=== PATIENT | female | born 1950 | race Hispanic/Latino ===

== ENCOUNTER 2016-08-09 10:10 | Inpatient (IN) | payer MEDICARE, BC ==
[2016-08-09 10:11] VITALS: PULSE 103
[2016-08-09] MEDS ORDERED: Albuterol-Ipratrop 3 mg / 0.5 (3 ml) UD IH STA ×2 (10:22→10:35)
--- NOTE | 2016-08-09 10:44 | ED PDOC ---
HPI: SOB/CHF/COPD Time Seen by Provider: 08/09/16 10:14 Chief Complaint (Nursing): Shortness Of Breath Chief Complaint (Provider): Shortness Of Breath History Per: Patient History/Exam Limitations: no limitations Onset/Duration Of Symptoms: Days Current Symptoms Are (Timing): Still Present Quality: Tightness Exacerbating Factor(s): Coughing Current Respiratory Medications: See Home Med List Severity: Moderate Additional Complaint(s): Patient is a 66 year old female with a history of COPD and AFib, presents to ED for SOB and chest tightness upon waking this morning. Patient notes history of intubation, no relief using nebulizer at home. Denies cough or fever. Past Medical History Reviewed: Historical Data, Nursing Documentation, Vital Signs Vital Signs: Last Vital Signs Temp 97 F L 08/09/16 10:13 Pulse 53 L 08/09/16 10:13 Resp BP 142/68 08/09/16 10:13 Pulse Ox 96 08/09/16 11:06 - Medical History PMH: Arthritis, Cardia Arrhythmia (MAT), CHF, COPD, HTN, Hypercholesterolemia, Peripheral Edema, Rheumatoid Arthritis Denies: Asthma, HIV, Pneumonia, Chronic Kidney Disease - Surgical History Surgical History: Cholecystectomy - Family History Family History: States: Unknown Family Hx - Living Arrangements Living Arrangements: With Family - Home Medications Home Medications: Ambulatory Orders Medication Instructions Recorded Aspirin [Aspirin Chewable] 81 mg PO DAILY #0 chew 07/15/15 Atorvastatin [Lipitor] 10 mg PO HS #0 tab 07/15/15 Gabapentin [Neurontin] 100 mg PO DAILY #0 cap 07/15/15 Gabapentin [Neurontin] 300 mg PO HS #0 cap 07/15/15 Methotrexate 15 mg PO SAT #0 tab 07/15/15 Metoprolol Succinate [Toprol XL] 50 mg PO DAILY #0 tab 07/15/15 Cholecalciferol (Vitamin D3) 2,000 unit PO DAILY 04/23/16 [Vitamin D3] Folic Acid 2 mg PO BID 04/23/16 Hydroxychloroquine Sulfate 400 mg PO DAILY 04/23/16 [Plaquenil] Fluticasone Propionate [Flonase] 2 spr KEVIN DAILY #1 bottle 05/06/16 Tiotropium [Spiriva] 18 mcg INH DAILY #30 cap 05/06/16 acetaZOLAMIDE [Diamox Sequels 500 500 mg PO DAILY #30 cap 05/06/16 mg SR Cap] Albuterol Sulfate [Proair Hfa] 2 puff IH Q4H PRN 08/09/16 Furosemide [Lasix] 40 mg PO BID 08/09/16 Levalbuterol [Xopenex] 1.25 mg PO Q8H 08/09/16 Levocetirizine Dihydrochloride 5 mg PO DAILY 08/09/16 [Xyzal] Mometasone [Asmanex Twisthaler 220 1 puff IH DAILY 08/09/16 MCG] Multivit/Folic Acid/Vit K1 1 tab PO DAILY 08/09/16 [One-A-Day Women's 50 Plus Tab] Omeprazole [Omeprazole] 20 mg PO DAILY 08/09/16 methylPREDNISolone [Medrol] 8 mg PO Q48H 08/09/16 - Allergies Allergies/Adverse Reactions: Allergies Allergy/AdvReac Type Severity Reaction Status Date / Time iodine Allergy RASH Verified 08/09/16 10:16 shellfish derived Allergy RASH Verified 08/09/16 10:16 strawberry Allergy RASH Verified 08/09/16 10:16 Review of Systems ROS Statement: Except As Marked, All Systems Reviewed And Found Negative Constitutional: Negative for: Fever, Chills Cardiovascular: Negative for: Chest Pain, Palpitations Respiratory: Positive for: Shortness of Breath. Negative for: Cough, Sputum Gastrointestinal: Negative for: Nausea, Vomiting Physical Exam - Reviewed Nursing Documentation Reviewed: Yes Vital Signs Reviewed: Yes - Physical Exam Appears: Positive for: Uncomfortable (mild respiratory distress) Skin: Positive for: Normal Color, Warm Eye Exam: Positive for: Normal appearance Neck: Positive for: Normal, Painless ROM Cardiovascular/Chest: Positive for: Chest Non Tender, Tachycardia, Irregularly Irregular. Negative for: Murmur Respiratory: Positive for: Decreased Breath Sounds (bilaterally ), Respiratory Distress (mild). Negative for: Wheezing Gastrointestinal/Abdominal: Positive for: Normal Exam. Negative for: Tenderness , Distended Back: Positive for: Normal Inspection Extremity: Positive for: Normal ROM. Negative for: Pedal Edema, Calf Tenderness Neurologic/Psych: Positive for: Alert, Oriented. Negative for: Motor/Sensory Deficits - ECG O2 Sat by Pulse Oximetry: 96 (RA) Pulse Ox Interpretation: Normal - Critical Care Total Time (In Min): 35 Medical Decision Making Medical Decision Making: Time: 1020 Initial impression: COPD exacerbation Initial plan: -- ABG -- EKG -- CMP -- CBC -- Duoneb x2 and Solumedrol IV -- Vapotherm Scribe Attestation: Documented by Chio Mayer acting as a scribe for Ken Roa MD. MD Willsonibsandor Attestation: All medical record entries made by the Scribe were at my direction and personally dictated by me. I have reviewed the chart and agree that the record accurately reflects my personal performance of the history, physical exam, medical decision making, and the department course for this patient. I have also personally directed, reviewed, and agree with the discharge instructions and disposition. Disposition - Clinical Impression Clinical Impression: COPD (chronic obstructive pulmonary disease), Hypercarbia - Patient ED Disposition Is Patient to be Admitted: Yes - Disposition Disposition Time: 11:02 Condition: FAIR - Pt Status Changed To: Hospital Disposition Of: Inpatient - Admit Certification Admit to Inpatient:: After my assessment, the patient will require hospitalization for at least two midnights. This is because of the severity of symptoms shown, intensity of services needed, and/or the medical risk in this patient being treated as an outpatient. - POA Present On Arrival: None
[2016-08-09] MEDS ORDERED: Albuterol-Ipratrop 3 mg / 0.5 (3 ml) UD ONE (10:56)
[2016-08-09 11:03] LABS: ABG ALLEN TEST YES; ARTERIAL BLOOD GAS HCO3 34.6 mmol/L (21-28); ARTERIAL BLOOD GAS PH 7.37 (7.35-7.45); ARTERIAL BLOOD GAS PO2 19 mm/Hg (80-100)
[2016-08-09] MEDS ORDERED: Azithromycin 500 MG in Sodium Chloride 0.9% 250 ML IVPB STA (11:06)
[2016-08-09] MEDS ORDERED: cefTRIAXone (Rocephin) 1 gm Inj ONE (11:07)
[2016-08-09 11:11] LABS: BASO % 0.5 % (0.0-2.0); EOS # 0.1 K/uL (0.0-0.7); EOS % 0.7 % (0.0-4.0); HEMATOCRIT 39.7 % (34.0-47.0); LYMPH # 0.5 K/uL (1.0-4.3); MEAN CELL VOLUME 102.8 fl (81.0-99.0); MEAN CORPUSCULAR HEMOGLOBIN 33.5 pg (27.0-31.0); MEAN CORPUSCULAR HGB CONC 32.6 g/dL (33.0-37.0); MEAN PLATELET VOLUME 8.8 fl (7.2-11.7); MONO # 0.6 K/uL (0.0-0.8); MONO % 6.5 % (0.0-10.0); NEUT # 8.1 K/uL (1.8-7.0); NEUT % 87.3 % (50.0-75.0); NRBC % 0.2 % (0.0-0.0); PLATELET COUNT 207 K/uL (130-400); RED CELL DISTRIBUTION WIDTH 16.3 % (11.5-14.5); WHITE BLOOD COUNT 9.2 K/uL (4.8-10.8)
[2016-08-09 11:20] LABS: ALB/GLOB RATIO 1.1 (1.0-2.1); ALKALINE PHOSPHATASE 102 U/L (38-126); ALT/SGPT 29 U/L (9-52); AST/SGOT 34 U/L (14-36); BILIRUBIN,TOTAL 0.7 mg/dl (0.2-1.3); BLOOD UREA NITROGEN 14 mg/dl (7-17); CALCIUM 9.8 mg/dL (8.4-10.2); CHLORIDE 90 mmol/L (98-107); GFR AFRICAN-AMERICAN > 60; GLUCOSE,RANDOM 125 mg/dL (65-105); POTASSIUM 3.8 MMOL/L (3.6-5.0); SODIUM 137 mmol/l (132-148); TOTAL PROTEIN 7.8 G/DL (6.3-8.2)
[2016-08-09 11:31] LABS: CARBON DIOXIDE 40 mmol/L (22-30)
[2016-08-09 12:00] LABS: BASOPHIL 1 % (0-2); EOSINOPHIL 2 % (0-7); NEUTROPHIL 87 % (42-75); TOTAL CELLS COUNTED 100
[2016-08-09] MEDS ORDERED: Levalbuterol 1.25 MG/3 ML Inhal Soln UD INH SCH (12:30)
[2016-08-09] MEDS ORDERED: Sodium Chloride 3% for Inhalation 4 ML VIAL.NEB IH PRN (12:35)
--- NOTE | 2016-08-09 13:07 | RAD ---
HISTORY: Cough. COMPARISON: 06/16/2015 and 04/25/2016. FINDINGS: LUNGS: New right lower lobe infiltrate. New left upper lobe infiltrate. PLEURA: No significant pleural effusion identified, no pneumothorax apparent. CARDIOVASCULAR: Normal. OSSEOUS STRUCTURES: No significant abnormalities. VISUALIZED UPPER ABDOMEN: Normal. OTHER FINDINGS: None. IMPRESSION: Bilateral infiltrates, these represent new findings compared to prior studies. Follow-up to resolution advised.
--- NOTE | 2016-08-09 13:18 | CP.PCM.HP ---
History of Present Illness - History of Present Illness History of Present Illness: Hospitalist Admission H&P (Patient was seen and examined at 11:45 AM 08/09/16 ER BED #10 PMD: Dr. Yusuf CODES STATUS: FULL CODE. Has a Living Will at home and was instructed to bring this in on 08/10/16. Designates Macario [phone] as Health Care Proxy CHIEF COMPLAINT: Increasing SOB 66 year old female (PMHx: COPD, CHF, HTN, HLD, RA, Chornic LE Edema, Transient Atrial Fibrillation) who presents to the ER via EMS with her with a chief complaint of SOB. Patient states that for the past few days now she has been having worsening episodes of SOB. As mentioned she has a long history of COPD and is on home O2 at 2L via [place]. She uses a walker and a wheelchair to get around at home. Initially these episodes of SOB were responding to her nebulizer treatments but this morning, the nebulizer was not providing any relief. Because of this her called EMS and she was brought to [facility] ER. Please note that the patient was admitted to ICU on 04/23/16 for treatment of Acute Hypercapnic Respiratory Failure secondary to COPD Exacerbation and CHF Exacerbation. She was then transferred to [facility] TCU on 04/28/16 to continue treatment and for PT/OT. She was treated during this admission also for UTI (+) Enterococcus with Microbid and repeat Urine Culture 05/04/16 was Negative. 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 She was then discharged home on 05/06/16. Currently upon FULL ROS there is NO chest pain, NO palpitations, NO fever (but states that she is always cold), NO increase in the amount of coughing (she states that she has a chronic cough that is nonproductive, she had one episode of coughing while being treated in the ER that produced light green material), SOB although present has improved slightly with nebulizer and steroid treatment in the ER, NO dysphagia/odynophagia, NO abdominal pain, NO n/v/d/c, No black or blood stools, NO burning/pain with urination, NO headache, (+) Blurriness of vision with the SOB but is currently not experiecing this, NO eye pain, NO loss of vision, NO ear pain/loss of hearing/tinnitus, NO new changes in hearing/ear pain, NO lightheadedness/dizziness, NO paresthesias, (+) Edema: chronic lower extremity edema that has remained stable and improved with the wrapping of the bilateral lower legs with vikas bandages, (+) Insomnia: has no trouble falling asleep but will wake up after 3 to 4 hours and then have difficulty falling back to sleep. 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, (+) Tobacco 2 packs a day for 50 years having quit many years ago, NO alcohol, NO illicit drugs Family HX: Mom ( Colon CA ), Dad ( HTN, DM 1 ), Brother ( HTN ) Present on Admission - Present on Admission Any Indicators Present on Admission: Yes History of DVT/PE: No History of Uncontrolled Diabetes: No Urinary Catheter: No Decubitus Ulcer Present: No Review of Systems - Review of Systems Review of Systems: Please see HPI Past Patient History - Infectious Disease Hx of Infectious Diseases: None - Past Medical History & Family History Past Medical History?: Yes Pertinent Family History: Please see HPI - Past Social History Smoking Status: Never Smoked - CARDIAC Hx Cardia Arrhythmia: Yes (MAT) Hx Congestive Heart Failure: Yes Hx Hypercholesterolemia: Yes Hx Hypertension: Yes Hx Peripheral Edema: Yes - PULMONARY Hx Asthma: No Hx Chronic Obstructive Pulmonary Disease (COPD): Yes Hx Pneumonia: No - NEUROLOGICAL Hx Neurological Disorder: No - HEENT Hx HEENT Problems: No - RENAL Hx Chronic Kidney Disease: No - ENDOCRINE/METABOLIC Hx Endocrine Disorders: No - HEMATOLOGICAL/ONCOLOGICAL Hx Human Immunodeficiency Virus (HIV): No - INTEGUMENTARY Other/Comment: 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 - MUSCULOSKELETAL/RHEUMATOLOGICAL Hx Arthritis: Yes Hx Rheumatoid Arthritis: Yes - GASTROINTESTINAL Hx Gastrointestinal Disorders: No - GENITOURINARY/GYNECOLOGICAL Hx Genitourinary Disorders: No - PSYCHIATRIC Hx Psychophysiologic Disorder: No Hx Substance Use: No - SURGICAL HISTORY Hx Cholecystectomy: Yes - ANESTHESIA Hx Anesthesia: Yes Hx Anesthesia Reactions: No Hx Malignant Hyperthermia: No Meds Allergies/Adverse Reactions: Allergies Allergy/AdvReac Type Severity Reaction Status Date / Time iodine Allergy RASH Verified 08/09/16 10:16 shellfish derived Allergy RASH Verified 08/09/16 10:16 strawberry Allergy RASH Verified 08/09/16 10:16 Physical Exam - Constitutional Appears: No Acute Distress Additional comments: Patient receiving nebulizer treatment at the time of my exam Will have to stop and take in a deep breath after every 5 to 6 words NO accessory muscles of respiration being used and no nasal flaring - Head Exam Additional comments: 1 x .5 cm pink papule in the junction of the occipital and bilateral parietal scalps - Eye Exam Eye Exam: EOMI, Normal appearance, PERRL Pupil Exam: NORMAL ACCOMODATION, PERRL - ENT Exam Additional comments: Ruptured Central Nasal Septum (she states that she has a history of this) Tongue with light yellow/white exudate that is easily scrapable Mucous membranes are dry NO pharyngeal erythema/exudate NO thyromegaly NO cervical/supraclavicular/submandibular lymphadenopathy - Neck Exam Additional comments: Please see ENT Exam - Respiratory Exam Additional comments: Bilateral mid to lower lung field inspiratory crackles Scattered expiratory wheezes bilaterally - Cardiovascular Exam Cardiovascular Exam: Irregular Rhythm Additional comments: Irregularly irregular NO M/R/G - GI/Abdominal Exam Additional comments: BSx4, Soft, NT, Central Obesity therefore Liver and Spleen could not be palpated , NO guarding/rebound tenderness - Extremities Exam Additional comments: BILATERAL PULSES ARE STRONG AND EQUAL CAPILLARY REFILL IS 2 SECONDS BILATERAL LOWER LEGS SHOW 1+ EDEMA UPTO THE BILATERAL TIBIAL TUBEROSITIES. BILATERAL LOWER LEGS ANTERIOR SURFACE HAS HYPERKERATOSIS AND AREAS OF PEELING OF THE SKIN WITHOUT EVIDENCE OF CELLULITIS BILATERAL FEET TOES SHOW CYANOSIS AND ARE SLIGHTLY COOL TO THE TOUCH - Neurological Exam Neurological exam: Alert, CN II-XII Intact, Oriented x3 - Psychiatric Exam Psychiatric exam: Normal Affect, Normal Mood Results - Vital Signs Recent Vital Signs: Last Vital Signs Temp 97 F L 08/09/16 10:13 Pulse 53 L 08/09/16 10:13 Resp 20 08/09/16 11:44 BP 142/68 08/09/16 10:13 Pulse Ox 96 08/09/16 11:13 - Labs Result Diagrams: 08/09/16 11:02 08/09/16 11:02 Assessment & Plan (1) COPD exacerbation Assessment and Plan: Admit to the Telemetry Unit Consult Pulmonology Dr. Kozel Solumedrol 60 mg IV Q6H Xopenex 1.25 mg nebulizer Q8H Hi Flow Oxygen 20 LPM 30% FiO2 Asmanex 220 mcg puff INH 1x/day Spiriva 18 mcg 2 PO INH of 1 capsule via Handihaler Device 1x/dayy Status: Acute (2) Bilateral pneumonia Assessment and Plan: Chest X Ray 08/09/16 shows new RLL and STEPHEN infiltrates Ceftriaxone 1 gm IV Q24H Azithromycin 500 mg IV Q24H F/U Rapid Influenza F/U Throat Culture F/U Urine Legionella F/U Urine S. pneumniae F/U Mycoplasma IgM and IgG F/U Blood Culture F/U further antibiotic recommendations from ID Dr. Armani Cantor Status: Acute (3) Transient atrial fibrillation Assessment and Plan: Patient has a history of this as documented on 06/29/15 admission Upon last admission in April 2016 patient was not in Atrial Fibrillation She states that she is being followed as an outpatient by [employer] Dr. Cole who has been consulted. ASA 81 mg PO 1x/day Metoprolol XL 50 mg PO 1x/day F/U TSH, T4 Status: Chronic (4) History of CHF (congestive heart failure) Assessment and Plan: Please see last Echocardiogram report 04/24/16 Lasix 40 mg PO 2x/day Metoprolol XL 50 mg PO 1x/day Acetazolamide 500 mg PO 1x/day Patient is being followed by Dr. Cole as outpatient Likely not on an VIKAS I/ARB because of the Chronic Cough Secondary to COPD Status: Chronic (5) HTN (hypertension) Assessment and Plan: Metoprolol XL 50 mg PO 1x/day Status: Chronic (6) Hyperlipidemia Assessment and Plan: Atorvastatin 10 mg PO QHS F/U Lipid Panel Status: Chronic (7) GERD (gastroesophageal reflux disease) Assessment and Plan: Omeprazole 20 mg PO 1x/day Status: Chronic (8) Rheumatoid arthritis Assessment and Plan: Methotrexate 15 mg PO 1x/day on Saturday Folic Acid 2 mg PO 2x/day Plaquenil 400 mg PO 1x/day Gabapentin 300 mg PO QHS Gabapentin 100 mg PO 1x/day Status: Chronic Priority: High (9) Leg edema Assessment and Plan: This is a chronic issue Please see description of findings in Extremities Exam Lac-hydrin 12 % Lotion Topical 2x/day to Bilateral Lower Legs and then Wrap with Vikas Bandages Status: Chronic Priority: Medium (10) Prophylactic measure Assessment and Plan: Lovenox 40 mg SC 1x/day for DVT Prophylaxis Omeprazole 20 mg PO 1x/day for GI Prophylaxis Florastor 250 mg PO 2x/day as patient has been placed on antibiotics for the Bilateral Lung Infiltrates MVI PO 1x/day Cholecalciferal 2,000 Units PO 1x/day Status: Acute
--- NOTE | 2016-08-09 14:43 | CP.PCM.CON ---
History of Present Illness - History of Present Illness History of Present Illness: This 66-year-old female who is a former cigarette smoker presented to the hospital after she began to have increased somnolence and dropping items suggesting exacerbation of her hypercapnic respiratory failure. She has long- standing history of chronic obstructive pulmonary disease with prior episodes of acute on chronic respiratory failure with hypercapnia and hypoxemia. She suffers from pulmonary hypertension as well as rheumatoid arthritis, spinal stenosis, hypertension, hyperlipidemia, atrial fibrillation/MAT, chronic and venous insufficiency stasis dermatitis of both lower extremities. She had been in her usual state of health at home and taking all her medications as prescribed when her family members noted the above symptoms began suddenly the day of admission. She denied chest pain. There has been no hemoptysis. No fever or chills. Small quantity of sputum is being expectorated with a pale yellow color. Chest x-ray in emergency department showed questionable pulmonary infiltrates bilaterally. Review of Systems - Constitutional Constitutional: Daytime Sleepiness, Fatigue - Cardiovascular Cardiovascular: Irregular Heart Rhythm, Leg Edema - Respiratory Respiratory: Cough, Dyspnea, Change in Mucous Color - Musculoskeletal Musculoskeletal: Back Pain - Integumentary Integumentary: Erythema, Swelling - Neurological Neurological: Confusion Past Patient History - Infectious Disease Hx of Infectious Diseases: None - Past Medical History & Family History Past Medical History?: Yes Pertinent Family History: Colon cancer, coronary artery disease, hyperlipidemia, diabetes mellitus, hypertension. - Past Social History Smoking Status: Former Smoker Chewing Tobacco Use: No Cigar Use: No Alcohol: Social Drugs: Denies Home Situation {Lives}: With Family - CARDIAC Hx Atrial Fibrillation: Yes Hx Cardia Arrhythmia: Yes (MAT) Hx Congestive Heart Failure: Yes Hx Hypercholesterolemia: Yes Hx Hypertension: Yes Hx Peripheral Edema: Yes - PULMONARY Hx Asthma: No Hx Bronchitis: Yes Hx Chronic Obstructive Pulmonary Disease (COPD): Yes Hx Pneumonia: No Other/Comment: pulmonary hypertension - NEUROLOGICAL Hx Neurological Disorder: No - HEENT Hx HEENT Problems: No - RENAL Hx Chronic Kidney Disease: No - ENDOCRINE/METABOLIC Hx Endocrine Disorders: No - HEMATOLOGICAL/ONCOLOGICAL Hx Anemia: Yes Hx Human Immunodeficiency Virus (HIV): No - INTEGUMENTARY Hx Dermatological Problems: Yes Other/Comment: 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 - MUSCULOSKELETAL/RHEUMATOLOGICAL Hx Rheumatoid Arthritis: Yes Hx Spinal Stenosis: Yes - GASTROINTESTINAL Hx Gastrointestinal Disorders: No - GENITOURINARY/GYNECOLOGICAL Hx Genitourinary Disorders: No - PSYCHIATRIC Hx Psychophysiologic Disorder: No Hx Substance Use: No - SURGICAL HISTORY Hx Cholecystectomy: Yes Hx Joint Replacement: Yes (total right hip) - ANESTHESIA Hx Anesthesia: Yes Hx Anesthesia Reactions: No Hx Malignant Hyperthermia: No Meds Allergies/Adverse Reactions: Allergies Allergy/AdvReac Type Severity Reaction Status Date / Time iodine Allergy RASH Verified 08/09/16 10:16 shellfish derived Allergy RASH Verified 08/09/16 10:16 strawberry Allergy RASH Verified 08/09/16 10:16 - Medications Medications: Current Medications Acetazolamide (Diamox Sequels 500 Mg Sr Cap) 500 mg PO DAILY [facility] Aspirin (Aspirin Chewable) 81 mg PO DAILY [facility] Atorvastatin Calcium (Lipitor) 10 mg PO HS [facility] Cholecalciferol (Vitamin D) 2,000 iu PO DAILY [facility] Enoxaparin Sodium (Lovenox) 40 mg SC DAILY [facility] PRN Reason: Protocol Fluticasone Propionate (Flonase) 2 spr KEVIN DAILY [facility] Folic Acid (Folic Acid) 2 mg PO BID [facility] Furosemide (Lasix) 40 mg PO BID [facility] Gabapentin (Neurontin) 100 mg PO DAILY [facility] Gabapentin (Neurontin) 300 mg PO HS [facility] Hydroxychloroquine Sulfate (Plaquenil) 400 mg PO DAILY [facility] Azithromycin 500 mg/ Sodium (Chloride) 250 mls @ 250 mls/hr IVPB DAILY [facility] Ceftriaxone Sodium 1 gm/ (Sodium Chloride) 100 mls @ 100 mls/hr IVPB Q24H [facility] Levalbuterol HCl (Xopenex) 1.25 mg INH Q8H [facility] Loratadine (Claritin) 10 mg PO DAILY [facility] Methotrexate (Methotrexate) 15 mg PO SAT [facility] PRN Reason: Protocol Methylprednisolone (Solu-Medrol) 60 mg IVP Q6H [facility] Metoprolol Succinate (Toprol Xl) 50 mg PO DAILY [facility] Mometasone Furoate (Asmanex Twisthaler 220 Mcg) 1 puff IH DAILY [facility] Multivitamins/Minerals (Therapeutic-M Tab) 1 tab PO DAILY [facility] Pantoprazole Sodium (Protonix Ec Tab) 40 mg PO DAILY [facility] Saccharomyces Boulardii (Florastor) 250 mg PO BID [facility] Tiotropium [place] (Spiriva) 18 mcg INH DAILY [facility] Physical Exam - Additional Findings Additional findings: Overweight female who is awake and oriented and alert at this time. Peripheral cyanosis cool extremities is noted in both feet. Dorsalis pedis pulse is decreased but present bilaterally. Contact dermatitis changes secondary to long-standing dependent edema is noted in both lower extremities. No calf tenderness or Homans sign. No palpable lymphadenopathy. Pharynx is pink and mucous membranes are moist. No exudate. Conjunctivae are pink and there is no scleral icterus. Pupils are equal and reactive. Neck supple and trachea is midline. No neck vein distention or carotid bruit. No palpable thyromegaly. Increased AP diameter of the thorax is noted mild cervical kyphosis. No dullness to percussion. Breath sounds are markedly diminished bilaterally. Dry rales are heard in the lower lung andrade posteriorly. Occasional scattered expiratory wheezes are heard bilaterally. No bronchial breathing or egophony. Heart sounds are distant. Rhythm is irregularly irregular. Abdomen is fleshy, obese and nontender. Bowel sounds are normal. Results - Vital Signs Recent Vital Signs: Last Vital Signs Temp 97 F L 08/09/16 10:13 Pulse 77 08/09/16 12:38 Resp 16 08/09/16 12:38 BP 128/75 08/09/16 12:38 Pulse Ox 96 08/09/16 12:38 - Labs Result Diagrams: 08/09/16 11:02 08/09/16 11:02 Assessment & Plan (1) Acute on chronic respiratory failure with hypoxia and hypercapnia Status: Acute Priority: High (2) COPD (chronic obstructive pulmonary disease) Status: Chronic Priority: High (3) Atrial fibrillation Status: Acute Priority: High Comment: controlled ventricular rate (4) Leg edema Status: Chronic Priority: Medium (5) Rheumatoid arthritis Status: Chronic Priority: High (6) Pulmonary hypertension Status: Chronic Priority: High - Assessment and Plan (Free Text) Plan: Treatment of underlying chronic obstructive pulmonary disease and hypercarbic respiratory failure and hypoxemia with the use of high flow nasal oxygen. Aerosol therapy and parenteral corticosteroids will also be employed. Empiric antibiotic therapy for possible pneumonia. Maintenance medications will be continued. Breast surgery consult regarding chronic dependent edema of the lower extremities with cyanosis. Prophylactic anticoagulant as per protocol. - Date & Time Date: 08/09/16 Time: 14:43
[2016-08-09] MEDS: Mometasone 220 mcg/puff-14 puff Inh IH SCH (15:07)
[2016-08-09] MEDS: Enoxaparin 40 mg Syringe SC SCH (15:08)
[2016-08-09] MEDS: Tiotropium 18 mcg Cap For Inhalation INH SCH (15:09)
[2016-08-09] MEDS: Multivitamin With Minerals Tab PO SCH (15:09)
[2016-08-09] MEDS: Pantoprazole 40 mg EC Tab PO SCH (15:14)
--- NOTE | 2016-08-09 16:20 | CP.PCM.CON ---
<Margarita Vega - Last Filed: 08/09/16 16:15> History of Present Illness - History of Present Illness History of Present Illness: Vascular surgery consult - Dr. Valdez Consult Re: Venous Insufficiency 66 yo F w/ hx of COPD, CHF, HTN, HL, RA, Chronic LE edema, Parox. Afib, who presented to ED w/ worsening SOB and COPD exacerbation. Vascular surgery is consulted for Venous insufficiency. Pt is S&E at bedside. At time of exam pt is SOB and history is obtained mostly from . Per pt. has chronic swelling of the legs B/L. This is currently no better or worse than usual. She does not experience leg discomfort while walking, however is unable to walk a block without becoming SOB. She has never experienced any ulcers in the extremities. Pt states that in the past she has used evans wraps at home and lasix to manage the swelling. Review of Systems - Review of Systems All systems: reviewed and no additional remarkable complaints except (as per HPI ) Past Patient History - Infectious Disease Hx of Infectious Diseases: None - Past Medical History & Family History Past Medical History?: Yes - CARDIAC Hx Cardia Arrhythmia: Yes (MAT) Hx Congestive Heart Failure: Yes Hx Hypercholesterolemia: Yes Hx Hypertension: Yes Hx Peripheral Edema: Yes - PULMONARY Hx Asthma: No Hx Chronic Obstructive Pulmonary Disease (COPD): Yes Hx Pneumonia: No - NEUROLOGICAL Hx Neurological Disorder: No - HEENT Hx HEENT Problems: No - RENAL Hx Chronic Kidney Disease: No - ENDOCRINE/METABOLIC Hx Endocrine Disorders: No - HEMATOLOGICAL/ONCOLOGICAL Hx Human Immunodeficiency Virus (HIV): No - INTEGUMENTARY Other/Comment: 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 - MUSCULOSKELETAL/RHEUMATOLOGICAL Hx Arthritis: Yes Hx Rheumatoid Arthritis: Yes - GASTROINTESTINAL Hx Gastrointestinal Disorders: No - GENITOURINARY/GYNECOLOGICAL Hx Genitourinary Disorders: No - PSYCHIATRIC Hx Psychophysiologic Disorder: No Hx Substance Use: No - SURGICAL HISTORY Hx Cholecystectomy: Yes - ANESTHESIA Hx Anesthesia: Yes Hx Anesthesia Reactions: No Hx Malignant Hyperthermia: No Meds Allergies/Adverse Reactions: Allergies Allergy/AdvReac Type Severity Reaction Status Date / Time iodine Allergy RASH Verified 08/09/16 10:16 shellfish derived Allergy RASH Verified 08/09/16 10:16 strawberry Allergy RASH Verified 08/09/16 10:16 - Medications Medications: Current Medications Acetazolamide (Diamox Sequels 500 Mg Sr Cap) 500 mg PO DAILY [facility] Aspirin (Aspirin Chewable) 81 mg PO DAILY [facility] Last Admin: 08/09/16 15:14 Dose: 81 mg Atorvastatin Calcium (Lipitor) 10 mg PO HS [facility] Cholecalciferol (Vitamin D) 2,000 iu PO DAILY [facility] Enoxaparin Sodium (Lovenox) 40 mg SC DAILY [facility] PRN Reason: Protocol Last Admin: 08/09/16 15:08 Dose: 40 mg Fluticasone Propionate (Flonase) 2 spr KEVIN DAILY [facility] Folic Acid (Folic Acid) 2 mg PO BID [facility] Furosemide (Lasix) 40 mg PO BID [facility] Gabapentin (Neurontin) 100 mg PO DAILY [facility] Gabapentin (Neurontin) 300 mg PO HS [facility] Hydroxychloroquine Sulfate (Plaquenil) 400 mg PO DAILY [facility] Azithromycin 500 mg/ Sodium (Chloride) 250 mls @ 250 mls/hr IVPB DAILY [facility] Ceftriaxone Sodium 1 gm/ (Sodium Chloride) 100 mls @ 100 mls/hr IVPB Q24H [facility] Levalbuterol HCl (Xopenex) 1.25 mg INH Q8H [facility] Loratadine (Claritin) 10 mg PO DAILY [facility] Methotrexate (Methotrexate) 15 mg PO SAT [facility] PRN Reason: Protocol Methylprednisolone (Solu-Medrol) 60 mg IVP Q6H [facility] Metoprolol Succinate (Toprol Xl) 50 mg PO DAILY [facility] Mometasone Furoate (Asmanex Twisthaler 220 Mcg) 1 puff IH DAILY [facility] Last Admin: 08/09/16 15:07 Dose: 1 puff Multivitamins/Minerals (Therapeutic-M Tab) 1 tab PO DAILY [facility] Last Admin: 08/09/16 15:09 Dose: 1 tab Pantoprazole Sodium (Protonix Ec Tab) 40 mg PO DAILY [facility] Last Admin: 08/09/16 15:14 Dose: 40 mg Saccharomyces Boulardii (Florastor) 250 mg PO BID [facility] Tiotropium [place] (Spiriva) 18 mcg INH DAILY [facility] Last Admin: 08/09/16 15:09 Dose: 18 mcg Physical Exam - Constitutional Appears: In Acute Distress (SOB, Tachypneic) - Head Exam Head Exam: ATRAUMATIC, NORMAL INSPECTION, NORMOCEPHALIC - Eye Exam Eye Exam: Normal appearance - Respiratory Exam Respiratory Exam: Prolonged Expiratory Phase, Respiratory Distress Additional comments: on high flow O2 - Cardiovascular Exam Cardiovascular Exam: Tachycardia - Extremities Exam Extremities exam: Positive for: pedal edema, pedal pulses present (faint pedal and femoral pulses). Negative for: tenderness Additional comments: blue skin coloration to the toes pitting edema mild venous stasis changes - Neurological Exam Neurological exam: Alert, Oriented x3 - Psychiatric Exam Psychiatric exam: Anxious, Normal Affect - Skin Skin Exam: Cyanosis, Dry, Intact Results - Vital Signs Recent Vital Signs: Last Vital Signs Temp 97.6 F 08/09/16 15:54 Pulse 66 08/09/16 15:54 Resp 22 08/09/16 15:54 BP 164/70 H 08/09/16 15:54 Pulse Ox 89 L 08/09/16 15:54 - Labs Result Diagrams: 08/09/16 11:02 08/09/16 11:02 Assessment & Plan - Assessment and Plan (Free Text) Assessment: 66 yo F admitted w/ COPD exacerbation, vascular surgery consulted for venous insufficiency -Primary concern at this time is her oxygenation -ICU evaluation and breathing tx as per Pulmonology -Peripheral pulses poor -Will order for Arterial and Venous Duplex LE to be done when pt. more stable Dw Dr Courtney Vega PGY2 <Brayan Valdez - Last Filed: 08/09/16 17:00> Meds - Medications Medications: Current Medications Acetazolamide (Diamox Sequels 500 Mg Sr Cap) 500 mg PO DAILY [facility] Aspirin (Aspirin Chewable) 81 mg PO DAILY [facility] Last Admin: 08/09/16 15:14 Dose: 81 mg Atorvastatin Calcium (Lipitor) 10 mg PO HS [facility] Cholecalciferol (Vitamin D) 2,000 iu PO DAILY [facility] Enoxaparin Sodium (Lovenox) 40 mg SC DAILY [facility] PRN Reason: Protocol Last Admin: 08/09/16 15:08 Dose: 40 mg Fluticasone Propionate (Flonase) 2 spr KEVIN DAILY [facility] Folic Acid (Folic Acid) 2 mg PO BID [facility] Furosemide (Lasix) 40 mg PO BID [facility] Gabapentin (Neurontin) 100 mg PO DAILY [facility] Gabapentin (Neurontin) 300 mg PO HS [facility] Hydroxychloroquine Sulfate (Plaquenil) 400 mg PO DAILY [facility] Azithromycin 500 mg/ Sodium (Chloride) 250 mls @ 250 mls/hr IVPB DAILY [facility] Ceftriaxone Sodium 1 gm/ (Sodium Chloride) 100 mls @ 100 mls/hr IVPB Q24H [facility] Last Admin: 08/09/16 16:22 Dose: Not Given Methylprednisolone 60 mg/ (Sodium Chloride) 50 mls @ 100 mls/hr IVPB Q6 [facility] Levalbuterol HCl (Xopenex) 1.25 mg INH Q8H [facility] Last Admin: 08/09/16 16:21 Dose: 1.25 mg Loratadine (Claritin) 10 mg PO DAILY [facility] Methotrexate (Methotrexate) 15 mg PO SAT [facility] PRN Reason: Protocol Metoprolol Succinate (Toprol Xl) 50 mg PO DAILY [facility] Mometasone Furoate (Asmanex Twisthaler 220 Mcg) 1 puff IH DAILY [facility] Last Admin: 08/09/16 15:07 Dose: 1 puff Multivitamins/Minerals (Therapeutic-M Tab) 1 tab PO DAILY [facility] Last Admin: 08/09/16 15:09 Dose: 1 tab Pantoprazole Sodium (Protonix Ec Tab) 40 mg PO DAILY [facility] Last Admin: 08/09/16 15:14 Dose: 40 mg Saccharomyces Boulardii (Florastor) 250 mg PO BID [facility] Tiotropium [place] (Spiriva) 18 mcg INH DAILY [facility] Last Admin: 08/09/16 15:09 Dose: 18 mcg Results - Vital Signs Recent Vital Signs: Last Vital Signs Temp 98.0 F 08/09/16 16:40 Pulse 72 08/09/16 16:40 Resp 20 08/09/16 16:40 BP 145/33 L 08/09/16 16:40 Pulse Ox 99 08/09/16 16:40 - Labs Result Diagrams: 08/09/16 11:02 08/09/16 11:02 Labs: Laboratory Results - last 24 hr 08/09/16 16:25 pCO2 111 H* pO2 30 L* HCO3 29.5 H ABG pH 7.17 L* ABG Total CO2 43.9 H ABG O2 Saturation 52.2 L ABG O2 Content 9.8 L ABG Base Excess 7.5 H ABG Hemoglobin 13.9 ABG Carboxyhemoglobin 2.3 H POC ABG HHb (Measured) 45.9 H ABG Methemoglobin 1.7 ABG O2 Capacity 18.8 Jorge Luis Test Yes A-a O2 Difference 45.0 Hgb O2 Saturation 50.1 L Liter Flow 35 Vent Mode Hfnc FiO2 30.0 Crit Value Called To Dr jimbo awan Crit Value Called By Rt Crit Value Read Back Y Blood Gas Notified Time 1631 Assessment & Plan - Assessment and Plan (Free Text) Plan: Patient seen and examined. 66 year-old female with significant risk factors for PAD including history of tobacco smoking presents with severe COPD exacerbation. Patient was noted to have bluish discoloration to her toes bilaterally which precipitated Vascular Surgery consult to assess for venous insufficiency. Patient is tachypneic with apparent difficulty breathing. Her recent arterial blood gas was significant for pronounced acidosis with severe hypercapnia and hypoxemia. Lower extremities are motor-sensory and neurologically intact with no signs of carrillo ischemia. There is bluish discoloration to the toes bilaterally which likely reflects poor respiratory status and possibly underlying venous insufficiency. From vascular standpoint I don't appreciate the need of surgical intervention. Supportive treatment is recommended at this point including lower extremities elevation, close monitoring and improvement of respiratory status.
[2016-08-09 16:31] LABS: ABG ALLEN TEST YES; ARTERIAL BLOOD FLOW 35; ARTERIAL BLOOD GAS HCO3 29.5 mmol/L (21-28); ARTERIAL BLOOD GAS MODE HFNC; ARTERIAL BLOOD GAS O2 CAPACITY 18.8 mL/dL (16-24); ARTERIAL BLOOD GAS O2 CONTENT 9.8 ML/dL (15-23); ARTERIAL BLOOD GAS PH 7.17 (7.35-7.45); ARTERIAL BLOOD GAS PO2 30 mm/Hg (80-100); ARTERIAL BLOOD HGB O2 SAT 50.1 % (95.0-98.0); CARBOXYHEMOGLOBIN 2.3 % (0.5-1.5); HHB 45.9 % (0.0-5.0); METHEMOGLOBIN 1.7 % (0.0-3.0)
--- NOTE | 2016-08-09 16:58 | CP.PCM.CON ---
History of Present Illness - History of Present Illness History of Present Illness: Infectious Disease Consultation Note- asked to see this patient at the request of the hospitalist for antibiotic management for COPD exacerbation . HPI- Pt. with multiple previous admissions for COPd exacerbation last admission was . last time I had seen patient for consultation was 06/2015 for copd exacerbation and she did well on empiric zithromax and ceftriaxone and pulmonary regimen as per pulm. Pt. is a 66 year old female with PMH of COPD, RA on immunosuppresive meds including methotrexate, prednisone and plaquenil, vascular insufficiency who was admitted today with progressive sob and worsening cough with yellow phlegm as per pt's who is providing most of the history since pt. is currently on BIPAP. pt. denies any fever or chills, denies any sick contacts and denies any recent travel. Also pt's LE have been getting more edematous and darker in color as per pt's who states he applies lac-hydrin to patient's legs daily. Pt. was found to be in hypercapneic resp distress today and hence was transferred to ICU for closer monitoring and is currently on BIPAP and her CXR shows b/l infiltrates and hence I'm asked to help with antibiotic management . Review of Systems - Review of Systems Review of Systems: ROS- denies any fever or chills, denies any VENEGAS, + cough with yellow phlegm past few days along with increase in her sob past few days, denies any chestpain, denies any abd. pain,denies any dysurea, denies any diarrhea worsening edema in B/L LE. denies any recent travel denies any sick contacts Past Patient History - Infectious Disease Hx of Infectious Diseases: None - Past Medical History & Family History Past Medical History?: Yes - Past Social History Smoking Status: Never Smoked Alcohol: None Drugs: Denies Home Situation {Lives}: With Family - CARDIAC Hx Cardia Arrhythmia: Yes (MAT) Hx Congestive Heart Failure: Yes Hx Hypercholesterolemia: Yes Hx Hypertension: Yes Hx Peripheral Edema: Yes - PULMONARY Hx Asthma: No Hx Chronic Obstructive Pulmonary Disease (COPD): Yes Hx Pneumonia: No - NEUROLOGICAL Hx Neurological Disorder: No - HEENT Hx HEENT Problems: No - RENAL Hx Chronic Kidney Disease: No - ENDOCRINE/METABOLIC Hx Endocrine Disorders: No - INTEGUMENTARY Other/Comment: 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 - MUSCULOSKELETAL/RHEUMATOLOGICAL Hx Arthritis: Yes Hx Rheumatoid Arthritis: Yes - GASTROINTESTINAL Hx Gastrointestinal Disorders: No - GENITOURINARY/GYNECOLOGICAL Hx Genitourinary Disorders: No - PSYCHIATRIC Hx Psychophysiologic Disorder: No Hx Substance Use: No - SURGICAL HISTORY Hx Cholecystectomy: Yes - ANESTHESIA Hx Anesthesia: Yes Hx Anesthesia Reactions: No Hx Malignant Hyperthermia: No Meds Allergies/Adverse Reactions: Allergies Allergy/AdvReac Type Severity Reaction Status Date / Time iodine Allergy RASH Verified 08/09/16 10:16 shellfish derived Allergy RASH Verified 08/09/16 10:16 strawberry Allergy RASH Verified 08/09/16 10:16 - Medications Medications: Current Medications Acetazolamide (Diamox Sequels 500 Mg Sr Cap) 500 mg PO DAILY [facility] Aspirin (Aspirin Chewable) 81 mg PO DAILY [facility] Last Admin: 08/09/16 15:14 Dose: 81 mg Atorvastatin Calcium (Lipitor) 10 mg PO HS [facility] Cholecalciferol (Vitamin D) 2,000 iu PO DAILY [facility] Enoxaparin Sodium (Lovenox) 40 mg SC DAILY [facility] PRN Reason: Protocol Last Admin: 08/09/16 15:08 Dose: 40 mg Fluticasone Propionate (Flonase) 2 spr KEVIN DAILY [facility] Folic Acid (Folic Acid) 2 mg PO BID [facility] Furosemide (Lasix) 40 mg PO BID [facility] Gabapentin (Neurontin) 100 mg PO DAILY [facility] Gabapentin (Neurontin) 300 mg PO HS [facility] Hydroxychloroquine Sulfate (Plaquenil) 400 mg PO DAILY [facility] Azithromycin 500 mg/ Sodium (Chloride) 250 mls @ 250 mls/hr IVPB DAILY [facility] Ceftriaxone Sodium 1 gm/ (Sodium Chloride) 100 mls @ 100 mls/hr IVPB Q24H [facility] Last Admin: 08/09/16 16:22 Dose: Not Given Methylprednisolone 60 mg/ (Sodium Chloride) 50 mls @ 100 mls/hr IVPB Q6 [facility] Levalbuterol HCl (Xopenex) 1.25 mg INH Q8H [facility] Last Admin: 08/09/16 16:21 Dose: 1.25 mg Loratadine (Claritin) 10 mg PO DAILY [facility] Methotrexate (Methotrexate) 15 mg PO SAT [facility] PRN Reason: Protocol Metoprolol Succinate (Toprol Xl) 50 mg PO DAILY [facility] Mometasone Furoate (Asmanex Twisthaler 220 Mcg) 1 puff IH DAILY [facility] Last Admin: 08/09/16 15:07 Dose: 1 puff Multivitamins/Minerals (Therapeutic-M Tab) 1 tab PO DAILY [facility] Last Admin: 08/09/16 15:09 Dose: 1 tab Pantoprazole Sodium (Protonix Ec Tab) 40 mg PO DAILY [facility] Last Admin: 08/09/16 15:14 Dose: 40 mg Saccharomyces Boulardii (Florastor) 250 mg PO BID [facility] Tiotropium [place] (Spiriva) 18 mcg INH DAILY [facility] Last Admin: 08/09/16 15:09 Dose: 18 mcg Physical Exam - Constitutional Appears: Chronically Ill - Head Exam Head Exam: ATRAUMATIC - Eye Exam Eye Exam: EOMI, PERRL - ENT Exam Additional comments: BIPAP in place - Neck Exam Neck exam: Positive for: Full Rom - Respiratory Exam Additional comments: tachypneic decreased air entry b/l no wheezing - Cardiovascular Exam Cardiovascular Exam: RRR, +S1, +S2 - GI/Abdominal Exam GI & Abdominal Exam: Normal Bowel Sounds, Soft Additional comments: NT, ND - Extremities Exam Additional comments: 2= pitting edema b/l LE along with venous stais dermatitis changes and discoloration and cold toes b/l - Neurological Exam Neurological exam: Alert, Oriented x3 Results - Vital Signs Recent Vital Signs: Last Vital Signs Temp 98.0 F 08/09/16 16:40 Pulse 72 08/09/16 16:40 Resp 20 08/09/16 16:40 BP 145/33 L 08/09/16 16:40 Pulse Ox 99 08/09/16 16:40 - Labs Result Diagrams: 08/09/16 11:02 08/09/16 11:02 Labs: Laboratory Results - last 24 hr 08/09/16 16:25 pCO2 111 H* pO2 30 L* HCO3 29.5 H ABG pH 7.17 L* ABG Total CO2 43.9 H ABG O2 Saturation 52.2 L ABG O2 Content 9.8 L ABG Base Excess 7.5 H ABG Hemoglobin 13.9 ABG Carboxyhemoglobin 2.3 H POC ABG HHb (Measured) 45.9 H ABG Methemoglobin 1.7 ABG O2 Capacity 18.8 Jorge Luis Test Yes A-a O2 Difference 45.0 Hgb O2 Saturation 50.1 L Liter Flow 35 Vent Mode Hfnc FiO2 30.0 Crit Value Called To Dr jimbo awan Crit Value Called By Rt Crit Value Read Back Y Blood Gas Notified Time 1631 Laboratory Results - last 72 hr 08/09/16 08/09/16 08/09/16 10:57 11:02 11:02 WBC 9.2 RBC 3.86 Hgb 13.0 Hct 39.7 MCV 102.8 H D MCH 33.5 H MCHC 32.6 L RDW 16.3 H Plt Count 207 MPV 8.8 Neut % (Auto) 87.3 H Lymph % (Auto) 5.0 L [place] % (Auto) 6.5 Eos % (Auto) 0.7 Baso % (Auto) 0.5 Neut # 8.1 H Lymph # 0.5 L [place] # 0.6 Eos # 0.1 Baso # 0.0 Neutrophils % (Manual) 87 H Lymphocytes % (Manual) 5 L Monocytes % (Manual) 5 Eosinophils % (Manual) 2 Basophils % (Manual) 1 Platelet Estimate Normal Anisocytosis (manual) Slight Macrocytosis (manual) Slight pCO2 76 H* pO2 19 L* HCO3 34.6 H ABG pH 7.37 ABG Total CO2 46.2 H ABG O2 Saturation 51.1 L ABG O2 Content ABG Base Excess 14.8 H ABG Hemoglobin ABG Carboxyhemoglobin POC ABG HHb (Measured) ABG Methemoglobin ABG O2 Capacity Jorge Luis Test Yes ABG Potassium 3.4 L A-a O2 Difference Hgb O2 Saturation Sodium 134.0 137 Chloride 93.0 L 90 L Glucose 126 H Lactate 0.8 Liter Flow Vent Mode FiO2 28.0 Crit Value Called To Crit Value Called By Crit Value Read Back Blood Gas Notified Time Potassium 3.8 Carbon Dioxide 40 H* Anion Gap 11 BUN 14 Creatinine 0.7 Est GFR ( Amer) > 60 Est GFR (Non-Af Amer) > 60 Random Glucose 125 H Calcium 9.8 Total Bilirubin 0.7 AST 34 ALT 29 Alkaline Phosphatase 102 Total Protein 7.8 Albumin 4.1 Globulin 3.7 Albumin/Globulin Ratio 1.1 Arterial Blood Potassium 3.4 L 08/09/16 16:25 WBC RBC Hgb Hct MCV MCH MCHC RDW Plt Count MPV Neut % (Auto) Lymph % (Auto) [place] % (Auto) Eos % (Auto) Baso % (Auto) Neut # Lymph # [place] # Eos # Baso # Neutrophils % (Manual) Lymphocytes % (Manual) Monocytes % (Manual) Eosinophils % (Manual) Basophils % (Manual) Platelet Estimate Anisocytosis (manual) Macrocytosis (manual) pCO2 111 H* pO2 30 L* HCO3 29.5 H ABG pH 7.17 L* ABG Total CO2 43.9 H ABG O2 Saturation 52.2 L ABG O2 Content 9.8 L ABG Base Excess 7.5 H ABG Hemoglobin 13.9 ABG Carboxyhemoglobin 2.3 H POC ABG HHb (Measured) 45.9 H ABG Methemoglobin 1.7 ABG O2 Capacity 18.8 Jorge Luis Test Yes ABG Potassium A-a O2 Difference 45.0 Hgb O2 Saturation 50.1 L Sodium Chloride Glucose Lactate Liter Flow 35 Vent Mode Hfnc FiO2 30.0 Crit Value Called To Dr jimbo awan Crit Value Called By Rt Crit Value Read Back Y Blood Gas Notified Time 1631 Potassium Carbon Dioxide Anion Gap BUN Creatinine Est GFR ( Amer) Est GFR (Non-Af Amer) Random Glucose Calcium Total Bilirubin AST ALT Alkaline Phosphatase Total Protein Albumin Globulin Albumin/Globulin Ratio Arterial Blood Potassium Accession No. : [id number] Patient Name / ID : SAROJ PRAKASH / [id number] Exam Date : 08/09/2016 10:25:25 ( Approved ) Study Comment : Sex / Age : F / [id number] Creator : Je Vicente MD Dictator : Je Vicente MD Extension Course Counselor : Wax Machine Operator : Je Vicente MD Approver2 : Report Date : 08/09/2016 13:05:23 My Comment : HISTORY: Cough. COMPARISON: 06/16/2015 and 04/25/2016. FINDINGS: LUNGS: New right lower lobe infiltrate. New left upper lobe infiltrate. PLEURA: No significant pleural effusion identified, no pneumothorax apparent. CARDIOVASCULAR: Normal. OSSEOUS STRUCTURES: No significant abnormalities. VISUALIZED UPPER ABDOMEN: Normal. OTHER FINDINGS: None. IMPRESSION: Bilateral infiltrates, these represent new findings compared to prior studies. Follow-up to resolution advised. Assessment & Plan (1) Acute on chronic respiratory failure with hypoxia and hypercapnia Status: Acute Priority: High (2) Bilateral pneumonia Status: Acute (3) History of CHF (congestive heart failure) Status: Chronic (4) Rheumatoid arthritis Status: Chronic Priority: High (5) Leg edema Status: Chronic Priority: Medium - Assessment and Plan (Free Text) Assessment: A/P- 66 year old female with RA on immunosuppressive meds, COPD, CHF, A.fib , venous stais presents with acute on chronic copd exacerbation with hypercapnea and b/l pneumonia. currently pt. is afebrile and has normal wbc count. b/l infiltrates on cxr. on BIPAP and tachypneic with poor resp sounds. venous staisis with dark cold toes b/l. 1. COPD exacerbation with hypercapnea 2.CHF 3.b/l LE venous stasis 4.RA plan- advise to place empirically on broad spectrum antibiotics for copd exacerbation and b/l pneumonia specially since pt. is also on immuno suppressive meds for her RA. check sputum cx. check blood cx x 2. advise to start pt. on IV zosyn for broad spectrum gram neg coverage. advise to also place pt. on Iv zithromax to cover for atypicals. check for mycoplasma serology and r/o legionella with urine legionella AG as well. respiratory close monitoring by ICU and pulmonary . All above d/w patient and her who is at bedside. Thank you for allowing me to take part in the care of this patient. All above also d/w Skills Auditor . ICU time 60 minutes.
[2016-08-09] MEDS: Saccharomyces Boulardi 250 mg Cap PO SCH (17:59)
[2016-08-09] MEDS: methylPREDNISolone 60 MG in Sodium Chloride 0.9% 50 ML IVPB SCH ×2 (17:59→22:27)
--- NOTE | 2016-08-09 18:16 | CP.CCUPN ---
CCU Subjective - Physician Review Subjective (Free Text): SYSTEMS ENGINEERING MANAGER PROGRESS NOTE Patient examined, interim events reviewed, discussed with PMD and Pulm: 66F, PMH COPD, RA, PVD, morbid obesity; admitted today with COPD exacerbation, cough with productive yellow sputum, admitted to telemetry unit, found to remain severely dyspneic despite multiple Duoneb treatments and IV steroids; at times unable to converse at all, appears cyanotic with SPO2 84-86% on nasal cannula oxygen. She has been in ICU previously on MV support for hypercapneic resp failure. ABG revealed severe hypercarbia, now transferred to ICU for BiPAP sup[port and close observation for need of MV support if she fails BiPAP. states she has had a productive cough in which phlegm converted to yellow today, no fevers, chills, diaphoresis, hemoptysis, chest discomfort reported. Afebrile, BP 150/70. 92 A Fib, 28, SPo2 (4% on 60% via BiPAP. ROS: as above, no other pertinent s/sx on 10+ system review. Allergies: Iodine, Shellfish, strawberry Home Meds: Diamox, ProAir, ASA, Vit D3, Flonase, Folic acid, Lasix, Neurontin , Plaquenil, MTX, Zyrtec, Medrol, Toprol XL, Omeprzaole, Spiriva. Other PSFMH: as above, HTN, CHF, Hyperlipidemia, arrhythmias with MAT and PSVT with paroxysmal A Fib: all nursing and historical notes reviewed, no new pertinent data relevant to current problems. No other distress noted: EXAM- HEENT: no icterus, Pupils equal and reactive. NECK: no visible JVD, supple, carotids equal upstroke bilat/no bruits CHEST: decreased BS at the bases, no wheezes, otherwise clear bilat HEART: regular, distant, S1S2, no murmur audible, no rubs. ABD: soft, no increased distention, no focal tenderness, no HSM. BS hypoactive , EXT: bilat L worse than R leg edema, chronic leg edematous and erythematous skin changes, all toes cool and cyanotic distally, distal pulses not palpable ( PT, DP). NEURO: no gross focal motor deficits SKIN: no rashes LABS: WBC= 9.2 HGB= 13.0 PLTs= 207K 7.17/111/30 50% Satn Na= 137 K= 3.8 HCO3= 40 BUN/Cr= 14/0.7 BS= 125 CXR: ( my interp) Bilateral hilar Left worse than R interstitial changes, basilar haziness. EKG: A Fib 82/min, non-specific ST -T changes. MAJOR PROBLEMS NOW: 1. Acute Hypercapneic and Hypoxemic resp failure 2 COPD exacerbation and Pneumonia 2. CHF with diastolic dysfx. 3. Peripheral arterial disease 4. Paroxysmal Atrial Fib with controlled VR 5. r/o LE DVT PLAN: 1. BiPAP support, follow serial ABGS (or SPo2 and ETCO2). 2. Empiric Abx coverage as Per ID. 3. Continued steroids, duonebs, Diamox. 4. Arterial and venous Doppler studies of the legs. 5. [place] MV support if BiPAP fails ( increasing hypercarbia / hypoxemia or lethargy). Clarify any Advance Directives.
[2016-08-09 19:20] LABS: ABG ALLEN TEST YES; ARTERIAL BLOOD GAS HCO3 31.3 mmol/L (21-28); ARTERIAL BLOOD GAS MODE BiPAP; ARTERIAL BLOOD GAS O2 CAPACITY 17.4 mL/dL (16-24); ARTERIAL BLOOD GAS O2 CONTENT 17.1 ML/dL (15-23); ARTERIAL BLOOD GAS PH 7.15 (7.35-7.45); ARTERIAL BLOOD GAS PO2 96 mm/Hg (80-100); ARTERIAL BLOOD HGB O2 SAT 93.9 % (95.0-98.0); CARBOXYHEMOGLOBIN 2.9 % (0.5-1.5); HHB 1.6 % (0.0-5.0); METHEMOGLOBIN 1.6 % (0.0-3.0)
[2016-08-09] MEDS: Piperacillin/Tazobact 3.375 GM in Sodium Chloride 0.9% 100 ML IVPB SCH (20:00)
[2016-08-09 20:18] LABS: ABG ALLEN TEST YES; ARTERIAL BLOOD GAS HCO3 32.3 mmol/L (21-28); ARTERIAL BLOOD GAS MODE BiPAP; ARTERIAL BLOOD GAS O2 CAPACITY 17.4 mL/dL (16-24); ARTERIAL BLOOD GAS O2 CONTENT 16.8 ML/dL (15-23); ARTERIAL BLOOD GAS PH 7.22 (7.35-7.45); ARTERIAL BLOOD GAS PO2 75 mm/Hg (80-100); ARTERIAL BLOOD HGB O2 SAT 91.9 % (95.0-98.0); CARBOXYHEMOGLOBIN 3.1 % (0.5-1.5); HHB 3.2 % (0.0-5.0); METHEMOGLOBIN 1.8 % (0.0-3.0)
[2016-08-10] MEDS: Levalbuterol 1.25 MG/3 ML Inhal Soln UD INH SCH ×4 (00:47→19:29)
[2016-08-10 05:04] LABS: ABG ALLEN TEST YES; ABG MECHANICAL RATE 16; ARTERIAL BLOOD GAS HCO3 34.9 mmol/L (21-28); ARTERIAL BLOOD GAS MODE BiPAP; ARTERIAL BLOOD GAS O2 CAPACITY 17.7 mL/dL (16-24); ARTERIAL BLOOD GAS O2 CONTENT 17.3 ML/dL (15-23); ARTERIAL BLOOD GAS PO2 78 mm/Hg (80-100); ARTERIAL BLOOD HGB O2 SAT 92.9 % (95.0-98.0); HHB 2.2 % (0.0-5.0); METHEMOGLOBIN 1.8 % (0.0-3.0)
[2016-08-10 05:31] LABS: BLOOD UREA NITROGEN 15 mg/dl (7-17); CALCIUM 9.2 mg/dL (8.4-10.2); CHLORIDE 90 mmol/L (98-107); CHOLESTEROL 159 mg/dL (0-199); GFR AFRICAN-AMERICAN > 60; GLUCOSE,RANDOM 133 mg/dL (65-105); PHOSPHOROUS 4.6 mg/dl (2.5-4.5); POTASSIUM 4.5 MMOL/L (3.6-5.0); SODIUM 140 mmol/l (132-148)
[2016-08-10 05:47] LABS: CARBON DIOXIDE 41 mmol/L (22-30)
[2016-08-10 05:50] LABS: T4 6.34 ug/dl (5.5-11.0)
[2016-08-10 06:03] LABS: THYROID STIMULATING HORMONE 0.63 mIU/ML (0.46-4.68)
[2016-08-10 06:12] LABS: BASO % 0.2 % (0.0-2.0); EOS % 0.4 % (0.0-4.0); HEMATOCRIT 39.7 % (34.0-47.0); LYMPH # 0.2 K/uL (1.0-4.3); LYMPH % 2.9 % (20.0-40.0); MEAN CELL VOLUME 103.4 fl (81.0-99.0); MEAN CORPUSCULAR HEMOGLOBIN 33.6 pg (27.0-31.0); MEAN CORPUSCULAR HGB CONC 32.5 g/dL (33.0-37.0); MEAN PLATELET VOLUME 9.1 fl (7.2-11.7); MONO # 0.1 K/uL (0.0-0.8); MONO % 1.9 % (0.0-10.0); NEUT # 7.1 K/uL (1.8-7.0); NEUT % 94.6 % (50.0-75.0); NRBC % 0.1 % (0.0-0.0); PLATELET COUNT 197 K/uL (130-400); RED CELL DISTRIBUTION WIDTH 16.9 % (11.5-14.5); WHITE BLOOD COUNT 7.5 K/uL (4.8-10.8)
[2016-08-10] MEDS: Piperacillin/Tazobact 3.375 GM in Sodium Chloride 0.9% 100 ML IVPB SCH ×3 (06:15→16:00)
[2016-08-10] MEDS: methylPREDNISolone 60 MG in Sodium Chloride 0.9% 50 ML IVPB SCH ×2 (06:18→09:53)
--- NOTE | 2016-08-10 08:16 | PQF CHF ---
This form is a permanent part of the medical record 08/09/16 Dr. White, Would you please further clarify the TYPE of CHF. I am unable to code the type of CHF off the Echo report. Documentation that the patient has a history of CHF ( Please see last echo report of 04/24/16) Medications include: Lasix, metoprolol XL, acetazolamide . Clarification of your documentation is requested to better reflect the severity of illness and intensity of treatment of your patient. Indicators present [x] Diagnosis of CHF and/or history of CHF [] BNP > 200 [] Imaging Finding of Pulmonary Edema /Pleural Effusions [] Fluid/Volume Overload [] Pitting edema [] Ejection Fraction < 40% (Indicative of Systolic Heart Failure) [] Ejection Fraction > 40% (Indicative of Diastolic Heart Failure) [] Dyspnea / Orthopenea / Paroxysmal Nocturnal Dyspnea [] Other: Location in the medical record that reflects the above clinical findings: [] Treatment Provided: [] PHYSICIAN'S RESPONSE Based on your medical judgment of the clinical indicators outlined above, are you treating this patient for a known or suspected: [] Acute CHF [] Systolic [] Diastolic [] Combined [] Chronic CHF [] Systolic [] Diastolic [] Combined [] Acute on Chronic CHF []Systolic [] Diastolic [] Combined [] CHF due hypertension [] Acute systolic []Chronic systolic [] Acute/ chronic systolic [] Other, please indicate: [] [] If Unable to Determine, please check the box, sign and date. Present On Admission (POA) Indicator: [] Present at the time of admission [] Not present at the time of admission [] Clinically Undetermined In responding to this query, please exercise your independent professional judgment. The fact that a question is asked does not imply that any particular answer is desired or expected. Thank you for your clarification on this documentation. If you have any questions please call:[phone] Medical Records Dept. * Thank you, Erin Álvarez RN [facility]
--- NOTE | 2016-08-10 08:31 | CP.PCM.PN ---
Subjective - Date & Time of Evaluation Date of Evaluation: 08/10/16 Time of Evaluation: 08:26 - Subjective Subjective: Vascular surgery - Dr Valdez Pt S&E in ICU. Pt has been on Bipap overnight. This morning she is feeling much better from a respiratory standpoint. She denies any pain in the legs. R foot is warm and pink much improved from yesterday, Left toes still with some bluish discoloration. Objective - Vital Signs/Intake and Output Vital Signs (last 24 hours): Temp Pulse Resp BP Pulse Ox 98.6 F 77 15 139/105 H 95 08/10/16 04:00 08/10/16 06:00 08/10/16 06:00 08/10/16 06:00 08/10/16 06:00 Intake and Output: 08/10/16 08/10/16 06:59 18:59 Intake Total 150 150 Balance 150 150 - Medications Medications: Current Medications Acetazolamide (Diamox Sequels 500 Mg Sr Cap) 500 mg PO DAILY [facility] Aspirin (Aspirin Chewable) 81 mg PO DAILY [facility] Last Admin: 08/09/16 15:14 Dose: 81 mg Atorvastatin Calcium (Lipitor) 10 mg PO HS [facility] Last Admin: 08/09/16 22:25 Dose: Not Given Cholecalciferol (Vitamin D) 2,000 iu PO DAILY [facility] Enoxaparin Sodium (Lovenox) 40 mg SC DAILY [facility] PRN Reason: Protocol Last Admin: 08/09/16 15:08 Dose: 40 mg Fluticasone Propionate (Flonase) 2 spr KEVIN DAILY [facility] Folic Acid (Folic Acid) 2 mg PO BID [facility] Last Admin: 08/09/16 17:59 Dose: 2 mg Furosemide (Lasix) 40 mg PO BID [facility] Last Admin: 08/09/16 17:57 Dose: 40 mg Gabapentin (Neurontin) 100 mg PO DAILY [facility] Gabapentin (Neurontin) 300 mg PO HS [facility] Last Admin: 08/09/16 22:25 Dose: Not Given Hydroxychloroquine Sulfate (Plaquenil) 400 mg PO DAILY [facility] Azithromycin 500 mg/ Sodium (Chloride) 250 mls @ 250 mls/hr IVPB DAILY [facility] Ceftriaxone Sodium 1 gm/ (Sodium Chloride) 100 mls @ 100 mls/hr IVPB Q24H [facility] Last Admin: 08/09/16 16:22 Dose: Not Given Methylprednisolone 60 mg/ (Sodium Chloride) 50 mls @ 100 mls/hr IVPB Q6 [facility] Last Admin: 08/10/16 06:18 Dose: 100 mls/hr Piperacillin Sod/Tazobactam (Sod 3.375 gm/ Sodium Chloride) 100 mls @ 100 mls/ hr IVPB Q8 [facility] Last Admin: 08/10/16 06:15 Dose: 100 mls/hr Levalbuterol HCl (Xopenex) 1.25 mg INH RQ8 [facility] Last Admin: 08/10/16 07:24 Dose: 1.25 mg Loratadine (Claritin) 10 mg PO DAILY [facility] Methotrexate (Methotrexate) 15 mg PO SAT [facility] PRN Reason: Protocol Metoprolol Succinate (Toprol Xl) 50 mg PO DAILY [facility] Mometasone Furoate (Asmanex Twisthaler 220 Mcg) 1 puff IH DAILY [facility] Last Admin: 08/09/16 15:07 Dose: 1 puff Multivitamins/Minerals (Therapeutic-M Tab) 1 tab PO DAILY [facility] Last Admin: 08/09/16 15:09 Dose: 1 tab Pantoprazole Sodium (Protonix Ec Tab) 40 mg PO DAILY [facility] Last Admin: 08/09/16 15:14 Dose: 40 mg Saccharomyces Boulardii (Florastor) 250 mg PO BID [facility] Last Admin: 08/09/16 17:59 Dose: 250 mg Tiotropium [place] (Spiriva) 18 mcg INH DAILY [facility] Last Admin: 08/09/16 15:09 Dose: 18 mcg - Labs Labs: 08/10/16 05:00 08/10/16 05:00 - Constitutional Appears: No Acute Distress - Head Exam Head Exam: ATRAUMATIC, NORMAL INSPECTION, NORMOCEPHALIC - Eye Exam Eye Exam: Normal appearance - Respiratory Exam Respiratory Exam: absent: Respiratory Distress Additional comments: on bipap, o2 sat >95 - Cardiovascular Exam Cardiovascular Exam: REGULAR RHYTHM - Extremities Exam Extremities Exam: Pedal Edema (b/l). absent: Tenderness Additional comments: R foot pink and warm w/ faint pulses L foot still with slight bluish discoloratoin peripherally, faint pulses - Neurological Exam Neurological Exam: Alert, Oriented x3 - Psychiatric Exam Psychiatric exam: Normal Affect, Normal Mood - Skin Skin Exam: Dry, Intact Assessment and Plan - Assessment and Plan (Free Text) Assessment: 66 yo F admitted w/ COPD exacerbation, vascular surgery consulted for venous insufficiency -Continue resp. care as per Pulm/ICU team -F/u arterial and venous duplex le -Leg elevation -No surgical intervention planned Dw Dr Courtney Vega PGY2
[2016-08-10 08:52] LABS: EOSINOPHIL 2 % (0-7); NEUTROPHIL 90 % (42-75); TOTAL CELLS COUNTED 100
[2016-08-10] MEDS: Pantoprazole 40 mg EC Tab PO SCH (08:57)
[2016-08-10] MEDS: Mometasone 220 mcg/puff-14 puff Inh IH SCH (08:57)
[2016-08-10] MEDS: Enoxaparin 40 mg Syringe SC SCH (08:58)
[2016-08-10] MEDS: Multivitamin With Minerals Tab PO SCH (08:58)
[2016-08-10] MEDS: Saccharomyces Boulardi 250 mg Cap PO SCH ×2 (08:58→16:59)
[2016-08-10] MEDS: acetaZOLAMIDE 500 mg SR Cap PO SCH (09:00)
[2016-08-10] MEDS: Tiotropium 18 mcg Cap For Inhalation INH SCH (09:02)
--- NOTE | 2016-08-10 09:22 | CP.PCM.PN ---
Subjective - Date & Time of Evaluation Date of Evaluation: 08/10/16 Time of Evaluation: 09:20 - Subjective Subjective: Overnight events reviewed. EMR entries reviewed as well. Has been on BiPAP mask NIPPV with rate 16, iPAP 16, ePAP 6, O2 reduced to 40%. Last ABG around 4AM showed pH 7.30, pCO2 88, pO2 78, HCO3 34.9 and tCO2 46. AM CXR still shows patchy infiltrates in RLL and STEPHEN. Heart rate in 60's appears to be in NSR with episodes of a fib. She is still very somnolent, awakens to verbal or tactile stimuli, but falls back asleep quickly. Able to follow simple commands, appears to have asterixis. LE edema still present with less cyanotic toes. No dullness on percussion of the anterior chest, no subcut emphysema. Breath sounds are present bilaterally, very diminished w/o audible wheezing. Medium rales with rhonchi present in both lower lobes posteriorly. Will need followup ABG this AM. Solumedrol decreased to 40MG Q6H. Aerosol therapy changed to Levalbuterol 1.25 with ipratropium 2.5 via neb q6h. Continue present setting on BiPAP for the present time. If stable may trial periods on High Flow nasal O2. Needs CT chest when stable. Objective - Vital Signs/Intake and Output Vital Signs (last 24 hours): Temp Pulse Resp BP Pulse Ox 98.6 F 75 15 101/75 95 08/10/16 04:00 08/10/16 07:24 08/10/16 06:00 08/10/16 08:59 08/10/16 06:00 Intake and Output: 08/09/16 08/10/16 23:59 11:59 Intake Total 50 300 Balance 50 300 - Medications Medications: Current Medications Acetazolamide (Diamox Sequels 500 Mg Sr Cap) 500 mg PO DAILY [facility] Last Admin: 08/10/16 09:00 Dose: 500 mg Aspirin (Aspirin Chewable) 81 mg PO DAILY [facility] Last Admin: 08/10/16 08:58 Dose: 81 mg Atorvastatin Calcium (Lipitor) 10 mg PO HS [facility] Last Admin: 08/09/16 22:25 Dose: Not Given Cholecalciferol (Vitamin D) 2,000 iu PO DAILY [facility] Last Admin: 08/10/16 09:10 Dose: 2,000 iu Enoxaparin Sodium (Lovenox) 40 mg SC DAILY [facility] PRN Reason: Protocol Last Admin: 08/10/16 08:58 Dose: 40 mg Fluticasone Propionate (Flonase) 2 spr KEVIN DAILY [facility] Last Admin: 08/10/16 09:00 Dose: 2 spr Folic Acid (Folic Acid) 2 mg PO BID [facility] Last Admin: 08/10/16 08:57 Dose: 2 mg Furosemide (Lasix) 40 mg PO BID [facility] Last Admin: 08/10/16 08:59 Dose: 40 mg Gabapentin (Neurontin) 100 mg PO DAILY [facility] Last Admin: 08/10/16 09:01 Dose: 100 mg Gabapentin (Neurontin) 300 mg PO HS [facility] Last Admin: 08/09/16 22:25 Dose: Not Given Hydroxychloroquine Sulfate (Plaquenil) 400 mg PO DAILY [facility] Last Admin: 08/10/16 09:01 Dose: 400 mg Azithromycin 500 mg/ Sodium (Chloride) 250 mls @ 250 mls/hr IVPB DAILY [facility] Ceftriaxone Sodium 1 gm/ (Sodium Chloride) 100 mls @ 100 mls/hr IVPB Q24H [facility] Last Admin: 08/09/16 16:22 Dose: Not Given Methylprednisolone 60 mg/ (Sodium Chloride) 50 mls @ 100 mls/hr IVPB Q6 [facility] Stop: 08/10/16 11:00 Last Admin: 08/10/16 06:18 Dose: 100 mls/hr Piperacillin Sod/Tazobactam (Sod 3.375 gm/ Sodium Chloride) 100 mls @ 100 mls/ hr IVPB Q8 [facility] Last Admin: 08/10/16 06:15 Dose: 100 mls/hr Methylprednisolone 40 mg/ (Sodium Chloride) 50.64 mls @ 100 mls/hr IVPB Q6 [facility] Ipratropium [place] (Atrovent) 0.5 mg IH RQ8 [facility] Levalbuterol HCl (Xopenex) 1.25 mg INH RQ8 [facility] Last Admin: 08/10/16 07:24 Dose: 1.25 mg Methotrexate (Methotrexate) 15 mg PO SAT [facility] PRN Reason: Protocol Metoprolol Succinate (Toprol Xl) 50 mg PO DAILY [facility] Mometasone Furoate (Asmanex Twisthaler 220 Mcg) 1 puff IH DAILY [facility] Last Admin: 08/10/16 08:57 Dose: 1 puff Multivitamins/Minerals (Therapeutic-M Tab) 1 tab PO DAILY [facility] Last Admin: 08/10/16 08:58 Dose: 1 tab Pantoprazole Sodium (Protonix Ec Tab) 40 mg PO DAILY [facility] Last Admin: 08/10/16 08:57 Dose: 40 mg Saccharomyces Boulardii (Florastor) 250 mg PO BID [facility] Last Admin: 08/10/16 08:58 Dose: 250 mg - Labs Labs: 08/10/16 05:00 08/10/16 05:00 Assessment and Plan (1) Acute on chronic respiratory failure with hypoxia and hypercapnia Status: Acute (2) COPD (chronic obstructive pulmonary disease) Status: Chronic (3) Atrial fibrillation Status: Acute (4) Leg edema Status: Chronic (5) Rheumatoid arthritis Status: Chronic (6) Pulmonary hypertension Status: Chronic
--- NOTE | 2016-08-10 09:36 | CP.PCM.PN ---
Subjective - Date & Time of Evaluation Date of Evaluation: 08/10/16 Time of Evaluation: 09:30 - Subjective Subjective: Pt remains on Bipap Somnolent but is arousable No fever denies CP Short of breath but states she feels better than yesterday denies abd pain Discussed with pt test results and tx plan and poss of Intubation is her condition worsens Full Code Surrogate Decision maker - spouse Macario Objective - Vital Signs/Intake and Output Vital Signs (last 24 hours): Temp Pulse Resp BP Pulse Ox 98.6 F 75 15 101/75 95 08/10/16 04:00 08/10/16 07:24 08/10/16 06:00 08/10/16 08:59 08/10/16 06:00 Intake and Output: 08/10/16 08/10/16 06:59 18:59 Intake Total 150 150 Balance 150 150 - Medications Medications: Current Medications Acetazolamide (Diamox Sequels 500 Mg Sr Cap) 500 mg PO DAILY [facility] Last Admin: 08/10/16 09:00 Dose: 500 mg Aspirin (Aspirin Chewable) 81 mg PO DAILY [facility] Last Admin: 08/10/16 08:58 Dose: 81 mg Atorvastatin Calcium (Lipitor) 10 mg PO HS [facility] Last Admin: 08/09/16 22:25 Dose: Not Given Cholecalciferol (Vitamin D) 2,000 iu PO DAILY [facility] Last Admin: 08/10/16 09:10 Dose: 2,000 iu Enoxaparin Sodium (Lovenox) 40 mg SC DAILY [facility] PRN Reason: Protocol Last Admin: 08/10/16 08:58 Dose: 40 mg Fluticasone Propionate (Flonase) 2 spr KEVIN DAILY [facility] Last Admin: 08/10/16 09:00 Dose: 2 spr Folic Acid (Folic Acid) 2 mg PO BID [facility] Last Admin: 08/10/16 08:57 Dose: 2 mg Furosemide (Lasix) 40 mg PO BID [facility] Last Admin: 08/10/16 08:59 Dose: 40 mg Gabapentin (Neurontin) 100 mg PO DAILY [facility] Last Admin: 08/10/16 09:01 Dose: 100 mg Gabapentin (Neurontin) 300 mg PO HS [facility] Last Admin: 08/09/16 22:25 Dose: Not Given Hydroxychloroquine Sulfate (Plaquenil) 400 mg PO DAILY [facility] Last Admin: 06/09/17 09:01 Dose: 400 mg Azithromycin 500 mg/ Sodium (Chloride) 250 mls @ 250 mls/hr IVPB DAILY [facility] Ceftriaxone Sodium 1 gm/ (Sodium Chloride) 100 mls @ 100 mls/hr IVPB Q24H [facility] Last Admin: 08/09/16 16:22 Dose: Not Given Methylprednisolone 60 mg/ (Sodium Chloride) 50 mls @ 100 mls/hr IVPB Q6 [facility] Stop: 08/10/16 11:00 Last Admin: 08/10/16 06:18 Dose: 100 mls/hr Piperacillin Sod/Tazobactam (Sod 3.375 gm/ Sodium Chloride) 100 mls @ 100 mls/ hr IVPB Q8 [facility] Last Admin: 08/10/16 06:15 Dose: 100 mls/hr Methylprednisolone 40 mg/ (Sodium Chloride) 50.64 mls @ 100 mls/hr IVPB Q6 [facility] Ipratropium [place] (Atrovent) 0.5 mg IH RQ6 [facility] Levalbuterol HCl (Xopenex) 1.25 mg INH RQ8 [facility] Last Admin: 08/10/16 07:24 Dose: 1.25 mg Methotrexate (Methotrexate) 15 mg PO SAT [facility] PRN Reason: Protocol Metoprolol Succinate (Toprol Xl) 50 mg PO DAILY [facility] Mometasone Furoate (Asmanex Twisthaler 220 Mcg) 1 puff IH DAILY [facility] Last Admin: 08/10/16 08:57 Dose: 1 puff Multivitamins/Minerals (Therapeutic-M Tab) 1 tab PO DAILY [facility] Last Admin: 08/10/16 08:58 Dose: 1 tab Pantoprazole Sodium (Protonix Ec Tab) 40 mg PO DAILY [facility] Last Admin: 08/10/16 08:57 Dose: 40 mg Saccharomyces Boulardii (Florastor) 250 mg PO BID [facility] Last Admin: 08/10/16 08:58 Dose: 250 mg - Labs Labs: 08/10/16 05:00 08/10/16 05:00 - Constitutional Appears: In Acute Distress, Chronically Ill - Head Exam Head Exam: NORMAL INSPECTION, NORMOCEPHALIC - Eye Exam Eye Exam: EOMI, Normal appearance Pupil Exam: NORMAL ACCOMODATION - ENT Exam ENT Exam: Mucous Membranes Dry, Normal External Ear Exam - Neck Exam Neck Exam: Full ROM. absent: Meningismus - Respiratory Exam Respiratory Exam: Rales, Rhonchi, Respiratory Distress Additional comments: + Bipap - Cardiovascular Exam Cardiovascular Exam: REGULAR RHYTHM, +S1, +S2 - GI/Abdominal Exam GI & Abdominal Exam: Soft, Normal Bowel Sounds. absent: Tenderness - Extremities Exam Extremities Exam: Pedal Edema. absent: Calf Tenderness Additional comments: decrease peripheral pulses dusky toes - Back Exam Back Exam: Full ROM. absent: CVA tenderness (L), CVA tenderness (R) - Neurological Exam Neurological Exam: CN II-XII Intact, Oriented x3 Neuro motor strength exam: Left Upper Extremity: 5, Right Upper Extremity: 5, Left Lower Extremity: 5, Right Lower Extremity: 5 Additional comments: pt is somnolent however arousable with verbal stimuli - Psychiatric Exam Psychiatric exam: Flat Affect - Skin Skin Exam: Dry, Pallor Assessment and Plan - Assessment and Plan (Free Text) Assessment: 66 year old female (PMHx: COPD, CHF, HTN, HLD, RA, Chornic LE Edema, Atrial Fibrillation) presented to the ER via EMS with her with a chief complaint of SOB. Found to be in respiratory failure. Current;y in ICU on Bipap //40%. 1. Acute on Chronic Respiratory Failure with Hypoxia and Hypercapnea likely sec to COPD and PNA Pt is in the ICU - on NIPPV - Bipap remains somnolent but arousable ABG shows improvement in acidosis and hypercapnea however still with very high CO3 levels Pulm on consult - Dr Yusuf cont IV Solumedrol cont Xopenex neb tx cont IV abx (2) COPD exacerbation Consult Pulmonology Dr. Yusuf Solumedrol decreased to 40 mg IV Q6H Xopenex 1.25 mg nebulizer Q8H Asmanex 220 mcg puff INH 1x/day Spiriva 18 mcg 2 PO INH of 1 capsule via Handihaler Device 1x/day (3) Bilateral pneumonia Chest X Ray 08/09/16 shows new RLL and STEPHEN infiltrates Ceftriaxone 1 gm IV Q24H Azithromycin 500 mg IV Q24H ID consulted- Dr Cantor added IV Zosyn Rapid Influenza: neg Sputum c/s, Legionella Mycoplasm IgM : neg (4)Hx of Multifocal Atrial Tachycardia and episode of A Fib She states that she is being followed as an outpatient by Moisture Conditioner Operator Dr. Cole who has been consulted. ASA 81 mg PO 1x/day Metoprolol XL 50 mg PO 1x/day (4) Chronic CHF (congestive heart failure), Diastolic dysfunction/Pulm HTN Assessment and Plan: ECHO 04/20 : normal EF Metoprolol XL 50 mg PO 1x/day Patient is being followed by Dr. Cole as outpatient (5) HTN (hypertension) Metoprolol XL 50 mg PO 1x/day (6) Hyperlipidemia Atorvastatin 10 mg PO QHS (7) GERD (gastroesophageal reflux disease) Omeprazole 20 mg PO 1x/day (8) Rheumatoid arthritis with poss Interstitial Lung Disease Methotrexate 15 mg PO 1x/day on Saturday Folic Acid 2 mg PO 2x/day Plaquenil 400 mg PO 1x/day CT of chest once pt is more stable (9) Peripheral Vascular Dis/Venous Insufficiency Vascular Sx on consult Doppler studies LE (10) Prophylactic measure Lovenox 40 mg SC 1x/day for DVT Prophylaxis Omeprazole 20 mg PO 1x/day for GI Prophylaxis Florastor 250 mg PO 2x/day as patient has been placed on antibiotics for the Bilateral Lung Infiltrates MVI PO 1x/day Cholecalciferal 2,000 Units PO 1x/day
[2016-08-10] MEDS ORDERED: Ipratropium 0.02% Inhal Soln (0.5 mg/2.5 ml) UD IH STA (09:38)
[2016-08-10] MEDS: Metoprolol Succinate 50 mg XL Tab PO SCH (09:51)
--- NOTE | 2016-08-10 09:53 | CP.PCM.PN ---
Subjective - Date & Time of Evaluation Date of Evaluation: 08/10/16 Time of Evaluation: 11:30 - Subjective Subjective: ID Note- pt. seen and examined this am in ICU. pt. is still on BIPAP but is sitting up in bed and much more awake and alert and smiling and states she feels better and less sob. still has cough. Objective - Vital Signs/Intake and Output Vital Signs (last 24 hours): Temp Pulse Resp BP Pulse Ox 98.6 F 70 15 138/94 H 95 08/10/16 04:00 08/10/16 09:51 08/10/16 06:00 08/10/16 09:51 08/10/16 06:00 Intake and Output: 08/10/16 08/10/16 06:59 18:59 Intake Total 150 150 Balance 150 150 - Medications Medications: Current Medications Acetazolamide (Diamox Sequels 500 Mg Sr Cap) 500 mg PO DAILY [facility] Last Admin: 08/10/16 09:00 Dose: 500 mg Aspirin (Aspirin Chewable) 81 mg PO DAILY [facility] Last Admin: 08/10/16 08:58 Dose: 81 mg Atorvastatin Calcium (Lipitor) 10 mg PO [facility] Last Admin: 08/09/16 22:25 Dose: Not Given Cholecalciferol (Vitamin D) 2,000 iu PO DAILY [facility] Last Admin: 08/10/16 09:10 Dose: 2,000 iu Enoxaparin Sodium (Lovenox) 40 mg SC DAILY [facility] PRN Reason: Protocol Last Admin: 08/10/16 08:58 Dose: 40 mg Fluticasone Propionate (Flonase) 2 spr KEVIN DAILY [facility] Last Admin: 08/10/16 09:00 Dose: 2 spr Folic Acid (Folic Acid) 2 mg PO BID [facility] Last Admin: 08/10/16 08:57 Dose: 2 mg Furosemide (Lasix) 40 mg PO BID [facility] Last Admin: 08/10/16 08:59 Dose: 40 mg Gabapentin (Neurontin) 100 mg PO DAILY [facility] Last Admin: 08/10/16 09:01 Dose: 100 mg Gabapentin (Neurontin) 300 mg PO HS [facility] Last Admin: 08/09/16 22:25 Dose: Not Given Hydroxychloroquine Sulfate (Plaquenil) 400 mg PO DAILY [facility] Last Admin: 08/10/16 09:01 Dose: 400 mg Azithromycin 500 mg/ Sodium (Chloride) 250 mls @ 250 mls/hr IVPB DAILY [facility] Ceftriaxone Sodium 1 gm/ (Sodium Chloride) 100 mls @ 100 mls/hr IVPB Q24H [facility] Last Admin: 08/09/16 16:22 Dose: Not Given Methylprednisolone 60 mg/ (Sodium Chloride) 50 mls @ 100 mls/hr IVPB Q6 [facility] Stop: 08/10/16 11:00 Last Admin: 08/10/16 06:18 Dose: 100 mls/hr Piperacillin Sod/Tazobactam (Sod 3.375 gm/ Sodium Chloride) 100 mls @ 100 mls/ hr IVPB Q8 [facility] Last Admin: 08/10/16 06:15 Dose: 100 mls/hr Methylprednisolone 40 mg/ (Sodium Chloride) 50.64 mls @ 100 mls/hr IVPB Q6 [facility] Ipratropium [place] (Atrovent) 0.5 mg IH RQ6 [facility] Levalbuterol HCl (Xopenex) 1.25 mg INH RQ6 [facility] Methotrexate (Methotrexate) 15 mg PO [facility] PRN Reason: Protocol Metoprolol Succinate (Toprol Xl) 50 mg PO DAILY [facility] Last Admin: 08/10/16 09:51 Dose: 50 mg Mometasone Furoate (Asmanex Twisthaler 220 Mcg) 1 puff IH DAILY [facility] Last Admin: 08/10/16 08:57 Dose: 1 puff Multivitamins/Minerals (Therapeutic-M Tab) 1 tab PO DAILY [facility] Last Admin: 08/10/16 08:58 Dose: 1 tab Pantoprazole Sodium (Protonix Ec Tab) 40 mg PO DAILY [facility] Last Admin: 08/10/16 08:57 Dose: 40 mg Saccharomyces Boulardii (Florastor) 250 mg PO BID [facility] Last Admin: 08/10/16 08:58 Dose: 250 mg - Labs Labs: - Additional Findings Additional findings: - Constitutional Appears: Chronically Ill - Head Exam Head Exam: ATRAUMATIC - Eye Exam Eye Exam: EOMI, PERRL - ENT Exam Additional comments: BIPAP in place - Neck Exam Neck exam: Positive for: Full Rom - Respiratory Exam Additional comments: less tachypneic decreased air entry b/l no wheezing - Cardiovascular Exam Cardiovascular Exam: RRR, +S1, +S2 - GI/Abdominal Exam GI & Abdominal Exam: Normal Bowel Sounds, Soft Additional comments: NT, ND - Extremities Exam Additional comments: 2+pitting edema b/l LE along with venous stasis dermatitis changes and discoloration and cold toes b/l - Neurological Exam Neurological exam: more Alert, Oriented x 3 Laboratory Results - last 72 hr 08/09/16 08/09/16 08/09/16 10:57 11:02 11:02 WBC 9.2 RBC 3.86 Hgb 13.0 Hct 39.7 MCV 102.8 H D MCH 33.5 H MCHC 32.6 L RDW 16.3 H Plt Count 207 MPV 8.8 Neut % (Auto) 87.3 H Lymph % (Auto) 5.0 L Hubbard % (Auto) 6.5 Eos % (Auto) 0.7 Baso % (Auto) 0.5 Neut # 8.1 H Lymph # 0.5 L Hubbard # 0.6 Eos # 0.1 Baso # 0.0 Neutrophils % (Manual) 87 H Lymphocytes % (Manual) 5 L Monocytes % (Manual) 5 Eosinophils % (Manual) 2 Basophils % (Manual) 1 Platelet Estimate Normal Anisocytosis (manual) Slight Macrocytosis (manual) Slight pCO2 76 H* pO2 19 L* HCO3 34.6 H ABG pH 7.37 ABG Total CO2 46.2 H ABG O2 Saturation 51.1 L ABG O2 Content ABG Base Excess 14.8 H ABG Hemoglobin ABG Carboxyhemoglobin POC ABG HHb (Measured) ABG Methemoglobin ABG O2 Capacity Jorge Luis Test Yes ABG Potassium 3.4 L A-a O2 Difference Hgb O2 Saturation Sodium 134.0 137 Chloride 93.0 L 90 L Glucose 126 H Lactate 0.8 Liter Flow Vent Mode Mechanical Rate FiO2 28.0 Inspiratory BiPAP Expiratory BiPAP Crit Value Called To Crit Value Called By Crit Value Read Back Blood Gas Notified Time Potassium 3.8 Carbon Dioxide 40 H* Anion Gap 11 BUN 14 Creatinine 0.7 Est GFR ( Amer) > 60 Est GFR (Non-Af Amer) > 60 Random Glucose 125 H Calcium 9.8 Phosphorus Magnesium Total Bilirubin 0.7 AST 34 ALT 29 Alkaline Phosphatase 102 Total Protein 7.8 Albumin 4.1 Globulin 3.7 Albumin/Globulin Ratio 1.1 Triglycerides Cholesterol LDL Cholesterol Direct HDL Cholesterol Thyroxine (T4) TSH 3rd Generation Arterial Blood Potassium 3.4 L Influenza Typ A,B (EIA) 0608/09/16 08/09/16 16:25 19:12 20:12 WBC RBC Hgb Hct MCV MCH MCHC RDW Plt Count MPV Neut % (Auto) Lymph % (Auto) Hubbard % (Auto) Eos % (Auto) Baso % (Auto) Neut # Lymph # Hubbard # Eos # Baso # Neutrophils % (Manual) Lymphocytes % (Manual) Monocytes % (Manual) Eosinophils % (Manual) Basophils % (Manual) Platelet Estimate Anisocytosis (manual) Macrocytosis (manual) pCO2 111 H* 119 H* 101 H* pO2 30 L* 96 75 L HCO3 29.5 H 31.3 H 32.3 H ABG pH 7.17 L* 7.15 L* 7.22 L ABG Total CO2 43.9 H 45.2 H 44.4 H ABG O2 Saturation 52.2 L 98.3 H 96.6 ABG O2 Content 9.8 L 17.1 16.8 ABG Base Excess 7.5 H 8.3 H 9.6 H ABG Hemoglobin 13.9 12.9 13.0 ABG Carboxyhemoglobin 2.3 H 2.9 H 3.1 H POC ABG HHb (Measured) 45.9 H 1.6 3.2 ABG Methemoglobin 1.7 1.6 1.8 ABG O2 Capacity 18.8 17.4 17.4 Jorge Luis Test Yes Yes Yes ABG Potassium A-a O2 Difference 45.0 183.0 155.0 Hgb O2 Saturation 50.1 L 93.9 L 91.9 L Sodium Chloride Glucose Lactate Liter Flow 35 Vent Mode Hfnc Bipap Bipap Mechanical Rate FiO2 30.0 60.0 50.0 Inspiratory BiPAP 12 14 Expiratory BiPAP 4 6 Crit Value Called To Dr jimbo plaza Crit Value Called By Rt Rt Rt Crit Value Read Back Y Y Y Blood Gas Notified Time [id number] Potassium Carbon Dioxide Anion Gap BUN Creatinine Est GFR ( Amer) Est GFR (Non-Af Amer) Random Glucose Calcium Phosphorus Magnesium Total Bilirubin AST ALT Alkaline Phosphatase Total Protein Albumin Globulin Albumin/Globulin Ratio Triglycerides Cholesterol LDL Cholesterol Direct HDL Cholesterol Thyroxine (T4) TSH 3rd Generation Arterial Blood Potassium Influenza Typ A,B (EIA) 08/09/16 08/10/16 08/10/16 23:48 04:45 05:00 WBC 7.5 RBC 3.84 Hgb 12.9 Hct 39.7 MCV 103.4 H MCH 33.6 H MCHC 32.5 L RDW 16.9 H Plt Count 197 MPV 9.1 Neut % (Auto) 94.6 H Lymph % (Auto) 2.9 L Hubbard % (Auto) 1.9 Eos % (Auto) 0.4 Baso % (Auto) 0.2 Neut # 7.1 H Lymph # 0.2 L Hubbard # 0.1 Eos # 0.0 Baso # 0.0 Neutrophils % (Manual) 90 H Lymphocytes % (Manual) 7 L Monocytes % (Manual) 1 Eosinophils % (Manual) 2 Basophils % (Manual) Platelet Estimate Normal Anisocytosis (manual) Slight Macrocytosis (manual) Slight pCO2 88 H* pO2 78 L HCO3 34.9 H ABG pH 7.30 L ABG Total CO2 46.0 H ABG O2 Saturation 97.7 ABG O2 Content 17.3 ABG Base Excess 12.9 H ABG Hemoglobin 13.2 ABG Carboxyhemoglobin 3.0 H POC ABG HHb (Measured) 2.2 ABG Methemoglobin 1.8 ABG O2 Capacity 17.7 Jorge Luis Test Yes ABG Potassium A-a O2 Difference 97.0 Hgb O2 Saturation 92.9 L Sodium Chloride Glucose Lactate Liter Flow Vent Mode Bipap Mechanical Rate 16 FiO2 40.0 Inspiratory BiPAP 16 Expiratory BiPAP 6 Crit Value Called To Juan Ramon barba Crit Value Called By Sb Crit Value Read Back Y Blood Gas Notified Time 503 Potassium Carbon Dioxide Anion Gap BUN Creatinine Est GFR ( Amer) Est GFR (Non-Af Amer) Random Glucose Calcium Phosphorus Magnesium Total Bilirubin AST ALT Alkaline Phosphatase Total Protein Albumin Globulin Albumin/Globulin Ratio Triglycerides Cholesterol LDL Cholesterol Direct HDL Cholesterol Thyroxine (T4) TSH 3rd Generation Arterial Blood Potassium Influenza Typ A,B (EIA) Negative for flu a/b 08/10/16 08/10/16 05:00 09:17 WBC RBC Hgb Hct MCV MCH MCHC RDW Plt Count MPV Neut % (Auto) Lymph % (Auto) Hubbard % (Auto) Eos % (Auto) Baso % (Auto) Neut # Lymph # Hubbard # Eos # Baso # Neutrophils % (Manual) Lymphocytes % (Manual) Monocytes % (Manual) Eosinophils % (Manual) Basophils % (Manual) Platelet Estimate Anisocytosis (manual) Macrocytosis (manual) pCO2 67 H pO2 77 L HCO3 37.3 H ABG pH 7.42 ABG Total CO2 45.6 H ABG O2 Saturation 98.2 H ABG O2 Content 16.1 ABG Base Excess 15.9 H ABG Hemoglobin 12.1 ABG Carboxyhemoglobin 2.6 H POC ABG HHb (Measured) 1.7 ABG Methemoglobin 1.8 ABG O2 Capacity 16.4 Jorge Luis Test Yes ABG Potassium A-a O2 Difference 124.0 Hgb O2 Saturation 94.0 L Sodium 140 Chloride 90 L Glucose Lactate Liter Flow Vent Mode Mechanical Rate 16 FiO2 40.0 Inspiratory BiPAP 16 Expiratory BiPAP 6 Crit Value Called To Crit Value Called By Crit Value Read Back Blood Gas Notified Time Potassium 4.5 Carbon Dioxide 41 H* Anion Gap 14 BUN 15 Creatinine 0.7 Est GFR ( Amer) > 60 Est GFR (Non-Af Amer) > 60 Random Glucose 133 H Calcium 9.2 Phosphorus 4.6 H Magnesium 2.0 Total Bilirubin AST ALT Alkaline Phosphatase Total Protein Albumin Globulin Albumin/Globulin Ratio Triglycerides 77 Cholesterol 159 LDL Cholesterol Direct 77 HDL Cholesterol 55 Thyroxine (T4) 6.34 TSH 3rd Generation 0.63 Arterial Blood Potassium Influenza Typ A,B (EIA) Microbiology 08/09/16 10:00 Blood-Venous Blood Culture - Preliminary NO GROWTH AFTER 24 HOURS Accession No. : [id number] Patient Name / ID : SAROJ PRAKASH / [id number] Exam Date : 08/10/2016 04:05:37 ( Approved ) Study Comment : Sex / Age : F / [id number] Creator : Eryn Nolan MD Dictator : Eryn Nolan MD Sales Service Executive : [employer] : Eryn Nolan MD Approver2 : Report Date : 08/10/2016 11:57:48 My Comment : HISTORY: f/u Pneumonitis,COPD COMPARISON: Chest x-ray performed 08/09/16 TECHNIQUE: Chest, one view. FINDINGS: Examination limited by habitus, patient motion, and obliquity. LUNGS: Bilateral lower lobe and left upper lobe infiltrates. Please note that chest x-ray has limited sensitivity for the detection of pulmonary masses. PLEURA: Probable small bilateral pleural effusions. No definite pneumothorax . CARDIOVASCULAR: Heart size appears top normal. Atherosclerotic calcifications of the aorta OSSEOUS STRUCTURES: Degenerative changes of the spine and shoulders. Acromioclavicular arthropathy. Chronic appearing right rib fractures. VISUALIZED UPPER ABDOMEN: Unremarkable. OTHER FINDINGS: None. IMPRESSION: Persistent bilateral lower and left upper lobe infiltrates. Probable small bilateral pleural effusions. Assessment and Plan (1) Acute on chronic respiratory failure with hypoxia and hypercapnia Status: Acute (2) Bilateral pneumonia Status: Acute (3) History of CHF (congestive heart failure) Status: Chronic (4) Rheumatoid arthritis Status: Chronic (5) Leg edema Status: Chronic - Assessment and Plan (Free Text) Assessment: A/P- 66 year old female with RA on immunosuppressive meds, COPD, CHF, A.fib , venous stais presents with acute on chronic copd exacerbation with hypercapnea and b/l pneumonia. currently pt. is afebrile and has normal wbc count. b/l infiltrates on cxr. on BIPAP but clinically better. venous staisis . blood cx- negative 1. COPD exacerbation with hypercapnea 2.CHF 3.b/l LE venous stasis 4.RA plan- advise to continue on IV zosyn for broad spectrum gram neg coverage. day #2. advise to also continue pt. on Iv zithromax to cover for atypicals. d/c ceftriaxone. check for mycoplasma serology and r/o legionella with urine legionella AG as well. await sputum cx. respiratory close monitoring by ICU and pulmonary . all above d/w patient and her at length. ICU time 45 min.
--- NOTE | 2016-08-10 12:03 | RAD ---
HISTORY: f/u Pneumonitis,COPD COMPARISON: Chest x-ray performed 08/09/16 TECHNIQUE: Chest, one view. FINDINGS: Examination limited by habitus, patient motion, and obliquity. LUNGS: Bilateral lower lobe and left upper lobe infiltrates. Please note that chest x-ray has limited sensitivity for the detection of pulmonary masses. PLEURA: Probable small bilateral pleural effusions. No definite pneumothorax . CARDIOVASCULAR: Heart size appears top normal. Atherosclerotic calcifications of the aorta OSSEOUS STRUCTURES: Degenerative changes of the spine and shoulders. Acromioclavicular arthropathy. Chronic appearing right rib fractures. VISUALIZED UPPER ABDOMEN: Unremarkable. OTHER FINDINGS: None. IMPRESSION: Persistent bilateral lower and left upper lobe infiltrates. Probable small bilateral pleural effusions.
[2016-08-10 12:06] VITALS: BMI 35.0
[2016-08-10] MEDS: Ipratropium 0.02% Inhal Soln (0.5 mg/2.5 ml) UD IH SCH ×2 (13:02→19:29)
[2016-08-10] MEDS: Azithromycin 500 MG in Sodium Chloride 0.9% 250 ML IVPB SCH (13:03)
[2016-08-10 13:41] LABS: ABG ALLEN TEST YES; ABG MECHANICAL RATE 16; ARTERIAL BLOOD GAS HCO3 37.3 mmol/L (21-28); ARTERIAL BLOOD GAS O2 CAPACITY 16.4 mL/dL (16-24); ARTERIAL BLOOD GAS O2 CONTENT 16.1 ML/dL (15-23); ARTERIAL BLOOD GAS PH 7.42 (7.35-7.45); ARTERIAL BLOOD GAS PO2 77 mm/Hg (80-100); CARBOXYHEMOGLOBIN 2.6 % (0.5-1.5); HHB 1.7 % (0.0-5.0); METHEMOGLOBIN 1.8 % (0.0-3.0)
--- NOTE | 2016-08-10 14:30 | CARD ---
APPROVED REPORT EKG Measurement Heart [id number] <Conclusion> Atrial fibrillation Nonspecific ST and T wave abnormality Abnormal ECG
--- NOTE | 2016-08-10 14:44 | PN ---
DATE: 08/10/2016 LOCATION: The patient in ICU, bed 433. TIME SPENT: 35 minutes. The patient is seen and examined at the bedside. Events since admission reviewed. Past medical, surgical, social history reviewed and unchanged. A 66-year-old female with a history of rheumatoid arthritis, chronic obstructive pulmonary disease, interstitial lung disease, morbid obesity, admitted with cough with productive yellow sputum secondary to exacerbation of chronic obstructive pulmonary disease, overnight on BiPAP 16/6 with FIO2 60%, remained somnolent, normotensive, afebrile. Telemetry, sinus rhythm. This morning, alert, awake, eyes open, able to follow commands appropriate, tried for a brief period on 2 L of nasal cannula, saturating at 98%. Denies fever, chills, cough. No headache, shortness of breath. Occasional dry cough. No abdominal discomfort, diarrhea or dysuria. Swelling of the lower extremities. PHYSICAL EXAMINATION: VITAL SIGNS: Temperature 99.3, heart rate 72, respiratory rate 18, blood pressure 109/56, oxygen saturation 96% on FiO2 of 40%. Intake 200, output 0. Weight 198 pounds. Intake and output not documented accurately. HEAD, EYES, EARS, NOSE AND THROAT: No icterus. Pupils are reactive. Conjunctivae are pink. NECK: Supple. No jugular venous distention or carotid bruit. CHEST: Bilateral breath sounds diminished in intensity. No audible wheeze. HEART: Rhythm regular, S1, S2 are distant, no audible murmur. ABDOMEN: Soft, bowel sounds present. Liver and spleen not palpable. Bladder not distended. EXTREMITIES: Bilateral left worse than right pedal edema. Chronic venous stasis changes. DP palpable, but reduced in intensity. NEUROLOGIC: Nonfocal. SKIN: Without rash. CURRENT MEDICATIONS: Include acetazolamide 500 mg p.o. daily, aspirin 81 mg p.o. daily, Lipitor 10 mg p.o. daily, ceftriaxone 1 gram IV daily, Zithromax 500 mg IV daily, vitamin D 2000 international units p.o. daily, Lovenox 40 subQ daily, fluticasone nasal spray 2 sprays daily, folic acid 2 mg p.o. twice daily , Lasix 40 mg p.o. b.i.d., Zosyn 3.375 grams b.i.d., Protonix 40 p.o. daily, multivitamin/mineral therapeutic 1 tablet daily, mometasone fumarate Asmanex 220 mcg 1 puff daily, metoprolol 50 mg p.o. daily, Solu-Medrol 40 mg IV q. 6, methotrexate 50 mg p.o. once a week, Xopenex 1.25 mg q. 6, Atrovent 0.5 mg inhalation q. 6, Plaquenil 400 mg p.o. daily, Neurontin 100 mg p.o. daily, Neurontin 300 mg p.o. at night, Lasix 40 p.o. b.i.d. IMPRESSION: 1. Hypercapnic hypoxic respiratory failure. 2. Chronic obstructive pulmonary disease exacerbation. 3. Interstitial lung disease. Repeat CT chest to assess the progression of the disease when the patient becomes more stable. 4. History of rheumatoid arthritis, on methotrexate 5. Peripheral vascular disease, paroxysmal atrial fibrillation with controlled rate, bilateral pneumonia, history of congestive heart failure., empirically on broad-spectrum antibiotics as per infectious disease consult. will continue Lovenox for deep venous thrombosis prophylaxis, Flonase, folic acid, Lasix, Neurontin, hydroxychloroquine and methotrexate. For interstitial lung disease, followup CT chest when stable. The patient is tolerating BiPAP currently, will closely monitor. Follow ABG. If fails, may need mechanical ventilation. Pedro Cifuentes MD cc: [id number] TT: 08/10/2016 14:43:48 Confirmation # [id number] Dictation # [id number]
[2016-08-10] MEDS: methylPREDNISolone 40 MG in Sodium Chloride 0.9% 50 ML IVPB SCH ×2 (15:59→21:06)
[2016-08-10] MEDS ORDERED: Ipratropium 0.02% Inhal Soln (0.5 mg/2.5 ml) UD IH SCH (16:00)
[2016-08-11] MEDS: Piperacillin/Tazobact 3.375 GM in Sodium Chloride 0.9% 100 ML IVPB SCH ×3 (00:15→16:30)
[2016-08-11] MEDS: Levalbuterol 1.25 MG/3 ML Inhal Soln UD INH SCH ×4 (01:08→19:13)
[2016-08-11] MEDS: Ipratropium 0.02% Inhal Soln (0.5 mg/2.5 ml) UD IH SCH ×4 (01:08→19:13)
[2016-08-11] MEDS: methylPREDNISolone 40 MG in Sodium Chloride 0.9% 50 ML IVPB SCH (03:25)
[2016-08-11 07:16] LABS: HEMATOCRIT 35.6 % (34.0-47.0); MEAN CELL VOLUME 103.4 fl (81.0-99.0); MEAN CORPUSCULAR HEMOGLOBIN 32.8 pg (27.0-31.0); MEAN CORPUSCULAR HGB CONC 31.8 g/dL (33.0-37.0); WHITE BLOOD COUNT 9.1 K/uL (4.8-10.8)
[2016-08-11 07:38] LABS: BLOOD UREA NITROGEN 19 mg/dl (7-17); CHLORIDE 92 mmol/L (98-107); GFR AFRICAN-AMERICAN > 60; GLUCOSE,RANDOM 124 mg/dL (65-105); POTASSIUM 3.7 MMOL/L (3.6-5.0); SODIUM 142 mmol/l (132-148)
[2016-08-11 07:55] LABS: CARBON DIOXIDE 44 mmol/L (22-30)
--- NOTE | 2016-08-11 08:09 | CP.CCUPN ---
CCU Subjective - Physician Review Events Since Last Encounter (Free Text): 08/11/16 08:02 Patient awake, on BIPAP 16/6 with O2 supplement 40%, no fever, no chest pain, follow commands, events reviewed CCU Objective - Vital Signs / Intake & Output Vital Signs (Last 4 hours): Vital Signs Temp Pulse Resp BP Pulse Ox 08/11/16 07:29 97.7 F 71 20 107/62 97 08/11/16 06:57 60 20 108/76 95 08/11/16 06:07 70 08/11/16 05:52 59 L 16 119/62 98 08/11/16 05:00 64 16 119/62 96 Intake and Output (Last 8hrs): Intake & Output 08/10/16 08/11/16 08/11/16 22:59 06:59 14:59 Intake Total 0 200 Output Total 700 Balance 0 -500 Intake: IV 0 Intake, Piggyback 200 Oral 0 0 Output: Urine 700 Urine, Voided 700 Other: # Voids Urine, Voided 2 - Physical Exam Head: Positive for: Atraumatic, Normocephalic Pupils: Positive for: PERRL Conjunctiva: Positive for: Normal Mouth: Positive for: Moist Mucous Membranes Nose (External): Positive for: Atraumatic Neck: Positive for: Normal Range of Motion Respiratory/Chest: Positive for: Rhonchi Cardiovascular: Positive for: Irregular Rhythm Abdomen: Positive for: Normal Bowel Sounds Upper Extremity: Positive for: Normal Inspection Lower Extremity: Positive for: Edema Skin: Positive for: Warm, Dry Psychiatric: Positive for: Alert - Medications Active Medications: Active Medications Generic Name Dose Route Start Last Admin Trade Name Jarochoq PRN Reason Stop Dose Admin Acetazolamide 500 mg 08/10/16 09:00 08/10/16 09:00 Diamox Sequels 500 Mg Sr Cap PO 500 mg DAILY [facility] Administration Aspirin 81 mg 08/09/16 12:30 08/10/16 08:58 Aspirin Chewable PO 81 mg DAILY [facility] Administration Atorvastatin Calcium 10 mg 08/09/16 22:00 08/10/16 21:08 Lipitor PO 10 mg HS [facility] Administration Cholecalciferol 2,000 iu 08/10/16 09:00 08/10/16 09:10 Vitamin D PO 2,000 iu DAILY [facility] Administration Enoxaparin Sodium 40 mg 08/09/16 12:45 08/10/16 08:58 Lovenox SC 40 mg DAILY [facility] Administration Protocol Fluticasone Propionate 2 spr 08/10/16 09:00 08/10/16 09:00 Flonase KEVIN 2 spr DAILY [facility] Administration Folic Acid 2 mg 08/09/16 17:00 08/10/16 17:00 Folic Acid PO 2 mg BID [facility] Administration Furosemide 40 mg 08/09/16 17:00 08/10/16 17:01 Lasix PO 40 mg BID [facility] Administration Gabapentin 100 mg 08/10/16 09:00 08/10/16 09:01 Neurontin PO 100 mg DAILY [facility] Administration Gabapentin 300 mg 08/09/16 22:00 08/10/16 21:08 Neurontin PO 300 mg HS [facility] Administration Hydroxychloroquine Sulfate 400 mg 08/10/16 09:00 08/10/16 09:01 Plaquenil PO 400 mg DAILY [facility] Administration Azithromycin 500 mg/ Sodium 250 mls @ 250 mls/hr 08/10/16 09:00 08/10/16 13: 03 Chloride IVPB 250 mls/hr DAILY [facility] Administration Piperacillin Sod/Tazobactam 100 mls @ 100 mls/hr 08/09/16 19:00 08/11/16 00: 15 Sod 3.375 gm/ Sodium Chloride IVPB 100 mls/hr Q8 [facility] Administration Methylprednisolone 40 mg/ 50.64 mls @ 100 mls/hr 08/10/16 16:00 08/11/16 03: 25 Sodium Chloride IVPB 100 mls/hr Q6 [facility] Administration Ipratropium [place] 0.5 mg 08/10/16 14:00 08/11/16 07:32 Atrovent IH 0.5 mg RQ6 [facility] Administration Levalbuterol HCl 1.25 mg 08/10/16 14:00 08/11/16 07:32 Xopenex INH 1.25 mg RQ6 [facility] Administration Methotrexate 15 mg 08/11/16 09:00 Methotrexate PO SAT [facility] Protocol Metoprolol Succinate 50 mg 08/10/16 09:00 08/10/16 09:51 Toprol Xl PO 50 mg DAILY [facility] Administration Mometasone Furoate 1 puff 08/09/16 12:30 08/10/16 08:57 Asmanex Twisthaler 220 Mcg IH 1 puff DAILY [facility] Administration Multivitamins/Minerals 1 tab 08/09/16 12:30 06/09/17 08:58 Therapeutic-M Tab PO 1 tab DAILY [facility] Administration Pantoprazole Sodium 40 mg 08/09/16 12:30 08/10/16 08:57 Protonix Ec Tab PO 40 mg DAILY [facility] Administration Saccharomyces Boulardii 250 mg 08/09/16 17:00 08/10/16 16:59 Florastor PO 250 mg BID [facility] Administration - Patient Studies Lab Studies: Lab Studies 08/11/16 08/11/16 08/10/16 Range/Units 06:30 06:30 09:17 WBC 9.1 (4.8-10.8) K/uL RBC 3.44 L (3.80-5.20) Mil/uL Hgb 11.3 L (12.0-16.0) g/dL Hct 35.6 (34.0-47.0) % MCV 103.4 H (81.0-99.0) fl MCH 32.8 H (27.0-31.0) pg MCHC 31.8 L (33.0-37.0) g/dL RDW 17.0 H (11.5-14.5) % Plt Count 169 (130-400) K/uL Neutrophils % (Manual) (42-75) % Lymphocytes % (Manual) (20-50) % Monocytes % (Manual) (0-10) % Eosinophils % (Manual) (0-7) % Platelet Estimate (NORMAL) Anisocytosis (manual) Macrocytosis (manual) pCO2 67 H (35-45) mm/Hg pO2 77 L (80-100) mm/Hg HCO3 37.3 H (21-28) mmol/L ABG pH 7.42 (7.35-7.45) ABG Total CO2 45.6 H (22-28) mmol/L ABG O2 Saturation 98.2 H (95-98) % ABG O2 Content 16.1 (15-23) ML/dL ABG Base Excess 15.9 H (-2.0-3.0) mmol/L ABG Hemoglobin 12.1 (11.7-17.4) g/dL ABG Carboxyhemoglobin 2.6 H (0.5-1.5) % POC ABG HHb (Measured) 1.7 (0.0-5.0) % ABG Methemoglobin 1.8 (0.0-3.0) % ABG O2 Capacity 16.4 (16-24) mL/dL Jorge Luis Test Yes A-a O2 Difference 124.0 mm/Hg Hgb O2 Saturation 94.0 L (95.0-98.0) % Mechanical Rate 16 FiO2 40.0 % Inspiratory BiPAP 16 Expiratory BiPAP 6 Sodium 142 (132-148) mmol/l Potassium 3.7 (3.6-5.0) MMOL/L Chloride 92 L (98-107) mmol/L Carbon Dioxide 44 H* (22-30) mmol/L Anion Gap 14 (10-20) BUN 19 H (7-17) mg/dl Creatinine 0.9 (0.7-1.2) mg/dL Est GFR ( Amer) > 60 Est GFR (Non-Af Amer) > 60 Random Glucose 124 H (65-105) mg/dL Calcium 9.0 (8.4-10.2) mg/dL Influenza Typ A,B (EIA) (NEGATIVE) 08/10/16 08/09/16 Range/Units 05:00 23:48 WBC (4.8-10.8) K/uL RBC (3.80-5.20) Mil/uL Hgb (12.0-16.0) g/dL Hct (34.0-47.0) % MCV (81.0-99.0) fl MCH (27.0-31.0) pg MCHC (33.0-37.0) g/dL RDW (11.5-14.5) % Plt Count (130-400) K/uL Neutrophils % (Manual) 90 H (42-75) % Lymphocytes % (Manual) 7 L (20-50) % Monocytes % (Manual) 1 (0-10) % Eosinophils % (Manual) 2 (0-7) % Platelet Estimate Normal (NORMAL) Anisocytosis (manual) Slight Macrocytosis (manual) Slight pCO2 (35-45) mm/Hg pO2 (80-100) mm/Hg HCO3 (21-28) mmol/L ABG pH (7.35-7.45) ABG Total CO2 (22-28) mmol/L ABG O2 Saturation (95-98) % ABG O2 Content (15-23) ML/dL ABG Base Excess (-2.0-3.0) mmol/L ABG Hemoglobin (11.7-17.4) g/dL ABG Carboxyhemoglobin (0.5-1.5) % POC ABG HHb (Measured) (0.0-5.0) % ABG Methemoglobin (0.0-3.0) % ABG O2 Capacity (16-24) mL/dL Jorge Luis Test A-a O2 Difference mm/Hg Hgb O2 Saturation (95.0-98.0) % Mechanical Rate FiO2 % Inspiratory BiPAP Expiratory BiPAP Sodium (132-148) mmol/l Potassium (3.6-5.0) MMOL/L Chloride (98-107) mmol/L Carbon Dioxide (22-30) mmol/L Anion Gap (10-20) BUN (7-17) mg/dl Creatinine (0.7-1.2) mg/dL Est GFR ( Amer) Est GFR (Non-Af Amer) Random Glucose (65-105) mg/dL Calcium (8.4-10.2) mg/dL Influenza Typ A,B (EIA) Negative for flu a/b (NEGATIVE) Laboratory Results - last 24 hr 08/09/16 08/10/16 08/10/16 23:48 05:00 09:17 WBC RBC Hgb Hct MCV MCH MCHC RDW Plt Count Neutrophils % (Manual) 90 H Lymphocytes % (Manual) 7 L Monocytes % (Manual) 1 Eosinophils % (Manual) 2 Platelet Estimate Normal Anisocytosis (manual) Slight Macrocytosis (manual) Slight pCO2 67 H pO2 77 L HCO3 37.3 H ABG pH 7.42 ABG Total CO2 45.6 H ABG O2 Saturation 98.2 H ABG O2 Content 16.1 ABG Base Excess 15.9 H ABG Hemoglobin 12.1 ABG Carboxyhemoglobin 2.6 H POC ABG HHb (Measured) 1.7 ABG Methemoglobin 1.8 ABG O2 Capacity 16.4 Jorge Luis Test Yes A-a O2 Difference 124.0 Hgb O2 Saturation 94.0 L Mechanical Rate 16 FiO2 40.0 Inspiratory BiPAP 16 Expiratory BiPAP 6 Sodium Potassium Chloride Carbon Dioxide Anion Gap BUN Creatinine Est GFR ( Amer) Est GFR (Non-Af Amer) Random Glucose Calcium Influenza Typ A,B (EIA) Negative for flu a/b 08/11/16 08/11/16 06:30 06:30 WBC 9.1 RBC 3.44 L Hgb 11.3 L Hct 35.6 MCV 103.4 H MCH 32.8 H MCHC 31.8 L RDW 17.0 H Plt Count 169 Neutrophils % (Manual) Lymphocytes % (Manual) Monocytes % (Manual) Eosinophils % (Manual) Platelet Estimate Anisocytosis (manual) Macrocytosis (manual) pCO2 pO2 HCO3 ABG pH ABG Total CO2 ABG O2 Saturation ABG O2 Content ABG Base Excess ABG Hemoglobin ABG Carboxyhemoglobin POC ABG HHb (Measured) ABG Methemoglobin ABG O2 Capacity Jorge Luis Test A-a O2 Difference Hgb O2 Saturation Mechanical Rate FiO2 Inspiratory BiPAP Expiratory BiPAP Sodium 142 Potassium 3.7 Chloride 92 L Carbon Dioxide 44 H* Anion Gap 14 BUN 19 H Creatinine 0.9 Est GFR ( Amer) > 60 Est GFR (Non-Af Amer) > 60 Random Glucose 124 H Calcium 9.0 Influenza Typ A,B (EIA) Critical Care Progress Note - Nutrition Nutrition: Nutrition Category Date Time Status Heart Healthy Diet [DIET] Diets 08/09/16 Dinner Active Assessment/Plan - Assessment and Plan (Free Text) Assessment: A/P Respiratory failure, COPD, pneumonia, CHF, A Fib, PVD, RA, pulmonary hypertension - BIPAP as needed - Pulmonary toilets - Weaning as tolerated - Continue meds - Follow up labs Critical care 35 min
--- NOTE | 2016-08-11 08:10 | CP.PCM.PN ---
<Yeyo Shepard D - Last Filed: 08/11/16 12:03> Subjective - Date & Time of Evaluation Date of Evaluation: 08/11/16 Time of Evaluation: 07:12 - Subjective Subjective: SURGERY CONSULT NOTE FOR DR. VALDEZ 66F seen and examined at bedside. Currently on biPaP. stable. Objective - Vital Signs/Intake and Output Vital Signs (last 24 hours): Temp Pulse Resp BP Pulse Ox 97.7 F 71 20 107/62 97 08/11/16 07:29 08/11/16 07:29 08/11/16 07:29 08/11/16 07:29 08/11/16 07:29 Intake and Output: 08/11/16 08/11/16 06:59 18:59 Intake Total 200 Output Total 700 Balance -500 - Medications Medications: Current Medications Acetazolamide (Diamox Sequels 500 Mg Sr Cap) 500 mg PO DAILY [facility] Last Admin: 08/10/16 09:00 Dose: 500 mg Aspirin (Aspirin Chewable) 81 mg PO DAILY [facility] Last Admin: 08/10/16 08:58 Dose: 81 mg Atorvastatin Calcium (Lipitor) 10 mg PO HS [facility] Last Admin: 08/10/16 21:08 Dose: 10 mg Cholecalciferol (Vitamin D) 2,000 iu PO DAILY [facility] Last Admin: 08/10/16 09:10 Dose: 2,000 iu Enoxaparin Sodium (Lovenox) 40 mg SC DAILY [facility] PRN Reason: Protocol Last Admin: 08/10/16 08:58 Dose: 40 mg Fluticasone Propionate (Flonase) 2 spr KEVIN DAILY [facility] Last Admin: 08/10/16 09:00 Dose: 2 spr Folic Acid (Folic Acid) 2 mg PO BID [facility] Last Admin: 08/10/16 17:00 Dose: 2 mg Furosemide (Lasix) 40 mg PO BID [facility] Last Admin: 08/10/16 17:01 Dose: 40 mg Gabapentin (Neurontin) 100 mg PO DAILY [facility] Last Admin: 08/10/16 09:01 Dose: 100 mg Gabapentin (Neurontin) 300 mg PO HS [facility] Last Admin: 08/10/16 21:08 Dose: 300 mg Hydroxychloroquine Sulfate (Plaquenil) 400 mg PO DAILY [facility] Last Admin: 08/10/16 09:01 Dose: 400 mg Azithromycin 500 mg/ Sodium (Chloride) 250 mls @ 250 mls/hr IVPB DAILY [facility] Last Admin: 08/10/16 13:03 Dose: 250 mls/hr Piperacillin Sod/Tazobactam (Sod 3.375 gm/ Sodium Chloride) 100 mls @ 100 mls/ hr IVPB Q8 [facility] Last Admin: 08/11/16 00:15 Dose: 100 mls/hr Methylprednisolone 40 mg/ (Sodium Chloride) 50.64 mls @ 100 mls/hr IVPB Q6 [facility] Last Admin: 08/11/16 03:25 Dose: 100 mls/hr Ipratropium [place] (Atrovent) 0.5 mg IH RQ6 [facility] Last Admin: 08/11/16 07:32 Dose: 0.5 mg Levalbuterol HCl (Xopenex) 1.25 mg INH RQ6 [facility] Last Admin: 08/11/16 07:32 Dose: 1.25 mg Methotrexate (Methotrexate) 15 mg PO SAT [facility] PRN Reason: Protocol Metoprolol Succinate (Toprol Xl) 50 mg PO DAILY [facility] Last Admin: 08/10/16 09:51 Dose: 50 mg Mometasone Furoate (Asmanex Twisthaler 220 Mcg) 1 puff IH DAILY [facility] Last Admin: 08/10/16 08:57 Dose: 1 puff Multivitamins/Minerals (Therapeutic-M Tab) 1 tab PO DAILY [facility] Last Admin: 08/10/16 08:58 Dose: 1 tab Pantoprazole Sodium (Protonix Ec Tab) 40 mg PO DAILY [facility] Last Admin: 08/10/16 08:57 Dose: 40 mg Saccharomyces Boulardii (Florastor) 250 mg PO BID [facility] Last Admin: 08/10/16 16:59 Dose: 250 mg - Labs Labs: 08/11/16 06:30 08/11/16 06:30 - Constitutional Appears: No Acute Distress - Respiratory Exam Respiratory Exam: Clear to Ausculation Bilateral, NORMAL BREATHING PATTERN - Cardiovascular Exam Cardiovascular Exam: REGULAR RHYTHM, +S1, +S2 - Extremities Exam Extremities Exam: Pedal Edema, Tenderness Additional comments: R foot pink and warm L foot still with slight bluish discoloration peripherally - Neurological Exam Neurological Exam: Alert, Awake Assessment and Plan - Assessment and Plan (Free Text) Assessment: 66 yo F admitted w/ COPD exacerbation, vascular surgery consulted for venous insufficiency -F/u arterial and venous duplex LE official results -Leg elevation, LE compression device Further recs discuss with Dr. Courtney Shepard, PGY1 <Brayan Valdez - Last Filed: 08/11/16 12:33> Objective - Vital Signs/Intake and Output Vital Signs (last 24 hours): Temp Pulse Resp BP Pulse Ox 97.7 F 75 22 127/61 97 08/11/16 07:29 08/11/16 10:45 08/11/16 10:45 08/11/16 10:30 08/11/16 07:29 Intake and Output: 08/11/16 08/11/16 06:59 18:59 Intake Total 200 Output Total 700 Balance -500 - Medications Medications: Current Medications Acetazolamide (Diamox Sequels 500 Mg Sr Cap) 500 mg PO DAILY [facility] Last Admin: 08/11/16 10:29 Dose: 500 mg Aspirin (Aspirin Chewable) 81 mg PO DAILY [facility] Last Admin: 08/11/16 10:28 Dose: 81 mg Atorvastatin Calcium (Lipitor) 10 mg PO HS [facility] Last Admin: 08/10/16 21:08 Dose: 10 mg Cholecalciferol (Vitamin D) 2,000 iu PO DAILY [facility] Last Admin: 08/11/16 10:28 Dose: 2,000 iu Enoxaparin Sodium (Lovenox) 40 mg SC DAILY [facility] PRN Reason: Protocol Last Admin: 08/11/16 10:30 Dose: 40 mg Fluticasone Propionate (Flonase) 2 spr KEVIN DAILY [facility] Last Admin: 08/11/16 10:29 Dose: 2 spr Folic Acid (Folic Acid) 2 mg PO BID [facility] Last Admin: 08/11/16 10:35 Dose: Not Given Furosemide (Lasix) 40 mg PO BID [facility] Last Admin: 08/11/16 10:30 Dose: 40 mg Gabapentin (Neurontin) 100 mg PO DAILY [facility] Last Admin: 08/11/16 10:27 Dose: 100 mg Gabapentin (Neurontin) 300 mg PO HS [facility] Last Admin: 08/10/16 21:08 Dose: 300 mg Hydroxychloroquine Sulfate (Plaquenil) 400 mg PO DAILY [facility] Last Admin: 08/11/16 10:27 Dose: 400 mg Azithromycin 500 mg/ Sodium (Chloride) 250 mls @ 250 mls/hr IVPB DAILY [facility] Last Admin: 08/11/16 10:34 Dose: 250 mls/hr Piperacillin Sod/Tazobactam (Sod 3.375 gm/ Sodium Chloride) 100 mls @ 100 mls/ hr IVPB Q8 [facility] Last Admin: 08/11/16 10:34 Dose: 100 mls/hr Methylprednisolone 30 mg/ (Sodium Chloride) 50.48 mls @ 100 mls/hr IVPB Q6 [facility] Last Admin: 08/11/16 10:33 Dose: 100 mls/hr Ipratropium [place] (Atrovent) 0.5 mg IH RQ6 [facility] Last Admin: 08/11/16 07:32 Dose: 0.5 mg Levalbuterol HCl (Xopenex) 1.25 mg INH RQ6 [facility] Last Admin: 08/11/16 07:32 Dose: 1.25 mg Methotrexate (Methotrexate) 15 mg PO SAT [facility] PRN Reason: Protocol Last Admin: 08/11/16 10:31 Dose: 15 mg Metoprolol Succinate (Toprol Xl) 50 mg PO DAILY [facility] Last Admin: 08/11/16 10:28 Dose: 50 mg Mometasone Furoate (Asmanex Twisthaler 220 Mcg) 1 puff IH DAILY [facility] Last Admin: 08/11/16 10:38 Dose: Not Given Multivitamins/Minerals (Therapeutic-M Tab) 1 tab PO DAILY [facility] Last Admin: 08/11/16 10:29 Dose: 1 tab Pantoprazole Sodium (Protonix Ec Tab) 40 mg PO DAILY [facility] Last Admin: 08/11/16 10:28 Dose: 40 mg Saccharomyces Boulardii (Florastor) 250 mg PO BID [facility] Last Admin: 08/11/16 10:30 Dose: 250 mg - Labs Labs: 08/11/16 06:30 08/11/16 06:30 Attending/Attestation - Attestation I have personally seen and examined this patient.: Yes I have fully participated in the care of the patient.: Yes I have reviewed all pertinent clinical information, including history, physical exam and plan: Yes Notes (Text): 08/11/16 12:16 Patient seen and examined. Pulmonary status is still tenuous, but improved. Patient is short of breath with no acute complaints otherwise. She relates that she has had episodic toes discoloration for a while and was worked up for Raynaud's disease in the past. Otherwise, she denies diminished motor function or sensation in her toes bilaterally. Both feet are not frankly ischemic although there is bluish discoloration to the left toes which are cool but not cold which likely is multifactorial. Venous ultrasound of the lower extremities shows no evidence of DVT. 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 From vascular standpoint we'll continue supportive care and observation, leg elevation and improvement of respiratory status.
--- NOTE | 2016-08-11 08:24 | CP.PCM.PN ---
Subjective - Date & Time of Evaluation Date of Evaluation: 08/11/16 Time of Evaluation: 08:16 - Subjective Subjective: Seen on morning rounds; EMR entries reviewed. Has been on BiPAP NIPPV with short periods of regular nasal canula for eating. Much more awake and interactive this morning. AM labs reviewed. Lower extremities US testing done yesterday. LE's are much less edematous, both feet are warm and pink. Neck is supple and trachea midline. No palpable lymphadenopathy. Breath sounds are markedly diminished bilaterally. Rare dry rales in posterior lung bases. No audible wheezes although E phase still slightly prolonged. Heart rate is in the 60's, looks like a fib. Abdomen is obese, non-tender with normal BS. Will continue to reduce solumedrol dose. ABG is pending presently. Switch to High-Flow?- pending above. Would probably still require overnight BiPAP even if switched. OOB to chair and bedside camode if able. Although I would prefer to stop her beta tacos, it appears this has been a necessity for rate control. Continue present empiric antibiotic therapy. Case discussed with the roller maker. Objective - Vital Signs/Intake and Output Vital Signs (last 24 hours): Temp Pulse Resp BP Pulse Ox 97.7 F 71 20 107/62 97 08/11/16 07:29 08/11/16 07:29 08/11/16 07:29 08/11/16 07:29 08/11/16 07:29 Intake and Output: 08/10/16 08/11/16 23:59 11:59 Intake Total 0 200 Output Total 700 Balance 0 -500 - Medications Medications: Current Medications Acetazolamide (Diamox Sequels 500 Mg Sr Cap) 500 mg PO DAILY [facility] Last Admin: 08/10/16 09:00 Dose: 500 mg Aspirin (Aspirin Chewable) 81 mg PO DAILY [facility] Last Admin: 08/10/16 08:58 Dose: 81 mg Atorvastatin Calcium (Lipitor) 10 mg PO HS [facility] Last Admin: 08/10/16 21:08 Dose: 10 mg Cholecalciferol (Vitamin D) 2,000 iu PO DAILY [facility] Last Admin: 08/10/16 09:10 Dose: 2,000 iu Enoxaparin Sodium (Lovenox) 40 mg SC DAILY [facility] PRN Reason: Protocol Last Admin: 08/10/16 08:58 Dose: 40 mg Fluticasone Propionate (Flonase) 2 spr KEVIN DAILY [facility] Last Admin: 08/10/16 09:00 Dose: 2 spr Folic Acid (Folic Acid) 2 mg PO BID [facility] Last Admin: 08/10/16 17:00 Dose: 2 mg Furosemide (Lasix) 40 mg PO BID [facility] Last Admin: 08/10/16 17:01 Dose: 40 mg Gabapentin (Neurontin) 100 mg PO DAILY [facility] Last Admin: 08/10/16 09:01 Dose: 100 mg Gabapentin (Neurontin) 300 mg PO HS [facility] Last Admin: 08/10/16 21:08 Dose: 300 mg Hydroxychloroquine Sulfate (Plaquenil) 400 mg PO DAILY [facility] Last Admin: 08/10/16 09:01 Dose: 400 mg Azithromycin 500 mg/ Sodium (Chloride) 250 mls @ 250 mls/hr IVPB DAILY [facility] Last Admin: 08/10/16 13:03 Dose: 250 mls/hr Piperacillin Sod/Tazobactam (Sod 3.375 gm/ Sodium Chloride) 100 mls @ 100 mls/ hr IVPB Q8 [facility] Last Admin: 08/11/16 00:15 Dose: 100 mls/hr Methylprednisolone 30 mg/ (Sodium Chloride) 50.48 mls @ 100 mls/hr IVPB Q6 [facility] Ipratropium [place] (Atrovent) 0.5 mg IH RQ6 [facility] Last Admin: 08/11/16 07:32 Dose: 0.5 mg Levalbuterol HCl (Xopenex) 1.25 mg INH RQ6 [facility] Last Admin: 08/11/16 07:32 Dose: 1.25 mg Methotrexate (Methotrexate) 15 mg PO [facility] PRN Reason: Protocol Metoprolol Succinate (Toprol Xl) 50 mg PO DAILY [facility] Last Admin: 08/10/16 09:51 Dose: 50 mg Mometasone Furoate (Asmanex Twisthaler 220 Mcg) 1 puff IH DAILY [facility] Last Admin: 08/10/16 08:57 Dose: 1 puff Multivitamins/Minerals (Therapeutic-M Tab) 1 tab PO DAILY [facility] Last Admin: 08/10/16 08:58 Dose: 1 tab Pantoprazole Sodium (Protonix Ec Tab) 40 mg PO DAILY [facility] Last Admin: 08/10/16 08:57 Dose: 40 mg Saccharomyces Boulardii (Florastor) 250 mg PO BID [facility] Last Admin: 08/10/16 16:59 Dose: 250 mg - Labs Labs: 08/11/16 06:30 08/11/16 06:30 Assessment and Plan (1) Acute on chronic respiratory failure with hypoxia and hypercapnia Status: Acute (2) COPD (chronic obstructive pulmonary disease) Status: Chronic (3) Atrial fibrillation Status: Acute (4) Leg edema Status: Chronic (5) Rheumatoid arthritis Status: Chronic (6) Pulmonary hypertension Status: Chronic
[2016-08-11 08:33] LABS: ABG ALLEN TEST YES; ARTERIAL BLOOD GAS HCO3 39.5 mmol/L (21-28); ARTERIAL BLOOD GAS MODE BiPAP; ARTERIAL BLOOD GAS O2 CAPACITY 15.8 mL/dL (16-24); ARTERIAL BLOOD GAS O2 CONTENT 15.5 ML/dL (15-23); ARTERIAL BLOOD GAS PH 7.42 (7.35-7.45); ARTERIAL BLOOD GAS PO2 84 mm/Hg (80-100); ARTERIAL BLOOD HGB O2 SAT 94.7 % (95.0-98.0); CARBOXYHEMOGLOBIN 1.9 % (0.5-1.5); HHB 1.7 % (0.0-5.0); METHEMOGLOBIN 1.7 % (0.0-3.0)
--- NOTE | 2016-08-11 10:04 | CP.PCM.PN ---
Subjective - Date & Time of Evaluation Date of Evaluation: 08/11/16 Time of Evaluation: 09:30 - Subjective Subjective: Pt off Bipap at present - intermittently on oxygen per NC No fever still with SOB but better + sl cough denies CP No abd pain Objective - Vital Signs/Intake and Output Vital Signs (last 24 hours): Temp Pulse Resp BP Pulse Ox 97.7 F 71 20 107/62 97 08/11/16 07:29 08/11/16 07:29 08/11/16 07:29 08/11/16 07:29 08/11/16 07:29 Intake and Output: 08/11/16 08/11/16 06:59 18:59 Intake Total 200 Output Total 700 Balance -500 - Medications Medications: Current Medications Acetazolamide (Diamox Sequels 500 Mg Sr Cap) 500 mg PO DAILY [facility] Last Admin: 08/10/16 09:00 Dose: 500 mg Aspirin (Aspirin Chewable) 81 mg PO DAILY [facility] Last Admin: 08/10/16 08:58 Dose: 81 mg Atorvastatin Calcium (Lipitor) 10 mg PO HS [facility] Last Admin: 08/10/16 21:08 Dose: 10 mg Cholecalciferol (Vitamin D) 2,000 iu PO DAILY [facility] Last Admin: 08/10/16 09:10 Dose: 2,000 iu Enoxaparin Sodium (Lovenox) 40 mg SC DAILY [facility] PRN Reason: Protocol Last Admin: 08/10/16 08:58 Dose: 40 mg Fluticasone Propionate (Flonase) 2 spr KEVIN DAILY [facility] Last Admin: 08/10/16 09:00 Dose: 2 spr Folic Acid (Folic Acid) 2 mg PO BID [facility] Last Admin: 08/10/16 17:00 Dose: 2 mg Furosemide (Lasix) 40 mg PO BID [facility] Last Admin: 08/10/16 17:01 Dose: 40 mg Gabapentin (Neurontin) 100 mg PO DAILY [facility] Last Admin: 08/10/16 09:01 Dose: 100 mg Gabapentin (Neurontin) 300 mg PO HS [facility] Last Admin: 08/10/16 21:08 Dose: 300 mg Hydroxychloroquine Sulfate (Plaquenil) 400 mg PO DAILY [facility] Last Admin: 08/10/16 09:01 Dose: 400 mg Azithromycin 500 mg/ Sodium (Chloride) 250 mls @ 250 mls/hr IVPB DAILY [facility] Last Admin: 08/10/16 13:03 Dose: 250 mls/hr Piperacillin Sod/Tazobactam (Sod 3.375 gm/ Sodium Chloride) 100 mls @ 100 mls/ hr IVPB Q8 [facility] Last Admin: 08/11/16 00:15 Dose: 100 mls/hr Methylprednisolone 30 mg/ (Sodium Chloride) 50.48 mls @ 100 mls/hr IVPB Q6 [facility] Ipratropium Wilson (Atrovent) 0.5 mg IH RQ6 [facility] Last Admin: 08/11/16 07:32 Dose: 0.5 mg Levalbuterol HCl (Xopenex) 1.25 mg INH RQ6 [facility] Last Admin: 08/11/16 07:32 Dose: 1.25 mg Methotrexate (Methotrexate) 15 mg PO SAT [facility] PRN Reason: Protocol Metoprolol Succinate (Toprol Xl) 50 mg PO DAILY [facility] Last Admin: 08/10/16 09:51 Dose: 50 mg Mometasone Furoate (Asmanex Twisthaler 220 Mcg) 1 puff IH DAILY [facility] Last Admin: 08/10/16 08:57 Dose: 1 puff Multivitamins/Minerals (Therapeutic-M Tab) 1 tab PO DAILY [facility] Last Admin: 08/10/16 08:58 Dose: 1 tab Pantoprazole Sodium (Protonix Ec Tab) 40 mg PO DAILY [facility] Last Admin: 08/10/16 08:57 Dose: 40 mg Saccharomyces Boulardii (Florastor) 250 mg PO BID [facility] Last Admin: 08/10/16 16:59 Dose: 250 mg - Labs Labs: 08/11/16 06:30 08/11/16 06:30 - Constitutional Appears: In Acute Distress, Chronically Ill - Head Exam Head Exam: NORMAL INSPECTION, NORMOCEPHALIC - Eye Exam Eye Exam: EOMI, Normal appearance Pupil Exam: NORMAL ACCOMODATION - ENT Exam ENT Exam: Mucous Membranes Dry, Normal External Ear Exam - Neck Exam Neck Exam: Full ROM. absent: Meningismus - Respiratory Exam Respiratory Exam: Rales, Rhonchi, Respiratory Distress, decrease BS, no wheezing Additional comments: on NC at present - Cardiovascular Exam Cardiovascular Exam: REGULAR RHYTHM, +S1, +S2 - GI/Abdominal Exam GI & Abdominal Exam: Soft, Normal Bowel Sounds. absent: Tenderness - Extremities Exam Extremities Exam: Pedal Edema. absent: Calf Tenderness Additional comments: decrease peripheral pulses , bilat dusky toes - Back Exam Back Exam: Full ROM. absent: CVA tenderness (L), CVA tenderness (R) - Neurological Exam Neurological Exam: CN II-XII Intact, Oriented x3 Neuro motor strength exam: Left Upper Extremity: 5, Right Upper Extremity: 5, Left Lower Extremity: 5, Right Lower Extremity: 5 Additional comments: pt more alert today , oooriented x 3 - Psychiatric Exam Psychiatric exam: Flat Affect - Skin Skin Exam: Dry, Pallor Assessment and Plan - Assessment and Plan (Free Text) Assessment: 66 year old female (PMHx: COPD, CHF, HTN, HLD, RA, Chornic LE Edema, Atrial Fibrillation) presented to the ER via EMS with her with a chief complaint of SOB. Found to be in respiratory failure. Currently in ICU on Bipap and intermittently on NC wheneating 1. Acute on Chronic Respiratory Failure with Hypoxia and Hypercapnea likely sec to COPD and PNA on NIPPV - Bipap but intermittently on NC more alert today ABG shows improvement in acidosis and hypercapnea however still with high CO2 level Pulm on consult - Dr Yusuf cont IV Solumedrol cont Xopenex neb tx cont IV abx (2) COPD exacerbation Consult Pulmonology Dr. Yusuf Solumedrol decreased to 40 mg IV Q6H Xopenex 1.25 mg nebulizer Q8H Asmanex 220 mcg puff INH 1x/day Spiriva 18 mcg 2 PO INH of 1 capsule via Handihaler Device 1x/day (3) Bilateral pneumonia Chest X Ray 08/09/16 shows new RLL and STEPHEN infiltrates Azithromycin 500 mg IV Q24H ID consulted- Dr Cantor added IV Zosyn and d/c IV ceftriaxone Rapid Influenza: neg Sputum c/s, Legionella Mycoplasm IgM : neg (4)Hx of Multifocal Atrial Tachycardia and episode of A Fib She states that she is being followed as an outpatient by [employer] [facility] Dr. Cole ASA 81 mg PO 1x/day Metoprolol XL 50 mg PO 1x/day (4) Chronic CHF (congestive heart failure), Diastolic dysfunction/Pulm HTN Assessment and Plan: ECHO 04/20 : normal EF Metoprolol XL 50 mg PO 1x/day Patient is being followed by Dr. Cole as outpatient (5) HTN (hypertension) Metoprolol XL 50 mg PO 1x/day (6) Hyperlipidemia Atorvastatin 10 mg PO QHS (7) GERD (gastroesophageal reflux disease) Omeprazole 20 mg PO 1x/day (8) Rheumatoid arthritis with poss Interstitial Lung Disease Methotrexate 15 mg PO 1x/day on Saturday Folic Acid 2 mg PO 2x/day Plaquenil 400 mg PO 1x/day CT of chest once pt is more stable (9) Peripheral Vascular Dis/Venous Insufficiency Vascular Sx on consult Art Doppler studies LE: decrease flow right more than left Neg DVT on LE Venous US (10) Prophylactic measure Lovenox 40 mg SC 1x/day for DVT Prophylaxis Omeprazole 20 mg PO 1x/day for GI Prophylaxis Florastor 250 mg PO 2x/day as patient has been placed on antibiotics for the Bilateral Lung Infiltrates MVI PO 1x/day Cholecalciferal 2,000 Units PO 1x/day
[2016-08-11] MEDS: Mometasone 220 mcg/puff-14 puff Inh IH SCH ×2 (10:26→10:38)
[2016-08-11] MEDS: Metoprolol Succinate 50 mg XL Tab PO SCH (10:28)
[2016-08-11] MEDS: Pantoprazole 40 mg EC Tab PO SCH (10:28)
[2016-08-11] MEDS: Multivitamin With Minerals Tab PO SCH (10:29)
[2016-08-11] MEDS: acetaZOLAMIDE 500 mg SR Cap PO SCH (10:29)
[2016-08-11] MEDS: Saccharomyces Boulardi 250 mg Cap PO SCH ×2 (10:30→16:29)
[2016-08-11] MEDS: Enoxaparin 40 mg Syringe SC SCH (10:30)
[2016-08-11] MEDS: methylPREDNISolone 30 MG in Sodium Chloride 0.9% 50 ML IVPB SCH ×3 (10:33→21:10)
[2016-08-11] MEDS: Azithromycin 500 MG in Sodium Chloride 0.9% 250 ML IVPB SCH (10:34)
--- NOTE | 2016-08-11 10:48 | US ---
PROCEDURE: Bilateral lower extremity venous duplex Doppler. HISTORY: Eval for venous insuffic. COMPARISON: None available. TECHNIQUE: Bilateral common femoral, superficial femoral, popliteal and posterior tibial veins were evaluated. Flow was assessed with color Doppler, compressibility, assessment of phasic flow and augmentation response. FINDINGS: COMMON FEMORAL VEIN: Right CFV: Unremarkable. Left CFV: Unremarkable. SUPERFICIAL FEMORAL VEIN: Right SFV: Unremarkable. Left SFV: Unremarkable. POPLITEAL VEIN: Right Popliteal: Unremarkable. Left Popliteal: Unremarkable. POSTERIOR TIBIAL VEIN: Right PTV: Unremarkable. Left PTV: Unremarkable. OTHER FINDINGS: None. IMPRESSION: No evidence of deep venous thrombosis.
--- NOTE | 2016-08-11 10:51 | US ---
PROCEDURE: Duplex ultrasound of the bilateral lower extremity arteries. HISTORY: Eval for PAD COMPARISON: None available. TECHNIQUE: Grayscale and duplex Doppler evaluation of the bilateral common femoral, superficial femoral, popliteal, posterior tibial and dorsalis pedis arteries was performed.. FINDINGS: RIGHT LOWER EXTREMITY: RIGHT COMMON FEMORAL ARTERY: Atherosclerotic disease is diffuse. Maximal flow velocity of two hundred seven cm/s. RIGHT SUPERFICIAL FEMORAL ARTERY: Diffuse atherosclerotic disease Maximal flow velocity of 142 cm/s. RIGHT POPLITEAL ARTERY:Widely patent. Maximal flow velocity of 88 cm/s. RIGHT POSTERIOR TIBIAL ARTERY: Widely patent. Maximal flow velocity of 44 cm/s. RIGHT DORSALIS PEDIS ARTERY: Atherosclerotic disease, monophasic waveform with spectral broadening. Maximal flow velocity of 22.0 cm/s. LEFT LOWER EXTREMITY: LEFT COMMON FEMORAL ARTERY: Atherosclerotic disease less severe compared to the contralateral side. Maximal flow velocity of 164.5 cm/s. LEFT SUPERFICIAL FEMORAL ARTERY: Proximal atherosclerotic disease Maximal flow velocity of 146.5 cm/s. LEFT POPLITEAL ARTERY:Widely patent. Maximal flow velocity of 49.5 cm/s. LEFT POSTERIOR TIBIAL ARTERY: Widely patent. Maximal flow velocity of 76.5 cm/s. LEFT DORSALIS PEDIS ARTERY: Widely patent. Maximal flow velocity of 72.4 cm/s. OTHER FINDINGS: Calf edema bilaterally right greater than left IMPRESSION: Right lower extremity: Inflow disease primarily affecting the right common femoral and superficial femoral arteries. Left lower extremity: Atherosclerotic disease less severe compared to the contralateral side.
[2016-08-11 19:03] LABS: FOLATE > 20.0 ng/mL
[2016-08-12] MEDS: Piperacillin/Tazobact 3.375 GM in Sodium Chloride 0.9% 100 ML IVPB SCH ×3 (00:09→16:38)
[2016-08-12] MEDS: Ipratropium 0.02% Inhal Soln (0.5 mg/2.5 ml) UD IH SCH ×4 (01:03→19:45)
[2016-08-12] MEDS: Levalbuterol 1.25 MG/3 ML Inhal Soln UD INH SCH ×4 (01:03→19:45)
[2016-08-12] MEDS: methylPREDNISolone 30 MG in Sodium Chloride 0.9% 50 ML IVPB SCH ×3 (04:40→16:40)
[2016-08-12 07:15] LABS: HEMATOCRIT 37.4 % (34.0-47.0); MEAN CELL VOLUME 105.5 fl (81.0-99.0); MEAN CORPUSCULAR HEMOGLOBIN 32.7 pg (27.0-31.0); RED CELL DISTRIBUTION WIDTH 16.9 % (11.5-14.5); WHITE BLOOD COUNT 7.8 K/uL (4.8-10.8)
--- NOTE | 2016-08-12 07:21 | CP.CCUPN ---
CCU Subjective - Physician Review Events Since Last Encounter (Free Text): 08/12/16 07:21 Patient awake, on BIPAP 16/6 with O2 supplement 40%, no fever, no chest pain, follow commands, events reviewed CCU Objective - Vital Signs / Intake & Output Vital Signs (Last 4 hours): Vital Signs Temp Pulse Resp BP Pulse Ox 08/12/16 06:00 56 L 17 117/56 L 100 08/12/16 04:00 98.8 F 58 L 22 88/50 L 99 08/12/16 03:35 56 L Intake and Output (Last 8hrs): Intake & Output 08/11/16 08/12/16 08/12/16 22:59 06:59 14:59 Intake Total 150 100 Output Total 500 Balance 150 -400 Intake: Intake, Piggyback 50 100 Oral 100 Output: Urine 500 Urine, Voided 500 Other: # Voids Urine, Voided 2 - Physical Exam Head: Positive for: Atraumatic, Normocephalic Pupils: Positive for: PERRL Conjunctiva: Positive for: Normal Mouth: Positive for: Moist Mucous Membranes Nose (External): Positive for: Atraumatic Neck: Positive for: Normal Range of Motion Respiratory/Chest: Positive for: Rhonchi Cardiovascular: Positive for: Irregular Rhythm Abdomen: Positive for: Normal Bowel Sounds Upper Extremity: Positive for: Normal Inspection Lower Extremity: Positive for: Edema Skin: Positive for: Warm, Dry Psychiatric: Positive for: Alert - Medications Active Medications: Active Medications Generic Name Dose Route Start Last Admin Trade Name Freq PRN Reason Stop Dose Admin Acetazolamide 500 mg 08/10/16 09:00 08/11/16 10:29 Diamox Sequels 500 Mg Sr Cap PO 500 mg DAILY [facility] Administration Aspirin 81 mg 08/09/16 12:30 08/11/16 10:28 Aspirin Chewable PO 81 mg DAILY [facility] Administration Atorvastatin Calcium 10 mg 08/09/16 22:00 08/11/16 21:09 Lipitor PO 10 mg HS [facility] Administration Cholecalciferol 2,000 iu 08/10/16 09:00 08/11/16 10:28 Vitamin D PO 2,000 iu DAILY [facility] Administration Enoxaparin Sodium 40 mg 08/09/16 12:45 08/11/16 10:30 Lovenox SC 40 mg DAILY [facility] Administration Protocol Fluticasone Propionate 2 spr 08/10/16 09:00 08/11/16 10:29 Flonase KEVIN 2 spr DAILY [facility] Administration Folic Acid 2 mg 08/09/16 17:00 08/11/16 16:29 Folic Acid PO Not Given BID [facility] Furosemide 40 mg 08/09/16 17:00 08/11/16 16:29 Lasix PO 40 mg BID [facility] Administration Gabapentin 100 mg 08/10/16 09:00 08/11/16 10:27 Neurontin PO 100 mg DAILY [facility] Administration Gabapentin 300 mg 08/09/16 22:00 08/11/16 21:09 Neurontin PO 300 mg HS [facility] Administration Hydroxychloroquine Sulfate 400 mg 08/10/16 09:00 08/11/16 10:27 Plaquenil PO 400 mg DAILY [facility] Administration Azithromycin 500 mg/ Sodium 250 mls @ 250 mls/hr 08/10/16 09:00 08/11/16 10: 34 Chloride IVPB 250 mls/hr DAILY [facility] Administration Piperacillin Sod/Tazobactam 100 mls @ 100 mls/hr 08/09/16 19:00 08/12/16 00: 09 Sod 3.375 gm/ Sodium Chloride IVPB 100 mls/hr Q8 [facility] Administration Methylprednisolone 30 mg/ 50.48 mls @ 100 mls/hr 08/11/16 10:00 08/12/16 04: 40 Sodium Chloride IVPB 100 mls/hr Q6 [facility] Administration Ipratropium [place] 0.5 mg 08/10/16 14:00 08/12/16 01:03 Atrovent IH 0.5 mg RQ6 [facility] Administration Levalbuterol HCl 1.25 mg 08/10/16 14:00 08/12/16 01:03 Xopenex INH 1.25 mg RQ6 [facility] Administration Methotrexate 15 mg 08/11/16 09:00 08/11/16 10:31 Methotrexate PO 15 mg SAT [facility] Administration Protocol Metoprolol Succinate 50 mg 08/10/16 09:00 08/11/16 10:28 Toprol Xl PO 50 mg DAILY [facility] Administration Mometasone Furoate 1 puff 08/09/16 12:30 08/11/16 10:38 Asmanex Twisthaler 220 Mcg IH Not Given DAILY [facility] Multivitamins/Minerals 1 tab 08/09/16 12:30 08/11/16 10:29 Therapeutic-M Tab PO 1 tab DAILY [facility] Administration Pantoprazole Sodium 40 mg 08/09/16 12:30 08/11/16 10:28 Protonix Ec Tab PO 40 mg DAILY [facility] Administration Saccharomyces Boulardii 250 mg 08/09/16 17:00 08/11/16 16:29 Florastor PO 250 mg BID [facility] Administration - Patient Studies Lab Studies: Microbiology Studies 08/09/16 Unknown MRSA Culture (Admit) - Final Naris MRSA NOT DETECTED 08/09/16 18:30 Gram Stain - Final Sputum Lab Studies 08/12/16 08/11/16 08/11/16 Range/Units 05:30 08:25 06:30 WBC 7.8 (4.8-10.8) K/uL RBC 3.54 L (3.80-5.20) Mil/uL Hgb 11.6 L (12.0-16.0) g/dL Hct 37.4 (34.0-47.0) % MCV 105.5 H D (81.0-99.0) fl MCH 32.7 H (27.0-31.0) pg MCHC 31.0 L (33.0-37.0) g/dL RDW 16.9 H (11.5-14.5) % Plt Count 153 (130-400) K/uL pCO2 72 H* (35-45) mm/Hg pO2 84 (80-100) mm/Hg HCO3 39.5 H (21-28) mmol/L ABG pH 7.42 (7.35-7.45) ABG Total CO2 48.9 H (22-28) mmol/L ABG O2 Saturation 98.2 H (95-98) % ABG O2 Content 15.5 (15-23) ML/dL ABG Base Excess 18.8 H (-2.0-3.0) mmol/L ABG Hemoglobin 11.6 L (11.7-17.4) g/dL ABG Carboxyhemoglobin 1.9 H (0.5-1.5) % POC ABG HHb (Measured) 1.7 (0.0-5.0) % ABG Methemoglobin 1.7 (0.0-3.0) % ABG O2 Capacity 15.8 L (16-24) mL/dL Jorge Luis Test Yes A-a O2 Difference 111.0 mm/Hg Hgb O2 Saturation 94.7 L (95.0-98.0) % Vent Mode Bipap FiO2 40.0 % Inspiratory BiPAP 16 Expiratory BiPAP 6 Crit Value Called To Dr oni bull Crit Value Called By Rt Crit Value Read Back Y Blood Gas Notified Time 832 Sodium 142 (132-148) mmol/l Potassium 3.7 (3.6-5.0) MMOL/L Chloride 92 L (98-107) mmol/L Carbon Dioxide 44 H* (22-30) mmol/L Anion Gap 14 (10-20) BUN 19 H (7-17) mg/dl Creatinine 0.9 (0.7-1.2) mg/dL Est GFR ( Amer) > 60 Est GFR (Non-Af Amer) > 60 Random Glucose 124 H (65-105) mg/dL Calcium 9.0 (8.4-10.2) mg/dL Vitamin B12 776 (239-931) pg/mL Folate > 20.0 ng/mL Mycoplasma pneumon IgG (<=0.90) Mycoplasma pneumon IgM (<770) U/mL 08/09/16 Range/Units 14:45 WBC (4.8-10.8) K/uL RBC (3.80-5.20) Mil/uL Hgb (12.0-16.0) g/dL Hct (34.0-47.0) % MCV (81.0-99.0) fl MCH (27.0-31.0) pg MCHC (33.0-37.0) g/dL RDW (11.5-14.5) % Plt Count (130-400) K/uL pCO2 (35-45) mm/Hg pO2 (80-100) mm/Hg HCO3 (21-28) mmol/L ABG pH (7.35-7.45) ABG Total CO2 (22-28) mmol/L ABG O2 Saturation (95-98) % ABG O2 Content (15-23) ML/dL ABG Base Excess (-2.0-3.0) mmol/L ABG Hemoglobin (11.7-17.4) g/dL ABG Carboxyhemoglobin (0.5-1.5) % POC ABG HHb (Measured) (0.0-5.0) % ABG Methemoglobin (0.0-3.0) % ABG O2 Capacity (16-24) mL/dL Jorge Luis Test A-a O2 Difference mm/Hg Hgb O2 Saturation (95.0-98.0) % Vent Mode FiO2 % Inspiratory BiPAP Expiratory BiPAP Crit Value Called To Crit Value Called By Crit Value Read Back Blood Gas Notified Time Sodium (132-148) mmol/l Potassium (3.6-5.0) MMOL/L Chloride (98-107) mmol/L Carbon Dioxide (22-30) mmol/L Anion Gap (10-20) BUN (7-17) mg/dl Creatinine (0.7-1.2) mg/dL Est GFR ( Amer) Est GFR (Non-Af Amer) Random Glucose (65-105) mg/dL Calcium (8.4-10.2) mg/dL Vitamin B12 (239-931) pg/mL Folate ng/mL Mycoplasma pneumon IgG 3.32 H (<=0.90) Mycoplasma pneumon IgM 58 (<770) U/mL Laboratory Results - last 24 hr 08/09/16 08/11/16 08/11/16 14:45 06:30 08:25 WBC RBC Hgb Hct MCV MCH MCHC RDW Plt Count pCO2 72 H* pO2 84 HCO3 39.5 H ABG pH 7.42 ABG Total CO2 48.9 H ABG O2 Saturation 98.2 H ABG O2 Content 15.5 ABG Base Excess 18.8 H ABG Hemoglobin 11.6 L ABG Carboxyhemoglobin 1.9 H POC ABG HHb (Measured) 1.7 ABG Methemoglobin 1.7 ABG O2 Capacity 15.8 L Jorge Luis Test Yes A-a O2 Difference 111.0 Hgb O2 Saturation 94.7 L Vent Mode Bipap FiO2 40.0 Inspiratory BiPAP 16 Expiratory BiPAP 6 Crit Value Called To Dr oni bull Crit Value Called By Rt Crit Value Read Back Y Blood Gas Notified Time 832 Sodium 142 Potassium 3.7 Chloride 92 L Carbon Dioxide 44 H* Anion Gap 14 BUN 19 H Creatinine 0.9 Est GFR ( Amer) > 60 Est GFR (Non-Af Amer) > 60 Random Glucose 124 H Calcium 9.0 Vitamin B12 776 Folate > 20.0 Mycoplasma pneumon IgG 3.32 H Mycoplasma pneumon IgM 58 08/12/16 05:30 WBC 7.8 RBC 3.54 L Hgb 11.6 L Hct 37.4 MCV 105.5 H D MCH 32.7 H MCHC 31.0 L RDW 16.9 H Plt Count 153 pCO2 pO2 HCO3 ABG pH ABG Total CO2 ABG O2 Saturation ABG O2 Content ABG Base Excess ABG Hemoglobin ABG Carboxyhemoglobin POC ABG HHb (Measured) ABG Methemoglobin ABG O2 Capacity Jorge Luis Test A-a O2 Difference Hgb O2 Saturation Vent Mode FiO2 Inspiratory BiPAP Expiratory BiPAP Crit Value Called To Crit Value Called By Crit Value Read Back Blood Gas Notified Time Sodium Potassium Chloride Carbon Dioxide Anion Gap BUN Creatinine Est GFR ( Amer) Est GFR (Non-Af Amer) Random Glucose Calcium Vitamin B12 Folate Mycoplasma pneumon IgG Mycoplasma pneumon IgM Critical Care Progress Note - Nutrition Nutrition: Nutrition Category Date Time Status Heart Healthy Diet [DIET] Diets 08/09/16 Dinner Active Assessment/Plan - Assessment and Plan (Free Text) Assessment: A/P Respiratory failure, COPD, pneumonia, CHF, A Fib, PVD, RA, pulmonary hypertension - BIPAP as needed - Pulmonary toilets - Weaning as tolerated - Continue meds - Follow up labs Critical care 35 min
[2016-08-12 07:33] LABS: BLOOD UREA NITROGEN 21 mg/dl (7-17); CALCIUM 9.1 mg/dL (8.4-10.2); CHLORIDE 92 mmol/L (98-107); GFR AFRICAN-AMERICAN > 60; GLUCOSE,RANDOM 115 mg/dL (65-105); POTASSIUM 3.7 MMOL/L (3.6-5.0); SODIUM 143 mmol/l (132-148)
[2016-08-12 08:22] LABS: CARBON DIOXIDE > 40 mmol/L (22-30)
[2016-08-12] MEDS: Mometasone 220 mcg/puff-14 puff Inh IH SCH (08:55)
[2016-08-12] MEDS: Saccharomyces Boulardi 250 mg Cap PO SCH ×2 (08:56→16:37)
[2016-08-12] MEDS: Multivitamin With Minerals Tab PO SCH (08:56)
[2016-08-12] MEDS: Enoxaparin 40 mg Syringe SC SCH (08:58)
[2016-08-12] MEDS: Pantoprazole 40 mg EC Tab PO SCH (08:58)
[2016-08-12] MEDS: acetaZOLAMIDE 500 mg SR Cap PO SCH (08:59)
[2016-08-12] MEDS: Azithromycin 500 MG in Sodium Chloride 0.9% 250 ML IVPB SCH (09:01)
[2016-08-12] MEDS: Metoprolol Succinate 50 mg XL Tab PO SCH (09:02)
--- NOTE | 2016-08-12 10:48 | CP.PCM.PN ---
Subjective - Date & Time of Evaluation Date of Evaluation: 08/12/16 Time of Evaluation: 09:30 - Subjective Subjective: No fever Pt feels better sitted on chair comfortable on High Flow Oxygen 35l/40% no CP no abd pain bilat leg edema Objective - Vital Signs/Intake and Output Vital Signs (last 24 hours): Temp Pulse Resp BP Pulse Ox 98.7 F 62 25 H 116/69 35 L 08/12/16 08:00 08/12/16 09:02 08/12/16 10:00 08/12/16 10:00 08/12/16 10:00 Intake and Output: 08/12/16 08/12/16 06:59 18:59 Intake Total 250 Output Total 500 Balance -250 - Medications Medications: Current Medications Acetazolamide (Diamox Sequels 500 Mg Sr Cap) 500 mg PO DAILY [facility] Last Admin: 08/12/16 08:59 Dose: 500 mg Aspirin (Aspirin Chewable) 81 mg PO DAILY [facility] Last Admin: 08/12/16 08:55 Dose: 81 mg Atorvastatin Calcium (Lipitor) 10 mg PO HS [facility] Last Admin: 08/11/16 21:09 Dose: 10 mg Cholecalciferol (Vitamin D) 2,000 iu PO DAILY [facility] Last Admin: 08/12/16 08:58 Dose: 2,000 iu Enoxaparin Sodium (Lovenox) 40 mg SC DAILY [facility] PRN Reason: Protocol Last Admin: 08/12/16 08:58 Dose: 40 mg Fluticasone Propionate (Flonase) 2 spr KEVIN DAILY [facility] Last Admin: 08/12/16 08:59 Dose: 2 spr Folic Acid (Folic Acid) 2 mg PO BID [facility] Last Admin: 08/12/16 08:56 Dose: 2 mg Furosemide (Lasix) 40 mg PO BID [facility] Last Admin: 08/12/16 08:57 Dose: 40 mg Gabapentin (Neurontin) 100 mg PO DAILY [facility] Last Admin: 08/12/16 08:58 Dose: 100 mg Gabapentin (Neurontin) 300 mg PO HS [facility] Last Admin: 08/11/16 21:09 Dose: 300 mg Hydroxychloroquine Sulfate (Plaquenil) 400 mg PO DAILY [facility] Last Admin: 08/12/16 09:00 Dose: 400 mg Azithromycin 500 mg/ Sodium (Chloride) 250 mls @ 250 mls/hr IVPB DAILY [facility] Last Admin: 08/12/16 09:01 Dose: 250 mls/hr Piperacillin Sod/Tazobactam (Sod 3.375 gm/ Sodium Chloride) 100 mls @ 100 mls/ hr IVPB Q8 [facility] Last Admin: 08/12/16 09:01 Dose: 100 mls/hr Methylprednisolone 30 mg/ (Sodium Chloride) 50.48 mls @ 100 mls/hr IVPB Q8 [facility] Last Admin: 08/12/16 09:04 Dose: 100 mls/hr Ipratropium [place] (Atrovent) 0.5 mg IH RQ6 [facility] Last Admin: 08/12/16 08:17 Dose: 0.5 mg Levalbuterol HCl (Xopenex) 1.25 mg INH RQ6 [facility] Last Admin: 08/12/16 08:17 Dose: 1.25 mg Methotrexate (Methotrexate) 15 mg PO SAT [facility] PRN Reason: Protocol Last Admin: 08/11/16 10:31 Dose: 15 mg Metoprolol Succinate (Toprol Xl) 50 mg PO DAILY [facility] Last Admin: 08/12/16 09:02 Dose: 50 mg Mometasone Furoate (Asmanex Twisthaler 220 Mcg) 1 puff IH DAILY [facility] Last Admin: 08/12/16 08:55 Dose: 1 puff Multivitamins/Minerals (Therapeutic-M Tab) 1 tab PO DAILY [facility] Last Admin: 08/12/16 08:56 Dose: 1 tab Pantoprazole Sodium (Protonix Ec Tab) 40 mg PO DAILY [facility] Last Admin: 08/12/16 08:58 Dose: 40 mg Saccharomyces Boulardii (Florastor) 250 mg PO BID [facility] Last Admin: 08/12/16 08:56 Dose: 250 mg - Labs Labs: 08/12/16 05:30 08/12/16 05:30 - Constitutional Appears: In Acute Distress, Chronically Ill - Head Exam Head Exam: NORMAL INSPECTION, NORMOCEPHALIC - Eye Exam Eye Exam: EOMI, Normal appearance Pupil Exam: NORMAL ACCOMODATION - ENT Exam ENT Exam: Mucous Membranes Dry, Normal External Ear Exam - Neck Exam Neck Exam: Full ROM. absent: Meningismus - Respiratory Exam Respiratory Exam: Rales, Rhonchi, Respiratory Distress, decrease BS, no wheezing Additional comments: On High Flow Oxygen - Cardiovascular Exam Cardiovascular Exam: REGULAR RHYTHM, +S1, +S2 - GI/Abdominal Exam GI & Abdominal Exam: Soft, Normal Bowel Sounds. absent: Tenderness - Extremities Exam Extremities Exam: +++Pedal Edema. absent: Calf Tenderness Additional comments: chronic stasis skin changes decrease peripheral pulses , bilat dusky toes - Back Exam Back Exam: Full ROM. absent: CVA tenderness (L), CVA tenderness (R) - Neurological Exam Neurological Exam: CN II-XII Intact, Oriented x3 Neuro motor strength exam: Left Upper Extremity: 5, Right Upper Extremity: 5, Left Lower Extremity: 5, Right Lower Extremity: 5 Additional comments: alert, sitted on chair - Psychiatric Exam Psychiatric exam: Flat Affect - Skin Skin Exam: Dry, Pallor, bruises on arms Assessment and Plan - Assessment and Plan (Free Text) Assessment: 66 year old female (PMHx: COPD, CHF, HTN, HLD, RA, Chronic LE Edema, MAT) presented to the ER via EMS with her with a chief complaint of SOB. Found to be in respiratory failure. Currently in ICU on High Flow Oxygen 35L/ 40% during the day and Bipap q hs 1. Acute on Chronic Respiratory Failure with Hypoxia and Hypercapnea likely sec to COPD and PNA on NIPPV - Bipap initially , now on Biap q hs and High Flow in am more alert today, sitted on chair ABG shows improvement in acidosis and hypercapnea however still with high CO2 level Pulm on consult - Dr Yusuf cont IV Solumedrol cont Xopenex neb tx cont IV abx (2) COPD exacerbation Consult Pulmonology Dr. Yusuf Solumedrol decreased to 30mg q 8 Xopenex 1.25 mg nebulizer Q8H Asmanex 220 mcg puff INH 1x/day Spiriva 18 mcg 2 PO INH of 1 capsule via Handihaler Device 1x/day (3) Bilateral pneumonia Chest X Ray 08/09/16 shows new RLL and STEPHEN infiltrates Azithromycin 500 mg IV Q24H ID consulted- Dr Cantor added IV Zosyn and d/c IV ceftriaxone Rapid Influenza: neg Sputum c/s: negative Legionella pending Mycoplasm IgM : neg (4)Hx of Multifocal Atrial Tachycardia and episode of A Fib ASA 81 mg PO 1x/day Metoprolol XL 50 mg PO 1x/day (4) Chronic CHF (congestive heart failure), Diastolic dysfunction/Pulm HTN Assessment and Plan: ECHO 04/20 : normal EF Metoprolol XL 50 mg PO 1x/day cont Lasix 40 mg bid (5) HTN (hypertension) Metoprolol XL 50 mg PO 1x/day (6) Hyperlipidemia Atorvastatin 10 mg PO QHS (7) GERD (gastroesophageal reflux disease) Omeprazole 20 mg PO 1x/day (8) Rheumatoid arthritis with poss Interstitial Lung Disease Methotrexate 15 mg PO 1x/day on Saturday Folic Acid 2 mg PO 2x/day Plaquenil 400 mg PO 1x/day CT of chest once pt is more stable (9) Peripheral Vascular Dis/Venous Insufficiency Vascular Sx on consult Art Doppler studies LE: decrease flow right more than left Neg DVT on LE Venous US cont ASA Lac-hydrin lotion fo dry skin LE (10) Prophylactic measure Lovenox 40 mg SC 1x/day for DVT Prophylaxis Omeprazole 20 mg PO 1x/day for GI Prophylaxis Florastor 250 mg PO 2x/day as patient has been placed on antibiotics for the Bilateral Lung Infiltrates MVI PO 1x/day Cholecalciferal 2,000 Units PO 1x/day
[2016-08-13] MEDS: methylPREDNISolone 30 MG in Sodium Chloride 0.9% 50 ML IVPB SCH ×4 (00:08→21:30)
[2016-08-13] MEDS: Piperacillin/Tazobact 3.375 GM in Sodium Chloride 0.9% 100 ML IVPB SCH ×3 (00:09→16:35)
[2016-08-13] MEDS: Ipratropium 0.02% Inhal Soln (0.5 mg/2.5 ml) UD IH SCH ×4 (01:01→19:12)
[2016-08-13] MEDS: Levalbuterol 1.25 MG/3 ML Inhal Soln UD INH SCH ×4 (01:01→19:13)
[2016-08-13 05:39] LABS: HEMATOCRIT 36.4 % (34.0-47.0); MEAN CELL VOLUME 105.4 fl (81.0-99.0); MEAN CORPUSCULAR HGB CONC 31.3 g/dL (33.0-37.0); RED CELL DISTRIBUTION WIDTH 17.4 % (11.5-14.5); WHITE BLOOD COUNT 8.1 K/uL (4.8-10.8)
[2016-08-13 05:44] LABS: BLOOD UREA NITROGEN 23 mg/dl (7-17); CALCIUM 9.2 mg/dL (8.4-10.2); CHLORIDE 92 mmol/L (98-107); GFR AFRICAN-AMERICAN > 60; GLUCOSE,RANDOM 118 mg/dL (65-105); POTASSIUM 4.5 MMOL/L (3.6-5.0); SODIUM 143 mmol/l (132-148)
[2016-08-13 06:04] LABS: CARBON DIOXIDE 45 mmol/L (22-30)
[2016-08-13] MEDS: acetaZOLAMIDE 500 mg SR Cap PO SCH (08:33)
[2016-08-13] MEDS: Mometasone 220 mcg/puff-14 puff Inh IH SCH ×2 (08:33→09:15)
[2016-08-13] MEDS: Enoxaparin 40 mg Syringe SC SCH (08:33)
[2016-08-13] MEDS: Saccharomyces Boulardi 250 mg Cap PO SCH ×2 (08:34→16:34)
[2016-08-13] MEDS: Pantoprazole 40 mg EC Tab PO SCH (08:35)
[2016-08-13] MEDS: Azithromycin 500 MG in Sodium Chloride 0.9% 250 ML IVPB SCH (08:40)
--- NOTE | 2016-08-13 08:40 | CP.PCM.PN ---
Subjective - Date & Time of Evaluation Date of Evaluation: 08/13/16 Time of Evaluation: 08:38 - Subjective Subjective: Seated in a bedside chair on nasal high flow oxygen. Appears comfortable at present. Awake, oriented, talkative, following commands. Using BiPAP ventilator overnight and high flow nasal for daytime with good outcome. TCO2 still in the mid 40's, remainder of electrolytes are okay. CBC has been stable w/o leukocytosis. Vital signs have been stable w/o any febrile spikes. She does experience not infrequent arousals from sleep at home (?EMANI). Dependant edema +, dependant rubor with mild peripheral cyanosis of her toes. Speech is fluent, moving all 4 extremities, no focal motor weakness. Neck is supple and trachea midline. Increased AP diameter of thorax w/o dullness to percussion. Breath sounds are diminished bilaterally, markedly so. E phase remains slightly prolonged w/o audible wheezing. Scattered dry basal rales posteriorly, no bronchial breath sounds. Heart sounds are very distant, rhythm appears regular. Will continue to use BiPAP ventilation overnight; settings 14/6/16/35%. Will trial regular nasal canula this morning at 3LPM. High flow on standby. Solumedrol reduced again, now 30MG Q12h. Continue antibiotic therapy. Will consider D/C tomorrow (5days). Continue same aerosol therapy. I don't think she has sufficient inspiratory force and would be unable to breath hold for DPI. Physical therapy eval, bedside cammode use, may be transferred out of ICU to telemetry. If she remains stable, would consider TCU by the next day. Will try to obtain portable O2 concentrator for outpatient use. Would benefit from sleep study; maybe at home testing if possible. The above may be a moot point since it is likely she will be discharged with home BiPAP. Objective - Vital Signs/Intake and Output Vital Signs (last 24 hours): Temp Pulse Resp BP Pulse Ox 97.8 F 63 18 113/53 L 97 08/13/16 04:00 08/13/16 06:00 08/13/16 06:00 08/13/16 06:00 08/13/16 06:00 Intake and Output: 08/12/16 08/13/16 23:59 11:59 Intake Total 800 150 Output Total 200 200 Balance 600 -50 - Medications Medications: Current Medications Acetazolamide (Diamox Sequels 500 Mg Sr Cap) 500 mg PO DAILY [facility] Last Admin: 08/13/16 08:33 Dose: 500 mg Aspirin (Aspirin Chewable) 81 mg PO DAILY [facility] Last Admin: 08/13/16 08:33 Dose: 81 mg Atorvastatin Calcium (Lipitor) 10 mg PO HS [facility] Last Admin: 08/12/16 21:05 Dose: 10 mg Cholecalciferol (Vitamin D) 2,000 iu PO DAILY [facility] Last Admin: 08/13/16 08:36 Dose: 2,000 iu Enoxaparin Sodium (Lovenox) 40 mg SC DAILY [facility] PRN Reason: Protocol Last Admin: 08/13/16 08:33 Dose: 40 mg Fluticasone Propionate (Flonase) 2 spr KEVIN DAILY [facility] Last Admin: 08/13/16 08:33 Dose: 2 spr Folic Acid (Folic Acid) 2 mg PO BID [facility] Last Admin: 08/13/16 08:34 Dose: 2 mg Furosemide (Lasix) 40 mg PO BID [facility] Last Admin: 08/12/16 16:37 Dose: 40 mg Gabapentin (Neurontin) 100 mg PO DAILY [facility] Last Admin: 08/13/16 08:35 Dose: 100 mg Gabapentin (Neurontin) 300 mg PO HS [facility] Last Admin: 08/12/16 21:04 Dose: 300 mg Hydroxychloroquine Sulfate (Plaquenil) 400 mg PO DAILY [facility] Last Admin: 08/13/16 08:36 Dose: 400 mg Azithromycin 500 mg/ Sodium (Chloride) 250 mls @ 250 mls/hr IVPB DAILY [facility] Last Admin: 08/12/16 09:01 Dose: 250 mls/hr Piperacillin Sod/Tazobactam (Sod 3.375 gm/ Sodium Chloride) 100 mls @ 100 mls/ hr IVPB Q8 [facility] Last Admin: 08/13/16 00:09 Dose: 100 mls/hr Methylprednisolone 30 mg/ (Sodium Chloride) 50.48 mls @ 100 mls/hr IVPB Q12 [facility] Ipratropium [place] (Atrovent) 0.5 mg IH RQ6 [facility] Last Admin: 08/13/16 07:59 Dose: 0.5 mg Lactic Acid (Lac-Hydrin 12% Lotion (225 G)) 1 applic TOP TID [facility] Last Admin: 08/13/16 08:34 Dose: 1 applic Levalbuterol HCl (Xopenex) 1.25 mg INH RQ6 [facility] Last Admin: 08/13/16 08:01 Dose: 1.25 mg Methotrexate (Methotrexate) 15 mg PO SAT [facility] PRN Reason: Protocol Last Admin: 08/11/16 10:31 Dose: 15 mg Metoprolol Succinate (Toprol Xl) 50 mg PO DAILY [facility] Last Admin: 08/12/16 09:02 Dose: 50 mg Mometasone Furoate (Asmanex Twisthaler 220 Mcg) 1 puff IH DAILY [facility] Last Admin: 08/13/16 08:33 Dose: 1 puff Multivitamins/Minerals (Therapeutic-M Tab) 1 tab PO DAILY [facility] Last Admin: 08/12/16 08:56 Dose: 1 tab Pantoprazole Sodium (Protonix Ec Tab) 40 mg PO DAILY [facility] Last Admin: 08/13/16 08:35 Dose: 40 mg Saccharomyces Boulardii (Florastor) 250 mg PO BID [facility] Last Admin: 08/13/16 08:34 Dose: 250 mg - Labs Labs: 08/13/16 04:30 08/13/16 04:30 Assessment and Plan (1) Acute on chronic respiratory failure with hypoxia and hypercapnia Status: Acute (2) COPD (chronic obstructive pulmonary disease) Status: Chronic (3) Atrial fibrillation Status: Acute (4) Leg edema Status: Chronic (5) Rheumatoid arthritis Status: Chronic (6) Pulmonary hypertension Status: Chronic
--- NOTE | 2016-08-13 11:00 | CP.PCM.PN ---
Subjective - Date & Time of Evaluation Date of Evaluation: 08/13/16 Time of Evaluation: 16:00 - Subjective Subjective: ID Note- Pt. seen and examined today on tele floor. Pt. was just transferred out of the ICU to step down unit. She states she feels better and is breathing more comfortably and less cough. denies any fever. Sitting up in chair now. Objective - Vital Signs/Intake and Output Vital Signs (last 24 hours): Temp Pulse Resp BP Pulse Ox 97.5 F L 70 18 112/65 96 08/13/16 08:00 08/13/16 08:00 08/13/16 08:00 08/13/16 08:39 08/13/16 08:00 Intake and Output: 08/13/16 08/13/16 06:59 18:59 Intake Total 200 Output Total 400 Balance -200 - Medications Medications: Current Medications Acetazolamide (Diamox Sequels 500 Mg Sr Cap) 500 mg PO DAILY [facility] Last Admin: 08/13/16 08:33 Dose: 500 mg Aspirin (Aspirin Chewable) 81 mg PO DAILY [facility] Last Admin: 08/13/16 08:33 Dose: 81 mg Atorvastatin Calcium (Lipitor) 10 mg PO HS [facility] Last Admin: 08/12/16 21:05 Dose: 10 mg Cholecalciferol (Vitamin D) 2,000 iu PO DAILY [facility] Last Admin: 08/13/16 08:36 Dose: 2,000 iu Enoxaparin Sodium (Lovenox) 40 mg SC DAILY [facility] PRN Reason: Protocol Last Admin: 08/13/16 08:33 Dose: 40 mg Fluticasone Propionate (Flonase) 2 spr KEVIN DAILY [facility] Last Admin: 08/13/16 08:33 Dose: 2 spr Folic Acid (Folic Acid) 2 mg PO BID [facility] Last Admin: 08/13/16 08:34 Dose: 2 mg Furosemide (Lasix) 40 mg PO BID [facility] Last Admin: 08/13/16 08:39 Dose: 40 mg Gabapentin (Neurontin) 100 mg PO DAILY [facility] Last Admin: 08/13/16 08:35 Dose: 100 mg Gabapentin (Neurontin) 300 mg PO HS [facility] Last Admin: 08/12/16 21:04 Dose: 300 mg Hydroxychloroquine Sulfate (Plaquenil) 400 mg PO DAILY [facility] Last Admin: 08/13/16 08:36 Dose: 400 mg Azithromycin 500 mg/ Sodium (Chloride) 250 mls @ 250 mls/hr IVPB DAILY [facility] Last Admin: 08/13/16 08:40 Dose: 250 mls/hr Piperacillin Sod/Tazobactam (Sod 3.375 gm/ Sodium Chloride) 100 mls @ 100 mls/ hr IVPB Q8 [facility] Last Admin: 08/13/16 08:41 Dose: 100 mls/hr Methylprednisolone 30 mg/ (Sodium Chloride) 50.48 mls @ 100 mls/hr IVPB Q12 [facility] Ipratropium [place] (Atrovent) 0.5 mg IH RQ6 [facility] Last Admin: 08/13/16 07:59 Dose: 0.5 mg Lactic Acid (Lac-Hydrin 12% Lotion (225 G)) 1 applic TOP TID [facility] Last Admin: 08/13/16 08:34 Dose: 1 applic Levalbuterol HCl (Xopenex) 1.25 mg INH RQ6 [facility] Last Admin: 08/13/16 08:01 Dose: 1.25 mg Methotrexate (Methotrexate) 15 mg PO SAT [facility] PRN Reason: Protocol Last Admin: 08/11/16 10:31 Dose: 15 mg Metoprolol Succinate (Toprol Xl) 50 mg PO DAILY [facility] Last Admin: 08/12/16 09:02 Dose: 50 mg Mometasone Furoate (Asmanex Twisthaler 220 Mcg) 1 puff IH DAILY [facility] Last Admin: 08/13/16 09:15 Dose: Not Given Multivitamins/Minerals (Therapeutic-M Tab) 1 tab PO DAILY [facility] Last Admin: 08/12/16 08:56 Dose: 1 tab Pantoprazole Sodium (Protonix Ec Tab) 40 mg PO DAILY [facility] Last Admin: 08/13/16 08:35 Dose: 40 mg Saccharomyces Boulardii (Florastor) 250 mg PO BID [facility] Last Admin: 08/13/16 08:34 Dose: 250 mg - Labs Labs: - Constitutional Appears: No Acute Distress - Head Exam Head Exam: ATRAUMATIC - Eye Exam Eye Exam: EOMI - Neck Exam Neck Exam: Full ROM - Respiratory Exam Additional comments: still has decreased breath sounds b/l but better air entry compared to previous exams no wheezing - Cardiovascular Exam Cardiovascular Exam: RRR, +S1, +S2 - GI/Abdominal Exam GI & Abdominal Exam: Soft, Normal Bowel Sounds Additional comments: NT, ND - Extremities Exam Additional comments: venous stasis dermatitis changes and edema - Neurological Exam Neurological Exam: Alert, Awake, Oriented x3 - Additional Findings Additional findings: Laboratory Results - last 72 hr 08/09/16 08/09/16 08/11/16 14:45 18:30 06:30 WBC 9.1 RBC 3.44 L Hgb 11.3 L Hct 35.6 MCV 103.4 H MCH 32.8 H MCHC 31.8 L RDW 17.0 H Plt Count 169 pCO2 pO2 HCO3 ABG pH ABG Total CO2 ABG O2 Saturation ABG O2 Content ABG Base Excess ABG Hemoglobin ABG Carboxyhemoglobin POC ABG HHb (Measured) ABG Methemoglobin ABG O2 Capacity [place] Test A-a O2 Difference Hgb O2 Saturation Vent Mode FiO2 Inspiratory BiPAP Expiratory BiPAP Crit Value Called To Crit Value Called By Crit Value Read Back Blood Gas Notified Time Sodium Potassium Chloride Carbon Dioxide Anion Gap BUN Creatinine Est GFR ( Amer) Est GFR (Non-Af Amer) Random Glucose Calcium Vitamin B12 Folate Urine Legionella Ag Not detected Mycoplasma pneumon IgG 3.32 H Mycoplasma pneumon IgM 58 08/11/16 08/11/16 08/12/16 06:30 08:25 05:30 WBC 7.8 RBC 3.54 L Hgb 11.6 L Hct 37.4 MCV 105.5 H D MCH 32.7 H MCHC 31.0 L RDW 16.9 H Plt Count 153 pCO2 72 H* pO2 84 HCO3 39.5 H ABG pH 7.42 ABG Total CO2 48.9 H ABG O2 Saturation 98.2 H ABG O2 Content 15.5 ABG Base Excess 18.8 H ABG Hemoglobin 11.6 L ABG Carboxyhemoglobin 1.9 H POC ABG HHb (Measured) 1.7 ABG Methemoglobin 1.7 ABG O2 Capacity 15.8 L [place] Luis Test Yes A-a O2 Difference 111.0 Hgb O2 Saturation 94.7 L Vent Mode Bipap FiO2 40.0 Inspiratory BiPAP 16 Expiratory BiPAP 6 Crit Value Called To Dr oni bull Crit Value Called By Rt Crit Value Read Back Y Blood Gas Notified Time 832 Sodium 142 Potassium 3.7 Chloride 92 L Carbon Dioxide 44 H* Anion Gap 14 BUN 19 H Creatinine 0.9 Est GFR ( Amer) > 60 Est GFR (Non-Af Amer) > 60 Random Glucose 124 H Calcium 9.0 Vitamin B12 776 Folate > 20.0 Urine Legionella Ag Mycoplasma pneumon IgG Mycoplasma pneumon IgM 08/12/16 08/13/16 08/13/16 05:30 04:30 04:30 WBC 8.1 RBC 3.46 L Hgb 11.4 L Hct 36.4 MCV 105.4 H MCH 33.0 H MCHC 31.3 L RDW 17.4 H Plt Count 149 pCO2 pO2 HCO3 ABG pH ABG Total CO2 ABG O2 Saturation ABG O2 Content ABG Base Excess ABG Hemoglobin ABG Carboxyhemoglobin POC ABG HHb (Measured) ABG Methemoglobin ABG O2 Capacity [place] Test A-a O2 Difference Hgb O2 Saturation Vent Mode FiO2 Inspiratory BiPAP Expiratory BiPAP Crit Value Called To Crit Value Called By Crit Value Read Back Blood Gas Notified Time Sodium 143 143 Potassium 3.7 4.5 Chloride 92 L 92 L Carbon Dioxide > 40 H* 45 H* Anion Gap 15 11 BUN 21 H 23 H Creatinine 0.9 0.9 Est GFR ( Amer) > 60 > 60 Est GFR (Non-Af Amer) > 60 > 60 Random Glucose 115 H 118 H Calcium 9.1 9.2 Vitamin B12 Folate Urine Legionella Ag Mycoplasma pneumon IgG Mycoplasma pneumon IgM Microbiology 08/09/16 18:30 Sputum Gram Stain - Final 08/09/16 18:30 Sputum Sputum Culture - Final NORMAL SAPROPHYTIC KAREL 08/09/16 10:00 Blood-Venous Blood Culture - Preliminary NO GROWTH AFTER 4 DAYS 08/09/16 Unknown Naris MRSA Culture (Admit) - Final MRSA NOT DETECTED Accession No. : [id number] Patient Name / ID : SAROJ PARKASH / [id number] Exam Date : 08/13/2016 08:27:37 ( Approved ) Study Comment : Sex / Age : F / 66Y Creator : Amber Mcgee Dictator : Amber Mcgee Manager Code : Hair Designer : Amber Mcgee Approver2 : Report Date : 08/13/2016 12:32:58 My Comment : HISTORY: SOB COMPARISON: Comparison is made to the previous study dated 08/10/2016 FINDINGS: LUNGS: Hazy opacities at the lower [place] may represent atelectasis. The possibility of infiltrate at the left lower lobe is not totally excluded. Otherwise no significant interval change. PLEURA: Blunting of the right costophrenic angle versus artifact is again noted. CARDIOVASCULAR: Normal. OSSEOUS STRUCTURES: No significant abnormalities. VISUALIZED UPPER ABDOMEN: Normal. OTHER FINDINGS: None. IMPRESSION: Bibasilar opacities or small infiltrates are again seen . Otherwise no interval change. Assessment and Plan (1) Acute on chronic respiratory failure with hypoxia and hypercapnia Status: Acute (2) Bilateral pneumonia Status: Acute (3) History of CHF (congestive heart failure) Status: Chronic (4) Rheumatoid arthritis Status: Chronic (5) Leg edema Status: Chronic - Assessment and Plan (Free Text) Assessment: A/P- 66 year old female with RA on immunosuppressive meds, COPD, CHF, A.fib , venous stais presents with acute on chronic copd exacerbation with hypercapnea and b/l pneumonia. clinically better b/l infiltrates on cxr remain as per report. remains afebrile normal wbc count venous staisis . blood cx- negative sputum cx- negative urine Legionella AG- negative Mycoplasma IGM- negative 1. COPD exacerbation with hypercapnea 2.CHF 3.b/l LE venous stasis 4.RA plan- advise to continue on IV zosyn for broad spectrum gram neg coverage. day #5 advise to also continue pt. on zithromax.day #5 can be switched to po zithromax. can d/c empiric abx in 2 days. All above d/w patient and her and they verbalize full understanding of all above.
--- NOTE | 2016-08-13 11:39 | CP.CCUPN ---
CCU Subjective - Physician Review Subjective (Free Text): Patient awake, off BiPAP, on nasal cannula with 97% SPO2, sitting OOB in chair, no distress, looks well, denies any new complaints, no fever, no chest pain, events reviewed. CCU Objective - Vital Signs / Intake & Output Vital Signs (Last 4 hours): Vital Signs Temp Pulse Resp BP Pulse Ox 08/13/16 10:00 72 17 113/99 H 93 L 08/13/16 08:39 112/65 08/13/16 08:00 97.5 F L 70 18 112/66 96 Intake and Output (Last 8hrs): Intake & Output 08/12/16 08/13/16 08/13/16 22:59 06:59 14:59 Intake Total 800 150 930 Output Total 200 200 Balance 600 -50 930 Intake: Intake, Piggyback 550 150 450 Oral 250 480 Output: Urine 200 200 Urine, Voided 200 200 Other: # Voids Urine, Voided 1 1 1 # Bowel Movements 1 2 - Physical Exam Head: Positive for: Atraumatic, Normocephalic Pupils: Positive for: PERRL Conjunctiva: Positive for: Normal Mouth: Positive for: Moist Mucous Membranes Nose (External): Positive for: Atraumatic Neck: Positive for: Normal Range of Motion Respiratory/Chest: Positive for: Rhonchi Cardiovascular: Positive for: Irregular Rhythm Abdomen: Positive for: Normal Bowel Sounds Upper Extremity: Positive for: Normal Inspection Lower Extremity: Positive for: Edema Skin: Positive for: Warm, Dry Psychiatric: Positive for: Alert - Medications Active Medications: Active Medications Generic Name Dose Route Start Last Admin Trade Name [email or web address] PRN Reason Stop Dose Admin Acetazolamide 500 mg 08/10/16 09:00 08/13/16 08:33 Diamox Sequels 500 Mg Sr Cap PO 500 mg DAILY [facility] Administration Aspirin 81 mg 08/09/16 12:30 08/13/16 08:33 Aspirin Chewable PO 81 mg DAILY [facility] Administration Atorvastatin Calcium 10 mg 08/09/16 22:00 08/12/16 21:05 Lipitor PO 10 mg HS [facility] Administration Cholecalciferol 2,000 iu 08/10/16 09:00 08/13/16 08:36 Vitamin D PO 2,000 iu DAILY [facility] Administration Enoxaparin Sodium 40 mg 08/09/16 12:45 08/13/16 08:33 Lovenox SC 40 mg DAILY [facility] Administration Protocol Fluticasone Propionate 2 spr 08/10/16 09:00 08/13/16 08:33 Flonase KEVIN 2 spr DAILY [facility] Administration Folic Acid 2 mg 08/09/16 17:00 08/13/16 08:34 Folic Acid PO 2 mg BID [facility] Administration Furosemide 40 mg 08/09/16 17:00 08/13/16 08:39 Lasix PO 40 mg BID [facility] Administration Gabapentin 100 mg 08/10/16 09:00 08/13/16 08:35 Neurontin PO 100 mg DAILY [facility] Administration Gabapentin 300 mg 08/09/16 22:00 08/12/16 21:04 Neurontin PO 300 mg HS [facility] Administration Hydroxychloroquine Sulfate 400 mg 08/10/16 09:00 08/13/16 08:36 Plaquenil PO 400 mg DAILY [facility] Administration Azithromycin 500 mg/ Sodium 250 mls @ 250 mls/hr 08/10/16 09:00 08/13/16 08: 40 Chloride IVPB 250 mls/hr DAILY [facility] Administration Piperacillin Sod/Tazobactam 100 mls @ 100 mls/hr 08/09/16 19:00 08/13/16 08: 41 Sod 3.375 gm/ Sodium Chloride IVPB 100 mls/hr Q8 [facility] Administration Methylprednisolone 30 mg/ 50.48 mls @ 100 mls/hr 08/13/16 09:00 Sodium Chloride IVPB Q12 [facility] Ipratropium [place] 0.5 mg 08/10/16 14:00 08/13/16 07:59 Atrovent IH 0.5 mg RQ6 [facility] Administration Lactic Acid 1 applic 08/12/16 13:00 08/13/16 08:34 Lac-Hydrin 12% Lotion (225 G) TOP 1 applic TID BR[facility] Administration Levalbuterol HCl 1.25 mg 08/10/16 14:00 08/13/16 08:01 Xopenex INH 1.25 mg RQ6 [facility] Administration Methotrexate 15 mg 08/11/16 09:00 08/11/16 10:31 Methotrexate PO 15 mg SAT BR[facility] Administration Protocol Metoprolol Succinate 50 mg 08/10/16 09:00 08/12/16 09:02 Toprol Xl PO 50 mg DAILY [facility] Administration Mometasone Furoate 1 puff 08/09/16 12:30 08/13/16 09:15 Asmanex Twisthaler 220 Mcg IH Not Given DAILY [facility] Multivitamins/Minerals 1 tab 08/09/16 12:30 08/12/16 08:56 Therapeutic-M Tab PO 1 tab DAILY [facility] Administration Pantoprazole Sodium 40 mg 08/09/16 12:30 08/13/16 08:35 Protonix Ec Tab PO 40 mg DAILY [facility] Administration Saccharomyces Boulardii 250 mg 08/09/16 17:00 08/13/16 08:34 Florastor PO 250 mg BID BR[facility] Administration - Patient Studies Lab Studies: Microbiology Studies 08/09/16 18:30 Gram Stain - Final Sputum Sputum Culture - Preliminary No growth. Lab Studies 08/13/16 08/13/16 08/09/16 Range/Units 04:30 04:30 18:30 WBC 8.1 (4.8-10.8) K/uL RBC 3.46 L (3.80-5.20) Mil/uL Hgb 11.4 L (12.0-16.0) g/dL Hct 36.4 (34.0-47.0) % MCV 105.4 H (81.0-99.0) fl MCH 33.0 H (27.0-31.0) pg MCHC 31.3 L (33.0-37.0) g/dL RDW 17.4 H (11.5-14.5) % Plt Count 149 (130-400) K/uL Sodium 143 (132-148) mmol/l Potassium 4.5 (3.6-5.0) MMOL/L Chloride 92 L (98-107) mmol/L Carbon Dioxide 45 H* (22-30) mmol/L Anion Gap 11 (10-20) BUN 23 H (7-17) mg/dl Creatinine 0.9 (0.7-1.2) mg/dL Est GFR ( Amer) > 60 Est GFR (Non-Af Amer) > 60 Random Glucose 118 H (65-105) mg/dL Calcium 9.2 (8.4-10.2) mg/dL Urine Legionella Ag Not detected (Not Detected) Laboratory Results - last 24 hr 08/09/16 08/13/16 08/13/16 18:30 04:30 04:30 WBC 8.1 RBC 3.46 L Hgb 11.4 L Hct 36.4 MCV 105.4 H MCH 33.0 H MCHC 31.3 L RDW 17.4 H Plt Count 149 Sodium 143 Potassium 4.5 Chloride 92 L Carbon Dioxide 45 H* Anion Gap 11 BUN 23 H Creatinine 0.9 Est GFR ( Amer) > 60 Est GFR (Non-Af Amer) > 60 Random Glucose 118 H Calcium 9.2 Urine Legionella Ag Not detected Review of Systems - Review of Systems All systems: reviewed and no additional remarkable complaints except - Cardiovascular Cardiovascular: absent: Chest Pain, Chest Pain at Rest, Chest Pain with Activity - Respiratory Respiratory: Dyspnea on Exertion. absent: Cough Critical Care Progress Note - Ventilator Checklist Head of Bed 30 Degrees: Yes - Extremities/Vascular Does the Patient have a Central Venous Catheter?: No Does the Patient need a Central Venous Catheter?: No Does the Patient have a [place] Catheter?: No - Prophylaxis GI Prophylaxis GI: PPI - Prophylaxis DVT Prophylaxis DVT: Lovenox - Nutrition Nutrition: Nutrition Category Date Time Status Heart Healthy Diet [DIET] Diets 08/09/16 Dinner Active Assessment/Plan - Assessment and Plan (Free Text) Assessment: Acute Hypercapneic and Hypoxemic resp failure 2 COPD exacerbation and Pneumonia ; CHF with diastolic dysfx; Peripheral arterial disease; Paroxysmal Atrial Fib with controlled VR Plan: - See orders - BIPAP as needed during overnight period. - Steroids on wean regimen as per Pulm. - Empiric course of abx noted. CXR no worse. - Lasix BID for effusions and leg edema - Stable for Tele bed.
--- NOTE | 2016-08-13 12:38 | RAD ---
HISTORY: SOB COMPARISON: Comparison is made to the previous study dated 08/10/2016 FINDINGS: LUNGS: Hazy opacities at the lower [place] may represent atelectasis. The possibility of infiltrate at the left lower lobe is not totally excluded. Otherwise no significant interval change. PLEURA: Blunting of the right costophrenic angle versus artifact is again noted. CARDIOVASCULAR: Normal. OSSEOUS STRUCTURES: No significant abnormalities. VISUALIZED UPPER ABDOMEN: Normal. OTHER FINDINGS: None. IMPRESSION: Bibasilar opacities or small infiltrates are again seen . Otherwise no interval change.
[2016-08-13] MEDS: Multivitamin With Minerals Tab PO SCH (12:53)
[2016-08-13] MEDS: Metoprolol Succinate 50 mg XL Tab PO SCH (12:53)
--- NOTE | 2016-08-13 14:57 | CP.PCM.PN ---
Subjective - Date & Time of Evaluation Date of Evaluation: 08/13/16 Time of Evaluation: 14:30 - Subjective Subjective: Patient seen and examined bedside. Sitting in chair ,on 3 L O2 via NC saturating 96 % . No acute issues overnight. Denies any CP. Feels better. Tolerating BIPAP overnight and 3 L O2 vi aNC at present. Edema to lower extremities better BP 110/71 HR 69 WBC 8 Hgb 11.4 Objective - Vital Signs/Intake and Output Vital Signs (last 24 hours): Temp Pulse Resp BP Pulse Ox 97.7 F 69 22 110/71 96 08/13/16 12:00 08/13/16 12:00 08/13/16 12:00 08/13/16 12:00 08/13/16 12:00 Intake and Output: 08/13/16 08/13/16 06:59 18:59 Intake Total 200 930 Output Total 400 Balance -200 930 - Medications Medications: Current Medications Acetazolamide (Diamox Sequels 500 Mg Sr Cap) 500 mg PO DAILY [facility] Last Admin: 08/13/16 08:33 Dose: 500 mg Aspirin (Aspirin Chewable) 81 mg PO DAILY [facility] Last Admin: 08/13/16 08:33 Dose: 81 mg Atorvastatin Calcium (Lipitor) 10 mg PO HS [facility] Last Admin: 08/12/16 21:05 Dose: 10 mg Cholecalciferol (Vitamin D) 2,000 iu PO DAILY [facility] Last Admin: 08/13/16 08:36 Dose: 2,000 iu Enoxaparin Sodium (Lovenox) 40 mg SC DAILY [facility] PRN Reason: Protocol Last Admin: 08/13/16 08:33 Dose: 40 mg Fluticasone Propionate (Flonase) 2 spr KEVIN DAILY [facility] Last Admin: 08/13/16 08:33 Dose: 2 spr Folic Acid (Folic Acid) 2 mg PO BID [facility] Last Admin: 08/13/16 08:34 Dose: 2 mg Furosemide (Lasix) 40 mg PO BID [facility] Last Admin: 08/13/16 08:39 Dose: 40 mg Gabapentin (Neurontin) 100 mg PO DAILY [facility] Last Admin: 08/13/16 08:35 Dose: 100 mg Gabapentin (Neurontin) 300 mg PO HS [facility] Last Admin: 08/12/16 21:04 Dose: 300 mg Hydroxychloroquine Sulfate (Plaquenil) 400 mg PO DAILY [facility] Last Admin: 08/13/16 08:36 Dose: 400 mg Azithromycin 500 mg/ Sodium (Chloride) 250 mls @ 250 mls/hr IVPB DAILY [facility] Last Admin: 08/13/16 08:40 Dose: 250 mls/hr Piperacillin Sod/Tazobactam (Sod 3.375 gm/ Sodium Chloride) 100 mls @ 100 mls/ hr IVPB Q8 [facility] Last Admin: 08/13/16 08:41 Dose: 100 mls/hr Methylprednisolone 30 mg/ (Sodium Chloride) 50.48 mls @ 100 mls/hr IVPB Q12 [facility] Last Admin: 08/13/16 12:52 Dose: Not Given Ipratropium [place] (Atrovent) 0.5 mg IH RQ6 [facility] Last Admin: 08/13/16 13:33 Dose: 0.5 mg Lactic Acid (Lac-Hydrin 12% Lotion (225 G)) 1 applic TOP TID [facility] Last Admin: 08/13/16 12:53 Dose: 1 applic Levalbuterol HCl (Xopenex) 1.25 mg INH RQ6 [facility] Last Admin: 08/13/16 13:32 Dose: 1.25 mg Methotrexate (Methotrexate) 15 mg PO SAT [facility] PRN Reason: Protocol Last Admin: 08/11/16 10:31 Dose: 15 mg Metoprolol Succinate (Toprol Xl) 50 mg PO DAILY [facility] Last Admin: 08/13/16 12:53 Dose: 50 mg Mometasone Furoate (Asmanex Twisthaler 220 Mcg) 1 puff IH DAILY [facility] Last Admin: 08/13/16 09:15 Dose: Not Given Multivitamins/Minerals (Therapeutic-M Tab) 1 tab PO DAILY [facility] Last Admin: 08/13/16 12:53 Dose: 1 tab Pantoprazole Sodium (Protonix Ec Tab) 40 mg PO DAILY [facility] Last Admin: 08/13/16 08:35 Dose: 40 mg Saccharomyces Boulardii (Florastor) 250 mg PO BID [facility] Last Admin: 08/13/16 08:34 Dose: 250 mg - Labs Labs: 08/13/16 04:30 08/13/16 04:30 - Constitutional Appears: Non-toxic, No Acute Distress, Chronically Ill, Other (obese) - Head Exam Head Exam: ATRAUMATIC, NORMAL INSPECTION, NORMOCEPHALIC - Eye Exam Eye Exam: EOMI, Normal appearance, PERRL Pupil Exam: NORMAL ACCOMODATION - ENT Exam ENT Exam: Mucous Membranes Moist, Normal Exam - Neck Exam Neck Exam: Normal Inspection - Respiratory Exam Respiratory Exam: Decreased Breath Sounds (bilaterally ), Prolonged Expiratory Phase, Rales (bibasilar ). absent: Rhonchi, Wheezes - Cardiovascular Exam Cardiovascular Exam: Irregular Rhythm, +S1, +S2. absent: JVD - GI/Abdominal Exam GI & Abdominal Exam: Soft, Normal Bowel Sounds. absent: Distended, Tenderness, Rebound - Rectal Exam Rectal Exam: Deferred - Extremities Exam Extremities Exam: Pedal Edema (2 + pedal edema with chronic venous stasis) - Neurological Exam Neurological Exam: Alert, Awake, CN II-XII Intact, Oriented x3 - Psychiatric Exam Psychiatric exam: Normal Affect - Skin Skin Exam: Dry, Normal Color, Warm Assessment and Plan - Assessment and Plan (Free Text) Assessment: 66 year old female (PMHx: COPD, CHF, HTN, HLD, RA, Chronic LE Edema, MAT) presented to the ER via EMS with her with a chief complaint of SOB. Found to be in respiratory failure. Currently in ICU on 3 L O2 via Nc and doing well.improved 1. Acute on Chronic Respiratory Failure with Hypoxia and Hypercapnea likely sec to COPD and PNA improved Placed on 3 L O2 via NC and saturating 96 %. continue Bipap at night Pulmonary following closely, Dr. Yusuf jason IV solumedrol to 30 mg IV q12 Continue Zosyn and Zithromax IV cont Xopenex neb tx Promote ambulation with PT Patient will most likely benefit from DAHIANA/ TCU and home O2 2. COPD exacerbation improved Pulmonology Dr. Yusuf consulted and following tappered Solumedrol to 30mg Q12 Continue Xopenex ,Asmanex and Spiriva 3. Bilateral pneumonia Chest X Ray 08/09/16 shows new RLL and STEPHEN infiltrates Continue Zosyn and Zithromax IV ID consulted- Dr Cantor Rapid Influenza: neg Sputum c/s: negative Legionella pending Mycoplasm IgM : neg 4.Hx of Multifocal Atrial Tachycardia and episode of A Fib on ASA 81 mg and Metoprolol 5. Chronic CHF (congestive heart failure), Diastolic dysfunction/Pulm HTN stable ECHO 04/20 : normal EF Metoprolol XL 50 mg PO 1x/day cont Lasix 40 mg bid 6. HTN (hypertension) controlled on Metoprolol XL 50 mg PO QD 7. Hyperlipidemia Atorvastatin 10 mg PO QHS 8. GERD (gastroesophageal reflux disease) Omeprazole 20 mg PO 1x/day 9. Rheumatoid arthritis with Interstitial Lung Disease Methotrexate 15 mg PO 1x/day on Saturday Folic Acid 2 mg PO 2x/day Plaquenil 400 mg PO 1x/day CT of chest once pt is more stable 10. Peripheral Vascular Dis/Venous Insufficiency Vascular Sx on consult Art Doppler studies LE: decrease flow right more than left Neg DVT on LE Venous US cont ASA Lac-hydrin lotion fo dry skin LE 11. Prophylactic measure Lovenox 40 mg SC 1x/day for DVT Prophylaxis Omeprazole 20 mg PO 1x/day for GI Prophylaxis Florastor 250 mg PO 2x/day as patient has been placed on antibiotics for the Bilateral Lung Infiltrates MVI PO 1x/day Cholecalciferal 2,000 Units PO 1x/day
[2016-08-14] MEDS: Ipratropium 0.02% Inhal Soln (0.5 mg/2.5 ml) UD IH SCH ×4 (01:01→19:02)
[2016-08-14] MEDS: Levalbuterol 1.25 MG/3 ML Inhal Soln UD INH SCH ×4 (01:02→19:02)
[2016-08-14] MEDS: Piperacillin/Tazobact 3.375 GM in Sodium Chloride 0.9% 100 ML IVPB SCH ×3 (01:06→16:33)
[2016-08-14 06:39] LABS: MEAN CELL VOLUME 105.1 fl (81.0-99.0); MEAN CORPUSCULAR HEMOGLOBIN 32.7 pg (27.0-31.0); MEAN CORPUSCULAR HGB CONC 31.1 g/dL (33.0-37.0); RED CELL DISTRIBUTION WIDTH 16.5 % (11.5-14.5); WHITE BLOOD COUNT 6.5 K/uL (4.8-10.8)
[2016-08-14 06:46] LABS: BLOOD UREA NITROGEN 21 mg/dl (7-17); CALCIUM 8.9 mg/dL (8.4-10.2); CHLORIDE 90 mmol/L (98-107); GFR AFRICAN-AMERICAN > 60; GLUCOSE,RANDOM 116 mg/dL (65-105); POTASSIUM 3.7 MMOL/L (3.6-5.0); SODIUM 143 mmol/l (132-148)
[2016-08-14 06:56] LABS: CARBON DIOXIDE 46 mmol/L (22-30)
[2016-08-14] MEDS: acetaZOLAMIDE 500 mg SR Cap PO SCH (08:38)
[2016-08-14] MEDS: methylPREDNISolone 30 MG in Sodium Chloride 0.9% 50 ML IVPB SCH ×2 (08:39→08:45)
[2016-08-14] MEDS: Enoxaparin 40 mg Syringe SC SCH (08:39)
[2016-08-14] MEDS: Saccharomyces Boulardi 250 mg Cap PO SCH ×2 (08:40→16:35)
[2016-08-14] MEDS: Multivitamin With Minerals Tab PO SCH (08:40)
[2016-08-14] MEDS: Metoprolol Succinate 50 mg XL Tab PO SCH ×3 (08:41→13:09)
[2016-08-14] MEDS: Pantoprazole 40 mg EC Tab PO SCH (08:42)
[2016-08-14] MEDS: Mometasone 220 mcg/puff-14 puff Inh IH SCH (08:42)
--- NOTE | 2016-08-14 09:09 | CP.PCM.PN ---
Subjective - Date & Time of Evaluation Date of Evaluation: 08/14/16 Time of Evaluation: 08:59 - Subjective Subjective: Patient was transferred to telemetry w/o incident. Interim entries in EMR reviewed. Has continued to use BiPAP ventilator overnight with good results. Labs suggest a metabolic alkalosis, hypochloremic, has developed. A followup CXR done yesterday offers no new information. Seated on EOB, mood is quite good. Eating breakfast, alert and oriented, conversant. Dependant edema is much less, chronic derm changes remain. Dependant rubor with dusky toes still present. Pharynx is pink, tongue is coated. Neck is supple and trachea midline. No dullness on chest percussion. Breath sounds are markedly diminished bilaterally. No audible wheezing is heard, rare dry basal rales posteriorly. Heart sounds are distant, rhythm is irregular, rate is controlled. Will reduce furosemide to 40 once daily. Continue acetazolamide 500 once daily. Solumedrol reduced to 40 once daily. Will ask PT for eval and recommendations. Will need to have BiPAP ventilation at home for nocturnal use. Will follow ID recommendations regarding antibiotic therapy. Objective - Vital Signs/Intake and Output Vital Signs (last 24 hours): Temp Pulse Resp BP Pulse Ox 98.5 F 55 L 20 99/62 L 98 08/14/16 05:17 08/14/16 08:41 08/14/16 05:17 08/14/16 08:41 08/14/16 05:17 Intake and Output: 08/13/16 08/14/16 23:59 11:59 Intake Total 480 550 Output Total 500 Balance 480 50 - Medications Medications: Current Medications Acetazolamide (Diamox Sequels 500 Mg Sr Cap) 500 mg PO DAILY [facility] Last Admin: 08/14/16 08:38 Dose: 500 mg Aspirin (Aspirin Chewable) 81 mg PO DAILY [facility] Last Admin: 08/14/16 08:42 Dose: 81 mg Atorvastatin Calcium (Lipitor) 10 mg PO HS [facility] Last Admin: 08/13/16 21:33 Dose: 10 mg Azithromycin (Zithromax) 500 mg PO DAILY [facility] Last Admin: 08/14/16 08:40 Dose: 500 mg Cholecalciferol (Vitamin D) 2,000 iu PO DAILY [facility] Last Admin: 08/14/16 08:41 Dose: 2,000 iu Enoxaparin Sodium (Lovenox) 40 mg SC DAILY [facility] PRN Reason: Protocol Last Admin: 08/14/16 08:39 Dose: 40 mg Fluticasone Propionate (Flonase) 2 spr KEVIN DAILY [facility] Last Admin: 08/14/16 08:40 Dose: 2 spr Folic Acid (Folic Acid) 2 mg PO BID [facility] Last Admin: 08/14/16 08:40 Dose: 2 mg Furosemide (Lasix) 40 mg PO DAILY [facility] Gabapentin (Neurontin) 100 mg PO DAILY [facility] Last Admin: 08/14/16 08:41 Dose: 100 mg Gabapentin (Neurontin) 300 mg PO HS [facility] Last Admin: 08/13/16 21:33 Dose: 300 mg Hydroxychloroquine Sulfate (Plaquenil) 400 mg PO DAILY [facility] Last Admin: 08/14/16 08:42 Dose: 400 mg Piperacillin Sod/Tazobactam (Sod 3.375 gm/ Sodium Chloride) 100 mls @ 100 mls/ hr IVPB Q8 [facility] Last Admin: 08/14/16 08:42 Dose: 100 mls/hr Methylprednisolone 30 mg/ (Sodium Chloride) 50.48 mls @ 100 mls/hr IVPB DAILY [facility] Ipratropium [place] (Atrovent) 0.5 mg IH RQ6 [facility] Last Admin: 08/14/16 07:36 Dose: 0.5 mg Lactic Acid (Lac-Hydrin 12% Lotion (225 G)) 1 applic TOP TID [facility] Last Admin: 08/14/16 08:38 Dose: 1 applic Levalbuterol HCl (Xopenex) 1.25 mg INH RQ6 [facility] Last Admin: 08/14/16 07:37 Dose: 1.25 mg Methotrexate (Methotrexate) 15 mg PO SAT [facility] PRN Reason: Protocol Last Admin: 08/11/16 10:31 Dose: 15 mg Metoprolol Succinate (Toprol Xl) 50 mg PO DAILY [facility] Last Admin: 08/14/16 08:41 Dose: 50 mg Mometasone Furoate (Asmanex Twisthaler 220 Mcg) 1 puff IH DAILY [facility] Last Admin: 08/14/16 08:42 Dose: 1 puff Multivitamins/Minerals (Therapeutic-M Tab) 1 tab PO DAILY [facility] Last Admin: 08/14/16 08:40 Dose: 1 tab Pantoprazole Sodium (Protonix Ec Tab) 40 mg PO DAILY [facility] Last Admin: 08/14/16 08:42 Dose: 40 mg Saccharomyces Boulardii (Florastor) 250 mg PO BID [facility] Last Admin: 08/14/16 08:40 Dose: 250 mg - Labs Labs: 08/14/16 06:00 08/14/16 06:00 Assessment and Plan (1) Acute on chronic respiratory failure with hypoxia and hypercapnia Status: Acute (2) COPD (chronic obstructive pulmonary disease) Status: Chronic (3) Atrial fibrillation Status: Acute (4) Leg edema Status: Chronic (5) Rheumatoid arthritis Status: Chronic (6) Pulmonary hypertension Status: Chronic
--- NOTE | 2016-08-14 12:13 | CP.PCM.PN ---
Subjective - Date & Time of Evaluation Date of Evaluation: 08/14/16 Time of Evaluation: 11:00 - Subjective Subjective: Patient seen and examined bedside. Sitting in chair ,on FIO2 40 % via NC saturating 97 % . No acute issues overnight. Denies any CP. Tolerating BIPAP overnight Edema to lower extremities better but still present Still with decreased air entry bilaterally and prolonged expiratory phase BP99/62 HR 55 afebrile WBC 6.5 Hgb 11.8 CO2 46 Objective - Vital Signs/Intake and Output Vital Signs (last 24 hours): Temp Pulse Resp BP Pulse Ox 97.8 F 55 L 18 99/62 L 97 08/14/16 08:00 08/14/16 08:41 08/14/16 08:00 08/14/16 08:41 08/14/16 08:00 Intake and Output: 08/14/16 08/14/16 06:59 18:59 Intake Total 550 Output Total 500 Balance 50 - Medications Medications: Current Medications Acetazolamide (Diamox Sequels 500 Mg Sr Cap) 500 mg PO DAILY [facility] Last Admin: 08/14/16 08:38 Dose: 500 mg Aspirin (Aspirin Chewable) 81 mg PO DAILY [facility] Last Admin: 08/14/16 08:42 Dose: 81 mg Atorvastatin Calcium (Lipitor) 10 mg PO HS [facility] Last Admin: 08/13/16 21:33 Dose: 10 mg Azithromycin (Zithromax) 500 mg PO DAILY [facility] Last Admin: 08/14/16 08:40 Dose: 500 mg Cholecalciferol (Vitamin D) 2,000 iu PO DAILY [facility] Last Admin: 08/14/16 08:41 Dose: 2,000 iu Enoxaparin Sodium (Lovenox) 40 mg SC DAILY [facility] PRN Reason: Protocol Last Admin: 08/14/16 08:39 Dose: 40 mg Fluticasone Propionate (Flonase) 2 spr KEVIN DAILY [facility] Last Admin: 08/14/16 08:40 Dose: 2 spr Folic Acid (Folic Acid) 2 mg PO BID [facility] Last Admin: 08/14/16 08:40 Dose: 2 mg Furosemide (Lasix) 40 mg PO DAILY [facility] Gabapentin (Neurontin) 100 mg PO DAILY [facility] Last Admin: 08/14/16 08:41 Dose: 100 mg Gabapentin (Neurontin) 300 mg PO HS [facility] Last Admin: 08/13/16 21:33 Dose: 300 mg Hydroxychloroquine Sulfate (Plaquenil) 400 mg PO DAILY [facility] Last Admin: 08/14/16 08:42 Dose: 400 mg Piperacillin Sod/Tazobactam (Sod 3.375 gm/ Sodium Chloride) 100 mls @ 100 mls/ hr IVPB Q8 [facility] Last Admin: 08/14/16 08:42 Dose: 100 mls/hr Methylprednisolone 30 mg/ (Sodium Chloride) 50.48 mls @ 100 mls/hr IVPB DAILY [facility] Ipratropium [place] (Atrovent) 0.5 mg IH RQ6 [facility] Last Admin: 08/14/16 07:36 Dose: 0.5 mg Lactic Acid (Lac-Hydrin 12% Lotion (225 G)) 1 applic TOP TID [facility] Last Admin: 08/14/16 08:38 Dose: 1 applic Levalbuterol HCl (Xopenex) 1.25 mg INH RQ6 [facility] Last Admin: 08/14/16 07:37 Dose: 1.25 mg Methotrexate (Methotrexate) 15 mg PO [facility] PRN Reason: Protocol Last Admin: 08/11/16 10:31 Dose: 15 mg Metoprolol Succinate (Toprol Xl) 50 mg PO DAILY [facility] Last Admin: 08/14/16 08:41 Dose: 50 mg Mometasone Furoate (Asmanex Twisthaler 220 Mcg) 1 puff IH DAILY [facility] Last Admin: 08/14/16 08:42 Dose: 1 puff Multivitamins/Minerals (Therapeutic-M Tab) 1 tab PO DAILY [facility] Last Admin: 08/14/16 08:40 Dose: 1 tab Pantoprazole Sodium (Protonix Ec Tab) 40 mg PO DAILY [facility] Last Admin: 08/14/16 08:42 Dose: 40 mg Saccharomyces Boulardii (Florastor) 250 mg PO BID [facility] Last Admin: 08/14/16 08:40 Dose: 250 mg - Labs Labs: 08/14/16 06:00 08/14/16 06:00 - Constitutional Appears: Non-toxic, Chronically Ill, Other (obese ) - Head Exam Head Exam: ATRAUMATIC, NORMAL INSPECTION, NORMOCEPHALIC - Eye Exam Eye Exam: Normal appearance, PERRL Pupil Exam: NORMAL ACCOMODATION - ENT Exam ENT Exam: Mucous Membranes Moist, Normal Exam - Neck Exam Neck Exam: Normal Inspection - Respiratory Exam Respiratory Exam: Accessory Muscle Use, Decreased Breath Sounds (bilaterally ), Prolonged Expiratory Phase, Rales (bibasilar ). absent: Rhonchi, Wheezes - Cardiovascular Exam Cardiovascular Exam: Irregular Rhythm, RRR, +S1, +S2. absent: JVD - GI/Abdominal Exam GI & Abdominal Exam: Soft, Normal Bowel Sounds. absent: Distended, Guarding, Tenderness, Rebound - Rectal Exam Rectal Exam: Deferred - Extremities Exam Extremities Exam: Pedal Edema (2 + bilaterally with chronic skin changes). absent: Calf Tenderness Additional comments: upper extremity multiple echymotic areas - Back Exam Back Exam: NORMAL INSPECTION - Neurological Exam Neurological Exam: Alert, Awake, CN II-XII Intact, Oriented x3 - Psychiatric Exam Psychiatric exam: Normal Affect - Skin Skin Exam: Dry Additional comments: upper extremity multiple echymotic areas thin and frail skin bilateral lower extremity chronic skin changes with erythema and seeping blisters Assessment and Plan - Assessment and Plan (Free Text) Assessment: 66 year old female (PMHx: COPD, CHF, HTN, HLD, RA, Chronic LE Edema, MAT) presented to the ER via EMS with her with a chief complaint of SOB. Found to be in respiratory failure. She was transferred to ICU , placed on Bipap and high flow O2 via NC ,treated with IV solumedrol tappering dose, Xopenex anD IV antibiotics. At present in telemetry , tolerating 3 L O2 via Nc during th eday and Bipap at night. 1. Acute on Chronic Respiratory Failure with Hypoxia and Hypercapnea likely sec to COPD and PNA improved Placed on 3 L O2 via NC and saturating 96 %. continue Bipap at night Pulmonary following closely, Dr. Yusuf tappered IV solumedrol to 30 mg IV daily Continue Zosyn and Zithromax IV cont Xopenex neb tx Promote ambulation with PT CT chest without contrast today CO@ 46. Continue Diamox daily will check ABG in RA and pulse oxymetry night time while sleeping. patient will benefit from Bipap at home Patient will most likely benefit from [facility]/ TCU but has not made a decision yet 2. COPD exacerbation improved Pulmonology Dr. Yusuf consulted and following tappered Solumedrol to 30mg daily Continue Xopenex ,Asmanex and Spiriva 3. Bilateral pneumonia Chest X Ray 08/09/16 shows new RLL and STEPHEN infiltrates Continue Zosyn and Zithromax IV ID consulted- Dr Cantor Rapid Influenza: neg Sputum c/s: negative Legionella pending Mycoplasm IgM : neg Will order Ct chest today 4.Hx of Multifocal Atrial Tachycardia and episode of A Fib on ASA 81 mg and Metoprolol 5. Chronic CHF (congestive heart failure), Diastolic dysfunction/Pulm HTN stable ECHO 04/20 : normal EF Metoprolol XL 50 mg PO 1x/day Decreased Lasix to 40 mg daily 6. HTN (hypertension) controlled on Metoprolol XL 50 mg PO QD 7. Hyperlipidemia Atorvastatin 10 mg PO QHS 8. GERD (gastroesophageal reflux disease) Omeprazole 20 mg PO 1x/day 9. Rheumatoid arthritis with Interstitial Lung Disease Methotrexate 15 mg PO 1x/day on Saturday Folic Acid 2 mg PO 2x/day Plaquenil 400 mg PO 1x/day CT of chest today 10. Peripheral Vascular Dis/Venous Insufficiency Vascular Sx on consult Art Doppler studies LE: decrease flow right more than left Neg DVT on LE Venous US cont ASA Lac-hydrin lotion fo dry skin LE 11. Prophylactic measure Lovenox 40 mg SC 1x/day for DVT Prophylaxis Omeprazole 20 mg PO 1x/day for GI Prophylaxis Florastor 250 mg PO 2x/day as patient has been placed on antibiotics for the Bilateral Lung Infiltrates MVI PO 1x/day Cholecalciferal 2,000 Units PO 1x/day
--- NOTE | 2016-08-14 18:56 | CT ---
PROCEDURE: CT Chest without contrast HISTORY: r/o pneumonia, interstitial lung disease COMPARISON: August 13, 2016. Single-view chest 10/21/2009 CT thorax TECHNIQUE: Contiguous axial images were obtained through the chest without intravenous contrast enhancement. Sagittal and coronal reconstructions were performed. Radiation dose (DLP): 703.94 mGy-cm. This CT exam was performed using one or more of the following dose reduction techniques: Automated exposure control, adjustment of the mA and/or kV according to patient size, and/or use of iterative reconstruction technique. FINDINGS: LUNGS: Partially necrotic spiculated left upper lobe mass measuring 4.4 x 4.8 cm. The mass abuts the mediastinum, it extends directly into the AP window region. Left hilar adenopathy noted. Despite the absence of intravenous contrast tumor likely invades the left pulmonary artery. Left Upper lobe bronchus is encased by tumor Atelectatic changes likely compressive atelectasis associate with small bilateral pleural effusions. The right pleural effusion tracks against the major fissure. Subcentimeter scar/spiculated mass right apex. MEDIASTINUM: Unremarkable thoracic aorta. No aneurysm. Normal sized heart. Main pulmonary artery unremarkable. No vascular congestion. No lymphadenopathy. PLEURA: No pleural fluid. No pneumothorax. BONES: No fracture. No destructive lesion. UPPER ABDOMEN: Grossly unremarkable. OTHER FINDINGS: None. IMPRESSION: 1. Necrotic spiculated irregular mass approaching 5 cm left upper lobe. Direct extension into the left mediastinum and hilum noted. 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 2. Small bilateral pleural effusions, compressive atelectasis noted. 3. Indeterminate finding in the right apex more likely to be scar than neoplasm.
[2016-08-15] MEDS: Piperacillin/Tazobact 3.375 GM in Sodium Chloride 0.9% 100 ML IVPB SCH ×3 (01:00→16:42)
[2016-08-15] MEDS: Levalbuterol 1.25 MG/3 ML Inhal Soln UD INH SCH ×4 (01:02→19:30)
[2016-08-15] MEDS: Ipratropium 0.02% Inhal Soln (0.5 mg/2.5 ml) UD IH SCH ×4 (01:02→19:30)
[2016-08-15 06:58] LABS: HEMATOCRIT 38.1 % (34.0-47.0); MEAN CELL VOLUME 105.6 fl (81.0-99.0); MEAN CORPUSCULAR HEMOGLOBIN 32.2 pg (27.0-31.0); MEAN CORPUSCULAR HGB CONC 30.5 g/dL (33.0-37.0); WHITE BLOOD COUNT 8.8 K/uL (4.8-10.8)
[2016-08-15 07:50] LABS: BLOOD UREA NITROGEN 20 mg/dl (7-17); CALCIUM 8.8 mg/dL (8.4-10.2); CHLORIDE 92 mmol/L (98-107); GFR AFRICAN-AMERICAN > 60; GLUCOSE,RANDOM 90 mg/dL (65-105); POTASSIUM 3.2 MMOL/L (3.6-5.0); SODIUM 143 mmol/l (132-148)
[2016-08-15 08:08] LABS: CARBON DIOXIDE 44 mmol/L (22-30)
[2016-08-15] MEDS: Mometasone 220 mcg/puff-14 puff Inh IH SCH (08:49)
[2016-08-15] MEDS: Metoprolol Succinate 50 mg XL Tab PO SCH (08:50)
[2016-08-15] MEDS: Saccharomyces Boulardi 250 mg Cap PO SCH ×2 (08:51→16:41)
[2016-08-15] MEDS: acetaZOLAMIDE 500 mg SR Cap PO SCH (08:52)
[2016-08-15] MEDS: Multivitamin With Minerals Tab PO SCH (08:52)
[2016-08-15] MEDS: Enoxaparin 40 mg Syringe SC SCH (08:53)
[2016-08-15] MEDS: Pantoprazole 40 mg EC Tab PO SCH (08:53)
[2016-08-15] MEDS: methylPREDNISolone 30 MG in Sodium Chloride 0.9% 50 ML IVPB SCH (08:56)
--- NOTE | 2016-08-15 10:43 | CP.PCM.CON ---
History of Present Illness - History of Present Illness History of Present Illness: Pt admitted with respiratory insufficiency chronic pulmonary disease. Pt with rate controlled atrial fibrillation , hemodynamically stable Past Patient History - Infectious Disease Hx of Infectious Diseases: None - Past Medical History & Family History Past Medical History?: Yes - Past Social History Smoking Status: Never Smoked Alcohol: None Drugs: Denies Home Situation {Lives}: With Family - CARDIAC Hx Cardia Arrhythmia: Yes (MAT) Hx Congestive Heart Failure: Yes Hx Hypercholesterolemia: Yes Hx Hypertension: Yes Hx Peripheral Edema: Yes - PULMONARY Hx Asthma: No Hx Chronic Obstructive Pulmonary Disease (COPD): Yes Hx Pneumonia: No - NEUROLOGICAL Hx Neurological Disorder: No - HEENT Hx HEENT Problems: No - RENAL Hx Chronic Kidney Disease: No - ENDOCRINE/METABOLIC Hx Endocrine Disorders: No - HEMATOLOGICAL/ONCOLOGICAL Hx Human Immunodeficiency Virus (HIV): No - INTEGUMENTARY Other/Comment: 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 - MUSCULOSKELETAL/RHEUMATOLOGICAL Hx Arthritis: Yes Hx Rheumatoid Arthritis: Yes - GASTROINTESTINAL Hx Gastrointestinal Disorders: No - GENITOURINARY/GYNECOLOGICAL Hx Genitourinary Disorders: No - PSYCHIATRIC Hx Psychophysiologic Disorder: No Hx Substance Use: No - SURGICAL HISTORY Hx Cholecystectomy: Yes - ANESTHESIA Hx Anesthesia: Yes Hx Anesthesia Reactions: No Hx Malignant Hyperthermia: No Meds Allergies/Adverse Reactions: Allergies Allergy/AdvReac Type Severity Reaction Status Date / Time iodine Allergy RASH Verified 08/09/16 10:16 shellfish derived Allergy RASH Verified 08/09/16 10:16 strawberry Allergy RASH Verified 08/09/16 10:16 - Medications Medications: Current Medications Acetazolamide (Diamox Sequels 500 Mg Sr Cap) 500 mg PO DAILY [facility] Last Admin: 08/15/16 08:52 Dose: 500 mg Aspirin (Aspirin Chewable) 81 mg PO DAILY [facility] Last Admin: 08/15/16 08:51 Dose: 81 mg Atorvastatin Calcium (Lipitor) 10 mg PO HS [facility] Last Admin: 08/14/16 21:39 Dose: 10 mg Azithromycin (Zithromax) 500 mg PO DAILY [facility] Last Admin: 08/15/16 08:51 Dose: 500 mg Cholecalciferol (Vitamin D) 2,000 iu PO DAILY [facility] Last Admin: 08/15/16 08:51 Dose: 2,000 iu Enoxaparin Sodium (Lovenox) 40 mg SC DAILY [facility] PRN Reason: Protocol Last Admin: 08/15/16 08:53 Dose: 40 mg Fluticasone Propionate (Flonase) 2 spr KEVIN DAILY [facility] Last Admin: 08/15/16 08:50 Dose: 2 spr Folic Acid (Folic Acid) 2 mg PO BID [facility] Last Admin: 08/15/16 08:50 Dose: 2 mg Furosemide (Lasix) 40 mg PO DAILY [facility] Last Admin: 08/15/16 08:51 Dose: 40 mg Gabapentin (Neurontin) 100 mg PO DAILY [facility] Last Admin: 08/15/16 08:50 Dose: 100 mg Gabapentin (Neurontin) 300 mg PO HS [facility] Last Admin: 08/14/16 21:39 Dose: 300 mg Hydroxychloroquine Sulfate (Plaquenil) 400 mg PO DAILY [facility] Last Admin: 08/15/16 08:50 Dose: 400 mg Piperacillin Sod/Tazobactam (Sod 3.375 gm/ Sodium Chloride) 100 mls @ 100 mls/ hr IVPB Q8 [facility] Last Admin: 08/15/16 08:52 Dose: 100 mls/hr Methylprednisolone 30 mg/ (Sodium Chloride) 50.48 mls @ 100 mls/hr IVPB DAILY [facility] Last Admin: 08/15/16 08:56 Dose: 100 mls/hr Ipratropium [place] (Atrovent) 0.5 mg IH RQ6 [facility] Last Admin: 08/15/16 07:35 Dose: 0.5 mg Lactic Acid (Lac-Hydrin 12% Lotion (225 G)) 1 applic TOP TID [facility] Last Admin: 08/15/16 08:52 Dose: 1 applic Levalbuterol HCl (Xopenex) 1.25 mg INH RQ6 [facility] Last Admin: 08/15/16 07:35 Dose: 1.25 mg Methotrexate (Methotrexate) 15 mg PO SAT [facility] PRN Reason: Protocol Last Admin: 08/11/16 10:31 Dose: 15 mg Metoprolol Succinate (Toprol Xl) 50 mg PO DAILY [facility] Last Admin: 08/15/16 08:50 Dose: 50 mg Mometasone Furoate (Asmanex Twisthaler 220 Mcg) 1 puff IH DAILY [facility] Last Admin: 08/15/16 08:49 Dose: 1 puff Multivitamins/Minerals (Therapeutic-M Tab) 1 tab PO DAILY [facility] Last Admin: 08/15/16 08:52 Dose: 1 tab Pantoprazole Sodium (Protonix Ec Tab) 40 mg PO DAILY [facility] Last Admin: 08/15/16 08:53 Dose: 40 mg Saccharomyces Boulardii (Florastor) 250 mg PO BID [facility] Last Admin: 08/15/16 08:51 Dose: 250 mg Results - Vital Signs Recent Vital Signs: Last Vital Signs Temp 97.8 F 08/15/16 09:00 Pulse 106 H 08/15/16 09:00 Resp 18 08/15/16 09:00 BP 109/75 08/15/16 09:00 Pulse Ox 93 L 08/15/16 09:00 - Labs Result Diagrams: 08/15/16 06:20 08/15/16 06:20 Labs: Laboratory Results - last 24 hr 08/15/16 08/15/16 06:20 06:20 WBC 8.8 RBC 3.60 L Hgb 11.6 L Hct 38.1 MCV 105.6 H MCH 32.2 H MCHC 30.5 L RDW 17.0 H Plt Count 143 Sodium 143 Potassium 3.2 L Chloride 92 L Carbon Dioxide 44 H* Anion Gap 10 BUN 20 H Creatinine 0.8 Est GFR ( Amer) > 60 Est GFR (Non-Af Amer) > 60 Random Glucose 90 Calcium 8.8 Assessment & Plan - Assessment and Plan (Free Text) Assessment: Unable to examine pt , as on commode. Respiratory status appears stable Pt not on full anticoagulation due medical comorbidities will defer to medical team if desire anticoagulation for stroke prevention in atrial fibrillation Continue Metoprolol no attempt at conversion to NSR given respiratory status
--- NOTE | 2016-08-15 11:21 | CP.PCM.PN ---
Subjective - Date & Time of Evaluation Date of Evaluation: 08/15/16 Time of Evaluation: 11:14 - Subjective Subjective: Discussed findings of CT with the patient and her . A large left suprahilar mass extending to the apex is seen which appears to encase the STEPHEN bronchus. Suspicion is high for neoplastic disease. Flexible bronchoscopy will be difficult with a fair amount of risk because of her underlying chronic lung disease. This should still be the first approach, and if unable to complete it, or if diagnosis is not made, then consider IR percutaneous needle bx. This second procedure is also with substantial risk because of her underlying lung disease. She has consented to bronchoscopy at this time after explaining in detail all the risks involved, including the possibility of endotracheal intubation. Procedure has been scheduled for 7:45 AM tomorrow. Enoxaparin is on hold, but she is also on ASA; a forceps biopsy will NOT be attempted; lavage, BAL, brush biopsy planned. Objective - Vital Signs/Intake and Output Vital Signs (last 24 hours): Temp Pulse Resp BP Pulse Ox 97.8 F 106 H 18 109/75 93 L 08/15/16 09:00 08/15/16 09:00 08/15/16 09:00 08/15/16 09:00 08/15/16 09:00 Intake and Output: 08/14/16 08/15/16 23:59 11:59 Intake Total 2740 Balance 2740 - Medications Medications: Current Medications Acetazolamide (Diamox Sequels 500 Mg Sr Cap) 500 mg PO DAILY [facility] Last Admin: 08/15/16 08:52 Dose: 500 mg Aspirin (Aspirin Chewable) 81 mg PO DAILY [facility] Last Admin: 08/15/16 08:51 Dose: 81 mg Atorvastatin Calcium (Lipitor) 10 mg PO HS [facility] Last Admin: 08/14/16 21:39 Dose: 10 mg Azithromycin (Zithromax) 500 mg PO DAILY [facility] Last Admin: 08/15/16 08:51 Dose: 500 mg Cholecalciferol (Vitamin D) 2,000 iu PO DAILY [facility] Last Admin: 08/15/16 08:51 Dose: 2,000 iu Enoxaparin Sodium (Lovenox) 40 mg SC DAILY [facility] PRN Reason: Protocol Last Admin: 08/15/16 08:53 Dose: 40 mg Fluticasone Propionate (Flonase) 2 spr KEVIN DAILY [facility] Last Admin: 08/15/16 08:50 Dose: 2 spr Folic Acid (Folic Acid) 2 mg PO BID [facility] Last Admin: 08/15/16 08:50 Dose: 2 mg Furosemide (Lasix) 40 mg PO DAILY [facility] Last Admin: 08/15/16 08:51 Dose: 40 mg Gabapentin (Neurontin) 100 mg PO DAILY [facility] Last Admin: 08/15/16 08:50 Dose: 100 mg Gabapentin (Neurontin) 300 mg PO HS [facility] Last Admin: 08/14/16 21:39 Dose: 300 mg Hydroxychloroquine Sulfate (Plaquenil) 400 mg PO DAILY [facility] Last Admin: 08/15/16 08:50 Dose: 400 mg Piperacillin Sod/Tazobactam (Sod 3.375 gm/ Sodium Chloride) 100 mls @ 100 mls/ hr IVPB Q8 [facility] Last Admin: 08/15/16 08:52 Dose: 100 mls/hr Methylprednisolone 30 mg/ (Sodium Chloride) 50.48 mls @ 100 mls/hr IVPB DAILY [facility] Last Admin: 08/15/16 08:56 Dose: 100 mls/hr Ipratropium [place] (Atrovent) 0.5 mg IH RQ6 [facility] Last Admin: 08/15/16 07:35 Dose: 0.5 mg Lactic Acid (Lac-Hydrin 12% Lotion (225 G)) 1 applic TOP TID [facility] Last Admin: 08/15/16 08:52 Dose: 1 applic Levalbuterol HCl (Xopenex) 1.25 mg INH RQ6 [facility] Last Admin: 08/15/16 07:35 Dose: 1.25 mg Methotrexate (Methotrexate) 15 mg PO [facility] PRN Reason: Protocol Last Admin: 08/11/16 10:31 Dose: 15 mg Metoprolol Succinate (Toprol Xl) 50 mg PO DAILY [facility] Last Admin: 08/15/16 08:50 Dose: 50 mg Mometasone Furoate (Asmanex Twisthaler 220 Mcg) 1 puff IH DAILY [facility] Last Admin: 08/15/16 08:49 Dose: 1 puff Multivitamins/Minerals (Therapeutic-M Tab) 1 tab PO DAILY [facility] Last Admin: 08/15/16 08:52 Dose: 1 tab Pantoprazole Sodium (Protonix Ec Tab) 40 mg PO DAILY [facility] Last Admin: 08/15/16 08:53 Dose: 40 mg Saccharomyces Boulardii (Florastor) 250 mg PO BID [facility] Last Admin: 08/15/16 08:51 Dose: 250 mg - Labs Labs: 08/15/16 06:20 08/15/16 06:20 Assessment and Plan (1) Acute on chronic respiratory failure with hypoxia and hypercapnia Status: Acute (2) COPD (chronic obstructive pulmonary disease) Status: Chronic (3) Atrial fibrillation Status: Acute (4) Leg edema Status: Chronic (5) Rheumatoid arthritis Status: Chronic (6) Pulmonary hypertension Status: Chronic
[2016-08-15 12:20] LABS: ABG ALLEN TEST YES; ARTERIAL BLOOD GAS HCO3 37.6 mmol/L (21-28); ARTERIAL BLOOD GAS O2 CAPACITY 17.2 mL/dL (16-24); ARTERIAL BLOOD GAS O2 CONTENT 14.2 ML/dL (15-23); ARTERIAL BLOOD GAS PH 7.37 (7.35-7.45); ARTERIAL BLOOD GAS PO2 41 mm/Hg (80-100); ARTERIAL BLOOD HGB O2 SAT 79.2 % (95.0-98.0); CARBOXYHEMOGLOBIN 2.2 % (0.5-1.5); HHB 16.8 % (0.0-5.0); METHEMOGLOBIN 1.8 % (0.0-3.0)
[2016-08-15] MEDS ORDERED: Potassium Chloride 20 mEq/15 ml LIQ UD PO ONE (13:35)
--- NOTE | 2016-08-15 16:34 | CP.PCM.PN ---
Subjective - Date & Time of Evaluation Date of Evaluation: 08/15/16 Time of Evaluation: 13:00 - Subjective Subjective: Patient seen and examined bedside.Chronically ill female , overweight sitting in chair , on Bipap 14/6/35 % / RR 16 with accessory muscle use and poor air entry bilaterally ABG in RA PO2 41 /pCO2 80/ph 7.37 Patient is awake , apperas slightly sleepy but easily arausable BP stable, afebrile Objective - Vital Signs/Intake and Output Vital Signs (last 24 hours): Temp Pulse Resp BP Pulse Ox 98.5 F 84 20 105/68 96 08/15/16 15:44 08/15/16 15:47 08/15/16 15:44 08/15/16 15:44 08/15/16 15:44 Intake and Output: 08/15/16 08/15/16 06:59 18:59 Intake Total 2740 Balance 2740 - Medications Medications: Current Medications Acetazolamide (Diamox Sequels 500 Mg Sr Cap) 500 mg PO DAILY [facility] Last Admin: 08/15/16 08:52 Dose: 500 mg Aspirin (Aspirin Chewable) 81 mg PO DAILY [facility] Last Admin: 08/15/16 08:51 Dose: 81 mg Atorvastatin Calcium (Lipitor) 10 mg PO HS [facility] Last Admin: 08/14/16 21:39 Dose: 10 mg Azithromycin (Zithromax) 500 mg PO DAILY [facility] Last Admin: 08/15/16 08:51 Dose: 500 mg Cholecalciferol (Vitamin D) 2,000 iu PO DAILY [facility] Last Admin: 08/15/16 08:51 Dose: 2,000 iu Enoxaparin Sodium (Lovenox) 40 mg SC DAILY [facility] PRN Reason: Protocol Last Admin: 08/15/16 08:53 Dose: 40 mg Fluticasone Propionate (Flonase) 2 spr KEVIN DAILY [facility] Last Admin: 08/15/16 08:50 Dose: 2 spr Folic Acid (Folic Acid) 2 mg PO BID [facility] Last Admin: 08/15/16 08:50 Dose: 2 mg Furosemide (Lasix) 40 mg PO DAILY [facility] Last Admin: 08/15/16 08:51 Dose: 40 mg Gabapentin (Neurontin) 100 mg PO DAILY [facility] Last Admin: 08/15/16 08:50 Dose: 100 mg Gabapentin (Neurontin) 300 mg PO HS [facility] Last Admin: 08/14/16 21:39 Dose: 300 mg Hydroxychloroquine Sulfate (Plaquenil) 400 mg PO DAILY [facility] Last Admin: 08/15/16 08:50 Dose: 400 mg Piperacillin Sod/Tazobactam (Sod 3.375 gm/ Sodium Chloride) 100 mls @ 100 mls/ hr IVPB Q8 [facility] Last Admin: 08/15/16 08:52 Dose: 100 mls/hr Methylprednisolone 30 mg/ (Sodium Chloride) 50.48 mls @ 100 mls/hr IVPB DAILY [facility] Last Admin: 08/15/16 08:56 Dose: 100 mls/hr Ipratropium Bryan (Atrovent) 0.5 mg IH RQ6 [facility] Last Admin: 08/15/16 13:31 Dose: 0.5 mg Lactic Acid (Lac-Hydrin 12% Lotion (225 G)) 1 applic TOP TID [facility] Last Admin: 08/15/16 13:18 Dose: 1 applic Levalbuterol HCl (Xopenex) 1.25 mg INH RQ6 [facility] Last Admin: 08/15/16 13:31 Dose: 1.25 mg Methotrexate (Methotrexate) 15 mg PO SAT [facility] PRN Reason: Protocol Last Admin: 08/11/16 10:31 Dose: 15 mg Metoprolol Succinate (Toprol Xl) 50 mg PO DAILY [facility] Last Admin: 08/15/16 08:50 Dose: 50 mg Mometasone Furoate (Asmanex Twisthaler 220 Mcg) 1 puff IH DAILY [facility] Last Admin: 08/15/16 08:49 Dose: 1 puff Multivitamins/Minerals (Therapeutic-M Tab) 1 tab PO DAILY [facility] Last Admin: 08/15/16 08:52 Dose: 1 tab Pantoprazole Sodium (Protonix Ec Tab) 40 mg PO DAILY [facility] Last Admin: 08/15/16 08:53 Dose: 40 mg Saccharomyces Boulardii (Florastor) 250 mg PO BID [facility] Last Admin: 08/15/16 08:51 Dose: 250 mg - Labs Labs: 08/15/16 06:20 08/15/16 06:20 - Constitutional Appears: In Acute Distress (respiratory distress with accessory muscle use ), Chronically Ill - Head Exam Head Exam: ATRAUMATIC, NORMAL INSPECTION, NORMOCEPHALIC - Eye Exam Eye Exam: EOMI, PERRL Pupil Exam: NORMAL ACCOMODATION - ENT Exam ENT Exam: Mucous Membranes Moist, Normal Exam - Neck Exam Neck Exam: Normal Inspection - Respiratory Exam Respiratory Exam: Accessory Muscle Use, Decreased Breath Sounds (bilaterally ), Prolonged Expiratory Phase, Respiratory Distress. absent: Rhonchi, Wheezes - Cardiovascular Exam Cardiovascular Exam: Irregular Rhythm. absent: JVD - GI/Abdominal Exam GI & Abdominal Exam: Soft, Normal Bowel Sounds. absent: Distended, Guarding, Tenderness, Rebound - Rectal Exam Rectal Exam: Deferred - Extremities Exam Extremities Exam: Pedal Edema (2 + bilateral LE) Additional comments: multiple echymotic areas to both upper extremities - Back Exam Back Exam: NORMAL INSPECTION - Neurological Exam Neurological Exam: Alert, Awake, CN II-XII Intact, Oriented x3 - Psychiatric Exam Psychiatric exam: Normal Affect - Skin Skin Exam: Dry, Warm Additional comments: verey thin frail skin with multiple echymotic areas especially to both arms Assessment and Plan - Assessment and Plan (Free Text) Assessment: 66 year old female (PMHx: COPD, CHF, HTN, HLD, RA, Chronic LE Edema, MAT) presented to the ER via EMS with her with a chief complaint of SOB. Found to be in respiratory failure. She was transferred to ICU , placed on Bipap and high flow O2 via NC ,treated with IV solumedrol tappering dose, Xopenex anD IV antibiotics. Ct chest performed yesterday showed Left upper lobe mass suspicious for malignancy. At present back in Bipap due to respiratory distress and PO2 41 PCO2 80 in RA . Plan for bronchoscopy in AM 1. Acute on Chronic Respiratory Failure with Hypoxia and Hypercapnea likely sec to COPD and PNA still with respiratory distress today and ABG in RA showing PO2 41 , PCO2 80 ph 7.37. Patient AAOx3 , placed back on BIPAP 16/6/40 % RR 16 Pulmonary following closely, Dr. Yusuf Continue solumedrol 30 mg IV daily Continue Zosyn and Zithromax IV cont Xopenex neb tx CT chest showed STEPHEN mass suspicious for malignancy with extension to mediastinum , hilum , tumor invasion to left main pulmonary artery and encasement of left upper lobe bronchus Plan for bronchoscopy in AM Will hold lovenox in AM and keep NPO past midnight Continue Diamox daily Request forms for home Bipap sent to 2. COPD exacerbation Pulmonology Dr. Yusuf consulted and following tappered Solumedrol to 30mg daily Continue Xopenex ,Asmanex and Spiriva 3. Bilateral pneumonia Chest X Ray 08/09/16 shows new RLL and STEPHEN infiltrates Continue Zosyn and Zithromax IV ID consulted- Dr Cantor Rapid Influenza: neg Sputum c/s: negative Legionella pending Mycoplasm IgM : neg Ct chest showed no infiltrate, TSEPHEN mass suspicious for malignancy. will continue antibiotics for now. Will discuss with pulmonary before discontinuation 4.Hx of Multifocal Atrial Tachycardia and episode of A Fib on ASA 81 mg and Metoprolol 5. Chronic CHF (congestive heart failure), Diastolic dysfunction/Pulm HTN stable ECHO 04/20 : normal EF Metoprolol XL 50 mg PO 1x/day Decreased Lasix to 40 mg daily 6. HTN (hypertension) controlled on Metoprolol XL 50 mg PO QD 7. Hyperlipidemia Atorvastatin 10 mg PO QHS 8. GERD (gastroesophageal reflux disease) Omeprazole 20 mg PO 1x/day 9. Rheumatoid arthritis with Interstitial Lung Disease Methotrexate 15 mg PO 1x/day on Saturday Folic Acid 2 mg PO 2x/day Plaquenil 400 mg PO 1x/day 10. Peripheral Vascular Dis/Venous Insufficiency Vascular Sx on consult Art Doppler studies LE: decrease flow right more than left Neg DVT on LE Venous US cont ASA Lac-hydrin lotion fo dry skin LE 11. Prophylactic measure Lovenox 40 mg SC 1x/day for DVT Prophylaxis Omeprazole 20 mg PO 1x/day for GI Prophylaxis Florastor 250 mg PO 2x/day as patient has been placed on antibiotics for the Bilateral Lung Infiltrates MVI PO 1x/day Cholecalciferal 2,000 Units PO 1x/day
--- NOTE | 2016-08-15 16:39 | CP.PCM.PN ---
Subjective - Date & Time of Evaluation Date of Evaluation: 08/15/16 Time of Evaluation: 16:39 - Subjective Subjective: ID Note- Pt. seen and examined today. is sitting up in chair. still on BIPAP and slightly tachypneic. denies any chills. as per pt. and her pt. is having bronchoscopy done tomm since they are new findings of ? mass tumor on the new chest CT. Objective - Vital Signs/Intake and Output Vital Signs (last 24 hours): Temp Pulse Resp BP Pulse Ox 98.5 F 84 20 105/68 96 08/15/16 15:44 08/15/16 15:47 08/15/16 15:44 08/15/16 15:44 08/15/16 15:44 Intake and Output: 08/15/16 08/15/16 06:59 18:59 Intake Total 2740 Balance 2740 - Medications Medications: Current Medications Acetazolamide (Diamox Sequels 500 Mg Sr Cap) 500 mg PO DAILY [facility] Last Admin: 08/15/16 08:52 Dose: 500 mg Aspirin (Aspirin Chewable) 81 mg PO DAILY [facility] Last Admin: 08/15/16 08:51 Dose: 81 mg Atorvastatin Calcium (Lipitor) 10 mg PO HS [facility] Last Admin: 08/14/16 21:39 Dose: 10 mg Azithromycin (Zithromax) 500 mg PO DAILY [facility] Last Admin: 08/15/16 08:51 Dose: 500 mg Cholecalciferol (Vitamin D) 2,000 iu PO DAILY [facility] Last Admin: 08/15/16 08:51 Dose: 2,000 iu Enoxaparin Sodium (Lovenox) 40 mg SC DAILY [facility] PRN Reason: Protocol Last Admin: 08/15/16 08:53 Dose: 40 mg Fluticasone Propionate (Flonase) 2 spr KEVIN DAILY [facility] Last Admin: 08/15/16 08:50 Dose: 2 spr Folic Acid (Folic Acid) 2 mg PO BID [facility] Last Admin: 08/15/16 08:50 Dose: 2 mg Furosemide (Lasix) 40 mg PO DAILY [facility] Last Admin: 08/15/16 08:51 Dose: 40 mg Gabapentin (Neurontin) 100 mg PO DAILY [facility] Last Admin: 08/15/16 08:50 Dose: 100 mg Gabapentin (Neurontin) 300 mg PO HS [facility] Last Admin: 08/14/16 21:39 Dose: 300 mg Hydroxychloroquine Sulfate (Plaquenil) 400 mg PO DAILY [facility] Last Admin: 08/15/16 08:50 Dose: 400 mg Piperacillin Sod/Tazobactam (Sod 3.375 gm/ Sodium Chloride) 100 mls @ 100 mls/ hr IVPB Q8 [facility] Last Admin: 08/15/16 08:52 Dose: 100 mls/hr Methylprednisolone 30 mg/ (Sodium Chloride) 50.48 mls @ 100 mls/hr IVPB DAILY [facility] Last Admin: 08/15/16 08:56 Dose: 100 mls/hr Ipratropium Haddock (Atrovent) 0.5 mg IH RQ6 [facility] Last Admin: 08/15/16 13:31 Dose: 0.5 mg Lactic Acid (Lac-Hydrin 12% Lotion (225 G)) 1 applic TOP TID [facility] Last Admin: 08/15/16 13:18 Dose: 1 applic Levalbuterol HCl (Xopenex) 1.25 mg INH RQ6 [facility] Last Admin: 08/15/16 13:31 Dose: 1.25 mg Methotrexate (Methotrexate) 15 mg PO [facility] PRN Reason: Protocol Last Admin: 08/11/16 10:31 Dose: 15 mg Metoprolol Succinate (Toprol Xl) 50 mg PO DAILY [facility] Last Admin: 08/15/16 08:50 Dose: 50 mg Mometasone Furoate (Asmanex Twisthaler 220 Mcg) 1 puff IH DAILY [facility] Last Admin: 08/15/16 08:49 Dose: 1 puff Multivitamins/Minerals (Therapeutic-M Tab) 1 tab PO DAILY [facility] Last Admin: 08/15/16 08:52 Dose: 1 tab Pantoprazole Sodium (Protonix Ec Tab) 40 mg PO DAILY [facility] Last Admin: 08/15/16 08:53 Dose: 40 mg Saccharomyces Boulardii (Florastor) 250 mg PO BID [facility] Last Admin: 08/15/16 08:51 Dose: 250 mg - Labs Labs: - Constitutional Appears: Non-toxic, Chronically Ill - Head Exam Head Exam: ATRAUMATIC - Eye Exam Eye Exam: EOMI, PERRL - Respiratory Exam Additional comments: decreased breath sounds b/l no wheezing - Cardiovascular Exam Cardiovascular Exam: RRR, +S1, +S2 - GI/Abdominal Exam GI & Abdominal Exam: Soft, Normal Bowel Sounds Additional comments: NT, ND - Extremities Exam Additional comments: venous stasis dermatitis changes, 1 + edema b/l - Neurological Exam Neurological Exam: Alert, Oriented x3 - Additional Findings Additional findings: Accession No. : [id number] Patient Name / ID : SAROJ PRAKASH / [id number] Exam Date : 08/14/2016 18:08:59 ( Approved ) Study Comment : Sex / Age : F / 66Y Creator : Je Vicente MD Dictator : Je Vicente MD Bed Laborer : Kerrick Kleaner Operator : Je Vicente MD Approver2 : Report Date : 08/14/2016 18:50:49 My Comment : PROCEDURE: CT Chest without contrast HISTORY: r/o pneumonia, interstitial lung disease COMPARISON: August 13, 2016. Single-view chest 10/21/2009 CT thorax TECHNIQUE: Contiguous axial images were obtained through the chest without intravenous contrast enhancement. Sagittal and coronal reconstructions were performed. Radiation dose (DLP): 703.94 mGy-cm. This CT exam was performed using one or more of the following dose reduction techniques: Automated exposure control, adjustment of the mA and/or kV according to patient size, and/or use of iterative reconstruction technique. FINDINGS: LUNGS: Partially necrotic spiculated left upper lobe mass measuring 4.4 x 4.8 cm. The mass abuts the mediastinum, it extends directly into the AP window region. Left hilar adenopathy noted. Despite the absence of intravenous contrast tumor likely invades the left pulmonary artery. Left Upper lobe bronchus is encased by tumor Atelectatic changes likely compressive atelectasis associate with small bilateral pleural effusions. The right pleural effusion tracks against the major fissure. Subcentimeter scar/spiculated mass right apex. MEDIASTINUM: Unremarkable thoracic aorta. No aneurysm. Normal sized heart. Main pulmonary artery unremarkable. No vascular congestion. No lymphadenopathy. PLEURA: No pleural fluid. No pneumothorax. BONES: No fracture. No destructive lesion. UPPER ABDOMEN: Grossly unremarkable. OTHER FINDINGS: None. IMPRESSION: 1. Necrotic spiculated irregular mass approaching 5 cm left upper lobe. Direct extension into the left mediastinum and hilum noted. 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 2. Small bilateral pleural effusions, compressive atelectasis noted. 3. Indeterminate finding in the right apex more likely to be scar than neoplasm. Laboratory Results - last 72 hr 08/13/16 08/13/16 08/14/16 04:30 04:30 06:00 WBC 8.1 6.5 RBC 3.46 L 3.61 L Hgb 11.4 L 11.8 L Hct 36.4 38.0 MCV 105.4 H 105.1 H MCH 33.0 H 32.7 H MCHC 31.3 L 31.1 L RDW 17.4 H 16.5 H Plt Count 149 140 pCO2 pO2 HCO3 ABG pH ABG Total CO2 ABG O2 Saturation ABG O2 Content ABG Base Excess ABG Hemoglobin ABG Carboxyhemoglobin POC ABG HHb (Measured) ABG Methemoglobin ABG O2 Capacity Jorge Luis Test A-a O2 Difference Hgb O2 Saturation FiO2 Blood Gas Comments Crit Value Called To Crit Value Called By Crit Value Read Back Blood Gas Notified Time Sodium 143 Potassium 4.5 Chloride 92 L Carbon Dioxide 45 H* Anion Gap 11 BUN 23 H Creatinine 0.9 Est GFR ( Amer) > 60 Est GFR (Non-Af Amer) > 60 Random Glucose 118 H Calcium 9.2 08/14/16 08/14/16 08/15/16 06:00 12:13 06:20 WBC 8.8 RBC 3.60 L Hgb 11.6 L Hct 38.1 MCV 105.6 H MCH 32.2 H MCHC 30.5 L RDW 17.0 H Plt Count 143 pCO2 80 H* pO2 41 L* HCO3 37.6 H ABG pH 7.37 ABG Total CO2 48.7 H ABG O2 Saturation 82.5 L ABG O2 Content 14.2 L ABG Base Excess 16.9 H ABG Hemoglobin 12.8 ABG Carboxyhemoglobin 2.2 H POC ABG HHb (Measured) 16.8 H ABG Methemoglobin 1.8 ABG O2 Capacity 17.2 Jorge Luis Test Yes A-a O2 Difference 9.0 Hgb O2 Saturation 79.2 L FiO2 21.0 Blood Gas Comments C02=80 po2=41 Crit Value Called To bethel Sandoval Crit Value Called By 203 Crit Value Read Back Y Blood Gas Notified Time 1219 Sodium 143 Potassium 3.7 Chloride 90 L Carbon Dioxide 46 H* Anion Gap 17 BUN 21 H Creatinine 0.9 Est GFR ( Amer) > 60 Est GFR (Non-Af Amer) > 60 Random Glucose 116 H Calcium 8.9 08/15/16 06:20 WBC RBC Hgb Hct MCV MCH MCHC RDW Plt Count pCO2 pO2 HCO3 ABG pH ABG Total CO2 ABG O2 Saturation ABG O2 Content ABG Base Excess ABG Hemoglobin ABG Carboxyhemoglobin POC ABG HHb (Measured) ABG Methemoglobin ABG O2 Capacity Jorge Luis Test A-a O2 Difference Hgb O2 Saturation FiO2 Blood Gas Comments Crit Value Called To Crit Value Called By Crit Value Read Back Blood Gas Notified Time Sodium 143 Potassium 3.2 L Chloride 92 L Carbon Dioxide 44 H* Anion Gap 10 BUN 20 H Creatinine 0.8 Est GFR ( Amer) > 60 Est GFR (Non-Af Amer) > 60 Random Glucose 90 Calcium 8.8 Microbiology 08/13/16 19:25 Nose MRSA Culture (Admit) - Final MRSA NOT DETECTED 08/09/16 10:00 Blood-Venous Blood Culture - Final NO GROWTH AFTER 5 DAYS 08/09/16 10:00 Blood-Venous Gram Stain - Final TEST NOT PERFORMED 08/09/16 18:30 Sputum Gram Stain - Final 08/09/16 18:30 Sputum Sputum Culture - Final NORMAL SAPROPHYTIC KAREL 08/09/16 Unknown Naris MRSA Culture (Admit) - Final MRSA NOT DETECTED Assessment and Plan (1) Acute on chronic respiratory failure with hypoxia and hypercapnia Status: Acute (2) Bilateral pneumonia Status: Acute (3) History of CHF (congestive heart failure) Status: Chronic (4) Rheumatoid arthritis Status: Chronic (5) Leg edema Status: Chronic - Assessment and Plan (Free Text) Assessment: A/P- 66 year old female with RA on immunosuppressive meds, COPD, CHF, A.fib , venous stais presents with acute on chronic copd exacerbation with hypercapnea and b/l pneumonia. new Ct findings of ? tumor in the lung/broncus , bronch in am remains afebrile normal wbc count venous staisis . blood cx- negative sputum cx- negative urine Legionella AG- negative Mycoplasma IGM- negative 1. COPD exacerbation with hypercapnea 2.CHF 3.b/l LE venous stasis 4.RA plan- advise to d/c zithromax, has completed 7 days of this. In light of pt. having bronch tomm with most likely bx and brushings advise to continue with zosyn for now, day #7. also advise to give 1 dose vanco prior to the procedure empirically. BIPAP and resp care as per solder cream maker.
[2016-08-16] MEDS: Ipratropium 0.02% Inhal Soln (0.5 mg/2.5 ml) UD IH SCH ×4 (01:02→19:19)
[2016-08-16] MEDS: Levalbuterol 1.25 MG/3 ML Inhal Soln UD INH SCH ×4 (01:02→19:19)
[2016-08-16] MEDS: Piperacillin/Tazobact 3.375 GM in Sodium Chloride 0.9% 100 ML IVPB SCH ×3 (01:15→16:56)
[2016-08-16 06:43] LABS: HEMATOCRIT 36.4 % (34.0-47.0); MEAN CELL VOLUME 105.7 fl (81.0-99.0); MEAN CORPUSCULAR HEMOGLOBIN 32.4 pg (27.0-31.0); MEAN CORPUSCULAR HGB CONC 30.7 g/dL (33.0-37.0); RED CELL DISTRIBUTION WIDTH 17.2 % (11.5-14.5); WHITE BLOOD COUNT 8.4 K/uL (4.8-10.8)
[2016-08-16 06:51] LABS: BLOOD UREA NITROGEN 17 mg/dl (7-17); CALCIUM 9.1 mg/dL (8.4-10.2); CHLORIDE 94 mmol/L (98-107); GFR AFRICAN-AMERICAN > 60; GLUCOSE,RANDOM 73 mg/dL (65-105); POTASSIUM 4.1 MMOL/L (3.6-5.0); SODIUM 142 mmol/l (132-148)
[2016-08-16] MEDS ORDERED: Sodium Chloride 0.9% 20 ML IV ONE (07:05)
[2016-08-16] MEDS ORDERED: EPINEPHrine 1 mg/ml (1:1000) Inj ONE ×2 (07:05→07:37)
[2016-08-16] MEDS ORDERED: Lidocaine 1% Inj (20ml) ONE (07:06)
[2016-08-16] MEDS ORDERED: Lidocaine 2% Jelly (5 ml) TOP ONE (07:07)
[2016-08-16] MEDS ORDERED: Midazolam 2 MG/2 ML VIAL ONE (07:08)
[2016-08-16] MEDS ORDERED: Propofol 10 mg/ml Inj (20 ML) ONE (07:08)
[2016-08-16] MEDS ORDERED: Succinylcholine 200 mg/10 ml Inj IV ONE (07:08)
[2016-08-16] MEDS ORDERED: Etomidate 20 mg/10ml Inj IV ONE (07:08)
[2016-08-16] MEDS ORDERED: ePHEDrine 50 mg/ml Inj ONE (07:08)
[2016-08-16 07:13] LABS: CARBON DIOXIDE 44 mmol/L (22-30)
[2016-08-16] MEDS ORDERED: Phenylephrine 10 mg/ml Inj ONE (07:17)
[2016-08-16] MEDS ORDERED: Vasopressin 20 Units/ml Inj ONE (07:17)
[2016-08-16] MEDS ORDERED: Labetalol 5mg/ml (4ml) ONE (07:37)
[2016-08-16] MEDS ORDERED: Sodium Chloride 0.9% 250 ML IV ONE (07:50)
[2016-08-16] MEDS: Enoxaparin 40 mg Syringe SC SCH (08:30)
[2016-08-16] MEDS: methylPREDNISolone 30 MG in Sodium Chloride 0.9% 50 ML IVPB SCH (09:33)
--- NOTE | 2016-08-16 09:54 | RAD ---
HISTORY: PACU post bronchoscopy COMPARISON: Comparison made with chest radiograph 08/13/[address] scan chest 08/14/2016. FINDINGS: LUNGS: Previously noted left upper lobe mass density is again noted though less well delineated as compared to high-resolution CT scan. Bibasilar opacities consistent with atelectasis and effusions appears superimposed infiltrate not excluded. The interstitial markings are also somewhat increased and coarsened likely due to low lung volumes. Note that both medial lung apices are partially obscured by overlying facial soft tissue and mandible artifact. PLEURA: No significant pleural effusion identified, no pneumothorax apparent. CARDIOVASCULAR: Heart remains enlarged. OSSEOUS STRUCTURES: No significant abnormalities. VISUALIZED UPPER ABDOMEN: Normal. OTHER FINDINGS: None. IMPRESSION: Previously noted left upper lobe mass density is again noted though less well delineated as compared to high-resolution CT scan. Bibasilar opacities consistent with atelectasis and effusions appears superimposed infiltrate not excluded. The interstitial markings are also somewhat increased and coarsened likely due to low lung volumes. Note that both medial lung apices are partially obscured by overlying facial soft tissue and mandible artifact.
[2016-08-16] MEDS: acetaZOLAMIDE 500 mg SR Cap PO SCH (10:58)
[2016-08-16] MEDS: Mometasone 220 mcg/puff-14 puff Inh IH SCH (10:58)
[2016-08-16] MEDS: Saccharomyces Boulardi 250 mg Cap PO SCH ×2 (11:00→16:54)
[2016-08-16] MEDS: Pantoprazole 40 mg EC Tab PO SCH (11:03)
[2016-08-16] MEDS: Multivitamin With Minerals Tab PO SCH (11:03)
[2016-08-16] MEDS: Metoprolol Succinate 50 mg XL Tab PO SCH (11:04)
--- NOTE | 2016-08-16 12:02 | CP.PCM.PN ---
Subjective - Date & Time of Evaluation Date of Evaluation: 08/16/16 Time of Evaluation: 11:30 - Subjective Subjective: No fever remains on Bipap 17/08 35% Had Bronchoscopy done early this am denies CP no abd pain Discussed test results and treatment plan - plan fo TCU - discussed with pt and who was at bedside Objective - Vital Signs/Intake and Output Vital Signs (last 24 hours): Temp Pulse Resp BP Pulse Ox 97.5 F L 58 L 22 115/62 93 L 08/16/16 10:25 08/16/16 11:04 08/16/16 10:25 08/16/16 11:04 08/16/16 10:25 Intake and Output: 08/16/16 08/16/16 06:59 18:59 Intake Total 200.48 Balance 200.48 - Medications Medications: Current Medications Acetazolamide (Diamox Sequels 500 Mg Sr Cap) 500 mg PO DAILY [facility] Last Admin: 08/16/16 10:58 Dose: 500 mg Aspirin (Aspirin Chewable) 81 mg PO DAILY [facility] Last Admin: 08/16/16 10:58 Dose: 81 mg Atorvastatin Calcium (Lipitor) 10 mg PO HS [facility] Last Admin: 08/15/16 21:31 Dose: 10 mg Azithromycin (Zithromax) 500 mg PO DAILY [facility] Last Admin: 08/16/16 11:05 Dose: 500 mg Cholecalciferol (Vitamin D) 2,000 iu PO DAILY [facility] Last Admin: 08/16/16 11:04 Dose: 2,000 iu Enoxaparin Sodium (Lovenox) 40 mg SC DAILY [facility] PRN Reason: Protocol Last Admin: 08/16/16 08:30 Dose: Not Given Fluticasone Propionate (Flonase) 2 spr KEVIN DAILY [facility] Last Admin: 08/16/16 10:59 Dose: 2 spr Folic Acid (Folic Acid) 2 mg PO BID [facility] Last Admin: 08/16/16 11:00 Dose: 2 mg Furosemide (Lasix) 40 mg PO DAILY [facility] Last Admin: 08/16/16 11:01 Dose: 40 mg Gabapentin (Neurontin) 100 mg PO DAILY [facility] Last Admin: 08/16/16 11:02 Dose: 100 mg Gabapentin (Neurontin) 300 mg PO HS [facility] Last Admin: 08/15/16 21:57 Dose: Not Given Hydroxychloroquine Sulfate (Plaquenil) 400 mg PO DAILY [facility] Last Admin: 08/15/16 08:50 Dose: 400 mg Piperacillin Sod/Tazobactam (Sod 3.375 gm/ Sodium Chloride) 100 mls @ 100 mls/ hr IVPB Q8 [facility] Last Admin: 08/16/16 10:12 Dose: 0 mls Methylprednisolone 30 mg/ (Sodium Chloride) 50.48 mls @ 100 mls/hr IVPB DAILY [facility] Last Admin: 08/16/16 09:33 Dose: 50.48 mls Ipratropium [place] (Atrovent) 0.5 mg IH RQ6 [facility] Last Admin: 08/16/16 08:20 Dose: Not Given Lactic Acid (Lac-Hydrin 12% Lotion (225 G)) 1 applic TOP TID [facility] Last Admin: 08/16/16 11:00 Dose: 1 applic Levalbuterol HCl (Xopenex) 1.25 mg INH RQ6 [facility] Last Admin: 08/16/16 08:21 Dose: Not Given Methotrexate (Methotrexate) 15 mg PO SAT [facility] PRN Reason: Protocol Last Admin: 08/11/16 10:31 Dose: 15 mg Metoprolol Succinate (Toprol Xl) 50 mg PO DAILY [facility] Last Admin: 08/16/16 11:04 Dose: 50 mg Mometasone Furoate (Asmanex Twisthaler 220 Mcg) 1 puff IH DAILY [facility] Last Admin: 08/16/16 10:58 Dose: 1 puff Multivitamins/Minerals (Therapeutic-M Tab) 1 tab PO DAILY [facility] Last Admin: 08/16/16 11:03 Dose: 1 tab Pantoprazole Sodium (Protonix Ec Tab) 40 mg PO DAILY [facility] Last Admin: 08/16/16 11:03 Dose: 40 mg Saccharomyces Boulardii (Florastor) 250 mg PO BID [facility] Last Admin: 08/16/16 11:00 Dose: 250 mg - Labs Labs: 08/16/16 05:45 08/16/16 05:45 - Constitutional Appears: In Acute Distress, Chronically Ill - Head Exam Head Exam: NORMAL INSPECTION, NORMOCEPHALIC - Eye Exam Eye Exam: EOMI, Normal appearance Pupil Exam: NORMAL ACCOMODATION - ENT Exam ENT Exam: Mucous Membranes Dry, Normal External Ear Exam - Neck Exam Neck Exam: Full ROM. absent: Meningismus - Respiratory Exam Respiratory Exam: Rales, Rhonchi, Respiratory Distress, decrease BS, no wheezing Additional comments: On High Flow Oxygen - Cardiovascular Exam Cardiovascular Exam: REGULAR RHYTHM, +S1, +S2 - GI/Abdominal Exam GI & Abdominal Exam: Soft, Normal Bowel Sounds. absent: Tenderness - Extremities Exam Extremities Exam: +++Pedal Edema. absent: Calf Tenderness Additional comments: chronic stasis skin changes decrease peripheral pulses , bilat - Back Exam Back Exam: Full ROM. absent: CVA tenderness (L), CVA tenderness (R) - Neurological Exam Neurological Exam: CN II-XII Intact, Oriented x3 Neuro motor strength exam: Left Upper Extremity: 5, Right Upper Extremity: 5, Left Lower Extremity: 5, Right Lower Extremity: 5 - Psychiatric Exam Psychiatric exam: Flat Affect - Skin Skin Exam: Dry, Pallor, bruises on arms Assessment and Plan - Assessment and Plan (Free Text) Assessment: 66 year old female (PMHx: COPD, CHF, HTN, HLD, RA, Chronic LE Edema, MAT) presented to the ER via EMS with her with a chief complaint of SOB. Found to be in respiratory failure. She was transferred to ICU , placed on Bipap and high flow O2 via NC ,treated with IV solumedrol tapering dose, Xopenex and IV antibiotics. Ct chest performed yesterday showed Left upper lobe mass suspicious for malignancy. At present back in Bipap due to respiratory distress and PO2 41 PCO2 80 in RA . Had Bronchoscopy this am : noted extrinsic compression STEPHEN , lesion found apical post segement of STEPHEN. Brushings obtained. 1. Acute on Chronic Respiratory Failure with Hypoxia and Hypercapnea likely sec to COPD and PNA on BIPAP 16/6/35 % RR 16 Pulmonary following closely, Dr. Yusuf Continue solumedrol 30 mg IV daily Continue Zosyn and Zithromax IV cont Xopenex neb tx CT chest showed STEPHEN mass suspicious for malignancy with extension to mediastinum , hilum , tumor invasion to left main pulmonary artery and encasement of left upper lobe bronchus s/p Bronchoscopy 08/16 - noted STEPHEN lesion Continue Diamox daily May likely need Home Bipap 2. COPD exacerbation Pulmonology Dr. Yusuf consulted and following tapered Solumedrol to 30mg daily Continue Xopenex ,Asmanex and Spiriva 3. Bilateral pneumonia Chest X Ray 08/09/16 shows new RLL and STEPHEN infiltrates Continue Zosyn IV completed 7 days of IV Azithro ID consulted- Dr Cantor Rapid Influenza: neg Sputum c/s: negative Legionella: neg Mycoplasm IgM : neg Ct chest showed no infiltrate, STEPHEN mass suspicious for malignancy. 4.Hx of Multifocal Atrial Tachycardia and episode of A Fib on ASA 81 mg and Metoprolol 5. Chronic CHF (congestive heart failure), Diastolic dysfunction/Pulm HTN stable ECHO 04/20 : normal EF Metoprolol XL 50 mg PO 1x/day Decreased Lasix to 40 mg daily 6. HTN (hypertension) controlled on Metoprolol XL 50 mg PO QD 7. Hyperlipidemia Atorvastatin 10 mg PO QHS 8. GERD (gastroesophageal reflux disease) Omeprazole 20 mg PO 1x/day 9. Rheumatoid arthritis with Interstitial Lung Disease Methotrexate 15 mg PO 1x/day on Saturday Folic Acid 2 mg PO 2x/day Plaquenil 400 mg PO 1x/day 10. Peripheral Vascular Dis/Venous Insufficiency Vascular Sx on consult Art Doppler studies LE: decrease flow right more than left Neg DVT on LE Venous US cont ASA Lac-hydrin lotion fo dry skin LE 11. Prophylactic measure Lovenox 40 mg SC 1x/day for DVT Prophylaxis Omeprazole 20 mg PO 1x/day for GI Prophylaxis Florastor 250 mg PO 2x/day as patient has been placed on antibiotics for the Bilateral Lung Infiltrates MVI PO 1x/day Cholecalciferal 2,000 Units PO 1x/day
--- NOTE | 2016-08-16 15:01 | CP.PCM.PN ---
Subjective - Date & Time of Evaluation Date of Evaluation: 08/16/16 Time of Evaluation: 13:00 - Subjective Subjective: ID note- Pt. seen and examined today. she is sitting up in bed in good spirits. Is only on NC at this time. S/p bronchoscopy earlier today. Objective - Vital Signs/Intake and Output Vital Signs (last 24 hours): Temp Pulse Resp BP Pulse Ox 97.1 F L 58 L 18 115/62 95 08/16/16 12:00 08/16/16 12:00 08/16/16 12:00 08/16/16 12:00 08/16/16 12:00 Intake and Output: 08/16/16 08/16/16 06:59 18:59 Intake Total 200.48 Balance 200.48 - Medications Medications: Current Medications Acetazolamide (Diamox Sequels 500 Mg Sr Cap) 500 mg PO DAILY [facility] Last Admin: 08/16/16 10:58 Dose: 500 mg Aspirin (Aspirin Chewable) 81 mg PO DAILY [facility] Last Admin: 08/16/16 10:58 Dose: 81 mg Atorvastatin Calcium (Lipitor) 10 mg PO HS [facility] Last Admin: 08/15/16 21:31 Dose: 10 mg Azithromycin (Zithromax) 500 mg PO DAILY [facility] Last Admin: 08/16/16 11:05 Dose: 500 mg Cholecalciferol (Vitamin D) 2,000 iu PO DAILY [facility] Last Admin: 08/16/16 11:04 Dose: 2,000 iu Enoxaparin Sodium (Lovenox) 40 mg SC DAILY [facility] PRN Reason: Protocol Last Admin: 08/16/16 08:30 Dose: Not Given Fluticasone Propionate (Flonase) 2 spr KEVIN DAILY [facility] Last Admin: 08/16/16 10:59 Dose: 2 spr Folic Acid (Folic Acid) 2 mg PO BID [facility] Last Admin: 08/16/16 11:00 Dose: 2 mg Furosemide (Lasix) 40 mg PO DAILY [facility] Last Admin: 08/16/16 11:01 Dose: 40 mg Gabapentin (Neurontin) 100 mg PO DAILY [facility] Last Admin: 08/16/16 11:02 Dose: 100 mg Gabapentin (Neurontin) 300 mg PO HS [facility] Last Admin: 08/15/16 21:57 Dose: Not Given Hydroxychloroquine Sulfate (Plaquenil) 400 mg PO DAILY [facility] Last Admin: 08/16/16 11:00 Dose: 400 mg Piperacillin Sod/Tazobactam (Sod 3.375 gm/ Sodium Chloride) 100 mls @ 100 mls/ hr IVPB Q8 [facility] Last Admin: 08/16/16 10:12 Dose: 0 mls Methylprednisolone 30 mg/ (Sodium Chloride) 50.48 mls @ 100 mls/hr IVPB DAILY [facility] Last Admin: 08/16/16 09:33 Dose: 50.48 mls Ipratropium [place] (Atrovent) 0.5 mg IH RQ6 [facility] Last Admin: 08/16/16 13:33 Dose: 0.5 mg Lactic Acid (Lac-Hydrin 12% Lotion (225 G)) 1 applic TOP TID [facility] Last Admin: 08/16/16 12:04 Dose: 1 applic Levalbuterol HCl (Xopenex) 1.25 mg INH RQ6 [facility] Last Admin: 08/16/16 13:33 Dose: 1.25 mg Methotrexate (Methotrexate) 15 mg PO SAT [facility] PRN Reason: Protocol Last Admin: 08/11/16 10:31 Dose: 15 mg Metoprolol Succinate (Toprol Xl) 50 mg PO DAILY [facility] Last Admin: 08/16/16 11:04 Dose: 50 mg Mometasone Furoate (Asmanex Twisthaler 220 Mcg) 1 puff IH DAILY [facility] Last Admin: 08/16/16 10:58 Dose: 1 puff Multivitamins/Minerals (Therapeutic-M Tab) 1 tab PO DAILY [facility] Last Admin: 08/16/16 11:03 Dose: 1 tab Pantoprazole Sodium (Protonix Ec Tab) 40 mg PO DAILY [facility] Last Admin: 08/16/16 11:03 Dose: 40 mg Saccharomyces Boulardii (Florastor) 250 mg PO BID [facility] Last Admin: 08/16/16 11:00 Dose: 250 mg - Labs Labs: - Additional Findings Additional findings: - Constitutional Appears: Non-toxic, Chronically Ill - Head Exam Head Exam: ATRAUMATIC - Eye Exam Eye Exam: EOMI, PERRL - Respiratory Exam Additional comments: decreased breath sounds b/l no wheezing - Cardiovascular Exam Cardiovascular Exam: RRR, +S1, +S2 - GI/Abdominal Exam GI & Abdominal Exam: Soft, Normal Bowel Sounds Additional comments: NT, ND - Extremities Exam Additional comments: venous stasis dermatitis changes, 1 + edema b/l - Neurological Exam Neurological Exam: Alert, Oriented x 3 Laboratory Results - last 72 hr 08/14/16 08/14/16 08/14/16 06:00 06:00 12:13 WBC 6.5 RBC 3.61 L Hgb 11.8 L Hct 38.0 MCV 105.1 H MCH 32.7 H MCHC 31.1 L RDW 16.5 H Plt Count 140 pCO2 80 H* pO2 41 L* HCO3 37.6 H ABG pH 7.37 ABG Total CO2 48.7 H ABG O2 Saturation 82.5 L ABG O2 Content 14.2 L ABG Base Excess 16.9 H ABG Hemoglobin 12.8 ABG Carboxyhemoglobin 2.2 H POC ABG HHb (Measured) 16.8 H ABG Methemoglobin 1.8 ABG O2 Capacity 17.2 Jorge Luis Test Yes A-a O2 Difference 9.0 Hgb O2 Saturation 79.2 L FiO2 21.0 Blood Gas Comments C02=80 po2=41 Crit Value Called To chapo Sandoval Crit Value Called By 203 Crit Value Read Back Y Blood Gas Notified Time 1219 Sodium 143 Potassium 3.7 Chloride 90 L Carbon Dioxide 46 H* Anion Gap 17 BUN 21 H Creatinine 0.9 Est GFR ( Amer) > 60 Est GFR (Non-Af Amer) > 60 Random Glucose 116 H Calcium 8.9 Blood Type Blood Type Confirm Antibody Screen BBK History Checked 08/15/16 08/15/16 08/15/16 06:20 06:20 19:01 WBC 8.8 RBC 3.60 L Hgb 11.6 L Hct 38.1 MCV 105.6 H MCH 32.2 H MCHC 30.5 L RDW 17.0 H Plt Count 143 pCO2 pO2 HCO3 ABG pH ABG Total CO2 ABG O2 Saturation ABG O2 Content ABG Base Excess ABG Hemoglobin ABG Carboxyhemoglobin POC ABG HHb (Measured) ABG Methemoglobin ABG O2 Capacity Jorge Luis Test A-a O2 Difference Hgb O2 Saturation FiO2 Blood Gas Comments Crit Value Called To Crit Value Called By Crit Value Read Back Blood Gas Notified Time Sodium 143 Potassium 3.2 L Chloride 92 L Carbon Dioxide 44 H* Anion Gap 10 BUN 20 H Creatinine 0.8 Est GFR ( Amer) > 60 Est GFR (Non-Af Amer) > 60 Random Glucose 90 Calcium 8.8 Blood Type A POSITIVE Blood Type Confirm Antibody Screen Negative BBK History Checked No verified bt 08/15/16 08/16/16 08/16/16 19:13 05:45 05:45 WBC 8.4 RBC 3.45 L Hgb 11.2 L Hct 36.4 MCV 105.7 H MCH 32.4 H MCHC 30.7 L RDW 17.2 H Plt Count 139 pCO2 pO2 HCO3 ABG pH ABG Total CO2 ABG O2 Saturation ABG O2 Content ABG Base Excess ABG Hemoglobin ABG Carboxyhemoglobin POC ABG HHb (Measured) ABG Methemoglobin ABG O2 Capacity Jorge Luis Test A-a O2 Difference Hgb O2 Saturation FiO2 Blood Gas Comments Crit Value Called To Crit Value Called By Crit Value Read Back Blood Gas Notified Time Sodium 142 Potassium 4.1 Chloride 94 L Carbon Dioxide 44 H* Anion Gap 8 L BUN 17 Creatinine 0.7 Est GFR ( Amer) > 60 Est GFR (Non-Af Amer) > 60 Random Glucose 73 Calcium 9.1 Blood Type Blood Type Confirm A POSITIVE Antibody Screen BBK History Checked Microbiology 08/13/16 19:25 Nose MRSA Culture (Admit) - Final MRSA NOT DETECTED 08/09/16 10:00 Blood-Venous Blood Culture - Final NO GROWTH AFTER 5 DAYS 08/09/16 10:00 Blood-Venous Gram Stain - Final TEST NOT PERFORMED 08/09/16 18:30 Sputum Gram Stain - Final 08/09/16 18:30 Sputum Sputum Culture - Final NORMAL SAPROPHYTIC KAREL 08/09/16 Unknown Naris MRSA Culture (Admit) - Final MRSA NOT DETECTED Accession No. : [id number] Patient Name / ID : SAROJ PRAKASH / [id number] Exam Date : 08/16/2016 08:33:12 ( Approved ) Study Comment : Sex / Age : F / 66Y Creator : Chapo Walsh MD Dictator : Chapo Walsh MD Cloth Sander : Hot Worker : Chapo Walsh MD Approver2 : Report Date : 08/16/2016 09:53:11 My Comment : HISTORY: PACU post bronchoscopy COMPARISON: Comparison made with chest radiograph 08/13/[address] scan chest 08/14/2016. FINDINGS: LUNGS: Previously noted left upper lobe mass density is again noted though less well delineated as compared to high-resolution CT scan. Bibasilar opacities consistent with atelectasis and effusions appears superimposed infiltrate not excluded. The interstitial markings are also somewhat increased and coarsened likely due to low lung volumes. Note that both medial lung apices are partially obscured by overlying facial soft tissue and mandible artifact. PLEURA: No significant pleural effusion identified, no pneumothorax apparent. CARDIOVASCULAR: Heart remains enlarged. OSSEOUS STRUCTURES: No significant abnormalities. VISUALIZED UPPER ABDOMEN: Normal. OTHER FINDINGS: None. IMPRESSION: Previously noted left upper lobe mass density is again noted though less well delineated as compared to high-resolution CT scan. Bibasilar opacities consistent with atelectasis and effusions appears superimposed infiltrate not excluded. The interstitial markings are also somewhat increased and coarsened likely due to low lung volumes. Note that both medial lung apices are partially obscured by overlying facial soft tissue and mandible artifact. Assessment and Plan (1) Acute on chronic respiratory failure with hypoxia and hypercapnia Status: Acute (2) Bilateral pneumonia Status: Acute (3) History of CHF (congestive heart failure) Status: Chronic (4) Rheumatoid arthritis Status: Chronic (5) Leg edema Status: Chronic - Assessment and Plan (Free Text) Assessment: A/P- 66 year old female with RA on immunosuppressive meds, COPD, CHF, A.fib , venous stais presents with acute on chronic copd exacerbation with hypercapnea and b/l pneumonia. new Ct findings of ? tumor in the lung/broncus , bronch in am remains afebrile normal wbc count venous staisis . blood cx- negative sputum cx- negative urine Legionella AG- negative Mycoplasma IGM- negative 1. COPD exacerbation with hypercapnea 2.CHF 3.b/l LE venous stasis 4.RA plan- completed 7 days of zithromax yesterday. advise to continue with zosyn for now, day #8 since still has bibailar ? effusions vs infiltrate and had bronch with bx done today. BIPAP and resp care as per creative developer. await bronch bx results. Pt. verbalizes full understanding of all above.
[2016-08-17] MEDS: Ipratropium 0.02% Inhal Soln (0.5 mg/2.5 ml) UD IH SCH ×2 (01:03→07:57)
[2016-08-17] MEDS: Levalbuterol 1.25 MG/3 ML Inhal Soln UD INH SCH ×2 (01:03→07:57)
[2016-08-17] MEDS: Piperacillin/Tazobact 3.375 GM in Sodium Chloride 0.9% 100 ML IVPB SCH ×2 (01:46→09:18)
[2016-08-17 06:36] LABS: HEMATOCRIT 38.8 % (34.0-47.0); MEAN CELL VOLUME 106.4 fl (81.0-99.0); MEAN CORPUSCULAR HEMOGLOBIN 32.9 pg (27.0-31.0); MEAN CORPUSCULAR HGB CONC 30.9 g/dL (33.0-37.0); RED CELL DISTRIBUTION WIDTH 16.9 % (11.5-14.5); WHITE BLOOD COUNT 10.1 K/uL (4.8-10.8)
[2016-08-17 06:51] LABS: BLOOD UREA NITROGEN 15 mg/dl (7-17); CHLORIDE 94 mmol/L (98-107); GFR AFRICAN-AMERICAN > 60; GLUCOSE,RANDOM 80 mg/dL (65-105); POTASSIUM 3.9 MMOL/L (3.6-5.0); SODIUM 141 mmol/l (132-148)
[2016-08-17 07:26] LABS: CARBON DIOXIDE 40 mmol/L (22-30)
[2016-08-17] MEDS: Mometasone 220 mcg/puff-14 puff Inh IH SCH (09:13)
[2016-08-17] MEDS: Saccharomyces Boulardi 250 mg Cap PO SCH (09:15)
[2016-08-17] MEDS: acetaZOLAMIDE 500 mg SR Cap PO SCH (09:15)
[2016-08-17] MEDS: Enoxaparin 40 mg Syringe SC SCH (09:16)
[2016-08-17] MEDS: Metoprolol Succinate 50 mg XL Tab PO SCH (09:17)
[2016-08-17] MEDS: Pantoprazole 40 mg EC Tab PO SCH (09:17)
[2016-08-17] MEDS: methylPREDNISolone 30 MG in Sodium Chloride 0.9% 50 ML IVPB SCH (09:17)
[2016-08-17] MEDS: Multivitamin With Minerals Tab PO SCH (09:17)
--- NOTE | 2016-08-17 09:53 | CP.PCM.PN ---
Subjective - Date & Time of Evaluation Date of Evaluation: 08/17/16 Time of Evaluation: 09:39 - Subjective Subjective: Interim entries in EMR reviewed. Patient has been well since FFB. Presently awake and seated upright in bed. Using BiPAP ventilation overnight and routine nasal canula during the day. Had some transient blood admixed with phlegm yesterday post-procedure. Vital signs are stable, oxygenation is good. Dependant edema of the LE's is unchanged, dependant rubor and mild cyanosis of the toes is unchanged. Rubor and cyanosis are not present when legs are elevated. Breath sounds are very much diminished bilaterally. No audible wheezes appreciated. Rare dry lower lobe rales. No palpable cervical or supraclavicular adenopathy palpable. Stable on current regimen. Solumedrol stopped and medrol 12MG POOD started. Antibiotics are both discontinued at this time. Aerosol therapy with levalbuterol and ipratropium reduces to Q8H schedule. Appears stable for discharge to [facility]. Continue overnight BiPAP ventilation and daytime standard nasal canula. Objective - Vital Signs/Intake and Output Vital Signs (last 24 hours): Temp Pulse Resp BP Pulse Ox 98.2 F 69 20 116/81 99 08/17/16 08:00 08/17/16 09:17 08/17/16 08:00 08/17/16 09:17 08/17/16 08:00 Intake and Output: 08/16/16 08/17/16 23:59 11:59 Intake Total 950 340 Balance 950 340 - Medications Medications: Current Medications Acetazolamide (Diamox Sequels 500 Mg Sr Cap) 500 mg PO DAILY [facility] Last Admin: 08/17/16 09:15 Dose: 500 mg Aspirin (Aspirin Chewable) 81 mg PO DAILY [facility] Last Admin: 08/17/16 09:14 Dose: 81 mg Atorvastatin Calcium (Lipitor) 10 mg PO HS [facility] Last Admin: 08/16/16 21:47 Dose: 10 mg Cholecalciferol (Vitamin D) 2,000 iu PO DAILY [facility] Last Admin: 08/17/16 09:18 Dose: 2,000 iu Enoxaparin Sodium (Lovenox) 40 mg SC DAILY [facility] PRN Reason: Protocol Last Admin: 08/17/16 09:16 Dose: 40 mg Fluticasone Propionate (Flonase) 2 spr KEVIN DAILY [facility] Last Admin: 08/17/16 09:15 Dose: 2 spr Folic Acid (Folic Acid) 2 mg PO BID [facility] Last Admin: 08/17/16 09:15 Dose: 2 mg Furosemide (Lasix) 40 mg PO DAILY [facility] Last Admin: 08/17/16 09:16 Dose: 40 mg Gabapentin (Neurontin) 100 mg PO DAILY [facility] Last Admin: 08/17/16 09:16 Dose: 100 mg Gabapentin (Neurontin) 300 mg PO HS [facility] Last Admin: 08/16/16 22:03 Dose: 300 mg Hydroxychloroquine Sulfate (Plaquenil) 400 mg PO DAILY [facility] Last Admin: 08/17/16 09:17 Dose: 400 mg Piperacillin Sod/Tazobactam (Sod 3.375 gm/ Sodium Chloride) 100 mls @ 100 mls/ hr IVPB Q8 [facility] Last Admin: 08/17/16 09:18 Dose: 100 mls/hr Methylprednisolone 30 mg/ (Sodium Chloride) 50.48 mls @ 100 mls/hr IVPB DAILY [facility] Last Admin: 08/17/16 09:17 Dose: 100 mls/hr Ipratropium [place] (Atrovent) 0.5 mg IH RQ6 [facility] Last Admin: 08/17/16 07:57 Dose: 0.5 mg Lactic Acid (Lac-Hydrin 12% Lotion (225 G)) 1 applic TOP TID [facility] Last Admin: 08/17/16 09:15 Dose: 1 applic Levalbuterol HCl (Xopenex) 1.25 mg INH RQ6 [facility] Last Admin: 08/17/16 07:57 Dose: 1.25 mg Methotrexate (Methotrexate) 15 mg PO [facility] PRN Reason: Protocol Last Admin: 08/11/16 10:31 Dose: 15 mg Metoprolol Succinate (Toprol Xl) 50 mg PO DAILY [facility] Last Admin: 08/17/16 09:17 Dose: 50 mg Mometasone Furoate (Asmanex Twisthaler 220 Mcg) 1 puff IH DAILY [facility] Last Admin: 08/17/16 09:13 Dose: 1 puff Multivitamins/Minerals (Therapeutic-M Tab) 1 tab PO DAILY [facility] Last Admin: 08/17/16 09:17 Dose: 1 tab Pantoprazole Sodium (Protonix Ec Tab) 40 mg PO DAILY [facility] Last Admin: 08/17/16 09:17 Dose: 40 mg Saccharomyces Boulardii (Florastor) 250 mg PO BID [facility] Last Admin: 08/17/16 09:15 Dose: 250 mg - Labs Labs: 08/17/16 05:45 08/17/16 05:45 Assessment and Plan (1) Acute on chronic respiratory failure with hypoxia and hypercapnia Status: Acute (2) COPD (chronic obstructive pulmonary disease) Status: Chronic (3) Atrial fibrillation Status: Acute (4) Leg edema Status: Chronic (5) Rheumatoid arthritis Status: Chronic (6) Pulmonary hypertension Status: Chronic
--- NOTE | 2016-08-17 10:31 | CP.PCM.DIS ---
Provider - Provider Date of Admission: 08/09/16 11:02 Attending physician: Buddy White MD Primary care physician: Dr Yusuf Consults: Pulm : Dr Yusuf Cardio : Dr Soto ID : Dr Cantor vascular Sx - Dr Valdez Time Spent in preparation of Discharge (in minutes): 30 Diagnosis - Discharge Diagnosis (1) Acute on chronic respiratory failure with hypoxia and hypercapnia Status: Acute Priority: High (2) Bilateral pneumonia Status: Acute (3) COPD exacerbation Status: Acute (4) HTN (hypertension) Status: Chronic (5) Rheumatoid arthritis Status: Chronic Priority: High (6) Multifocal atrial tachycardia Status: Chronic Priority: High (7) Pulmonary hypertension Status: Chronic Priority: High (8) Lung mass Status: Acute Hospital Course - Lab Results Lab Results: Micro Results 08/16/16 Unknown Other: Please Indicate Gram Stain - Final 08/13/16 19:25 Nose MRSA Culture (Admit) - Final MRSA NOT DETECTED 08/09/16 18:30 Sputum Gram Stain - Final 08/09/16 18:30 Sputum Sputum Culture - Final NORMAL SAPROPHYTIC KAREL 08/09/16 Unknown Naris MRSA Culture (Admit) - Final MRSA NOT DETECTED Most Recent Lab Values WBC 10.1 K/uL (4.8-10.8) 08/17/16 05:45 RBC 3.65 Mil/uL (3.80-5.20) L 08/17/16 05:45 Hgb 12.0 g/dL (12.0-16.0) 08/17/16 05:45 Hct 38.8 % (34.0-47.0) 08/17/16 05:45 MCV 106.4 fl (81.0-99.0) H 08/17/16 05:45 MCH 32.9 pg (27.0-31.0) H 08/17/16 05:45 MCHC 30.9 g/dL (33.0-37.0) L 08/17/16 05:45 RDW 16.9 % (11.5-14.5) H 08/17/16 05:45 Plt Count 149 K/uL (130-400) 08/17/16 05:45 MPV 9.1 fl (7.2-11.7) 08/10/16 05:00 Neut % (Auto) 94.6 % (50.0-75.0) H 08/10/16 05:00 Lymph % (Auto) 2.9 % (20.0-40.0) L 08/10/16 05:00 [place] % (Auto) 1.9 % (0.0-10.0) 08/10/16 05:00 Eos % (Auto) 0.4 % (0.0-4.0) 08/10/16 05:00 Baso % (Auto) 0.2 % (0.0-2.0) 08/10/16 05:00 Neut # 7.1 K/uL (1.8-7.0) H 08/10/16 05:00 Lymph # 0.2 K/uL (1.0-4.3) L 08/10/16 05:00 [place] # 0.1 K/uL (0.0-0.8) 08/10/16 05:00 Eos # 0.0 K/uL (0.0-0.7) 08/10/16 05:00 Baso # 0.0 K/uL (0.0-0.2) 08/10/16 05:00 Neutrophils % (Manual) 90 % (42-75) H 08/10/16 05:00 Lymphocytes % (Manual) 7 % (20-50) L 08/10/16 05:00 Monocytes % (Manual) 1 % (0-10) 08/10/16 05:00 Eosinophils % (Manual) 2 % (0-7) 08/10/16 05:00 Basophils % (Manual) 1 % (0-2) 08/09/16 11:02 Platelet Estimate Normal (NORMAL) 08/10/16 05:00 Anisocytosis (manual) Slight 08/10/16 05:00 Macrocytosis (manual) Slight 08/10/16 05:00 pCO2 80 mm/Hg (35-45) H* 08/14/16 12:13 pO2 41 mm/Hg (80-100) L* 08/14/16 12:13 HCO3 37.6 mmol/L (21-28) H 08/14/16 12:13 ABG pH 7.37 (7.35-7.45) 08/14/16 12:13 ABG Total CO2 48.7 mmol/L (22-28) H 08/14/16 12:13 ABG O2 Saturation 82.5 % (95-98) L 08/14/16 12:13 ABG O2 Content 14.2 ML/dL (15-23) L 08/14/16 12:13 ABG Base Excess 16.9 mmol/L (-2.0-3.0) H 08/14/16 12:13 ABG Hemoglobin 12.8 g/dL (11.7-17.4) 08/14/16 12:13 ABG Carboxyhemoglobin 2.2 % (0.5-1.5) H 08/14/16 12:13 POC ABG HHb (Measured) 16.8 % (0.0-5.0) H 08/14/16 12:13 ABG Methemoglobin 1.8 % (0.0-3.0) 08/14/16 12:13 ABG O2 Capacity 17.2 mL/dL (16-24) 08/14/16 12:13 Jorge Luis Test Yes 08/14/16 12:13 ABG Potassium 3.4 mmol/L (3.6-5.2) L 08/09/16 10:57 A-a O2 Difference 9.0 mm/Hg 08/14/16 12:13 Hgb O2 Saturation 79.2 % (95.0-98.0) L 08/14/16 12:13 Sodium 134.0 mmol/L (132-148) 08/09/16 10:57 Chloride 93.0 mmol/L (98-107) L 08/09/16 10:57 Glucose 126 mg/dL (65-105) H 08/09/16 10:57 Lactate 0.8 mmol/L (0.7-2.1) 08/09/16 10:57 Liter Flow 35 08/09/16 16:25 Vent Mode Bipap 08/11/16 08:25 Mechanical Rate 16 08/10/16 09:17 FiO2 21.0 % 08/14/16 12:13 Inspiratory BiPAP 16 08/11/16 08:25 Expiratory BiPAP 6 08/11/16 08:25 Blood Gas Comments C02=80 po2=41 08/14/16 12:13 Crit Value Called To chapo Sandoval 08/14/16 12:13 Crit Value Called By Jeremías 08/14/16 12:13 Crit Value Read Back Y 08/14/16 12:13 Blood Gas Notified Time 1219 08/14/16 12:13 Sodium 141 mmol/l (132-148) 08/17/16 05:45 Potassium 3.9 MMOL/L (3.6-5.0) 08/17/16 05:45 Chloride 94 mmol/L (98-107) L 08/17/16 05:45 Carbon Dioxide 40 mmol/L (22-30) H* 08/17/16 05:45 Anion Gap 11 (10-20) 08/17/16 05:45 BUN 15 mg/dl (7-17) 08/17/16 05:45 Creatinine 0.8 mg/dL (0.7-1.2) 08/17/16 05:45 Est GFR ( Amer) > 60 08/17/16 05:45 Est GFR (Non-Af Amer) > 60 08/17/16 05:45 Random Glucose 80 mg/dL (65-105) 08/17/16 05:45 Calcium 9.0 mg/dL (8.4-10.2) 08/17/16 05:45 Phosphorus 4.6 mg/dl (2.5-4.5) H 08/10/16 05:00 Magnesium 2.0 MG/DL (1.6-2.3) 08/10/16 05:00 Total Bilirubin 0.7 mg/dl (0.2-1.3) 08/09/16 11:02 AST 34 U/L (14-36) 08/09/16 11:02 ALT 29 U/L (9-52) 08/09/16 11:02 Alkaline Phosphatase 102 U/L (38-126) 08/09/16 11:02 Total Protein 7.8 G/DL (6.3-8.2) 08/09/16 11:02 Albumin 4.1 g/dL (3.5-5.0) 08/09/16 11:02 Globulin 3.7 gm/dL (2.2-3.9) 08/09/16 11:02 Albumin/Globulin Ratio 1.1 (1.0-2.1) 08/09/16 11:02 Triglycerides 77 mg/DL (0-149) 08/10/16 05:00 Cholesterol 159 mg/dL (0-199) 08/10/16 05:00 LDL Cholesterol Direct 77 mg/dL (0-129) 08/10/16 05:00 HDL Cholesterol 55 MG/DL (30-70) 08/10/16 05:00 Vitamin B12 776 pg/mL (239-931) 08/11/16 06:30 Folate > 20.0 ng/mL 08/11/16 06:30 Thyroxine (T4) 6.34 ug/dl (5.5-11.0) 08/10/16 05:00 TSH 3rd Generation 0.63 mIU/ML (0.46-4.68) 08/10/16 05:00 Arterial Blood Potassium 3.4 mmol/L (3.6-5.2) L 08/09/16 10:57 Influenza Typ A,B (EIA) Negative for flu a/b (NEGATIVE) 08/09/16 23:48 Urine Legionella Ag Not detected (Not Detected) 08/09/16 18:30 Mycoplasma pneumon IgG 3.32 (<=0.90) H 08/09/16 14:45 Mycoplasma pneumon IgM 58 U/mL (<770) 08/09/16 14:45 Blood Type A POSITIVE 08/15/16 19:01 Blood Type Confirm A POSITIVE 08/15/16 19:13 Antibody Screen Negative 08/15/16 19:01 BBK History Checked No verified bt 08/15/16 19:01 - Hospital Course Hospital Course: 66 year old female (PMHx: COPD, CHF, HTN, HLD, RA, Chronic LE Edema, MAT) presented to the ER via EMS with her with a chief complaint of SOB. Found to be in respiratory failure. She was transferred to ICU , placed on Bipap and high flow O2 via NC ,treated with IV Solumedrol tapering dose, Xopenex and IV antibiotics. Ct chest performed showed Left upper lobe mass suspicious for malignancy. Had Bronchoscopy 08/16 : noted extrinsic compression STEPHEN , lesion found apical post segement of STEPHEN. Brushings obtained. 1. Acute on Chronic Respiratory Failure with Hypoxia and Hypercapnea likely sec to COPD and PNA Pt comfortable on 3 liters NC - saturation 90-95% on BIPAP 16/6/35 % RR 16 at bedtime Pulmonary following closely, Dr. Yusuf- cleared pt for d/c to TCU Recieved OIV Solumedrol - now changed to PO Medrol completed IV abx course - Zosyn and Zithromax IV Cont Xopenex neb tx and inhaled steroids CT chest showed STEPHEN mass suspicious for malignancy with extension to mediastinum , hilum , tumor invasion to left main pulmonary artery and encasement of left upper lobe bronchus s/p Bronchoscopy 08/16 - noted STEPHEN lesion Continue Diamox daily May likely need Home Bipap 2. COPD exacerbation Pulmonology Dr. Yusuf consulted and following tapered Solumedrol IV , changed to PO Continue Xopenex ,Asmanex and Spiriva 3. Bilateral pneumonia Chest X Ray 08/09/16 shows new RLL and STEPHEN infiltrates completed IV abx - Zosyn and Azithro ID consulted- Dr Cantor Rapid Influenza: neg Sputum c/s: negative Legionella: neg Mycoplasm IgM : neg Ct chest showed no infiltrate, STEPHEN mass suspicious for malignancy. 4.Hx of Multifocal Atrial Tachycardia and episode of A Fib on ASA [address] soto consulted 5. Chronic CHF (congestive heart failure), Diastolic dysfunction/Pulm HTN stable ECHO 04/20 : normal EF Metoprolol XL 50 mg PO 1x/day Lasix to 40 mg daily 6. HTN (hypertension) controlled on Metoprolol XL 50 mg PO QD 7. Hyperlipidemia Atorvastatin 10 mg PO QHS 8. GERD (gastroesophageal reflux disease) Omeprazole 20 mg PO 1x/day 9. Rheumatoid arthritis with Interstitial Lung Disease Methotrexate 15 mg PO 1x/day on Saturday Folic Acid 2 mg PO 2x/day Plaquenil 400 mg PO 1x/day 10. Peripheral Vascular Dis/Venous Insufficiency Vascular Sx consulted Art Doppler studies LE: decrease flow right more than left Neg DVT on LE Venous US cont ASA Lac-hydrin lotion fo dry skin LE 11. Prophylactic measure Lovenox 40 mg SC 1x/day for DVT Prophylaxis Omeprazole 20 mg PO 1x/day for GI Prophylaxis Florastor 250 mg PO 2x/day as patient has been placed on antibiotics for the Bilateral Lung Infiltrates MVI PO 1x/day Cholecalciferal 2,000 Units PO 1x/day Discharge Exam - Head Exam Head Exam: ATRAUMATIC, NORMAL INSPECTION, NORMOCEPHALIC - Eye Exam Eye Exam: EOMI, Normal appearance Pupil Exam: NORMAL ACCOMODATION - ENT Exam ENT Exam: Mucous Membranes Moist, Normal External Ear Exam - Neck Exam Neck exam: Full Rom - Respiratory Exam Respiratory Exam: Decreased Breath Sounds, Rales, Rhonchi. absent: Wheezes, Respiratory Distress - Cardiovascular Exam Cardiovascular Exam: REGULAR RHYTHM, +S1, +S2 - GI/Abdominal Exam GI & Abdominal Exam: Normal Bowel Sounds, Soft. absent: Tenderness - Extremities Exam Extremities exam: pedal edema, pedal pulses present Additional comments: decrease periph pulses bilateral LE cold extremities bilateral LE edema and stasis skin changes - Back Exam Back exam: FULL ROM. absent: CVA tenderness (L), CVA tenderness (R) - Neurological Exam Neurological exam: Alert, CN II-XII Intact, Oriented x3, Reflexes Normal - Psychiatric Exam Psychiatric exam: Normal Affect, Normal Mood - Skin Skin Exam: Dry, Intact, Normal Color Discharge Plan - Follow Up Plan Condition: GOOD Disposition: TRANSF TO SNF Instructions: COPD (Chronic Obstructive Pulmonary Disease) (DC) Additional Instructions: d/c pt to TCU Referrals: Chapo Yusuf MD [Family Provider] - Clinical Quality Measures - CQM - Heart Failure Ejection Fraction: 40 % or Greater Left Ventricular Function to be assessed after discharge: Yes FREDDY Inhibitor Prescribed: No Contraindication/Reason for not providing: low normal BP Beta-Alphonse Prescribed: Metoprolol Succinate Angiotensin II Receptor Alphonse Prescribed: No Contraindication/Reason for not providing: not indicated, BP low normal AnticoagulationTherapy for Atrial Fibrillation/Atrialflutter: No Contraindication/Reason for not providing: only one episode A fib - mostly MATs Aldosterone Antagonist Prescribed: No Contraindication/Reason for not providing: not indicated , Bp olow Hydralazine Nitrate Prescribed: No Contraindication/Reason for not providing: BP low normal Implantable Cardioverter Defibrillator Therapy: No Contraindication/Reason for not providing: Not indicated Cardiac Resynchronization Therapy Prescribed: No Contraindication/Reason for not providing: not indicated Will be discharged to: Longterm Facility Follow Up Date (must be within 7 days from discharge): 08/18/16 Follow Up Time: 09:00 - Date & Time of Discharge Summary Date of Discharge Summary: 08/17/16 Time of Discharge Summary: 17:08
[2016-08-17] MEDS ORDERED: Levalbuterol 1.25 MG/3 ML Inhal Soln UD INH SCH (15:00)
[2016-08-17] MEDS ORDERED: Ipratropium 0.02% Inhal Soln (0.5 mg/2.5 ml) UD IH SCH (15:00)
[2016-08-17 15:46] VITALS: BP 122/77; PULSE 66; RESP 20; TEMP 98.2; O2SAT 92
[2016-08-18] MEDS ORDERED: Pantoprazole 40 mg EC Tab PO SCH (00:01)
== END 2016-08-17 17:00 | DRG 166 ==
LOC: H.ER 10:10 → H.ERHOLD 11:02 → H.TEL 14:03 → H.ICU/CCU 16:58 → H.TEL 08-13 17:26
PROVIDERS: ADMIT Family Medicine; ATTEND Family Medicine
PROC: 5A09557 Assistance with Respiratory Ventilation, Greater than 96 Consecutive Hours, Continuous Positive Airway Pressure (ICD-10-PCS; 2016-08-09)
PROC: 3E0F73Z Introduction of Anti-inflammatory into Respiratory Tract, Via Natural or Artificial Opening (ICD-10-PCS; 2016-08-09)
PROC: 0BBG8ZX Excision of Left Upper Lung Lobe, Via Natural or Artificial Opening Endoscopic, Diagnostic (ICD-10-PCS; principal; 2016-08-16 07:45)
DX: J96.21 Acute and chronic respiratory failure with hypoxia (principal); J18.9 Pneumonia, unspecified organism; J44.0 Chronic obstructive pulmonary disease with (acute) lower respiratory infection; I50.32 Chronic diastolic (congestive) heart failure; I27.2 Other secondary pulmonary hypertension; I11.0 Hypertensive heart disease with heart failure; E66.01 Morbid (severe) obesity due to excess calories; I47.1 Supraventricular tachycardia; J98.11 Atelectasis; J44.1 Chronic obstructive pulmonary disease with (acute) exacerbation; J96.22 Acute and chronic respiratory failure with hypercapnia; I48.0 Paroxysmal atrial fibrillation; Z99.81 Dependence on supplemental oxygen; M06.9 Rheumatoid arthritis, unspecified; Z87.891 Personal history of nicotine dependence; Z96.641 Presence of right artificial hip joint; K21.9 Gastro-esophageal reflux disease without esophagitis; E78.5 Hyperlipidemia, unspecified; E78.00 Pure hypercholesterolemia, unspecified; Z68.35 Body mass index [BMI] 35.0-35.9, adult; I87.2 Venous insufficiency (chronic) (peripheral); I73.9 Peripheral vascular disease, unspecified; M48.00 Spinal stenosis, site unspecified; Z91.041 Radiographic dye allergy status; Z91.013 Allergy to seafood; Z79.82 Long term (current) use of aspirin

== ENCOUNTER 2016-08-17 14:00 | Inpatient (IN) | payer OTHER, BC ==
[2016-08-17] MEDS: Levalbuterol 1.25 MG/3 ML Inhal Soln UD INH SCH (23:38)
[2016-08-17] MEDS: Ipratropium 0.02% Inhal Soln (0.5 mg/2.5 ml) UD IH SCH (23:38)
[2016-08-18] MEDS: Ipratropium 0.02% Inhal Soln (0.5 mg/2.5 ml) UD IH SCH ×3 (08:04→23:33)
[2016-08-18] MEDS: Levalbuterol 1.25 MG/3 ML Inhal Soln UD INH SCH ×3 (08:04→23:33)
[2016-08-18] MEDS: Mometasone 220 mcg/puff-14 puff Inh IH SCH (08:32)
[2016-08-18] MEDS: Enoxaparin 40 mg Syringe SC SCH (08:35)
[2016-08-18] MEDS: Metoprolol Succinate 50 mg XL Tab PO SCH (08:35)
[2016-08-18] MEDS: Multivitamin With Minerals Tab PO SCH (08:37)
[2016-08-18] MEDS: Pantoprazole 40 mg EC Tab PO SCH (08:37)
--- NOTE | 2016-08-18 10:43 | CP.PCM.HP ---
History of Present Illness - History of Present Illness History of Present Illness: 66 yo female with history of COPD, CHF, HTN, RA, Chronic Leg Edema and AFib brought in on 08/09/2016 because of SOB. Found to be in Acute Respiratory Failure she was admitted in ICU. CT of the chest showed left upper lobe mass. She was placed on BIPAP and high flow O2 and was started on IV SoluMedrol, Xopenex and IV antibiotics. On 08/16/2016, bronchoscopy was done which revealed extrinsic compression on apical posterior segment of STEPHEN. A small fungating completely obstructing friable lesion was found proximally on the orifice of the apical posterior segment of STEPHEN. Bronchial washings were sent. Gram stain showed normal saprophytic aaliyah. Cytology and culture are still pending. With patient being stable, she was transferred to TCU for continuation of management and PT. Present on Admission - Present on Admission Any Indicators Present on Admission: No History of DVT/PE: No History of Uncontrolled Diabetes: No Urinary Catheter: No Decubitus Ulcer Present: No Review of Systems - Review of Systems All systems: reviewed and no additional remarkable complaints except (aside from those mentioned above, 12 point system review were negative by me) Past Patient History - Infectious Disease Hx of Infectious Diseases: None - Tetanus Immunizations Tetanus Immunization: Unknown - Past Medical History & Family History Past Medical History?: Yes Past Family History: Reviewed and not pertinent - Past Social History Smoking Status: Former Smoker Alcohol: None Drugs: Denies Home Situation {Lives}: Other (lives with ) - CARDIAC Hx Atrial Fibrillation: Yes Hx Cardia Arrhythmia: Yes (MAT) Hx Congestive Heart Failure: Yes Hx Hypercholesterolemia: Yes Hx Hypertension: Yes Hx Peripheral Edema: Yes - PULMONARY Hx Asthma: No Hx Chronic Obstructive Pulmonary Disease (COPD): Yes Hx Pneumonia: No - NEUROLOGICAL Hx Neurological Disorder: No - HEENT Hx HEENT Problems: No - RENAL Hx Chronic Kidney Disease: No - ENDOCRINE/METABOLIC Hx Endocrine Disorders: No - HEMATOLOGICAL/ONCOLOGICAL Hx AIDS: No Hx Human Immunodeficiency Virus (HIV): No - INTEGUMENTARY Other/Comment: Chronic lower extremity changes related to dependant edema - MUSCULOSKELETAL/RHEUMATOLOGICAL Hx Falls: No Hx Rheumatoid Arthritis: Yes - GASTROINTESTINAL Hx Gastrointestinal Disorders: No Hx Gastroesophageal Reflux: Yes - GENITOURINARY/GYNECOLOGICAL Hx Genitourinary Disorders: No - PSYCHIATRIC Hx Substance Use: No - SURGICAL HISTORY Hx Surgeries: Yes Hx Cholecystectomy: Yes - ANESTHESIA Hx Anesthesia: Yes Hx Anesthesia Reactions: No Hx Malignant Hyperthermia: No Meds Allergies/Adverse Reactions: Allergies Allergy/AdvReac Type Severity Reaction Status Date / Time iodine Allergy RASH Verified 08/17/16 17:57 shellfish derived Allergy RASH Verified 08/17/16 17:57 strawberry Allergy RASH Verified 08/17/16 17:57 Physical Exam - Constitutional Appears: No Acute Distress - Head Exam Head Exam: ATRAUMATIC - Eye Exam Eye Exam: absent: Scleral icterus - ENT Exam ENT Exam: Mucous Membranes Moist - Neck Exam Neck exam: Negative for: Meningismus - Respiratory Exam Respiratory Exam: Decreased Breath Sounds. absent: Wheezes, Respiratory Distress - Cardiovascular Exam Cardiovascular Exam: REGULAR RHYTHM, +S1, +S2 - GI/Abdominal Exam GI & Abdominal Exam: Soft. absent: Tenderness - Rectal Exam Rectal Exam: Deferred - Extremities Exam Extremities exam: Positive for: pedal edema - Back Exam Back exam: NORMAL INSPECTION - Neurological Exam Neurological exam: Alert, Oriented x3 - Psychiatric Exam Psychiatric exam: Normal Affect - Skin Additional comments: multiple non-tender, flat hematomas on upper limbs Results - Vital Signs Recent Vital Signs: Last Vital Signs Temp 97.7 F 08/18/16 08:38 Pulse 58 L 08/18/16 08:38 Resp 20 08/18/16 08:38 BP 102/56 L 08/18/16 08:39 Pulse Ox 97 08/18/16 08:38 Assessment & Plan (1) Acute on chronic respiratory failure with hypoxia and hypercapnia Status: Acute Priority: High (2) COPD exacerbation Status: Acute (3) Bilateral pneumonia Status: Acute (4) Atrial fibrillation Status: Chronic Priority: High (5) History of CHF (congestive heart failure) Status: Chronic (6) Hypertension Status: Chronic Priority: High (7) Rheumatoid arthritis Status: Chronic Priority: High (8) DVT prophylaxis Status: Acute - Assessment and Plan (Free Text) Assessment: 66 yo female with history of COPD, CHF, HTN, RA, Chronic Leg Edema and AFib brought in on 08/09/2016 because of SOB. Found to be in Acute Respiratory Failure she was admitted in ICU. CT of the chest showed left upper lobe mass. She was placed on BIPAP and high flow O2 and was started on IV SoluMedrol, Xopenex and IV antibiotics. On 08/16/2016, bronchoscopy was done which revealed extrinsic compression on apical posterior segment of STEPHEN. A small fungating completely obstructing friable lesion was found proximally on the orifice of the apical posterior segment of STEPHEN. Bronchial washings were sent. Gram stain showed normal saprophytic aaliyah. Cytology and culture are still pending. With patient being stable, she was transferred to TCU for continuation of management and PT. 1. Acute on Chronic Respiratory Failure with Hypoxia and Hypercapnea likely sec to COPD and PNA pt comfortable on 3 liters NC with 90-95% O2 saturation and BIPAP 16/6 on 35% FIO2 at bedtime Dr Yusuf following patient very closely continue Xopenex, steroid inhaler and PO Medrol received and completed course of IV Zosyn and Zithromax CT chest showed STEPHEN mass 2. COPD exacerbation continue Xopenex, inhaled steroid and PO steroid on O2 via NC during the day and BIPAP at night 3. Bilateral pneumonia CXray showed bibasilar opacities and STEPHEN mass received IV Zosyn and Azithromycin CT chest showed no infiltrate, STEPHEN mass noted again 4. A Fibrillation rate controlled, presently in sinus continue ASA and Metoprolol Dr Cole, hull drafter, on consult 5. Chronic CHF (congestive heart failure), Diastolic dysfunction/Pulm HTN stable ECHO 04/20: normal EF continue Metoprolol and Lasix 6. HTN (hypertension) BP controlled continue Metoprolol and Lasix 7. Rheumatoid arthritis with Interstitial Lung Disease continue Methotrexate 15 mg PO q Saturday Folic Acid 2 mg PO BID Plaquenil 400 mg PO daily 8. DVT prophylaxis Lovenox 40mg SC daily
[2016-08-18] MEDS: acetaZOLAMIDE 500 mg SR Cap PO SCH (16:36)
[2016-08-19] MEDS: Levalbuterol 1.25 MG/3 ML Inhal Soln UD INH SCH ×2 (07:10→15:06)
[2016-08-19] MEDS: Ipratropium 0.02% Inhal Soln (0.5 mg/2.5 ml) UD IH SCH ×2 (07:10→15:05)
[2016-08-19] MEDS: Pantoprazole 40 mg EC Tab PO SCH (08:28)
[2016-08-19] MEDS: Multivitamin With Minerals Tab PO SCH (08:28)
[2016-08-19] MEDS: acetaZOLAMIDE 500 mg SR Cap PO SCH (08:29)
[2016-08-19] MEDS: Enoxaparin 40 mg Syringe SC SCH (08:40)
[2016-08-19] MEDS: Metoprolol Succinate 50 mg XL Tab PO SCH (08:40)
[2016-08-19] MEDS: Mometasone 220 mcg/puff-14 puff Inh IH SCH (08:41)
[2016-08-20] MEDS: Levalbuterol 1.25 MG/3 ML Inhal Soln UD INH SCH ×4 (00:06→23:43)
[2016-08-20] MEDS: Ipratropium 0.02% Inhal Soln (0.5 mg/2.5 ml) UD IH SCH ×4 (00:06→23:43)
[2016-08-20 06:43] LABS: MEAN CELL VOLUME 105.9 fl (81.0-99.0); MEAN CORPUSCULAR HEMOGLOBIN 32.8 pg (27.0-31.0); MEAN CORPUSCULAR HGB CONC 30.9 g/dL (33.0-37.0); RED CELL DISTRIBUTION WIDTH 16.6 % (11.5-14.5); WHITE BLOOD COUNT 8.7 K/uL (4.8-10.8)
[2016-08-20 07:06] LABS: BLOOD UREA NITROGEN 12 mg/dl (7-17); CALCIUM 9.1 mg/dL (8.4-10.2); CHLORIDE 94 mmol/L (98-107); GFR AFRICAN-AMERICAN > 60; GLUCOSE,RANDOM 87 mg/dL (65-105); POTASSIUM 4.1 MMOL/L (3.6-5.0); SODIUM 142 mmol/l (132-148)
[2016-08-20 07:28] LABS: CARBON DIOXIDE 42 mmol/L (22-30)
[2016-08-20] MEDS: Mometasone 220 mcg/puff-14 puff Inh IH SCH (08:25)
[2016-08-20] MEDS: Enoxaparin 40 mg Syringe SC SCH (08:28)
[2016-08-20] MEDS: acetaZOLAMIDE 500 mg SR Cap PO SCH (08:28)
[2016-08-20] MEDS: Pantoprazole 40 mg EC Tab PO SCH (08:29)
[2016-08-20] MEDS: Multivitamin With Minerals Tab PO SCH (08:29)
[2016-08-20] MEDS: Metoprolol Succinate 50 mg XL Tab PO SCH (08:30)
--- NOTE | 2016-08-20 11:01 | CP.PCM.CON ---
History of Present Illness - History of Present Illness History of Present Illness: This 66 year old female with chronic hypercapnic/hypoxemic respiratory failure was admitted to acute medicine for exacerbation/decompensation and has done well on BiPAP ventilator and aerosol therapy. She was found to have a STEPHEN mass density on CT chest and underwent flexible bronchoscopy prior to discharge. She is doing well here in [facility] and is able to participate in physical therapy to regain strength. Past Patient History - Infectious Disease Hx of Infectious Diseases: None - Tetanus Immunizations Tetanus Immunization: Unknown - Past Medical History & Family History Past Medical History?: Yes Past Family History: Reviewed and not pertinent - Past Social History Smoking Status: Former Smoker Alcohol: None Drugs: Denies Home Situation {Lives}: Other (lives with ) - CARDIAC Hx Cardiac Disorders: Yes Hx Congestive Heart Failure: Yes Hx Hypercholesterolemia: Yes Hx Hypertension: Yes - PULMONARY Hx Chronic Obstructive Pulmonary Disease (COPD): Yes - NEUROLOGICAL Hx Neurological Disorder: No - HEENT Hx HEENT Problems: No - RENAL Hx Chronic Kidney Disease: No - ENDOCRINE/METABOLIC Hx Endocrine Disorders: No - HEMATOLOGICAL/ONCOLOGICAL Hx AIDS: No Hx Human Immunodeficiency Virus (HIV): No - INTEGUMENTARY Other/Comment: Chronic lower extremity changes related to dependant edema - MUSCULOSKELETAL/RHEUMATOLOGICAL Hx Arthritis: Yes Hx Rheumatoid Arthritis: Yes - GASTROINTESTINAL Hx Gastrointestinal Disorders: No Hx Gastroesophageal Reflux: Yes - GENITOURINARY/GYNECOLOGICAL Hx Genitourinary Disorders: No - PSYCHIATRIC Hx Substance Use: No - SURGICAL HISTORY Hx Surgeries: Yes Hx Cholecystectomy: Yes - ANESTHESIA Hx Anesthesia: Yes Hx Anesthesia Reactions: No Hx Malignant Hyperthermia: No Meds Allergies/Adverse Reactions: Allergies Allergy/AdvReac Type Severity Reaction Status Date / Time shellfish derived Allergy RASH Verified 08/17/16 17:57 strawberry Allergy RASH Verified 08/17/16 17:57 - Medications Medications: Current Medications Acetazolamide (Diamox Sequels 500 Mg Sr Cap) 500 mg PO DAILY [facility] Last Admin: 08/20/16 08:28 Dose: 500 mg Aspirin (Aspirin Chewable) 81 mg PO DAILY [facility] Last Admin: 08/20/16 08:27 Dose: 81 mg Atorvastatin Calcium (Lipitor) 10 mg PO HS [facility] Last Admin: 08/19/16 21:10 Dose: 10 mg Cholecalciferol (Vitamin D) 2,000 iu PO DAILY [facility] Last Admin: 08/20/16 08:30 Dose: 2,000 iu Enoxaparin Sodium (Lovenox) 40 mg SC DAILY [facility] PRN Reason: Protocol Last Admin: 08/20/16 08:28 Dose: 40 mg Fluticasone Propionate (Flonase) 2 spr KEVIN DAILY [facility] Last Admin: 08/20/16 08:27 Dose: 2 spr Folic Acid (Folic Acid) 2 mg PO BID [facility] Last Admin: 08/20/16 08:28 Dose: 2 mg Furosemide (Lasix) 40 mg PO DAILY [facility] Last Admin: 08/20/16 08:28 Dose: 40 mg Gabapentin (Neurontin) 100 mg PO DAILY [facility] Last Admin: 08/20/16 08:29 Dose: 100 mg Gabapentin (Neurontin) 300 mg PO HS [facility] Last Admin: 08/19/16 21:10 Dose: 300 mg Hydroxychloroquine Sulfate (Plaquenil) 400 mg PO DAILY [facility] Last Admin: 08/20/16 08:29 Dose: 400 mg Ipratropium [place] (Atrovent) 0.5 mg IH RQ8 [facility] Last Admin: 08/20/16 07:28 Dose: 0.5 mg Lactic Acid (Lac-Hydrin 12% Lotion (225 G)) 1 applic TOP TID [facility] Last Admin: 08/20/16 08:25 Dose: 1 u Levalbuterol HCl (Xopenex) 1.25 mg INH RQ8 [facility] Last Admin: 08/20/16 07:28 Dose: 1.25 mg Methotrexate (Methotrexate) 15 mg PO SAT [facility] PRN Reason: Protocol Last Admin: 08/18/16 08:33 Dose: 15 mg Methylprednisolone (Medrol) 16 mg PO DAILY [facility] Last Admin: 08/20/16 08:28 Dose: 16 mg Metoprolol Succinate (Toprol Xl) 50 mg PO DAILY [facility] Last Admin: 08/20/16 08:30 Dose: 50 mg Mometasone Furoate (Asmanex Twisthaler 220 Mcg) 1 puff IH DAILY [facility] Last Admin: 08/20/16 08:25 Dose: 1 u Multivitamins/Minerals (Therapeutic-M Tab) 1 tab PO DAILY [facility] Last Admin: 08/20/16 08:29 Dose: 1 tab Pantoprazole Sodium (Protonix Ec Tab) 40 mg PO DAILY [facility] Last Admin: 08/20/16 08:29 Dose: 40 mg Physical Exam - Additional Findings Additional findings: Overweight female who is awake and oriented and alert. Mild cyanosis of toes on both feet when in dependant position. Dorsalis pedis pulse is decreased but present bilaterally. No calf tenderness or Homans sign. Chronic dermatitis changes secondary to long-standing dependent edema is noted in both lower extremities. No palpable lymphadenopathy. Pharynx is pink and mucous membranes are moist. No exudate. Conjunctivae are pink and there is no scleral icterus. Pupils are equal and reactive. Neck supple and trachea is midline. No neck vein distention or carotid bruit. No palpable thyromegaly. Increased AP diameter of the thorax is noted mild cervical kyphosis. No dullness to percussion. Breath sounds are markedly diminished bilaterally. Dry rales are heard in the lower lung andrade posteriorly. No audible wheezing, no bronchial breathing or egophony. Heart sounds are distant. Rhythm is irregularly irregular. Abdomen is fleshy, obese and nontender. Bowel sounds are normal. Results - Vital Signs Recent Vital Signs: Last Vital Signs Temp 97.9 F 08/20/16 08:12 Pulse 72 08/20/16 08:30 Resp 18 08/20/16 08:12 BP 107/52 L 08/20/16 08:30 Pulse Ox 100 08/20/16 08:12 - Labs Result Diagrams: 08/24/16 06:51 08/24/16 06:51 Labs: Laboratory Results - last 24 hr 08/20/16 08/20/16 06:00 06:00 WBC 8.7 RBC 3.58 L Hgb 11.7 L Hct 38.0 MCV 105.9 H MCH 32.8 H MCHC 30.9 L RDW 16.6 H Plt Count 142 Sodium 142 Potassium 4.1 Chloride 94 L Carbon Dioxide 42 H* Anion Gap 10 BUN 12 Creatinine 0.7 Est GFR ( Amer) > 60 Est GFR (Non-Af Amer) > 60 Random Glucose 87 Calcium 9.1 Assessment & Plan (1) Lung mass Status: Chronic Priority: High (2) Hypercapnic respiratory failure, chronic Status: Chronic Priority: High (3) COPD (chronic obstructive pulmonary disease) Status: Chronic Priority: High - Assessment and Plan (Free Text) Assessment: Awaiting path reports from bronchoscopy. Continue present medical regimen. Continue NIPPV with BiPAP mask ventilator for overnight use. Physical therapy as tolerated with supplemental O2 at 3LPM for exercise. - Date & Time Date: 08/20/16 Time: 11:00
[2016-08-21] MEDS: Levalbuterol 1.25 MG/3 ML Inhal Soln UD INH SCH ×2 (07:29→15:28)
[2016-08-21] MEDS: Ipratropium 0.02% Inhal Soln (0.5 mg/2.5 ml) UD IH SCH ×2 (07:29→15:28)
[2016-08-21] MEDS: Mometasone 220 mcg/puff-14 puff Inh IH SCH (08:53)
[2016-08-21] MEDS: Metoprolol Succinate 50 mg XL Tab PO SCH (08:54)
[2016-08-21] MEDS: Pantoprazole 40 mg EC Tab PO SCH (08:54)
[2016-08-21] MEDS: Multivitamin With Minerals Tab PO SCH (08:54)
[2016-08-21] MEDS: Enoxaparin 40 mg Syringe SC SCH (08:55)
[2016-08-21] MEDS: acetaZOLAMIDE 500 mg SR Cap PO SCH (08:56)
--- NOTE | 2016-08-21 10:56 | CP.PCM.PN ---
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 Will discuss with the patient and her . Will call oncology for therapeutic plan. She is not a surgical candidate. Objective - Vital Signs/Intake and Output Vital Signs (last 24 hours): Temp Pulse Resp BP Pulse Ox 97.2 F L 90 18 112/65 98 08/21/16 08:12 08/21/16 08:54 08/21/16 08:12 08/21/16 08:54 08/21/16 08:12 - Medications Medications: Current Medications Acetazolamide (Diamox Sequels 500 Mg Sr Cap) 500 mg PO DAILY [facility] Last Admin: 08/21/16 08:56 Dose: 500 mg Aspirin (Aspirin Chewable) 81 mg PO DAILY [facility] Last Admin: 08/21/16 08:56 Dose: 81 mg Atorvastatin Calcium (Lipitor) 10 mg PO HS [facility] Last Admin: 08/20/16 21:49 Dose: 10 mg Cholecalciferol (Vitamin D) 2,000 iu PO DAILY [facility] Last Admin: 08/21/16 08:56 Dose: 2,000 iu Fluticasone Propionate (Flonase) 2 spr KEVIN DAILY [facility] Last Admin: 08/21/16 08:54 Dose: 2 spr Folic Acid (Folic Acid) 2 mg PO BID [facility] Last Admin: 08/21/16 08:56 Dose: 2 mg Furosemide (Lasix) 40 mg PO DAILY [facility] Last Admin: 08/21/16 08:54 Dose: 40 mg Gabapentin (Neurontin) 100 mg PO DAILY [facility] Last Admin: 08/21/16 09:50 Dose: 100 mg Gabapentin (Neurontin) 300 mg PO HS [facility] Last Admin: 08/20/16 21:49 Dose: 300 mg Hydroxychloroquine Sulfate (Plaquenil) 400 mg PO DAILY [facility] Last Admin: 08/21/16 08:54 Dose: 400 mg Ipratropium [place] (Atrovent) 0.5 mg IH RQ8 [facility] Last Admin: 08/21/16 07:29 Dose: 0.5 mg Lactic Acid (Lac-Hydrin 12% Lotion (225 G)) 1 applic TOP TID [facility] Last Admin: 08/21/16 08:55 Dose: 1 u Levalbuterol HCl (Xopenex) 1.25 mg INH RQ8 [facility] Last Admin: 08/21/16 07:29 Dose: 1.25 mg Methotrexate (Methotrexate) 15 mg PO SAT [facility] PRN Reason: Protocol Last Admin: 08/18/16 08:33 Dose: 15 mg Methylprednisolone (Medrol) 16 mg PO DAILY [facility] Last Admin: 08/21/16 08:55 Dose: 16 mg Metoprolol Succinate (Toprol Xl) 50 mg PO DAILY [facility] Last Admin: 08/21/16 08:54 Dose: 50 mg Mometasone Furoate (Asmanex Twisthaler 220 Mcg) 1 puff IH DAILY [facility] Last Admin: 08/21/16 08:53 Dose: 1 u Multivitamins/Minerals (Therapeutic-M Tab) 1 tab PO DAILY [facility] Last Admin: 08/21/16 08:54 Dose: 1 tab Pantoprazole Sodium (Protonix Ec Tab) 40 mg PO DAILY [facility] Last Admin: 08/21/16 08:54 Dose: 40 mg - Labs Labs: 08/20/16 06:00 08/20/16 06:00 Assessment and Plan (1) Lung mass Status: Chronic (2) Hypercapnic respiratory failure, chronic Status: Chronic (3) COPD (chronic obstructive pulmonary disease) Status: Chronic
--- NOTE | 2016-08-21 19:25 | CP.PCM.PN ---
Subjective - Date & Time of Evaluation Date of Evaluation: 08/21/16 Time of Evaluation: 14:00 - Subjective Subjective: Hospitalist Progress Note (Patient was seen and examined with present at 2:00 PM on 08/21/16 [id number]) 66 year old female (PMHx: COPD, CHF, HTN, HLD, RA, Chronic LE Edema, MAT) presented to the [facility] ER on 08/09/16 via EMS with her with a chief complaint of SOB. She was found to be in respiratory failure secondary to COPD Exacerbation and Bilateral Pneumonia. She was then transferred to ICU , placed on Bipap and high flow O2 via NC ,treated with IV Solumedrol tapering dose, Xopenex and IV antibiotics. CT Chest performed showed Left Upper Lobe mass suspicious for malignancy. She therefore underwent a Bronchoscopy on 08/16/16 and this showed extrinsic compression of STEPHEN and brushings were sent to Pathology for review. She was stablized and then transferred to [facility] TCU for further management and PT/OT. 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 and states that she needs some time to process the news and then she will make a decision as to if she would like to pursue treatment NO other complaints at this time upon FULL ROS Physical Exam - Constitutional Appears: No Acute Distress Additional comments: Patient is speaking in full sentences and appears to be comfortable on Oxygen 3L via NC NO accessory muscles of respiration being used and no nasal flaring - Head Exam Additional comments: 1 x .5 cm pink papule in the junction of the occipital and bilateral parietal scalps - Eye Exam Eye Exam: EOMI, Normal appearance, PERRL Pupil Exam: NORMAL ACCOMODATION, PERRL - ENT Exam Additional comments: Ruptured Central Nasal Septum (she has a history of this) Mucous membranes are dry NO pharyngeal erythema/exudate NO thyromegaly NO cervical/supraclavicular/submandibular lymphadenopathy - Neck Exam Additional comments: Please see ENT Exam - Respiratory Exam Additional comments: Bilateral bibasilar inspiratory crackles NO wheezing heard - Cardiovascular Exam Cardiovascular Exam: Irregular Rhythm Additional comments: Irregularly irregular NO M/R/G - GI/Abdominal Exam Additional comments: BSx4, Soft, NT, Central Obesity therefore Liver and Spleen could not be palpated , NO guarding/rebound tenderness - Extremities Exam Additional comments: BILATERAL PULSES ARE STRONG AND EQUAL CAPILLARY REFILL IS 2 SECONDS BILATERAL LOWER LEGS SHOW 1+ EDEMA UPTO THE BILATERAL TIBIAL TUBEROSITIES. BILATERAL LOWER LEGS ANTERIOR SURFACE HAS HYPERKERATOSIS AND AREAS OF PEELING OF THE SKIN WITHOUT EVIDENCE OF CELLULITIS BILATERAL FEET TOES SHOW CYANOSIS AND ARE SLIGHTLY COOL TO THE TOUCH - Neurological Exam Neurological exam: Alert, CN II-XII Intact, Oriented x3 - Psychiatric Exam Psychiatric exam: Normal Affect, Normal Mood 1. Hx Acute on Chronic Respiratory Failure with Hypoxia and Hypercapnea likely sec to COPD Exacerbation and PNA Patient is currently doing well on O2 via NC at 3 liters Pulmonary following closely, Dr. Yusuf Methylprednisilone 16 mg PO 1x/day She completed IV antibiotic course - Zosyn and Azythromycin Continue Xopenex neb treatment and Asmanex s/p Bronchoscopy 08/16 - noted STEPHEN lesion Continue Diamox daily May need Home Bipap 17/08 I/E, 35% FiO2, RR 16 at bedtime 2. STEPHEN Lobe Mass CT Chest showed STEPHEN mass suspicious for malignancy with extension to mediastinum , hilum, tumor invasion to left main pulmonary artery and encasement of left upper lobe bronchus S/P Bronchoscopy 08/16/16 - noted STEPHEN lesion and brushings sent for Cytology: preliminary impression is Squamous Cell CA and we will follow up official report Hematology/Oncology Dr. Badillo has been consulted and patient is deciding on whether to pursue treatment at this time 3. Bilateral pneumonia Chest X Ray 08/09/16 shows new RLL and STEPHEN infiltrates Completed IV abx - Zosyn and Azithromycin ID consulted Dr Cantor Rapid Influenza: neg Sputum c/s: negative Legionella: neg Mycoplasm IgM : neg CT Chest showed NO infiltrate but did show STEPHEN mass suspicious for malignancy as explained above. 4. Hx of Multifocal Atrial Tachycardia and Episode of A Fib ASA 81 mg PO 1x/day Metoprolol 50 mg PO 1x/day She follows with Cardiology Dr. Cole as an outpatient and is currently not on anticoagulation 5. Chronic CHF (congestive heart failure), Diastolic Dysfunction/Pulm HTN This is a questionable diagnosis as the Echocardiogram done on 04/20/16 does not show evidence of Systolic or Diastolic Heart Failure. Metoprolol XL 50 mg PO 1x/day Lasix to 40 mg daily 6. HTN (hypertension) Metoprolol XL 50 mg PO QD 7. Hyperlipidemia Atorvastatin 10 mg PO QHS 8. GERD (gastroesophageal reflux disease) Protonix 40 mg PO 1x/day (on Omeprazole 20 mg PO 1x/day at home) 9. Rheumatoid arthritis with Interstitial Lung Disease Methotrexate 15 mg PO 1x/day on Saturday Folic Acid 2 mg PO 2x/day Plaquenil 400 mg PO 1x/day Gabapentin 100 mg PO 1x/day Gabapentin 300 mg PO QHS 10. Peripheral Vascular Disease/Chronic Venous Insufficiency Vascular Sx was consulted while on medical floor Art Doppler studies LE: decrease flow right more than left Neg DVT on LE Venous US Lac-hydrin lotion fo dry skin LE Continue ASA as above 11. Prophylactic measure Lovenox 40 mg SC 1x/day for DVT Prophylaxis Protonix 40 mg PO 1x/day for GI Prophylaxis MVI PO 1x/day Folic Acid 2 mg PO 2x/day Cholecalciferal 2,000 Units PO 1x/day Buddy White D.O. Objective - Vital Signs/Intake and Output Vital Signs (last 24 hours): Temp Pulse Resp BP Pulse Ox 97.7 F 75 20 112/64 96 08/21/16 17:32 08/21/16 17:32 08/21/16 17:32 08/21/16 17:32 08/21/16 17:32 - Medications Medications: Current Medications Acetazolamide (Diamox Sequels 500 Mg Sr Cap) 500 mg PO DAILY [facility] Last Admin: 08/21/16 08:56 Dose: 500 mg Aspirin (Aspirin Chewable) 81 mg PO DAILY [facility] Last Admin: 08/21/16 08:56 Dose: 81 mg Atorvastatin Calcium (Lipitor) 10 mg PO HS [facility] Last Admin: 08/20/16 21:49 Dose: 10 mg Cholecalciferol (Vitamin D) 2,000 iu PO DAILY [facility] Last Admin: 08/21/16 08:56 Dose: 2,000 iu Fluticasone Propionate (Flonase) 2 spr KEVIN DAILY [facility] Last Admin: 08/21/16 08:54 Dose: 2 spr Folic Acid (Folic Acid) 2 mg PO BID [facility] Last Admin: 08/21/16 16:37 Dose: 2 mg Furosemide (Lasix) 40 mg PO DAILY [facility] Last Admin: 08/21/16 08:54 Dose: 40 mg Gabapentin (Neurontin) 100 mg PO DAILY [facility] Last Admin: 08/21/16 09:50 Dose: 100 mg Gabapentin (Neurontin) 300 mg PO HS [facility] Last Admin: 08/20/16 21:49 Dose: 300 mg Hydroxychloroquine Sulfate (Plaquenil) 400 mg PO DAILY [facility] Last Admin: 08/21/16 08:54 Dose: 400 mg Ipratropium [place] (Atrovent) 0.5 mg IH RQ8 [facility] Last Admin: 08/21/16 15:28 Dose: 0.5 mg Lactic Acid (Lac-Hydrin 12% Lotion (225 G)) 1 applic TOP TID [facility] Last Admin: 08/21/16 16:37 Dose: 1 u Levalbuterol HCl (Xopenex) 1.25 mg INH RQ8 [facility] Last Admin: 08/21/16 15:28 Dose: 1.25 mg Methotrexate (Methotrexate) 15 mg PO SAT [facility] PRN Reason: Protocol Last Admin: 08/18/16 08:33 Dose: 15 mg Methylprednisolone (Medrol) 16 mg PO DAILY [facility] Last Admin: 08/21/16 08:55 Dose: 16 mg Metoprolol Succinate (Toprol Xl) 50 mg PO DAILY [facility] Last Admin: 08/21/16 08:54 Dose: 50 mg Mometasone Furoate (Asmanex Twisthaler 220 Mcg) 1 puff IH DAILY [facility] Last Admin: 08/21/16 08:53 Dose: 1 u Multivitamins/Minerals (Therapeutic-M Tab) 1 tab PO DAILY [facility] Last Admin: 08/21/16 08:54 Dose: 1 tab Pantoprazole Sodium (Protonix Ec Tab) 40 mg PO DAILY [facility] Last Admin: 08/21/16 08:54 Dose: 40 mg - Labs Labs: 08/20/16 06:00 08/20/16 06:00
[2016-08-22] MEDS: Ipratropium 0.02% Inhal Soln (0.5 mg/2.5 ml) UD IH SCH ×3 (00:10→15:28)
[2016-08-22] MEDS: Levalbuterol 1.25 MG/3 ML Inhal Soln UD INH SCH ×3 (00:10→15:28)
[2016-08-22] MEDS: Mometasone 220 mcg/puff-14 puff Inh IH SCH (08:33)
[2016-08-22] MEDS: acetaZOLAMIDE 500 mg SR Cap PO SCH (08:34)
[2016-08-22] MEDS: Multivitamin With Minerals Tab PO SCH (08:35)
[2016-08-22] MEDS: Pantoprazole 40 mg EC Tab PO SCH (08:35)
[2016-08-22] MEDS: Enoxaparin 40 mg Syringe SC SCH (08:35)
--- NOTE | 2016-08-22 08:35 | CP.PCM.CON ---
History of Present Illness - History of Present Illness History of Present Illness: This is a 66 yrs old female who has a past h/o severe copd, CHF, HTN, RA and atrial fibrillation. She was admitted for exacerbation of the COPD, was given therapy with bipap ventilator and aerosol therapy and felt better, She however was found [id number] a mass in the left upper lobe of the lung. A bronchoscopy showed the mass to be obstructing the upper main bronchus. She is very short of breath and has trouble completing a full sentence.,and the tumor is close to the midline so surgical intervention is not possible. Past Patient History - Infectious Disease Hx of Infectious Diseases: None - Tetanus Immunizations Tetanus Immunization: Unknown - Past Medical History & Family History Past Medical History?: Yes Past Family History: Reviewed and not pertinent - Past Social History Smoking Status: Former Smoker Alcohol: None Drugs: Denies Home Situation {Lives}: Other (lives with ) - CARDIAC Hx Cardiac Disorders: Yes Hx Congestive Heart Failure: Yes Hx Hypercholesterolemia: Yes Hx Hypertension: Yes - PULMONARY Hx Chronic Obstructive Pulmonary Disease (COPD): Yes - NEUROLOGICAL Hx Neurological Disorder: No - HEENT Hx HEENT Problems: No - RENAL Hx Chronic Kidney Disease: No - ENDOCRINE/METABOLIC Hx Endocrine Disorders: No - HEMATOLOGICAL/ONCOLOGICAL Hx AIDS: No Hx Human Immunodeficiency Virus (HIV): No - INTEGUMENTARY Other/Comment: Chronic lower extremity changes related to dependant edema - MUSCULOSKELETAL/RHEUMATOLOGICAL Hx Arthritis: Yes Hx Rheumatoid Arthritis: Yes - GASTROINTESTINAL Hx Gastrointestinal Disorders: No Hx Gastroesophageal Reflux: Yes - GENITOURINARY/GYNECOLOGICAL Hx Genitourinary Disorders: No - PSYCHIATRIC Hx Substance Use: No - SURGICAL HISTORY Hx Surgeries: Yes Hx Cholecystectomy: Yes - ANESTHESIA Hx Anesthesia: Yes Hx Anesthesia Reactions: No Hx Malignant Hyperthermia: No Meds Allergies/Adverse Reactions: Allergies Allergy/AdvReac Type Severity Reaction Status Date / Time iodine Allergy RASH Verified 08/17/16 17:57 shellfish derived Allergy RASH Verified 08/17/16 17:57 strawberry Allergy RASH Verified 08/17/16 17:57 - Medications Medications: Current Medications Acetazolamide (Diamox Sequels 500 Mg Sr Cap) 500 mg PO DAILY [facility] Last Admin: 08/21/16 08:56 Dose: 500 mg Aspirin (Aspirin Chewable) 81 mg PO DAILY [facility] Last Admin: 08/21/16 08:56 Dose: 81 mg Atorvastatin Calcium (Lipitor) 10 mg PO HS [facility] Last Admin: 08/21/16 21:38 Dose: 10 mg Cholecalciferol (Vitamin D) 2,000 iu PO DAILY [facility] Last Admin: 08/21/16 08:56 Dose: 2,000 iu Enoxaparin Sodium (Lovenox) 40 mg SC DAILY [facility] PRN Reason: Protocol Fluticasone Propionate (Flonase) 2 spr KEVIN DAILY [facility] Last Admin: 08/21/16 08:54 Dose: 2 spr Folic Acid (Folic Acid) 2 mg PO BID [facility] Last Admin: 08/21/16 16:37 Dose: 2 mg Furosemide (Lasix) 40 mg PO DAILY [facility] Last Admin: 08/21/16 08:54 Dose: 40 mg Gabapentin (Neurontin) 100 mg PO DAILY [facility] Last Admin: 08/21/16 09:50 Dose: 100 mg Gabapentin (Neurontin) 300 mg PO HS [facility] Last Admin: 08/21/16 21:38 Dose: 300 mg Hydroxychloroquine Sulfate (Plaquenil) 400 mg PO DAILY [facility] Last Admin: 08/21/16 08:54 Dose: 400 mg Ipratropium [place] (Atrovent) 0.5 mg IH RQ8 [facility] Last Admin: 08/22/16 07:26 Dose: 0.5 mg Lactic Acid (Lac-Hydrin 12% Lotion (225 G)) 1 applic TOP TID [facility] Last Admin: 08/21/16 16:37 Dose: 1 u Levalbuterol HCl (Xopenex) 1.25 mg INH RQ8 [facility] Last Admin: 08/22/16 07:26 Dose: 1.25 mg Methotrexate (Methotrexate) 15 mg PO [facility] PRN Reason: Protocol Last Admin: 08/18/16 08:33 Dose: 15 mg Methylprednisolone (Medrol) 16 mg PO DAILY [facility] Last Admin: 08/21/16 08:55 Dose: 16 mg Metoprolol Succinate (Toprol Xl) 50 mg PO DAILY [facility] Last Admin: 08/21/16 08:54 Dose: 50 mg Mometasone Furoate (Asmanex Twisthaler 220 Mcg) 1 puff IH DAILY [facility] Last Admin: 08/21/16 08:53 Dose: 1 u Multivitamins/Minerals (Therapeutic-M Tab) 1 tab PO DAILY [facility] Last Admin: 08/21/16 08:54 Dose: 1 tab Pantoprazole Sodium (Protonix Ec Tab) 40 mg PO DAILY [facility] Last Admin: 08/21/16 08:54 Dose: 40 mg Physical Exam - Additional Findings Additional findings: Physical exam; Alert, well oriented in no acute distress chest; Air entry poor bilaterally, scattered rales and rhonchi bilaterally Heart; RSR 86/min, gr 2/6 systolic murmur Abd; Soft, no mass, no h/s megaly Results - Vital Signs Recent Vital Signs: Last Vital Signs Temp 97.7 F 08/21/16 21:57 Pulse 68 08/22/16 00:39 Resp 20 08/21/16 21:57 BP 117/66 08/21/16 21:57 Pulse Ox 96 08/21/16 21:57 - Labs Result Diagrams: 08/20/16 06:00 08/20/16 06:00 Assessment & Plan - Assessment and Plan (Free Text) Assessment: Impression; Squamous cell lung cancer Afib,COPD,HTN,Rheumaatoid arthritis Plan: Plan; Will order a ct scan of the chest,abdomen and brain to make sure that the tumor is limited to the left upper lobe. If she is get chemotherapy, I need to speak to her stitcher hand to see if we can D/C the methotrexate during the chemo for the lung. - Date & Time Date: 08/21/16 Time: 02:30
[2016-08-22] MEDS: Metoprolol Succinate 50 mg XL Tab PO SCH (08:36)
--- NOTE | 2016-08-22 09:16 | CP.PCM.PN ---
Subjective - Date & Time of Evaluation Date of Evaluation: 08/22/16 Time of Evaluation: 09:13 - Subjective Subjective: Seen by Heme-Onc. Note reviewed. Discussed with Dr Badillo yesterday, will talk with her again today. Patient is feeling well, tired yesterday after PT/OT, but was able to participate. Weight continued to decrease on the current regimen; down to 193 today (-5). Will need arrangements made for BiPAP ventilation prior to discharge. Objective - Vital Signs/Intake and Output Vital Signs (last 24 hours): Temp Pulse Resp BP Pulse Ox 97.9 F 84 18 111/59 L 97 08/22/16 08:40 08/22/16 08:40 08/22/16 08:40 08/22/16 08:40 08/22/16 08:40 - Medications Medications: Current Medications Acetazolamide (Diamox Sequels 500 Mg Sr Cap) 500 mg PO DAILY [facility] Last Admin: 08/22/16 08:34 Dose: 500 mg Aspirin (Aspirin Chewable) 81 mg PO DAILY [facility] Last Admin: 08/22/16 08:34 Dose: 81 mg Atorvastatin Calcium (Lipitor) 10 mg PO HS [facility] Last Admin: 08/21/16 21:38 Dose: 10 mg Cholecalciferol (Vitamin D) 2,000 iu PO DAILY [facility] Last Admin: 08/22/16 08:36 Dose: 2,000 iu Enoxaparin Sodium (Lovenox) 40 mg SC DAILY [facility] PRN Reason: Protocol Last Admin: 08/22/16 08:35 Dose: 40 mg Fluticasone Propionate (Flonase) 2 spr KEVIN DAILY [facility] Last Admin: 08/22/16 08:34 Dose: 2 spr Folic Acid (Folic Acid) 2 mg PO BID [facility] Last Admin: 08/22/16 08:34 Dose: 2 mg Furosemide (Lasix) 40 mg PO DAILY [facility] Last Admin: 08/22/16 08:34 Dose: 40 mg Gabapentin (Neurontin) 100 mg PO DAILY [facility] Last Admin: 08/22/16 08:35 Dose: 100 mg Gabapentin (Neurontin) 300 mg PO HS [facility] Last Admin: 08/21/16 21:38 Dose: 300 mg Hydroxychloroquine Sulfate (Plaquenil) 400 mg PO DAILY [facility] Last Admin: 08/22/16 08:35 Dose: 400 mg Ipratropium [place] (Atrovent) 0.5 mg IH RQ8 [facility] Last Admin: 08/22/16 07:26 Dose: 0.5 mg Lactic Acid (Lac-Hydrin 12% Lotion (225 G)) 1 applic TOP TID [facility] Last Admin: 08/22/16 08:31 Dose: 1 u Levalbuterol HCl (Xopenex) 1.25 mg INH RQ8 [facility] Last Admin: 08/22/16 07:26 Dose: 1.25 mg Methotrexate (Methotrexate) 15 mg PO SAT [facility] PRN Reason: Protocol Last Admin: 08/18/16 08:33 Dose: 15 mg Methylprednisolone (Medrol) 16 mg PO DAILY [facility] Last Admin: 08/22/16 08:35 Dose: 16 mg Metoprolol Succinate (Toprol Xl) 50 mg PO DAILY [facility] Last Admin: 08/22/16 08:36 Dose: 50 mg Mometasone Furoate (Asmanex Twisthaler 220 Mcg) 1 puff IH DAILY [facility] Last Admin: 08/22/16 08:33 Dose: 1 u Multivitamins/Minerals (Therapeutic-M Tab) 1 tab PO DAILY [facility] Last Admin: 08/22/16 08:35 Dose: 1 tab Pantoprazole Sodium (Protonix Ec Tab) 40 mg PO DAILY [facility] Last Admin: 08/22/16 08:35 Dose: 40 mg - Labs Labs: 08/20/16 06:00 08/20/16 06:00 Assessment and Plan (1) Lung mass Status: Chronic (2) Hypercapnic respiratory failure, chronic Status: Chronic (3) COPD (chronic obstructive pulmonary disease) Status: Chronic
[2016-08-22] MEDS ORDERED: Iohexol 240 (50 ml) PO ONE (11:00)
--- NOTE | 2016-08-22 14:14 | CP.PCM.PN ---
Subjective - Date & Time of Evaluation Date of Evaluation: 08/22/16 Time of Evaluation: 14:13 - Subjective Subjective: Pt 's condition is unchanged. Spoke with Dr Yusuf. If the ct scan shows the tumor limited to the Objective - Vital Signs/Intake and Output Vital Signs (last 24 hours): Temp Pulse Resp BP Pulse Ox 97.9 F 84 18 111/59 L 97 08/22/16 08:40 08/22/16 08:40 08/22/16 08:40 08/22/16 08:40 08/22/16 08:40 - Medications Medications: Current Medications Acetazolamide (Diamox Sequels 500 Mg Sr Cap) 500 mg PO DAILY [facility] Last Admin: 08/22/16 08:34 Dose: 500 mg Aspirin (Aspirin Chewable) 81 mg PO DAILY [facility] Last Admin: 08/22/16 08:34 Dose: 81 mg Atorvastatin Calcium (Lipitor) 10 mg PO HS [facility] Last Admin: 08/21/16 21:38 Dose: 10 mg Cholecalciferol (Vitamin D) 2,000 iu PO DAILY [facility] Last Admin: 08/22/16 08:36 Dose: 2,000 iu Enoxaparin Sodium (Lovenox) 40 mg SC DAILY [facility] PRN Reason: Protocol Last Admin: 08/22/16 08:35 Dose: 40 mg Fluticasone Propionate (Flonase) 2 spr KEVIN DAILY [facility] Last Admin: 08/22/16 08:34 Dose: 2 spr Folic Acid (Folic Acid) 2 mg PO BID [facility] Last Admin: 08/22/16 08:34 Dose: 2 mg Furosemide (Lasix) 40 mg PO DAILY [facility] Last Admin: 08/22/16 08:34 Dose: 40 mg Gabapentin (Neurontin) 100 mg PO DAILY [facility] Last Admin: 08/22/16 08:35 Dose: 100 mg Gabapentin (Neurontin) 300 mg PO HS [facility] Last Admin: 08/21/16 21:38 Dose: 300 mg Hydroxychloroquine Sulfate (Plaquenil) 400 mg PO DAILY [facility] Last Admin: 08/22/16 08:35 Dose: 400 mg Ipratropium [place] (Atrovent) 0.5 mg IH RQ8 [facility] Last Admin: 08/22/16 07:26 Dose: 0.5 mg Lactic Acid (Lac-Hydrin 12% Lotion (225 G)) 1 applic TOP TID [facility] Last Admin: 08/22/16 12:25 Dose: 1 u Levalbuterol HCl (Xopenex) 1.25 mg INH RQ8 [facility] Last Admin: 08/22/16 07:26 Dose: 1.25 mg Methotrexate (Methotrexate) 15 mg PO SAT [facility] PRN Reason: Protocol Last Admin: 08/18/16 08:33 Dose: 15 mg Methylprednisolone (Medrol) 16 mg PO DAILY [facility] Last Admin: 08/22/16 08:35 Dose: 16 mg Metoprolol Succinate (Toprol Xl) 50 mg PO DAILY [facility] Last Admin: 08/22/16 08:36 Dose: 50 mg Mometasone Furoate (Asmanex Twisthaler 220 Mcg) 1 puff IH DAILY [facility] Last Admin: 08/22/16 08:33 Dose: 1 u Multivitamins/Minerals (Therapeutic-M Tab) 1 tab PO DAILY [facility] Last Admin: 08/22/16 08:35 Dose: 1 tab Pantoprazole Sodium (Protonix Ec Tab) 40 mg PO DAILY [facility] Last Admin: 08/22/16 08:35 Dose: 40 mg - Labs Labs: 08/20/16 06:00 08/20/16 06:00
--- NOTE | 2016-08-22 14:19 | PCM.ANESB4 ---
Infraclavicular Block - Procedure Infraclavicular Block: The procedure was explained to the patient that it is for the post-operative pain management. Consent was obtained after a thorough discussion with the patient regarding the benefits and possible complications of local anesthetic block of the brachial plexus at the infraclavicular area. The patient was brought to the operating room and standard monitors were applied. Time-out was held with the circulating nurse to confirm the correct surgery and the appropriate block. After applying oxygen by nasal cannula and administering IV Sedation, patient's head was gently rotated away from the operative shoulder and the area medial to the coracoid process and inferior to the clavicle was carefully palpated. The ultrasound transducer was then applied to the skin in the transverse plane and the brachial plexus was visualized surrounding the axillary artery and deep to the pectoralis major and minor muscles. After thorough identification, this area was prepped with Betadine solution three times and 1 % Lidocaine was injected subcutaneously for topical anesthesia. At this point, a #21 gauge Stimuplex 4-inch needle was inserted cephalad to the ultrasound transducer and inferior to the clavicle in-plane towards the posterior aspect of the axillary artery. Needle advancement was performed carefully under ultrasound visualization. Nerve stimulator was used and twitch of the affected extremity including fingers, hand, wrist and elbow was obtained at current of MA. After repeated negative aspiration, cc of % ___ was injected and this was followed with cc of % . Under ultrasound guidance the local anesthetics were observed surrounding the cords of the brachial plexus. The needle was removed intact and sterile dressing was applied. The patient had stable vital signs, was conscious and in no apparent distress. The patient tolerated the infraclavicular block of the brachial plexus well with stable vital signs was prepared for subsequent surgery.
[2016-08-23] MEDS: Levalbuterol 1.25 MG/3 ML Inhal Soln UD INH SCH ×3 (00:07→15:18)
[2016-08-23] MEDS: Ipratropium 0.02% Inhal Soln (0.5 mg/2.5 ml) UD IH SCH ×3 (00:07→15:18)
--- NOTE | 2016-08-23 09:37 | CP.PCM.PN ---
Subjective - Date & Time of Evaluation Date of Evaluation: 08/23/16 Time of Evaluation: 09:35 - Subjective Subjective: Pt's condition is the same. She had a CT scan of the brain,chest and abdomen to r/o metastatic disease. Will then make a decision re the RT vs chemotherapy Objective - Vital Signs/Intake and Output Vital Signs (last 24 hours): Temp Pulse Resp BP Pulse Ox 97.9 F 63 20 125/73 97 08/23/16 08:14 08/23/16 08:14 08/23/16 08:14 08/23/16 08:14 08/23/16 08:14 - Medications Medications: Current Medications Acetazolamide (Diamox Sequels 500 Mg Sr Cap) 500 mg PO DAILY [facility] Last Admin: 08/22/16 08:34 Dose: 500 mg Aspirin (Aspirin Chewable) 81 mg PO DAILY [facility] Last Admin: 08/22/16 08:34 Dose: 81 mg Atorvastatin Calcium (Lipitor) 10 mg PO HS [facility] Last Admin: 08/22/16 21:28 Dose: 10 mg Cholecalciferol (Vitamin D) 2,000 iu PO DAILY [facility] Last Admin: 08/22/16 08:36 Dose: 2,000 iu Enoxaparin Sodium (Lovenox) 40 mg SC DAILY [facility] PRN Reason: Protocol Last Admin: 08/22/16 08:35 Dose: 40 mg Fluticasone Propionate (Flonase) 2 spr KEVIN DAILY [facility] Last Admin: 08/22/16 08:34 Dose: 2 spr Folic Acid (Folic Acid) 2 mg PO BID [facility] Last Admin: 08/22/16 17:04 Dose: 2 mg Furosemide (Lasix) 40 mg PO DAILY [facility] Last Admin: 08/22/16 08:34 Dose: 40 mg Gabapentin (Neurontin) 100 mg PO DAILY [facility] Last Admin: 08/22/16 08:35 Dose: 100 mg Gabapentin (Neurontin) 300 mg PO HS [facility] Last Admin: 08/22/16 21:29 Dose: 300 mg Hydroxychloroquine Sulfate (Plaquenil) 400 mg PO DAILY [facility] Last Admin: 08/22/16 08:35 Dose: 400 mg Ipratropium [place] (Atrovent) 0.5 mg IH RQ8 [facility] Last Admin: 08/23/16 07:12 Dose: 0.5 mg Lactic Acid (Lac-Hydrin 12% Lotion (225 G)) 1 applic TOP TID [facility] Last Admin: 08/22/16 17:04 Dose: 1 u Levalbuterol HCl (Xopenex) 1.25 mg INH RQ8 [facility] Last Admin: 08/23/16 07:12 Dose: 1.25 mg Methotrexate (Methotrexate) 15 mg PO SAT [facility] PRN Reason: Protocol Last Admin: 08/18/16 08:33 Dose: 15 mg Methylprednisolone (Medrol) 16 mg PO DAILY [facility] Last Admin: 08/22/16 08:35 Dose: 16 mg Metoprolol Succinate (Toprol Xl) 50 mg PO DAILY [facility] Last Admin: 08/22/16 08:36 Dose: 50 mg Mometasone Furoate (Asmanex Twisthaler 220 Mcg) 1 puff IH DAILY [facility] Last Admin: 08/22/16 08:33 Dose: 1 u Multivitamins/Minerals (Therapeutic-M Tab) 1 tab PO DAILY [facility] Last Admin: 08/22/16 08:35 Dose: 1 tab Pantoprazole Sodium (Protonix Ec Tab) 40 mg PO DAILY [facility] Last Admin: 08/22/16 08:35 Dose: 40 mg - Labs Labs: 08/20/16 06:00 08/20/16 06:00
[2016-08-23] MEDS: Mometasone 220 mcg/puff-14 puff Inh IH SCH (09:38)
[2016-08-23] MEDS: Enoxaparin 40 mg Syringe SC SCH (09:39)
[2016-08-23] MEDS: Metoprolol Succinate 50 mg XL Tab PO SCH (09:39)
[2016-08-23] MEDS: acetaZOLAMIDE 500 mg SR Cap PO SCH (09:40)
[2016-08-23] MEDS: Multivitamin With Minerals Tab PO SCH (09:40)
[2016-08-23] MEDS: Pantoprazole 40 mg EC Tab PO SCH (09:42)
--- NOTE | 2016-08-23 15:14 | CP.PCM.PN ---
Subjective - Date & Time of Evaluation Date of Evaluation: 08/23/16 Time of Evaluation: 14:50 - Subjective Subjective: Hospitalist Progress Note (Patient was seen and examined with present at 2:50 PM on 08/22/16 [id number]) 66 year old female (PMHx: COPD, CHF, HTN, HLD, RA, Chronic LE Edema, MAT) presented to the [facility] ER on 08/09/16 via EMS with her with a chief complaint of SOB. She was found to be in respiratory failure secondary to COPD Exacerbation and Bilateral Pneumonia. She was then transferred to ICU , placed on Bipap and high flow O2 via NC ,treated with IV Solumedrol tapering dose, Xopenex and IV antibiotics. CT Chest performed showed Left Upper Lobe mass suspicious for malignancy. She therefore underwent a Bronchoscopy on 08/16/16 and this showed extrinsic compression of STEPHEN and brushings were sent to Pathology for review and preliminary report shows Squamous Cell CA. She was stabalized and then transferred to [facility] TCU for further management and PT/OT. Please see individual Assessment and Plans below for details ROS: States that her breathing is better: she will have to increase O2 to 3L during PT and while resting it is at 2L Complains of dryness in her throat secondary to continued use of O2 via NC but NO dysphagia/odynophagia Cough that is mostly dry comes and goes, NO hemoptysis Bilateral Heal pain secondary to neuropathy and requesting Prevalon boots be placed on at night time when sleeping as this is what she is used to at home NO other complaints at this time upon FULL ROS Physical Exam - Constitutional Appears: No Acute Distress Additional comments: Patient is speaking in full sentences and appears to be comfortable on Oxygen 3L via NC NO accessory muscles of respiration being used and no nasal flaring - Head Exam Additional comments: 1 x .5 cm pink papule in the junction of the occipital and bilateral parietal scalps - Eye Exam Eye Exam: EOMI, Normal appearance, PERRL Pupil Exam: NORMAL ACCOMODATION, PERRL - ENT Exam Additional comments: Ruptured Central Nasal Septum (she has a history of this) Mucous membranes are dry NO pharyngeal erythema/exudate NO thyromegaly NO cervical/supraclavicular/submandibular lymphadenopathy - Neck Exam Additional comments: Please see ENT Exam - Respiratory Exam Additional comments: Bilateral bibasilar inspiratory crackles NO wheezing heard - Cardiovascular Exam Cardiovascular Exam: Irregular Rhythm Additional comments: Irregularly irregular NO M/R/G - GI/Abdominal Exam Additional comments: BSx4, Soft, NT, Central Obesity therefore Liver and Spleen could not be palpated , NO guarding/rebound tenderness - Extremities Exam Additional comments: BILATERAL PULSES ARE STRONG AND EQUAL CAPILLARY REFILL IS 2 SECONDS BILATERAL LOWER LEGS SHOW 1+ EDEMA UPTO THE BILATERAL TIBIAL TUBEROSITIES. BILATERAL LOWER LEGS ANTERIOR SURFACE HAS HYPERKERATOSIS AND AREAS OF PEELING OF THE SKIN WITHOUT EVIDENCE OF CELLULITIS BILATERAL FEET TOES SHOW CYANOSIS AND ARE SLIGHTLY COOL TO THE TOUCH MULTIPLE AREAS OF BRUISING ON BILATERAL ARMS/ABDOMEN - Neurological Exam Neurological exam: Alert, CN II-XII Intact, Oriented x3 - Psychiatric Exam Psychiatric exam: Normal Affect, Normal Mood 1. Hx Acute on Chronic Respiratory Failure with Hypoxia and Hypercapnea likely sec to COPD Exacerbation and PNA Patient is currently doing well on O2 via NC at 3 liters Pulmonary following closely, Dr. Yusuf Methylprednisilone taper and currently at 12 mg PO 1x/day She completed IV antibiotic course - Zosyn and Azythromycin Continue Xopenex neb treatment and Asmanex s/p Bronchoscopy 08/16 - noted STEPHEN lesion Continue Diamox daily Will need Home Bipap / I/E, 35% FiO2, RR 16 at bedtime: order placed for Human Resources Designate to help arrange this 2. 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 Badillo has been consulted: Awaiting results of CT Abdomen /Pelvis/Brain to determine best course of treatment 3. Bilateral pneumonia Chest X Ray 08/09/16 shows new RLL and STEPHEN infiltrates Completed IV abx - Zosyn and Azithromycin ID consulted Dr Cantor Rapid Influenza: neg Sputum c/s: negative Legionella: neg Mycoplasm IgM : neg CT Chest #1 showed NO infiltrate but did show STEPHEN mass suspicious for malignancy as explained above. 4. Hx of Multifocal Atrial Tachycardia and Episode of A Fib ASA 81 mg PO 1x/day Metoprolol 50 mg PO 1x/day She follows with Cardiology Dr. Cole as an outpatient and is currently not on anticoagulation 5. Chronic CHF (congestive heart failure), Diastolic Dysfunction/Pulm HTN This is a questionable diagnosis as the Echocardiogram done on 04/20/16 does not show evidence of Systolic or Diastolic Heart Failure. Metoprolol XL 50 mg PO 1x/day Lasix to 40 mg daily 6. HTN (hypertension) Metoprolol XL 50 mg PO QD 7. Hyperlipidemia Atorvastatin 10 mg PO QHS 8. GERD (gastroesophageal reflux disease) Protonix 40 mg PO 1x/day (on Omeprazole 20 mg PO 1x/day at home) 9. 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 Peripheral Vascular Disease/Chronic Venous Insufficiency Vascular Sx was consulted while on medical floor Art Doppler studies LE: decrease flow right more than left Neg DVT on LE Venous US Lac-hydrin lotion fo dry skin LE Continue ASA as above 11. Prophylactic measure Lovenox 40 mg SC 1x/day for DVT Prophylaxis Protonix 40 mg PO 1x/day for GI Prophylaxis MVI PO 1x/day Folic Acid 2 mg PO 2x/day Cholecalciferal 2,000 Units PO 1x/day Buddy White D.O. Objective - Vital Signs/Intake and Output Vital Signs (last 24 hours): Temp Pulse Resp BP Pulse Ox 97.9 F 63 20 125/73 97 08/23/16 08:14 08/23/16 09:39 08/23/16 08:14 08/23/16 09:39 08/23/16 08:14 - Medications Medications: Current Medications Acetazolamide (Diamox Sequels 500 Mg Sr Cap) 500 mg PO DAILY [facility] Last Admin: 08/23/16 09:40 Dose: 500 mg Aspirin (Aspirin Chewable) 81 mg PO DAILY [facility] Last Admin: 08/23/16 09:40 Dose: 81 mg Atorvastatin Calcium (Lipitor) 10 mg PO HS [facility] Last Admin: 08/22/16 21:28 Dose: 10 mg Cholecalciferol (Vitamin D) 2,000 iu PO DAILY [facility] Last Admin: 08/23/16 09:42 Dose: 2,000 iu Enoxaparin Sodium (Lovenox) 40 mg SC DAILY [facility] PRN Reason: Protocol Last Admin: 08/23/16 09:39 Dose: 40 mg Fluticasone Propionate (Flonase) 2 spr KEVIN DAILY [facility] Last Admin: 08/23/16 09:41 Dose: 2 spr Folic Acid (Folic Acid) 2 mg PO BID [facility] Last Admin: 08/23/16 12:40 Dose: 2 mg Furosemide (Lasix) 40 mg PO DAILY [facility] Last Admin: 08/23/16 09:38 Dose: 40 mg Gabapentin (Neurontin) 100 mg PO DAILY [facility] Last Admin: 08/23/16 09:42 Dose: 100 mg Gabapentin (Neurontin) 300 mg PO HS [facility] Last Admin: 08/22/16 21:29 Dose: 300 mg Hydroxychloroquine Sulfate (Plaquenil) 400 mg PO DAILY [facility] Last Admin: 08/23/16 09:41 Dose: 400 mg Ipratropium [place] (Atrovent) 0.5 mg IH RQ8 [facility] Last Admin: 08/23/16 07:12 Dose: 0.5 mg Lactic Acid (Lac-Hydrin 12% Lotion (225 G)) 1 applic TOP TID [facility] Last Admin: 08/23/16 09:41 Dose: 1 u Levalbuterol HCl (Xopenex) 1.25 mg INH RQ8 [facility] Last Admin: 08/23/16 07:12 Dose: 1.25 mg Methotrexate (Methotrexate) 15 mg PO SAT [facility] PRN Reason: Protocol Last Admin: 08/18/16 08:33 Dose: 15 mg Methylprednisolone (Medrol) 12 mg PO DAILY [facility] Metoprolol Succinate (Toprol Xl) 50 mg PO DAILY [facility] Last Admin: 08/23/16 09:39 Dose: 50 mg Mometasone Furoate (Asmanex Twisthaler 220 Mcg) 1 puff IH DAILY [facility] Last Admin: 08/23/16 09:38 Dose: 1 u Multivitamins/Minerals (Therapeutic-M Tab) 1 tab PO DAILY [facility] Last Admin: 08/23/16 09:40 Dose: 1 tab Pantoprazole Sodium (Protonix Ec Tab) 40 mg PO DAILY [facility] Last Admin: 08/23/16 09:42 Dose: 40 mg - Labs Labs: 08/20/16 06:00 08/20/16 06:00
[2016-08-24] MEDS: Ipratropium 0.02% Inhal Soln (0.5 mg/2.5 ml) UD IH SCH ×4 (00:13→23:20)
[2016-08-24] MEDS: Levalbuterol 1.25 MG/3 ML Inhal Soln UD INH SCH ×4 (00:14→23:20)
[2016-08-24 07:16] LABS: BASO % 0.2 % (0.0-2.0); EOS # 0.1 K/uL (0.0-0.7); EOS % 0.6 % (0.0-4.0); HEMATOCRIT 36.6 % (34.0-47.0); LYMPH # 0.6 K/uL (1.0-4.3); LYMPH % 6.9 % (20.0-40.0); MEAN CELL VOLUME 104.9 fl (81.0-99.0); MEAN CORPUSCULAR HEMOGLOBIN 33.2 pg (27.0-31.0); MEAN CORPUSCULAR HGB CONC 31.6 g/dL (33.0-37.0); MEAN PLATELET VOLUME 9.4 fl (7.2-11.7); MONO # 0.8 K/uL (0.0-0.8); MONO % 8.3 % (0.0-10.0); NEUT # 7.8 K/uL (1.8-7.0); NRBC % 0.1 % (0.0-0.0); PLATELET COUNT 147 K/uL (130-400); RED CELL DISTRIBUTION WIDTH 17.5 % (11.5-14.5); WHITE BLOOD COUNT 9.3 K/uL (4.8-10.8)
[2016-08-24 07:48] LABS: ALKALINE PHOSPHATASE 64 U/L (38-126); ALT/SGPT 50 U/L (9-52); AST/SGOT 29 U/L (14-36); BILIRUBIN,TOTAL 0.5 mg/dl (0.2-1.3); BLOOD UREA NITROGEN 13 mg/dl (7-17); CALCIUM 9.2 mg/dL (8.4-10.2); CHLORIDE 94 mmol/L (98-107); GFR AFRICAN-AMERICAN > 60; GLUCOSE,RANDOM 96 mg/dL (65-105); POTASSIUM 3.7 MMOL/L (3.6-5.0); SODIUM 140 mmol/l (132-148); TOTAL PROTEIN 6.2 G/DL (6.3-8.2)
[2016-08-24 08:17] LABS: ALB/GLOB RATIO 1.3 (1.0-2.1)
[2016-08-24 08:19] LABS: CARBON DIOXIDE 40 mmol/L (22-30)
[2016-08-24 09:56] LABS: NEUTROPHIL 84 % (42-75); TOTAL CELLS COUNTED 100
[2016-08-24] MEDS: Mometasone 220 mcg/puff-14 puff Inh IH SCH (09:58)
[2016-08-24] MEDS: Enoxaparin 40 mg Syringe SC SCH (09:58)
[2016-08-24] MEDS: Pantoprazole 40 mg EC Tab PO SCH (10:00)
[2016-08-24] MEDS: Multivitamin With Minerals Tab PO SCH (10:00)
[2016-08-24] MEDS: Metoprolol Succinate 50 mg XL Tab PO SCH (10:01)
[2016-08-24] MEDS: acetaZOLAMIDE 500 mg SR Cap PO SCH (10:02)
--- NOTE | 2016-08-24 10:11 | CP.PCM.PN ---
Subjective - Date & Time of Evaluation Date of Evaluation: 08/24/16 Time of Evaluation: 10:07 - Subjective Subjective: Pt's CT scan results were available today. The brain and abdomen did not show any evidence of metastasis, but the right lung has 2 small 2-3 mm sized nodules I feel that if the pt can have gamma knife resection of the tumor , she can be followed up with chemotherapy. Dr anne to talk to the pulmonary oncologist in [place].. Objective - Vital Signs/Intake and Output Vital Signs (last 24 hours): Temp Pulse Resp BP Pulse Ox 97.3 F L 64 20 107/61 99 08/24/16 09:23 08/24/16 10:01 08/24/16 09:23 08/24/16 10:01 08/24/16 09:23 - Medications Medications: Current Medications Acetazolamide (Diamox Sequels 500 Mg Sr Cap) 500 mg PO DAILY [facility] Last Admin: 08/24/16 10:02 Dose: 500 mg Aspirin (Aspirin Chewable) 81 mg PO DAILY [facility] Last Admin: 08/24/16 10:01 Dose: 81 mg Atorvastatin Calcium (Lipitor) 10 mg PO HS [facility] Last Admin: 08/23/16 21:45 Dose: 10 mg Cholecalciferol (Vitamin D) 2,000 iu PO DAILY [facility] Last Admin: 08/24/16 10:01 Dose: 2,000 iu Enoxaparin Sodium (Lovenox) 40 mg SC DAILY [facility] PRN Reason: Protocol Last Admin: 08/24/16 09:58 Dose: 40 mg Fluticasone Propionate (Flonase) 2 spr KEVIN DAILY [facility] Last Admin: 08/24/16 09:58 Dose: 2 spr Folic Acid (Folic Acid) 2 mg PO BID [facility] Last Admin: 08/24/16 10:00 Dose: 2 mg Furosemide (Lasix) 40 mg PO DAILY [facility] Last Admin: 08/23/16 09:38 Dose: 40 mg Gabapentin (Neurontin) 100 mg PO DAILY [facility] Last Admin: 08/23/16 09:42 Dose: 100 mg Gabapentin (Neurontin) 300 mg PO HS [facility] Last Admin: 08/23/16 21:45 Dose: 300 mg Hydroxychloroquine Sulfate (Plaquenil) 400 mg PO DAILY [facility] Last Admin: 08/24/16 10:00 Dose: 400 mg Ipratropium [place] (Atrovent) 0.5 mg IH RQ8 [facility] Last Admin: 08/24/16 07:34 Dose: 0.5 mg Lactic Acid (Lac-Hydrin 12% Lotion (225 G)) 1 applic TOP TID [facility] Last Admin: 08/23/16 17:14 Dose: 1 u Levalbuterol HCl (Xopenex) 1.25 mg INH RQ8 [facility] Last Admin: 08/24/16 07:34 Dose: 1.25 mg Methotrexate (Methotrexate) 15 mg PO SAT [facility] PRN Reason: Protocol Last Admin: 08/18/16 08:33 Dose: 15 mg Methylprednisolone (Medrol) 12 mg PO DAILY [facility] Last Admin: 08/24/16 09:59 Dose: 12 mg Metoprolol Succinate (Toprol Xl) 50 mg PO DAILY [facility] Last Admin: 08/24/16 10:01 Dose: 50 mg Mometasone Furoate (Asmanex Twisthaler 220 Mcg) 1 puff IH DAILY [facility] Last Admin: 08/24/16 09:58 Dose: 1 u Multivitamins/Minerals (Therapeutic-M Tab) 1 tab PO DAILY [facility] Last Admin: 08/24/16 10:00 Dose: 1 tab Pantoprazole Sodium (Protonix Ec Tab) 40 mg PO DAILY [facility] Last Admin: 08/24/16 10:00 Dose: 40 mg - Labs Labs: 08/24/16 06:51 08/24/16 06:51
--- NOTE | 2016-08-24 10:58 | CP.PCM.PN ---
Subjective - Date & Time of Evaluation Date of Evaluation: 08/24/16 Time of Evaluation: 10:56 - Subjective Subjective: Doing well on current regimen. Uses BiPAP ventilation overnight and standard nasal canula during the day. Able to participate in PT with nasal O2 at 3LPM. Planning for discharge to home in the near future with request for DME. Already has oxygen concentrator at home with standard nasal canula. Will need BiPAP or Trilogy ventilator for home with O2 at 2LPM added. Will also arrange for follow up in [facility] with regards to her lung cancer diagnosis. Rx for DME left with nursing. Objective - Vital Signs/Intake and Output Vital Signs (last 24 hours): Temp Pulse Resp BP Pulse Ox 97.3 F L 64 20 112/64 99 08/24/16 09:23 08/24/16 10:01 08/24/16 09:23 08/24/16 10:17 08/24/16 09:23 - Medications Medications: Current Medications Acetazolamide (Diamox Sequels 500 Mg Sr Cap) 500 mg PO DAILY [facility] Last Admin: 08/24/16 10:02 Dose: 500 mg Aspirin (Aspirin Chewable) 81 mg PO DAILY [facility] Last Admin: 08/24/16 10:01 Dose: 81 mg Atorvastatin Calcium (Lipitor) 10 mg PO HS [facility] Last Admin: 08/23/16 21:45 Dose: 10 mg Cholecalciferol (Vitamin D) 2,000 iu PO DAILY [facility] Last Admin: 08/24/16 10:01 Dose: 2,000 iu Enoxaparin Sodium (Lovenox) 40 mg SC DAILY [facility] PRN Reason: Protocol Last Admin: 08/24/16 09:58 Dose: 40 mg Fluticasone Propionate (Flonase) 2 spr KEVIN DAILY [facility] Last Admin: 08/24/16 09:58 Dose: 2 spr Folic Acid (Folic Acid) 2 mg PO BID [facility] Last Admin: 08/24/16 10:00 Dose: 2 mg Furosemide (Lasix) 40 mg PO DAILY [facility] Last Admin: 08/24/16 10:17 Dose: 40 mg Gabapentin (Neurontin) 100 mg PO DAILY [facility] Last Admin: 08/24/16 10:02 Dose: 100 mg Gabapentin (Neurontin) 300 mg PO HS [facility] Last Admin: 08/23/16 21:45 Dose: 300 mg Hydroxychloroquine Sulfate (Plaquenil) 400 mg PO DAILY [facility] Last Admin: 08/24/16 10:00 Dose: 400 mg Ipratropium [place] (Atrovent) 0.5 mg IH RQ8 [facility] Last Admin: 08/24/16 07:34 Dose: 0.5 mg Lactic Acid (Lac-Hydrin 12% Lotion (225 G)) 1 applic TOP TID [facility] Last Admin: 08/24/16 10:23 Dose: 1 u Levalbuterol HCl (Xopenex) 1.25 mg INH RQ8 [facility] Last Admin: 08/24/16 07:34 Dose: 1.25 mg Methotrexate (Methotrexate) 15 mg PO SAT [facility] PRN Reason: Protocol Last Admin: 08/18/16 08:33 Dose: 15 mg Methylprednisolone (Medrol) 12 mg PO DAILY [facility] Last Admin: 08/24/16 09:59 Dose: 12 mg Metoprolol Succinate (Toprol Xl) 50 mg PO DAILY [facility] Last Admin: 08/24/16 10:01 Dose: 50 mg Mometasone Furoate (Asmanex Twisthaler 220 Mcg) 1 puff IH DAILY [facility] Last Admin: 08/24/16 09:58 Dose: 1 u Multivitamins/Minerals (Therapeutic-M Tab) 1 tab PO DAILY [facility] Last Admin: 08/24/16 10:00 Dose: 1 tab Pantoprazole Sodium (Protonix Ec Tab) 40 mg PO DAILY [facility] Last Admin: 08/24/16 10:00 Dose: 40 mg - Labs Labs: 08/24/16 06:51 08/24/16 06:51 Assessment and Plan (1) Lung mass Status: Chronic (2) Hypercapnic respiratory failure, chronic Status: Chronic (3) COPD (chronic obstructive pulmonary disease) Status: Chronic
[2016-08-25] MEDS: Levalbuterol 1.25 MG/3 ML Inhal Soln UD INH SCH ×2 (07:49→15:17)
[2016-08-25] MEDS: Ipratropium 0.02% Inhal Soln (0.5 mg/2.5 ml) UD IH SCH ×2 (07:49→15:17)
[2016-08-25] MEDS: Mometasone 220 mcg/puff-14 puff Inh IH SCH (08:43)
[2016-08-25] MEDS: Enoxaparin 40 mg Syringe SC SCH (08:44)
[2016-08-25] MEDS: Pantoprazole 40 mg EC Tab PO SCH (08:44)
[2016-08-25] MEDS: Metoprolol Succinate 50 mg XL Tab PO SCH (08:45)
[2016-08-25] MEDS: acetaZOLAMIDE 500 mg SR Cap PO SCH (08:46)
[2016-08-25] MEDS: Multivitamin With Minerals Tab PO SCH (08:46)
--- NOTE | 2016-08-25 10:38 | CP.PCM.PN ---
Subjective - Date & Time of Evaluation Date of Evaluation: 08/25/16 Time of Evaluation: 10:36 - Subjective Subjective: Pt seems to be feeling much better. She will be discharged with a referral to Dr Muñoz in [place] for possible gamma knife resection of the mass. Objective - Vital Signs/Intake and Output Vital Signs (last 24 hours): Temp Pulse Resp BP Pulse Ox 98.1 F 102 H 18 116/63 98 08/25/16 08:25 08/25/16 08:45 08/25/16 08:25 08/25/16 08:48 08/25/16 08:25 - Medications Medications: Current Medications Acetazolamide (Diamox Sequels 500 Mg Sr Cap) 500 mg PO DAILY [facility] Last Admin: 08/25/16 08:46 Dose: 500 mg Aspirin (Aspirin Chewable) 81 mg PO DAILY [facility] Last Admin: 08/25/16 08:48 Dose: 81 mg Atorvastatin Calcium (Lipitor) 10 mg PO [facility] Last Admin: 08/24/16 21:34 Dose: 10 mg Cholecalciferol (Vitamin D) 2,000 iu PO DAILY [facility] Last Admin: 08/25/16 08:45 Dose: 2,000 iu Fluticasone Propionate (Flonase) 2 spr KEVIN DAILY [facility] Last Admin: 08/25/16 08:44 Dose: 2 spr Folic Acid (Folic Acid) 2 mg PO BID [facility] Last Admin: 08/25/16 08:44 Dose: 2 mg Furosemide (Lasix) 40 mg PO DAILY [facility] Last Admin: 08/25/16 08:48 Dose: 40 mg Gabapentin (Neurontin) 100 mg PO DAILY [facility] Last Admin: 08/25/16 08:45 Dose: 100 mg Gabapentin (Neurontin) 300 mg PO HS [facility] Last Admin: 08/24/16 21:34 Dose: 300 mg Hydroxychloroquine Sulfate (Plaquenil) 400 mg PO DAILY [facility] Last Admin: 08/25/16 08:49 Dose: 400 mg Ipratropium [place] (Atrovent) 0.5 mg IH RQ8 [facility] Last Admin: 08/25/16 07:49 Dose: 0.5 mg Lactic Acid (Lac-Hydrin 12% Lotion (225 G)) 1 applic TOP TID [facility] Last Admin: 08/25/16 08:48 Dose: 1 u Levalbuterol HCl (Xopenex) 1.25 mg INH RQ8 [facility] Last Admin: 08/25/16 07:49 Dose: 1.25 mg Methotrexate (Methotrexate) 15 mg PO SAT [facility] PRN Reason: Protocol Last Admin: 08/25/16 08:46 Dose: 15 mg Methylprednisolone (Medrol) 12 mg PO DAILY [facility] Last Admin: 08/25/16 08:46 Dose: 12 mg Metoprolol Succinate (Toprol Xl) 50 mg PO DAILY [facility] Last Admin: 08/25/16 08:45 Dose: 50 mg Mometasone Furoate (Asmanex Twisthaler 220 Mcg) 1 puff IH DAILY [facility] Last Admin: 08/25/16 08:43 Dose: 1 u Multivitamins/Minerals (Therapeutic-M Tab) 1 tab PO DAILY [facility] Last Admin: 08/25/16 08:46 Dose: 1 tab Pantoprazole Sodium (Protonix Ec Tab) 40 mg PO DAILY [facility] Last Admin: 08/25/16 08:44 Dose: 40 mg - Labs Labs: 08/24/16 06:51 08/24/16 06:51
--- NOTE | 2016-08-25 10:48 | CP.PCM.PN ---
Subjective - Date & Time of Evaluation Date of Evaluation: 08/25/16 Time of Evaluation: 10:45 - Subjective Subjective: Appears comfortable, seated in bedside chair. Arrangements underway for discharge. Equipment has been ordered. Discussed followup with her and her . Spoke to doctor at [facility] with arrangements being made for followup. Objective - Vital Signs/Intake and Output Vital Signs (last 24 hours): Temp Pulse Resp BP Pulse Ox 98.1 F 102 H 18 116/63 98 08/25/16 08:25 08/25/16 08:45 08/25/16 08:25 08/25/16 08:48 08/25/16 08:25 - Medications Medications: Current Medications Acetazolamide (Diamox Sequels 500 Mg Sr Cap) 500 mg PO DAILY COUNT INCLUDES THE [facility] Last Admin: 08/25/16 08:46 Dose: 500 mg Aspirin (Aspirin Chewable) 81 mg PO DAILY COUNT INCLUDES THE [facility] Last Admin: 08/25/16 08:48 Dose: 81 mg Atorvastatin Calcium (Lipitor) 10 mg PO HS COUNT INCLUDES THE [facility] Last Admin: 08/24/16 21:34 Dose: 10 mg Cholecalciferol (Vitamin D) 2,000 iu PO DAILY COUNT INCLUDES THE [facility] Last Admin: 08/25/16 08:45 Dose: 2,000 iu Fluticasone Propionate (Flonase) 2 spr KEVIN DAILY COUNT INCLUDES THE [facility] Last Admin: 08/25/16 08:44 Dose: 2 spr Folic Acid (Folic Acid) 2 mg PO BID COUNT INCLUDES THE [facility] Last Admin: 08/25/16 08:44 Dose: 2 mg Furosemide (Lasix) 40 mg PO DAILY COUNT INCLUDES THE [facility] Last Admin: 08/25/16 08:48 Dose: 40 mg Gabapentin (Neurontin) 100 mg PO DAILY COUNT INCLUDES THE [facility] Last Admin: 08/25/16 08:45 Dose: 100 mg Gabapentin (Neurontin) 300 mg PO HS COUNT INCLUDES THE [facility] Last Admin: 08/24/16 21:34 Dose: 300 mg Hydroxychloroquine Sulfate (Plaquenil) 400 mg PO DAILY COUNT INCLUDES THE [facility] Last Admin: 08/25/16 08:49 Dose: 400 mg Ipratropium [place] (Atrovent) 0.5 mg IH RQ8 COUNT INCLUDES THE [facility] Last Admin: 08/25/16 07:49 Dose: 0.5 mg Lactic Acid (Lac-Hydrin 12% Lotion (225 G)) 1 applic TOP TID COUNT INCLUDES THE [facility] Last Admin: 08/25/16 08:48 Dose: 1 u Levalbuterol HCl (Xopenex) 1.25 mg INH RQ8 COUNT INCLUDES THE [facility] Last Admin: 08/25/16 07:49 Dose: 1.25 mg Methotrexate (Methotrexate) 15 mg PO SAT COUNT INCLUDES THE [facility] PRN Reason: Protocol Last Admin: 08/25/16 08:46 Dose: 15 mg Methylprednisolone (Medrol) 12 mg PO DAILY COUNT INCLUDES THE [facility] Last Admin: 08/25/16 08:46 Dose: 12 mg Metoprolol Succinate (Toprol Xl) 50 mg PO DAILY COUNT INCLUDES THE [facility] Last Admin: 08/25/16 08:45 Dose: 50 mg Mometasone Furoate (Asmanex Twisthaler 220 Mcg) 1 puff IH DAILY COUNT INCLUDES THE [facility] Last Admin: 08/25/16 08:43 Dose: 1 u Multivitamins/Minerals (Therapeutic-M Tab) 1 tab PO DAILY COUNT INCLUDES THE [facility] Last Admin: 08/25/16 08:46 Dose: 1 tab Pantoprazole Sodium (Protonix Ec Tab) 40 mg PO DAILY COUNT INCLUDES THE [facility] Last Admin: 08/25/16 08:44 Dose: 40 mg - Labs Labs: 08/24/16 06:51 08/24/16 06:51 Assessment and Plan (1) Lung mass Status: Chronic (2) Hypercapnic respiratory failure, chronic Status: Chronic (3) COPD (chronic obstructive pulmonary disease) Status: Chronic
[2016-08-26] MEDS: Ipratropium 0.02% Inhal Soln (0.5 mg/2.5 ml) UD IH SCH ×4 (00:18→23:10)
[2016-08-26] MEDS: Levalbuterol 1.25 MG/3 ML Inhal Soln UD INH SCH ×4 (00:19→23:10)
[2016-08-26] MEDS: Mometasone 220 mcg/puff-14 puff Inh IH SCH (08:56)
[2016-08-26] MEDS: acetaZOLAMIDE 500 mg SR Cap PO SCH (08:56)
[2016-08-26] MEDS: Multivitamin With Minerals Tab PO SCH (08:57)
[2016-08-26] MEDS: Pantoprazole 40 mg EC Tab PO SCH (08:57)
[2016-08-26] MEDS: Metoprolol Succinate 50 mg XL Tab PO SCH (09:13)
[2016-08-26 17:05] VITALS: RESP 20
[2016-08-26 20:59] VITALS: O2SAT 98
[2016-08-27] MEDS: Ipratropium 0.02% Inhal Soln (0.5 mg/2.5 ml) UD IH SCH (07:52)
[2016-08-27] MEDS: Levalbuterol 1.25 MG/3 ML Inhal Soln UD INH SCH (07:52)
[2016-08-27] MEDS: Multivitamin With Minerals Tab PO SCH (08:09)
[2016-08-27] MEDS: Metoprolol Succinate 50 mg XL Tab PO SCH (08:09)
[2016-08-27 08:10] VITALS: BP 111/53; PULSE 65
[2016-08-27] MEDS: acetaZOLAMIDE 500 mg SR Cap PO SCH (08:10)
[2016-08-27] MEDS: Pantoprazole 40 mg EC Tab PO SCH (08:10)
[2016-08-27] MEDS: Mometasone 220 mcg/puff-14 puff Inh IH SCH (08:16)
[2016-08-27 08:26] VITALS: TEMP 97.8
--- NOTE | 2016-08-27 08:31 | CP.PCM.PN ---
Subjective - Date & Time of Evaluation Date of Evaluation: 08/27/16 Time of Evaluation: 08:27 - Subjective Subjective: Interim events reviewed. Vital signs have remained stable. Seated in bedside chair eating breakfast. Still expectorates a small amount of dark bloody sputum. Weight has been stable, vital signs are stable. Dependant edema is unchanged. Neck is supple and trachea is midline. Increased AP diameter of thorax with mild kyphosis. No dullness on percussion. Breath sounds are very much diminished bilaterally. No wheezes heard. Rare dry basal rales. No rhonchi. Heart sounds are very distant, irregular. Plan for discharge today. NIPPV using BiPAP at home. Patient given copies of her CT scans. Follow up arranged at [place]. Dermatology follow up locally as well for scalp lesion. Objective - Vital Signs/Intake and Output Vital Signs (last 24 hours): Temp Pulse Resp BP Pulse Ox 97.8 F 65 20 111/53 L 98 08/27/16 08:25 08/27/16 08:25 08/27/16 08:25 08/27/16 08:25 08/27/16 08:25 - Medications Medications: Current Medications Acetazolamide (Diamox Sequels 500 Mg Sr Cap) 500 mg PO DAILY COUNT INCLUDES THE [facility] Last Admin: 08/27/16 08:10 Dose: 500 mg Aspirin (Aspirin Chewable) 81 mg PO DAILY COUNT INCLUDES THE [facility] Last Admin: 08/27/16 08:10 Dose: 81 mg Atorvastatin Calcium (Lipitor) 10 mg PO HS COUNT INCLUDES THE [facility] Last Admin: 08/26/16 21:47 Dose: 10 mg Cholecalciferol (Vitamin D) 2,000 iu PO DAILY COUNT INCLUDES THE [facility] Last Admin: 08/27/16 08:10 Dose: 2,000 iu Fluticasone Propionate (Flonase) 2 spr KEVIN DAILY COUNT INCLUDES THE [facility] Last Admin: 08/27/16 08:16 Dose: 2 spr Folic Acid (Folic Acid) 2 mg PO BID COUNT INCLUDES THE [facility] Last Admin: 08/27/16 08:10 Dose: 2 mg Furosemide (Lasix) 40 mg PO DAILY COUNT INCLUDES THE [facility] Last Admin: 08/27/16 08:10 Dose: 40 mg Gabapentin (Neurontin) 100 mg PO DAILY COUNT INCLUDES THE [facility] Last Admin: 08/27/16 08:10 Dose: 100 mg Gabapentin (Neurontin) 300 mg PO HS COUNT INCLUDES THE [facility] Last Admin: 08/26/16 21:47 Dose: 300 mg Hydroxychloroquine Sulfate (Plaquenil) 400 mg PO DAILY COUNT INCLUDES THE [facility] Last Admin: 08/27/16 08:09 Dose: 400 mg Ipratropium [place] (Atrovent) 0.5 mg IH RQ8 COUNT INCLUDES THE [facility] Last Admin: 08/27/16 07:52 Dose: 0.5 mg Lactic Acid (Lac-Hydrin 12% Lotion (225 G)) 1 applic TOP TID COUNT INCLUDES THE [facility] Last Admin: 08/27/16 08:12 Dose: 1 u Levalbuterol HCl (Xopenex) 1.25 mg INH RQ8 COUNT INCLUDES THE [facility] Last Admin: 08/27/16 07:52 Dose: 1.25 mg Methotrexate (Methotrexate) 15 mg PO SAT COUNT INCLUDES THE [facility] PRN Reason: Protocol Last Admin: 08/25/16 08:46 Dose: 15 mg Methylprednisolone (Medrol) 12 mg PO DAILY COUNT INCLUDES THE [facility] Last Admin: 08/27/16 08:09 Dose: 12 mg Metoprolol Succinate (Toprol Xl) 50 mg PO DAILY COUNT INCLUDES THE [facility] Last Admin: 08/27/16 08:09 Dose: 50 mg Mometasone Furoate (Asmanex Twisthaler 220 Mcg) 1 puff IH DAILY COUNT INCLUDES THE [facility] Last Admin: 08/27/16 08:16 Dose: 1 u Multivitamins/Minerals (Therapeutic-M Tab) 1 tab PO DAILY COUNT INCLUDES THE [facility] Last Admin: 08/27/16 08:09 Dose: 1 tab Pantoprazole Sodium (Protonix Ec Tab) 40 mg PO DAILY COUNT INCLUDES THE [facility] Last Admin: 08/27/16 08:10 Dose: 40 mg - Labs Labs: 08/24/16 06:51 08/24/16 06:51 Assessment and Plan (1) Lung mass Assessment & Plan: 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 Status: Chronic (2) Hypercapnic respiratory failure, chronic Status: Chronic (3) COPD (chronic obstructive pulmonary disease) Status: Chronic
--- NOTE | 2016-08-27 14:53 | CP.PCM.DIS ---
Provider - Provider Date of Admission: 08/17/16 17:58 Attending physician: Buddy White MD Primary care physician: Consults: Pulmonary consult Hematology consult Time Spent in preparation of Discharge (in minutes): 20 Hospital Course - Lab Results Lab Results: Most Recent Lab Values WBC 9.3 K/uL (4.8-10.8) 08/24/16 06:51 RBC 3.49 Mil/uL (3.80-5.20) L 08/24/16 06:51 Hgb 11.6 g/dL (12.0-16.0) L 08/24/16 06:51 Hct 36.6 % (34.0-47.0) 08/24/16 06:51 MCV 104.9 fl (81.0-99.0) H 08/24/16 06:51 MCH 33.2 pg (27.0-31.0) H 08/24/16 06:51 MCHC 31.6 g/dL (33.0-37.0) L 08/24/16 06:51 RDW 17.5 % (11.5-14.5) H 08/24/16 06:51 Plt Count 147 K/uL (130-400) 08/24/16 06:51 MPV 9.4 fl (7.2-11.7) 08/24/16 06:51 Neut % (Auto) 84.0 % (50.0-75.0) H 08/24/16 06:51 Lymph % (Auto) 6.9 % (20.0-40.0) L 08/24/16 06:51 [place] % (Auto) 8.3 % (0.0-10.0) 08/24/16 06:51 Eos % (Auto) 0.6 % (0.0-4.0) 08/24/16 06:51 Baso % (Auto) 0.2 % (0.0-2.0) 08/24/16 06:51 Neut # 7.8 K/uL (1.8-7.0) H 08/24/16 06:51 Lymph # 0.6 K/uL (1.0-4.3) L 08/24/16 06:51 [place] # 0.8 K/uL (0.0-0.8) 08/24/16 06:51 Eos # 0.1 K/uL (0.0-0.7) 08/24/16 06:51 Baso # 0.0 K/uL (0.0-0.2) 08/24/16 06:51 Neutrophils % (Manual) 84 % (42-75) H 08/24/16 06:51 Lymphocytes % (Manual) 8 % (20-50) L 08/24/16 06:51 Monocytes % (Manual) 8 % (0-10) 08/24/16 06:51 Platelet Estimate Normal (NORMAL) 08/24/16 06:51 Anisocytosis (manual) Slight 08/24/16 06:51 Macrocytosis (manual) Slight 08/24/16 06:51 Sodium 140 mmol/l (132-148) 08/24/16 06:51 Potassium 3.7 MMOL/L (3.6-5.0) 08/24/16 06:51 Chloride 94 mmol/L (98-107) L 08/24/16 06:51 Carbon Dioxide 40 mmol/L (22-30) H* 08/24/16 06:51 Anion Gap 10 (10-20) 08/24/16 06:51 BUN 13 mg/dl (7-17) 08/24/16 06:51 Creatinine 0.8 mg/dL (0.7-1.2) 08/24/16 06:51 Est GFR ( Amer) > 60 08/24/16 06:51 Est GFR (Non-Af Amer) > 60 08/24/16 06:51 Random Glucose 96 mg/dL (65-105) 08/24/16 06:51 Calcium 9.2 mg/dL (8.4-10.2) 08/24/16 06:51 Total Bilirubin 0.5 mg/dl (0.2-1.3) 08/24/16 06:51 AST 29 U/L (14-36) 08/24/16 06:51 ALT 50 U/L (9-52) 08/24/16 06:51 Alkaline Phosphatase 64 U/L (38-126) 08/24/16 06:51 Total Protein 6.2 G/DL (6.3-8.2) L 08/24/16 06:51 Albumin 3.4 g/dL (3.5-5.0) L 08/24/16 06:51 Globulin 2.7 gm/dL (2.2-3.9) 08/24/16 06:51 Albumin/Globulin Ratio 1.3 (1.0-2.1) 08/24/16 06:51 - Hospital Course Hospital Course: 66 year old female (PMHx: COPD, CHF, HTN, HLD, RA, Chronic LE Edema, MAT) presented to the [facility] ER on 08/09/16 via EMS with her with a chief complaint of SOB. She was found to be in respiratory failure secondary to COPD Exacerbation and Bilateral Pneumonia. She was then transferred to ICU , placed on Bipap and high flow O2 via NC ,treated with IV Solumedrol tapering dose, Xopenex and IV antibiotics. CT Chest performed showed Left Upper Lobe mass suspicious for malignancy. She therefore underwent a Bronchoscopy on 08/16/16 and this showed extrinsic compression of STEPHEN and brushings were sent to Pathology for review and preliminary report shows Squamous Cell CA. She was stabilized and then transferred to [facility] TCU for further management and PT/OT. At present patient is stable at her baseline. She will be discharged home on O2 and Bipap with follow up at [place] for squamous cell CA of lung and with Dr. Yusuf her PMD. 1. Deconditioning Transferred and received physical therapy in TCU back at baseline will d/c patient home with family 2. Acute on Chronic Respiratory Failure with Hypoxia and Hypercapnea likely sec to COPD Exacerbation and PNA She completed IV antibiotic course - Zosyn and Azythromycin Followed closely by Dr. Yusuf pulmonary Patient is currently doing well on O2 via NC at 3 liters Methylprednisilone tapered and currently at 8 mg PO 1x/day on Xopenex neb treatment and Asmanex s/p Bronchoscopy 08/16 - noted STEPHEN lesion Continue Diamox daily Willdischarge on Home Bipap 17/08 and O2 via nC 3. STEPHEN Lobe Mass/ squamous cell carcinoma CT Chest #1 showed STEPHEN mass suspicious for malignancy with extension to mediastinum , hilum, tumor invasion to left main pulmonary artery and encasement of left upper lobe bronchus S/P Bronchoscopy 08/16/16 - noted STEPHEN lesion and brushings sent for Cytology: is Squamous Cell CA Hematology/Oncology Dr. Badillo consulted: Patient will follow up with [facility] 4. Bilateral pneumonia Treated with full course of IV antibiotics , Zosyn and Zithromax Chest X Ray 08/09/16 shows new RLL and STEPHEN infiltrates ID consulted Dr Cantor Rapid Influenza: neg Sputum c/s: negative Legionella: neg Mycoplasm IgM : neg 5. Hx of Multifocal Atrial Tachycardia and Episode of A Fib ASA 81 mg PO 1x/day Metoprolol 50 mg PO 1x/day She follows with Cardiology Dr. Cole as an outpatient and is currently not on anticoagulation 6. Chronic CHF (congestive heart failure), Diastolic Dysfunction/Pulm HTN This is a questionable diagnosis as the Echocardiogram done on 04/20/16 does not show evidence of Systolic or Diastolic Heart Failure. Metoprolol XL 50 mg PO 1x/day Lasix to 40 mg daily 7. HTN (hypertension) Metoprolol XL 50 mg PO QD 8. Hyperlipidemia Atorvastatin 10 mg PO QHS 9. GERD (gastroesophageal reflux disease) Protonix 40 mg PO 1x/day (on Omeprazole 20 mg PO 1x/day at home) 10. 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 Peripheral Vascular Disease/Chronic Venous Insufficiency Vascular Sx was consulted while on medical floor Art Doppler studies LE: decrease flow right more than left Neg DVT on LE Venous US Lac-hydrin lotion fo dry skin LE Continue ASA as above 12. Prophylactic measure Lovenox for DVT Prophylaxis Protonix for GI Prophylaxis MVI PO 1x/day Folic Acid 2 mg PO 2x/day Cholecalciferal 2,000 Units PO 1x/day Discharge Exam - Head Exam Head Exam: ATRAUMATIC, NORMOCEPHALIC Additional comments: obese - Eye Exam Eye Exam: EOMI, Normal appearance, PERRL - ENT Exam ENT Exam: Mucous Membranes Moist, Normal Exam - Neck Exam Neck exam: Full Rom, Normal Inspection - Respiratory Exam Respiratory Exam: Prolonged Expiratory Phase. absent: Rhonchi, Wheezes - Cardiovascular Exam Cardiovascular Exam: REGULAR RHYTHM, RRR, +S1, +S2. absent: JVD - GI/Abdominal Exam GI & Abdominal Exam: Normal Bowel Sounds, Soft. absent: Distended, Guarding, Rebound, Tenderness - Rectal Exam Rectal Exam: Deferred - Extremities Exam Extremities exam: pedal edema (1 +), pedal pulses present Additional comments: bilateral toe - Back Exam Back exam: NORMAL INSPECTION - Neurological Exam Neurological exam: Alert, Oriented x3, Reflexes Normal - Psychiatric Exam Psychiatric exam: Normal Affect - Skin Skin Exam: Dry, Warm Additional comments: multipl eechymotic areas to bilateral upper extremities and abdomen Discharge Plan - Discharge Medications Prescriptions: methylPREDNISolone [Medrol] 8 mg PO DAILY #60 tab Metoprolol Succinate [Toprol XL] 50 mg PO DAILY #30 tab - Follow Up Plan Condition: GOOD Disposition: HOME/ ROUTINE Patient education suggested?: Yes Instructions: COPD (Chronic Obstructive Pulmonary Disease) (DC), Fall Prevention (DC), BiPAP (GEN) Additional Instructions: discharge patient home, followup with PMD Dr. Chapo Yusuf [phone], on August 31, 2016 at 1:00pm. followup with Dermatology, Dr. Jero Mariee, call for appointment [phone] Muñoz at [place] Referrals: Chapo Yusuf MD [Family Provider] -
== END 2016-08-27 14:35 | disposition home health service (06) | DRG 189 ==
LOC: H.TCU 17:58
PROVIDERS: ADMIT Family Medicine; ATTEND Family Medicine
PROC: 5A09457 Assistance with Respiratory Ventilation, 24-96 Consecutive Hours, Continuous Positive Airway Pressure (ICD-10-PCS; principal; 2016-08-17)
PROC: F07Z9FZ Gait Training/Functional Ambulation Treatment using Assistive, Adaptive, Supportive or Protective Equipment (ICD-10-PCS; 2016-08-17)
PROC: F08Z4FZ Home Management Treatment using Assistive, Adaptive, Supportive or Protective Equipment (ICD-10-PCS; 2016-08-18)
PROC: F07M6FZ Therapeutic Exercise Treatment of Musculoskeletal System - Whole Body using Assistive, Adaptive, Supportive or Protective Equipment (ICD-10-PCS; 2016-08-19)
DX: J96.12 Chronic respiratory failure with hypercapnia (principal); J84.9 Interstitial pulmonary disease, unspecified; C34.90 Malignant neoplasm of unspecified part of unspecified bronchus or lung; I50.32 Chronic diastolic (congestive) heart failure; J44.1 Chronic obstructive pulmonary disease with (acute) exacerbation; I11.0 Hypertensive heart disease with heart failure; Z99.81 Dependence on supplemental oxygen; I48.91 Unspecified atrial fibrillation; I73.9 Peripheral vascular disease, unspecified; E78.5 Hyperlipidemia, unspecified; E78.00 Pure hypercholesterolemia, unspecified; I87.2 Venous insufficiency (chronic) (peripheral); M06.9 Rheumatoid arthritis, unspecified; K21.9 Gastro-esophageal reflux disease without esophagitis; E66.01 Morbid (severe) obesity due to excess calories; Z68.34 Body mass index [BMI] 34.0-34.9, adult; M19.90 Unspecified osteoarthritis, unspecified site; M40.209 Unspecified kyphosis, site unspecified; Z87.891 Personal history of nicotine dependence; Z79.82 Long term (current) use of aspirin; Z91.013 Allergy to seafood

== ENCOUNTER 2016-09-24 08:07 | Inpatient (IN) | payer MEDICARE, BC ==
[2016-09-24 08:08] VITALS: PULSE 103; BMI 35.0
[2016-09-24 08:48] LABS: VENOUS BLOOD GAS BASE EXCESS 18.6 mmol/L (0.0-2.0); VENOUS BLOOD GAS PCO2 123 mmHg (40-60); VENOUS BLOOD GAS PO2 32 mm/Hg (30-55); VENOUS BLOOD PH 7.24 (7.32-7.43)
[2016-09-24] MEDS ORDERED: Albuterol-Ipratrop 3 mg / 0.5 (3 ml) UD INH STA (08:53)
[2016-09-24 09:16] LABS: BASO % 0.1 % (0.0-2.0); HEMOGLOBIN 13.3 g/dL (12.0-16.0); LYMPH # 0.3 K/uL (1.0-4.3); LYMPH % 2.6 % (20.0-40.0); MEAN CELL VOLUME 105.6 fl (81.0-99.0); MEAN CORPUSCULAR HEMOGLOBIN 32.7 pg (27.0-31.0); MEAN CORPUSCULAR HGB CONC 30.9 g/dL (33.0-37.0); MEAN PLATELET VOLUME 9.1 fl (7.2-11.7); MONO # 0.5 K/uL (0.0-0.8); NEUT # 11.3 K/uL (1.8-7.0); NEUT % 93.3 % (50.0-75.0); NRBC % 0.1 % (0.0-0.0); PARTIAL THROMBOPLASTIN TIME 30.2 Seconds (25.6-37.1); PLATELET COUNT 229 K/uL (130-400); PROTHROMBIN TIME 11.5 Seconds (9.8-13.1); RBC 4.08 Mil/uL (3.80-5.20); RED CELL DISTRIBUTION WIDTH 16.2 % (11.5-14.5); WHITE BLOOD COUNT 12.1 K/uL (4.8-10.8)
--- NOTE | 2016-09-24 09:17 | ED PDOC ---
HPI: SOB/CHF/COPD Time Seen by Provider: 09/24/16 08:26 Chief Complaint (Nursing): Shortness Of Breath History Per: Patient History/Exam Limitations: no limitations Onset/Duration Of Symptoms: Gradual (this am) Current Symptoms Are (Timing): Still Present Current Respiratory Medications: See Home Med List Severity: Moderate Additional Complaint(s): pt brought by paramedics for eval of shortness of breath since last night. not relieved by nebulizers at home. pt is on home oxygen.pt presents with ox via nasal cannula. similar sx in the past due to copd. pmd omid Past Medical History Reviewed: Historical Data, Nursing Documentation, Vital Signs Vital Signs: Last Vital Signs Temp 98.9 F 09/24/16 08:15 Pulse 60 09/24/16 09:16 Resp 21 09/24/16 09:04 BP 136/59 L 09/24/16 08:15 Pulse Ox 95 09/24/16 09:24 - Medical History PMH: Anemia, Arthritis, Atrial Fibrillation, Bronchitis, Cardia Arrhythmia (MAT) , CHF, COPD, HTN, Hypercholesterolemia, Peripheral Edema, Rheumatoid Arthritis Denies: Asthma, HIV, Pneumonia, Chronic Kidney Disease - Surgical History Surgical History: Cholecystectomy - Family History Family History: States: Unknown Family Hx - Living Arrangements Living Arrangements: With Family - Immunization History Hx Tetanus Toxoid Vaccination: No Hx Influenza Vaccination: No Hx Pneumococcal Vaccination: No - Home Medications Home Medications: Ambulatory Orders Medication Instructions Recorded Aspirin [Aspirin Chewable] 81 mg PO DAILY #0 chew 07/15/15 Atorvastatin [Lipitor] 10 mg PO HS #0 tab 07/15/15 Gabapentin [Neurontin] 100 mg PO DAILY #0 cap 07/15/15 Gabapentin [Neurontin] 300 mg PO HS #0 cap 07/15/15 Methotrexate 15 mg PO SAT #0 tab 07/15/15 Cholecalciferol (Vitamin D3) 2,000 unit PO DAILY 04/23/16 [Vitamin D3] Folic Acid 2 mg PO BID 04/23/16 Hydroxychloroquine Sulfate 400 mg PO DAILY 04/23/16 [Plaquenil] Fluticasone Propionate [Flonase] 2 spr KEVIN DAILY #1 bottle 05/06/16 Mometasone [Asmanex Twisthaler 220 1 puff IH DAILY 08/09/16 MCG] Furosemide [Lasix] 40 mg PO DAILY tab 08/17/16 Ipratropium 0.02% [Atrovent] 0.5 mg IH RQ8 08/17/16 Levalbuterol [Xopenex] 1.25 mg INH RQ8 08/17/16 Multimineral/Multivitamin 1 tab PO DAILY tab 08/17/16 [Therapeutic-M Tab] Pantoprazole [Protonix EC Tab] 40 mg PO DAILY ect 08/17/16 acetaZOLAMIDE [Diamox Sequels 500 500 mg PO DAILY cer 08/17/16 mg SR Cap] Metoprolol Succinate [Toprol XL] 50 mg PO DAILY #30 tab 08/27/16 methylPREDNISolone [Medrol] 8 mg PO DAILY #60 tab 08/27/16 - Allergies Allergies/Adverse Reactions: Allergies Allergy/AdvReac Type Severity Reaction Status Date / Time shellfish derived Allergy RASH Verified 09/24/16 08:13 strawberry Allergy RASH Verified 09/24/16 08:13 Review of Systems ROS Statement: Except As Marked, All Systems Reviewed And Found Negative Constitutional: Negative for: Fever, Chills Cardiovascular: Negative for: Chest Pain, Palpitations Respiratory: Positive for: Shortness of Breath. Negative for: Cough Gastrointestinal: Negative for: Nausea, Vomiting, Abdominal Pain Musculoskeletal: Negative for: Neck Pain Neurological: Negative for: Weakness, Numbness Physical Exam - Reviewed Nursing Documentation Reviewed: Yes Vital Signs Reviewed: Yes - Physical Exam Appears: Positive for: In Acute Distress (mild) Head Exam: Positive for: ATRAUMATIC, NORMAL INSPECTION, NORMOCEPHALIC Skin: Positive for: Normal Color, Warm, Dry Eye Exam: Positive for: Normal appearance, EOMI, PERRL Neck: Positive for: Normal, Painless ROM, Supple Cardiovascular/Chest: Positive for: Regular Rate, Rhythm, Chest Non Tender, Edema (4+ to shins bl). Negative for: Bradycardia, Tachycardia Respiratory: Positive for: Decreased Breath Sounds (mod), Accessory Muscle Use ( mod), Wheezing (mod), Respiratory Distress (mild) Pulses-Dorsalis Pedis (L): 2+ Pulses-Dorsalis Pedis (R): 2+ Gastrointestinal/Abdominal: Positive for: Normal Exam, Bowel Sounds, Soft. Negative for: Tenderness Extremity: Positive for: Normal ROM, Swelling (mod with bl venous stasis changes ). 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 Negative for: Motor/Sensory Deficits - Laboratory Results Result Diagrams: 09/24/16 08:55 09/24/16 08:55 - ECG ECG: Positive for: Interpreted By Me ECG Rhythm: Positive for: Normal QRS, Normal ST Segment, Atrial Fibrillation. Negative for: ST/T Changes Interpretation Of Abn EKG: no st changes or twi O2 Sat by Pulse Oximetry: 95 Pulse Ox Interpretation: Other (on home o2) - Radiology X-Ray: Interpreted by Me X-Ray Interpretation: Other (moderate intersitial changes unchanged) - Progress ED Course And Treament: seen and eval by Dr. Yusuf in the ed. will admit to icu. Re-evaluation Time: 09:42 Condition: Improved Disposition - Clinical Impression Clinical Impression: Acute on chronic respiratory failure with hypoxia and hypercapnia - Patient ED Disposition Is Patient to be Admitted: Yes Counseled Patient/Family Regarding: Studies Performed, Diagnosis - Disposition Disposition Time: 09:42 Condition: CRITICAL - Pt Status Changed To: Hospital Disposition Of: Inpatient - Admit Certification Admit to Inpatient:: After my assessment, the patient will require hospitalization for at least two midnights. This is because of the severity of symptoms shown, intensity of services needed, and/or the medical risk in this patient being treated as an outpatient. - POA Present On Arrival: None
[2016-09-24 09:21] LABS: ALB/GLOB RATIO 1.1 (1.0-2.1); ALBUMIN 3.9 g/dL (3.5-5.0); ALT/SGPT 41 U/L (9-52); AST/SGOT 39 U/L (14-36); BLOOD UREA NITROGEN 18 mg/dl (7-17); CALCIUM 9.9 mg/dL (8.4-10.2); GFR AFRICAN-AMERICAN > 60; GFR NON-AFRICAN AMERICAN > 60
[2016-09-24 10:17] LABS: LYMPHOCYTE 2 % (20-50); MONOCYTE 8 % (0-10); NEUTROPHIL 90 % (42-75); NUCLEATED RED BLOOD CELL 1 % (0-0); PLATELET ESTIMATE NORMAL (NORMAL); TOTAL CELLS COUNTED 100
[2016-09-24 10:18] LABS: ANISOCYTOSIS SLIGHT; OVALOCYTES SLIGHT
[2016-09-24 10:19] LABS: LARGE PLATELETS PRESENT; PLATELET CLUMPS PRESENT; TEARDROP CELLS SLIGHT
--- NOTE | 2016-09-24 11:14 | CP.PCM.CON ---
History of Present Illness - History of Present Illness History of Present Illness: Patient initially seen in the emergency room where she presented by ambulance with decompensated hypercapnic ventilatory failure. She has had multiple hospital admissions because of her COPD with chronic hypercapnea and hypoxemia. She does use a BiPAP NIPPV device at home along wit supplemental oxygen. Recently she has been found to have a left upper lobe mass which returned pathology of squamous cell carcinoma on bronchoscopy. She has been seen ay [facility] with PET scan and needle biopsy of an 'avid uptake' nodule ont the left side of her back which also returned pathology of squamous cell carcinoma. Genetic mutation studies are still pending on this last biopsy specimen. She has continued to take all of her medication a s prescribed at home , but has had a recent decline in her mental status consistent with CO2 narcosis prompting her to call an ambulance. She has not been having any chest pain or change in her cough or sputum expectoration. She has been at baseline for GALLEGOS at home as well. There has been no recent febrile illness or known ill contacts. Review of Systems - Review of Systems All systems: reviewed and no additional remarkable complaints except - Constitutional Constitutional: Daytime Sleepiness, Weakness - Cardiovascular Cardiovascular: Leg Edema - Respiratory Respiratory: Dyspnea on Exertion - Integumentary Integumentary: Erythema, Swelling - Neurological Neurological: Behavioral Changes, Confusion Past Patient History - Infectious Disease Hx of Infectious Diseases: None - Tetanus Immunizations Tetanus Immunization: Unknown - Past Medical History & Family History Past Medical History?: Yes - Past Social History Smoking Status: Former Smoker Chewing Tobacco Use: No Cigar Use: No Alcohol: Social Drugs: Denies Home Situation {Lives}: With Family - CARDIAC Hx Atrial Fibrillation: Yes Hx Cardia Arrhythmia: Yes (MAT) Hx Congestive Heart Failure: Yes Hx Hypercholesterolemia: Yes Hx Hypertension: Yes Hx Peripheral Edema: Yes - PULMONARY Hx Chronic Obstructive Pulmonary Disease (COPD): Yes Hx Lung Cancer: Yes Hx Pneumonia: Yes - NEUROLOGICAL Hx Neurological Disorder: No - HEENT Hx HEENT Problems: No - RENAL Hx Chronic Kidney Disease: No - ENDOCRINE/METABOLIC Hx Endocrine Disorders: No - HEMATOLOGICAL/ONCOLOGICAL Hx Anemia: Yes Hx Human Immunodeficiency Virus (HIV): No - INTEGUMENTARY Other/Comment: Chronic lower extremity changes related to dependant edema - MUSCULOSKELETAL/RHEUMATOLOGICAL Hx Rheumatoid Arthritis: Yes - GASTROINTESTINAL Hx Gastroesophageal Reflux: Yes - GENITOURINARY/GYNECOLOGICAL Hx Genitourinary Disorders: No - PSYCHIATRIC Hx Psychophysiologic Disorder: No Hx Substance Use: No - SURGICAL HISTORY Hx Cholecystectomy: Yes - ANESTHESIA Hx Anesthesia: Yes Hx Anesthesia Reactions: No Hx Malignant Hyperthermia: No Meds Home Medications: Home Medication List Medication Instructions Recorded Confirmed Type Aspirin 81 mg PO DAILY 7 Days 09/24/16 Rx Allergies/Adverse Reactions: Allergies Allergy/AdvReac Type Severity Reaction Status Date / Time shellfish derived Allergy RASH Verified 09/24/16 08:13 strawberry Allergy RASH Verified 09/24/16 08:13 Physical Exam - Additional Findings Additional findings: Chronically ill appearing, somnolent female who awakens briefly when stimulated. Overweight with 2+ dependant edema of both LE's. Erythema w/o increased warmth in both LE's. Chronic derm changes of both legs noter as well. Small bandage covering recent biopsy site posteriorly on the left back. Wearing BiPAP mask and pharynx not examined. Neck appears supple and trachea is midline. No visible JVD. No dullness on chest percussion, no subcutaneous emphysema. Breath sounds are present bilaterally, diminished w/o audible wheezes. Few dry dependant rales heard posteriorly ion both lungs. No bronchial breath sounds appreciated. Heart sounds are distant and rhythm is regular. NO murmur is heard. Abdomen is soft, fleshy and non-tender. Flapping tremor is noted on extension of the left hand. Nailbeds are dusky but no overt cyanosis noted. Results - Vital Signs Recent Vital Signs: Last Vital Signs Temp 98.1 F 09/24/16 10:41 Pulse 67 09/24/16 10:41 Resp 20 09/24/16 10:41 BP 136/68 09/24/16 10:41 Pulse Ox 92 L 09/24/16 10:41 - Labs Result Diagrams: 09/25/16 04:20 09/25/16 04:20 Assessment & Plan (1) Acute on chronic respiratory failure with hypoxia and hypercapnia Status: Acute Priority: High Comment: Maintain on NIPPV with supplemental oxygenation. Monitor ABG's and adjust accordingly. Treatment for underlying COPD with aerosol therapy and parenteral corticosteroids. Empiric antibiotic therapy for the present time. (2) CO2 narcosis Status: Acute Priority: High (3) Bronchogenic carcinoma of left lung Status: Acute Priority: High Comment: Stage IV disease. Awaiting further reports from last biopsy. - Assessment and Plan (Free Text) Plan: Continue maintenance medications as indicated for comorbid illness. - Date & Time Date: 09/24/16 Time: 11:14
--- NOTE | 2016-09-24 11:19 | CP.PCM.HP ---
History of Present Illness - History of Present Illness History of Present Illness: 66 year old female wth PMHx COPD, CHF, HTN, HLD, RA, Chronic LE Edema, MAT, 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 Patient is well known to our service from prior admissions. She is a chronic CO2 retainer with PCO2 baseline 80 . As per she was noticed to have respiratory wheezing by visiting nurse couple of days ago and her pulmonary increased her steroid dose with improvement. Today the noticed that she is very lethargic so decided to bring her to ER. VBG in ER showed PCO2 120 so she was polacved on Bipap , given Duonebs and Solumderol and pulmonary consulted. 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 as per she was having some SOB with wheezing , no increased sough , sputum production , no fever PMD ; Dr. Yusuf Code status : full code Surrogate decision maker ; Present on Admission - Present on Admission Any Indicators Present on Admission: No Past Patient History - Infectious Disease Hx of Infectious Diseases: None - Tetanus Immunizations Tetanus Immunization: Unknown - Past Medical History & Family History Past Medical History?: Yes - Past Social History Smoking Status: Former Smoker - CARDIAC Hx Atrial Fibrillation: Yes Hx Cardia Arrhythmia: Yes (MAT) Hx Congestive Heart Failure: Yes Hx Hypercholesterolemia: Yes Hx Hypertension: Yes Hx Peripheral Edema: Yes - PULMONARY Hx Respiratory Disorders: Yes - NEUROLOGICAL Hx Neurological Disorder: No - HEENT Hx HEENT Problems: No - RENAL Hx Chronic Kidney Disease: No - ENDOCRINE/METABOLIC Hx Endocrine Disorders: No - HEMATOLOGICAL/ONCOLOGICAL Hx Anemia: Yes Hx Human Immunodeficiency Virus (HIV): No - INTEGUMENTARY Other/Comment: Chronic lower extremity changes related to dependant edema - MUSCULOSKELETAL/RHEUMATOLOGICAL Hx Arthritis: Yes Hx Rheumatoid Arthritis: Yes - GASTROINTESTINAL Hx Gastroesophageal Reflux: Yes - GENITOURINARY/GYNECOLOGICAL Hx Genitourinary Disorders: No - PSYCHIATRIC Hx Substance Use: No - SURGICAL HISTORY Hx Cholecystectomy: Yes - ANESTHESIA Hx Anesthesia: Yes Hx Anesthesia Reactions: No Hx Malignant Hyperthermia: No Meds Home Medications: Home Medication List Medication Instructions Recorded Confirmed Type Aspirin 81 mg PO DAILY 7 Days 09/24/16 Rx Allergies/Adverse Reactions: Allergies Allergy/AdvReac Type Severity Reaction Status Date / Time shellfish derived Allergy RASH Verified 09/24/16 08:13 strawberry Allergy RASH Verified 09/24/16 08:13 Results - Vital Signs Recent Vital Signs: Last Vital Signs Temp 98.1 F 09/24/16 10:41 Pulse 67 09/24/16 10:41 Resp 20 09/24/16 10:41 BP 136/68 09/24/16 10:41 Pulse Ox 92 L 09/24/16 10:41 - Labs Result Diagrams: 09/24/16 08:55 09/24/16 08:55 Assessment & Plan - Assessment and Plan (Free Text) Assessment: 66 year old female wth PMHx COPD, CHF, HTN, HLD, RA, Chronic LE Edema, MAT, 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 Patient is well known to our service from prior admissions. She is a chronic CO2 retainer with PCO2 baseline 80 . As per she was noticed to have respiratory wheezing by visiting nurse couple of days ago and her pulmonary increased her steroid dose with improvement. Today the noticed that she is very lethargic so decided to bring her to ER. VBG in ER showed PCO2 120 so she was polacved on Bipap , given Duonebs and Solumderol and pulmonary consulted. At present patient is unable tpo provide any history and can not answer any questoions due to lethargy As per she has been following up at [facility] for her lung cancer and PET scan done recently shoed metastasis 1. Acute on Chronic Respiratory Failure with Hypoxia and Hypercapnea likely sec to COPD Exacerbation Will admit patient to ICU on Bipap pulmonary consult with Dr. Yusuf Solumedrol IV, Duonebs, Zosyn, vanco, zithromax Patient has guarded prognosis CXR showed chronic intestitial changes with questionable RLL infiltrate 2.Metastatic squamous cell carcinoma of thew lung Patient following up with [facility] recent PET scan showed metastatic disease 3. Altered mental status econdary to CO2 narcosis lethargic at present on BIPAP if no improvemnet may need to intubate ABG stat 4. Suspected Bilateral pneumonia Start Zosyn, Vanco and Zithromax empirically 5. Hx of Multifocal Atrial Tachycardia and Episode of A Fib ASA 81 mg PO 1x/day Metoprolol 50 mg PO 1x/day She follows with Cardiology Dr. Cole as an outpatient and is currently not on anticoagulation 6. Chronic CHF (congestive heart failure), Diastolic Dysfunction/Pulm HTN Continue Metoprolol and Lasix 7. HTN (hypertension) resume metoprolol 8. Hyperlipidemia Atorvastatin 10 mg PO QHS 9. GERD (gastroesophageal reflux disease) Protonix 40 mg IV 10. 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 Peripheral Vascular Disease/Chronic Venous Insufficiency with chronic LE edema and venous stasis Lac-hydrin lotion fo dry skin LE Continue ASA 12. Prophylactic measure Lovenox for DVT Prophylaxis Protonix for GI Prophylaxis
[2016-09-24] MEDS ORDERED: Potassium Ch 20mEq in D5-1/2NS 1,000 ML IV SCH (12:00)
[2016-09-24] MEDS ORDERED: Dextrose 5%/0.45% NS 1,000 ML IV SCH (12:17)
[2016-09-24 12:19] LABS: ABG ALLEN TEST YES; ARTERIAL BLOOD GAS HCO3 39.2 mmol/L (21-28); ARTERIAL BLOOD GAS HEMOGLOBIN 13.8 g/dL (11.7-17.4); ARTERIAL BLOOD GAS O2 CAPACITY 18.5 mL/dL (16-24); ARTERIAL BLOOD GAS O2 CONTENT 17.5 ML/dL (15-23); ARTERIAL BLOOD GAS O2 SAT 94.6 % (95-98); ARTERIAL BLOOD GAS PCO2 109 mm/Hg (35-45); ARTERIAL BLOOD GAS PH 7.28 (7.35-7.45); ARTERIAL BLOOD GAS PO2 63 mm/Hg (80-100); ARTERIAL BLOOD GAS TCO2 54.5 mmol/L (22-28)
[2016-09-24] MEDS ORDERED: Sodium Chloride 3% for Inhalation 4 ML VIAL.NEB IH PRN (12:24)
[2016-09-24] MEDS: Albuterol-Ipratrop 3 mg / 0.5 (3 ml) UD INH SCH ×2 (12:44→19:26)
[2016-09-24] MEDS: Azithromycin 500 MG in Sodium Chloride 0.9% 250 ML IVPB SCH (13:27)
[2016-09-24 13:33] LABS: SQUAMOUS EPITHIAL < 1 /hpf (0-5); URINE BACTERIA RARE (<OCC); URINE BILIRUBIN NEGATIVE (NEGATIVE); URINE CLARITY SLIGHTY-CLOUDY (Clear); URINE COLOR YELLOW (YELLOW); URINE GLUCOSE (UA) NEG (Normal); URINE LEUKOCYTE ESTERASE MOD Leu/uL (Negative); URINE NITRATE NEGATIVE (NEGATIVE); URINE PROTEIN 30 mg/dL (NEGATIVE); URINE UROBILINOGEN 0.2-1.0 mg/dL (0.2-1.0)
[2016-09-24 13:37] LABS: URINE AMORPHOUS SEDIMENT OCC /ul (<OCC); URINE BLOOD SMALL (NEGATIVE)
[2016-09-24] MEDS ORDERED: Lidocaine 1% Inj (20ml) ONE (15:30)
--- NOTE | 2016-09-24 15:33 | RAD ---
HISTORY: shortness of breath COMPARISON: 08/16/2016 FINDINGS: LUNGS: Bilateral interstitial fibrotic changes. PLEURA: No significant pleural effusion identified, no pneumothorax apparent. CARDIOVASCULAR: Normal. OSSEOUS STRUCTURES: No significant abnormalities. VISUALIZED UPPER ABDOMEN: Normal. OTHER FINDINGS: None. IMPRESSION: Bilateral interstitial fibrotic changes.
--- NOTE | 2016-09-24 16:00 | PCM.SURG1 ---
Surgeon's Initial Post Op Note - Surgeon's Notes Surgeon: Rob Nathan MD Production Graphic Designer: None Type of Anesthesia: Local Pre-Operative Diagnosis: Poor venous access Operative Findings: Patent right basilic vein. Post-Operative Diagnosis: Poor venous access Operation Performed: Dual lumen picc placement right basilic vein, 37 cm. Tip in SVC. Specimen/Specimens Removed: None Estimated Blood Loss: EBL {In ML}: 2 Blood Products Given: N/A Drains Used: No Drains Post-Op Condition: Poor Date of Surgery/Procedure: 09/24/16 Time of Surgery/Procedure: 16:00
[2016-09-24] MEDS ORDERED: methylPREDNISolone 60 MG in Sodium Chloride 0.9% 50 ML IVPB SCH (17:00)
[2016-09-24] MEDS: Acetylcysteine 10% 4 ML IH SCH (19:26)
[2016-09-24] MEDS: Piperacillin/Tazobact 3.375 GM in Sodium Chloride 0.9% 100 ML IVPB SCH (21:11)
--- NOTE | 2016-09-24 23:33 | PN ---
DATE: 09/24/2016 LOCATION: The patient in ICU bed 431, time spent 45 minutes. The patient was seen and evaluated at the bedside. Events in the ER reviewed, discussed with ER physician. SUBJECTIVE: The patient is a 66-year-old female with history significant for chronic obstructive pulmonary disease, congestive heart failure, hypertension, hyperlipidemia, rheumatoid arthritis, peripheral edema, anemia, arthritis with recently diagnosed squamous cell carcinoma involving left lung. The patient has been on home oxygen, was brought to the emergency room by ambulance, reportedly increasing shortness of breath since last night. In the ER, the patient was noted to be lethargic. Vital signs showed temperature 98.9, heart rate 57, respiratory rate 20, saturation 100% on oxygen 2 liters nasal cannula. Blood pressure 136/59. Examination was significant for reduced breath sounds, lethargic, minimal response to verbal commands. Chest x-ray showed no acute infiltrate. VBG obtained showed elevated CO2. The patient was placed on BiPAP, rate 16, FiO2 of 40%, IPAP 16, EPAP 6. Admitted to ICU after given Solu-Medrol 125 mg and treated with bronchodilator. In the ICU, the patient remains lethargic but arousable, able to follow commands. REVIEW OF SYSTEMS: No fever, chills, occasional dry cough, nonproductive, no pleuritic pain, no abdominal pain or diarrhea. No dysuria. ALLERGIES: SHELLFISH AND STRAWBERRY. PHYSICAL EXAMINATION GENERAL: A middle-aged female, looks older than her stated age, currently alert, awake, able to follow commands. No acute distress noted. VITAL SIGNS: Temperature 98.1, heart rate 84, blood pressure 136/68, mean arterial pressure 90, oxygen saturation 92 on BiPAP 40%. Intake and output not noted. Weight 198 pounds. HEAD, EYES, EARS, NOSE, AND THROAT: Pupils are 2 to 3 mm, midpoint. No nystagmus. NECK: Supple. Trachea central. CHEST: Bilateral breath sounds present, diminished in intensity, expiration prolonged. HEART: Rhythm regular. S1 and S2 normal intensity. No S3, S4, gallop. No audible murmur. ABDOMEN: Bowel sounds are present. Soft. Liver and spleen not palpable. Bladder not distended. EXTREMITIES: Ecchymosis on both hands. Flapping tremor positive. Lower extremities with 1 to 2+ edema. Dorsalis pedis palpable. SKIN: Red and stage I decubitus sacral area. NEUROLOGIC: No cranial nerve deficit. No motor deficit. No sensory impairment. Plantar flexor. LABORATORY DATA: SMA-7, sodium 144, potassium 3.6, chloride 90, CO2 of 47, blood urea nitrogen 18, creatinine 0.8, random glucose 124, calcium 9.9, total bilirubin 0.8. AST 39, ALT 41, alkaline phosphatase 98, total protein 7.7, albumin 3.9. WBC 12.1, hemoglobin 13.3, hematocrit 43, platelet count 229, neutrophils 93, lymphocytes 2.6, monocytes 4. PT 11.5, INR 1, PTT 30.2. MEDICATIONS: At home include, acetazolamide 400 mg p.o. daily, aspirin 81 mg p.o. daily, atorvastatin 10 mg daily, cholecalciferol 2000 units daily, folic acid 1 mg daily, Flonase 2 sprays both nostrils daily, furosemide 40 mg daily, gabapentin 300 mg at night, hydroxychloroquine 200 mg two tablets daily, ipratropium bromide (Atrovent) every 8 hours, Xopenex 1.25 mg every 8 hours, methotrexate 2.5 mg tablet 6 tablets weekly, methylprednisolone 8 mg daily, Toprol 50 mg daily, Asmanex 1 puff daily, multivitamin tablet daily, Protonix 40 mg daily. IMPRESSION: 1. Hypoxic, toxic, metabolic encephalopathy. CO2 narcosis, currently on BiPAP 16/6 with 40%. Followup arterial blood gas. Intubate as needed / support mechanical ventilation. 2. Cardiac: History of congestive heart failure, current chest x-ray does not show any evidence of pulmonary congestion. To Follow proBNP and echocardiogram report, if not done in the past, to repeat. 3. Pulmonary: Chronic obstructive pulmonary disease exacerbation with hypoxemia, on home oxygen, continue BiPAP. DuoNeb 3 mL via nebulizer q.6 hours. Short course systemic steroids, prednisone 40 mg p.o. daily for 5 days. Continue Rocephin 1 g IV daily, Zithromax 500 mg IV daily. 4. Endocrinology: Maintain blood sugar less than 180 mg. 5. Hematology: Hemoglobin stable. Leukocytosis probably related to chronic steroid dependence and/or due to superimposed infection, currently on antibiotics empirically. Follow blood culture and urine culture report. 6. Renal: Stable. 7. GI: Maintain on low carbohydrate diet. 8. Best practice: Keep head off bed 40 degrees up. Maintain blood sugar less than 180 mg. 9. DVT and GI prophylaxis. Case discussed with pulmonary consultants. Pedro Cifuentes MD SH[facility]
[2016-09-25 05:37] LABS: BLOOD UREA NITROGEN 18 mg/dl (7-17); CALCIUM 9.7 mg/dL (8.4-10.2); GFR AFRICAN-AMERICAN > 60; GFR NON-AFRICAN AMERICAN > 60
[2016-09-25 05:51] LABS: ABG ALLEN TEST YES; ARTERIAL BLOOD GAS HCO3 40.8 mmol/L (21-28); ARTERIAL BLOOD GAS O2 CAPACITY 17.5 mL/dL (16-24); ARTERIAL BLOOD GAS O2 CONTENT 17.4 ML/dL (15-23); ARTERIAL BLOOD GAS O2 SAT 99.3 % (95-98); ARTERIAL BLOOD GAS PCO2 98 mm/Hg (35-45); ARTERIAL BLOOD GAS PH 7.33 (7.35-7.45); ARTERIAL BLOOD GAS PO2 112 mm/Hg (80-100); ARTERIAL BLOOD GAS TCO2 54.7 mmol/L (22-28)
[2016-09-25 05:51] LABS: BASO % 0.1 % (0.0-2.0); HEMOGLOBIN 12.1 g/dL (12.0-16.0); LYMPH # 0.1 K/uL (1.0-4.3); LYMPH % 1.6 % (20.0-40.0); MEAN CELL VOLUME 104.9 fl (81.0-99.0); MEAN CORPUSCULAR HEMOGLOBIN 32.8 pg (27.0-31.0); MEAN CORPUSCULAR HGB CONC 31.3 g/dL (33.0-37.0); MEAN PLATELET VOLUME 9.2 fl (7.2-11.7); MONO # 0.1 K/uL (0.0-0.8); NEUT # 7.3 K/uL (1.8-7.0); NEUT % 97.3 % (50.0-75.0); NRBC % 0.2 % (0.0-0.0); PLATELET COUNT 162 K/uL (130-400); RBC 3.67 Mil/uL (3.80-5.20); WHITE BLOOD COUNT 7.5 K/uL (4.8-10.8)
[2016-09-25] MEDS: Acetylcysteine 10% 4 ML IH SCH ×2 (07:30→19:07)
[2016-09-25] MEDS: Albuterol-Ipratrop 3 mg / 0.5 (3 ml) UD INH SCH ×4 (07:31→19:07)
[2016-09-25] MEDS: Enoxaparin 40 mg Syringe SC SCH (08:59)
[2016-09-25] MEDS: Azithromycin 500 MG in Sodium Chloride 0.9% 250 ML IVPB SCH (09:01)
[2016-09-25] MEDS: Piperacillin/Tazobact 3.375 GM in Sodium Chloride 0.9% 100 ML IVPB SCH ×2 (09:01→20:22)
--- NOTE | 2016-09-25 09:34 | CP.PCM.PN ---
Subjective - Date & Time of Evaluation Date of Evaluation: 09/25/16 Time of Evaluation: 09:31 - Subjective Subjective: Seen on morning rounds in the ICU. Interim entries in the EMR were reviewed. Case discussed with the owner professional engineer. Patient awake and significantly improved from yesterday. Has remained afebrile with good O2 sats and not tachycardic. No leukocytosis, decreased CO2. ABG modestly improved. Communicative, alert, not confused. PICC line and clark catheter inserted. Dependant edema of LE's is slightly less, erythema about the same. Neck is supple and trachea midline. Chest findings about the same as yesterday w/o wheezing. Few dependant rales are present in the dependant regions of both lungs. Heart sounds unchanged, irregular rhythm, afib/rate controlled. Abdomen is soft with good BS. Will reduce steroid dose and d/c azithromycin. Begin clear liquid diet with short periods off BiPAP. Resume acetazolamide PO. Not likely to need intubation. If stable today would transfer out of ICU by tomorrow. Objective - Vital Signs/Intake and Output Vital Signs (last 24 hours): Temp Pulse Resp BP Pulse Ox 97.3 F L 84 20 149/65 99 09/25/16 08:00 09/25/16 08:00 09/25/16 08:00 09/25/16 08:00 09/25/16 08:00 Intake and Output: 09/24/16 09/25/16 23:59 11:59 Intake Total 768 336 Output Total 175 200 Balance 593 136 - Medications Medications: Current Medications Acetaminophen (Tylenol 325mg Tab) 650 mg PO Q6H PRN PRN Reason: Pain, Mild (1-3) Acetaminophen (Tylenol 325mg Tab) 650 mg PO Q6H PRN PRN Reason: Fever >100.4 F Acetazolamide (Diamox Sequels 500 Mg Sr Cap) 500 mg PO DAILY [facility] Acetylcysteine (Mucomyst 10% 4ml) 2 ml IH RBID [facility] Last Admin: 09/25/16 07:30 Dose: 2 ml Albuterol/Ipratropium (Duoneb 3 Mg/0.5 Mg (3 Ml) Ud) 3 ml INH RQID [facility] Last Admin: 09/25/16 07:31 Dose: 3 ml Clotrimazole (Lotrimin 1% Cream) 1 applic TOP BID [facility] Last Admin: 09/25/16 08:58 Dose: 1 applic Enoxaparin Sodium (Lovenox) 40 mg SC DAILY [facility] PRN Reason: Protocol Last Admin: 09/25/16 08:59 Dose: 40 mg Folic Acid (Folic Acid) 2 mg PO BID [facility] Last Admin: 09/25/16 08:58 Dose: 2 mg Hydroxychloroquine Sulfate (Plaquenil) 400 mg PO DAILY [facility] Last Admin: 09/25/16 08:59 Dose: 400 mg Potassium Chloride/Dextrose/Sod Cl (Potassium Chl 20 Meq In D5-1/2ns) 1,000 mls @ 42 mls/hr IV .[id number] [facility] Stop: 09/25/16 11:54 Last Admin: 09/24/16 16:37 Dose: 42 mls/hr Vancomycin HCl 1 gm/ Sodium (Chloride) 250 mls @ 166.667 mls/hr IVPB DAILY [facility] Last Admin: 09/25/16 09:00 Dose: 166.667 mls/hr Piperacillin Sod/Tazobactam (Sod 3.375 gm/ Sodium Chloride) 100 mls @ 100 mls/ hr IVPB Q12 [facility] Last Admin: 09/25/16 09:01 Dose: 100 mls/hr Methylprednisolone 40 mg/ (Sodium Chloride) 50 mls @ 100 mls/hr IVPB Q12 [facility] Methotrexate (Methotrexate) 15 mg PO QWK [facility] PRN Reason: Protocol Ondansetron HCl (Zofran Inj) 4 mg IVP Q6H PRN PRN Reason: Nausea/Vomiting Pantoprazole Sodium (Protonix Inj) 40 mg IVP DAILY [facility] Last Admin: 09/25/16 08:59 Dose: 40 mg - Labs Labs: 09/25/16 04:20 09/25/16 04:20 PT 11.5 Seconds (9.8-13.1) 09/24/16 08:55 INR 1.0 (0.9-1.2) 09/24/16 08:55 APTT 30.2 Seconds (25.6-37.1) 09/24/16 08:55 Assessment and Plan (1) Acute on chronic respiratory failure with hypoxia and hypercapnia Status: Acute (2) CO2 narcosis Status: Acute (3) Bronchogenic carcinoma of left lung Status: Acute
--- NOTE | 2016-09-25 10:10 | CP.PCM.PN ---
Subjective - Date & Time of Evaluation Date of Evaluation: 09/25/16 Time of Evaluation: 10:00 - Subjective Subjective: No fever still with SOB Pt on Bipap : 15/08/17/50% denies CO no abd pain no leg pain Objective - Vital Signs/Intake and Output Vital Signs (last 24 hours): Temp Pulse Resp BP Pulse Ox 97.3 F L 84 20 149/65 99 09/25/16 08:00 09/25/16 08:00 09/25/16 08:00 09/25/16 08:00 09/25/16 08:00 Intake and Output: 09/25/16 09/25/16 06:59 18:59 Intake Total 520 1326 Output Total 200 150 Balance 320 1176 - Medications Medications: Current Medications Acetaminophen (Tylenol 325mg Tab) 650 mg PO Q6H PRN PRN Reason: Pain, Mild (1-3) Acetaminophen (Tylenol 325mg Tab) 650 mg PO Q6H PRN PRN Reason: Fever >100.4 F Acetazolamide (Diamox Sequels 500 Mg Sr Cap) 500 mg PO DAILY [facility] Acetylcysteine (Mucomyst 10% 4ml) 2 ml IH RBID [facility] Last Admin: 09/25/16 07:30 Dose: 2 ml Albuterol/Ipratropium (Duoneb 3 Mg/0.5 Mg (3 Ml) Ud) 3 ml INH RQID [facility] Last Admin: 09/25/16 07:31 Dose: 3 ml Clotrimazole (Lotrimin 1% Cream) 1 applic TOP BID [facility] Last Admin: 09/25/16 08:58 Dose: 1 applic Enoxaparin Sodium (Lovenox) 40 mg SC DAILY [facility] PRN Reason: Protocol Last Admin: 09/25/16 08:59 Dose: 40 mg Folic Acid (Folic Acid) 2 mg PO BID [facility] Last Admin: 09/25/16 08:58 Dose: 2 mg Hydroxychloroquine Sulfate (Plaquenil) 400 mg PO DAILY [facility] Last Admin: 09/25/16 08:59 Dose: 400 mg Potassium Chloride/Dextrose/Sod Cl (Potassium Chl 20 Meq In D5-1/2ns) 1,000 mls @ 42 mls/hr IV .[id number] [facility] Stop: 09/25/16 11:54 Last Admin: 09/24/16 16:37 Dose: 42 mls/hr Vancomycin HCl 1 gm/ Sodium (Chloride) 250 mls @ 166.667 mls/hr IVPB DAILY [facility] Last Admin: 09/25/16 09:00 Dose: 166.667 mls/hr Piperacillin Sod/Tazobactam (Sod 3.375 gm/ Sodium Chloride) 100 mls @ 100 mls/ hr IVPB Q12 [facility] Last Admin: 09/25/16 09:01 Dose: 100 mls/hr Methylprednisolone 40 mg/ (Sodium Chloride) 50 mls @ 100 mls/hr IVPB Q12 [facility] Methotrexate (Methotrexate) 15 mg PO QWK [facility] PRN Reason: Protocol Ondansetron HCl (Zofran Inj) 4 mg IVP Q6H PRN PRN Reason: Nausea/Vomiting Pantoprazole Sodium (Protonix Inj) 40 mg IVP DAILY [facility] Last Admin: 09/25/16 08:59 Dose: 40 mg - Labs Labs: 09/25/16 04:20 09/25/16 04:20 PT 11.5 Seconds (9.8-13.1) 09/24/16 08:55 INR 1.0 (0.9-1.2) 09/24/16 08:55 APTT 30.2 Seconds (25.6-37.1) 09/24/16 08:55 - Constitutional Appears: Older Than Stated Age, Chronically Ill - Head Exam Head Exam: NORMAL INSPECTION, NORMOCEPHALIC - Eye Exam Eye Exam: EOMI, Normal appearance Pupil Exam: NORMAL ACCOMODATION - ENT Exam ENT Exam: Mucous Membranes Dry, Normal External Ear Exam - Neck Exam Neck Exam: Full ROM. absent: Meningismus - Respiratory Exam Respiratory Exam: Accessory Muscle Use, Decreased Breath Sounds, Rales, Rhonchi , Respiratory Distress Additional comments: Bipap in place - Cardiovascular Exam Cardiovascular Exam: Irregular Rhythm, +S1, +S2 - GI/Abdominal Exam GI & Abdominal Exam: Soft, Normal Bowel Sounds. absent: Tenderness - Extremities Exam Additional comments: RLE cold toes erythematous bilat LE- chronic stasis skin changes - Back Exam Back Exam: absent: CVA tenderness (L), CVA tenderness (R) - Neurological Exam Neurological Exam: Alert, Awake, CN II-XII Intact, Oriented x3 Neuro motor strength exam: Left Upper Extremity: 5, Right Upper Extremity: 5, Left Lower Extremity: 5, Right Lower Extremity: 5 - Psychiatric Exam Psychiatric exam: Flat Affect - Skin Skin Exam: Dry, Normal Color, Warm Assessment and Plan - Assessment and Plan (Free Text) Assessment: 66 year old female wth PMHx COPD, CHF, HTN, HLD, RA, Chronic LE Edema, MAT, 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 Hx of Chronic Resp Insuff on home Oxygen and Bipap presented to ER with SOB, lethargy and drowsiness. Patient is well known to our service from prior admissions. She is a chronic CO2 retainer with PCO2 baseline 80 . As per she was noticed to have respiratory wheezing by visiting nurse couple of days ago and her PMD increased her steroid dose with improvement. On day of admission , the noticed that she is very lethargic so decided to bring her to ER. VBG in ER showed PCO2 120 so she was placed on Bipap , given Duonebs and Solumedrol and pulmonary consulted. As per she has been following up at [facility] for her lung cancer and PET scan done recently showed metastasis 1. Acute on Chronic Respiratory Failure with Hypoxia and Hypercapnea likely sec to COPD Exacerbation Pt is in ICU on Bipap pulmonary consulted: Dr. Yusuf cont Solumedrol IV, Duonebs, Zosyn, vanco, zithromax CXR showed chronic intestitial changes with questionable RLL infiltrate started on Actazolamide 2.Metastatic squamous cell carcinoma of the lung Patient following up with [facility] recent PET scan showed metastatic disease 3. Altered mental status econdary to CO2 narcosis lethargic at present on BIPAP 4. Suspected Bilateral pneumonia Started Zosyn, Vanco and Zithromax empirically Sputum c/s Blood c/s 5. Hx of Multifocal Atrial Tachycardia and Episode of A Fib ASA 81 mg PO 1x/day Metoprolol 50 mg PO 1x/day She follows with Cardiology Dr. Cole as an outpatient and is currently not on anticoagulation 6. Chronic CHF (congestive heart failure), Diastolic Dysfunction/Pulm HTN Continue Metoprolol and Lasix 7. HTN (hypertension) resume metoprolol 8. Hyperlipidemia Atorvastatin 10 mg PO QHS 9. GERD (gastroesophageal reflux disease) Protonix 40 mg IV 10. 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 Peripheral Vascular Disease/Chronic Venous Insufficiency with chronic LE edema and venous stasis Lac-hydrin lotion fo dry skin LE Continue ASA 12. Prophylactic measure Lovenox for DVT Prophylaxis Protonix for GI Prophylaxis
[2016-09-25] MEDS: methylPREDNISolone 40 MG in Sodium Chloride 0.9% 50 ML IVPB SCH ×2 (10:14→20:23)
[2016-09-25 12:34] LABS: ANISOCYTOSIS SLIGHT; BANDS 3 % (0-2); LYMPHOCYTE 2 % (20-50); MONOCYTE 1 % (0-10); NEUTROPHIL 94 % (42-75); PLATELET ESTIMATE NORMAL (NORMAL); TOTAL CELLS COUNTED 100
[2016-09-25 12:35] LABS: LARGE PLATELETS PRESENT
[2016-09-25] MEDS: acetaZOLAMIDE 500 mg SR Cap PO SCH (16:10)
--- NOTE | 2016-09-25 18:00 | CP.CCUPN ---
CCU Subjective - Physician Review Events Since Last Encounter (Free Text): 09/25/16 18:03 The patient was Seen and examined by me at the bedside, Medical records reviewed and Management issues were discussed and formulated with the house staff. Clinically improving, more awake and responsive, tolerating PO diet. Afebrile. No CP, less dyspneic Improved Respiratory status and ABG showing decreasing CO2 level Afebrile CCU Objective - Vital Signs / Intake & Output Vital Signs (Last 4 hours): Vital Signs Temp Pulse Resp BP Pulse Ox 09/25/16 16:00 97.9 F 72 20 138/59 L 99 09/25/16 15:46 71 09/25/16 14:00 73 29 H 146/66 100 Intake and Output (Last 8hrs): Intake & Output 09/25/16 09/25/16 09/25/16 06:59 14:59 22:59 Intake Total 336 1844 518 Output Total 200 230 70 Balance 136 1614 448 Weight 190 lb 8 oz Intake: IV 336 294 168 Intake, Piggyback 850 Oral 700 350 Output: Urine 200 230 70 Urethral (Cary) 200 230 70 - Physical Exam Physical Exam Limitations: Positive for: Clinical Condition Head: Positive for: Atraumatic, Normocephalic Pupils: Positive for: PERRL. Negative for: Sluggish, Non-Reactive Extroacular Muscles: Positive for: EOMI Conjunctiva: Positive for: Normal. Negative for: Injected, Icteric Mouth: Positive for: Moist Mucous Membranes Pharnyx: Positive for: Normal. Negative for: ERYTHEMA, EXUDATE Nose (Internal): Positive for: Normal Inspection Neck: Positive for: Normal Range of Motion Respiratory/Chest: Positive for: Decreased Breath Sounds, Rales, Tachypneic. Negative for: Respiratory Distress, Accessory Muscle Use, Wheezes, Rhonchi Cardiovascular: Positive for: Irregular Rhythm, Peripheal Pulses Present. Negative for: Murmurs, Tachycardic, Bradycardic Abdomen: Positive for: Normal Bowel Sounds. Negative for: Tenderness, Distention, Peritoneal Signs, Mass/Organomegaly Upper Extremity: Positive for: Normal Inspection, NORMAL PULSES, Capillary Refill < 2s. Negative for: Cyanosis, Edema Lower Extremity: Positive for: Edema, NORMAL PULSES, Other (Chronic Bilateral stasis, skin erythema). Negative for: Normal Inspection, CALF TENDERNESS Neurological: Positive for: GCS=15, CN II-XII Intact, Speech Normal, Motor Func Grossly Intact, Normal Sensory Function - Medications Active Medications: Active Medications Generic Name Dose Route Start Last Admin Trade Name Freq PRN Reason Stop Dose Admin Acetaminophen 650 mg 09/24/16 12:17 Tylenol 325mg Tab PO Q6H PRN Pain, Mild (1-3) Acetaminophen 650 mg 09/24/16 12:17 Tylenol 325mg Tab PO Q6H PRN Fever >100.4 F Acetazolamide 500 mg 09/25/16 09:00 09/25/16 16:10 Diamox Sequels 500 Mg Sr Cap PO 500 mg DAILY [facility] Administration Acetylcysteine 2 ml 09/24/16 20:00 09/25/16 07:30 Mucomyst 10% 4ml IH 2 ml RBID [facility] Administration Albuterol/Ipratropium 3 ml 09/24/16 12:00 09/25/16 15:45 Duoneb 3 Mg/0.5 Mg (3 Ml) Ud INH 3 ml RQID [facility] Administration Clotrimazole 1 applic 09/24/16 17:00 09/25/16 08:58 Lotrimin 1% Cream TOP 1 applic BID [facility] Administration Enoxaparin Sodium 40 mg 09/25/16 09:00 09/25/16 08:59 Lovenox SC 40 mg DAILY [facility] Administration Protocol Folic Acid 2 mg 09/24/16 17:00 09/25/16 16:10 Folic Acid PO 2 mg BID [facility] Administration Hydroxychloroquine Sulfate 400 mg 09/25/16 09:00 09/25/16 08:59 Plaquenil PO 400 mg DAILY [facility] Administration Vancomycin HCl 1 gm/ Sodium 250 mls @ 166.667 mls/hr 09/25/16 09:00 09/25/16 09:00 Chloride IVPB 166.667 mls/hr DAILY [facility] Administration Piperacillin Sod/Tazobactam 100 mls @ 100 mls/hr 09/24/16 21:00 09/25/16 09: 01 Sod 3.375 gm/ Sodium Chloride IVPB 100 mls/hr Q12 [facility] Administration Methylprednisolone 40 mg/ 50 mls @ 100 mls/hr 09/25/16 09:00 09/25/16 10:14 Sodium Chloride IVPB Not Given Q12 [facility] Methotrexate 15 mg 09/24/16 12:15 Methotrexate PO QWK [facility] Protocol Ondansetron HCl 4 mg 09/24/16 12:17 Zofran Inj IVP Q6H PRN Nausea/Vomiting Pantoprazole Sodium 40 mg 09/24/16 12:00 09/25/16 08:59 Protonix Inj IVP 40 mg DAILY [facility] Administration - Patient Studies Lab Studies: Microbiology Studies 09/24/16 13:08 Urine Culture - Preliminary Urine,Cary Gram Positive Cocci Lab Studies 09/25/16 09/25/16 09/25/16 Range/Units 16:11 11:51 05:39 WBC (4.8-10.8) K/uL RBC (3.80-5.20) Mil/uL Hgb (12.0-16.0) g/dL Hct (34.0-47.0) % MCV (81.0-99.0) fl MCH (27.0-31.0) pg MCHC (33.0-37.0) g/dL RDW (11.5-14.5) % Plt Count (130-400) K/uL MPV (7.2-11.7) fl Neut % (Auto) (50.0-75.0) % Lymph % (Auto) (20.0-40.0) % Sutter % (Auto) (0.0-10.0) % Eos % (Auto) (0.0-4.0) % Baso % (Auto) (0.0-2.0) % Neut # (1.8-7.0) K/uL Lymph # (1.0-4.3) K/uL Sutter # (0.0-0.8) K/uL Eos # (0.0-0.7) K/uL Baso # (0.0-0.2) K/uL Neutrophils % (Manual) (42-75) % Band Neutrophils % (0-2) % Lymphocytes % (Manual) (20-50) % Monocytes % (Manual) (0-10) % Platelet Estimate (NORMAL) Large Platelets Anisocytosis (manual) Macrocytosis (manual) pCO2 98 H* (35-45) mm/Hg pO2 112 H (80-100) mm/Hg HCO3 40.8 H* (21-28) mmol/L ABG pH 7.33 L (7.35-7.45) ABG Total CO2 54.7 H (22-28) mmol/L ABG O2 Saturation 99.3 H (95-98) % ABG O2 Content 17.4 (15-23) ML/dL ABG Base Excess 20.5 H (-2.0-3.0) mmol/L ABG Hemoglobin 13.0 (11.7-17.4) g/dL ABG Carboxyhemoglobin 2.7 H (0.5-1.5) % POC ABG HHb (Measured) 0.7 (0.0-5.0) % ABG Methemoglobin 2.1 (0.0-3.0) % ABG O2 Capacity 17.5 (16-24) mL/dL Jorge Luis Test Yes A-a O2 Difference 122.0 mm/Hg Hgb O2 Saturation 94.6 L (95.0-98.0) % Vent Mode Bipap Mechanical Rate 18 FiO2 50.0 % Inspiratory BiPAP 16 Expiratory BiPAP 6 Crit Value Called To Martha prado rn Crit Value Called By 6075 Crit Value Read Back Y Blood Gas Notified Time 550 Sodium (132-148) mmol/l Potassium (3.6-5.0) MMOL/L Chloride (98-107) mmol/L Carbon Dioxide (22-30) mmol/L Anion Gap (10-20) BUN (7-17) mg/dl Creatinine (0.7-1.2) mg/dL Est GFR ( Amer) Est GFR (Non-Af Amer) POC Glucose (mg/dL) 169 H 160 H (65-110) mg/dL Random Glucose (65-105) mg/dL Calcium (8.4-10.2) mg/dL 09/25/16 09/25/16 09/25/16 Range/Units 04:20 04:20 04:18 WBC 7.5 (4.8-10.8) K/uL RBC 3.67 L (3.80-5.20) Mil/uL Hgb 12.1 (12.0-16.0) g/dL Hct 38.5 (34.0-47.0) % MCV 104.9 H (81.0-99.0) fl MCH 32.8 H (27.0-31.0) pg MCHC 31.3 L (33.0-37.0) g/dL RDW 16.0 H (11.5-14.5) % Plt Count 162 (130-400) K/uL MPV 9.2 (7.2-11.7) fl Neut % (Auto) 97.3 H (50.0-75.0) % Lymph % (Auto) 1.6 L (20.0-40.0) % Sutter % (Auto) 1.0 (0.0-10.0) % Eos % (Auto) 0.0 (0.0-4.0) % Baso % (Auto) 0.1 (0.0-2.0) % Neut # 7.3 H (1.8-7.0) K/uL Lymph # 0.1 L (1.0-4.3) K/uL Sutter # 0.1 (0.0-0.8) K/uL Eos # 0.0 (0.0-0.7) K/uL Baso # 0.0 (0.0-0.2) K/uL Neutrophils % (Manual) 94 H (42-75) % Band Neutrophils % 3 H (0-2) % Lymphocytes % (Manual) 2 L (20-50) % Monocytes % (Manual) 1 (0-10) % Platelet Estimate Normal (NORMAL) Large Platelets Present Anisocytosis (manual) Slight Macrocytosis (manual) Slight pCO2 (35-45) mm/Hg pO2 (80-100) mm/Hg HCO3 (21-28) mmol/L ABG pH (7.35-7.45) ABG Total CO2 (22-28) mmol/L ABG O2 Saturation (95-98) % ABG O2 Content (15-23) ML/dL ABG Base Excess (-2.0-3.0) mmol/L ABG Hemoglobin (11.7-17.4) g/dL ABG Carboxyhemoglobin (0.5-1.5) % POC ABG HHb (Measured) (0.0-5.0) % ABG Methemoglobin (0.0-3.0) % ABG O2 Capacity (16-24) mL/dL Jorge Luis Test A-a O2 Difference mm/Hg Hgb O2 Saturation (95.0-98.0) % Vent Mode Mechanical Rate FiO2 % Inspiratory BiPAP Expiratory BiPAP Crit Value Called To Crit Value Called By Crit Value Read Back Blood Gas Notified Time Sodium 142 (132-148) mmol/l Potassium 4.1 (3.6-5.0) MMOL/L Chloride 92 L (98-107) mmol/L Carbon Dioxide 44 H* (22-30) mmol/L Anion Gap 10 (10-20) BUN 18 H (7-17) mg/dl Creatinine 0.7 (0.7-1.2) mg/dL Est GFR ( Amer) > 60 Est GFR (Non-Af Amer) > 60 POC Glucose (mg/dL) 115 H (65-110) mg/dL Random Glucose 140 H (65-105) mg/dL Calcium 9.7 (8.4-10.2) mg/dL 09/24/16 Range/Units 22:32 WBC (4.8-10.8) K/uL RBC (3.80-5.20) Mil/uL Hgb (12.0-16.0) g/dL Hct (34.0-47.0) % MCV (81.0-99.0) fl MCH (27.0-31.0) pg MCHC (33.0-37.0) g/dL RDW (11.5-14.5) % Plt Count (130-400) K/uL MPV (7.2-11.7) fl Neut % (Auto) (50.0-75.0) % Lymph % (Auto) (20.0-40.0) % Sutter % (Auto) (0.0-10.0) % Eos % (Auto) (0.0-4.0) % Baso % (Auto) (0.0-2.0) % Neut # (1.8-7.0) K/uL Lymph # (1.0-4.3) K/uL Sutter # (0.0-0.8) K/uL Eos # (0.0-0.7) K/uL Baso # (0.0-0.2) K/uL Neutrophils % (Manual) (42-75) % Band Neutrophils % (0-2) % Lymphocytes % (Manual) (20-50) % Monocytes % (Manual) (0-10) % Platelet Estimate (NORMAL) Large Platelets Anisocytosis (manual) Macrocytosis (manual) pCO2 (35-45) mm/Hg pO2 (80-100) mm/Hg HCO3 (21-28) mmol/L ABG pH (7.35-7.45) ABG Total CO2 (22-28) mmol/L ABG O2 Saturation (95-98) % ABG O2 Content (15-23) ML/dL ABG Base Excess (-2.0-3.0) mmol/L ABG Hemoglobin (11.7-17.4) g/dL ABG Carboxyhemoglobin (0.5-1.5) % POC ABG HHb (Measured) (0.0-5.0) % ABG Methemoglobin (0.0-3.0) % ABG O2 Capacity (16-24) mL/dL Jorge Luis Test A-a O2 Difference mm/Hg Hgb O2 Saturation (95.0-98.0) % Vent Mode Mechanical Rate FiO2 % Inspiratory BiPAP Expiratory BiPAP Crit Value Called To Crit Value Called By Crit Value Read Back Blood Gas Notified Time Sodium (132-148) mmol/l Potassium (3.6-5.0) MMOL/L Chloride (98-107) mmol/L Carbon Dioxide (22-30) mmol/L Anion Gap (10-20) BUN (7-17) mg/dl Creatinine (0.7-1.2) mg/dL Est GFR ( Amer) Est GFR (Non-Af Amer) POC Glucose (mg/dL) 140 H (65-110) mg/dL Random Glucose (65-105) mg/dL Calcium (8.4-10.2) mg/dL Laboratory Results - last 24 hr 09/24/16 09/25/16 09/25/16 22:32 04:18 04:20 WBC 7.5 RBC 3.67 L Hgb 12.1 Hct 38.5 MCV 104.9 H MCH 32.8 H MCHC 31.3 L RDW 16.0 H Plt Count 162 MPV 9.2 Neut % (Auto) 97.3 H Lymph % (Auto) 1.6 L Sutter % (Auto) 1.0 Eos % (Auto) 0.0 Baso % (Auto) 0.1 Neut # 7.3 H Lymph # 0.1 L Sutter # 0.1 Eos # 0.0 Baso # 0.0 Neutrophils % (Manual) 94 H Band Neutrophils % 3 H Lymphocytes % (Manual) 2 L Monocytes % (Manual) 1 Platelet Estimate Normal Large Platelets Present Anisocytosis (manual) Slight Macrocytosis (manual) Slight pCO2 pO2 HCO3 ABG pH ABG Total CO2 ABG O2 Saturation ABG O2 Content ABG Base Excess ABG Hemoglobin ABG Carboxyhemoglobin POC ABG HHb (Measured) ABG Methemoglobin ABG O2 Capacity Jorge Luis Test A-a O2 Difference Hgb O2 Saturation Vent Mode Mechanical Rate FiO2 Inspiratory BiPAP Expiratory BiPAP Crit Value Called To Crit Value Called By Crit Value Read Back Blood Gas Notified Time Sodium Potassium Chloride Carbon Dioxide Anion Gap BUN Creatinine Est GFR ( Amer) Est GFR (Non-Af Amer) POC Glucose (mg/dL) 140 H 115 H Random Glucose Calcium 09/25/16 09/25/16 09/25/16 04:20 05:39 11:51 WBC RBC Hgb Hct MCV MCH MCHC RDW Plt Count MPV Neut % (Auto) Lymph % (Auto) Sutter % (Auto) Eos % (Auto) Baso % (Auto) Neut # Lymph # Sutter # Eos # Baso # Neutrophils % (Manual) Band Neutrophils % Lymphocytes % (Manual) Monocytes % (Manual) Platelet Estimate Large Platelets Anisocytosis (manual) Macrocytosis (manual) pCO2 98 H* pO2 112 H HCO3 40.8 H* ABG pH 7.33 L ABG Total CO2 54.7 H ABG O2 Saturation 99.3 H ABG O2 Content 17.4 ABG Base Excess 20.5 H ABG Hemoglobin 13.0 ABG Carboxyhemoglobin 2.7 H POC ABG HHb (Measured) 0.7 ABG Methemoglobin 2.1 ABG O2 Capacity 17.5 Jorge Luis Test Yes A-a O2 Difference 122.0 Hgb O2 Saturation 94.6 L Vent Mode Bipap Mechanical Rate 18 FiO2 50.0 Inspiratory BiPAP 16 Expiratory BiPAP 6 Crit Value Called To Martha prado rn Crit Value Called By 6075 Crit Value Read Back Y Blood Gas Notified Time 550 Sodium 142 Potassium 4.1 Chloride 92 L Carbon Dioxide 44 H* Anion Gap 10 BUN 18 H Creatinine 0.7 Est GFR ( Amer) > 60 Est GFR (Non-Af Amer) > 60 POC Glucose (mg/dL) 160 H Random Glucose 140 H Calcium 9.7 09/25/16 16:11 WBC RBC Hgb Hct MCV MCH MCHC RDW Plt Count MPV Neut % (Auto) Lymph % (Auto) Sutter % (Auto) Eos % (Auto) Baso % (Auto) Neut # Lymph # Sutter # Eos # Baso # Neutrophils % (Manual) Band Neutrophils % Lymphocytes % (Manual) Monocytes % (Manual) Platelet Estimate Large Platelets Anisocytosis (manual) Macrocytosis (manual) pCO2 pO2 HCO3 ABG pH ABG Total CO2 ABG O2 Saturation ABG O2 Content ABG Base Excess ABG Hemoglobin ABG Carboxyhemoglobin POC ABG HHb (Measured) ABG Methemoglobin ABG O2 Capacity Jorge Luis Test A-a O2 Difference Hgb O2 Saturation Vent Mode Mechanical Rate FiO2 Inspiratory BiPAP Expiratory BiPAP Crit Value Called To Crit Value Called By Crit Value Read Back Blood Gas Notified Time Sodium Potassium Chloride Carbon Dioxide Anion Gap BUN Creatinine Est GFR ( Amer) Est GFR (Non-Af Amer) POC Glucose (mg/dL) 169 H Random Glucose Calcium Fingerstick Blood Sugar Results: 169 Review of Systems - Cardiovascular Cardiovascular: absent: Acrocyanosis, Chest Pain, Chest Pain at Rest, Chest Pain with Activity, Claudication, Diaphoresis - Respiratory Respiratory: Cough, Dyspnea. absent: Hemoptysis, Dyspnea on Exertion, Wheezing , Snoring, Stridor - Gastrointestinal Gastrointestinal: absent: Abdominal Pain, Vomiting Critical Care Progress Note - Nutrition Nutrition: Nutrition Category Date Time Status Liquid Diet [DIET] Diets 09/25/16 Breakfast Active Assessment/Plan (1) Acute on chronic respiratory failure with hypoxia and hypercapnia Current Visit: Yes Status: Acute Priority: High Comment: ALBUTEROL/Atrovent Nebs q6h PRN IV Vanco, Zithromax and Zosyn IV Solumedrol Pulmonary evaluation appretiated Aggressive pulmonary toilet, chest PT, suctioning Wean off BIPAP keep SaO2 >92% (2) Bronchogenic carcinoma of left lung Current Visit: Yes Status: Acute Priority: High Comment: Stage 4 with ecent PET scan showing metastatic disease Pain controlled (3) Bilateral pneumonia Current Visit: Yes Status: Acute Priority: High Comment: IV Vanco, Zithromax and Zosyn Follow up blood and sputum C/S Check urine legionella and pneumococcus/strep antigen (4) CO2 narcosis Current Visit: Yes Status: Acute Priority: High Comment: Impreoved mental status, now Alert and oriented x3. (5) COPD exacerbation Current Visit: Yes Status: Acute Priority: High Comment: As per Resp failure (6) Prophylactic measure Current Visit: No Status: Acute Comment: Pantoprazole 40 mg PO DAILY Lovenox 40 mg SC DAILY [facility]
[2016-09-26 06:07] LABS: BLOOD UREA NITROGEN 18 mg/dl (7-17); CALCIUM 9.8 mg/dL (8.4-10.2); GFR AFRICAN-AMERICAN > 60; GFR NON-AFRICAN AMERICAN > 60
[2016-09-26 06:16] LABS: HEMOGLOBIN 11.5 g/dL (12.0-16.0); LYMPH # 0.1 K/uL (1.0-4.3); LYMPH % 1.1 % (20.0-40.0); MEAN CELL VOLUME 105.4 fl (81.0-99.0); MEAN CORPUSCULAR HEMOGLOBIN 33.1 pg (27.0-31.0); MEAN CORPUSCULAR HGB CONC 31.4 g/dL (33.0-37.0); MEAN PLATELET VOLUME 9.6 fl (7.2-11.7); MONO # 0.2 K/uL (0.0-0.8); MONO % 1.8 % (0.0-10.0); NEUT # 10.6 K/uL (1.8-7.0); NEUT % 97.1 % (50.0-75.0); PLATELET COUNT 163 K/uL (130-400); RBC 3.46 Mil/uL (3.80-5.20); RED CELL DISTRIBUTION WIDTH 15.9 % (11.5-14.5); WHITE BLOOD COUNT 10.9 K/uL (4.8-10.8)
[2016-09-26] MEDS: Acetylcysteine 10% 4 ML IH SCH (08:03)
[2016-09-26] MEDS: Albuterol-Ipratrop 3 mg / 0.5 (3 ml) UD INH SCH ×4 (08:03→19:16)
--- NOTE | 2016-09-26 08:14 | CP.PCM.PN ---
Subjective - Date & Time of Evaluation Date of Evaluation: 09/26/16 Time of Evaluation: 08:12 - Subjective Subjective: SEEN ON MORNING ROUNDS IN ICU. Interim entries in EMR reviewed. Has tolerated periods OFF BiPAP ventilator for meals. Urine gram stain shows gm pos cocci, ID pending. AM labs shows CO2 44, same as the day before. AM ABG is pending. Awake and cooperative, follows commands. Vocalizing, but voice is very soft. Coughed up a small amount of clear mucoid sputum during exam. Dependant edema of LE's is gradually decreasing, erythema w/o warmth is still present. No cyanosis noted. Ecchymosis mostly on RUE. PICC line intact and in use. Mild flushed facies, no jaundice. Trachea midline, neck supple. Breath sounds diminished bilaterally, scattered high-pitched E wheezing bilaterally. Rare dry lower lobe rales w/o bronchial breathing. Heart sounds are distant, rhythm irregular, rate controlled. Tried OFF BiPAP this morning, but became dyspneic after 30min. ABG showed very gradual decrease in PaCO2, but normal pH and slightly high sat at 98%. Placed back on BiPAP mask ventilation and aerosol therapy given. All other medications will remain the same today. Discussed above with [employer] supervisor. Questionable for transfer after the above. Consider resuming gabapentin for her neuropathic LE pain. Objective - Vital Signs/Intake and Output Vital Signs (last 24 hours): Temp Pulse Resp BP Pulse Ox 98.2 F 72 16 142/72 99 09/26/16 04:00 09/26/16 06:00 09/26/16 06:00 09/26/16 06:00 09/26/16 06:00 Intake and Output: 09/25/16 09/26/16 23:59 11:59 Intake Total 1196 16 Output Total 150 200 Balance 1046 -184 - Medications Medications: Current Medications Acetaminophen (Tylenol 325mg Tab) 650 mg PO Q6H PRN PRN Reason: Pain, Mild (1-3) Acetaminophen (Tylenol 325mg Tab) 650 mg PO Q6H PRN PRN Reason: Fever >100.4 F Acetazolamide (Diamox Sequels 500 Mg Sr Cap) 500 mg PO DAILY [facility] Last Admin: 09/25/16 16:10 Dose: 500 mg Albuterol/Ipratropium (Duoneb 3 Mg/0.5 Mg (3 Ml) Ud) 3 ml INH RQID [facility] Last Admin: 09/26/16 08:03 Dose: 3 ml Clotrimazole (Lotrimin 1% Cream) 1 applic TOP BID [facility] Last Admin: 09/25/16 22:00 Dose: 1 applic Enoxaparin Sodium (Lovenox) 40 mg SC DAILY [facility] PRN Reason: Protocol Last Admin: 09/25/16 08:59 Dose: 40 mg Folic Acid (Folic Acid) 2 mg PO BID [facility] Last Admin: 09/25/16 16:10 Dose: 2 mg Hydroxychloroquine Sulfate (Plaquenil) 400 mg PO DAILY [facility] Last Admin: 09/25/16 08:59 Dose: 400 mg Vancomycin HCl 1 gm/ Sodium (Chloride) 250 mls @ 166.667 mls/hr IVPB DAILY [facility] Last Admin: 09/25/16 09:00 Dose: 166.667 mls/hr Piperacillin Sod/Tazobactam (Sod 3.375 gm/ Sodium Chloride) 100 mls @ 100 mls/ hr IVPB Q12 [facility] Last Admin: 09/25/16 20:22 Dose: 100 mls/hr Methylprednisolone 40 mg/ (Sodium Chloride) 50 mls @ 100 mls/hr IVPB Q12 [facility] Last Admin: 09/25/16 20:23 Dose: 100 mls/hr Methotrexate (Methotrexate) 15 mg PO QWK [facility] PRN Reason: Protocol Ondansetron HCl (Zofran Inj) 4 mg IVP Q6H PRN PRN Reason: Nausea/Vomiting Pantoprazole Sodium (Protonix Inj) 40 mg IVP DAILY [facility] Last Admin: 09/25/16 08:59 Dose: 40 mg - Labs Labs: 09/26/16 04:20 09/26/16 04:20 PT 11.5 Seconds (9.8-13.1) 09/24/16 08:55 INR 1.0 (0.9-1.2) 09/24/16 08:55 APTT 30.2 Seconds (25.6-37.1) 09/24/16 08:55 Assessment and Plan (1) Acute on chronic respiratory failure with hypoxia and hypercapnia Status: Acute (2) CO2 narcosis Status: Acute (3) Bronchogenic carcinoma of left lung Status: Acute
[2016-09-26 08:16] LABS: ABG ALLEN TEST YES; ARTERIAL BLOOD GAS HCO3 40.9 mmol/L (21-28); ARTERIAL BLOOD GAS HEMOGLOBIN 12.2 g/dL (11.7-17.4); ARTERIAL BLOOD GAS O2 CAPACITY 16.6 mL/dL (16-24); ARTERIAL BLOOD GAS O2 CONTENT 16.3 ML/dL (15-23); ARTERIAL BLOOD GAS O2 SAT 98.2 % (95-98); ARTERIAL BLOOD GAS PCO2 92 mm/Hg (35-45); ARTERIAL BLOOD GAS PH 7.35 (7.35-7.45); ARTERIAL BLOOD GAS PO2 84 mm/Hg (80-100); ARTERIAL BLOOD GAS TCO2 53.6 mmol/L (22-28)
[2016-09-26] MEDS: acetaZOLAMIDE 500 mg SR Cap PO SCH (08:38)
[2016-09-26] MEDS: Enoxaparin 40 mg Syringe SC SCH (08:39)
[2016-09-26] MEDS: methylPREDNISolone 40 MG in Sodium Chloride 0.9% 50 ML IVPB SCH ×2 (08:40→20:02)
[2016-09-26] MEDS: Piperacillin/Tazobact 3.375 GM in Sodium Chloride 0.9% 100 ML IVPB SCH ×2 (08:41→20:01)
--- NOTE | 2016-09-26 08:58 | CP.PCM.PN ---
Subjective - Date & Time of Evaluation Date of Evaluation: 09/26/16 Time of Evaluation: 09:30 - Subjective Subjective: Patient seen and examined bedside.More awake and alert today. Tolerating BIPAP well. Still with dyspnea when placed on 3 L O2 via NC with coughing spells and clear sputum production. BP stable 140/66 HR 88 afebrile last 24 hours, saturating 92 % in 3 L O2 via NC Gram + cocciin urine WBC 10.9 Hgb 11.5 Objective - Vital Signs/Intake and Output Vital Signs (last 24 hours): Temp Pulse Resp BP Pulse Ox 98 F 88 32 H 140/66 92 L 09/26/16 08:00 09/26/16 08:00 09/26/16 08:00 09/26/16 08:00 09/26/16 08:00 Intake and Output: 09/26/16 09/26/16 06:59 18:59 Intake Total 176 Output Total 200 Balance -24 - Medications Medications: Current Medications Acetaminophen (Tylenol 325mg Tab) 650 mg PO Q6H PRN PRN Reason: Pain, Mild (1-3) Acetaminophen (Tylenol 325mg Tab) 650 mg PO Q6H PRN PRN Reason: Fever >100.4 F Acetazolamide (Diamox Sequels 500 Mg Sr Cap) 500 mg PO DAILY [facility] Last Admin: 09/26/16 08:38 Dose: 500 mg Albuterol/Ipratropium (Duoneb 3 Mg/0.5 Mg (3 Ml) Ud) 3 ml INH RQID [facility] Last Admin: 09/26/16 08:03 Dose: 3 ml Clotrimazole (Lotrimin 1% Cream) 1 applic TOP BID [facility] Last Admin: 09/26/16 08:39 Dose: 1 applic Enoxaparin Sodium (Lovenox) 40 mg SC DAILY [facility] PRN Reason: Protocol Last Admin: 09/26/16 08:39 Dose: 40 mg Folic Acid (Folic Acid) 2 mg PO BID [facility] Last Admin: 09/26/16 08:39 Dose: 2 mg Hydroxychloroquine Sulfate (Plaquenil) 400 mg PO DAILY [facility] Last Admin: 09/26/16 08:39 Dose: 400 mg Vancomycin HCl 1 gm/ Sodium (Chloride) 250 mls @ 166.667 mls/hr IVPB DAILY [facility] Last Admin: 09/26/16 08:40 Dose: 166.667 mls/hr Piperacillin Sod/Tazobactam (Sod 3.375 gm/ Sodium Chloride) 100 mls @ 100 mls/ hr IVPB Q12 [facility] Last Admin: 09/26/16 08:41 Dose: 100 mls/hr Methylprednisolone 40 mg/ (Sodium Chloride) 50 mls @ 100 mls/hr IVPB Q12 [facility] Last Admin: 09/26/16 08:40 Dose: 100 mls/hr Methotrexate (Methotrexate) 15 mg PO QWK [facility] PRN Reason: Protocol Ondansetron HCl (Zofran Inj) 4 mg IVP Q6H PRN PRN Reason: Nausea/Vomiting Pantoprazole Sodium (Protonix Inj) 40 mg IVP DAILY [facility] Last Admin: 09/26/16 08:40 Dose: 40 mg - Labs Labs: 09/26/16 04:20 09/26/16 04:20 PT 11.5 Seconds (9.8-13.1) 09/24/16 08:55 INR 1.0 (0.9-1.2) 09/24/16 08:55 APTT 30.2 Seconds (25.6-37.1) 09/24/16 08:55 - Constitutional Appears: Chronically Ill, Other (obese with dyspnea at rest ) - Head Exam Head Exam: ATRAUMATIC, NORMOCEPHALIC - Eye Exam Eye Exam: EOMI, Normal appearance, PERRL Pupil Exam: NORMAL ACCOMODATION - ENT Exam ENT Exam: Mucous Membranes Moist, Normal Exam - Neck Exam Neck Exam: Full ROM, Normal Inspection - Respiratory Exam Respiratory Exam: Accessory Muscle Use, Decreased Breath Sounds (bibasilar ), Prolonged Expiratory Phase, Respiratory Distress. absent: Rhonchi, Wheezes - Cardiovascular Exam Cardiovascular Exam: REGULAR RHYTHM, RRR, +S1, +S2. absent: JVD - GI/Abdominal Exam GI & Abdominal Exam: Soft, Normal Bowel Sounds. absent: Distended, Guarding, Tenderness, Rebound - Rectal Exam Rectal Exam: Deferred - Extremities Exam Extremities Exam: Pedal Edema Additional comments: upper extremity multiple echymosis bilateral LE edema 2 + and chronic venous stasis with erythema left foot toes cool to touch and with purple discoloration pulses present - Back Exam Back Exam: NORMAL INSPECTION - Neurological Exam Neurological Exam: Alert, Awake, CN II-XII Intact, Oriented x3 - Psychiatric Exam Psychiatric exam: Anxious - Skin Skin Exam: Dry, Warm Additional comments: upper extremity multiple echymosis areas bilateral lower extremity chronic venous stasis with erythem Assessment and Plan - Assessment and Plan (Free Text) Assessment: 66 year old female wth PMHx COPD, CHF, HTN, HLD, RA, Chronic LE Edema, MAT, 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 Hx of Chronic Resp Insuff on home Oxygen and Bipap presented to ER with SOB, lethargy and drowsiness. Patient is well known to our service from prior admissions. She is a chronic CO2 retainer with PCO2 baseline 80 . As per she was noticed to have respiratory wheezing by visiting nurse couple of days ago and her PMD increased her steroid dose with improvement. On day of admission , the noticed that she is very lethargic so decided to bring her to ER. VBG in ER showed PCO2 120 so she was placed on Bipap , given Duonebs and Solumedrol and pulmonary consulted. As per she has been following up at [facility] for her lung cancer and PET scan done recently showed metastasis At present in ICU, tolerating BIpap well, awake and alert , still with respiratory distress on O2 via NC . 1. Acute on Chronic Respiratory Failure with Hypoxia and Hypercapnea likely sec to COPD Exacerbation tolerating Bipap well, more awake and alert with ABG 92/84/40/7.3 Still with dyspnea on 3 L O2 via Nc. Will continue Bipap for bn now and o2 via NC while eating pulmonary consult with Dr. Yusuf appreciated cont Solumedrol IV, Duonebs, Zosyn, vanco tapered Solumderol to 40 mg IV Q12 CXR showed chronic intestitial changes with questionable RLL infiltrate started on Actazolamide 2.Metastatic squamous cell carcinoma of the lung Patient following up with [facility] recent PET scan showed metastatic disease 3. Altered mental status secondary to CO2 narcosis improved at present awake , alert and oriented Continue BIPAP and O2 via NC Started Acetazolamide 4. Suspected Bilateral pneumonia Started Zosyn, Vanco empirically follow up Sputum and blood cx 5. Hx of Multifocal Atrial Tachycardia and Episode of A Fib ASA 81 mg PO 1x/day Metoprolol 50 mg PO 1x/day She follows with Cardiology Dr. Cole as an outpatient and is currently not on anticoagulation 6. Chronic CHF (congestive heart failure), Diastolic Dysfunction/Pulm HTN Continue Metoprolol and Lasix 7. HTN (hypertension) resume metoprolol 8. Hyperlipidemia Atorvastatin 10 mg PO QHS 9. GERD (gastroesophageal reflux disease) Protonix 40 mg IV 10. 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 Peripheral Vascular Disease/Chronic Venous Insufficiency with chronic LE edema and venous stasis Lac-hydrin lotion to dry skin LE Continue ASA 12. UTI urine cx positive for gram positive cocci On vancomycin IV 13. Prophylactic measure Lovenox for DVT Prophylaxis Protonix for GI Prophylaxis
--- NOTE | 2016-09-26 10:35 | VASCULAR ---
PROCEDURE: Date of procedure: 09/24/2016 Procedure: 1. Placement of a right arm PICC with ultrasound and fluoroscopic guidance, CPT 95121 2. PICC tip confirmation with spot radiograph and is in the superior vena cava Medications: 1 percent lidocaine Total Fluoro time: 4.9 seconds Radiation: .49 MGy EBL: 2 cc HISTORY: Infection requiring long-term IV antibiotics TECHNIQUE: Following informed consent and procedure time-out, the patient was placed supine on the interventional table and the right arm prepped and draped in the usual sterile fashion. Ultrasound showed a patent and compressible right basilic vein. After the skin was anesthetized with lidocaine, the basilic vein was accessed with micro micropuncture technique using ultrasound guidance. A guidewire was then advanced under fluoroscopic guidance into the superior vena cava. An image documenting ultrasound guidance for vascular access was permanently saved. The length of the single-lumen 4 Maltese PICC was trimmed to 37 centimeters and advanced through a peel-away sheath. The PICC was position with tip of PICC confirm a spot radiograph the superior vena cava. The PICC was secured to the patient's skin. The PICC was flushed. A biopatch and sterile dressing was applied. IMPRESSION: Placement of a single-lumen 4 Maltese PICC trimmed to 37 centimeters via right basilic vein. The tip of the PICC is confirmed with spot radiograph and is in the superior vena cava.
[2016-09-26 10:45] LABS: LYMPHOCYTE 3 % (20-50); MONOCYTE 1 % (0-10); NEUTROPHIL 96 % (42-75); TOTAL CELLS COUNTED 100
[2016-09-26 10:46] LABS: PLATELET ESTIMATE NORMAL (NORMAL)
[2016-09-26 10:47] LABS: HYPOCHROMIC SLIGHT; OVALOCYTES SLIGHT
--- NOTE | 2016-09-26 13:59 | CP.CCUPN ---
CCU Subjective - Physician Review Subjective (Free Text): Awake when on BiPAP and appropriately responsive, then becomes distressed, anxious and tachypneic when placed off for a reprieve. Denies any CP, palpitations, diaphoresis, nor other discomfort. ROS: as above, no other pertinent negs or positives on 10+ system review. Other PMSFH: All recent nursing and physician documentation reviewed and no new information noted relevant to current problems. MAJOR IMPRESSIONS / PLAN: 1. Chronic Resp failure 2 Hypercapnia 2. Metabolic Encephalopathy 2 #1 3. Bacterial pneumonia / Tracheobronchitis 4. E. faecalis UTI 5. H/o Lung CA PLAN: 1. Ongoing BiPAP support as tolerated, with reprieves off BiPAP every 4 hours if she does well. Adjust BiPAP to maintain TV at or above 300-350ml. 2. Empiric Abx coverage noted with Zosyn / Vanco. E.f. sensitive to Vanco . 3. Diamox as per Pulm. 4. Repeat CXR in AM. Lasix prn. CCU Objective - Vital Signs / Intake & Output Vital Signs (Last 4 hours): Vital Signs Temp Pulse Resp BP Pulse Ox 09/26/16 12:00 98.1 F 95 H 30 H 123/56 L 98 09/26/16 10:00 87 27 H 126/88 96 Intake and Output (Last 8hrs): Intake & Output 09/25/16 09/26/16 09/26/16 22:59 06:59 14:59 Intake Total 678 16 950 Output Total 70 200 180 Balance 608 -184 770 Weight 192 lb 12.8 oz Intake: IV 178 16 Intake, Piggyback 150 450 Oral 350 500 Output: Urine 70 200 180 Urethral (Cary) 70 200 180 - Physical Exam Head: Positive for: Atraumatic, Normocephalic Pupils: Positive for: PERRL. Negative for: Sluggish, Non-Reactive Extroacular Muscles: Positive for: EOMI Conjunctiva: Positive for: Normal. Negative for: Injected, Icteric Mouth: Positive for: Moist Mucous Membranes Pharnyx: Positive for: Normal. Negative for: ERYTHEMA, EXUDATE Nose (Internal): Positive for: Normal Inspection Neck: Positive for: Normal Range of Motion Respiratory/Chest: Positive for: Decreased Breath Sounds, Rales, Tachypneic. Negative for: Respiratory Distress, Accessory Muscle Use, Wheezes, Rhonchi Cardiovascular: Positive for: Irregular Rhythm, Peripheal Pulses Present. Negative for: Murmurs, Tachycardic, Bradycardic Abdomen: Positive for: Normal Bowel Sounds. Negative for: Tenderness, Distention, Peritoneal Signs, Mass/Organomegaly Upper Extremity: Positive for: Normal Inspection, NORMAL PULSES, Capillary Refill < 2s. Negative for: Cyanosis, Edema Lower Extremity: Positive for: Edema, NORMAL PULSES, Other (Chronic Bilateral stasis, skin erythema). Negative for: Normal Inspection, CALF TENDERNESS Neurological: Positive for: GCS=15, CN II-XII Intact, Speech Normal, Motor Func Grossly Intact, Normal Sensory Function - Medications Active Medications: Active Medications Generic Name Dose Route Start Last Admin Trade Name Freq PRN Reason Stop Dose Admin Acetaminophen 650 mg 09/24/16 12:17 Tylenol 325mg Tab PO Q6H PRN Pain, Mild (1-3) Acetaminophen 650 mg 09/24/16 12:17 Tylenol 325mg Tab PO Q6H PRN Fever >100.4 F Acetazolamide 500 mg 09/25/16 09:00 09/26/16 08:38 Diamox Sequels 500 Mg Sr Cap PO 500 mg DAILY [facility] Administration Albuterol/Ipratropium 3 ml 09/24/16 12:00 09/26/16 11:29 Duoneb 3 Mg/0.5 Mg (3 Ml) Ud INH 3 ml RQID [facility] Administration Aspirin 81 mg 09/27/16 09:00 Aspirin Chewable PO DAILY [facility] Atorvastatin Calcium 10 mg 09/26/16 22:00 Lipitor PO HS [facility] Cholecalciferol 2,000 iu 09/27/16 09:00 Vitamin D PO DAILY [facility] Clotrimazole 1 applic 09/24/16 17:00 09/26/16 08:39 Lotrimin 1% Cream TOP 1 applic BID [facility] Administration Enoxaparin Sodium 40 mg 09/25/16 09:00 09/26/16 08:39 Lovenox SC 40 mg DAILY [facility] Administration Protocol Folic Acid 2 mg 09/24/16 17:00 09/26/16 08:39 Folic Acid PO 2 mg BID [facility] Administration Furosemide 40 mg 09/27/16 09:00 Lasix PO DAILY [facility] Gabapentin 100 mg 09/27/16 09:00 Neurontin PO DAILY [facility] Gabapentin 300 mg 09/26/16 22:00 Neurontin PO HS [facility] Hydroxychloroquine Sulfate 400 mg 09/27/16 09:00 Plaquenil PO DAILY [facility] Vancomycin HCl 1 gm/ Sodium 250 mls @ 166.667 mls/hr 09/25/16 09:00 09/26/16 08:40 Chloride IVPB 166.667 mls/hr DAILY [facility] Administration Piperacillin Sod/Tazobactam 100 mls @ 100 mls/hr 09/24/16 21:00 09/26/16 08: 41 Sod 3.375 gm/ Sodium Chloride IVPB 100 mls/hr Q12 [facility] Administration Methylprednisolone 40 mg/ 50 mls @ 100 mls/hr 09/25/16 09:00 09/26/16 08:40 Sodium Chloride IVPB 100 mls/hr Q12 [facility] Administration Methotrexate 15 mg 09/26/16 08:09 Methotrexate PO QWK [facility] Protocol Metoprolol Succinate 50 mg 09/27/16 09:00 Toprol Xl PO DAILY [facility] Multivitamins/Minerals 1 tab 09/27/16 09:00 Therapeutic-M Tab PO DAILY [facility] Ondansetron HCl 4 mg 09/24/16 12:17 Zofran Inj IVP Q6H PRN Nausea/Vomiting Pantoprazole Sodium 40 mg 09/27/16 09:00 Protonix Ec Tab PO DAILY [facility] - Patient Studies Lab Studies: Microbiology Studies 09/24/16 13:08 Urine Culture - Final Urine,Cary Enterococcus Faecalis 09/24/16 13:08 MRSA Culture (Admit) - Final Nose MRSA NOT DETECTED Lab Studies 09/26/16 09/26/16 09/26/16 Range/Units 11:24 08:14 04:38 WBC (4.8-10.8) K/uL RBC (3.80-5.20) Mil/uL Hgb (12.0-16.0) g/dL Hct (34.0-47.0) % MCV (81.0-99.0) fl MCH (27.0-31.0) pg MCHC (33.0-37.0) g/dL RDW (11.5-14.5) % Plt Count (130-400) K/uL MPV (7.2-11.7) fl Neut % (Auto) (50.0-75.0) % Lymph % (Auto) (20.0-40.0) % Marion % (Auto) (0.0-10.0) % Eos % (Auto) (0.0-4.0) % Baso % (Auto) (0.0-2.0) % Neut # (1.8-7.0) K/uL Lymph # (1.0-4.3) K/uL Marion # (0.0-0.8) K/uL Eos # (0.0-0.7) K/uL Baso # (0.0-0.2) K/uL Neutrophils % (Manual) (42-75) % Lymphocytes % (Manual) (20-50) % Monocytes % (Manual) (0-10) % Platelet Estimate (NORMAL) Hypochromasia (manual) Macrocytosis (manual) Ovalocytes pCO2 92 H* (35-45) mm/Hg pO2 84 (80-100) mm/Hg HCO3 40.9 H* (21-28) mmol/L ABG pH 7.35 (7.35-7.45) ABG Total CO2 53.6 H (22-28) mmol/L ABG O2 Saturation 98.2 H (95-98) % ABG O2 Content 16.3 (15-23) ML/dL ABG Base Excess 20.5 H (-2.0-3.0) mmol/L ABG Hemoglobin 12.2 (11.7-17.4) g/dL ABG Carboxyhemoglobin 2.0 H (0.5-1.5) % POC ABG HHb (Measured) 1.7 (0.0-5.0) % ABG Methemoglobin 1.6 (0.0-3.0) % ABG O2 Capacity 16.6 (16-24) mL/dL Jorge Luis Test Yes A-a O2 Difference 15.0 mm/Hg Hgb O2 Saturation 94.7 L (95.0-98.0) % FiO2 30.0 % Crit Value Called To Chapo riley Crit Value Called By Jada Crit Value Read Back Y Blood Gas Notified Time 815 Sodium (132-148) mmol/l Potassium (3.6-5.0) MMOL/L Chloride (98-107) mmol/L Carbon Dioxide (22-30) mmol/L Anion Gap (10-20) BUN (7-17) mg/dl Creatinine (0.7-1.2) mg/dL Est GFR ( Amer) Est GFR (Non-Af Amer) POC Glucose (mg/dL) 256 H 113 H (65-110) mg/dL Random Glucose (65-105) mg/dL Calcium (8.4-10.2) mg/dL 09/26/16 09/26/16 09/26/16 Range/Units 04:38 04:20 04:20 WBC 10.9 H (4.8-10.8) K/uL RBC 3.46 L (3.80-5.20) Mil/uL Hgb 11.5 L (12.0-16.0) g/dL Hct 36.5 (34.0-47.0) % MCV 105.4 H (81.0-99.0) fl MCH 33.1 H (27.0-31.0) pg MCHC 31.4 L (33.0-37.0) g/dL RDW 15.9 H (11.5-14.5) % Plt Count 163 (130-400) K/uL MPV 9.6 (7.2-11.7) fl Neut % (Auto) 97.1 H (50.0-75.0) % Lymph % (Auto) 1.1 L (20.0-40.0) % Marion % (Auto) 1.8 (0.0-10.0) % Eos % (Auto) 0.0 (0.0-4.0) % Baso % (Auto) 0.0 (0.0-2.0) % Neut # 10.6 H (1.8-7.0) K/uL Lymph # 0.1 L (1.0-4.3) K/uL Marion # 0.2 (0.0-0.8) K/uL Eos # 0.0 (0.0-0.7) K/uL Baso # 0.0 (0.0-0.2) K/uL Neutrophils % (Manual) 96 H (42-75) % Lymphocytes % (Manual) 3 L (20-50) % Monocytes % (Manual) 1 (0-10) % Platelet Estimate Normal (NORMAL) Hypochromasia (manual) Slight Macrocytosis (manual) Moderate Ovalocytes Slight pCO2 (35-45) mm/Hg pO2 (80-100) mm/Hg HCO3 (21-28) mmol/L ABG pH (7.35-7.45) ABG Total CO2 (22-28) mmol/L ABG O2 Saturation (95-98) % ABG O2 Content (15-23) ML/dL ABG Base Excess (-2.0-3.0) mmol/L ABG Hemoglobin (11.7-17.4) g/dL ABG Carboxyhemoglobin (0.5-1.5) % POC ABG HHb (Measured) (0.0-5.0) % ABG Methemoglobin (0.0-3.0) % ABG O2 Capacity (16-24) mL/dL Jorge Luis Test A-a O2 Difference mm/Hg Hgb O2 Saturation (95.0-98.0) % FiO2 % Crit Value Called To Crit Value Called By Crit Value Read Back Blood Gas Notified Time Sodium 143 (132-148) mmol/l Potassium 3.9 (3.6-5.0) MMOL/L Chloride 95 L (98-107) mmol/L Carbon Dioxide 44 H* (22-30) mmol/L Anion Gap 8 L (10-20) BUN 18 H (7-17) mg/dl Creatinine 0.9 (0.7-1.2) mg/dL Est GFR ( Amer) > 60 Est GFR (Non-Af Amer) > 60 POC Glucose (mg/dL) 113 H (65-110) mg/dL Random Glucose 130 H (65-105) mg/dL Calcium 9.8 (8.4-10.2) mg/dL 09/25/16 09/25/16 Range/Units 20:56 16:11 WBC (4.8-10.8) K/uL RBC (3.80-5.20) Mil/uL Hgb (12.0-16.0) g/dL Hct (34.0-47.0) % MCV (81.0-99.0) fl MCH (27.0-31.0) pg MCHC (33.0-37.0) g/dL RDW (11.5-14.5) % Plt Count (130-400) K/uL MPV (7.2-11.7) fl Neut % (Auto) (50.0-75.0) % Lymph % (Auto) (20.0-40.0) % Marion % (Auto) (0.0-10.0) % Eos % (Auto) (0.0-4.0) % Baso % (Auto) (0.0-2.0) % Neut # (1.8-7.0) K/uL Lymph # (1.0-4.3) K/uL Marion # (0.0-0.8) K/uL Eos # (0.0-0.7) K/uL Baso # (0.0-0.2) K/uL Neutrophils % (Manual) (42-75) % Lymphocytes % (Manual) (20-50) % Monocytes % (Manual) (0-10) % Platelet Estimate (NORMAL) Hypochromasia (manual) Macrocytosis (manual) Ovalocytes pCO2 (35-45) mm/Hg pO2 (80-100) mm/Hg HCO3 (21-28) mmol/L ABG pH (7.35-7.45) ABG Total CO2 (22-28) mmol/L ABG O2 Saturation (95-98) % ABG O2 Content (15-23) ML/dL ABG Base Excess (-2.0-3.0) mmol/L ABG Hemoglobin (11.7-17.4) g/dL ABG Carboxyhemoglobin (0.5-1.5) % POC ABG HHb (Measured) (0.0-5.0) % ABG Methemoglobin (0.0-3.0) % ABG O2 Capacity (16-24) mL/dL Jogre Luis Test A-a O2 Difference mm/Hg Hgb O2 Saturation (95.0-98.0) % FiO2 % Crit Value Called To Crit Value Called By Crit Value Read Back Blood Gas Notified Time Sodium (132-148) mmol/l Potassium (3.6-5.0) MMOL/L Chloride (98-107) mmol/L Carbon Dioxide (22-30) mmol/L Anion Gap (10-20) BUN (7-17) mg/dl Creatinine (0.7-1.2) mg/dL Est GFR ( Amer) Est GFR (Non-Af Amer) POC Glucose (mg/dL) 148 H 169 H (65-110) mg/dL Random Glucose (65-105) mg/dL Calcium (8.4-10.2) mg/dL Laboratory Results - last 24 hr 09/25/16 09/25/16 09/26/16 16:11 20:56 04:20 WBC 10.9 H RBC 3.46 L Hgb 11.5 L Hct 36.5 MCV 105.4 H MCH 33.1 H MCHC 31.4 L RDW 15.9 H Plt Count 163 MPV 9.6 Neut % (Auto) 97.1 H Lymph % (Auto) 1.1 L Marion % (Auto) 1.8 Eos % (Auto) 0.0 Baso % (Auto) 0.0 Neut # 10.6 H Lymph # 0.1 L Marion # 0.2 Eos # 0.0 Baso # 0.0 Neutrophils % (Manual) 96 H Lymphocytes % (Manual) 3 L Monocytes % (Manual) 1 Platelet Estimate Normal Hypochromasia (manual) Slight Macrocytosis (manual) Moderate Ovalocytes Slight pCO2 pO2 HCO3 ABG pH ABG Total CO2 ABG O2 Saturation ABG O2 Content ABG Base Excess ABG Hemoglobin ABG Carboxyhemoglobin POC ABG HHb (Measured) ABG Methemoglobin ABG O2 Capacity Jorge Luis Test A-a O2 Difference Hgb O2 Saturation FiO2 Crit Value Called To Crit Value Called By Crit Value Read Back Blood Gas Notified Time Sodium Potassium Chloride Carbon Dioxide Anion Gap BUN Creatinine Est GFR ( Amer) Est GFR (Non-Af Amer) POC Glucose (mg/dL) 169 H 148 H Random Glucose Calcium 09/26/16 09/26/16 09/26/16 04:20 04:38 04:38 WBC RBC Hgb Hct MCV MCH MCHC RDW Plt Count MPV Neut % (Auto) Lymph % (Auto) Marion % (Auto) Eos % (Auto) Baso % (Auto) Neut # Lymph # Marion # Eos # Baso # Neutrophils % (Manual) Lymphocytes % (Manual) Monocytes % (Manual) Platelet Estimate Hypochromasia (manual) Macrocytosis (manual) Ovalocytes pCO2 pO2 HCO3 ABG pH ABG Total CO2 ABG O2 Saturation ABG O2 Content ABG Base Excess ABG Hemoglobin ABG Carboxyhemoglobin POC ABG HHb (Measured) ABG Methemoglobin ABG O2 Capacity Jorge Luis Test A-a O2 Difference Hgb O2 Saturation FiO2 Crit Value Called To Crit Value Called By Crit Value Read Back Blood Gas Notified Time Sodium 143 Potassium 3.9 Chloride 95 L Carbon Dioxide 44 H* Anion Gap 8 L BUN 18 H Creatinine 0.9 Est GFR ( Amer) > 60 Est GFR (Non-Af Amer) > 60 POC Glucose (mg/dL) 113 H 113 H Random Glucose 130 H Calcium 9.8 09/26/16 09/26/16 08:14 11:24 WBC RBC Hgb Hct MCV MCH MCHC RDW Plt Count MPV Neut % (Auto) Lymph % (Auto) Marion % (Auto) Eos % (Auto) Baso % (Auto) Neut # Lymph # Marion # Eos # Baso # Neutrophils % (Manual) Lymphocytes % (Manual) Monocytes % (Manual) Platelet Estimate Hypochromasia (manual) Macrocytosis (manual) Ovalocytes pCO2 92 H* pO2 84 HCO3 40.9 H* ABG pH 7.35 ABG Total CO2 53.6 H ABG O2 Saturation 98.2 H ABG O2 Content 16.3 ABG Base Excess 20.5 H ABG Hemoglobin 12.2 ABG Carboxyhemoglobin 2.0 H POC ABG HHb (Measured) 1.7 ABG Methemoglobin 1.6 ABG O2 Capacity 16.6 Jorge Luis Test Yes A-a O2 Difference 15.0 Hgb O2 Saturation 94.7 L FiO2 30.0 Crit Value Called To Chapo riley Crit Value Called By 15 Crit Value Read Back Y Blood Gas Notified Time 815 Sodium Potassium Chloride Carbon Dioxide Anion Gap BUN Creatinine Est GFR ( Amer) Est GFR (Non-Af Amer) POC Glucose (mg/dL) 256 H Random Glucose Calcium Fingerstick Blood Sugar Results: 256 Critical Care Progress Note - Nutrition Nutrition: Nutrition Category Date Time Status Liquid Diet [DIET] Diets 09/26/16 Breakfast Active
[2016-09-27 05:08] LABS: ABG ALLEN TEST YES; ARTERIAL BLOOD GAS HCO3 41.1 mmol/L (21-28); ARTERIAL BLOOD GAS HEMOGLOBIN 11.8 g/dL (11.7-17.4); ARTERIAL BLOOD GAS O2 CAPACITY 16.1 mL/dL (16-24); ARTERIAL BLOOD GAS O2 SAT 99.1 % (95-98); ARTERIAL BLOOD GAS PCO2 103 mm/Hg (35-45); ARTERIAL BLOOD GAS PH 7.31 (7.35-7.45); ARTERIAL BLOOD GAS PO2 100 mm/Hg (80-100); ARTERIAL BLOOD GAS TCO2 55.1 mmol/L (22-28)
[2016-09-27 05:34] LABS: HEMOGLOBIN 12.1 g/dL (12.0-16.0); MEAN CELL VOLUME 106.8 fl (81.0-99.0); MEAN CORPUSCULAR HGB CONC 30.9 g/dL (33.0-37.0); RBC 3.68 Mil/uL (3.80-5.20); RED CELL DISTRIBUTION WIDTH 15.7 % (11.5-14.5)
[2016-09-27 05:45] LABS: BLOOD UREA NITROGEN 18 mg/dl (7-17); CALCIUM 10.1 mg/dL (8.4-10.2); GFR AFRICAN-AMERICAN > 60; GFR NON-AFRICAN AMERICAN > 60
[2016-09-27 06:26] LABS: ABG ALLEN TEST YES; ARTERIAL BLOOD GAS HCO3 40.4 mmol/L (21-28); ARTERIAL BLOOD GAS HEMOGLOBIN 11.8 g/dL (11.7-17.4); ARTERIAL BLOOD GAS O2 CAPACITY 16.1 mL/dL (16-24); ARTERIAL BLOOD GAS O2 CONTENT 15.9 ML/dL (15-23); ARTERIAL BLOOD GAS O2 SAT 98.8 % (95-98); ARTERIAL BLOOD GAS PCO2 101 mm/Hg (35-45); ARTERIAL BLOOD GAS PH 7.31 (7.35-7.45); ARTERIAL BLOOD GAS PO2 90 mm/Hg (80-100)
[2016-09-27] MEDS: Albuterol-Ipratrop 3 mg / 0.5 (3 ml) UD INH SCH ×4 (07:50→19:44)
[2016-09-27] MEDS: Pantoprazole 40 mg EC Tab PO SCH (08:33)
[2016-09-27] MEDS: Enoxaparin 40 mg Syringe SC SCH (08:33)
[2016-09-27] MEDS: methylPREDNISolone 40 MG in Sodium Chloride 0.9% 50 ML IVPB SCH ×2 (08:33→21:26)
[2016-09-27] MEDS: Metoprolol Succinate 50 mg XL Tab PO SCH (08:34)
[2016-09-27] MEDS: Multivitamin With Minerals Tab PO SCH (08:34)
--- NOTE | 2016-09-27 08:49 | CP.PCM.PN ---
Subjective - Date & Time of Evaluation Date of Evaluation: 09/27/16 Time of Evaluation: 08:50 - Subjective Subjective: Patient seen and evaluated bedside. Chronically ill female sitting in bed in NAD. with very weak voice and weak cough reflex. With episode of dyspnea overnight while on BIPAP with nasal mask , with episodes of de saturation and ABG showing PCO2 101 PO2 90 Changed and placed on facial mask with improvement and at present awake alert and oriented tolerating 3 l O2 via Nc while feeding WBC 11 Hgb 12 BP 120/63 HR 90, afebrile urine cx positive foe Enterococcus daecalis Objective - Vital Signs/Intake and Output Vital Signs (last 24 hours): Temp Pulse Resp BP Pulse Ox 98.7 F 90 14 120/69 98 09/27/16 08:00 09/27/16 08:34 09/27/16 08:00 09/27/16 08:36 09/27/16 08:00 Intake and Output: 09/27/16 09/27/16 06:59 18:59 Intake Total 207 Output Total 350 Balance -143 - Medications Medications: Current Medications Acetaminophen (Tylenol 325mg Tab) 650 mg PO Q6H PRN PRN Reason: Pain, Mild (1-3) Acetaminophen (Tylenol 325mg Tab) 650 mg PO Q6H PRN PRN Reason: Fever >100.4 F Acetazolamide (Diamox Sequels 500 Mg Sr Cap) 500 mg PO DAILY [facility] Last Admin: 09/26/16 08:38 Dose: 500 mg Albuterol/Ipratropium (Duoneb 3 Mg/0.5 Mg (3 Ml) Ud) 3 ml INH RQID [facility] Last Admin: 09/27/16 07:50 Dose: 3 ml Aspirin (Aspirin Chewable) 81 mg PO DAILY [facility] Last Admin: 09/27/16 08:30 Dose: 81 mg Atorvastatin Calcium (Lipitor) 10 mg PO HS [facility] Last Admin: 09/26/16 22:35 Dose: 10 mg Cholecalciferol (Vitamin D) 2,000 iu PO DAILY [facility] Last Admin: 09/27/16 08:34 Dose: 2,000 iu Clotrimazole (Lotrimin 1% Cream) 1 applic TOP BID [facility] Last Admin: 09/27/16 08:32 Dose: 1 applic Enoxaparin Sodium (Lovenox) 40 mg SC DAILY [facility] PRN Reason: Protocol Last Admin: 09/27/16 08:33 Dose: 40 mg Folic Acid (Folic Acid) 2 mg PO BID [facility] Last Admin: 09/26/16 16:34 Dose: 2 mg Furosemide (Lasix) 40 mg PO DAILY [facility] Last Admin: 09/27/16 08:36 Dose: 40 mg Gabapentin (Neurontin) 100 mg PO DAILY [facility] Last Admin: 09/27/16 08:33 Dose: 100 mg Gabapentin (Neurontin) 300 mg PO HS [facility] Last Admin: 09/26/16 22:35 Dose: 300 mg Hydroxychloroquine Sulfate (Plaquenil) 400 mg PO DAILY [facility] Last Admin: 09/27/16 08:33 Dose: 400 mg Vancomycin HCl 1 gm/ Sodium (Chloride) 250 mls @ 166.667 mls/hr IVPB DAILY [facility] Last Admin: 09/26/16 08:40 Dose: 166.667 mls/hr Piperacillin Sod/Tazobactam (Sod 3.375 gm/ Sodium Chloride) 100 mls @ 100 mls/ hr IVPB Q12 [facility] Last Admin: 09/26/16 20:01 Dose: 100 mls/hr Methylprednisolone 40 mg/ (Sodium Chloride) 50 mls @ 100 mls/hr IVPB Q12 [facility] Last Admin: 09/27/16 08:33 Dose: 100 mls/hr Methotrexate (Methotrexate) 15 mg PO QWK [facility] PRN Reason: Protocol Metoprolol Succinate (Toprol Xl) 50 mg PO DAILY [facility] Last Admin: 09/27/16 08:34 Dose: 50 mg Multivitamins/Minerals (Therapeutic-M Tab) 1 tab PO DAILY [facility] Last Admin: 09/27/16 08:34 Dose: 1 tab Ondansetron HCl (Zofran Inj) 4 mg IVP Q6H PRN PRN Reason: Nausea/Vomiting Pantoprazole Sodium (Protonix Ec Tab) 40 mg PO DAILY [facility] Last Admin: 09/27/16 08:33 Dose: 40 mg - Labs Labs: 09/27/16 05:05 09/27/16 05:05 PT 11.5 Seconds (9.8-13.1) 09/24/16 08:55 INR 1.0 (0.9-1.2) 09/24/16 08:55 APTT 30.2 Seconds (25.6-37.1) 09/24/16 08:55 - Constitutional Appears: Chronically Ill, Other (with respiratory distress) - Head Exam Head Exam: ATRAUMATIC, NORMAL INSPECTION, NORMOCEPHALIC - Eye Exam Eye Exam: EOMI, PERRL Pupil Exam: NORMAL ACCOMODATION - ENT Exam ENT Exam: Mucous Membranes Moist, Normal Exam - Neck Exam Neck Exam: Normal Inspection - Respiratory Exam Respiratory Exam: Accessory Muscle Use, Prolonged Expiratory Phase, Respiratory Distress Additional comments: left hemithorax inspiratory wheezing - Cardiovascular Exam Cardiovascular Exam: REGULAR RHYTHM, +S1, +S2. absent: JVD - GI/Abdominal Exam GI & Abdominal Exam: Soft, Normal Bowel Sounds. 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 Hx of Chronic Resp Insuff on home Oxygen and Bipap presented to ER with SOB, lethargy and drowsiness. Patient is well known to our service from prior admissions. She is a chronic CO2 retainer with PCO2 baseline 80 . As per she was noticed to have respiratory wheezing by visiting nurse couple of days ago and her PMD increased her steroid dose with improvement. On day of admission , the noticed that she is very lethargic so decided to bring her to ER. VBG in ER showed PCO2 120 so she was placed on Bipap , given Duonebs and Solumedrol and pulmonary consulted. As per she has been following up at [facility] for her lung cancer and PET scan done recently showed metastasis At present in ICU, tolerating BIpap but with episode of severe dyspnea and PCO2 levels of 101 overnight while on Bipap with nasal mask .Improved once placed on facial mask with BIPAP Awake and alert 1. Acute on Chronic Respiratory Failure with Hypoxia and Hypercapnea likely sec to COPD Exacerbation tolerating Bipap well, more awake and alert . Could not tolerate nasal mask with BIPAP overnight Still with dyspnea on 3 L O2 via Nc. Will continue Bipap for now and o2 via NC while eating pulmonary consult with Dr. Yusuf appreciated cont Solumedrol IV, Duonebs, Zosyn, vanco tapered Solumderol to 40 mg IV Q12 CXR showed chronic intestitial changes with questionable RLL infiltrate started on Actazolamide 2.Metastatic squamous cell carcinoma of the lung Patient following up with [facility] recent PET scan showed metastatic disease 3. Altered mental status secondary to CO2 narcosis improved at present awake , alert and oriented Continue BIPAP and O2 via NC Started Acetazolamide 4. Suspected Bilateral pneumonia Started Zosyn, Vanco empirically follow up Sputum and blood cx 5. Hx of Multifocal Atrial Tachycardia and Episode of A Fib ASA 81 mg PO 1x/day Metoprolol 50 mg PO 1x/day She follows with Cardiology Dr. Cole as an outpatient and is currently not on anticoagulation 6. Chronic CHF (congestive heart failure), Diastolic Dysfunction/Pulm HTN Continue Metoprolol and Lasix 7. HTN (hypertension) resumed metoprolol 8. Hyperlipidemia Atorvastatin 10 mg PO QHS 9. GERD (gastroesophageal reflux disease) Protonix 40 mg 10. 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 Peripheral Vascular Disease/Chronic Venous Insufficiency with chronic LE edema and venous stasis With purple discoloration of her toes bilaterally and cool to touch Lac-hydrin lotion to dry skin LE Continue ASA 12. UTI urine cx positive for Eneteroccocus faecalis On vancomycin IV 13. Prophylactic measure Lovenox for DVT Prophylaxis Protonix for GI Prophylaxis
[2016-09-27] MEDS ORDERED: acetaZOLAMIDE 500 mg SR Cap PO SCH (09:00)
[2016-09-27] MEDS: Piperacillin/Tazobact 3.375 GM in Sodium Chloride 0.9% 100 ML IVPB SCH ×2 (09:57→21:26)
--- NOTE | 2016-09-27 10:14 | RAD ---
HISTORY: routine COMPARISON: 09/24/2016 FINDINGS: LUNGS: No infiltrate. Left apical mass is again evident. Left apical pleural thickening and soft tissue density. Consistent with findings on CT examination of 08/22/2016. PLEURA: No pleural effusion evident. No pneumothorax. CARDIOVASCULAR: Normal. OSSEOUS STRUCTURES: No significant abnormalities. VISUALIZED UPPER ABDOMEN: Normal. OTHER FINDINGS: None. IMPRESSION: Left apical mass. No acute infiltrate.
--- NOTE | 2016-09-27 10:53 | CP.PCM.PN ---
Subjective - Date & Time of Evaluation Date of Evaluation: 09/27/16 Time of Evaluation: 10:50 - Subjective Subjective: Discussed with hospitalist and director of sustainability programs. Interim entries in EMR reviewed. Failed with trial using nasal pillows and placed back on face mask overnjight. Awake and oriented at the present time. Mask is off and nasal canula is on presently. Good oxygenation noted. Breath sounds are very much diminished bilaterally. Scattered sonorous and sibilant rhonchi are heard bilaterally. Dry to medium dependant rales posteriorly. Heart rate controlled, rhythm is a fib. Dependant edema gradually decreasing. Will increase acetazolamide to 500MG Q12H. Continue BiPAP NIPPV 16/09/17 @ 50% for now. Consider transfer out of ICU. All other meds remain the same. Objective - Vital Signs/Intake and Output Vital Signs (last 24 hours): Temp Pulse Resp BP Pulse Ox 98.7 F 64 14 120/69 98 09/27/16 08:00 09/27/16 08:34 09/27/16 08:00 09/27/16 08:36 09/27/16 08:00 Intake and Output: 09/26/16 09/27/16 23:59 11:59 Intake Total 1035 122 Output Total 150 350 Balance 885 -228 - Medications Medications: Current Medications Acetaminophen (Tylenol 325mg Tab) 650 mg PO Q6H PRN PRN Reason: Pain, Mild (1-3) Acetaminophen (Tylenol 325mg Tab) 650 mg PO Q6H PRN PRN Reason: Fever >100.4 F Acetazolamide (Diamox Sequels 500 Mg Sr Cap) 500 mg PO Q12H [facility] Albuterol/Ipratropium (Duoneb 3 Mg/0.5 Mg (3 Ml) Ud) 3 ml INH RQID [facility] Last Admin: 09/27/16 07:50 Dose: 3 ml Aspirin (Aspirin Chewable) 81 mg PO DAILY [facility] Last Admin: 09/27/16 08:30 Dose: 81 mg Atorvastatin Calcium (Lipitor) 10 mg PO HS [facility] Last Admin: 09/26/16 22:35 Dose: 10 mg Cholecalciferol (Vitamin D) 2,000 iu PO DAILY [facility] Last Admin: 09/27/16 08:34 Dose: 2,000 iu Clotrimazole (Lotrimin 1% Cream) 1 applic TOP BID [facility] Last Admin: 09/27/16 08:32 Dose: 1 applic Enoxaparin Sodium (Lovenox) 40 mg SC DAILY [facility] PRN Reason: Protocol Last Admin: 09/27/16 08:33 Dose: 40 mg Folic Acid (Folic Acid) 2 mg PO BID [facility] Last Admin: 09/26/16 16:34 Dose: 2 mg Furosemide (Lasix) 40 mg PO DAILY [facility] Last Admin: 09/27/16 08:36 Dose: 40 mg Gabapentin (Neurontin) 100 mg PO DAILY [facility] Last Admin: 09/27/16 08:33 Dose: 100 mg Gabapentin (Neurontin) 300 mg PO HS [facility] Last Admin: 09/26/16 22:35 Dose: 300 mg Hydroxychloroquine Sulfate (Plaquenil) 400 mg PO DAILY [facility] Last Admin: 09/27/16 08:33 Dose: 400 mg Vancomycin HCl 1 gm/ Sodium (Chloride) 250 mls @ 166.667 mls/hr IVPB DAILY [facility] Last Admin: 09/26/16 08:40 Dose: 166.667 mls/hr Piperacillin Sod/Tazobactam (Sod 3.375 gm/ Sodium Chloride) 100 mls @ 100 mls/ hr IVPB Q12 [facility] Last Admin: 09/27/16 09:57 Dose: 100 mls/hr Methylprednisolone 40 mg/ (Sodium Chloride) 50 mls @ 100 mls/hr IVPB Q12 [facility] Last Admin: 09/27/16 08:33 Dose: 100 mls/hr Methotrexate (Methotrexate) 15 mg PO QWK [facility] PRN Reason: Protocol Metoprolol Succinate (Toprol Xl) 50 mg PO DAILY [facility] Last Admin: 09/27/16 08:34 Dose: 50 mg Multivitamins/Minerals (Therapeutic-M Tab) 1 tab PO DAILY [facility] Last Admin: 09/27/16 08:34 Dose: 1 tab Ondansetron HCl (Zofran Inj) 4 mg IVP Q6H PRN PRN Reason: Nausea/Vomiting Pantoprazole Sodium (Protonix Ec Tab) 40 mg PO DAILY [facility] Last Admin: 09/27/16 08:33 Dose: 40 mg - Labs Labs: 09/27/16 05:05 09/27/16 05:05 PT 11.5 Seconds (9.8-13.1) 09/24/16 08:55 INR 1.0 (0.9-1.2) 09/24/16 08:55 APTT 30.2 Seconds (25.6-37.1) 09/24/16 08:55 Assessment and Plan (1) Acute on chronic respiratory failure with hypoxia and hypercapnia Status: Acute (2) CO2 narcosis Status: Acute (3) Bronchogenic carcinoma of left lung Status: Acute
[2016-09-27] MEDS: acetaZOLAMIDE 500 mg SR Cap PO SCH ×3 (11:25→21:55)
[2016-09-28 05:23] LABS: HEMOGLOBIN 11.7 g/dL (12.0-16.0); MEAN CELL VOLUME 108.4 fl (81.0-99.0); MEAN CORPUSCULAR HEMOGLOBIN 32.7 pg (27.0-31.0); MEAN CORPUSCULAR HGB CONC 30.2 g/dL (33.0-37.0); RBC 3.57 Mil/uL (3.80-5.20); RED CELL DISTRIBUTION WIDTH 16.6 % (11.5-14.5)
[2016-09-28 05:29] LABS: BLOOD UREA NITROGEN 17 mg/dl (7-17); CALCIUM 9.4 mg/dL (8.4-10.2); GFR AFRICAN-AMERICAN > 60; GFR NON-AFRICAN AMERICAN > 60
[2016-09-28] MEDS: Albuterol-Ipratrop 3 mg / 0.5 (3 ml) UD INH SCH ×4 (07:47→19:06)
[2016-09-28] MEDS ORDERED: Albuterol 0.083% Inhal Sol (2.5 mg/3 mL) UD INH ONE (08:05)
--- NOTE | 2016-09-28 08:22 | CP.PCM.PN ---
Subjective - Date & Time of Evaluation Date of Evaluation: 09/28/16 Time of Evaluation: 08:20 - Subjective Subjective: Patient seen and examined bedside. Chronically ill female , obese, lying in bed in mild respiratory distress while on 3 L O2 via NC with very weak voice, and prolonged expiratory phase with pursed lip breathing. BP stable 144/63 HR 63 afebrile, no acute issues overnight Tolerating BIPAP WBC 8 Hgb 11.7 HCO3 46 I/O 1890/1400 Objective - Vital Signs/Intake and Output Vital Signs (last 24 hours): Temp Pulse Resp BP Pulse Ox 98.1 F 63 22 144/63 98 09/28/16 07:51 09/28/16 07:51 09/28/16 07:51 09/28/16 07:51 09/28/16 07:51 Intake and Output: 09/28/16 09/28/16 06:59 18:59 Intake Total 450 4 Output Total 400 Balance 50 4 - Medications Medications: Current Medications Acetaminophen (Tylenol 325mg Tab) 650 mg PO Q6H PRN PRN Reason: Pain, Mild (1-3) Acetaminophen (Tylenol 325mg Tab) 650 mg PO Q6H PRN PRN Reason: Fever >100.4 F Acetazolamide (Diamox Sequels 500 Mg Sr Cap) 500 mg PO Q12H [facility] Last Admin: 09/27/16 21:55 Dose: 500 mg Albuterol Sulfate (Albuterol 0.083% Inhal Janice (2.5 Mg/3 Ml) Ud) 15 mg INH ONCE ONE Stop: 09/28/16 08:06 Albuterol/Ipratropium (Duoneb 3 Mg/0.5 Mg (3 Ml) Ud) 3 ml INH RQID [facility] Last Admin: 09/28/16 07:47 Dose: 3 ml Aspirin (Aspirin Chewable) 81 mg PO DAILY [facility] Last Admin: 09/27/16 08:30 Dose: 81 mg Atorvastatin Calcium (Lipitor) 10 mg PO HS [facility] Last Admin: 09/27/16 21:25 Dose: 10 mg Cholecalciferol (Vitamin D) 2,000 iu PO DAILY [facility] Last Admin: 09/27/16 08:34 Dose: 2,000 iu Clotrimazole (Lotrimin 1% Cream) 1 applic TOP BID [facility] Last Admin: 09/27/16 18:21 Dose: 1 applic Enoxaparin Sodium (Lovenox) 40 mg SC DAILY [facility] PRN Reason: Protocol Last Admin: 09/27/16 08:33 Dose: 40 mg Folic Acid (Folic Acid) 2 mg PO BID [facility] Last Admin: 09/27/16 18:21 Dose: 2 mg Furosemide (Lasix) 40 mg PO DAILY [facility] Last Admin: 09/27/16 08:36 Dose: 40 mg Gabapentin (Neurontin) 100 mg PO DAILY [facility] Last Admin: 09/27/16 08:33 Dose: 100 mg Gabapentin (Neurontin) 300 mg PO HS [facility] Last Admin: 09/27/16 21:25 Dose: 300 mg Hydroxychloroquine Sulfate (Plaquenil) 400 mg PO DAILY [facility] Last Admin: 09/27/16 08:33 Dose: 400 mg Vancomycin HCl 1 gm/ Sodium (Chloride) 250 mls @ 166.667 mls/hr IVPB DAILY [facility] Last Admin: 09/27/16 10:00 Dose: 166.667 mls/hr Piperacillin Sod/Tazobactam (Sod 3.375 gm/ Sodium Chloride) 100 mls @ 100 mls/ hr IVPB Q12 [facility] Last Admin: 09/27/16 21:26 Dose: 100 mls/hr Methylprednisolone 40 mg/ (Sodium Chloride) 50 mls @ 100 mls/hr IVPB Q12 [facility] Last Admin: 09/27/16 21:26 Dose: 100 mls/hr Methotrexate (Methotrexate) 15 mg PO QWK [facility] PRN Reason: Protocol Metoprolol Succinate (Toprol Xl) 50 mg PO DAILY [facility] Last Admin: 09/27/16 08:34 Dose: 50 mg Multivitamins/Minerals (Therapeutic-M Tab) 1 tab PO DAILY [facility] Last Admin: 09/27/16 08:34 Dose: 1 tab Ondansetron HCl (Zofran Inj) 4 mg IVP Q6H PRN PRN Reason: Nausea/Vomiting Pantoprazole Sodium (Protonix Ec Tab) 40 mg PO DAILY [facility] Last Admin: 09/27/16 08:33 Dose: 40 mg - Labs Labs: 09/28/16 04:20 09/28/16 04:20 PT 11.5 Seconds (9.8-13.1) 09/24/16 08:55 INR 1.0 (0.9-1.2) 09/24/16 08:55 APTT 30.2 Seconds (25.6-37.1) 09/24/16 08:55 - Constitutional Appears: Chronically Ill, Other (obnese , mild respiratory distress ) - Head Exam Head Exam: ATRAUMATIC, NORMOCEPHALIC - Eye Exam Eye Exam: EOMI, Normal appearance, PERRL Pupil Exam: NORMAL ACCOMODATION - ENT Exam ENT Exam: Mucous Membranes Dry, Normal Exam Additional comments: dry , cracked lips - Neck Exam Neck Exam: Full ROM, Normal Inspection - Respiratory Exam Respiratory Exam: Accessory Muscle Use, Decreased Breath Sounds (bibasilar), Prolonged Expiratory Phase, Rhonchi (scattered bilaterally ), Respiratory Distress. absent: Wheezes - Cardiovascular Exam Cardiovascular Exam: REGULAR RHYTHM, RRR, +S1, +S2. absent: JVD - GI/Abdominal Exam GI & Abdominal Exam: Soft, Normal Bowel Sounds. absent: Distended, Guarding, Tenderness, Rebound - Rectal Exam Rectal Exam: Deferred - Extremities Exam Extremities Exam: Pedal Edema (1+) Additional comments: bilateral upper extremity multiple echymosis bilateral lower extremity cool to touch with purplish discolaration chronic venous stasis to lower extremities - Neurological Exam Neurological Exam: Alert, Awake, CN II-XII Intact, Oriented x3 - Psychiatric Exam Psychiatric exam: Normal Affect - Skin Skin Exam: Dry, Pallor, Warm Assessment and Plan - Assessment and Plan (Free Text) Assessment: 66 year old female wth PMHx COPD, CHF, HTN, HLD, RA, Chronic LE Edema, MAT, 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 Hx of Chronic Resp Insuff on home Oxygen and Bipap presented to ER with SOB, lethargy and drowsiness. Patient is well known to our service from prior admissions. She is a chronic CO2 retainer with PCO2 baseline 80 . As per she was noticed to have respiratory wheezing by visiting nurse couple of days ago and her PMD increased her steroid dose with improvement. On day of admission , the noticed that she is very lethargic so decided to bring her to ER. VBG in ER showed PCO2 120 so she was placed on Bipap , given Duonebs and Solumedrol and pulmonary consulted. As per she has been following up at [facility] for her lung cancer and PET scan done recently showed metastasis At present in ICU, tolerating BIpap overnight and at present on 3 l O2 via NC, awake and alert with dyspnea at rest . 1. Acute on Chronic Respiratory Failure with Hypoxia and Hypercapnea likely sec to COPD Exacerbation tolerating Bipap well overnight and at present on 3 L O2 via NC , awake and alert . continue Bipap for now and O2 via NC while eating Start ambulation out of bed to chair pulmonary consult with Dr. Yusuf appreciated cont Solumedrol IV, Duonebs, Zosyn, vanco tapered Solumderol to 30 mg IV daily CXR showed chronic intestitial changes with questionable RLL infiltrate HCO3 46. On acetazolamide 250 mg Po BID 2.Metastatic squamous cell carcinoma of the lung Patient following up with [facility] recent PET scan showed metastatic disease 3. Altered mental status secondary to CO2 narcosis improved at present awake , alert and oriented Continue BIPAP and O2 via NC on Acetazolamide 4. Suspected Bilateral pneumonia on Zosyn and Vanco empirically 5. Hx of Multifocal Atrial Tachycardia and Episode of A Fib ASA 81 mg PO 1x/day Metoprolol 50 mg PO 1x/day She follows with Cardiology Dr. Cole as an outpatient and is currently not on anticoagulation 6. Chronic CHF (congestive heart failure), Diastolic Dysfunction/Pulm HTN Continue Metoprolol and Lasix 7. HTN (hypertension) on metoprolol 8. Hyperlipidemia Atorvastatin 10 mg PO QHS 9. GERD (gastroesophageal reflux disease) Protonix 40 mg 10. 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 Peripheral Vascular Disease/Chronic Venous Insufficiency with chronic LE edema and venous stasis With purple discoloration of her toes bilaterally and cool to touch Lac-hydrin lotion to dry skin LE Continue ASA 12. UTI urine cx positive for Eneteroccocus faecalis On vancomycin IV #5 13. Prophylactic measure Lovenox for DVT Prophylaxis Protonix for GI Prophylaxis
[2016-09-28] MEDS: Enoxaparin 40 mg Syringe SC SCH (08:44)
[2016-09-28] MEDS: Pantoprazole 40 mg EC Tab PO SCH (08:46)
[2016-09-28] MEDS: methylPREDNISolone 40 MG in Sodium Chloride 0.9% 50 ML IVPB SCH (08:47)
[2016-09-28] MEDS: Metoprolol Succinate 50 mg XL Tab PO SCH (08:47)
[2016-09-28] MEDS: Multivitamin With Minerals Tab PO SCH (08:47)
[2016-09-28] MEDS: Piperacillin/Tazobact 3.375 GM in Sodium Chloride 0.9% 100 ML IVPB SCH ×2 (08:48→20:20)
[2016-09-28] MEDS ORDERED: methylPREDNISolone 30 MG in Sodium Chloride 0.9% 50 ML IVPB SCH (09:00)
--- NOTE | 2016-09-28 10:08 | CP.PCM.PN ---
Subjective - Date & Time of Evaluation Date of Evaluation: 09/28/16 Time of Evaluation: 09:56 - Subjective Subjective: OOB in bedside chair this morning. Interim entries in EMR reviewed. Case discussed with hospitalist and election clerk. AM labs reviewed, no CXR today. Awake, cooperative, follows all commands. Voice is still very low. Pharynx shows whitish exudate on soft palate. Neck is supple, trachea is midline. Ecchymosis at needle biopsy site on the left posterior chest wall. No dullness to percussion anteriorly. No subcut emphysema. Breath sounds present bilaterally with scattered sonorous and sibilant rhonchi in upper lobes. Dry crepitations heard posteriorly in bases. No bronchial breath sounds. Heart rhythm remains a fib with rate controlled. Gradual increase in IPAP and keep FiO2 low (SpO2 should stay between 88-94%). Will ask oncology for input (still awaiting and info on gene expression from [place]). Physical therapy to begin activity as tolerated. Sputum collected this morning and sent to lab for culture. Objective - Vital Signs/Intake and Output Vital Signs (last 24 hours): Temp Pulse Resp BP Pulse Ox 98.1 F 70 22 190/96 H 98 09/28/16 07:51 09/28/16 08:47 09/28/16 07:51 09/28/16 08:44 09/28/16 07:51 Intake and Output: 09/27/16 09/28/16 23:59 11:59 Intake Total 1140 54 Output Total 1000 400 Balance 140 -346 - Medications Medications: Current Medications Acetaminophen (Tylenol 325mg Tab) 650 mg PO Q6H PRN PRN Reason: Pain, Mild (1-3) Acetaminophen (Tylenol 325mg Tab) 650 mg PO Q6H PRN PRN Reason: Fever >100.4 F Acetazolamide (Diamox Sequels 500 Mg Sr Cap) 500 mg PO Q12H [facility] Albuterol/Ipratropium (Duoneb 3 Mg/0.5 Mg (3 Ml) Ud) 3 ml INH RQID [facility] Last Admin: 09/28/16 07:47 Dose: 3 ml Aspirin (Aspirin Chewable) 81 mg PO DAILY [facility] Last Admin: 09/28/16 08:43 Dose: 81 mg Atorvastatin Calcium (Lipitor) 10 mg PO HS [facility] Last Admin: 09/27/16 21:25 Dose: 10 mg Cholecalciferol (Vitamin D) 2,000 iu PO DAILY [facility] Last Admin: 09/28/16 08:48 Dose: 2,000 iu Clotrimazole (Lotrimin 1% Cream) 1 applic TOP BID [facility] Last Admin: 09/28/16 08:44 Dose: 1 applic Enoxaparin Sodium (Lovenox) 40 mg SC DAILY [facility] PRN Reason: Protocol Last Admin: 09/28/16 08:44 Dose: 40 mg Folic Acid (Folic Acid) 2 mg PO BID [facility] Last Admin: 09/28/16 08:45 Dose: 2 mg Furosemide (Lasix) 40 mg PO DAILY [facility] Last Admin: 09/28/16 08:44 Dose: 40 mg Gabapentin (Neurontin) 100 mg PO DAILY [facility] Last Admin: 09/28/16 08:45 Dose: 100 mg Gabapentin (Neurontin) 300 mg PO HS [facility] Last Admin: 09/27/16 21:25 Dose: 300 mg Hydroxychloroquine Sulfate (Plaquenil) 400 mg PO DAILY [facility] Last Admin: 09/28/16 08:49 Dose: 400 mg Vancomycin HCl 1 gm/ Sodium (Chloride) 250 mls @ 166.667 mls/hr IVPB DAILY [facility] Last Admin: 09/28/16 08:47 Dose: 166.667 mls/hr Piperacillin Sod/Tazobactam (Sod 3.375 gm/ Sodium Chloride) 100 mls @ 100 mls/ hr IVPB Q12 [facility] Last Admin: 09/28/16 08:48 Dose: 100 mls/hr Methylprednisolone 30 mg/ (Sodium Chloride) 50 mls @ 100 mls/hr IVPB Q12 [facility] Methotrexate (Methotrexate) 15 mg PO QWK [facility] PRN Reason: Protocol Metoprolol Succinate (Toprol Xl) 50 mg PO DAILY [facility] Last Admin: 09/28/16 08:47 Dose: 50 mg Multivitamins/Minerals (Therapeutic-M Tab) 1 tab PO DAILY [facility] Last Admin: 09/28/16 08:47 Dose: 1 tab Nystatin (Nystatin Oral Susp) 5 ml PO QID [facility] Ondansetron HCl (Zofran Inj) 4 mg IVP Q6H PRN PRN Reason: Nausea/Vomiting Pantoprazole Sodium (Protonix Ec Tab) 40 mg PO DAILY [facility] Last Admin: 09/28/16 08:46 Dose: 40 mg - Labs Labs: 09/28/16 04:20 09/28/16 04:20 PT 11.5 Seconds (9.8-13.1) 09/24/16 08:55 INR 1.0 (0.9-1.2) 09/24/16 08:55 APTT 30.2 Seconds (25.6-37.1) 09/24/16 08:55 Assessment and Plan (1) Acute on chronic respiratory failure with hypoxia and hypercapnia Status: Acute (2) CO2 narcosis Status: Acute (3) Bronchogenic carcinoma of left lung Status: Acute
[2016-09-28] MEDS: acetaZOLAMIDE 500 mg SR Cap PO SCH ×3 (12:08→21:02)
[2016-09-28] MEDS: Nystatin 100,000 Units/ml Oral Susp 5 ml UD PO SCH ×3 (12:08→21:03)
[2016-09-28] MEDS: Vitamin A/D oint 60G TP SCH (16:16)
[2016-09-28] MEDS: methylPREDNISolone 30 MG in Sodium Chloride 0.9% 50 ML IVPB SCH (20:19)
[2016-09-29 05:26] LABS: ABG ALLEN TEST YES; ARTERIAL BLOOD GAS HCO3 43.5 mmol/L (21-28); ARTERIAL BLOOD GAS HEMOGLOBIN 11.9 g/dL (11.7-17.4); ARTERIAL BLOOD GAS O2 CAPACITY 16.1 mL/dL (16-24); ARTERIAL BLOOD GAS O2 CONTENT 15.5 ML/dL (15-23); ARTERIAL BLOOD GAS PCO2 89 mm/Hg (35-45); ARTERIAL BLOOD GAS PH 7.39 (7.35-7.45); ARTERIAL BLOOD GAS PO2 64 mm/Hg (80-100); ARTERIAL BLOOD GAS TCO2 56.6 mmol/L (22-28)
[2016-09-29 06:29] LABS: BLOOD UREA NITROGEN 17 mg/dl (7-17); CALCIUM 9.4 mg/dL (8.4-10.2); GFR AFRICAN-AMERICAN > 60; GFR NON-AFRICAN AMERICAN > 60
[2016-09-29 06:36] LABS: HEMOGLOBIN 11.5 g/dL (12.0-16.0); MEAN CELL VOLUME 106.5 fl (81.0-99.0); MEAN CORPUSCULAR HEMOGLOBIN 33.4 pg (27.0-31.0); MEAN CORPUSCULAR HGB CONC 31.3 g/dL (33.0-37.0); RBC 3.44 Mil/uL (3.80-5.20); RED CELL DISTRIBUTION WIDTH 16.1 % (11.5-14.5); WHITE BLOOD COUNT 7.9 K/uL (4.8-10.8)
[2016-09-29] MEDS: Albuterol-Ipratrop 3 mg / 0.5 (3 ml) UD INH SCH ×2 (07:17→11:07)
[2016-09-29] MEDS: acetaZOLAMIDE 500 mg SR Cap PO SCH (08:51)
[2016-09-29] MEDS: Enoxaparin 40 mg Syringe SC SCH (08:53)
[2016-09-29] MEDS: Pantoprazole 40 mg EC Tab PO SCH (08:54)
[2016-09-29] MEDS: methylPREDNISolone 30 MG in Sodium Chloride 0.9% 50 ML IVPB SCH (08:54)
[2016-09-29] MEDS: Nystatin 100,000 Units/ml Oral Susp 5 ml UD PO SCH (08:54)
[2016-09-29] MEDS: Metoprolol Succinate 50 mg XL Tab PO SCH (08:55)
[2016-09-29] MEDS: Multivitamin With Minerals Tab PO SCH (08:55)
[2016-09-29] MEDS: Vitamin A/D oint 60G TP SCH (08:57)
[2016-09-29] MEDS: Piperacillin/Tazobact 3.375 GM in Sodium Chloride 0.9% 100 ML IVPB SCH (09:28)
--- NOTE | 2016-09-29 10:55 | CP.PCM.DIS ---
Provider - Provider Date of Admission: 09/24/16 10:01 Attending physician: Jef Montero MD Primary care physician: Dr Yusuf Consults: Pulm: Dr Yusuf Oncology: Dr Christen peralta Time Spent in preparation of Discharge (in minutes): 30 Diagnosis - Discharge Diagnosis (1) Acute on chronic respiratory failure with hypoxia and hypercapnia Status: Acute Priority: High (2) Bilateral pneumonia Status: Acute Priority: High (3) Bronchogenic carcinoma of left lung Status: Acute Priority: High (4) CO2 narcosis Status: Acute Priority: High (5) COPD exacerbation Status: Acute Priority: High (6) Debilitated patient Status: Acute (7) Hypertension Status: Chronic Priority: High (8) Rheumatoid arthritis Status: Chronic Priority: High (9) UTI (urinary tract infection) due to Enterococcus Status: Acute Hospital Course - Lab Results Lab Results: Micro Results 09/28/16 10:05 Sputum Gram Stain - Final 09/24/16 13:08 Urine,[place] Urine Culture - Final Enterococcus Faecalis 09/24/16 13:08 Nose MRSA Culture (Admit) - Final MRSA NOT DETECTED Most Recent Lab Values WBC 7.9 K/uL (4.8-10.8) 09/29/16 06:00 RBC 3.44 Mil/uL (3.80-5.20) L 09/29/16 06:00 Hgb 11.5 g/dL (12.0-16.0) L 09/29/16 06:00 Hct 36.7 % (34.0-47.0) 09/29/16 06:00 MCV 106.5 fl (81.0-99.0) H 09/29/16 06:00 MCH 33.4 pg (27.0-31.0) H 09/29/16 06:00 MCHC 31.3 g/dL (33.0-37.0) L 09/29/16 06:00 RDW 16.1 % (11.5-14.5) H 09/29/16 06:00 Plt Count 118 K/uL (130-400) L 09/29/16 06:00 MPV 9.6 fl (7.2-11.7) 09/26/16 04:20 Neut % (Auto) 97.1 % (50.0-75.0) H 09/26/16 04:20 Lymph % (Auto) 1.1 % (20.0-40.0) L 09/26/16 04:20 [place] % (Auto) 1.8 % (0.0-10.0) 09/26/16 04:20 Eos % (Auto) 0.0 % (0.0-4.0) 09/26/16 04:20 Baso % (Auto) 0.0 % (0.0-2.0) 09/26/16 04:20 Neut # 10.6 K/uL (1.8-7.0) H 09/26/16 04:20 Lymph # 0.1 K/uL (1.0-4.3) L 09/26/16 04:20 [place] # 0.2 K/uL (0.0-0.8) 09/26/16 04:20 Eos # 0.0 K/uL (0.0-0.7) 09/26/16 04:20 Baso # 0.0 K/uL (0.0-0.2) 09/26/16 04:20 Neutrophils % (Manual) 96 % (42-75) H 09/26/16 04:20 Band Neutrophils % 3 % (0-2) H 09/25/16 04:20 Lymphocytes % (Manual) 3 % (20-50) L 09/26/16 04:20 Monocytes % (Manual) 1 % (0-10) 09/26/16 04:20 Nucleated RBC % 1 % (0-0) H 09/24/16 08:55 Platelet Estimate Normal (NORMAL) 09/26/16 04:20 Plt Clumps, EDTA Present 09/24/16 08:55 Large Platelets Present 09/25/16 04:20 Hypochromasia (manual) Slight 09/26/16 04:20 Anisocytosis (manual) Slight 09/25/16 04:20 Macrocytosis (manual) Moderate 09/26/16 04:20 Tear Drop Cells Slight 09/24/16 08:55 Ovalocytes Slight 09/26/16 04:20 PT 11.5 Seconds (9.8-13.1) 09/24/16 08:55 INR 1.0 (0.9-1.2) 09/24/16 08:55 APTT 30.2 Seconds (25.6-37.1) 09/24/16 08:55 pCO2 89 mm/Hg (35-45) H* 09/29/16 05:23 pO2 64 mm/Hg (80-100) L 09/29/16 05:23 HCO3 43.5 mmol/L (21-28) H* 09/29/16 05:23 ABG pH 7.39 (7.35-7.45) 09/29/16 05:23 ABG Total CO2 56.6 mmol/L (22-28) H 09/29/16 05:23 ABG O2 Saturation 96.0 % (95-98) 09/29/16 05:23 ABG O2 Content 15.5 ML/dL (15-23) 09/29/16 05:23 ABG Base Excess 24.0 mmol/L (-2.0-3.0) H 09/29/16 05:23 ABG Hemoglobin 11.9 g/dL (11.7-17.4) 09/29/16 05:23 ABG Carboxyhemoglobin 2.5 % (0.5-1.5) H 09/29/16 05:23 POC ABG HHb (Measured) 3.8 % (0.0-5.0) 09/29/16 05:23 ABG Methemoglobin 1.6 % (0.0-3.0) 09/29/16 05:23 ABG O2 Capacity 16.1 mL/dL (16-24) 09/29/16 05:23 Jorge Luis Test Yes 09/29/16 05:23 VBG pH 7.24 (7.32-7.43) L 09/24/16 08:38 VBG pCO2 123 mmHg (40-60) H* 09/24/16 08:38 VBG HCO3 38.3 mmol/L 09/24/16 08:38 VBG O2 Sat (Calc) 61.5 % (40-65) 09/24/16 08:38 VBG Base Excess 18.6 mmol/L (0.0-2.0) H 09/24/16 08:38 A-a O2 Difference 110.0 mm/Hg 09/29/16 05:23 Hgb O2 Saturation 92.2 % (95.0-98.0) L 09/29/16 05:23 Vent Mode Bipap 09/29/16 05:23 Mechanical Rate 18 09/29/16 05:23 FiO2 40.0 % 09/29/16 05:23 Inspiratory BiPAP 18 09/29/16 05:23 Expiratory BiPAP 6 09/29/16 05:23 Blood Gas Comments 15 09/24/16 08:38 Crit Value Called To Rebeca farah rn 09/29/16 05:23 Crit Value Called By [id number] 09/29/16 05:23 Crit Value Read Back Y 09/29/16 05:23 Blood Gas Notified Time 526 09/29/16 05:23 Sodium 144 mmol/l (132-148) 09/29/16 06:00 Potassium 3.9 MMOL/L (3.6-5.0) 09/29/16 06:00 Chloride 95 mmol/L (98-107) L 09/29/16 06:00 Carbon Dioxide 48 mmol/L (22-30) H* 09/29/16 06:00 Anion Gap 5 (10-20) L 09/29/16 06:00 BUN 17 mg/dl (7-17) 09/29/16 06:00 Creatinine 0.9 mg/dL (0.7-1.2) 09/29/16 06:00 Est GFR ( Amer) > 60 09/29/16 06:00 Est GFR (Non-Af Amer) > 60 09/29/16 06:00 POC Glucose (mg/dL) 171 mg/dL (65-110) H 09/28/16 04:08 Random Glucose 135 mg/dL (65-105) H 09/29/16 06:00 Calcium 9.4 mg/dL (8.4-10.2) 09/29/16 06:00 Total Bilirubin 0.8 mg/dl (0.2-1.3) 09/24/16 08:55 AST 39 U/L (14-36) H D 09/24/16 08:55 ALT 41 U/L (9-52) 09/24/16 08:55 Alkaline Phosphatase 98 U/L (38-126) 09/24/16 08:55 Total Protein 7.7 G/DL (6.3-8.2) 09/24/16 08:55 Albumin 3.9 g/dL (3.5-5.0) 09/24/16 08:55 Globulin 3.7 gm/dL (2.2-3.9) 09/24/16 08:55 Albumin/Globulin Ratio 1.1 (1.0-2.1) 09/24/16 08:55 Urine Color Yellow (YELLOW) 09/24/16 13:08 Urine Clarity Slighty-cloudy (Clear) 09/24/16 13:08 Urine pH 6.0 (5.0-8.0) 09/24/16 13:08 Ur Specific [place] 1.021 (1.003-1.030) 09/24/16 13:08 Urine Protein 30 mg/dL (NEGATIVE) 09/24/16 13:08 Urine Glucose (UA) Neg mg/dL (Normal) 09/24/16 13:08 Urine Ketones Negative mg/dL (NEGATIVE) 09/24/16 13:08 Urine Blood Small (NEGATIVE) 09/24/16 13:08 Urine Nitrate Negative (NEGATIVE) 09/24/16 13:08 Urine Bilirubin Negative (NEGATIVE) 09/24/16 13:08 Urine Urobilinogen 0.2-1.0 mg/dL (0.2-1.0) 09/24/16 13:08 Ur Leukocyte Esterase Mod April/uL (Negative) 09/24/16 13:08 Urine RBC (Auto) 12 /hpf (0-3) H 09/24/16 13:08 Urine Microscopic WBC 56 /hpf (0-5) H 09/24/16 13:08 Ur Squamous Epith Cells < 1 /hpf (0-5) 09/24/16 13:08 Amorphous Sediment Occ /ul (<OCC) H 09/24/16 13:08 Urine Bacteria Rare (<OCC) 09/24/16 13:08 Hyaline Casts 3-5 /hpf (0-2) H 09/24/16 13:08 - Hospital Course Hospital Course: 66 year old female wth PMHx COPD, CHF, HTN, HLD, RA, Chronic LE Edema, MAT, 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 Hx of Chronic Resp Insuff on home Oxygen and Bipap presented to ER with SOB, lethargy and drowsiness. Patient is well known to our service from prior admissions. She is a chronic CO2 retainer with PCO2 baseline 80 . On day of admission, she was noted to be very lethargic. ICK6=927, She was admitted to the ICU and placed on Bipap , started on Duonebs , Solumedrol and IV antibiotics. Pulmonary was consulted. At present, she is doing very much better - on Bipap 18/6/18/40%. . Will d/c pt to TCU to continue IV antibiotics, IV Solumedrol and Physical therapy 1. Acute on Chronic Respiratory Failure with Hypoxia and Hypercapnea likely sec to COPD Exacerbation tolerating Bipap well continue Bipap for now and O2 via NC while eating pulmonary consulted: Dr. Yusuf cont Solumedrol IV, Duonebs, Zosyn, Vanco CXR showed chronic intestitial changes with questionable RLL infiltrate On acetazolamide 250 mg Po BID 2.Metastatic squamous cell carcinoma of the lung Patient following up with [facility] recent PET scan showed metastatic disease Oncology- Dr Christen peralta consulted- discussed case- will ff up markers and biopsy from [place] 3. Altered mental status secondary to CO2 narcosis improved at present awake , alert and oriented Continue BIPAP and O2 via NC on Acetazolamide 4. Bilateral pneumonia on Zosyn and Vanco 5. Hx of Multifocal Atrial Tachycardia and Episode of A Fib ASA 81 mg PO 1x/day Metoprolol 50 mg PO 1x/day She follows with Cardiology Dr. Cole as an outpatient and is currently not on anticoagulation 6. Chronic CHF (congestive heart failure), Diastolic Dysfunction/Pulm HTN Continue Metoprolol and Lasix 7. HTN (hypertension) on metoprolol 8. Hyperlipidemia Atorvastatin 10 mg PO QHS 9. GERD (gastroesophageal reflux disease) Protonix 40 mg 10. 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 Peripheral Vascular Disease/Chronic Venous Insufficiency with chronic LE edema and venous stasis With purple discoloration of her toes bilaterally and cool to touch Lac-hydrin lotion to dry skin LE Continue ASA 12. UTI urine cx positive for Eneteroccocus faecalis On vancomycin 13. Prophylactic measure Lovenox for DVT Prophylaxis Protonix for GI Prophylaxis Discharge Exam - Head Exam Head Exam: ATRAUMATIC, NORMAL INSPECTION, NORMOCEPHALIC - Eye Exam Eye Exam: EOMI, Normal appearance Pupil Exam: NORMAL ACCOMODATION - ENT Exam ENT Exam: Mucous Membranes Moist, Normal External Ear Exam - Neck Exam Neck exam: Full Rom - Respiratory Exam Respiratory Exam: Decreased Breath Sounds, Rales, Rhonchi, Wheezes Additional comments: Pt on Bipap - Cardiovascular Exam Cardiovascular Exam: Irregular Rhythm, +S1, +S2 - GI/Abdominal Exam GI & Abdominal Exam: Normal Bowel Sounds, Soft. absent: Tenderness - Extremities Exam Extremities exam: full ROM Additional comments: bilat LE erythema, stasis skin changes - Back Exam Back exam: absent: CVA tenderness (L), CVA tenderness (R) - Neurological Exam Neurological exam: Alert, CN II-XII Intact, Oriented x3 - Psychiatric Exam Psychiatric exam: Flat Affect, Normal Mood - Skin Skin Exam: Dry, Normal Color Discharge Plan - Discharge Medications Prescriptions: methylPREDNISolone [Solu-MEDROL] 30 mg IV Q12 #1 vial Piperacill/Tazo 3.375gm in Dex [Zosyn 3.375 Gm IV] 3.375 gm IVPB Q8 5 Days Vancomycin/0.9 % Sod Chloride [Vanco 1 Gram/250 ml-0.9% NaCl] 1 gm IV Q12 5 Days - Follow Up Plan Condition: IMPROVED Disposition: TRANSF TO SNF Additional Instructions: d/c to TCU Referrals: Chapo Yusuf MD [Family Provider] - Troy Peralta MD [Staff Provider] - Clinical Quality Measures - CQM - Heart Failure Ejection Fraction: 40 % or Greater Left Ventricular Function to be assessed after discharge: Yes FREDDY Inhibitor Prescribed: No Contraindication/Reason for not providing: low BP Beta-Alphonse Prescribed: Metoprolol Succinate Angiotensin II Receptor Alphonse Prescribed: No Contraindication/Reason for not providing: low BP AnticoagulationTherapy for Atrial Fibrillation/Atrialflutter: No Contraindication/Reason for not providing: not indicated Aldosterone Antagonist Prescribed: No Contraindication/Reason for not providing: low BP Hydralazine Nitrate Prescribed: No Contraindication/Reason for not providing: low BP Implantable Cardioverter Defibrillator Therapy: No Contraindication/Reason for not providing: not indicated Cardiac Resynchronization Therapy Prescribed: No Contraindication/Reason for not providing: not indicated Will be discharged to: [facility] Follow Up Date (must be within 7 days from discharge): 09/30/16 Follow Up Time: 09:00 - Date & Time of Discharge Summary Date of Discharge Summary: 09/29/16 Time of Discharge Summary: 13:29
[2016-09-29 12:11] VITALS: BP 94/46; PULSE 80; RESP 34; TEMP 99.2; O2SAT 94
--- NOTE | 2016-09-29 13:02 | CP.PCM.CON ---
History of Present Illness - History of Present Illness History of Present Illness: This is a 66 yrs old female who is known to me from the last admission. She has a h/o long standing COPD with frequent exacerbations of the same. Last time she was here she was found to have a mass in the left upper lobe of the lung. A bronchoscopic biopsy was done , which showed squamous cell carcinoma. She had gone to [facility] where she had a lung biopsy which was sent for markers to see if she will respond to immunotherapy. This time she came to the ER because she became tachypneic and hypoxic. Pt normally needs a bipap device when she sleeps, but recently she has also needed it during the day. She was admitted to the ICU but has improved and is going to a regular floor. Past Patient History - Infectious Disease Hx of Infectious Diseases: None - Tetanus Immunizations Tetanus Immunization: Unknown - Past Medical History & Family History Past Medical History?: Yes - Past Social History Smoking Status: Former Smoker Chewing Tobacco Use: No Cigar Use: No Alcohol: Social Drugs: Denies Home Situation {Lives}: With Family - CARDIAC Hx Atrial Fibrillation: Yes Hx Cardia Arrhythmia: Yes (MAT) Hx Congestive Heart Failure: Yes Hx Hypercholesterolemia: Yes Hx Hypertension: Yes Hx Peripheral Edema: Yes - PULMONARY Hx Chronic Obstructive Pulmonary Disease (COPD): Yes Hx Lung Cancer: Yes Hx Pneumonia: Yes - NEUROLOGICAL Hx Neurological Disorder: No - HEENT Hx HEENT Problems: No - RENAL Hx Chronic Kidney Disease: No - ENDOCRINE/METABOLIC Hx Endocrine Disorders: No - HEMATOLOGICAL/ONCOLOGICAL Hx Anemia: Yes Hx Human Immunodeficiency Virus (HIV): No - INTEGUMENTARY Other/Comment: Chronic lower extremity changes related to dependant edema - MUSCULOSKELETAL/RHEUMATOLOGICAL Hx Rheumatoid Arthritis: Yes - GASTROINTESTINAL Hx Gastroesophageal Reflux: Yes - GENITOURINARY/GYNECOLOGICAL Hx Genitourinary Disorders: No - PSYCHIATRIC Hx Psychophysiologic Disorder: No Hx Substance Use: No - SURGICAL HISTORY Hx Cholecystectomy: Yes - ANESTHESIA Hx Anesthesia: Yes Hx Anesthesia Reactions: No Hx Malignant Hyperthermia: No Meds Home Medications: Home Medication List Medication Instructions Recorded Confirmed Type Acetaminophen [Tylenol 325mg tab] 650 mg PO Q6H PRN tab 09/29/16 Rx Acetaminophen [Tylenol 325mg tab] 650 mg PO Q6H PRN tab 09/29/16 Rx Albuterol/Ipratropium [Duoneb 3 3 ml INH RQID 09/29/16 Rx mg/0.5 mg (3 ml) UD] Ammonium Lactate 12% [Lac-Hydrin 1 applic TOP Q12 bottle 09/29/16 Rx 12% Lotion (225 g)] Clotrimazole 1% Cream [Lotrimin 1% 1 applic TOP BID 09/29/16 Rx CREAM] Enoxaparin [Lovenox] 40 mg SC DAILY syr 09/29/16 Rx Folic Acid 2 mg PO BID tab 09/29/16 Rx Methotrexate 15 mg PO QWK tab 09/29/16 Rx Nystatin [Nystatin Oral Susp] 5 ml PO QID 09/29/16 Rx Ondansetron [Zofran Inj] 4 mg IVP Q6H PRN vial 09/29/16 Rx Piperacill/Tazo 3.375gm in Dex 3.375 gm IVPB Q8 5 Days 09/29/16 Rx [Zosyn 3.375 Gm IV] Sodium Chloride for Inhalation 4 ml IH ONCE PRN 09/29/16 Rx [Sodium Chloride 3% for Inhalation] Vancomycin/0.9 % Sod Chloride 1 gm IV Q12 5 Days 09/29/16 Rx [Vanco 1 Gram/250 ml-0.9% NaCl] Vitamin A/D [Vitamin A&D] 1 applic TP BID 09/29/16 Rx acetaZOLAMIDE [Diamox Sequels 500 500 mg PO Q12H cer 09/29/16 Rx mg SR Cap] Allergies/Adverse Reactions: Allergies Allergy/AdvReac Type Severity Reaction Status Date / Time shellfish derived Allergy RASH Verified 09/24/16 08:13 strawberry Allergy RASH Verified 09/24/16 08:13 - Medications Medications: Current Medications Acetaminophen (Tylenol 325mg Tab) 650 mg PO Q6H PRN PRN Reason: Pain, Mild (1-3) Acetaminophen (Tylenol 325mg Tab) 650 mg PO Q6H PRN PRN Reason: Fever >100.4 F Acetazolamide (Diamox Sequels 500 Mg Sr Cap) 500 mg PO Q12H [facility] Last Admin: 09/29/16 08:51 Dose: 500 mg Albuterol/Ipratropium (Duoneb 3 Mg/0.5 Mg (3 Ml) Ud) 3 ml INH RQID [facility] Last Admin: 09/29/16 11:07 Dose: 3 ml Aspirin (Aspirin Chewable) 81 mg PO DAILY [facility] Last Admin: 09/29/16 08:51 Dose: 81 mg Atorvastatin Calcium (Lipitor) 10 mg PO HS [facility] Last Admin: 09/28/16 21:02 Dose: 10 mg Cholecalciferol (Vitamin D) 2,000 iu PO DAILY [facility] Last Admin: 09/29/16 08:57 Dose: 2,000 iu Clotrimazole (Lotrimin 1% Cream) 1 applic TOP BID [facility] Last Admin: 09/29/16 10:59 Dose: 1 applic Enoxaparin Sodium (Lovenox) 40 mg SC DAILY [facility] PRN Reason: Protocol Last Admin: 09/29/16 08:53 Dose: 40 mg Folic Acid (Folic Acid) 2 mg PO BID [facility] Last Admin: 09/29/16 08:52 Dose: 2 mg Furosemide (Lasix) 40 mg PO DAILY [facility] Last Admin: 09/29/16 08:52 Dose: 40 mg Gabapentin (Neurontin) 100 mg PO DAILY [facility] Last Admin: 09/29/16 08:54 Dose: 100 mg Gabapentin (Neurontin) 300 mg PO HS [facility] Last Admin: 09/28/16 21:01 Dose: 300 mg Hydroxychloroquine Sulfate (Plaquenil) 400 mg PO DAILY [facility] Last Admin: 09/29/16 08:54 Dose: 400 mg Vancomycin HCl 1 gm/ Sodium (Chloride) 250 mls @ 166.667 mls/hr IVPB DAILY [facility] Last Admin: 09/29/16 08:56 Dose: 166.667 mls/hr Piperacillin Sod/Tazobactam (Sod 3.375 gm/ Sodium Chloride) 100 mls @ 100 mls/ hr IVPB Q12 [facility] Last Admin: 09/29/16 09:28 Dose: 100 mls/hr Methylprednisolone 30 mg/ (Sodium Chloride) 50 mls @ 100 mls/hr IVPB Q12 [facility] Last Admin: 09/29/16 08:54 Dose: 100 mls/hr Lactic Acid (Lac-Hydrin 12% Lotion (225 G)) 1 applic TOP Q12 [facility] Last Admin: 09/29/16 10:58 Dose: 1 applic Methotrexate (Methotrexate) 15 mg PO QWK [facility] PRN Reason: Protocol Metoprolol Succinate (Toprol Xl) 50 mg PO DAILY [facility] Last Admin: 09/29/16 08:55 Dose: Not Given Multivitamins/Minerals (Therapeutic-M Tab) 1 tab PO DAILY [facility] Last Admin: 09/29/16 08:55 Dose: 1 tab Nystatin (Nystatin Oral Susp) 5 ml PO QID [facility] Last Admin: 09/29/16 08:54 Dose: 5 ml Ondansetron HCl (Zofran Inj) 4 mg IVP Q6H PRN PRN Reason: Nausea/Vomiting Pantoprazole Sodium (Protonix Ec Tab) 40 mg PO DAILY [facility] Last Admin: 09/29/16 08:54 Dose: 40 mg Vitamin A (Vitamin A&D) 1 applic TP BID [facility] Last Admin: 09/29/16 08:57 Dose: 1 applic Physical Exam - Additional Findings Additional findings: Physical exam; Alert, well oriented on the Cpapmachine Nesk; supple, no mass, no h/s megaly Chest; Air entry diminished bilaterally, with rales and rhonchi bilaterally Heart; Tachycardia, grade 2/6 systolc murmur Abd; Soft, no mass, no h/s megaly. Results - Vital Signs Recent Vital Signs: Last Vital Signs Temp 99.2 F 09/29/16 12:00 Pulse 80 09/29/16 12:00 Resp 34 H 09/29/16 12:00 BP 94/46 L 09/29/16 12:00 Pulse Ox 94 L 09/29/16 12:00 - Labs Result Diagrams: 09/29/16 06:00 09/29/16 06:00 Labs: Laboratory Results - last 24 hr 09/29/16 09/29/16 09/29/16 05:23 06:00 06:00 WBC 7.9 RBC 3.44 L Hgb 11.5 L Hct 36.7 MCV 106.5 H MCH 33.4 H MCHC 31.3 L RDW 16.1 H Plt Count 118 L pCO2 89 H* pO2 64 L HCO3 43.5 H* ABG pH 7.39 ABG Total CO2 56.6 H ABG O2 Saturation 96.0 ABG O2 Content 15.5 ABG Base Excess 24.0 H ABG Hemoglobin 11.9 ABG Carboxyhemoglobin 2.5 H POC ABG HHb (Measured) 3.8 ABG Methemoglobin 1.6 ABG O2 Capacity 16.1 Jorge Luis Test Yes A-a O2 Difference 110.0 Hgb O2 Saturation 92.2 L Vent Mode Bipap Mechanical Rate 18 FiO2 40.0 Inspiratory BiPAP 18 Expiratory BiPAP 6 Crit Value Called To Rebeca farah rn Crit Value Called By [id number] Crit Value Read Back Y Blood Gas Notified Time 526 Sodium 144 Potassium 3.9 Chloride 95 L Carbon Dioxide 48 H* Anion Gap 5 L BUN 17 Creatinine 0.9 Est GFR ( Amer) > 60 Est GFR (Non-Af Amer) > 60 Random Glucose 135 H Calcium 9.4 Assessment & Plan - Assessment and Plan (Free Text) Assessment: impression; Exacerbation of COPD Squamous cell carcinoma of the lung Plan: Plan; Will awaut the result of the markers from the biopsy done at [facility]. - Date & Time Date: 09/29/16 Time: 13:07
--- NOTE | 2016-09-29 15:03 | RAD ---
PROCEDURE: CHEST RADIOGRAPH, 1 VIEW HISTORY: respiratory distress COMPARISON: 09/27/2016 FINDINGS: LUNGS: Stable bilateral interstitial changes. PLEURA: No pneumothorax or pleural fluid seen. CARDIOVASCULAR: Normal. OSSEOUS STRUCTURES: No significant abnormalities. VISUALIZED UPPER ABDOMEN: Normal. OTHER FINDINGS: None. IMPRESSION: No interval change.
--- NOTE | 2016-09-30 02:19 | PN ---
DATE: 09/29/2016 LOCATION: The patient in ICU bed 431. TIME SPENT: 35 minutes. SUBJECTIVE: The patient is seen and examined at the bedside. Events since admission reviewed. This 66-year-old female ,refomed smoker with chronic obstructive pulmonary disease, congestive heart failure, hypertension, hyperlipidemia, rheumatoid arthritis, chronic lower extremity edema, multifocal atrial tachycardia, squamous cell carcinoma with metastasis, admitted with [id number] respiratory failure with CO2 retention on BiPAP overnight. Tolerated the BiPAP well with decreasing CO2 retention. This morning, alert, awake, follows commands, appropriate, able to swallow food without any sign of aspiration. No cough or signs of aspiration noted. On oxygen 3 liters nasal cannula saturating in the low 90s. PHYSICAL EXAMINATION VITAL SIGNS: Temperature 98.9, heart rate 61 to 81, blood pressure 116/63, mean arterial pressure 80, respiratory rate 26, saturating 98%. FiO2 40% BiPAP. Intake 1324, output 1250, Positive balance 74. Weight 192 pounds. HEENT: Pupils reactive, conjunctiva pale and congested. Trachea is central. Oral mucosa dry. Cracked lips. CHEST: Bilateral, decreased breath sounds, bibasilar. Prolonged expiration, rhonchi bilateral, scattered. HEART: Rhythm regular. S1, S2 normal. ABDOMEN: Bowel sounds present, soft, not distended. EXTREMITIES: 1-2+ pitting pedal edema. Ecchymosis both upper extremities and lower extremities. NEURO EXAMINATION: Alert, awake, oriented x3. No cranial nerve deficit. Moves all 4 extremities. Dressing is intact on the lower extremities. CURRENT MEDICATIONS: Tylenol 650 q. 6 p.r.n., Diamox 500 p.o. q. 12, DuoNeb 3 mg nebulizer q. 6 hours, aspirin 81 mg daily, Lipitor 10 mg daily, vitamin D 2000 units daily, Lotrimin lotion one application topically b.i.d., Lovenox 40 subcu daily, folic acid 2 mg b.i.d., Lasix 40 mg daily, Neurontin 300 mg at bedtime, 100 mg p.o. daily, Plaquenil 400 mg p.o. daily, Lac-Hydrin 12% one application topically q. 12, methotrexate 15 mg q. week, methylprednisolone 30 mg q. 12, Toprol-XL 50 mg p.o. daily. IMPRESSION: Hyper-respiratory failure with hypercapnia and hypoxemia, chronic obstructive pulmonary disease, fairly advanced. Continue bronchodilator, systemic steroid. Cardiac, no issues. Neuro, alert,oriented to name, place, and time. Gastrointestinal, continue feeding as tolerated. . Renal, no further issues noted. History of squamous cell carcinoma with metastasism,being followed by oncology consult. Awaiting for gene expression study from [facility]. Continue current antibiotics, deep venous thrombosis and gastrointestinal prophylaxis. Pedro Cifuentes MD MTDD
== END 2016-09-29 11:00 | DRG 189 ==
LOC: H.ER 08:07 → H.ERHOLD 10:01 → H.ICU/CCU 11:06
PROVIDERS: ADMIT Hospitalist; ATTEND Hospitalist
PROC: 02HV33Z Insertion of Infusion Device into Superior Vena Cava, Percutaneous Approach (ICD-10-PCS; principal; 2016-09-24)
PROC: B518ZZA Fluoroscopy of Superior Vena Cava, Guidance (ICD-10-PCS; 2016-09-24)
PROC: 3E04329 Introduction of Other Anti-infective into Central Vein, Percutaneous Approach (ICD-10-PCS; 2016-09-24)
PROC: 5A09457 Assistance with Respiratory Ventilation, 24-96 Consecutive Hours, Continuous Positive Airway Pressure (ICD-10-PCS; 2016-09-24)
PROC: 3E0F7GC Introduction of Other Therapeutic Substance into Respiratory Tract, Via Natural or Artificial Opening (ICD-10-PCS; 2016-09-24)
DX: J96.21 Acute and chronic respiratory failure with hypoxia (principal); G93.41 Metabolic encephalopathy; J15.9 Unspecified bacterial pneumonia; C34.12 Malignant neoplasm of upper lobe, left bronchus or lung; I50.32 Chronic diastolic (congestive) heart failure; J84.9 Interstitial pulmonary disease, unspecified; I11.0 Hypertensive heart disease with heart failure; C79.9 Secondary malignant neoplasm of unspecified site; I27.2 Other secondary pulmonary hypertension; I47.1 Supraventricular tachycardia; J44.0 Chronic obstructive pulmonary disease with (acute) lower respiratory infection; J44.1 Chronic obstructive pulmonary disease with (acute) exacerbation; N39.0 Urinary tract infection, site not specified; I48.91 Unspecified atrial fibrillation; J96.22 Acute and chronic respiratory failure with hypercapnia; B95.2 Enterococcus as the cause of diseases classified elsewhere; M06.9 Rheumatoid arthritis, unspecified; K21.9 Gastro-esophageal reflux disease without esophagitis; I87.2 Venous insufficiency (chronic) (peripheral); I73.9 Peripheral vascular disease, unspecified; G62.9 Polyneuropathy, unspecified; J40 Bronchitis, not specified as acute or chronic; E78.5 Hyperlipidemia, unspecified; E78.00 Pure hypercholesterolemia, unspecified; D64.9 Anemia, unspecified; D72.828 Other elevated white blood cell count; Z99.81 Dependence on supplemental oxygen; F17.200 Nicotine dependence, unspecified, uncomplicated; Z79.52 Long term (current) use of systemic steroids; Z79.82 Long term (current) use of aspirin; Z91.013 Allergy to seafood; Z87.01 Personal history of pneumonia (recurrent)

== ENCOUNTER 2016-09-29 12:28 | Inpatient (IN) | payer OTHER, BC ==
[2016-09-29 13:00] VITALS: BMI 32.9
[2016-09-29] MEDS ORDERED: Sodium Chloride 3% for Inhalation 4 ML VIAL.NEB IH PRN (15:05)
[2016-09-29] MEDS: Albuterol-Ipratrop 3 mg / 0.5 (3 ml) UD INH SCH ×2 (15:53→19:11)
[2016-09-29] MEDS ORDERED: Patient's Own Med (Piperacill/Tazo 3.375gm In Dex [Zosyn 3.375 Gm Iv] 3.375 GM) IVPB SCH (17:00)
[2016-09-29] MEDS: Nystatin 100,000 Units/ml Oral Susp 5 ml UD PO SCH ×2 (17:11→21:48)
[2016-09-29] MEDS: acetaZOLAMIDE 500 mg SR Cap PO SCH ×2 (17:11→21:47)
[2016-09-29] MEDS: Vitamin A/D oint 60G TP SCH (17:12)
[2016-09-29] MEDS: Piperacill/Tazo 3.375gm in Dex 3.375 GM/50 ML BAG IVPB SCH (17:15)
[2016-09-29] MEDS ORDERED: MethylPREDNISolone 40 mg Vial IV SCH (21:00)
[2016-09-29] MEDS ORDERED: Patient's Own Med (Vancomycin/0.9 % Sod Chloride [Vanco 1 Gram/250 Ml-0.9% Nacl] 1 GM) IV SCH (21:00)
[2016-09-29] MEDS: methylPREDNISolone 30 MG in Sodium Chloride 0.9% 50 ML IVPB SCH (21:46)
[2016-09-30] MEDS: Piperacill/Tazo 3.375gm in Dex 3.375 GM/50 ML BAG IVPB SCH ×3 (00:09→17:43)
[2016-09-30] MEDS ORDERED: Albuterol-Ipratrop 3 mg / 0.5 (3 ml) UD INH STA ×2 (01:42→05:54)
[2016-09-30] MEDS ORDERED: Albuterol-Ipratrop 3 mg / 0.5 (3 ml) UD ONE (01:47)
[2016-09-30] MEDS ORDERED: Albuterol-Ipratrop 3 mg / 0.5 (3 ml) UD INH SCH (02:00)
--- NOTE | 2016-09-30 07:26 | CP.PCM.HP ---
History of Present Illness - History of Present Illness History of Present Illness: Chief Complaint : transferred to TCU to complete IV antibiotics, continue IV Steroids and for Physical therapy. 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 Patient is well known to our service from prior admissions. She is a chronic CO2 retainer with PCO2 baseline 80 . She was admitted to the ICU and placed on Bipap , started on Duonebs , Solumedrol and IV antibiotics. After a week of treatment in the ICU, her condition improved, CO2 went down to her baseline. Present on Admission - Present on Admission Any Indicators Present on Admission: No Review of Systems - Review of Systems All systems: reviewed and no additional remarkable complaints except - Constitutional Constitutional: Lethargy, Weakness. absent: Fever, Headache - EENT Eyes: absent: Change in Vision Ears: absent: Decreased Hearing, Ear Discharge, Tinnitus Nose/Mouth/Throat: absent: Nasal Congestion - Cardiovascular Cardiovascular: Dyspnea, Dyspnea on Exertion. absent: Chest Pain, Edema - Respiratory Respiratory: Dyspnea, Dyspnea on Exertion, Wheezing - Gastrointestinal Gastrointestinal: absent: Abdominal Pain, Nausea, Vomiting - Genitourinary Genitourinary: absent: Dysuria - Musculoskeletal Musculoskeletal: Arthralgias, Muscle Weakness - Integumentary Additional comments: bruises - Neurological Neurological: absent: Dizziness, Focal Weakness, Headaches - Psychiatric Psychiatric: Anxiety, Depression. absent: Auditory Hallucinations, Visual Hallucinations - Endocrine Endocrine: absent: Polydipsia, Polyphagia, Polyuria - Hematologic/Lymphatic Hematologic: Easy Bruising. 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 Alcohol: None Drugs: Denies Home Situation {Lives}: With Family - CARDIAC Hx Atrial Fibrillation: Yes Hx Cardia Arrhythmia: Yes (MAT) Hx Congestive Heart Failure: Yes Hx Hypercholesterolemia: Yes Hx Hypertension: Yes Hx Peripheral Edema: Yes Other/Comment: MATs hx - PULMONARY Hx Chronic Obstructive Pulmonary Disease (COPD): Yes Hx Lung Cancer: Yes Hx Pneumonia: Yes - NEUROLOGICAL Hx Neurological Disorder: No - HEENT Hx HEENT Problems: No - RENAL Hx Chronic Kidney Disease: No - ENDOCRINE/METABOLIC Hx Endocrine Disorders: No - HEMATOLOGICAL/ONCOLOGICAL Hx Anemia: Yes Hx Human Immunodeficiency Virus (HIV): No - INTEGUMENTARY Other/Comment: Chronic lower extremity changes related to dependant edema - MUSCULOSKELETAL/RHEUMATOLOGICAL Hx Falls: No Hx Rheumatoid Arthritis: Yes - GASTROINTESTINAL Hx Gastroesophageal Reflux: Yes - GENITOURINARY/GYNECOLOGICAL Hx Genitourinary Disorders: No - PSYCHIATRIC Hx Psychophysiologic Disorder: No Hx Substance Use: No - SURGICAL HISTORY Hx Cholecystectomy: Yes - ANESTHESIA Hx Anesthesia: Yes Hx Anesthesia Reactions: No Hx Malignant Hyperthermia: No Meds Allergies/Adverse Reactions: Allergies Allergy/AdvReac Type Severity Reaction Status Date / Time shellfish derived Allergy RASH Verified 09/24/16 08:13 strawberry Allergy RASH Verified 09/24/16 08:13 Physical Exam - Constitutional Appears: Chronically Ill - Head Exam Head Exam: ATRAUMATIC, NORMAL INSPECTION, NORMOCEPHALIC - Eye Exam Eye Exam: EOMI, Normal appearance Pupil Exam: NORMAL ACCOMODATION - ENT Exam ENT Exam: Mucous Membranes Moist, Normal External Ear Exam - Neck Exam Neck exam: Positive for: Full Rom. Negative for: Meningismus - Respiratory Exam Respiratory Exam: Accessory Muscle Use, Decreased Breath Sounds, Rales, Rhonchi , Wheezes Additional comments: On NC at present - Cardiovascular Exam Cardiovascular Exam: Irregular Rhythm - GI/Abdominal Exam GI & Abdominal Exam: Normal Bowel Sounds, Soft. absent: Tenderness - Extremities Exam Extremities exam: Negative for: calf tenderness, pedal edema Additional comments: LE erythema bilat sec to stasis skin changes - Back Exam Back exam: absent: CVA tenderness (L), CVA tenderness (R) - Neurological Exam Neurological exam: Alert, CN II-XII Intact, Oriented x3 - Psychiatric Exam Psychiatric exam: Flat Affect - Skin Skin Exam: Dry, Normal Color, Warm Additional comments: bruises tammy on arms Results - Vital Signs Recent Vital Signs: Last Vital Signs Temp 97.9 F 09/29/16 21:10 Pulse 89 09/30/16 01:52 Resp 20 09/29/16 21:10 BP 130/65 09/29/16 21:10 Pulse Ox 97 09/29/16 17:05 Assessment & Plan - Assessment and Plan (Free Text) Assessment: 66 year old female wth PMHx COPD, CHF, HTN, HLD, RA, Chronic LE Edema, MAT, 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 Hx of Chronic Resp Insuff on home Oxygen and Bipap , d/c 09/29 after a week of ICU stay - was admitted for Resp Failure, COPD exacerbation , Pneumonia and UTI. She is a chronic CO2 retainer with PCO2 baseline 80 . She was placed on Bipap , treated with IV antibiotics, Duoneb treatments and steroids. She was transferred to TCU to continue her treatment - IV antibiotics, IV Solumedrol and Physical therapy 1. Acute on Chronic Respiratory Failure with Hypoxia and Hypercapnea likely sec to COPD Exacerbation continue Bipap and O2 via [place] pulmonary consult- Dr. Yusuf cont Solumedrol IV, Duonebs, Zosyn, Vanco cont acetazolamide 250 mg Po BID 2.Metastatic squamous cell carcinoma of the lung Patient following up with [facility] recent PET scan showed metastatic disease Oncology- Dr Christen peralta consult - will ff up markers and biopsy from [place] 3. Altered mental status secondary to CO2 narcosis improved at present awake , alert and oriented Continue BIPAP and O2 via [place] 4. Bilateral pneumonia cont Zosyn and Vanco 5. Hx of Multifocal Atrial Tachycardia and Episode of A Fib ASA 81 mg PO 1x/day Metoprolol 50 mg PO 1x/day She follows with Cardiology Dr. Cole as an outpatient and is currently not on anticoagulation 6. Chronic CHF (congestive heart failure), Diastolic Dysfunction/Pulm HTN Continue Metoprolol and Lasix 7. HTN (hypertension) on metoprolol 8. Hyperlipidemia Atorvastatin 10 mg PO QHS 9. GERD (gastroesophageal reflux disease) Protonix 40 mg 10. 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 Peripheral Vascular Disease/Chronic Venous Insufficiency with chronic LE edema and venous stasis With purple discoloration of her toes bilaterally and cool to touch Lac-hydrin lotion to dry skin LE Continue ASA 12. UTI urine cx positive for Enteroccocus faecalis On vancomycin 13. Prophylactic measure Lovenox for DVT Prophylaxis Protonix for GI Prophylaxis Decision To Admit - Pt Status Changed To: Hospital Disposition Of: Inpatient - Admit Certification Admit to Inpatient:: After my assessment, the patient will require hospitalization for at least two midnights. This is because of the severity of symptoms shown, intensity of services needed, and/or the medical risk in this patient being treated as an outpatient. - . Bed Request Type: Transitional Care Unit Admitting Physician: Julisa Glover
[2016-09-30] MEDS: Albuterol-Ipratrop 3 mg / 0.5 (3 ml) UD INH SCH ×5 (07:27→23:22)
[2016-09-30] MEDS: methylPREDNISolone 30 MG in Sodium Chloride 0.9% 50 ML IVPB SCH (08:08)
[2016-09-30] MEDS: acetaZOLAMIDE 500 mg SR Cap PO SCH ×2 (08:09→21:20)
[2016-09-30] MEDS: Nystatin 100,000 Units/ml Oral Susp 5 ml UD PO SCH ×4 (08:09→21:21)
[2016-09-30] MEDS: Enoxaparin 40 mg Syringe SC SCH (08:09)
[2016-09-30] MEDS: Pantoprazole 40 mg EC Tab PO SCH (08:10)
[2016-09-30] MEDS: Metoprolol Succinate 50 mg XL Tab PO SCH (08:12)
[2016-09-30] MEDS: Multivitamin With Minerals Tab PO SCH (08:12)
[2016-09-30] MEDS: methylPREDNISolone 40 MG in Sodium Chloride 0.9% 50 ML IVPB SCH ×2 (09:27→21:18)
[2016-09-30] MEDS: Vitamin A/D oint 60G TP SCH ×2 (10:09→17:45)
[2016-10-01] MEDS: Piperacill/Tazo 3.375gm in Dex 3.375 GM/50 ML BAG IVPB SCH ×2 (01:13→08:45)
[2016-10-01] MEDS: Albuterol-Ipratrop 3 mg / 0.5 (3 ml) UD INH SCH ×5 (03:46→19:17)
[2016-10-01 06:46] LABS: HEMOGLOBIN 10.9 g/dL (12.0-16.0); MEAN CORPUSCULAR HEMOGLOBIN 33.2 pg (27.0-31.0); MEAN CORPUSCULAR HGB CONC 31.3 g/dL (33.0-37.0); RBC 3.27 Mil/uL (3.80-5.20); RED CELL DISTRIBUTION WIDTH 15.9 % (11.5-14.5); WHITE BLOOD COUNT 9.7 K/uL (4.8-10.8)
[2016-10-01 06:55] LABS: BLOOD UREA NITROGEN 15 mg/dl (7-17); CALCIUM 9.1 mg/dL (8.4-10.2); GFR AFRICAN-AMERICAN > 60; GFR NON-AFRICAN AMERICAN > 60
[2016-10-01] MEDS: Enoxaparin 40 mg Syringe SC SCH (08:38)
[2016-10-01] MEDS: acetaZOLAMIDE 500 mg SR Cap PO SCH ×2 (08:38→21:55)
[2016-10-01] MEDS: Nystatin 100,000 Units/ml Oral Susp 5 ml UD PO SCH ×4 (08:38→21:37)
[2016-10-01] MEDS: Pantoprazole 40 mg EC Tab PO SCH (08:41)
[2016-10-01] MEDS: Multivitamin With Minerals Tab PO SCH (08:41)
[2016-10-01] MEDS: Vitamin A/D oint 60G TP SCH ×2 (08:41→17:02)
[2016-10-01] MEDS: Metoprolol Succinate 50 mg XL Tab PO SCH (08:43)
[2016-10-01] MEDS: methylPREDNISolone 40 MG in Sodium Chloride 0.9% 50 ML IVPB SCH ×2 (08:45→21:36)
--- NOTE | 2016-10-01 10:35 | CP.PCM.CON ---
History of Present Illness - History of Present Illness History of Present Illness: This 66 year old female is well known to me because of her lung disease which has caused her to have a number of hospitalizations in the recent past. She suffers from COPD with restrictive disease as well, and has been diagnosed with stage IV NSCC of the lung (squamous cell ca). She suffers from chronic hypercapnic ventilatory failure with repeated acute decompensation and has been using NPPV at home with a BiPAP ventilator and home O2.She is a former cigarette smoker who is also on methotrexate because of RA. She also has moderate pulmonary hypertension with estimated RV systoic pressure 52. Review of Systems - Review of Systems All systems: reviewed and no additional remarkable complaints except - Constitutional Constitutional: Weakness - EENT Nose/Mouth/Throat: Change in Voice, Hoarsness - Cardiovascular Cardiovascular: Irregular Heart Rhythm - Respiratory Respiratory: Hemoptysis, Dyspnea on Exertion - Genitourinary Genitourinary: Urinary Incontinence - Musculoskeletal Musculoskeletal: Muscle Weakness - Integumentary Integumentary: Erythema, Swelling - Psychiatric Psychiatric: Anxiety Past Patient History - Infectious Disease Hx of Infectious Diseases: None - Tetanus Immunizations Tetanus Immunization: Unknown - Past Medical History & Family History Past Medical History?: Yes - Past Social History Smoking Status: Former Smoker Chewing Tobacco Use: No Cigar Use: No 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 Alcohol: None Drugs: Denies Home Situation {Lives}: With Family - CARDIAC Hx Atrial Fibrillation: Yes Hx Cardia Arrhythmia: Yes (MAT) Hx Congestive Heart Failure: Yes Hx Hypercholesterolemia: Yes Hx Hypertension: Yes Hx Peripheral Edema: Yes Other/Comment: MATs hx - PULMONARY Hx Chronic Obstructive Pulmonary Disease (COPD): Yes Hx Lung Cancer: Yes Hx Pneumonia: Yes - NEUROLOGICAL Hx Neurological Disorder: No - HEENT Hx HEENT Problems: No - RENAL Hx Chronic Kidney Disease: No - ENDOCRINE/METABOLIC Hx Endocrine Disorders: No - HEMATOLOGICAL/ONCOLOGICAL Hx Anemia: Yes Hx Human Immunodeficiency Virus (HIV): No - INTEGUMENTARY Other/Comment: Chronic lower extremity changes related to dependant edema - MUSCULOSKELETAL/RHEUMATOLOGICAL Hx Falls: No Hx Rheumatoid Arthritis: Yes - GASTROINTESTINAL Hx Gastroesophageal Reflux: Yes - GENITOURINARY/GYNECOLOGICAL Hx Genitourinary Disorders: No - PSYCHIATRIC Hx Psychophysiologic Disorder: No Hx Substance Use: No - SURGICAL HISTORY Hx Cholecystectomy: Yes - ANESTHESIA Hx Anesthesia: Yes Hx Anesthesia Reactions: No Hx Malignant Hyperthermia: No Meds Allergies/Adverse Reactions: Allergies Allergy/AdvReac Type Severity Reaction Status Date / Time shellfish derived Allergy RASH Verified 09/24/16 08:13 strawberry Allergy RASH Verified 09/24/16 08:13 - Medications Medications: Current Medications Acetaminophen (Tylenol 325mg Tab) 650 mg PO Q6H PRN PRN Reason: Fever >100.4 F Acetaminophen (Tylenol 325mg Tab) 650 mg PO Q6H PRN PRN Reason: Pain, Mild (1-3) Acetazolamide (Diamox Sequels 500 Mg Sr Cap) 500 mg PO Q12 [facility] Last Admin: 10/01/16 08:38 Dose: 500 mg Albuterol Sulfate (Albuterol 0.083% Inhal Janice (2.5 Mg/3 Ml) Ud) 2.5 mg INH RQ4 PRN PRN Reason: Shortness of Breath Albuterol/Ipratropium (Duoneb 3 Mg/0.5 Mg (3 Ml) Ud) 3 ml INH RQID [facility] Aspirin (Aspirin Chewable) 81 mg PO DAILY [facility] Last Admin: 10/01/16 08:38 Dose: 81 mg Atorvastatin Calcium (Lipitor) 10 mg PO HS [facility] Last Admin: 09/30/16 21:20 Dose: 10 mg Cholecalciferol (Vitamin D) 2,000 iu PO DAILY [facility] Last Admin: 10/01/16 08:41 Dose: 2,000 iu Clotrimazole (Lotrimin 1% Cream) 1 applic TOP BID [facility] Last Admin: 10/01/16 08:40 Dose: 1 applic Enoxaparin Sodium (Lovenox) 40 mg SC DAILY [facility] PRN Reason: Protocol Last Admin: 10/01/16 08:38 Dose: 40 mg Folic Acid (Folic Acid) 2 mg PO BID [facility] Last Admin: 10/01/16 08:39 Dose: 2 mg Furosemide (Lasix) 40 mg PO DAILY [facility] Last Admin: 10/01/16 08:40 Dose: 40 mg Gabapentin (Neurontin) 100 mg PO DAILY [facility] Last Admin: 10/01/16 08:40 Dose: 100 mg Gabapentin (Neurontin) 300 mg PO HS [facility] Last Admin: 09/30/16 21:20 Dose: 300 mg Hydroxychloroquine Sulfate (Plaquenil) 400 mg PO DAILY [facility] Last Admin: 10/01/16 08:41 Dose: 400 mg Methylprednisolone 40 mg/ (Sodium Chloride) 50 mls @ 100 mls/hr IVPB Q12 [facility] Last Admin: 10/01/16 08:45 Dose: 100 mls/hr Lactic Acid (Lac-Hydrin 12% Lotion (225 G)) 1 applic TOP Q12 [facility] Last Admin: 10/01/16 08:39 Dose: 1 applic Methotrexate (Methotrexate) 15 mg PO QWK [facility] PRN Reason: Protocol Metoprolol Succinate (Toprol Xl) 50 mg PO DAILY [facility] Last Admin: 10/01/16 08:43 Dose: Not Given Multivitamins/Minerals (Therapeutic-M Tab) 1 tab PO DAILY [facility] Last Admin: 10/01/16 08:41 Dose: 1 tab Nitrofurantoin Macrocrystals (Macrobid) 100 mg PO Q12 [facility] Nystatin (Nystatin Oral Susp) 5 ml PO QID [facility] Last Admin: 10/01/16 08:38 Dose: 5 ml Ondansetron HCl (Zofran Inj) 4 mg IVP Q6H PRN PRN Reason: Nausea/Vomiting Pantoprazole Sodium (Protonix Ec Tab) 40 mg PO DAILY [facility] Last Admin: 10/01/16 08:41 Dose: 40 mg Vitamin A (Vitamin A&D) 1 applic TP BID [facility] Last Admin: 10/01/16 08:41 Dose: 1 applic Physical Exam - Additional Findings Additional findings: Dependant edema of both LE's including posterior thighs. Dependant cyanosis of toes. Erythema w/o increased warmth of both LE's. Chronic derm changes of both calfs. Small quantity of dark bloody expectorate in bedside basin. Pharynx is pink and moist w/o exudate. Neck is supple and trachea midline. No visible JVD. No carotid bruit. Increased AP diameter of thorax, no dullness to percussion, no subcut emphysema. Breath sounds are markedly diminished bilaterally. Few scattered rhonchi and occasional faint E wheezes. No bronchial breath sounds or egophony. Heart sounds are distant, rhythm is irregular with good rate control. Abdomen is obese, soft and non-tender with normal bowel sounds. Results - Vital Signs Recent Vital Signs: Last Vital Signs Temp 97.7 F 10/01/16 08:29 Pulse 55 L 10/01/16 08:43 Resp 20 10/01/16 08:29 BP 137/56 L 10/01/16 08:43 Pulse Ox 100 10/01/16 08:29 - Labs Result Diagrams: 10/01/16 06:00 10/01/16 06:00 Labs: Laboratory Results - last 24 hr 10/01/16 10/01/16 06:00 06:00 WBC 9.7 RBC 3.27 L Hgb 10.9 L Hct 34.6 MCV 106.0 H MCH 33.2 H MCHC 31.3 L RDW 15.9 H Plt Count 122 L Sodium 141 Potassium 3.5 L Chloride 93 L Carbon Dioxide 46 H* Anion Gap 6 L BUN 15 Creatinine 0.8 Est GFR ( Amer) > 60 Est GFR (Non-Af Amer) > 60 Random Glucose 156 H Calcium 9.1 Assessment & Plan (1) Acute on chronic respiratory failure with hypoxia and hypercapnia Status: Chronic Priority: High Comment: Gradually increasing IPAP-NPPV as tolerated. (2) Bronchogenic carcinoma of left lung Status: Chronic Priority: High Comment: Awaiting any further results of gene expression before implementing therapies. (3) Atrial fibrillation Status: Chronic Priority: High Comment: Maintain rate control. (4) COPD (chronic obstructive pulmonary disease) Status: Chronic Priority: High Comment: Continue current maintenance therapies. (5) Pulmonary hypertension Status: Chronic Priority: High Comment: Supplemental oxygen for apparent Group 3 PHN. (6) Rheumatoid arthritis Status: Chronic Priority: High Comment: On maintenance regimen with MTX. (7) Hoarseness of voice Status: Acute Priority: High Comment: This may represent laryngeal nerve involvement with STEPHEN bronchogenic ca. - Date & Time Date: 10/01/16 Time: 10:35
[2016-10-02] MEDS: Albuterol 0.083% Inhal Sol (2.5 mg/3 mL) UD INH PRN ×2 (00:54→23:42)
[2016-10-02] MEDS: Albuterol-Ipratrop 3 mg / 0.5 (3 ml) UD INH SCH ×4 (07:34→19:01)
[2016-10-02] MEDS: acetaZOLAMIDE 500 mg SR Cap PO SCH ×2 (09:06→21:17)
[2016-10-02] MEDS: Multivitamin With Minerals Tab PO SCH (09:08)
[2016-10-02] MEDS: methylPREDNISolone 40 MG in Sodium Chloride 0.9% 50 ML IVPB SCH ×2 (09:08→21:18)
[2016-10-02] MEDS: Pantoprazole 40 mg EC Tab PO SCH (09:08)
[2016-10-02] MEDS: Nystatin 100,000 Units/ml Oral Susp 5 ml UD PO SCH ×4 (09:08→21:18)
[2016-10-02] MEDS: Vitamin A/D oint 60G TP SCH ×2 (09:09→17:15)
[2016-10-02] MEDS: Enoxaparin 40 mg Syringe SC SCH (09:10)
[2016-10-02] MEDS: Metoprolol Succinate 50 mg XL Tab PO SCH (09:20)
--- NOTE | 2016-10-02 09:49 | CP.PCM.PN ---
Subjective - Date & Time of Evaluation Date of Evaluation: 10/02/16 Time of Evaluation: 09:34 - Subjective Subjective: Seated in bedside chair, on NPPV. Appears unable to tolerate higher IPAP pressures of 20cm. Requests mask removal at night on two separate occasions documented in EMR. Large air leak present at this time despite attempts to re-seat mask with gel pad in place. SpO2 is ~90%, RR remains >20BPM. Still having bloody sputum expectorate. Also has large area of ecchymosis in lower abdominal wall. Dependant edema with dusky nail beds still present, appears to be baseline finding. Scattered ecchymoses over UE's. Peripheral pulses in UE's well felt bilaterally. Neck is supple and trachea midline. Increased AP diameter of thorax. Breath sounds are present bilaterally with prolonged E phase and scattered high- pitched E wheezes. Few basal dry rales in lower lobes bilaterally. Heart sounds are distant, irregular. Suspend enoxaparin, continue ASA. NPPV changed back to IPAP 16, maintain EPAP 6, rate increased to 20 BPM, O2 up to 50%. Off Vanco/Zosyn, on Macrobid. Will contact MD at [facility] today for any updates on recent biopsy specimen. If she is unable to tolerate therapy for her lung ca, or if there is no response to treatment, discussion regarding Palliative Care will be needed. Hopefully we will ultimately be able to use the NPPV to actually gain control of her nocturnal ventilation and effectively supply adequate oxygenation with reduced CO2 levels. Objective - Vital Signs/Intake and Output Vital Signs (last 24 hours): Temp Pulse Resp BP Pulse Ox 97.6 F 110 H 18 126/73 95 10/02/16 07:54 10/02/16 09:20 10/02/16 07:54 10/02/16 09:20 10/02/16 08:42 - Medications Medications: Current Medications Acetaminophen (Tylenol 325mg Tab) 650 mg PO Q6H PRN PRN Reason: Fever >100.4 F Acetaminophen (Tylenol 325mg Tab) 650 mg PO Q6H PRN PRN Reason: Pain, Mild (1-3) Acetazolamide (Diamox Sequels 500 Mg Sr Cap) 500 mg PO Q12 [facility] Last Admin: 10/02/16 09:06 Dose: 500 mg Albuterol Sulfate (Albuterol 0.083% Inhal Janice (2.5 Mg/3 Ml) Ud) 2.5 mg INH RQ4 PRN PRN Reason: Shortness of Breath Last Admin: 10/02/16 00:54 Dose: 2.5 mg Albuterol/Ipratropium (Duoneb 3 Mg/0.5 Mg (3 Ml) Ud) 3 ml INH RQID [facility] Last Admin: 10/02/16 07:34 Dose: 3 ml Aspirin (Aspirin Chewable) 81 mg PO DAILY [facility] Last Admin: 10/02/16 09:05 Dose: 81 mg Atorvastatin Calcium (Lipitor) 10 mg PO HS [facility] Last Admin: 10/01/16 21:37 Dose: 10 mg Cholecalciferol (Vitamin D) 2,000 iu PO DAILY [facility] Last Admin: 10/02/16 09:09 Dose: 2,000 iu Clotrimazole (Lotrimin 1% Cream) 1 applic TOP BID [facility] Last Admin: 10/02/16 09:07 Dose: 1 applic Enoxaparin Sodium (Lovenox) 40 mg SC DAILY [facility] PRN Reason: Protocol Last Admin: 10/02/16 09:10 Dose: Not Given Folic Acid (Folic Acid) 2 mg PO BID [facility] Last Admin: 10/02/16 09:06 Dose: 2 mg Furosemide (Lasix) 40 mg PO DAILY [facility] Last Admin: 10/02/16 09:06 Dose: 40 mg Gabapentin (Neurontin) 100 mg PO DAILY [facility] Last Admin: 10/02/16 09:07 Dose: 100 mg Gabapentin (Neurontin) 300 mg PO HS [facility] Last Admin: 10/01/16 21:37 Dose: 300 mg Hydroxychloroquine Sulfate (Plaquenil) 400 mg PO DAILY [facility] Last Admin: 10/02/16 09:08 Dose: 400 mg Methylprednisolone 40 mg/ (Sodium Chloride) 50 mls @ 100 mls/hr IVPB Q12 [facility] Last Admin: 10/02/16 09:08 Dose: 100 mls/hr Lactic Acid (Lac-Hydrin 12% Lotion (225 G)) 1 applic TOP Q12 [facility] Last Admin: 10/02/16 09:06 Dose: 1 applic Methotrexate (Methotrexate) 15 mg PO QWK [facility] PRN Reason: Protocol Metoprolol Succinate (Toprol Xl) 50 mg PO DAILY [facility] Last Admin: 08/01/17 09:20 Dose: 50 mg Multivitamins/Minerals (Therapeutic-M Tab) 1 tab PO DAILY [facility] Last Admin: 10/02/16 09:08 Dose: 1 tab Nitrofurantoin Macrocrystals (Macrobid) 100 mg PO Q12 [facility] Last Admin: 10/02/16 09:07 Dose: 100 mg Nystatin (Nystatin Oral Susp) 5 ml PO QID [facility] Last Admin: 10/02/16 09:08 Dose: 5 ml Ondansetron HCl (Zofran Inj) 4 mg IVP Q6H PRN PRN Reason: Nausea/Vomiting Pantoprazole Sodium (Protonix Ec Tab) 40 mg PO DAILY [facility] Last Admin: 10/02/16 09:08 Dose: 40 mg Vitamin A (Vitamin A&D) 1 applic TP BID [facility] Last Admin: 10/02/16 09:09 Dose: 1 applic - Labs Labs: 10/01/16 06:00 10/01/16 06:00 Assessment and Plan (1) Acute on chronic respiratory failure with hypoxia and hypercapnia Status: Chronic (2) 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
--- NOTE | 2016-10-02 15:02 | CP.PCM.PN ---
Subjective - Date & Time of Evaluation Date of Evaluation: 10/02/16 Time of Evaluation: 14:45 - Subjective Subjective: Hospitalist Progress Note (Patient was seen and examined at 2:45 PM 10/02/16 712-1 ) 66 year old female wth PMHx Severe COPD, CHF, HTN, HLD, RA, Chronic LE Edema, PVD, MAT, recently diagnosed squamous cell Carcinoma of the lung with metastasis, Hx of Chronic Resp Insuff on home Oxygen and Bipap , was admitted to the ICU for Acute on Chronic Resp Failure, COPD exacerbation and Pneumonia. She was discharge to [facility] on 09/29/16 for continuation of treatment and PT/OT. Currently upon FULL ROS: Dyspnea/SOB/Wet cough occasionally productive of while material currently requiring BiPAP Pain/bruising at the site of Lovenox injections Has not moved her bowels today with last bowel movement yesterday 10/01/16 NO burning/pain with urination NO dysphagia/odynophagia NO abdominal pain NO n/v/d NO other complaints upon FULL ROS Physical Exam - Constitutional Appears: No Acute Distress Additional comments: Patient currently only able to answer yes and no as she is on BiPAP - Head Exam Additional comments: 1 x .5 cm pink papule that is ulcerated in the junction of the occipital and bilateral parietal scalps - Eye Exam Eye Exam: EOMI, Normal appearance, PERRL Pupil Exam: NORMAL ACCOMODATION, PERRL - ENT Exam Additional comments: Ruptured Central Nasal Septum (she has a history of this) Mucous membranes are dry NO pharyngeal erythema/exudate NO thyromegaly NO cervical/supraclavicular/submandibular lymphadenopathy - Neck Exam Additional comments: Please see ENT Exam - Respiratory Exam Additional comments: Bilateral bibasilar inspiratory crackles - Cardiovascular Exam Cardiovascular Exam: Irregular Rhythm Additional comments: Irregularly irregular NO M/R/G - GI/Abdominal Exam Additional comments: BSx4, Soft, NT, Central Obesity therefore Liver and Spleen could not be palpated , NO guarding/rebound tenderness - Extremities Exam Additional comments: BILATERAL PULSES ARE STRONG AND EQUAL CAPILLARY REFILL IS 2 SECONDS BILATERAL LOWER LEGS SHOW 1+ EDEMA UPTO THE BILATERAL TIBIAL TUBEROSITIES. BILATERAL LOWER LEGS ANTERIOR SURFACE HAS HYPERKERATOSIS AND AREAS OF PEELING OF THE SKIN WITHOUT EVIDENCE OF CELLULITIS BILATERAL FEET TOES SHOW CYANOSIS AND ARE SLIGHTLY COOL TO THE TOUCH RIGHT ARM PICC LINE - Neurological Exam Neurological exam: Alert, CN II-XII Intact, Oriented x3 - Psychiatric Exam Psychiatric exam: Normal Affect, Normal Mood -Skin Exam Multiple large areas of bruising is present on the bialteral arms and bilateral lower abdomen 1. Acute on Chronic Respiratory Failure with Hypoxia and Hypercapnea likely sec to COPD Exacerbation continue Bipap and O2 via [place] pulmonary consult- Dr. Yusuf cont Solumedrol IV, Duonebs, Acetazolamide Vancomycin and Zosyn were discontinued by Pulmonary 10/01/16. She has a Right Arm PICC Line. 2.Metastatic squamous cell carcinoma of the lung Patient following up with [facility] Recent PET scan showed metastatic disease Oncology- Dr Christen peralta consult Dr. Yusuf to speak with Wheeler for f/u on biopsies as per his note on 10/02/16 3. Altered mental status secondary to CO2 narcosis Improved At present awake , alert and oriented Continue BIPAP and O2 via [place] 4. Hx Bilateral pneumonia Vancomycin and Zosyn discontinued by Pulmonary 10/02/16 after 9 days of treatment 5. Hx of Multifocal Atrial Tachycardia and Episode of A Fib ASA 81 mg PO 1x/day Metoprolol 50 mg PO 1x/day She follows with Cardiology Dr. Cole as an outpatient and is currently not on anticoagulation 6. Chronic CHF (congestive heart failure), Diastolic Dysfunction/Pulm HTN Continue Metoprolol and Lasix 7. HTN (hypertension) on metoprolol 8. Hyperlipidemia Atorvastatin 10 mg PO QHS 9. GERD (gastroesophageal reflux disease) Protonix 40 mg 10. Rheumatoid arthritis/Peripheral Neuropathy of Bilateral Feet Hx Interstitial Lung Disease Methotrexate 15 mg PO 1x/day on Saturday Folic Acid 2 mg PO 2x/day Plaquenil 400 mg PO 1x/day Gabapentin 11. Peripheral Vascular Disease/Chronic Venous Insufficiency With chronic LE edema and venous stasis With cyanosis of her toes bilaterally and cool to touch Lac-hydrin lotion to dry skin LE Continue ASA 12. UTI Urine cx #1 positive for Enteroccocus faecalis Currently on Macrobid Repeat Urine Culture ordered for 10/02/16 to see if the infection has cleared up 13. Hypokalemia 1 dose of KCl 20 mEQ F/U labs 10/03/16 14. Prophylactic measure Lovenox for DVT Prophylaxis Protonix for GI Prophylaxis Vitamin D Folic Acid Nystatin 5 ml PO 1x/day Zofran Objective - Vital Signs/Intake and Output Vital Signs (last 24 hours): Temp Pulse Resp BP Pulse Ox 97.6 F 90 18 126/73 95 10/02/16 07:54 10/02/16 11:18 10/02/16 07:54 10/02/16 09:20 10/02/16 07:54 - Medications Medications: Current Medications Acetaminophen (Tylenol 325mg Tab) 650 mg PO Q6H PRN PRN Reason: Fever >100.4 F Acetaminophen (Tylenol 325mg Tab) 650 mg PO Q6H PRN PRN Reason: Pain, Mild (1-3) Acetazolamide (Diamox Sequels 500 Mg Sr Cap) 500 mg PO Q12 [facility] Last Admin: 10/02/16 09:06 Dose: 500 mg Albuterol Sulfate (Albuterol 0.083% Inhal Janice (2.5 Mg/3 Ml) Ud) 2.5 mg INH RQ4 PRN PRN Reason: Shortness of Breath Last Admin: 10/02/16 00:54 Dose: 2.5 mg Albuterol/Ipratropium (Duoneb 3 Mg/0.5 Mg (3 Ml) Ud) 3 ml INH RQID [facility] Last Admin: 10/02/16 11:17 Dose: 3 ml Aspirin (Aspirin Chewable) 81 mg PO DAILY [facility] Last Admin: 10/02/16 09:05 Dose: 81 mg Atorvastatin Calcium (Lipitor) 10 mg PO HS [facility] Last Admin: 10/01/16 21:37 Dose: 10 mg Cholecalciferol (Vitamin D) 2,000 iu PO DAILY [facility] Last Admin: 10/02/16 09:09 Dose: 2,000 iu Clotrimazole (Lotrimin 1% Cream) 1 applic TOP BID [facility] Last Admin: 10/02/16 09:07 Dose: 1 applic Enoxaparin Sodium (Lovenox) 40 mg SC DAILY [facility] PRN Reason: Protocol Last Admin: 10/02/16 09:10 Dose: Not Given Folic Acid (Folic Acid) 2 mg PO BID [facility] Last Admin: 10/02/16 09:06 Dose: 2 mg Furosemide (Lasix) 40 mg PO DAILY [facility] Last Admin: 10/02/16 09:06 Dose: 40 mg Gabapentin (Neurontin) 100 mg PO DAILY [facility] Last Admin: 10/02/16 09:07 Dose: 100 mg Gabapentin (Neurontin) 300 mg PO HS [facility] Last Admin: 10/01/16 21:37 Dose: 300 mg Hydroxychloroquine Sulfate (Plaquenil) 400 mg PO DAILY [facility] Last Admin: 10/02/16 09:08 Dose: 400 mg Methylprednisolone 40 mg/ (Sodium Chloride) 50 mls @ 100 mls/hr IVPB Q12 [facility] Last Admin: 10/02/16 09:08 Dose: 100 mls/hr Lactic Acid (Lac-Hydrin 12% Lotion (225 G)) 1 applic TOP Q12 [facility] Last Admin: 10/02/16 09:06 Dose: 1 applic Methotrexate (Methotrexate) 15 mg PO QWK [facility] PRN Reason: Protocol Metoprolol Succinate (Toprol Xl) 50 mg PO DAILY [facility] Last Admin: 10/02/16 09:20 Dose: 50 mg Multivitamins/Minerals (Therapeutic-M Tab) 1 tab PO DAILY [facility] Last Admin: 10/02/16 09:08 Dose: 1 tab Nitrofurantoin Macrocrystals (Macrobid) 100 mg PO Q12 [facility] Last Admin: 10/02/16 09:07 Dose: 100 mg Nystatin (Nystatin Oral Susp) 5 ml PO QID [facility] Last Admin: 10/02/16 13:46 Dose: 5 ml Ondansetron HCl (Zofran Inj) 4 mg IVP Q6H PRN PRN Reason: Nausea/Vomiting Pantoprazole Sodium (Protonix Ec Tab) 40 mg PO DAILY [facility] Last Admin: 10/02/16 09:08 Dose: 40 mg Vitamin A (Vitamin A&D) 1 applic TP BID [facility] Last Admin: 10/02/16 09:09 Dose: 1 applic - Labs Labs: 10/01/16 06:00 10/01/16 06:00
[2016-10-02] MEDS ORDERED: Potassium Chloride 20 mEq ER Tab PO ONE (16:00)
[2016-10-03] MEDS: Albuterol 0.083% Inhal Sol (2.5 mg/3 mL) UD INH PRN (04:09)
[2016-10-03 07:09] LABS: BASO % 0.4 % (0.0-2.0); HEMOGLOBIN 10.9 g/dL (12.0-16.0); LYMPH # 0.2 K/uL (1.0-4.3); LYMPH % 1.4 % (20.0-40.0); MEAN CELL VOLUME 107.1 fl (81.0-99.0); MEAN CORPUSCULAR HEMOGLOBIN 32.8 pg (27.0-31.0); MEAN CORPUSCULAR HGB CONC 30.7 g/dL (33.0-37.0); MEAN PLATELET VOLUME 9.7 fl (7.2-11.7); MONO # 0.5 K/uL (0.0-0.8); MONO % 4.3 % (0.0-10.0); NEUT # 11.3 K/uL (1.8-7.0); NEUT % 93.9 % (50.0-75.0); NRBC % 0.2 % (0.0-0.0); PLATELET COUNT 144 K/uL (130-400); RBC 3.33 Mil/uL (3.80-5.20); RED CELL DISTRIBUTION WIDTH 16.3 % (11.5-14.5); WHITE BLOOD COUNT 12.1 K/uL (4.8-10.8)
[2016-10-03 07:24] LABS: ALB/GLOB RATIO 1.3 (1.0-2.1); ALBUMIN 3.2 g/dL (3.5-5.0); ALT/SGPT 77 U/L (9-52); AST/SGOT 39 U/L (14-36); BLOOD UREA NITROGEN 14 mg/dl (7-17); CALCIUM 9.6 mg/dL (8.4-10.2); GFR AFRICAN-AMERICAN > 60; GFR NON-AFRICAN AMERICAN > 60; MAGNESIUM 2.3 MG/DL (1.6-2.3)
[2016-10-03] MEDS: Albuterol-Ipratrop 3 mg / 0.5 (3 ml) UD INH SCH ×4 (07:47→19:02)
[2016-10-03] MEDS: acetaZOLAMIDE 500 mg SR Cap PO SCH ×2 (09:32→21:03)
[2016-10-03] MEDS: Pantoprazole 40 mg EC Tab PO SCH (09:32)
[2016-10-03] MEDS: Nystatin 100,000 Units/ml Oral Susp 5 ml UD PO SCH ×4 (09:33→21:04)
[2016-10-03] MEDS: Multivitamin With Minerals Tab PO SCH (09:34)
[2016-10-03] MEDS: Metoprolol Succinate 50 mg XL Tab PO SCH (09:34)
[2016-10-03] MEDS: Vitamin A/D oint 60G TP SCH ×2 (09:38→17:34)
[2016-10-03] MEDS: methylPREDNISolone 40 MG in Sodium Chloride 0.9% 50 ML IVPB SCH ×2 (09:44→21:24)
[2016-10-03 10:31] LABS: LYMPHOCYTE 1 % (20-50); MONOCYTE 9 % (0-10); NEUTROPHIL 88 % (42-75); NUCLEATED RED BLOOD CELL 1 % (0-0); REACTIVE LYMPHOCYTES 2 % (0-0); TOTAL CELLS COUNTED 100
[2016-10-03 10:33] LABS: ANISOCYTOSIS SLIGHT; HYPOCHROMIC SLIGHT; PLATELET ESTIMATE NORMAL (NORMAL)
[2016-10-03 10:34] LABS: LARGE PLATELETS PRESENT; OVALOCYTES SLIGHT; SCHISTOCYTES SLIGHT; TEARDROP CELLS SLIGHT
[2016-10-04] MEDS: Albuterol 0.083% Inhal Sol (2.5 mg/3 mL) UD INH PRN (03:51)
[2016-10-04] MEDS: Albuterol-Ipratrop 3 mg / 0.5 (3 ml) UD INH SCH ×4 (07:35→20:00)
[2016-10-04] MEDS: Nystatin 100,000 Units/ml Oral Susp 5 ml UD PO SCH ×4 (08:52→22:29)
[2016-10-04] MEDS: Pantoprazole 40 mg EC Tab PO SCH (08:53)
[2016-10-04] MEDS: acetaZOLAMIDE 500 mg SR Cap PO SCH ×2 (08:53→22:27)
[2016-10-04] MEDS: Multivitamin With Minerals Tab PO SCH (08:53)
[2016-10-04] MEDS: Metoprolol Succinate 50 mg XL Tab PO SCH (08:54)
[2016-10-04] MEDS: Vitamin A/D oint 60G TP SCH ×3 (09:00→17:22)
[2016-10-04] MEDS: methylPREDNISolone 40 MG in Sodium Chloride 0.9% 50 ML IVPB SCH ×2 (09:04→22:30)
--- NOTE | 2016-10-04 10:41 | CP.PCM.CON ---
History of Present Illness - History of Present Illness History of Present Illness: This is a66 yrs old female with a long standing history of COPD with several admissions for acute exacerbations. Last admission she was found to have a mass in the left upper lobe. A bronchoscopic needle biopsy was done which showed squamous cell cancer. She was referred to [facility].She had a biopsy done which showed a sq cell ca, but it was sent fot EGFR and PDLI , So chemo could be determined. At this time she is in a very poor condition. inspite of CPAP We are awaiting the result of the markers. she is very hypoxic with some acrocyanosis. 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 Alcohol: None Drugs: Denies Home Situation {Lives}: With Family - CARDIAC Hx Atrial Fibrillation: Yes Hx Cardia Arrhythmia: Yes (MAT) Hx Congestive Heart Failure: Yes Hx Hypercholesterolemia: Yes Hx Hypertension: Yes Hx Peripheral Edema: Yes Other/Comment: MATs hx - PULMONARY Hx Chronic Obstructive Pulmonary Disease (COPD): Yes Hx Lung Cancer: Yes Hx Pneumonia: Yes - NEUROLOGICAL Hx Neurological Disorder: No - HEENT Hx HEENT Problems: No - RENAL Hx Chronic Kidney Disease: No - ENDOCRINE/METABOLIC Hx Endocrine Disorders: No - HEMATOLOGICAL/ONCOLOGICAL Hx Anemia: Yes Hx Human Immunodeficiency Virus (HIV): No - INTEGUMENTARY Other/Comment: Chronic lower extremity changes related to dependant edema - MUSCULOSKELETAL/RHEUMATOLOGICAL Hx Falls: No Hx Rheumatoid Arthritis: Yes - GASTROINTESTINAL Hx Gastroesophageal Reflux: Yes - GENITOURINARY/GYNECOLOGICAL Hx Genitourinary Disorders: No - PSYCHIATRIC Hx Psychophysiologic Disorder: No Hx Substance Use: No - SURGICAL HISTORY Hx Cholecystectomy: Yes - ANESTHESIA Hx Anesthesia: Yes Hx Anesthesia Reactions: No Hx Malignant Hyperthermia: No Meds Allergies/Adverse Reactions: Allergies Allergy/AdvReac Type Severity Reaction Status Date / Time shellfish derived Allergy RASH Verified 09/24/16 08:13 strawberry Allergy RASH Verified 09/24/16 08:13 - Medications Medications: Current Medications Acetaminophen (Tylenol 325mg Tab) 650 mg PO Q6H PRN PRN Reason: Fever >100.4 F Acetaminophen (Tylenol 325mg Tab) 650 mg PO Q6H PRN PRN Reason: Pain, Mild (1-3) Acetazolamide (Diamox Sequels 500 Mg Sr Cap) 500 mg PO Q12 [facility] Last Admin: 10/04/16 08:53 Dose: 500 mg Albuterol Sulfate (Albuterol 0.083% Inhal Janice (2.5 Mg/3 Ml) Ud) 2.5 mg INH RQ4 PRN PRN Reason: Shortness of Breath Last Admin: 10/04/16 03:51 Dose: 2.5 mg Albuterol/Ipratropium (Duoneb 3 Mg/0.5 Mg (3 Ml) Ud) 3 ml INH RQID [facility] Last Admin: 10/04/16 07:35 Dose: 3 ml Aspirin (Aspirin Chewable) 81 mg PO DAILY [facility] Last Admin: 10/04/16 08:54 Dose: 81 mg Atorvastatin Calcium (Lipitor) 10 mg PO HS [facility] Last Admin: 10/03/16 21:04 Dose: 10 mg Cholecalciferol (Vitamin D) 2,000 iu PO DAILY [facility] Last Admin: 10/03/16 09:34 Dose: 2,000 iu Clotrimazole (Lotrimin 1% Cream) 1 applic TOP BID [facility] Last Admin: 10/04/16 08:53 Dose: 1 applic Enoxaparin Sodium (Lovenox) 40 mg SC DAILY [facility] PRN Reason: Protocol Last Admin: 10/02/16 09:10 Dose: Not Given Folic Acid (Folic Acid) 2 mg PO BID [facility] Last Admin: 10/04/16 08:52 Dose: 2 mg Furosemide (Lasix) 40 mg PO DAILY [facility] Last Admin: 10/04/16 08:53 Dose: 40 mg Gabapentin (Neurontin) 100 mg PO DAILY [facility] Last Admin: 10/04/16 08:52 Dose: 100 mg Gabapentin (Neurontin) 300 mg PO HS [facility] Last Admin: 10/03/16 21:04 Dose: 300 mg Hydroxychloroquine Sulfate (Plaquenil) 400 mg PO DAILY [facility] Last Admin: 10/04/16 08:52 Dose: 400 mg Methylprednisolone 40 mg/ (Sodium Chloride) 50 mls @ 100 mls/hr IVPB Q12 [facility] Last Admin: 10/04/16 09:04 Dose: 100 mls/hr Lactic Acid (Lac-Hydrin 12% Lotion (225 G)) 1 applic TOP Q12 [facility] Last Admin: 10/03/16 21:13 Dose: 1 applic Methotrexate (Methotrexate) 15 mg PO QWK [facility] PRN Reason: Protocol Metoprolol Succinate (Toprol Xl) 50 mg PO DAILY [facility] Last Admin: 10/04/16 08:54 Dose: 50 mg Multivitamins/Minerals (Therapeutic-M Tab) 1 tab PO DAILY [facility] Last Admin: 10/04/16 08:53 Dose: 1 tab Nitrofurantoin Macrocrystals (Macrobid) 100 mg PO Q12 [facility] Last Admin: 10/03/16 21:04 Dose: 100 mg Nystatin (Nystatin Oral Susp) 5 ml PO QID [facility] Last Admin: 10/04/16 08:52 Dose: 5 ml Ondansetron HCl (Zofran Inj) 4 mg IVP Q6H PRN PRN Reason: Nausea/Vomiting Pantoprazole Sodium (Protonix Ec Tab) 40 mg PO DAILY [facility] Last Admin: 10/04/16 08:53 Dose: 40 mg Vitamin A (Vitamin A&D) 1 applic TP BID [facility] Last Admin: 10/03/16 17:34 Dose: 1 applic Physical Exam - Additional Findings Additional findings: Pt is asleep at this time but is srtillin rspitory distress neck; supple, no adenopathy Chest; Air entry very poor bilaterally Heart; RSR,gr 2/6 murmur Abdomen; Soft, no mass, no h.s megaly. Results - Vital Signs Recent Vital Signs: Last Vital Signs Temp 97.9 F 10/04/16 08:04 Pulse 63 10/04/16 08:54 Resp 18 10/04/16 08:04 BP 131/52 L 10/04/16 08:54 Pulse Ox 99 10/04/16 08:04 - Labs Result Diagrams: 10/03/16 06:15 10/03/16 06:15 Labs: Laboratory Results - last 24 hr 10/03/16 06:15 Neutrophils % (Manual) 88 H Lymphocytes % (Manual) 1 L Reactive Lymphs % 2 H Monocytes % (Manual) 9 Nucleated RBC % 1 H Platelet Estimate Normal Large Platelets Present Hypochromasia (manual) Slight Anisocytosis (manual) Slight Macrocytosis (manual) Moderate Tear Drop Cells Slight Ovalocytes Slight Schistocytes Slight Assessment & Plan - Assessment and Plan (Free Text) Assessment: Impression; Squamous cell cancer COPD with acute exacerbation Plan: Plan; Will await result of the markers from the biopsy done at [facility]. - Date & Time Date: 10/04/16 Time: 10:46
--- NOTE | 2016-10-04 11:05 | CP.PCM.PN ---
Subjective - Date & Time of Evaluation Date of Evaluation: 10/04/16 Time of Evaluation: 10:43 - Subjective Subjective: Discussed with Heme/Onc this morning. Still waiting for more information from [place]. Continues use of NPPV mask ventilation, but CO2 remains very elevated. Objective - Vital Signs/Intake and Output Vital Signs (last 24 hours): Temp Pulse Resp BP Pulse Ox 97.9 F 63 18 131/52 L 99 10/04/16 08:04 10/04/16 08:54 10/04/16 08:04 10/04/16 08:54 10/04/16 08:04 - Medications Medications: Current Medications Acetaminophen (Tylenol 325mg Tab) 650 mg PO Q6H PRN PRN Reason: Fever >100.4 F Acetaminophen (Tylenol 325mg Tab) 650 mg PO Q6H PRN PRN Reason: Pain, Mild (1-3) Acetazolamide (Diamox Sequels 500 Mg Sr Cap) 500 mg PO Q12 [facility] Last Admin: 10/04/16 08:53 Dose: 500 mg Albuterol Sulfate (Albuterol 0.083% Inhal Janice (2.5 Mg/3 Ml) Ud) 2.5 mg INH RQ4 PRN PRN Reason: Shortness of Breath Last Admin: 10/04/16 03:51 Dose: 2.5 mg Albuterol/Ipratropium (Duoneb 3 Mg/0.5 Mg (3 Ml) Ud) 3 ml INH RQID [facility] Last Admin: 10/04/16 07:35 Dose: 3 ml Aspirin (Aspirin Chewable) 81 mg PO DAILY [facility] Last Admin: 10/04/16 08:54 Dose: 81 mg Atorvastatin Calcium (Lipitor) 10 mg PO HS [facility] Last Admin: 10/03/16 21:04 Dose: 10 mg Cholecalciferol (Vitamin D) 2,000 iu PO DAILY [facility] Last Admin: 10/03/16 09:34 Dose: 2,000 iu Clotrimazole (Lotrimin 1% Cream) 1 applic TOP BID [facility] Last Admin: 10/04/16 08:53 Dose: 1 applic Enoxaparin Sodium (Lovenox) 40 mg SC DAILY [facility] PRN Reason: Protocol Last Admin: 10/02/16 09:10 Dose: Not Given Folic Acid (Folic Acid) 2 mg PO BID [facility] Last Admin: 10/04/16 08:52 Dose: 2 mg Furosemide (Lasix) 40 mg PO DAILY [facility] Last Admin: 10/04/16 08:53 Dose: 40 mg Gabapentin (Neurontin) 100 mg PO DAILY [facility] Last Admin: 10/04/16 08:52 Dose: 100 mg Gabapentin (Neurontin) 300 mg PO HS [facility] Last Admin: 10/03/16 21:04 Dose: 300 mg Hydroxychloroquine Sulfate (Plaquenil) 400 mg PO DAILY [facility] Last Admin: 10/04/16 08:52 Dose: 400 mg Methylprednisolone 40 mg/ (Sodium Chloride) 50 mls @ 100 mls/hr IVPB Q12 [facility] Last Admin: 10/04/16 09:04 Dose: 100 mls/hr Lactic Acid (Lac-Hydrin 12% Lotion (225 G)) 1 applic TOP Q12 [facility] Last Admin: 10/03/16 21:13 Dose: 1 applic Methotrexate (Methotrexate) 15 mg PO QWK [facility] PRN Reason: Protocol Metoprolol Succinate (Toprol Xl) 50 mg PO DAILY [facility] Last Admin: 10/04/16 08:54 Dose: 50 mg Multivitamins/Minerals (Therapeutic-M Tab) 1 tab PO DAILY [facility] Last Admin: 10/04/16 08:53 Dose: 1 tab Nitrofurantoin Macrocrystals (Macrobid) 100 mg PO Q12 [facility] Last Admin: 10/03/16 21:04 Dose: 100 mg Nystatin (Nystatin Oral Susp) 5 ml PO QID [facility] Last Admin: 10/04/16 08:52 Dose: 5 ml Ondansetron HCl (Zofran Inj) 4 mg IVP Q6H PRN PRN Reason: Nausea/Vomiting Pantoprazole Sodium (Protonix Ec Tab) 40 mg PO DAILY [facility] Last Admin: 10/04/16 08:53 Dose: 40 mg Vitamin A (Vitamin A&D) 1 applic TP BID [facility] Last Admin: 10/03/16 17:34 Dose: 1 applic - Labs Labs: 10/03/16 06:15 10/03/16 06:15 Assessment and Plan (1) Acute on chronic respiratory failure with hypoxia and hypercapnia Status: Chronic (2) 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
[2016-10-04 13:15] LABS: ABG ALLEN TEST YES; ARTERIAL BLOOD GAS HCO3 48.2 mmol/L (21-28); ARTERIAL BLOOD GAS HEMOGLOBIN 11.5 g/dL (11.7-17.4); ARTERIAL BLOOD GAS O2 CAPACITY 15.2 mL/dL (16-24); ARTERIAL BLOOD GAS O2 SAT 98.5 % (95-98); ARTERIAL BLOOD GAS PCO2 115 mm/Hg (35-45); ARTERIAL BLOOD GAS PH 7.34 (7.35-7.45); ARTERIAL BLOOD GAS PO2 69 mm/Hg (80-100); ARTERIAL BLOOD GAS TCO2 65.5 mmol/L (22-28)
[2016-10-04 16:13] VITALS: RESP 20
--- NOTE | 2016-10-04 17:32 | CP.PCM.PN ---
Subjective - Date & Time of Evaluation Date of Evaluation: 10/04/16 Time of Evaluation: 15:30 - Subjective Subjective: Pt seen and examined. Appeared lethargic earlier but after resetting BIPAP she became more alert. Objective - Vital Signs/Intake and Output Vital Signs (last 24 hours): Temp Pulse Resp BP Pulse Ox 97.3 F L 95 H 20 115/69 67 L 10/04/16 16:12 10/04/16 16:28 10/04/16 16:12 10/04/16 16:12 10/04/16 16:12 - Medications Medications: Current Medications Acetaminophen (Tylenol 325mg Tab) 650 mg PO Q6H PRN PRN Reason: Fever >100.4 F Acetaminophen (Tylenol 325mg Tab) 650 mg PO Q6H PRN PRN Reason: Pain, Mild (1-3) Acetazolamide (Diamox Sequels 500 Mg Sr Cap) 500 mg PO Q12 [facility] Last Admin: 10/04/16 08:53 Dose: 500 mg Albuterol Sulfate (Albuterol 0.083% Inhal Janice (2.5 Mg/3 Ml) Ud) 2.5 mg INH RQ4 PRN PRN Reason: Shortness of Breath Last Admin: 10/04/16 03:51 Dose: 2.5 mg Albuterol/Ipratropium (Duoneb 3 Mg/0.5 Mg (3 Ml) Ud) 3 ml INH RQID [facility] Last Admin: 10/04/16 15:39 Dose: 3 ml Aspirin (Aspirin Chewable) 81 mg PO DAILY [facility] Last Admin: 10/04/16 08:54 Dose: 81 mg Atorvastatin Calcium (Lipitor) 10 mg PO HS [facility] Last Admin: 10/03/16 21:04 Dose: 10 mg Cholecalciferol (Vitamin D) 2,000 iu PO DAILY [facility] Last Admin: 10/04/16 08:30 Dose: 2,000 iu Clotrimazole (Lotrimin 1% Cream) 1 applic TOP BID [facility] Last Admin: 10/04/16 17:06 Dose: 1 applic Enoxaparin Sodium (Lovenox) 40 mg SC DAILY [facility] PRN Reason: Protocol Last Admin: 10/02/16 09:10 Dose: Not Given Folic Acid (Folic Acid) 2 mg PO BID [facility] Last Admin: 10/04/16 17:05 Dose: 2 mg Furosemide (Lasix) 40 mg PO DAILY [facility] Last Admin: 10/04/16 08:53 Dose: 40 mg Gabapentin (Neurontin) 100 mg PO DAILY [facility] Last Admin: 10/04/16 08:52 Dose: 100 mg Gabapentin (Neurontin) 300 mg PO HS [facility] Last Admin: 10/03/16 21:04 Dose: 300 mg Hydroxychloroquine Sulfate (Plaquenil) 400 mg PO DAILY [facility] Last Admin: 10/04/16 08:52 Dose: 400 mg Methylprednisolone 40 mg/ (Sodium Chloride) 50 mls @ 100 mls/hr IVPB Q12 [facility] Last Admin: 10/04/16 09:04 Dose: 100 mls/hr Lactic Acid (Lac-Hydrin 12% Lotion (225 G)) 1 applic TOP Q12 [facility] Last Admin: 10/04/16 09:00 Dose: 1 applic Methotrexate (Methotrexate) 15 mg PO QWK [facility] PRN Reason: Protocol Metoprolol Succinate (Toprol Xl) 50 mg PO DAILY [facility] Last Admin: 10/04/16 08:54 Dose: 50 mg Modafinil (Provigil) 100 mg PO DAILY [facility] Last Admin: 10/04/16 14:29 Dose: 100 mg Multivitamins/Minerals (Therapeutic-M Tab) 1 tab PO DAILY [facility] Last Admin: 10/04/16 08:53 Dose: 1 tab Nitrofurantoin Macrocrystals (Macrobid) 100 mg PO Q12 [facility] Last Admin: 10/04/16 12:42 Dose: 100 mg Nystatin (Nystatin Oral Susp) 5 ml PO QID [facility] Last Admin: 10/04/16 17:07 Dose: 5 ml Ondansetron HCl (Zofran Inj) 4 mg IVP Q6H PRN PRN Reason: Nausea/Vomiting Pantoprazole Sodium (Protonix Ec Tab) 40 mg PO DAILY [facility] Last Admin: 10/04/16 08:53 Dose: 40 mg Vitamin A (Vitamin A&D) 1 applic TP BID [facility] Last Admin: 10/04/16 17:22 Dose: 1 applic - Labs Labs: 10/03/16 06:15 10/03/16 06:15 - Constitutional Appears: No Acute Distress - Head Exam Head Exam: ATRAUMATIC - Eye Exam Eye Exam: absent: Scleral icterus - ENT Exam ENT Exam: Mucous Membranes Moist - Neck Exam Neck Exam: absent: Meningismus - Respiratory Exam Respiratory Exam: absent: Decreased Breath Sounds, Wheezes - Cardiovascular Exam Cardiovascular Exam: REGULAR RHYTHM, +S1, +S2 - GI/Abdominal Exam GI & Abdominal Exam: Soft. absent: Tenderness - Rectal Exam Rectal Exam: Deferred - Neurological Exam Neurological Exam: Alert - Psychiatric Exam Psychiatric exam: Normal Affect - Skin Skin Exam: Dry, Erythema Assessment and Plan - Assessment and Plan (Free Text) Assessment: 66 yo female wth history Severe COPD, CHF, HTN, HLD, RA, Chronic Leg Edema, PVD , MAT, recently diagnosed with squamous cell carcinoma of the lung with metastasis, Chronic Resp Insuff on home Oxygen and Bipap admitted to ICU for Acute on Chronic Resp Failure, COPD exacerbation and Pneumonia. Patient is a chronic CO2 retainer with PCO2 baseline of 80. She placed on Bipap and started on Duonebs, Solumedrol and IV antibiotics. Patient improved and was transferred to ICU for continuation of IV antibiotics, steroid and PT. 1. Acute on Chronic Respiratory Failure with Hypoxia and Hypercapnea likely sec to COPD Exacerbation continue Bipap and O2 via [place] pulmonary consult- Dr. Yusuf cont Solumedrol IV, Duonebs, Acetazolamide Vancomycin and Zosyn were discontinued by Pulmonary on 10/01/16. She has a Right Arm PICC Line. 2. Metastatic squamous cell carcinoma of the lung Patient is being followed up in [facility] Recent PET scan showed metastatic disease Oncology- Dr Foreman consult 3. Altered mental status secondary to CO2 narcosis Improved At present awake , alert and oriented BIPAP reset to 20 IPAP; 6 EPAP; 50% FIO2; 20 rate 4. Bilateral pneumonia received Vancomycin and Zosyn discontinued by Pulmonary on 10/02/16 after 9 days of treatment 5. Multifocal Atrial Tachycardia and Episode of A Fib ASA 81 mg PO 1x/day Metoprolol 50 mg PO daily follows with Dr. Cole, cardiology as an outpatient currently not on anticoagulation 6. Chronic CHF (congestive heart failure), Diastolic Dysfunction/Pulm HTN Continue Metoprolol and Lasix 7. HTN (hypertension) BP stable on Metoprolol 8. Hyperlipidemia Atorvastatin 10 mg PO QHS 9. GERD (gastroesophageal reflux disease) Protonix 40 mg 10. Rheumatoid arthritis/Peripheral Neuropathy of Bilateral Feet History Interstitial Lung Disease Methotrexate 15 mg PO every Saturday Folic Acid 2 mg PO BID Plaquenil 400 mg PO daily Gabapentin 11. Peripheral Vascular Disease/Chronic Venous Insufficiency With chronic LE edema and venous stasis With cyanosis of her toes bilaterally and cool to touch Lac-hydrin lotion to dry skin LE Continue ASA 12. UTI Urine culture positive for Enteroccocus faecalis (09/24/16) Currently on Macrobid 13. DVT prophylaxis Lovenox 40mg SC daily
[2016-10-05 05:37] VITALS: O2SAT 96
[2016-10-05] MEDS: Albuterol-Ipratrop 3 mg / 0.5 (3 ml) UD INH SCH ×2 (07:32→11:25)
[2016-10-05 08:27] VITALS: BP 114/58; TEMP 97
[2016-10-05] MEDS: Nystatin 100,000 Units/ml Oral Susp 5 ml UD PO SCH ×2 (09:15→12:51)
[2016-10-05] MEDS: Multivitamin With Minerals Tab PO SCH (09:16)
[2016-10-05] MEDS: Pantoprazole 40 mg EC Tab PO SCH (09:16)
[2016-10-05] MEDS: acetaZOLAMIDE 500 mg SR Cap PO SCH (09:16)
[2016-10-05] MEDS: Metoprolol Succinate 50 mg XL Tab PO SCH (09:17)
[2016-10-05 09:18] VITALS: PULSE 78
[2016-10-05] MEDS: Vitamin A/D oint 60G TP SCH (09:19)
[2016-10-05] MEDS: methylPREDNISolone 40 MG in Sodium Chloride 0.9% 50 ML IVPB SCH (09:20)
--- NOTE | 2016-10-05 12:15 | CP.PCM.PN ---
Subjective - Date & Time of Evaluation Date of Evaluation: 10/05/16 Time of Evaluation: 12:12 - Subjective Subjective: Failed to maintain adequate ventilation with PaCO2 again 115mmHg. SpO2 is borderline okay and pH is mildly acidotic. Daytime somnolence has increased again also. She will need to be transferred back to the emergency room and readmitted to hospital for further respiratory measures and closer monitoring. Objective - Vital Signs/Intake and Output Vital Signs (last 24 hours): Temp Pulse Resp BP Pulse Ox 97.0 F L 78 20 114/58 L 96 10/05/16 08:26 10/05/16 09:17 10/05/16 08:26 10/05/16 09:17 10/05/16 08:26 - Medications Medications: Current Medications Acetaminophen (Tylenol 325mg Tab) 650 mg PO Q6H PRN PRN Reason: Fever >100.4 F Acetaminophen (Tylenol 325mg Tab) 650 mg PO Q6H PRN PRN Reason: Pain, Mild (1-3) Acetazolamide (Diamox Sequels 500 Mg Sr Cap) 500 mg PO Q12 [facility] Last Admin: 10/05/16 09:16 Dose: 500 mg Albuterol Sulfate (Albuterol 0.083% Inhal Janice (2.5 Mg/3 Ml) Ud) 2.5 mg INH RQ4 PRN PRN Reason: Shortness of Breath Last Admin: 10/04/16 03:51 Dose: 2.5 mg Albuterol/Ipratropium (Duoneb 3 Mg/0.5 Mg (3 Ml) Ud) 3 ml INH RQID [facility] Last Admin: 10/05/16 11:25 Dose: 3 ml Aspirin (Aspirin Chewable) 81 mg PO DAILY [facility] Last Admin: 10/05/16 09:18 Dose: 81 mg Atorvastatin Calcium (Lipitor) 10 mg PO HS [facility] Last Admin: 10/04/16 22:29 Dose: 10 mg Cholecalciferol (Vitamin D) 2,000 iu PO DAILY [facility] Last Admin: 10/05/16 09:16 Dose: 2,000 iu Clotrimazole (Lotrimin 1% Cream) 1 applic TOP BID [facility] Last Admin: 10/05/16 09:20 Dose: 1 applic Enoxaparin Sodium (Lovenox) 40 mg SC DAILY [facility] PRN Reason: Protocol Last Admin: 10/02/16 09:10 Dose: Not Given Folic Acid (Folic Acid) 2 mg PO BID [facility] Last Admin: 10/05/16 09:16 Dose: 2 mg Furosemide (Lasix) 40 mg PO DAILY [facility] Last Admin: 10/05/16 09:17 Dose: 40 mg Gabapentin (Neurontin) 100 mg PO DAILY [facility] Last Admin: 10/05/16 09:18 Dose: 100 mg Gabapentin (Neurontin) 300 mg PO HS [facility] Last Admin: 10/04/16 22:29 Dose: 300 mg Hydroxychloroquine Sulfate (Plaquenil) 400 mg PO DAILY [facility] Last Admin: 10/05/16 09:17 Dose: 400 mg Methylprednisolone 40 mg/ (Sodium Chloride) 50 mls @ 100 mls/hr IVPB Q12 [facility] Last Admin: 10/05/16 09:20 Dose: 100 mls/hr Lactic Acid (Lac-Hydrin 12% Lotion (225 G)) 1 applic TOP Q12 [facility] Last Admin: 10/05/16 09:20 Dose: 1 applic Methotrexate (Methotrexate) 15 mg PO QWK [facility] PRN Reason: Protocol Metoprolol Succinate (Toprol Xl) 50 mg PO DAILY [facility] Last Admin: 10/05/16 09:17 Dose: 50 mg Modafinil (Provigil) 100 mg PO DAILY [facility] Last Admin: 10/05/16 09:26 Dose: 100 mg Multivitamins/Minerals (Therapeutic-M Tab) 1 tab PO DAILY [facility] Last Admin: 10/05/16 09:16 Dose: 1 tab Nitrofurantoin Macrocrystals (Macrobid) 100 mg PO Q12 [facility] Last Admin: 10/05/16 09:18 Dose: 100 mg Nystatin (Nystatin Oral Susp) 5 ml PO QID [facility] Last Admin: 10/05/16 09:15 Dose: 5 ml Ondansetron HCl (Zofran Inj) 4 mg IVP Q6H PRN PRN Reason: Nausea/Vomiting Pantoprazole Sodium (Protonix Ec Tab) 40 mg PO DAILY [facility] Last Admin: 10/05/16 09:16 Dose: 40 mg Vitamin A (Vitamin A&D) 1 applic TP BID [facility] Last Admin: 10/05/16 09:19 Dose: 1 applic - Labs Labs: 10/03/16 06:15 10/03/16 06:15 Assessment and Plan (1) Acute on chronic respiratory failure with hypoxia and hypercapnia Status: Chronic (2) 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
--- NOTE | 2016-10-05 12:34 | CP.PCM.DIS ---
Provider - Provider Date of Admission: 09/29/16 12:29 Attending physician: Julisa Glover MD Time Spent in preparation of Discharge (in minutes): 30 Diagnosis - Discharge Diagnosis (1) CO2 narcosis Status: Acute Priority: High (2) COPD exacerbation Status: Acute Priority: High Hospital Course - Lab Results Lab Results: Micro Results 10/02/16 18:43 Urine,Clean Catch Urine Culture - Final Yeast Species Most Recent Lab Values WBC 12.1 K/uL (4.8-10.8) H 10/03/16 06:15 RBC 3.33 Mil/uL (3.80-5.20) L 10/03/16 06:15 Hgb 10.9 g/dL (12.0-16.0) L 10/03/16 06:15 Hct 35.7 % (34.0-47.0) 10/03/16 06:15 MCV 107.1 fl (81.0-99.0) H 10/03/16 06:15 MCH 32.8 pg (27.0-31.0) H 10/03/16 06:15 MCHC 30.7 g/dL (33.0-37.0) L 10/03/16 06:15 RDW 16.3 % (11.5-14.5) H 10/03/16 06:15 Plt Count 144 K/uL (130-400) 10/03/16 06:15 MPV 9.7 fl (7.2-11.7) 10/03/16 06:15 Neut % (Auto) 93.9 % (50.0-75.0) H 10/03/16 06:15 Lymph % (Auto) 1.4 % (20.0-40.0) L 10/03/16 06:15 [place] % (Auto) 4.3 % (0.0-10.0) 10/03/16 06:15 Eos % (Auto) 0.0 % (0.0-4.0) 10/03/16 06:15 Baso % (Auto) 0.4 % (0.0-2.0) 10/03/16 06:15 Neut # 11.3 K/uL (1.8-7.0) H 10/03/16 06:15 Lymph # 0.2 K/uL (1.0-4.3) L 10/03/16 06:15 [place] # 0.5 K/uL (0.0-0.8) 10/03/16 06:15 Eos # 0.0 K/uL (0.0-0.7) 10/03/16 06:15 Baso # 0.0 K/uL (0.0-0.2) 10/03/16 06:15 Neutrophils % (Manual) 88 % (42-75) H 10/03/16 06:15 Lymphocytes % (Manual) 1 % (20-50) L 10/03/16 06:15 Reactive Lymphs % 2 % (0-0) H 10/03/16 06:15 Monocytes % (Manual) 9 % (0-10) 10/03/16 06:15 Nucleated RBC % 1 % (0-0) H 10/03/16 06:15 Platelet Estimate Normal (NORMAL) 10/03/16 06:15 Large Platelets Present 10/03/16 06:15 Hypochromasia (manual) Slight 10/03/16 06:15 Anisocytosis (manual) Slight 10/03/16 06:15 Macrocytosis (manual) Moderate 10/03/16 06:15 Tear Drop Cells Slight 10/03/16 06:15 Ovalocytes Slight 10/03/16 06:15 Schistocytes Slight 10/03/16 06:15 pCO2 115 mm/Hg (35-45) H* 10/04/16 13:10 pO2 69 mm/Hg (80-100) L 10/04/16 13:10 HCO3 48.2 mmol/L (21-28) H* 10/04/16 13:10 ABG pH 7.34 (7.35-7.45) L 10/04/16 13:10 ABG Total CO2 65.5 mmol/L (22-28) H 10/04/16 13:10 ABG O2 Saturation 98.5 % (95-98) H 10/04/16 13:10 ABG O2 Content 15.0 ML/dL (15-23) 10/04/16 13:10 ABG Base Excess 30.0 mmol/L (-2.0-3.0) H 10/04/16 13:10 ABG Hemoglobin 11.5 g/dL (11.7-17.4) L 10/04/16 13:10 ABG Carboxyhemoglobin 4.0 % (0.5-1.5) H 10/04/16 13:10 POC ABG HHb (Measured) 1.4 % (0.0-5.0) 10/04/16 13:10 ABG Methemoglobin 2.1 % (0.0-3.0) 10/04/16 13:10 ABG O2 Capacity 15.2 mL/dL (16-24) L 10/04/16 13:10 Jorge Luis Test Yes 10/04/16 13:10 A-a O2 Difference 144.0 mm/Hg 10/04/16 13:10 Hgb O2 Saturation 92.5 % (95.0-98.0) L 10/04/16 13:10 FiO2 50.0 % 10/04/16 13:10 Crit Value Called To Yomaira plata 10/04/16 13:10 Crit Value Called By 10/04/16 13:10 Crit Value Read Back Y 10/04/16 13:10 Blood Gas Notified Time 1314 10/04/16 13:10 Sodium 142 mmol/l (132-148) 10/03/16 06:15 Potassium 4.0 MMOL/L (3.6-5.0) 10/03/16 06:15 Chloride 91 mmol/L (98-107) L 10/03/16 06:15 Carbon Dioxide 49 mmol/L (22-30) H* 10/03/16 06:15 Anion Gap 6 (10-20) L 10/03/16 06:15 BUN 14 mg/dl (7-17) 10/03/16 06:15 Creatinine 0.7 mg/dL (0.7-1.2) 10/03/16 06:15 Est GFR ( Amer) > 60 10/03/16 06:15 Est GFR (Non-Af Amer) > 60 10/03/16 06:15 Random Glucose 161 mg/dL (65-105) H 10/03/16 06:15 Calcium 9.6 mg/dL (8.4-10.2) 10/03/16 06:15 Phosphorus 3.9 mg/dl (2.5-4.5) 10/03/16 06:15 Magnesium 2.3 MG/DL (1.6-2.3) 10/03/16 06:15 Total Bilirubin 0.7 mg/dl (0.2-1.3) 10/03/16 06:15 AST 39 U/L (14-36) H 10/03/16 06:15 ALT 77 U/L (9-52) H D 10/03/16 06:15 Alkaline Phosphatase 69 U/L (38-126) 10/03/16 06:15 Total Protein 5.7 G/DL (6.3-8.2) L 10/03/16 06:15 Albumin 3.2 g/dL (3.5-5.0) L 10/03/16 06:15 Globulin 2.5 gm/dL (2.2-3.9) 10/03/16 06:15 Albumin/Globulin Ratio 1.3 (1.0-2.1) 10/03/16 06:15 - Hospital Course Hospital Course: 66 yo female wth history Severe COPD, CHF, HTN, HLD, RA, Chronic Leg Edema, PVD , MAT, recently diagnosed with squamous cell carcinoma of the lung with metastasis, Chronic Resp Insuff on home Oxygen and Bipap admitted to ICU for Acute on Chronic Resp Failure, COPD exacerbation and Pneumonia. Patient is a chronic CO2 retainer with PCO2 baseline of 80. She placed on Bipap and started on Duonebs, Solumedrol and IV antibiotics. Patient improved and was transferred to ICU for continuation of IV antibiotics, steroid and PT. patient mildly acidotic, paco2 115, mild co2 narcosis, will transfer to ER for admission to ICU for further management and treatment. Patient seen by Dr. Yusuf 1. Acute on Chronic Respiratory Failure with Hypoxia and Hypercapnea likely sec to COPD Exacerbation continue Bipap and O2 via [place] pulmonary consult- Dr. Yusuf cont Solumedrol IV, Duonebs, Acetazolamide Vancomycin and Zosyn were discontinued by Pulmonary on 10/01/16. She has a Right Arm PICC Line. 2. Metastatic squamous cell carcinoma of the lung Patient is being followed up in [facility] Recent PET scan showed metastatic disease Oncology- Dr Foreman consult 3. Altered mental status secondary to CO2 narcosis Improved At present awake , alert and oriented BIPAP reset to 20 IPAP; 6 EPAP; 50% FIO2; 20 rate 4. Bilateral pneumonia received Vancomycin and Zosyn discontinued by Pulmonary on 10/02/16 after 9 days of treatment 5. Multifocal Atrial Tachycardia and Episode of A Fib ASA 81 mg PO 1x/day Metoprolol 50 mg PO daily follows with Dr. Cole, cardiology as an outpatient currently not on anticoagulation 6. Chronic CHF (congestive heart failure), Diastolic Dysfunction/Pulm HTN Continue Metoprolol and Lasix 7. HTN (hypertension) BP stable on Metoprolol 8. Hyperlipidemia Atorvastatin 10 mg PO QHS 9. GERD (gastroesophageal reflux disease) Protonix 40 mg 10. Rheumatoid arthritis/Peripheral Neuropathy of Bilateral Feet History Interstitial Lung Disease Methotrexate 15 mg PO every Saturday Folic Acid 2 mg PO BID Plaquenil 400 mg PO daily Gabapentin 11. Peripheral Vascular Disease/Chronic Venous Insufficiency With chronic LE edema and venous stasis With cyanosis of her toes bilaterally and cool to touch Lac-hydrin lotion to dry skin LE Continue ASA 12. UTI Urine culture positive for Enteroccocus faecalis (09/24/16) Currently on Macrobid 13. DVT prophylaxis Lovenox 40mg SC daily Discharge Exam - Head Exam Head Exam: ATRAUMATIC, NORMOCEPHALIC - Eye Exam Eye Exam: EOMI, Normal appearance, PERRL - ENT Exam ENT Exam: Mucous Membranes Moist, Normal Oropharynx - Respiratory Exam Respiratory Exam: Decreased Breath Sounds, NORMAL BREATHING PATTERN - Cardiovascular Exam Cardiovascular Exam: RRR, +S1, +S2 - GI/Abdominal Exam GI & Abdominal Exam: Normal Bowel Sounds, Soft. absent: Organomegaly, Tenderness - Extremities Exam Extremities exam: normal capillary refill, pedal pulses present - Back Exam Back exam: absent: CVA tenderness (L), CVA tenderness (R) - Neurological Exam Neurological exam: Alert, Altered - Psychiatric Exam Psychiatric exam: Normal Affect, Normal Mood - Skin Skin Exam: Dry, Warm Discharge Plan - Follow Up Plan Condition: GOOD Disposition: HOME/ ROUTINE
== END 2016-10-05 13:15 | disposition short-term general hospital (02) | DRG 190 ==
LOC: H.TCU 12:29
PROVIDERS: ADMIT Internal Medicine; ATTEND Internal Medicine
PROC: 3E03329 Introduction of Other Anti-infective into Peripheral Vein, Percutaneous Approach (ICD-10-PCS; principal; 2016-09-29)
PROC: 5A09557 Assistance with Respiratory Ventilation, Greater than 96 Consecutive Hours, Continuous Positive Airway Pressure (ICD-10-PCS; 2016-09-29)
DX: J44.0 Chronic obstructive pulmonary disease with (acute) lower respiratory infection (principal); J18.9 Pneumonia, unspecified organism; J96.21 Acute and chronic respiratory failure with hypoxia; I11.0 Hypertensive heart disease with heart failure; E87.2 Acidosis; I27.2 Other secondary pulmonary hypertension; I50.32 Chronic diastolic (congestive) heart failure; C79.9 Secondary malignant neoplasm of unspecified site; D64.9 Anemia, unspecified; C34.92 Malignant neoplasm of unspecified part of left bronchus or lung; J96.22 Acute and chronic respiratory failure with hypercapnia; J93.82 Other air leak; N39.0 Urinary tract infection, site not specified; E78.00 Pure hypercholesterolemia, unspecified; E78.5 Hyperlipidemia, unspecified; Z79.82 Long term (current) use of aspirin; I48.91 Unspecified atrial fibrillation; E11.42 Type 2 diabetes mellitus with diabetic polyneuropathy; E11.51 Type 2 diabetes mellitus with diabetic peripheral angiopathy without gangrene; I87.2 Venous insufficiency (chronic) (peripheral); I87.8 Other specified disorders of veins; J44.1 Chronic obstructive pulmonary disease with (acute) exacerbation; K21.9 Gastro-esophageal reflux disease without esophagitis; M06.9 Rheumatoid arthritis, unspecified; Z79.899 Other long term (current) drug therapy; Z87.01 Personal history of pneumonia (recurrent); Z87.891 Personal history of nicotine dependence; Z90.49 Acquired absence of other specified parts of digestive tract; Z99.81 Dependence on supplemental oxygen

== ENCOUNTER 2016-10-05 13:10 | Inpatient (IN) | payer MEDICARE, BC ==
[2016-10-05 13:24] VITALS: BMI 32.4
--- NOTE | 2016-10-05 13:38 | ED PDOC ---
HPI: General Adult Time Seen by Provider: 10/05/16 13:19 Chief Complaint (Nursing): Abnormal Labs Chief Complaint (Provider): elevated CO2 History Per: Other (TCU) History/Exam Limitations: clinical condition Additional Complaint(s): Erica Canchola is a 66 year old female, with a previous medical history of COPD, atrial fibrillation, CHF and diabetes, who was sent to the ED from TCU for evaluation of elevated CO2 levels of 115. Patient is unable to provide medical history due to her condition but shook her head "no" when asked if she had any medical complaints. PMD: Chapo Yusuf MD Past Medical History Reviewed: Historical Data, Nursing Documentation, Vital Signs Vital Signs: Last Vital Signs Temp 98.3 F 10/05/16 13:33 Pulse 65 10/05/16 13:54 Resp 18 10/05/16 13:54 BP 126/58 L 10/05/16 13:29 Pulse Ox 90 L 10/05/16 14:09 - Medical History PMH: Anemia, Arthritis, Atrial Fibrillation, Bronchitis, Cardia Arrhythmia (MAT) , CHF, COPD, HTN, Hypercholesterolemia, Peripheral Edema, Pneumonia, Rheumatoid Arthritis Denies: Asthma, HIV, Chronic Kidney Disease - Surgical History Surgical History: Cholecystectomy - Family History Family History: States: Unknown Family Hx - Immunization History Hx Tetanus Toxoid Vaccination: No Hx Influenza Vaccination: No Hx Pneumococcal Vaccination: No - Home Medications Home Medications: Ambulatory Orders Medication Instructions Recorded Aspirin [Aspirin Chewable] 81 mg PO DAILY #0 chew 07/15/15 Atorvastatin [Lipitor] 10 mg PO HS #0 tab 07/15/15 Gabapentin [Neurontin] 100 mg PO DAILY #0 cap 07/15/15 Gabapentin [Neurontin] 300 mg PO HS #0 cap 07/15/15 Cholecalciferol (Vitamin D3) 2,000 unit PO DAILY 04/23/16 [Vitamin D3] Hydroxychloroquine Sulfate 400 mg PO DAILY 04/23/16 [Plaquenil] Furosemide [Lasix] 40 mg PO DAILY tab 08/17/16 Multimineral/Multivitamin 1 tab PO DAILY tab 08/17/16 [Therapeutic-M Tab] Pantoprazole [Protonix EC Tab] 40 mg PO DAILY ect 08/17/16 Metoprolol Succinate [Toprol XL] 50 mg PO DAILY #30 tab 08/27/16 Ammonium Lactate 12% [Lac-Hydrin 1 applic TOP Q12 bottle 09/29/16 12% Lotion (225 g)] Clotrimazole 1% Cream [Lotrimin 1% 1 applic TOP BID 09/29/16 CREAM] Enoxaparin [Lovenox] 40 mg SC DAILY syr 09/29/16 Folic Acid 2 mg PO BID tab 09/29/16 Methotrexate 15 mg PO QWK tab 09/29/16 Ondansetron [Zofran Inj] 4 mg IVP Q6H PRN vial 09/29/16 Vitamin A/D [Vitamin A&D] 1 applic TP BID 09/29/16 acetaZOLAMIDE [Diamox Sequels 500 500 mg PO Q12H cer 09/29/16 mg SR Cap] Acetaminophen [Tylenol 325mg tab] 650 mg PO Q6H PRN 10/05/16 Acetaminophen [Tylenol 325mg tab] 650 mg PO Q6H PRN tab 10/05/16 Albuterol 0.083% [Albuterol 0.083% 2.5 mg INH RQ4 PRN 10/05/16 Inhal Janice (2.5 mg/3 ml) UD] Albuterol/Ipratropium [Duoneb 3 3 ml INH RQID 10/05/16 mg/0.5 mg (3 ml) UD] Modafinil [Provigil] 100 mg PO DAILY tab 10/05/16 Nitrofurantoin Macrocrystals 100 mg PO Q12H 10/05/16 [Macrobid] Nystatin [Nystatin Oral Susp] 5 ml PO QID 10/05/16 methylPREDNISolone [Solu-Medrol] 40 mg IVPB Q12 10/05/16 - Allergies Allergies/Adverse Reactions: Allergies Allergy/AdvReac Type Severity Reaction Status Date / Time shellfish derived Allergy RASH Verified 09/24/16 08:13 strawberry Allergy RASH Verified 09/24/16 08:13 Review of Systems Review Of Systems: ROS cannot be obtained secondary to pt's inabilty to answer questions. Physical Exam - Reviewed Nursing Documentation Reviewed: Yes Vital Signs Reviewed: Yes - Physical Exam Appears: Positive for: Well, Non-toxic, No Acute Distress Head Exam: Positive for: ATRAUMATIC, NORMAL INSPECTION, NORMOCEPHALIC Skin: Positive for: Normal Color, Warm, Dry Eye Exam: Positive for: EOMI, Normal appearance, PERRL ENT: Positive for: Normal ENT Inspection Neck: Positive for: Normal, Painless ROM Cardiovascular/Chest: Positive for: Regular Rate, Rhythm Respiratory: Positive for: Decreased Breath Sounds (bilaterally ), Accessory Muscle Use. Negative for: Respiratory Distress Gastrointestinal/Abdominal: Positive for: Normal Exam, Bowel Sounds, Soft. Negative for: Tenderness Back: Positive for: Normal Inspection Extremity: Positive for: Normal ROM. Negative for: Pedal Edema Neurologic/Psych: Positive for: Alert, Oriented - ECG O2 Sat by Pulse Oximetry: 90 Medical Decision Making Medical Decision Making: Initial Impression: Respiratory Failure Initial Plan: * labs * VBG * CXR * reevaluation Scribe Attestation: Documented by Mitali Navarro, acting as a scribe for Mae Langley MD. Provider Scribe Attestation: All medical record entries made by the Scribe were at my direction and personally dictated by me. I have reviewed the chart and agree that the record accurately reflects my personal performance of the history, physical exam, medical decision making, and the department course for this patient. I have also personally directed, reviewed, and agree with the discharge instructions and disposition. 1.45pm - case reviewed with PMD, Dr. Yusuf. Case d/w Dr. Covarrubias and Dr. Catsañeda for admission to the ICU for respiratory insufficiency with acute CO2 narcosis. Disposition - Clinical Impression Clinical Impression: Respiratory insufficiency - Patient ED Disposition Is Patient to be Admitted: Yes Doctor Will See Patient In The: Hospital - Disposition Disposition: Transfer of Care Disposition Time: 14:19 Condition: GUARDED Forms: [facility] ([place]) - Pt Status Changed To: Hospital Disposition Of: Inpatient - Admit Certification Admit to Inpatient:: After my assessment, the patient will require hospitalization for at least two midnights. This is because of the severity of symptoms shown, intensity of services needed, and/or the medical risk in this patient being treated as an outpatient. - POA Present On Arrival: None
--- NOTE | 2016-10-05 14:24 | CP.PCM.HP ---
History of Present Illness - History of Present Illness History of Present Illness: CC: transferred from TCU to ICU for CO2 narcosis and paCO2 115 66 year old female PMHx Severe COPD, CHF, HTN, HLD, RA, Chronic LE Edema, PVD, MAT, 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 Prior to TCU, she was admitted to the ICU for Acute on Chronic Resp Failure, COPD exacerbation and Pneumonia. Patient is well known to our service from prior admissions. She is a chronic CO2 retainer with PCO2 baseline 80. She will be readmitted to the ICU, she was placed Bipap in the ER with improvement of mental status, started on Duonebs, Solumedrol. Will monitor in ICU for further management and treatment. Patient primary physician and Employee Communications Manager, Dr. Yusuf. 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 Gen: WDWN, cooperative, mentation improved with BIPAP HEENT: NCAT, PERRL, EOMI, Neck: Soft, supple, no lymphadenopathy, no JVD Heart: +S1S2, RRR, No MRG Lung: CTAB, No WRR DECREASED BS Abd: soft, NT, ND, BSx4, no HSM, no masses Ext: warm, well perfused, pedal pulses intact Neuro: AAOx3, Strength equal bilaterally UE/LE Skin: Warm, Dry, no rash Psych: Normal mood, affect with appropriate range LABS currently pending CXR also pending ASSESSMENT AND PLAN 66 year old female PMHx Severe COPD, CHF, HTN, HLD, RA, Chronic LE Edema, PVD, MAT, 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 Prior to TCU, she was admitted to the ICU for Acute on Chronic Resp Failure, COPD exacerbation and Pneumonia. Patient is well known to our service from prior admissions. She is a chronic CO2 retainer with PCO2 baseline 80. She will be readmitted to the ICU, she was placed Bipap in the ER with improvement of mental status, started on Duonebs, Solumedrol. Will monitor in ICU for further management and treatment. Patient primary physician and Employee Communications Manager, Dr. Yusuf. 1. Acute on Chronic Respiratory Failure with Hypoxia and Hypercapnea likely sec to COPD Exacerbation Patient was transferred from TCU back to ICU for CO2 retention, PACO2 115. IMPROVED with BIPAP in ER. Will continue to monitor in ICU. continue Bipap and O2 via OR pulmonary consult- Dr. Yusuf cont Solumedrol IV, Duonebs, Acetazolamide also started on Modafinil 2. Metastatic squamous cell carcinoma of the lung Patient is being followed up in [facility] Recent PET scan showed metastatic disease Oncology- Dr Foreman consult 3. Altered mental status secondary to CO2 narcosis Improved with BIPAP in ER At present awake, attempting to speak 4. Bilateral pneumonia received Vancomycin and Zosyn discontinued by Pulmonary on 10/02/16 after 9 days of treatment 5. Multifocal Atrial Tachycardia and Episode of A Fib ASA 81 mg PO 1x/day Metoprolol 50 mg PO daily follows with Dr. Cole, cardiology as an outpatient currently not on anticoagulation 6. Chronic CHF (congestive heart failure), Diastolic Dysfunction/Pulm HTN Continue Metoprolol and Lasix 7. HTN (hypertension) BP stable on Metoprolol 8. Hyperlipidemia Atorvastatin 10 mg PO QHS 9. GERD (gastroesophageal reflux disease) Protonix 40 mg 10. Rheumatoid arthritis/Peripheral Neuropathy of Bilateral Feet History Interstitial Lung Disease Methotrexate 15 mg PO every Saturday Folic Acid 2 mg PO BID Plaquenil 400 mg PO daily Gabapentin 11. Peripheral Vascular Disease/Chronic Venous Insufficiency With chronic LE edema and venous stasis With cyanosis of her toes bilaterally and cool to touch Lac-hydrin lotion to dry skin LE Continue ASA 12. UTI Urine culture positive for Enteroccocus faecalis (09/24/16) Currently on Macrobid 13. DVT prophylaxis Lovenox 40mg SC daily Present on Admission - Present on Admission Any Indicators Present on Admission: No Past Patient History - Infectious Disease Hx of Infectious Diseases: None - Tetanus Immunizations Tetanus Immunization: Unknown - Past Medical History & Family History Past Medical History?: Yes - Past Social History Smoking Status: Former Smoker - CARDIAC Hx Atrial Fibrillation: Yes Hx Cardia Arrhythmia: Yes (MAT) Hx Congestive Heart Failure: Yes Hx Hypercholesterolemia: Yes Hx Hypertension: Yes Hx Peripheral Edema: Yes - PULMONARY Hx Asthma: No Hx Bronchitis: Yes Hx Chronic Obstructive Pulmonary Disease (COPD): Yes Hx Pneumonia: Yes - NEUROLOGICAL Hx Neurological Disorder: No - HEENT Hx HEENT Problems: No - RENAL Hx Chronic Kidney Disease: No - ENDOCRINE/METABOLIC Hx Endocrine Disorders: Yes Hx Diabetes Mellitus Type 2: Yes - HEMATOLOGICAL/ONCOLOGICAL Hx Anemia: Yes Hx Human Immunodeficiency Virus (HIV): No - INTEGUMENTARY Hx Dermatological Problems: Yes Other/Comment: Chronic lower extremity changes related to dependant edema - MUSCULOSKELETAL/RHEUMATOLOGICAL Hx Arthritis: Yes Hx Rheumatoid Arthritis: Yes - GASTROINTESTINAL Hx Gastrointestinal Disorders: Yes Hx Gastroesophageal Reflux: Yes - GENITOURINARY/GYNECOLOGICAL Hx Genitourinary Disorders: No - PSYCHIATRIC Hx Psychophysiologic Disorder: No Hx Substance Use: No - SURGICAL HISTORY Hx Cholecystectomy: Yes - ANESTHESIA Hx Anesthesia: Yes Hx Anesthesia Reactions: No Hx Malignant Hyperthermia: No Meds Allergies/Adverse Reactions: Allergies Allergy/AdvReac Type Severity Reaction Status Date / Time shellfish derived Allergy RASH Verified 09/24/16 08:13 strawberry Allergy RASH Verified 09/24/16 08:13 Results - Vital Signs Recent Vital Signs: Last Vital Signs Temp 98.3 F 10/05/16 13:33 Pulse 65 10/05/16 13:54 Resp 18 10/05/16 13:54 BP 126/58 L 10/05/16 13:29 Pulse Ox 90 L 10/05/16 14:09
[2016-10-05 14:25] LABS: BASO # 0.1 K/uL (0.0-0.2); BASO % 0.4 % (0.0-2.0); HEMATOCRIT 37.7 % (34.0-47.0); LYMPH # 0.1 K/uL (1.0-4.3); MEAN CORPUSCULAR HEMOGLOBIN 32.5 pg (27.0-31.0); MEAN CORPUSCULAR HGB CONC 29.7 g/dL (33.0-37.0); MONO # 0.5 K/uL (0.0-0.8); NEUT # 11.5 K/uL (1.8-7.0); NEUT % 94.6 % (50.0-75.0); NRBC % 0.1 % (0.0-0.0); PLATELET COUNT 131 K/uL (130-400); RED CELL DISTRIBUTION WIDTH 16.6 % (11.5-14.5); WHITE BLOOD COUNT 12.2 K/uL (4.8-10.8)
[2016-10-05 14:28] LABS: VENOUS BLOOD GAS BASE EXCESS 26.7 mmol/L (0.0-2.0); VENOUS BLOOD GAS MODE BiPAP; VENOUS BLOOD GAS PCO2 123 mmHg (40-60)
[2016-10-05 14:31] LABS: MEAN CELL VOLUME 109.4 fl (81.0-99.0)
[2016-10-05 14:35] LABS: BLOOD UREA NITROGEN 24 mg/dl (7-17); CALCIUM 9.7 mg/dL (8.4-10.2); CHLORIDE 87 mmol/L (98-107); GFR AFRICAN-AMERICAN > 60; GLUCOSE,RANDOM 244 mg/dL (65-105); POTASSIUM 3.8 MMOL/L (3.6-5.0); SODIUM 142 mmol/l (132-148)
--- NOTE | 2016-10-05 14:56 | RAD ---
HISTORY: COPD. COMPARISON: 09/29/2016 FINDINGS: LUNGS: Progressive/worsening multifocal infiltrates including both upper lobes and right lower lobe. PLEURA: No significant pleural effusion identified, no pneumothorax apparent. CARDIOVASCULAR: Cardiomegaly. PICC line in satisfactory position unchanged compared to prior studies. OSSEOUS STRUCTURES: No significant abnormalities. VISUALIZED UPPER ABDOMEN: Normal. OTHER FINDINGS: None. IMPRESSION: Worsening bilateral alveolar infiltrates.
[2016-10-05 15:08] LABS: CARBON DIOXIDE 53 mmol/L (22-30)
[2016-10-05 15:23] LABS: NEUTROPHIL 94 % (42-75); TOTAL CELLS COUNTED 100
--- NOTE | 2016-10-05 16:05 | CP.CCUPN ---
CCU Subjective - Physician Review Subjective (Free Text): Consultation for ICU admission and mgmt: 66F re-admitted to ICU again for severe hypercarbia associated with mild lethargy while in TCU today. She does not appear in distress with labored breathing or using accessory muscles, nor any paradoxical abdominal breathing. No significant change in vitals seen nor any recent fever spikes. After transfer to ER for further evaluation an d placement onto BiPAP at 20/6, 50% oxygen, observed TV to be up to approx. 400 ml. No new fevers or other active concurrent illness beyond present metastatic lung CA disease, which may have now affected her ability to speak with a full voice. She denies any throat or upper airway pain, nor dysphagia, but phonation is impaired. Allergies: Shellfish, strawberries Active medications in TCU: Diamox 500mg bid, Duoneb inh, ASA, Lipitor, Vit D3, Folate, Lasix, Gabapentin, Palquenil, MTX, Solumedrol, Toprol ROS: No other pertinent negs or positives on 10+ system review. Other PMSFH: All recent nursing and physician documentation reviewed and no new information noted relevant to current problems. MAJOR IMPRESSIONS / PLAN: 1. Chronic Resp failure 2 Hypercapnia 2. Metabolic Encephalopathy 2 #1, r/o other drowsiness 2' medication effects ( Gabapentin) 3. Bacterial pneumonia / Tracheobronchitis 4. s/ p E. faecalis UTI 5. H/o Met Lung CA PLAN: 1. BiPAP support as tolerated, with reprieves off BiPAP every 4 hours if she does well. Adjust BiPAP to maintain TV at or above 300-350ml and SPO2 88-94%. 2. Follow ABGs, neuromental status. CXR reviewed ( my interp): as compared to 09/29 film, shows no new consolidation, previous interstitial changes along RLL and R mid-lung field persists as well as STEPHEN lesion. Small blunting of bilat tailer off. Official Radiological report results reviewed. 3. Continue Diamox at current dose, and consideration to increase Provigil to 200mg qd. Reduce HS Gabapentin and consider stopping AM Gabapentin if no recurrent symptoms. 4. Continue bronchodilator therapy. 5. Repeat serial Lactates till normalized, no hypoperfusional state, elevated Lactate 2 hypoxemia most likely. 6. Full Code status unless otherwise directed by . Discussed with Pulm / PMD. CCU Objective - Vital Signs / Intake & Output Vital Signs (Last 4 hours): Vital Signs Pulse Resp BP Pulse Ox 10/05/16 15:29 66 18 110/63 97 10/05/16 15:21 64 16 127/66 10/05/16 14:38 64 16 127/66 97 10/05/16 14:19 90 L 10/05/16 13:54 65 18 97 - Physical Exam Physical Exam Limitations: Positive for: Other (mild lethargy) Head: Positive for: Normocephalic Pupils: Positive for: PERRL Extroacular Muscles: Positive for: EOMI Conjunctiva: Positive for: Normal. Negative for: Icteric Mouth: Positive for: Moist Mucous Membranes. Negative for: Drooling Pharnyx: Positive for: Normal. Negative for: ERYTHEMA, EXUDATE Neck: Positive for: Normal Range of Motion. Negative for: JVD Respiratory/Chest: Positive for: Decreased Breath Sounds. Negative for: Accessory Muscle Use, Wheezes Cardiovascular: Positive for: Regular Rate and Rhythm, Normal S1, S2. Negative for: Murmurs, Rub Abdomen: Positive for: Normal Bowel Sounds. Negative for: Tenderness, Distention Lower Extremity: Negative for: Edema, CALF TENDERNESS, Cyanosis Neurological: Positive for: GCS=15, CN II-XII Intact, Motor Func Grossly Intact. Negative for: Speech Normal Skin: Positive for: Warm. Negative for: Rashes - Patient Studies Lab Studies: Lab Studies 10/05/16 10/05/16 10/05/16 Range/Units 14:20 14:17 14:17 WBC 12.2 H (4.8-10.8) K/uL RBC 3.45 L (3.80-5.20) Mil/uL Hgb 11.2 L (12.0-16.0) g/dL Hct 37.7 (34.0-47.0) % MCV 109.4 H D (81.0-99.0) fl MCH 32.5 H (27.0-31.0) pg MCHC 29.7 L (33.0-37.0) g/dL RDW 16.6 H (11.5-14.5) % Plt Count 131 (130-400) K/uL MPV 10.0 (7.2-11.7) fl Neut % (Auto) 94.6 H (50.0-75.0) % Lymph % (Auto) 1.0 L (20.0-40.0) % [place] % (Auto) 4.0 (0.0-10.0) % Eos % (Auto) 0.0 (0.0-4.0) % Baso % (Auto) 0.4 (0.0-2.0) % Neut # 11.5 H (1.8-7.0) K/uL Lymph # 0.1 L (1.0-4.3) K/uL [place] # 0.5 (0.0-0.8) K/uL Eos # 0.0 (0.0-0.7) K/uL Baso # 0.1 (0.0-0.2) K/uL Neutrophils % (Manual) 94 H (42-75) % Lymphocytes % (Manual) 2 L (20-50) % Monocytes % (Manual) 4 (0-10) % Platelet Estimate Normal (NORMAL) Hypochromasia (manual) Slight Poikilocytosis (manual Slight Anisocytosis (manual) Moderate Macrocytosis (manual) Slight pO2 31 (30-55) mm/Hg VBG pH 7.30 L (7.32-7.43) VBG pCO2 123 H* (40-60) mmHg VBG HCO3 44.5 mmol/L VBG Total CO2 64.3 H (22-28) mmol/L VBG O2 Sat (Calc) 64.2 (40-65) % VBG Base Excess 26.7 H (0.0-2.0) mmol/L VBG Potassium 3.9 (3.6-5.2) mmol/L Glucose 264 H (65-105) mg/dL Lactate 2.3 H (0.7-2.1) mmol/L FiO2 50.0 % Crit Value Called To Dr nadir beckman Crit Value Called By Rt Crit Value Read Back Y Blood Gas Notified Time 1427 Sodium 141.0 142 (132-148) mmol/l Potassium 3.8 (3.6-5.0) MMOL/L Chloride 95.0 L 87 L (98-107) mmol/L Carbon Dioxide 53 H* (22-30) mmol/L Anion Gap 6 L (10-20) BUN 24 H (7-17) mg/dl Creatinine 0.9 (0.7-1.2) mg/dL Est GFR ( Amer) > 60 Est GFR (Non-Af Amer) > 60 Random Glucose 244 H (65-105) mg/dL Calcium 9.7 (8.4-10.2) mg/dL Venous Blood Potassium 3.9 (3.6-5.2) mmol/L Laboratory Results - last 24 hr 10/05/16 10/05/16 10/05/16 14:17 14:17 14:20 WBC 12.2 H RBC 3.45 L Hgb 11.2 L Hct 37.7 MCV 109.4 H D MCH 32.5 H MCHC 29.7 L RDW 16.6 H Plt Count 131 MPV 10.0 Neut % (Auto) 94.6 H Lymph % (Auto) 1.0 L [place] % (Auto) 4.0 Eos % (Auto) 0.0 Baso % (Auto) 0.4 Neut # 11.5 H Lymph # 0.1 L [place] # 0.5 Eos # 0.0 Baso # 0.1 Neutrophils % (Manual) 94 H Lymphocytes % (Manual) 2 L Monocytes % (Manual) 4 Platelet Estimate Normal Hypochromasia (manual) Slight Poikilocytosis (manual Slight Anisocytosis (manual) Moderate Macrocytosis (manual) Slight pO2 31 VBG pH 7.30 L VBG pCO2 123 H* VBG HCO3 44.5 VBG Total CO2 64.3 H VBG O2 Sat (Calc) 64.2 VBG Base Excess 26.7 H VBG Potassium 3.9 Glucose 264 H Lactate 2.3 H FiO2 50.0 Crit Value Called To Dr nadir beckman Crit Value Called By Rt Crit Value Read Back Y Blood Gas Notified Time 1427 Sodium 142 141.0 Potassium 3.8 Chloride 87 L 95.0 L Carbon Dioxide 53 H* Anion Gap 6 L BUN 24 H Creatinine 0.9 Est GFR ( Amer) > 60 Est GFR (Non-Af Amer) > 60 Random Glucose 244 H Calcium 9.7 Venous Blood Potassium 3.9 Radiology Interpretations (Free Text): reviewed ( my interp): as compared to 09/29 film, shows no new consolidation, previous interstitial changes along RLL and R mid-lung field persists as well as STEPHEN lesion. Small blunting of bilat tailer off. Official Radiological report results reviewed. Fingerstick Blood Sugar Results: 264 Review of Systems - Review of Systems All systems: reviewed and no additional remarkable complaints except (as above.) Critical Care Progress Note - Prophylaxis GI Prophylaxis GI: Pepsid - Prophylaxis DVT Prophylaxis DVT: SCDs
[2016-10-05] MEDS ORDERED: acetaZOLAMIDE 500 mg SR Cap PO SCH (17:00)
[2016-10-05] MEDS: Nystatin 100,000 Units/ml Oral Susp 5 ml UD PO SCH ×2 (17:47→21:57)
[2016-10-05] MEDS: Albuterol-Ipratrop 3 mg / 0.5 (3 ml) UD INH SCH (19:34)
[2016-10-05] MEDS ORDERED: MethylPREDNISolone 40 mg Vial IVP SCH (22:00)
[2016-10-06 05:20] LABS: ABG ALLEN TEST YES; ABG MECHANICAL RATE 20; ARTERIAL BLOOD GAS HCO3 49.2 mmol/L (21-28); ARTERIAL BLOOD GAS MODE BiPAP; ARTERIAL BLOOD GAS PH 7.42 (7.35-7.45); ARTERIAL BLOOD GAS PO2 69 mm/Hg (80-100)
[2016-10-06 06:31] LABS: BASO % 0.1 % (0.0-2.0); HEMATOCRIT 33.9 % (34.0-47.0); LYMPH # 0.1 K/uL (1.0-4.3); LYMPH % 1.2 % (20.0-40.0); MEAN CELL VOLUME 108.3 fl (81.0-99.0); MEAN CORPUSCULAR HGB CONC 30.4 g/dL (33.0-37.0); MEAN PLATELET VOLUME 10.2 fl (7.2-11.7); MONO # 0.4 K/uL (0.0-0.8); MONO % 3.6 % (0.0-10.0); NEUT # 9.3 K/uL (1.8-7.0); NEUT % 95.1 % (50.0-75.0); NRBC % 0.1 % (0.0-0.0); PLATELET COUNT 112 K/uL (130-400); RED CELL DISTRIBUTION WIDTH 16.6 % (11.5-14.5); WHITE BLOOD COUNT 9.8 K/uL (4.8-10.8)
[2016-10-06 06:34] LABS: ALB/GLOB RATIO 1.2 (1.0-2.1); ALKALINE PHOSPHATASE 72 U/L (38-126); ALT/SGPT 67 U/L (9-52); AST/SGOT 35 U/L (14-36); BLOOD UREA NITROGEN 23 mg/dl (7-17); CALCIUM 9.4 mg/dL (8.4-10.2); CHLORIDE 88 mmol/L (98-107); GFR AFRICAN-AMERICAN > 60; GLUCOSE,RANDOM 165 mg/dL (65-105); POTASSIUM 3.3 MMOL/L (3.6-5.0); SODIUM 143 mmol/l (132-148); TOTAL PROTEIN 5.6 G/DL (6.3-8.2)
[2016-10-06 06:48] LABS: CARBON DIOXIDE 54 mmol/L (22-30)
[2016-10-06] MEDS ORDERED: Potassium Chloride 20 mEq ER Tab PO ONE (07:46)
[2016-10-06] MEDS: Albuterol-Ipratrop 3 mg / 0.5 (3 ml) UD INH SCH ×4 (08:24→19:20)
--- NOTE | 2016-10-06 08:52 | CP.CCUPN ---
CCU Subjective - Physician Review Subjective (Free Text): Awake and alert, transitioned to nasal cannula fro breakfast and destaurated from 95% to 89%, but no distress nor change in neuromental status noted, otherwise pleasant and interactive. No fever spikes, in A fib with slow VR at approx. 60. BiPAP settngs overnight were 20/6 at 50% with backup rate at 20. Average TV generated was up to 500ml. PCO2 down to 97 this Am with normal pH. ROS: No other pertinent negs or positives on 10+ system review. Other PMSFH: All recent nursing and physician documentation reviewed and no new information noted relevant to current problems. MAJOR IMPRESSIONS / PLAN: 1. Chronic Resp failure 2 Hypercapnia 2. Metabolic Encephalopathy 2 #1 3. Bacterial pneumonia / Tracheobronchitis 4. s/ p E. faecalis UTI 5. H/o Met Lung CA PLAN: 1. BiPAP support as tolerated, with reprieves off BiPAP every 4 hours if she does well. Adjust BiPAP to maintain TV above 300-400ml and SPO2 88-94%. 2. Follow ABGs, neuromental status. CXR 10/05 reviewed ( my interp): as compared to 09/29 film, shows no new consolidation, previous interstitial changes along RLL and R mid-lung field persists as well as STEPHEN lesion. 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 Official Radiological report results reviewed. Today s film is a bit more rotated and shows more interstitial changes. Discussed with Pulm: possible lung changes from Nitrofurantoin. Will stop today and re- assess for any new fevers or recurrent UTI. She has no indwelling [place] now. 3. Continue Diamox at current dose, consider adding additional dose to daily regimen as tolerated. Also, consideration to increase Provigil to 200mg qd. Discussed with Pulm. 4. Continue bronchodilator therapy. 5. Repeat serial Lactates till normalized, no hypoperfusional state, elevated Lactate 2 hypoxemia most likely. 6. Full Code status unless otherwise directed by . Discussed with Pulm / PMD. CCU Objective - Vital Signs / Intake & Output Vital Signs (Last 4 hours): Vital Signs Pulse 10/06/16 08:25 62 10/06/16 05:01 71 Intake and Output (Last 8hrs): Intake & Output 10/05/16 10/06/16 10/06/16 22:59 06:59 14:59 Intake Total 320 12 Balance 320 12 Intake: IV 30 12 Oral 290 Other: # Voids Urine, Voided 1 - Physical Exam Head: Positive for: Normocephalic Pupils: Positive for: PERRL Extroacular Muscles: Positive for: EOMI Conjunctiva: Positive for: Normal. Negative for: Icteric Mouth: Positive for: Moist Mucous Membranes. Negative for: Drooling Pharnyx: Positive for: Normal. Negative for: ERYTHEMA, EXUDATE Neck: Positive for: Normal Range of Motion. Negative for: JVD Respiratory/Chest: Positive for: Decreased Breath Sounds. Negative for: Accessory Muscle Use, Wheezes Cardiovascular: Positive for: Regular Rate and Rhythm, Normal S1, S2. Negative for: Murmurs, Rub Abdomen: Positive for: Normal Bowel Sounds. Negative for: Tenderness, Distention Upper Extremity: Positive for: Other (RUE PICC) Lower Extremity: Negative for: Edema, CALF TENDERNESS, Cyanosis Neurological: Positive for: GCS=15, CN II-XII Intact, Motor Func Grossly Intact. Negative for: Speech Normal Skin: Positive for: Warm, Other (scattered areas of ecchymoses over enteire upper arms). Negative for: Rashes - Medications Active Medications: Active Medications Generic Name Dose Route Start Last Admin Trade Name Freq PRN Reason Stop Dose Admin Acetaminophen 650 mg 10/05/16 16:41 Tylenol 325mg Tab PO Q6 PRN Fever >100.4 F Acetazolamide 500 mg 10/05/16 17:00 10/05/16 17:44 Diamox Sequels 500 Mg Sr Cap PO 500 mg BID BROWN Administration Albuterol/Ipratropium 3 ml 10/05/16 20:00 10/06/16 08:24 Duoneb 3 Mg/0.5 Mg (3 Ml) Ud INH 3 ml RQID BROWN Administration Aspirin 81 mg 10/06/16 09:00 Aspirin Chewable PO DAILY [facility] Atorvastatin Calcium 10 mg 10/06/16 09:00 Lipitor PO DAILY [facility] Cholecalciferol 2,000 iu 10/06/16 09:00 Vitamin D PO DAILY [facility] Famotidine 40 mg 10/05/16 22:00 10/05/16 21:57 Pepcid PO 40 mg HS BROWN Administration Folic Acid 2 mg 10/06/16 09:00 Folic Acid PO DAILY [facility] Furosemide 40 mg 10/05/16 16:45 10/05/16 17:46 Lasix PO 40 mg DAILY BR[facility] Administration Gabapentin 200 mg 10/05/16 22:00 10/05/16 21:56 Neurontin PO 200 mg HS BROWN Administration Hydroxychloroquine Sulfate 400 mg 10/06/16 09:00 Plaquenil PO DAILY [facility] Methylprednisolone 40 mg/ 50 mls @ 100 mls/hr 10/06/16 09:00 Sodium Chloride IVPB Q12 BROWN Metoprolol Succinate 100 mg 10/06/16 09:00 Toprol Xl PO DAILY [facility] Modafinil 100 mg 10/06/16 09:00 Provigil PO DAILY [facility] Nitrofurantoin Macrocrystals 100 mg 10/05/16 21:00 10/05/16 20:17 Macrobid PO 100 mg Q12 BROWN Administration Nystatin 5 ml 10/05/16 17:00 10/05/16 21:57 Nystatin Oral Susp PO 5 ml QID BROWN Administration Ondansetron HCl 4 mg 10/05/16 16:40 Zofran Inj IVP Q6 PRN Nausea/Vomiting - Patient Studies Lab Studies: Lab Studies 10/06/16 10/06/16 10/06/16 Range/Units 05:30 05:30 05:10 WBC 9.8 (4.8-10.8) K/uL RBC 3.13 L (3.80-5.20) Mil/uL Hgb 10.3 L (12.0-16.0) g/dL Hct 33.9 L (34.0-47.0) % MCV 108.3 H (81.0-99.0) fl MCH 33.0 H (27.0-31.0) pg MCHC 30.4 L (33.0-37.0) g/dL RDW 16.6 H (11.5-14.5) % Plt Count 112 L (130-400) K/uL MPV 10.2 (7.2-11.7) fl Neut % (Auto) 95.1 H (50.0-75.0) % Lymph % (Auto) 1.2 L (20.0-40.0) % [place] % (Auto) 3.6 (0.0-10.0) % Eos % (Auto) 0.0 (0.0-4.0) % Baso % (Auto) 0.1 (0.0-2.0) % Neut # 9.3 H (1.8-7.0) K/uL Lymph # 0.1 L (1.0-4.3) K/uL [place] # 0.4 (0.0-0.8) K/uL Eos # 0.0 (0.0-0.7) K/uL Baso # 0.0 (0.0-0.2) K/uL Neutrophils % (Manual) (42-75) % Lymphocytes % (Manual) (20-50) % Monocytes % (Manual) (0-10) % Platelet Estimate (NORMAL) Hypochromasia (manual) Poikilocytosis (manual Anisocytosis (manual) Macrocytosis (manual) pCO2 97 H* (35-45) mm/Hg pO2 69 L (30-55) mm/Hg HCO3 49.2 H* (21-28) mmol/L ABG pH 7.42 (7.35-7.45) ABG Total CO2 65.9 H (22-28) mmol/L ABG O2 Saturation 97.1 (95-98) % ABG Base Excess 31.3 H (-2.0-3.0) mmol/L Jorgel Uis Test Yes ABG Potassium 3.1 L (3.6-5.2) mmol/L VBG pH (7.32-7.43) VBG pCO2 (40-60) mmHg VBG HCO3 mmol/L VBG Total CO2 (22-28) mmol/L VBG O2 Sat (Calc) (40-65) % VBG Base Excess (0.0-2.0) mmol/L VBG Potassium (3.6-5.2) mmol/L A-a O2 Difference 166.0 mm/Hg Glucose 179 H (65-105) mg/dL Lactate 0.9 (0.7-2.1) mmol/L Vent Mode Bipap Mechanical Rate 20 FiO2 50.0 % Inspiratory BiPAP 20 Expiratory BiPAP 6 Crit Value Called To Juan Ramon rubi Crit Value Called By Tirso august Crit Value Read Back Y Blood Gas Notified Time 520 Sodium 143 142.0 (132-148) mmol/l Potassium 3.3 L (3.6-5.0) MMOL/L Chloride 88 L 93.0 L (98-107) mmol/L Carbon Dioxide 54 H* (22-30) mmol/L Anion Gap 4 L (10-20) BUN 23 H (7-17) mg/dl Creatinine 0.9 (0.7-1.2) mg/dL Est GFR ( Amer) > 60 Est GFR (Non-Af Amer) > 60 Random Glucose 165 H (65-105) mg/dL Calcium 9.4 (8.4-10.2) mg/dL Total Bilirubin 1.0 (0.2-1.3) mg/dl AST 35 (14-36) U/L ALT 67 H (9-52) U/L Alkaline Phosphatase 72 (38-126) U/L Total Protein 5.6 L (6.3-8.2) G/DL Albumin 3.1 L (3.5-5.0) g/dL Globulin 2.5 (2.2-3.9) gm/dL Albumin/Globulin Ratio 1.2 (1.0-2.1) Arterial Blood Potassium 3.1 L (3.6-5.2) mmol/L Venous Blood Potassium (3.6-5.2) mmol/L 10/05/16 10/05/16 10/05/16 Range/Units 14:20 14:17 14:17 WBC 12.2 H (4.8-10.8) K/uL RBC 3.45 L (3.80-5.20) Mil/uL Hgb 11.2 L (12.0-16.0) g/dL Hct 37.7 (34.0-47.0) % MCV 109.4 H D (81.0-99.0) fl MCH 32.5 H (27.0-31.0) pg MCHC 29.7 L (33.0-37.0) g/dL RDW 16.6 H (11.5-14.5) % Plt Count 131 (130-400) K/uL MPV 10.0 (7.2-11.7) fl Neut % (Auto) 94.6 H (50.0-75.0) % Lymph % (Auto) 1.0 L (20.0-40.0) % [place] % (Auto) 4.0 (0.0-10.0) % Eos % (Auto) 0.0 (0.0-4.0) % Baso % (Auto) 0.4 (0.0-2.0) % Neut # 11.5 H (1.8-7.0) K/uL Lymph # 0.1 L (1.0-4.3) K/uL [place] # 0.5 (0.0-0.8) K/uL Eos # 0.0 (0.0-0.7) K/uL Baso # 0.1 (0.0-0.2) K/uL Neutrophils % (Manual) 94 H (42-75) % Lymphocytes % (Manual) 2 L (20-50) % Monocytes % (Manual) 4 (0-10) % Platelet Estimate Normal (NORMAL) Hypochromasia (manual) Slight Poikilocytosis (manual Slight Anisocytosis (manual) Moderate Macrocytosis (manual) Slight pCO2 (35-45) mm/Hg pO2 31 (30-55) mm/Hg HCO3 (21-28) mmol/L ABG pH (7.35-7.45) ABG Total CO2 (22-28) mmol/L ABG O2 Saturation (95-98) % ABG Base Excess (-2.0-3.0) mmol/L Jorge Luis Test ABG Potassium (3.6-5.2) mmol/L VBG pH 7.30 L (7.32-7.43) VBG pCO2 123 H* (40-60) mmHg VBG HCO3 44.5 mmol/L VBG Total CO2 64.3 H (22-28) mmol/L VBG O2 Sat (Calc) 64.2 (40-65) % VBG Base Excess 26.7 H (0.0-2.0) mmol/L VBG Potassium 3.9 (3.6-5.2) mmol/L A-a O2 Difference mm/Hg Glucose 264 H (65-105) mg/dL Lactate 2.3 H (0.7-2.1) mmol/L Vent Mode Mechanical Rate FiO2 50.0 % Inspiratory BiPAP Expiratory BiPAP Crit Value Called To Dr nadir beckman Crit Value Called By Rt Crit Value Read Back Y Blood Gas Notified Time 1427 Sodium 141.0 142 (132-148) mmol/l Potassium 3.8 (3.6-5.0) MMOL/L Chloride 95.0 L 87 L (98-107) mmol/L Carbon Dioxide 53 H* (22-30) mmol/L Anion Gap 6 L (10-20) BUN 24 H (7-17) mg/dl Creatinine 0.9 (0.7-1.2) mg/dL Est GFR ( Amer) > 60 Est GFR (Non-Af Amer) > 60 Random Glucose 244 H (65-105) mg/dL Calcium 9.7 (8.4-10.2) mg/dL Total Bilirubin (0.2-1.3) mg/dl AST (14-36) U/L ALT (9-52) U/L Alkaline Phosphatase (38-126) U/L Total Protein (6.3-8.2) G/DL Albumin (3.5-5.0) g/dL Globulin (2.2-3.9) gm/dL Albumin/Globulin Ratio (1.0-2.1) Arterial Blood Potassium (3.6-5.2) mmol/L Venous Blood Potassium 3.9 (3.6-5.2) mmol/L Laboratory Results - last 24 hr 10/05/16 10/05/16 10/05/16 14:17 14:17 14:20 WBC 12.2 H RBC 3.45 L Hgb 11.2 L Hct 37.7 MCV 109.4 H D MCH 32.5 H MCHC 29.7 L RDW 16.6 H Plt Count 131 MPV 10.0 Neut % (Auto) 94.6 H Lymph % (Auto) 1.0 L [place] % (Auto) 4.0 Eos % (Auto) 0.0 Baso % (Auto) 0.4 Neut # 11.5 H Lymph # 0.1 L [place] # 0.5 Eos # 0.0 Baso # 0.1 Neutrophils % (Manual) 94 H Lymphocytes % (Manual) 2 L Monocytes % (Manual) 4 Platelet Estimate Normal Hypochromasia (manual) Slight Poikilocytosis (manual Slight Anisocytosis (manual) Moderate Macrocytosis (manual) Slight pCO2 pO2 31 HCO3 ABG pH ABG Total CO2 ABG O2 Saturation ABG Base Excess Jorge Luis Test ABG Potassium VBG pH 7.30 L VBG pCO2 123 H* VBG HCO3 44.5 VBG Total CO2 64.3 H VBG O2 Sat (Calc) 64.2 VBG Base Excess 26.7 H VBG Potassium 3.9 A-a O2 Difference Glucose 264 H Lactate 2.3 H Vent Mode Mechanical Rate FiO2 50.0 Inspiratory BiPAP Expiratory BiPAP Crit Value Called To Dr nadir beckman Crit Value Called By Rt Crit Value Read Back Y Blood Gas Notified Time 1427 Sodium 142 141.0 Potassium 3.8 Chloride 87 L 95.0 L Carbon Dioxide 53 H* Anion Gap 6 L BUN 24 H Creatinine 0.9 Est GFR ( Amer) > 60 Est GFR (Non-Af Amer) > 60 Random Glucose 244 H Calcium 9.7 Total Bilirubin AST ALT Alkaline Phosphatase Total Protein Albumin Globulin Albumin/Globulin Ratio Arterial Blood Potassium Venous Blood Potassium 3.9 10/06/16 10/06/16 10/06/16 05:10 05:30 05:30 WBC 9.8 RBC 3.13 L Hgb 10.3 L Hct 33.9 L MCV 108.3 H MCH 33.0 H MCHC 30.4 L RDW 16.6 H Plt Count 112 L MPV 10.2 Neut % (Auto) 95.1 H Lymph % (Auto) 1.2 L [place] % (Auto) 3.6 Eos % (Auto) 0.0 Baso % (Auto) 0.1 Neut # 9.3 H Lymph # 0.1 L [place] # 0.4 Eos # 0.0 Baso # 0.0 Neutrophils % (Manual) Lymphocytes % (Manual) Monocytes % (Manual) Platelet Estimate Hypochromasia (manual) Poikilocytosis (manual Anisocytosis (manual) Macrocytosis (manual) pCO2 97 H* pO2 69 L HCO3 49.2 H* ABG pH 7.42 ABG Total CO2 65.9 H ABG O2 Saturation 97.1 ABG Base Excess 31.3 H Jorge Luis Test Yes ABG Potassium 3.1 L VBG pH VBG pCO2 VBG HCO3 VBG Total CO2 VBG O2 Sat (Calc) VBG Base Excess VBG Potassium A-a O2 Difference 166.0 Glucose 179 H Lactate 0.9 Vent Mode Bipap Mechanical Rate 20 FiO2 50.0 Inspiratory BiPAP 20 Expiratory BiPAP 6 Crit Value Called To Juan Ramon rubi Crit Value Called By S bay Crit Value Read Back Y Blood Gas Notified Time 520 Sodium 142.0 143 Potassium 3.3 L Chloride 93.0 L 88 L Carbon Dioxide 54 H* Anion Gap 4 L BUN 23 H Creatinine 0.9 Est GFR ( Amer) > 60 Est GFR (Non-Af Amer) > 60 Random Glucose 165 H Calcium 9.4 Total Bilirubin 1.0 AST 35 ALT 67 H Alkaline Phosphatase 72 Total Protein 5.6 L Albumin 3.1 L Globulin 2.5 Albumin/Globulin Ratio 1.2 Arterial Blood Potassium 3.1 L Venous Blood Potassium Fingerstick Blood Sugar Results: 264 Critical Care Progress Note - Nutrition Nutrition: Nutrition Category Date Time Status Regular Diet [DIET] Diets 10/05/16 Dinner Active
--- NOTE | 2016-10-06 08:54 | RAD ---
HISTORY: F/U HYPERCARBIA COMPARISON: 10/05/2016 FINDINGS: LUNGS: Limited by patient obliquity. Diffuse patchy infiltrate in the right midlung zone and lower lung zone. PICC line in place. PLEURA: No significant pleural effusion identified, no pneumothorax apparent. CARDIOVASCULAR: Normal. OSSEOUS STRUCTURES: No significant abnormalities. VISUALIZED UPPER ABDOMEN: Normal. OTHER FINDINGS: None. IMPRESSION: Limited by patient obliquity. Diffuse patchy infiltrate in the right midlung zone and lower lung zone. PICC line in place.
[2016-10-06] MEDS ORDERED: methylPREDNISolone 40 MG/50ML NS IVPB SCH (09:00)
[2016-10-06] MEDS ORDERED: acetaZOLAMIDE 500 mg SR Cap PO SCH (09:00)
[2016-10-06] MEDS: Metoprolol Succinate 100 mg XL Tab PO SCH (09:35)
[2016-10-06] MEDS: Nystatin 100,000 Units/ml Oral Susp 5 ml UD PO SCH ×4 (09:42→21:02)
[2016-10-06] MEDS: methylPREDNISolone 125 MG in Sodium Chloride 0.9% 50 ML IVPB SCH ×2 (10:00→20:16)
--- NOTE | 2016-10-06 10:55 | CP.PCM.PN ---
Subjective - Date & Time of Evaluation Date of Evaluation: 10/06/16 Time of Evaluation: 10:15 - Subjective Subjective: No fever feels better Eating her breakfast now off Bipap- on High Flow Oxygen at 40L/60% FiO2 alert, oriented Family at bedside denies CP no abd pain + cough -yellowish sputum Objective - Vital Signs/Intake and Output Vital Signs (last 24 hours): Temp Pulse Resp BP Pulse Ox 97.9 F 65 22 108/53 L 95 10/06/16 08:00 10/06/16 09:35 10/06/16 09:33 10/06/16 09:41 10/06/16 08:00 Intake and Output: 10/06/16 10/06/16 06:59 18:59 Intake Total 92 Balance 92 - Medications Medications: Current Medications Acetaminophen (Tylenol 325mg Tab) 650 mg PO Q6 PRN PRN Reason: Fever >100.4 F Acetazolamide (Diamox 250 Mg Tab) 500 mg PO TID [facility] Albuterol/Ipratropium (Duoneb 3 Mg/0.5 Mg (3 Ml) Ud) 3 ml INH RQID [facility] Last Admin: 10/06/16 08:24 Dose: 3 ml Aspirin (Aspirin Chewable) 81 mg PO DAILY [facility] Last Admin: 10/06/16 09:28 Dose: 81 mg Atorvastatin Calcium (Lipitor) 10 mg PO DAILY [facility] Last Admin: 10/06/16 09:41 Dose: 10 mg Cholecalciferol (Vitamin D) 2,000 iu PO DAILY [facility] Last Admin: 10/06/16 09:34 Dose: 2,000 iu Famotidine (Pepcid) 40 mg PO HS [facility] Last Admin: 10/05/16 21:57 Dose: 40 mg Folic Acid (Folic Acid) 2 mg PO DAILY [facility] Last Admin: 10/06/16 09:39 Dose: 2 mg Furosemide (Lasix) 40 mg PO DAILY [facility] Last Admin: 10/06/16 09:41 Dose: 40 mg Hydroxychloroquine Sulfate (Plaquenil) 400 mg PO DAILY [facility] Last Admin: 10/06/16 09:42 Dose: 400 mg Methylprednisolone 125 mg/ (Sodium Chloride) 50 mls @ 100 mls/hr IVPB Q12 [facility] Metoprolol Succinate (Toprol Xl) 100 mg PO DAILY [facility] Last Admin: 10/06/16 09:35 Dose: Not Given Modafinil (Provigil) 200 mg PO DAILY [facility] Last Admin: 10/06/16 10:19 Dose: 200 mg Nystatin (Nystatin Oral Susp) 5 ml PO QID [facility] Last Admin: 10/06/16 09:42 Dose: 5 ml Ondansetron HCl (Zofran Inj) 4 mg IVP Q6 PRN PRN Reason: Nausea/Vomiting - Labs Labs: 10/06/16 05:30 10/06/16 05:30 - Constitutional Appears: Older Than Stated Age, Chronically Ill - Head Exam Head Exam: NORMAL INSPECTION, NORMOCEPHALIC - Eye Exam Eye Exam: EOMI, Normal appearance, PERRL - ENT Exam ENT Exam: Mucous Membranes Dry, Normal External Ear Exam - Neck Exam Neck Exam: Full ROM. absent: Meningismus - Respiratory Exam Respiratory Exam: Decreased Breath Sounds, Rales, Rhonchi Additional comments: On High Flow Oxygen - Cardiovascular Exam Cardiovascular Exam: REGULAR RHYTHM, +S1, +S2 - GI/Abdominal Exam GI & Abdominal Exam: Soft, Normal Bowel Sounds. absent: Tenderness - Extremities Exam Additional comments: erythematous bilat foot - Back Exam Back Exam: Full ROM. 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 Prior to TCU, she was admitted to the ICU for Acute on Chronic Resp Failure, COPD exacerbation and Pneumonia. Patient is well known to our service from prior admissions. She is a chronic CO2 retainer with PCO2 baseline 80. Readmitted to the ICU, she was placed Bipap in the ER with improvement of mental status, started on Duonebs, Solumedrol. At presenr - on High Flow Oxygen 40L/60% FiO2 1. Acute on Chronic Respiratory Failure with Hypoxia and Hypercapnea likely sec to COPD Exacerbation Patient was transferred from TCU back to ICU for CO2 retention, PACO2 115 Now improving was on Bipap overnight but changed this am to High Flow pulmonary consulted- Dr. Yusuf Discussed case with Dr Covarrubias - will increase Acetazolamide and Provigil dose . Increase Solumedrol IV - 125mg q 12. d/c Gabapentin cont Duonebs 2. Metastatic squamous cell carcinoma of the lung Patient is being followed up in [facility] Recent PET scan showed metastatic disease 3. Altered mental status secondary to CO2 narcosis Improved with BIPAP in ER At present awake, oriented , eating her breakfast 4. Bilateral pneumonia ID consulted - Dr Larsen- rec IV Meropenem and Vanco 5. Multifocal Atrial Tachycardia and Episode of A Fib ASA 81 mg PO daily Metoprolol 50 mg PO daily follows with Dr. Cole, cardiology as an outpatient currently not on anticoagulation 6. Chronic CHF (congestive heart failure), Diastolic Dysfunction/Pulm HTN Continue Metoprolol and Lasix 7. HTN (hypertension) BP stable on Metoprolol 8. Hyperlipidemia Atorvastatin 10 mg PO QHS 9. GERD (gastroesophageal reflux disease) Protonix 40 mg 10. Rheumatoid arthritis/Peripheral Neuropathy of Bilateral Feet History Interstitial Lung Disease Methotrexate 15 mg PO every Saturday- will hold for now as discussed with Dr Covarrubias Folic Acid 2 mg PO BID Plaquenil 400 mg PO daily d/c Gabapentin 11. Peripheral Vascular Disease/Chronic Venous Insufficiency With chronic LE edema and venous stasis erythematous toes bilaterally and cool to touch Lac-hydrin lotion to dry skin LE Continue ASA 12. UTI Urine culture positive for Enteroccocus faecalis (09/24/16) Currently on Macrobid- deisy d/c as discussed with Dr Covarrubias Pt now on Iv Meropenem and Vanco 13. DVT prophylaxis Lovenox 40mg SC daily +
[2016-10-06 11:04] LABS: NEUTROPHIL 96 % (42-75); TOTAL CELLS COUNTED 100
[2016-10-06 11:05] LABS: GIANT PLATELETS PRESENT; LARGE PLATELETS PRESENT
[2016-10-06] MEDS ORDERED: Meropenem 1 GM in Sodium Chloride 0.9% 100 ML IVPB ONE (15:11)
[2016-10-06] MEDS: Meropenem 1 GM in Sodium Chloride 0.9% 100 ML IVPB SCH (17:00)
[2016-10-07] MEDS: Meropenem 1 GM in Sodium Chloride 0.9% 100 ML IVPB SCH ×4 (00:12→20:17)
[2016-10-07 06:13] LABS: ABG ALLEN TEST YES; ABG MECHANICAL RATE 20; ARTERIAL BLOOD GAS MODE BiPAP; ARTERIAL BLOOD GAS O2 CAPACITY 14.2 mL/dL (16-24); ARTERIAL BLOOD GAS O2 CONTENT 13.8 ML/dL (15-23); ARTERIAL BLOOD GAS PH 7.41 (7.35-7.45); ARTERIAL BLOOD GAS PO2 68 mm/Hg (80-100); ARTERIAL BLOOD HGB O2 SAT 93.4 % (95.0-98.0); CARBOXYHEMOGLOBIN 2.5 % (0.5-1.5); HHB 2.4 % (0.0-5.0); METHEMOGLOBIN 1.8 % (0.0-3.0)
--- NOTE | 2016-10-07 07:42 | RAD ---
HISTORY: f/u interstitial changes COMPARISON: 10/06/2016 FINDINGS: LUNGS: Re-demonstration of bilateral interstitial infiltrates, question acute versus chronic PLEURA: No significant pleural effusion identified, no pneumothorax apparent. CARDIOVASCULAR: Normal. OSSEOUS STRUCTURES: No significant abnormalities. VISUALIZED UPPER ABDOMEN: Normal. OTHER FINDINGS: None. IMPRESSION: Re-demonstration of bilateral interstitial infiltrates, question acute versus chronic
[2016-10-07 07:45] LABS: ALB/GLOB RATIO 1.2 (1.0-2.1); ALKALINE PHOSPHATASE 74 U/L (38-126); ALT/SGPT 66 U/L (9-52); AST/SGOT 41 U/L (14-36); BILIRUBIN,TOTAL 0.9 mg/dl (0.2-1.3); BLOOD UREA NITROGEN 22 mg/dl (7-17); CALCIUM 9.5 mg/dL (8.4-10.2); CHLORIDE 93 mmol/L (98-107); GFR AFRICAN-AMERICAN > 60; GLUCOSE,RANDOM 179 mg/dL (65-105); POTASSIUM 3.8 MMOL/L (3.6-5.0); SODIUM 144 mmol/l (132-148)
[2016-10-07] MEDS: Albuterol-Ipratrop 3 mg / 0.5 (3 ml) UD INH SCH ×4 (07:54→19:24)
--- NOTE | 2016-10-07 08:02 | CP.CCUPN ---
CCU Subjective - Physician Review Subjective (Free Text): Awake and alert, appears calm now, but periods of anxiety noted with remarks of being SOB, denies any chest discomfort / chest tightness, no increased sputum production nor any new fevers. Denies any new focal weakness, paresthesias, leg cramps, nor any new sensory changes. ROS: No other pertinent negs or positives on 10+ system review. Other PMSFH: All recent nursing and physician documentation reviewed and no new information noted relevant to current problems. MAJOR IMPRESSIONS / PLAN: 1. Chronic Resp failure 2 Hypercapnia 2. Metabolic Encephalopathy 2 #1 3. Bacterial pneumonia / Tracheobronchitis 4. s/ p E. faecalis UTI 5. H/o Met Lung CA PLAN: 1. Remains on nighttime BiPAP support and has tolerated HFNC during the daytime when off BiPAP. Desaturation noted with regular flow nasal cannula. Will try to maintain reprieves off BiPAP at least every 4 hours if she does well. Adjusted BiPAP to maintain TV above 300-400ml and SPO2 88-94%. 2. Follow ABGs, neuromental status. Gabapentin completely stopped yesterday over concern of excessive drowsiness from this medication. Will not resume unless new or recurrent neuropathic discomfort noted. 3. Modafinil increased to max dose of 200 mg yesterday. 4. Diamox sequels SR changed to regular Diamox caps at 500mg TID dosing as tolerated. Watch K levels, and serum HCO3 levels for effect. 5. Continue bronchodilator therapy. Steroids increased to higher dose for a few days as per Pulm. 6. Serial Lactates normalized as of yesterday. CCU Objective - Vital Signs / Intake & Output Vital Signs (Last 4 hours): Vital Signs Temp Pulse Resp BP Pulse Ox 10/07/16 07:36 98.6 F 78 30 H 130/54 L 98 10/07/16 07:30 72 10/07/16 06:22 72 10/07/16 06:00 78 21 130/54 L 95 Intake and Output (Last 8hrs): Intake & Output 10/06/16 10/07/16 10/07/16 22:59 06:59 14:59 Intake Total 240 475 Output Total 300 Balance -60 475 Intake: IV 90 400 Oral 150 75 Output: Urine 300 Urine, Voided 300 Other: # Voids Urine, Voided 1 - Physical Exam Head: Positive for: Normocephalic Pupils: Positive for: PERRL Extroacular Muscles: Positive for: EOMI Conjunctiva: Positive for: Normal. Negative for: Icteric Mouth: Positive for: Moist Mucous Membranes. Negative for: Drooling Pharnyx: Positive for: Normal. Negative for: ERYTHEMA, EXUDATE Neck: Positive for: Normal Range of Motion. Negative for: JVD Respiratory/Chest: Positive for: Decreased Breath Sounds. Negative for: Accessory Muscle Use, Wheezes Cardiovascular: Positive for: Regular Rate and Rhythm, Normal S1, S2. Negative for: Murmurs, Rub Abdomen: Positive for: Normal Bowel Sounds. Negative for: Tenderness, Distention Upper Extremity: Positive for: Other (RUE PICC) Lower Extremity: Negative for: Edema, CALF TENDERNESS, Cyanosis Neurological: Positive for: GCS=15, CN II-XII Intact, Motor Func Grossly Intact. Negative for: Speech Normal Skin: Positive for: Warm, Other (scattered areas of ecchymoses over enteire upper arms). Negative for: Rashes - Medications Active Medications: Active Medications Generic Name Dose Route Start Last Admin Trade Name Freq PRN Reason Stop Dose Admin Acetaminophen 650 mg 10/05/16 16:41 Tylenol 325mg Tab PO Q6 PRN Fever >100.4 F Acetazolamide 500 mg 10/06/16 09:00 10/06/16 16:32 Diamox 250 Mg Tab PO 500 mg TID BROWN Administration Albuterol/Ipratropium 3 ml 10/05/16 20:00 10/07/16 07:54 Duoneb 3 Mg/0.5 Mg (3 Ml) Ud INH 3 ml RQID BROWN Administration Aspirin 81 mg 10/06/16 09:00 10/06/16 09:28 Aspirin Chewable PO 81 mg DAILY BROWN Administration Atorvastatin Calcium 10 mg 10/06/16 09:00 10/06/16 09:41 Lipitor PO 10 mg DAILY BROWN Administration Cholecalciferol 2,000 iu 10/06/16 09:00 10/06/16 09:34 Vitamin D PO 2,000 iu DAILY BROWN Administration Famotidine 40 mg 10/05/16 22:00 10/06/16 21:02 Pepcid PO 40 mg HS BROWN Administration Folic Acid 2 mg 10/06/16 09:00 10/06/16 09:39 Folic Acid PO 2 mg DAILY BROWN Administration Furosemide 40 mg 10/05/16 16:45 10/06/16 09:41 Lasix PO 40 mg DAILY BROWN Administration Hydroxychloroquine Sulfate 400 mg 10/06/16 09:00 10/06/16 09:42 Plaquenil PO 400 mg DAILY BROWN Administration Methylprednisolone 125 mg/ 50 mls @ 100 mls/hr 10/06/16 09:30 10/06/16 20:16 Sodium Chloride IVPB 100 mls/hr Q12 BROWN Administration Meropenem 1 gm/ Sodium 100 mls @ 100 mls/hr 10/06/16 17:00 10/07/16 00:12 Chloride IVPB 100 mls/hr Q8 BROWN Administration Vancomycin HCl 1 gm/ Sodium 250 mls @ 166.667 mls/hr 10/07/16 04:00 10/07/16 03:49 Chloride IVPB 166.667 mls/hr Q12@0400,1600 BROWN Administration Metoprolol Succinate 100 mg 10/06/16 09:00 10/06/16 09:35 Toprol Xl PO Not Given DAILY [facility] Modafinil 200 mg 10/06/16 09:00 10/06/16 10:19 Provigil PO 200 mg DAILY BROWN Administration Nystatin 5 ml 10/05/16 17:00 10/06/16 21:02 Nystatin Oral Susp PO 5 ml QID BROWN Administration Ondansetron HCl 4 mg 10/05/16 16:40 Zofran Inj IVP Q6 PRN Nausea/Vomiting - Patient Studies Lab Studies: Microbiology Studies 10/05/16 17:15 MRSA Culture (Admit) - Final Nose MRSA NOT DETECTED Lab Studies 10/07/16 10/07/16 10/07/16 Range/Units 05:57 05:30 05:30 WBC 11.0 H (4.8-10.8) K/uL RBC 3.19 L (3.80-5.20) Mil/uL Hgb 10.4 L (12.0-16.0) g/dL Hct 34.2 (34.0-47.0) % MCV 107.5 H (81.0-99.0) fl MCH 32.6 H (27.0-31.0) pg MCHC 30.3 L (33.0-37.0) g/dL RDW 16.4 H (11.5-14.5) % Plt Count 121 L (130-400) K/uL MPV 10.5 (7.2-11.7) fl Neut % (Auto) 97.1 H (50.0-75.0) % Lymph % (Auto) 1.4 L (20.0-40.0) % [place] % (Auto) 1.4 (0.0-10.0) % Eos % (Auto) 0.0 (0.0-4.0) % Baso % (Auto) 0.1 (0.0-2.0) % Neut # 10.7 H (1.8-7.0) K/uL Lymph # 0.2 L (1.0-4.3) K/uL [place] # 0.2 (0.0-0.8) K/uL Eos # 0.0 (0.0-0.7) K/uL Baso # 0.0 (0.0-0.2) K/uL Neutrophils % (Manual) (42-75) % Lymphocytes % (Manual) (20-50) % Monocytes % (Manual) (0-10) % Toxic Granulation Platelet Estimate (NORMAL) Large Platelets Giant Platelets Hypochromasia (manual) Anisocytosis (manual) Macrocytosis (manual) pCO2 89 H* (35-45) mm/Hg pO2 68 L (80-100) mm/Hg HCO3 46.0 H* (21-28) mmol/L ABG pH 7.41 (7.35-7.45) ABG Total CO2 59.1 H (22-28) mmol/L ABG O2 Saturation 97.5 (95-98) % ABG O2 Content 13.8 L (15-23) ML/dL ABG Base Excess 27.1 H (-2.0-3.0) mmol/L ABG Hemoglobin 10.5 L (11.7-17.4) g/dL ABG Carboxyhemoglobin 2.5 H (0.5-1.5) % POC ABG HHb (Measured) 2.4 (0.0-5.0) % ABG Methemoglobin 1.8 (0.0-3.0) % ABG O2 Capacity 14.2 L (16-24) mL/dL Jorge Luis Test Yes A-a O2 Difference 177.0 mm/Hg Hgb O2 Saturation 93.4 L (95.0-98.0) % Vent Mode Bipap Mechanical Rate 20 FiO2 50.0 % Inspiratory BiPAP 20 Expiratory BiPAP 6 Crit Value Called To Juan Ramon rubi Crit Value Called By Ted Crit Value Read Back Y Blood Gas Notified Time 613 Sodium 144 (132-148) mmol/l Potassium 3.8 (3.6-5.0) MMOL/L Chloride 93 L (98-107) mmol/L BUN 22 H (7-17) mg/dl Creatinine 0.8 (0.7-1.2) mg/dL Est GFR ( Amer) > 60 Est GFR (Non-Af Amer) > 60 Random Glucose 179 H (65-105) mg/dL Calcium 9.5 (8.4-10.2) mg/dL Total Bilirubin 0.9 (0.2-1.3) mg/dl AST 41 H (14-36) U/L ALT 66 H (9-52) U/L Alkaline Phosphatase 74 (38-126) U/L Total Protein 6.0 L (6.3-8.2) G/DL Albumin 3.3 L (3.5-5.0) g/dL Globulin 2.7 (2.2-3.9) gm/dL Albumin/Globulin Ratio 1.2 (1.0-2.1) 10/06/16 Range/Units 05:30 WBC (4.8-10.8) K/uL RBC (3.80-5.20) Mil/uL Hgb (12.0-16.0) g/dL Hct (34.0-47.0) % MCV (81.0-99.0) fl MCH (27.0-31.0) pg MCHC (33.0-37.0) g/dL RDW (11.5-14.5) % Plt Count (130-400) K/uL MPV (7.2-11.7) fl Neut % (Auto) (50.0-75.0) % Lymph % (Auto) (20.0-40.0) % [place] % (Auto) (0.0-10.0) % Eos % (Auto) (0.0-4.0) % Baso % (Auto) (0.0-2.0) % Neut # (1.8-7.0) K/uL Lymph # (1.0-4.3) K/uL [place] # (0.0-0.8) K/uL Eos # (0.0-0.7) K/uL Baso # (0.0-0.2) K/uL Neutrophils % (Manual) 96 H (42-75) % Lymphocytes % (Manual) 2 L (20-50) % Monocytes % (Manual) 2 (0-10) % Toxic Granulation Present Platelet Estimate Decreased L (NORMAL) Large Platelets Present Giant Platelets Present Hypochromasia (manual) Slight Anisocytosis (manual) Slight Macrocytosis (manual) Moderate pCO2 (35-45) mm/Hg pO2 (80-100) mm/Hg HCO3 (21-28) mmol/L ABG pH (7.35-7.45) ABG Total CO2 (22-28) mmol/L ABG O2 Saturation (95-98) % ABG O2 Content (15-23) ML/dL ABG Base Excess (-2.0-3.0) mmol/L ABG Hemoglobin (11.7-17.4) g/dL ABG Carboxyhemoglobin (0.5-1.5) % POC ABG HHb (Measured) (0.0-5.0) % ABG Methemoglobin (0.0-3.0) % ABG O2 Capacity (16-24) mL/dL Jorge Luis Test A-a O2 Difference mm/Hg Hgb O2 Saturation (95.0-98.0) % Vent Mode Mechanical Rate FiO2 % Inspiratory BiPAP Expiratory BiPAP Crit Value Called To Crit Value Called By Crit Value Read Back Blood Gas Notified Time Sodium (132-148) mmol/l Potassium (3.6-5.0) MMOL/L Chloride (98-107) mmol/L BUN (7-17) mg/dl Creatinine (0.7-1.2) mg/dL Est GFR ( Amer) Est GFR (Non-Af Amer) Random Glucose (65-105) mg/dL Calcium (8.4-10.2) mg/dL Total Bilirubin (0.2-1.3) mg/dl AST (14-36) U/L ALT (9-52) U/L Alkaline Phosphatase (38-126) U/L Total Protein (6.3-8.2) G/DL Albumin (3.5-5.0) g/dL Globulin (2.2-3.9) gm/dL Albumin/Globulin Ratio (1.0-2.1) Laboratory Results - last 24 hr 10/06/16 10/07/16 10/07/16 05:30 05:30 05:30 WBC 11.0 H RBC 3.19 L Hgb 10.4 L Hct 34.2 MCV 107.5 H MCH 32.6 H MCHC 30.3 L RDW 16.4 H Plt Count 121 L MPV 10.5 Neut % (Auto) 97.1 H Lymph % (Auto) 1.4 L [place] % (Auto) 1.4 Eos % (Auto) 0.0 Baso % (Auto) 0.1 Neut # 10.7 H Lymph # 0.2 L [place] # 0.2 Eos # 0.0 Baso # 0.0 Neutrophils % (Manual) 96 H Lymphocytes % (Manual) 2 L Monocytes % (Manual) 2 Toxic Granulation Present Platelet Estimate Decreased L Large Platelets Present Giant Platelets Present Hypochromasia (manual) Slight Anisocytosis (manual) Slight Macrocytosis (manual) Moderate pCO2 pO2 HCO3 ABG pH ABG Total CO2 ABG O2 Saturation ABG O2 Content ABG Base Excess ABG Hemoglobin ABG Carboxyhemoglobin POC ABG HHb (Measured) ABG Methemoglobin ABG O2 Capacity Jorge Luis Test A-a O2 Difference Hgb O2 Saturation Vent Mode Mechanical Rate FiO2 Inspiratory BiPAP Expiratory BiPAP Crit Value Called To Crit Value Called By Crit Value Read Back Blood Gas Notified Time Sodium 144 Potassium 3.8 Chloride 93 L BUN 22 H Creatinine 0.8 Est GFR ( Amer) > 60 Est GFR (Non-Af Amer) > 60 Random Glucose 179 H Calcium 9.5 Total Bilirubin 0.9 AST 41 H ALT 66 H Alkaline Phosphatase 74 Total Protein 6.0 L Albumin 3.3 L Globulin 2.7 Albumin/Globulin Ratio 1.2 10/07/16 05:57 WBC RBC Hgb Hct MCV MCH MCHC RDW Plt Count MPV Neut % (Auto) Lymph % (Auto) [place] % (Auto) Eos % (Auto) Baso % (Auto) Neut # Lymph # [place] # Eos # Baso # Neutrophils % (Manual) Lymphocytes % (Manual) Monocytes % (Manual) Toxic Granulation Platelet Estimate Large Platelets Giant Platelets Hypochromasia (manual) Anisocytosis (manual) Macrocytosis (manual) pCO2 89 H* pO2 68 L HCO3 46.0 H* ABG pH 7.41 ABG Total CO2 59.1 H ABG O2 Saturation 97.5 ABG O2 Content 13.8 L ABG Base Excess 27.1 H ABG Hemoglobin 10.5 L ABG Carboxyhemoglobin 2.5 H POC ABG HHb (Measured) 2.4 ABG Methemoglobin 1.8 ABG O2 Capacity 14.2 L Ojrge Luis Test Yes A-a O2 Difference 177.0 Hgb O2 Saturation 93.4 L Vent Mode Bipap Mechanical Rate 20 FiO2 50.0 Inspiratory BiPAP 20 Expiratory BiPAP 6 Crit Value Called To Juan Ramon urbi Crit Value Called By Ted Crit Value Read Back Y Blood Gas Notified Time 613 Sodium Potassium Chloride BUN Creatinine Est GFR ( Amer) Est GFR (Non-Af Amer) Random Glucose Calcium Total Bilirubin AST ALT Alkaline Phosphatase Total Protein Albumin Globulin Albumin/Globulin Ratio Fingerstick Blood Sugar Results: 264 Review of Systems - Review of Systems Review of Systems: As above. Critical Care Progress Note - Extremities/Vascular Does the Patient have a Central Venous Catheter?: Yes Insertion Site: RUE PICC Does the Patient need a Central Venous Catheter?: Yes Does the Patient have a [place] Catheter?: No Does the Patient need a [place] Catheter?: No - Prophylaxis GI Prophylaxis GI: Pepsid - Prophylaxis DVT Prophylaxis DVT: SCDs - Nutrition Nutrition: Nutrition Category Date Time Status Regular Diet [DIET] Diets 10/05/16 Dinner Active
[2016-10-07 08:06] LABS: CARBON DIOXIDE 49 mmol/L (22-30)
[2016-10-07] MEDS: Metoprolol Succinate 100 mg XL Tab PO SCH (08:32)
[2016-10-07] MEDS: Nystatin 100,000 Units/ml Oral Susp 5 ml UD PO SCH ×3 (08:32→22:00)
[2016-10-07] MEDS: methylPREDNISolone 125 MG in Sodium Chloride 0.9% 50 ML IVPB SCH ×2 (08:34→20:16)
--- NOTE | 2016-10-07 11:48 | CP.PCM.PN ---
Subjective - Date & Time of Evaluation Date of Evaluation: 10/07/16 Time of Evaluation: 11:45 - Subjective Subjective: Seen in the ICU on AM rounds. Case discussed with floor steward/stewardess. Labs and AM x-ray reviewed. Medications were reviewed. Awake, cooperative, alert; improved from the last few days. Still has small volume of dark brown, bloody sputum expectorated. Dependant and generalized edema noted. Dusky nail beds. Neck is supple and trachea midline. Minimal ability to vocalize. Scattered ecchymoses over upper extremities. Breath sounds are diminished bilaterally with scattered high-pitched E wheezes. Dry late inspiratory rales bilaterally. Few rhonchi. Cardiac rhythm irregular, rate controlled. Tolerating, gradually improving on current regimen. Diamox increased to 500MG TID. BiPAP mask ventilation 20/6/20/50% and High flow nasal at 40L/60%. Temporary increase in steroid dose to 125 BID for 48hrs (? pulm toxicity of nitrofurantoin?) Modafanil 200MG daily and dual antibiotics (Merem/Vanco) for hospital acquired infectious process. Objective - Vital Signs/Intake and Output Vital Signs (last 24 hours): Temp Pulse Resp BP Pulse Ox 98.6 F 94 H 28 H 98/45 L 95 10/07/16 07:36 10/07/16 10:00 10/07/16 10:00 10/07/16 10:00 10/07/16 10:00 Intake and Output: 10/06/16 10/07/16 23:59 11:59 Intake Total 240 875 Output Total 300 Balance -60 875 - Medications Medications: Current Medications Acetaminophen (Tylenol 325mg Tab) 650 mg PO Q6 PRN PRN Reason: Fever >100.4 F Acetazolamide (Diamox 250 Mg Tab) 500 mg PO TID [facility] Last Admin: 10/07/16 08:35 Dose: 500 mg Albuterol/Ipratropium (Duoneb 3 Mg/0.5 Mg (3 Ml) Ud) 3 ml INH RQID [facility] Last Admin: 10/07/16 11:30 Dose: 3 ml Aspirin (Aspirin Chewable) 81 mg PO DAILY [facility] Last Admin: 10/07/16 08:34 Dose: 81 mg Atorvastatin Calcium (Lipitor) 10 mg PO DAILY [facility] Last Admin: 10/07/16 08:32 Dose: 10 mg Cholecalciferol (Vitamin D) 2,000 iu PO DAILY [facility] Last Admin: 10/07/16 08:34 Dose: 2,000 iu Famotidine (Pepcid) 40 mg PO HS [facility] Last Admin: 10/06/16 21:02 Dose: 40 mg Folic Acid (Folic Acid) 2 mg PO DAILY [facility] Last Admin: 10/07/16 08:32 Dose: 2 mg Furosemide (Lasix) 40 mg PO DAILY [facility] Last Admin: 10/07/16 08:34 Dose: 40 mg Hydroxychloroquine Sulfate (Plaquenil) 400 mg PO DAILY [facility] Last Admin: 10/07/16 08:32 Dose: 400 mg Methylprednisolone 125 mg/ (Sodium Chloride) 50 mls @ 100 mls/hr IVPB Q12 [facility] Last Admin: 10/07/16 08:34 Dose: 100 mls/hr Meropenem 1 gm/ Sodium (Chloride) 100 mls @ 100 mls/hr IVPB Q8 [facility] Last Admin: 10/07/16 08:33 Dose: 100 mls/hr Vancomycin HCl 1 gm/ Sodium (Chloride) 250 mls @ 166.667 mls/hr IVPB Q12@0400, 1600 [facility] Last Admin: 10/07/16 03:49 Dose: 166.667 mls/hr Metoprolol Succinate (Toprol Xl) 100 mg PO DAILY [facility] Last Admin: 10/07/16 08:32 Dose: 100 mg Modafinil (Provigil) 200 mg PO DAILY [facility] Last Admin: 10/07/16 08:34 Dose: 200 mg Nystatin (Nystatin Oral Susp) 5 ml PO QID [facility] Last Admin: 10/07/16 08:32 Dose: 5 ml Ondansetron HCl (Zofran Inj) 4 mg IVP Q6 PRN PRN Reason: Nausea/Vomiting - Labs Labs: 10/07/16 05:30 10/07/16 05:30 Assessment and Plan (1) Pulmonary infiltrates on CXR Status: Acute (2) Acute on chronic respiratory failure with hypoxia and hypercapnia Status: Acute (3) Atrial fibrillation Status: Chronic (4) 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
--- NOTE | 2016-10-07 12:37 | CP.PCM.PN ---
Subjective - Date & Time of Evaluation Date of Evaluation: 10/07/16 Time of Evaluation: 11:30 - Subjective Subjective: Pt is on Bipap 20//20/100% Pt is more alert today had episode of hemoptysis this am noted crusted blood on her lips PCO2 down to 89 today No fever + cough no CP no abd pain Objective - Vital Signs/Intake and Output Vital Signs (last 24 hours): Temp Pulse Resp BP Pulse Ox 99.7 F H 91 H 19 126/78 94 L 10/07/16 12:00 10/07/16 12:00 10/07/16 12:00 10/07/16 12:00 10/07/16 12:00 Intake and Output: 10/07/16 10/07/16 06:59 18:59 Intake Total 715 400 Balance 715 400 - Medications Medications: Current Medications Acetaminophen (Tylenol 325mg Tab) 650 mg PO Q6 PRN PRN Reason: Fever >100.4 F Acetazolamide (Diamox 250 Mg Tab) 500 mg PO TID [facility] Last Admin: 10/07/16 08:35 Dose: 500 mg Albuterol/Ipratropium (Duoneb 3 Mg/0.5 Mg (3 Ml) Ud) 3 ml INH RQID [facility] Last Admin: 10/07/16 11:30 Dose: 3 ml Aspirin (Aspirin Chewable) 81 mg PO DAILY [facility] Last Admin: 10/07/16 08:34 Dose: 81 mg Atorvastatin Calcium (Lipitor) 10 mg PO DAILY [facility] Last Admin: 10/07/16 08:32 Dose: 10 mg Cholecalciferol (Vitamin D) 2,000 iu PO DAILY [facility] Last Admin: 10/07/16 08:34 Dose: 2,000 iu Famotidine (Pepcid) 40 mg PO HS [facility] Last Admin: 10/06/16 21:02 Dose: 40 mg Folic Acid (Folic Acid) 2 mg PO DAILY [facility] Last Admin: 10/07/16 08:32 Dose: 2 mg Furosemide (Lasix) 40 mg PO DAILY [facility] Last Admin: 10/07/16 08:34 Dose: 40 mg Hydroxychloroquine Sulfate (Plaquenil) 400 mg PO DAILY [facility] Last Admin: 10/07/16 08:32 Dose: 400 mg Methylprednisolone 125 mg/ (Sodium Chloride) 50 mls @ 100 mls/hr IVPB Q12 [facility] Last Admin: 10/07/16 08:34 Dose: 100 mls/hr Meropenem 1 gm/ Sodium (Chloride) 100 mls @ 100 mls/hr IVPB Q8 [facility] Last Admin: 10/07/16 08:33 Dose: 100 mls/hr Vancomycin HCl 1 gm/ Sodium (Chloride) 250 mls @ 166.667 mls/hr IVPB Q12@0400, 1600 [facility] Last Admin: 10/07/16 03:49 Dose: 166.667 mls/hr Metoprolol Succinate (Toprol Xl) 100 mg PO DAILY [facility] Last Admin: 10/07/16 08:32 Dose: 100 mg Modafinil (Provigil) 200 mg PO DAILY [facility] Last Admin: 10/07/16 08:34 Dose: 200 mg Nystatin (Nystatin Oral Susp) 5 ml PO QID [facility] Last Admin: 10/07/16 08:32 Dose: 5 ml Ondansetron HCl (Zofran Inj) 4 mg IVP Q6 PRN PRN Reason: Nausea/Vomiting - Labs Labs: 10/07/16 05:30 10/07/16 05:30 - Constitutional Appears: Older Than Stated Age, Chronically Ill - Head Exam Head Exam: NORMAL INSPECTION, NORMOCEPHALIC - Eye Exam Eye Exam: EOMI, Normal appearance, PERRL - ENT Exam ENT Exam: Mucous Membranes Dry, Normal External Ear Exam - Neck Exam Neck Exam: Full ROM. absent: Meningismus - Respiratory Exam Respiratory Exam: Decreased Breath Sounds, Rales, Rhonchi, + wheezing Additional comments: On Bipap - Cardiovascular Exam Cardiovascular Exam: IRREGULAR RHYTHM, +S1, +S2 - GI/Abdominal Exam GI & Abdominal Exam: Soft, Normal Bowel Sounds. absent: Tenderness - Extremities Exam Additional comments: erythematous bilat foot - Back Exam Back Exam: Full ROM. 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 Prior to TCU, she was admitted to the ICU for Acute on Chronic Resp Failure, COPD exacerbation and Pneumonia. Patient is well known to our service from prior admissions. She is a chronic CO2 retainer with PCO2 baseline 80. Readmitted to the ICU, she was placed Bipap in the ER with improvement of mental status, started on Duonebs, Solumedrol. At present - on Bipap 20/6/20/100% 1. Acute on Chronic Respiratory Failure with Hypoxia and Hypercapnea likely sec to COPD Exacerbation Patient was transferred from TCU back to ICU for CO2 retention, PACO2 115 pCO@ today =-89 Now improving on Bipap however to be placed on High Flow intermittently Pulmonary : Dr. Yusuf is following pt closely Acetazolamide and Provigil dose increased Increased Solumedrol IV - 125mg q 12. d/c Gabapentin to avoid sedation cont Duonebs 2. Metastatic squamous cell carcinoma of the lung Patient is being followed up in [facility] Recent PET scan showed metastatic disease 3. Altered mental status secondary to CO2 narcosis Improved with BIPAP At present awake, oriented 4. Bilateral pneumonia ID consulted - Dr Larsen- rec IV Meropenem and Vanco Sputum c/s 5. Multifocal Atrial Tachycardia and Episode of A Fib ASA 81 mg PO daily Metoprolol 50 mg PO daily follows with Dr. Cole, cardiology as an outpatient currently not on anticoagulation 6. Chronic CHF (congestive heart failure), Diastolic Dysfunction/Pulm HTN Continue Metoprolol and Lasix 7. HTN (hypertension) BP stable on Metoprolol 8. Hyperlipidemia Atorvastatin 10 mg PO QHS 9. GERD (gastroesophageal reflux disease) Protonix 40 mg 10. Rheumatoid arthritis/Peripheral Neuropathy of Bilateral Feet History Interstitial Lung Disease Methotrexate 15 mg PO every Saturday- will hold for now as discussed with Dr Covarrubias Folic Acid Plaquenil 400 mg PO daily d/c Gabapentin 11. Peripheral Vascular Disease/Chronic Venous Insufficiency With chronic LE edema and venous stasis erythematous toes bilaterally and cool to touch Lac-hydrin lotion to dry skin LE Continue ASA 12. UTI Urine culture positive for Enteroccocus faecalis (09/24/16) Currently on Macrobid- d/c as discussed with Dr Covarrubias Pt now on Iv Meropenem and Vanco 13. DVT prophylaxis Lovenox 40mg SC daily
[2016-10-07] MEDS ORDERED: Sodium Chloride 3% for Inhalation 4 ML VIAL.NEB IH PRN (12:58)
--- NOTE | 2016-10-07 16:58 | CP.PCM.PN ---
Subjective - Date & Time of Evaluation Date of Evaluation: 10/07/16 Time of Evaluation: 16:53 - Subjective Subjective: I D NOTE PATIENT EVALUATED ON 10/06/16 STARTED ON VANCOMYCIN /MEREM HAVING DIFFICULTY BREATHING WHICH IS PRETTY CONSISTENT FOR THIS PATIENT HAVE ADJUSTED DOSE OF MEROPENEM VANCOMYCIN WILL COVER ENTEROCOCCUS AND STAPH EPIDERMIDIS NOTED FROM CULTURES VANCOMYCIN TROUGH ORDERED Objective - Vital Signs/Intake and Output Vital Signs (last 24 hours): Temp Pulse Resp BP Pulse Ox 99.7 F H 96 H 29 H 114/75 100 10/07/16 12:00 10/07/16 14:00 10/07/16 14:00 10/07/16 14:00 10/07/16 14:00 Intake and Output: 10/07/16 10/07/16 06:59 18:59 Intake Total 715 400 Balance 715 400 - Medications Medications: Current Medications Acetaminophen (Tylenol 325mg Tab) 650 mg PO Q6 PRN PRN Reason: Fever >100.4 F Acetazolamide (Diamox 250 Mg Tab) 500 mg PO TID [facility] Last Admin: 10/07/16 16:25 Dose: 500 mg Albuterol/Ipratropium (Duoneb 3 Mg/0.5 Mg (3 Ml) Ud) 3 ml INH RQID [facility] Last Admin: 10/07/16 15:16 Dose: 3 ml Aspirin (Aspirin Chewable) 81 mg PO DAILY [facility] Last Admin: 10/07/16 08:34 Dose: 81 mg Atorvastatin Calcium (Lipitor) 10 mg PO DAILY [facility] Last Admin: 10/07/16 08:32 Dose: 10 mg Cholecalciferol (Vitamin D) 2,000 iu PO DAILY [facility] Last Admin: 10/07/16 08:34 Dose: 2,000 iu Famotidine (Pepcid) 40 mg PO HS [facility] Last Admin: 10/06/16 21:02 Dose: 40 mg Folic Acid (Folic Acid) 2 mg PO DAILY [facility] Last Admin: 10/07/16 08:32 Dose: 2 mg Furosemide (Lasix) 40 mg PO DAILY [facility] Last Admin: 10/07/16 08:34 Dose: 40 mg Hydroxychloroquine Sulfate (Plaquenil) 400 mg PO DAILY [facility] Last Admin: 10/07/16 08:32 Dose: 400 mg Methylprednisolone 125 mg/ (Sodium Chloride) 50 mls @ 100 mls/hr IVPB Q12 [facility] Last Admin: 10/07/16 08:34 Dose: 100 mls/hr Vancomycin HCl 1 gm/ Sodium (Chloride) 250 mls @ 166.667 mls/hr IVPB Q12@0400, 1600 [facility] Last Admin: 10/07/16 16:27 Dose: 166.667 mls/hr Meropenem 1 gm/ Sodium (Chloride) 100 mls @ 100 mls/hr IVPB Q12 [facility] Metoprolol Succinate (Toprol Xl) 100 mg PO DAILY [facility] Last Admin: 10/07/16 08:32 Dose: 100 mg Modafinil (Provigil) 200 mg PO DAILY [facility] Last Admin: 10/07/16 08:34 Dose: 200 mg Nystatin (Nystatin Oral Susp) 5 ml PO QID [facility] Last Admin: 10/07/16 15:09 Dose: Not Given Ondansetron HCl (Zofran Inj) 4 mg IVP Q6 PRN PRN Reason: Nausea/Vomiting - Labs Labs: 10/07/16 05:30 10/07/16 05:30
[2016-10-08 06:11] LABS: BASO % 0.2 % (0.0-2.0); HEMATOCRIT 34.1 % (34.0-47.0); LYMPH # 0.1 K/uL (1.0-4.3); LYMPH % 0.9 % (20.0-40.0); MEAN CELL VOLUME 107.5 fl (81.0-99.0); MEAN CORPUSCULAR HEMOGLOBIN 32.3 pg (27.0-31.0); MEAN PLATELET VOLUME 10.2 fl (7.2-11.7); MONO # 0.5 K/uL (0.0-0.8); MONO % 2.8 % (0.0-10.0); NEUT # 15.4 K/uL (1.8-7.0); NEUT % 96.1 % (50.0-75.0); NRBC % 0.1 % (0.0-0.0); PLATELET COUNT 138 K/uL (130-400); RED CELL DISTRIBUTION WIDTH 16.6 % (11.5-14.5); WHITE BLOOD COUNT 16.1 K/uL (4.8-10.8)
[2016-10-08 06:26] LABS: BLOOD UREA NITROGEN 29 mg/dl (7-17); CALCIUM 9.8 mg/dL (8.4-10.2); CHLORIDE 94 mmol/L (98-107); GFR AFRICAN-AMERICAN > 60; GLUCOSE,RANDOM 151 mg/dL (65-105); POTASSIUM 3.6 MMOL/L (3.6-5.0); SODIUM 146 mmol/l (132-148)
[2016-10-08 06:40] LABS: CARBON DIOXIDE 51 mmol/L (22-30)
[2016-10-08 07:47] LABS: NEUTROPHIL 95 % (42-75); NUCLEATED RED BLOOD CELL 1 % (0-0); REACTIVE LYMPHOCYTES 1 % (0-0); TOTAL CELLS COUNTED 100
[2016-10-08] MEDS: Albuterol-Ipratrop 3 mg / 0.5 (3 ml) UD INH SCH ×4 (08:00→19:14)
[2016-10-08] MEDS: Fluconazole IV 100mg/50 ml NS 50 ML IVPB SCH (08:32)
--- NOTE | 2016-10-08 08:56 | CP.PCM.PN ---
Subjective - Date & Time of Evaluation Date of Evaluation: 10/08/16 Time of Evaluation: 08:54 - Subjective Subjective: Lethargic this morning. Awakens only briefly with loud stimulus. Acknowledges my questioning, but goes back to sleep. Just now removed from BiPAP and placed on HFNC @ 40L/60%. Tmax 99.8 degrees, A fib with rate controlled. Edematous ++ with scattered ecchymoses over UE's. Breath sounds are present bilaterally, very diminished. Occasional faint E wheezes bilaterally in UL's. Myoclonic jerky movements suggesting continued hypercapnea. Heart sounds are very distant, irregular. ABG requested. Will need to discuss with her and her limits of continued aggressive care. She may be more appropriate for palliative care or even hospice at this time. Discussed prognosis with patient's this morning. Will try on BiPAP with higher respiratory rate. If unable to improve current status he does want her to be intubated and mechanically ventilated, knowing extubation may be difficult and tracheostomy may be the ultimate outcome. Objective - Vital Signs/Intake and Output Vital Signs (last 24 hours): Temp Pulse Resp BP Pulse Ox 99.4 F 79 21 92/67 L 90 L 10/08/16 07:48 10/08/16 08:04 10/08/16 08:36 10/08/16 07:48 10/08/16 07:48 Intake and Output: 10/07/16 10/08/16 23:59 11:59 Intake Total 720 310 Balance 720 310 - Medications Medications: Current Medications Acetaminophen (Tylenol 325mg Tab) 650 mg PO Q6 PRN PRN Reason: Fever >100.4 F Acetazolamide (Diamox 250 Mg Tab) 500 mg PO TID [facility] Last Admin: 10/08/16 08:43 Dose: 500 mg Albuterol/Ipratropium (Duoneb 3 Mg/0.5 Mg (3 Ml) Ud) 3 ml INH RQID [facility] Last Admin: 10/08/16 08:00 Dose: 3 ml Aspirin (Aspirin Chewable) 81 mg PO DAILY [facility] Last Admin: 10/08/16 08:42 Dose: 81 mg Atorvastatin Calcium (Lipitor) 10 mg PO DAILY [facility] Last Admin: 10/08/16 08:40 Dose: 10 mg Cholecalciferol (Vitamin D) 2,000 iu PO DAILY [facility] Last Admin: 10/08/16 08:41 Dose: 2,000 iu Famotidine (Pepcid) 40 mg PO HS [facility] Last Admin: 10/07/16 22:04 Dose: 40 mg Folic Acid (Folic Acid) 2 mg PO DAILY [facility] Last Admin: 10/08/16 08:44 Dose: 2 mg Furosemide (Lasix) 40 mg PO DAILY [facility] Last Admin: 10/07/16 08:34 Dose: 40 mg Hydroxychloroquine Sulfate (Plaquenil) 400 mg PO DAILY [facility] Last Admin: 10/08/16 08:45 Dose: 400 mg Methylprednisolone 125 mg/ (Sodium Chloride) 50 mls @ 100 mls/hr IVPB Q12 [facility] Stop: 10/08/16 10:00 Last Admin: 10/07/16 20:16 Dose: 100 mls/hr Vancomycin HCl 1 gm/ Sodium (Chloride) 250 mls @ 166.667 mls/hr IVPB Q12@0400, 1600 [facility] Last Admin: 10/08/16 04:00 Dose: 166.667 mls/hr Meropenem 1 gm/ Sodium (Chloride) 100 mls @ 100 mls/hr IVPB Q12 [facility] Last Admin: 10/07/16 20:17 Dose: 100 mls/hr Fluconazole (Diflucan Iv 100 Mg/50 Ml Ns) 50 mls @ 50 mls/hr IVPB DAILY [facility] Last Admin: 10/08/16 08:32 Dose: 50 mls/hr Methylprednisolone 60 mg/ (Sodium Chloride) 50 mls @ 100 mls/hr IVPB Q12 [facility] Metoprolol Succinate (Toprol Xl) 100 mg PO DAILY [facility] Last Admin: 10/07/16 08:32 Dose: 100 mg Modafinil (Provigil) 200 mg PO DAILY [facility] Last Admin: 10/08/16 08:51 Dose: 200 mg Ondansetron HCl (Zofran Inj) 4 mg IVP Q6 PRN PRN Reason: Nausea/Vomiting - Labs Labs: 10/08/16 06:03 10/08/16 06:03 Assessment and Plan (1) Pulmonary infiltrates on CXR Status: Acute (2) Acute on chronic respiratory failure with hypoxia and hypercapnia Status: Acute (3) Atrial fibrillation Status: Chronic (4) 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
[2016-10-08 09:07] LABS: ABG ALLEN TEST YES; ARTERIAL BLOOD GAS O2 CAPACITY 14.2 mL/dL (16-24); ARTERIAL BLOOD GAS PH 7.35 (7.35-7.45); ARTERIAL BLOOD GAS PO2 54 mm/Hg (80-100); ARTERIAL BLOOD HGB O2 SAT 88.1 % (95.0-98.0); CARBOXYHEMOGLOBIN 2.3 % (0.5-1.5); HHB 8.1 % (0.0-5.0); METHEMOGLOBIN 1.5 % (0.0-3.0)
[2016-10-08] MEDS: Meropenem 1 GM in Sodium Chloride 0.9% 100 ML IVPB SCH ×2 (10:04→20:19)
[2016-10-08 10:50] LABS: ABG ALLEN TEST YES; ARTERIAL BLOOD GAS HCO3 45.8 mmol/L (21-28); ARTERIAL BLOOD GAS O2 CAPACITY 13.4 mL/dL (16-24); ARTERIAL BLOOD GAS O2 CONTENT 12.6 ML/dL (15-23); ARTERIAL BLOOD GAS PH 7.41 (7.35-7.45); ARTERIAL BLOOD GAS PO2 55 mm/Hg (80-100); ARTERIAL BLOOD HGB O2 SAT 90.5 % (95.0-98.0); CARBOXYHEMOGLOBIN 2.3 % (0.5-1.5); HHB 5.6 % (0.0-5.0); METHEMOGLOBIN 1.6 % (0.0-3.0)
[2016-10-08] MEDS: methylPREDNISolone 125 MG in Sodium Chloride 0.9% 50 ML IVPB SCH (11:54)
[2016-10-08] MEDS: Metoprolol Succinate 100 mg XL Tab PO SCH ×2 (12:24→20:20)
--- NOTE | 2016-10-08 19:04 | CP.PCM.PN ---
Subjective - Date & Time of Evaluation Date of Evaluation: 10/08/16 Time of Evaluation: 08:30 - Subjective Subjective: Patient was seen and evaluated bedside this AM. Appears very lethargic , does not follow any commands, responds to name calling only by moaning, keeps her eyes closed. On BIPAP RR 24 FIo2 50% 20/6 poor prognosis bedside aware of patient's condition and would like everything to be done ABG this Am on FIo2 60 % 102/54/45/7.35 BP 105/59 afebrile WBC 16 k hgb 10 Objective - Vital Signs/Intake and Output Vital Signs (last 24 hours): Temp Pulse Resp BP Pulse Ox 98.6 F 78 24 134/79 94 L 10/08/16 16:00 10/08/16 18:00 10/08/16 18:00 10/08/16 18:00 10/08/16 18:00 Intake and Output: 10/08/16 10/09/16 18:59 06:59 Intake Total 880 Balance 880 - Medications Medications: Current Medications Acetaminophen (Tylenol 325mg Tab) 650 mg PO Q6 PRN PRN Reason: Fever >100.4 F Acetazolamide (Diamox 250 Mg Tab) 500 mg PO TID [facility] Last Admin: 10/08/16 17:21 Dose: 500 mg Albuterol/Ipratropium (Duoneb 3 Mg/0.5 Mg (3 Ml) Ud) 3 ml INH RQID [facility] Last Admin: 10/08/16 15:15 Dose: 3 ml Aspirin (Aspirin Chewable) 81 mg PO DAILY [facility] Last Admin: 10/08/16 08:42 Dose: 81 mg Atorvastatin Calcium (Lipitor) 10 mg PO DAILY [facility] Last Admin: 10/08/16 08:40 Dose: 10 mg Cholecalciferol (Vitamin D) 2,000 iu PO DAILY [facility] Last Admin: 10/08/16 08:41 Dose: 2,000 iu Famotidine (Pepcid) 40 mg PO HS [facility] Last Admin: 10/07/16 22:04 Dose: 40 mg Folic Acid (Folic Acid) 2 mg PO DAILY [facility] Last Admin: 10/08/16 08:44 Dose: 2 mg Furosemide (Lasix) 40 mg PO DAILY [facility] Last Admin: 10/08/16 11:55 Dose: 40 mg Hydroxychloroquine Sulfate (Plaquenil) 400 mg PO DAILY [facility] Last Admin: 10/08/16 08:45 Dose: 400 mg Vancomycin HCl 1 gm/ Sodium (Chloride) 250 mls @ 166.667 mls/hr IVPB Q12@0400, 1600 [facility] Last Admin: 10/08/16 17:23 Dose: 166.667 mls/hr Meropenem 1 gm/ Sodium (Chloride) 100 mls @ 100 mls/hr IVPB Q12 [facility] Last Admin: 10/08/16 10:04 Dose: 100 mls/hr Fluconazole (Diflucan Iv 100 Mg/50 Ml Ns) 50 mls @ 50 mls/hr IVPB DAILY [facility] Last Admin: 10/08/16 08:32 Dose: 50 mls/hr Methylprednisolone 60 mg/ (Sodium Chloride) 50 mls @ 100 mls/hr IVPB Q12 [facility] Metoprolol Succinate (Toprol Xl) 100 mg PO DAILY [facility] Last Admin: 10/08/16 12:24 Dose: Not Given Modafinil (Provigil) 200 mg PO DAILY [facility] Last Admin: 10/08/16 08:51 Dose: 200 mg Ondansetron HCl (Zofran Inj) 4 mg IVP Q6 PRN PRN Reason: Nausea/Vomiting - Labs Labs: 10/08/16 06:03 10/08/16 06:03 - Constitutional Appears: Toxic, In Acute Distress, Chronically Ill, Other (lethargic) - Head Exam Head Exam: NORMOCEPHALIC Additional comments: on bipap - Eye Exam Eye Exam: PERRL - ENT Exam ENT Exam: Mucous Membranes Dry - Neck Exam Neck Exam: Normal Inspection - Respiratory Exam Respiratory Exam: Accessory Muscle Use, Decreased Breath Sounds (bibasilar ), Prolonged Expiratory Phase, Rhonchi, Respiratory Distress Additional comments: coarse breath sounds bilaterally with diffuse rhonchi poor air entry - Cardiovascular Exam Cardiovascular Exam: REGULAR RHYTHM. absent: JVD - GI/Abdominal Exam GI & Abdominal Exam: Soft, Normal Bowel Sounds. absent: Distended, Guarding, Tenderness, Rebound - Rectal Exam Rectal Exam: Deferred - Extremities Exam Extremities Exam: absent: Pedal Edema Additional comments: chronic venous stasis changes to LE , cool to touch Multiple upper extremity and abdominal echymotic areas - Neurological Exam Additional comments: lethargic non responsive - Skin Skin Exam: Dry, Pallor, Warm Additional comments: multiple echymotic areas Assessment and Plan - Assessment and Plan (Free Text) Assessment: 66 year old female PMHx Severe COPD, CHF, HTN, HLD, RA, Chronic LE Edema, PVD, MAT, 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 Prior to TCU, she was admitted to the ICU for Acute on Chronic Resp Failure, COPD exacerbation and Pneumonia. Patient is well known to our service from prior admissions. She is a chronic CO2 retainer with PCO2 baseline 80. Readmitted to the ICU, she was placed Bipap in the ER with improvement of mental status, started on Duonebs, Solumedrol. At present very lethargic while on BIPAP with PCO2 102 1. Acute on Chronic Respiratory Failure with Hypoxia and Hypercapnea likely sec to COPD Exacerbation Very lethargic today with CO2 102 on ABG Pulmonary , Dr. Yusuf following on BIPAP RR 24 20/6/50 % patient is full code. is aware of patient's general condition Continue close monitoring on BIpap Continue Solumedrol , Duonebs, Acetazolamide 2. Metastatic squamous cell carcinoma of the lung Patient is being followed up in [facility] Recent PET scan showed metastatic disease 3. Altered mental status secondary to CO2 narcosis lethargic today Placed on Bipap and had improvement of mental status later in the day after increased RR 24 At present awake, oriented ( 7 PM ) 4. Bilateral pneumonia ID consulted - Dr Larsen on Meropenem, Diflucan and Vanco f/u Sputum c/s 5. Multifocal Atrial Tachycardia and Episode of A Fib ASA 81 mg PO daily Metoprolol 50 mg PO daily follows with Dr. Cole, cardiology as an outpatient currently not on anticoagulation 6. Chronic CHF (congestive heart failure), Diastolic Dysfunction/Pulm HTN Continue Metoprolol and Lasix 7. HTN (hypertension) BP stable on Metoprolol 8. Hyperlipidemia Atorvastatin 10 mg PO QHS 9. GERD (gastroesophageal reflux disease) Protonix 40 mg 10. Rheumatoid arthritis/Peripheral Neuropathy of Bilateral Feet History Interstitial Lung Disease Methotrexate 15 mg PO every Saturday- will hold for now as discussed with Dr Covarrubias Folic Acid Plaquenil 400 mg PO daily d/c Gabapentin 11. Peripheral Vascular Disease/Chronic Venous Insufficiency With chronic LE edema and venous stasis erythematous toes bilaterally and cool to touch Lac-hydrin lotion to dry skin LE Continue ASA 12. UTI Urine culture positive for Enteroccocus faecalis (09/24/16) repeat urine cx growing yeast Started on Diflucan continue Meropenem and Vanco 13. DVT prophylaxis Lovenox 40mg SC daily
[2016-10-08] MEDS: methylPREDNISolone 60 MG in Sodium Chloride 0.9% 50 ML IVPB SCH (19:59)
[2016-10-09 05:47] LABS: ABG ALLEN TEST YES; ABG MECHANICAL RATE 24; ARTERIAL BLOOD GAS HCO3 44.3 mmol/L (21-28); ARTERIAL BLOOD GAS O2 CAPACITY 13.7 mL/dL (16-24); ARTERIAL BLOOD GAS O2 CONTENT 13.1 ML/dL (15-23); ARTERIAL BLOOD GAS PH 7.36 (7.35-7.45); ARTERIAL BLOOD GAS PO2 63 mm/Hg (80-100); ARTERIAL BLOOD HGB O2 SAT 91.9 % (95.0-98.0); CARBOXYHEMOGLOBIN 2.3 % (0.5-1.5); HHB 4.4 % (0.0-5.0); METHEMOGLOBIN 1.5 % (0.0-3.0)
[2016-10-09 06:04] LABS: HEMATOCRIT 30.5 % (34.0-47.0); MEAN CELL VOLUME 107.8 fl (81.0-99.0); MEAN CORPUSCULAR HGB CONC 30.6 g/dL (33.0-37.0); RED CELL DISTRIBUTION WIDTH 16.8 % (11.5-14.5); WHITE BLOOD COUNT 13.6 K/uL (4.8-10.8)
[2016-10-09 06:20] LABS: BLOOD UREA NITROGEN 33 mg/dl (7-17); CALCIUM 9.1 mg/dL (8.4-10.2); CHLORIDE 98 mmol/L (98-107); GFR AFRICAN-AMERICAN > 60; GLUCOSE,RANDOM 161 mg/dL (65-105); POTASSIUM 3.4 MMOL/L (3.6-5.0); SODIUM 147 mmol/l (132-148)
[2016-10-09 06:30] LABS: CARBON DIOXIDE 45 mmol/L (22-30)
[2016-10-09] MEDS: Albuterol-Ipratrop 3 mg / 0.5 (3 ml) UD INH SCH ×4 (07:55→19:23)
--- NOTE | 2016-10-09 08:13 | CP.PCM.PN ---
Subjective - Date & Time of Evaluation Date of Evaluation: 10/09/16 Time of Evaluation: 08:11 - Subjective Subjective: Interim events reviewed. Had a more restful night with her at the bedside. Has been on BiPAP since yesterday AM @ 24BPM, I/E 20/6, O2 50%. AM ABG today reviewed. AM CXR pending. Awake, following commands, communicative. Heart rate increased this morning 130. Breath sounds are present bilaterally w/o audible wheeze. Air entry is diminished, especially at the bases. Dry rales are heard bilaterally. Ex[ectorated moderate amount of dark bloody sputum this morning. Abdomen is soft and fleshy with +BS. Dependant edema is unchanged ++. Will hold Plaquenil because of cardiac status. Solumedrol reduced from 125 to 60MG BID. Remains on BiPAP mask alternates with HFNC for the present time. Patient remains full code as per family wishes.' Prognosis is poor. Objective - Vital Signs/Intake and Output Vital Signs (last 24 hours): Temp Pulse Resp BP Pulse Ox 98 F 126 H 92 H 110/93 H 98 10/09/16 07:38 10/09/16 07:38 10/09/16 07:58 10/09/16 07:38 10/09/16 07:38 Intake and Output: 10/08/16 10/09/16 23:59 11:59 Intake Total 1140 390 Balance 1140 390 - Medications Medications: Current Medications Acetaminophen (Tylenol 325mg Tab) 650 mg PO Q6 PRN PRN Reason: Fever >100.4 F Acetazolamide (Diamox 250 Mg Tab) 500 mg PO TID [facility] Last Admin: 10/08/16 17:21 Dose: 500 mg Albuterol/Ipratropium (Duoneb 3 Mg/0.5 Mg (3 Ml) Ud) 3 ml INH RQID [facility] Last Admin: 10/09/16 07:55 Dose: 3 ml Aspirin (Aspirin Chewable) 81 mg PO DAILY [facility] Last Admin: 10/08/16 08:42 Dose: 81 mg Atorvastatin Calcium (Lipitor) 10 mg PO DAILY [facility] Last Admin: 10/08/16 08:40 Dose: 10 mg Cholecalciferol (Vitamin D) 2,000 iu PO DAILY [facility] Last Admin: 10/08/16 08:41 Dose: 2,000 iu Famotidine (Pepcid) 40 mg PO HS [facility] Last Admin: 10/08/16 21:02 Dose: 40 mg Folic Acid (Folic Acid) 2 mg PO DAILY [facility] Last Admin: 10/08/16 08:44 Dose: 2 mg Furosemide (Lasix) 40 mg PO DAILY [facility] Last Admin: 10/08/16 11:55 Dose: 40 mg Hydroxychloroquine Sulfate (Plaquenil) 400 mg PO DAILY [facility] Last Admin: 10/08/16 08:45 Dose: 400 mg Vancomycin HCl 1 gm/ Sodium (Chloride) 250 mls @ 166.667 mls/hr IVPB Q12@0400, 1600 [facility] Last Admin: 10/09/16 03:02 Dose: 166.667 mls/hr Meropenem 1 gm/ Sodium (Chloride) 100 mls @ 100 mls/hr IVPB Q12 [facility] Last Admin: 10/08/16 20:19 Dose: 100 mls/hr Fluconazole (Diflucan Iv 100 Mg/50 Ml Ns) 50 mls @ 50 mls/hr IVPB DAILY [facility] Last Admin: 10/08/16 08:32 Dose: 50 mls/hr Methylprednisolone 60 mg/ (Sodium Chloride) 50 mls @ 100 mls/hr IVPB Q12 [facility] Last Admin: 10/08/16 19:59 Dose: 100 mls/hr Potassium Chloride (Potassium Chloride 10 Meq/100 Ml) 100 mls @ 100 mls/hr IVPB Q1 [facility] Stop: 10/09/16 09:59 Metoprolol Succinate (Toprol Xl) 100 mg PO DAILY [facility] Last Admin: 10/08/16 20:20 Dose: 100 mg Modafinil (Provigil) 200 mg PO DAILY [facility] Last Admin: 10/08/16 08:51 Dose: 200 mg Ondansetron HCl (Zofran Inj) 4 mg IVP Q6 PRN PRN Reason: Nausea/Vomiting - Labs Labs: 10/09/16 05:20 10/09/16 05:20 Assessment and Plan (1) Pulmonary infiltrates on CXR Status: Acute (2) Acute on chronic respiratory failure with hypoxia and hypercapnia Status: Acute (3) Atrial fibrillation Status: Chronic (4) 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
[2016-10-09] MEDS: methylPREDNISolone 60 MG in Sodium Chloride 0.9% 50 ML IVPB SCH ×2 (09:14→21:00)
[2016-10-09] MEDS: Metoprolol Succinate 100 mg XL Tab PO SCH (09:17)
--- NOTE | 2016-10-09 09:18 | CP.PCM.PN ---
Subjective - Date & Time of Evaluation Date of Evaluation: 10/09/16 Time of Evaluation: 09:00 - Subjective Subjective: Patient seen and examined bedside.Chronically ill female lying in bed awake and alert , speaking with very muffled weak voice with modertae respiratory distress and prolonged expiratory phase At present on High flow O2 via NC 40 LPM FIO2 60 % saturating 93 % . Tolerating BIPAP overnight with RR 24 20/6 FIO2 50 % with ABG this AM PCo2 97 PO2 63 With coughing spells and some bloody sputum production. Afib on monitor with HR as high as 133 , afebrile, denies chest pain Able to rest overnight , with no acute issues Objective - Vital Signs/Intake and Output Vital Signs (last 24 hours): Temp Pulse Resp BP Pulse Ox 98 F 126 H 92 H 110/93 H 98 10/09/16 07:38 10/09/16 07:38 10/09/16 07:58 10/09/16 07:38 10/09/16 07:38 Intake and Output: 10/09/16 10/09/16 06:59 18:59 Intake Total 700 220 Balance 700 220 - Medications Medications: Current Medications Acetaminophen (Tylenol 325mg Tab) 650 mg PO Q6 PRN PRN Reason: Fever >100.4 F Acetazolamide (Diamox 250 Mg Tab) 500 mg PO TID [facility] Last Admin: 10/08/16 17:21 Dose: 500 mg Albuterol/Ipratropium (Duoneb 3 Mg/0.5 Mg (3 Ml) Ud) 3 ml INH RQID [facility] Last Admin: 10/09/16 07:55 Dose: 3 ml Aspirin (Aspirin Chewable) 81 mg PO DAILY [facility] Last Admin: 10/08/16 08:42 Dose: 81 mg Atorvastatin Calcium (Lipitor) 10 mg PO DAILY [facility] Last Admin: 10/08/16 08:40 Dose: 10 mg Cholecalciferol (Vitamin D) 2,000 iu PO DAILY [facility] Last Admin: 10/08/16 08:41 Dose: 2,000 iu Famotidine (Pepcid) 40 mg PO HS [facility] Last Admin: 10/08/16 21:02 Dose: 40 mg Folic Acid (Folic Acid) 2 mg PO DAILY [facility] Last Admin: 10/08/16 08:44 Dose: 2 mg Furosemide (Lasix) 40 mg PO DAILY [facility] Last Admin: 10/08/16 11:55 Dose: 40 mg Hydroxychloroquine Sulfate (Plaquenil) 400 mg PO DAILY [facility] Last Admin: 10/08/16 08:45 Dose: 400 mg Vancomycin HCl 1 gm/ Sodium (Chloride) 250 mls @ 166.667 mls/hr IVPB Q12@0400, 1600 [facility] Last Admin: 10/09/16 03:02 Dose: 166.667 mls/hr Meropenem 1 gm/ Sodium (Chloride) 100 mls @ 100 mls/hr IVPB Q12 [facility] Last Admin: 10/08/16 20:19 Dose: 100 mls/hr Fluconazole (Diflucan Iv 100 Mg/50 Ml Ns) 50 mls @ 50 mls/hr IVPB DAILY [facility] Last Admin: 10/08/16 08:32 Dose: 50 mls/hr Methylprednisolone 60 mg/ (Sodium Chloride) 50 mls @ 100 mls/hr IVPB Q12 [facility] Last Admin: 10/08/16 19:59 Dose: 100 mls/hr Potassium Chloride (Potassium Chloride 10 Meq/100 Ml) 100 mls @ 100 mls/hr IVPB Q1 [facility] Stop: 10/09/16 09:59 Metoprolol Succinate (Toprol Xl) 100 mg PO DAILY [facility] Last Admin: 10/08/16 20:20 Dose: 100 mg Modafinil (Provigil) 200 mg PO DAILY [facility] Last Admin: 10/08/16 08:51 Dose: 200 mg Ondansetron HCl (Zofran Inj) 4 mg IVP Q6 PRN PRN Reason: Nausea/Vomiting - Labs Labs: 10/09/16 05:20 10/09/16 05:20 - Constitutional Appears: Chronically Ill, Other (modertae respiratory distress ) - Head Exam Head Exam: ATRAUMATIC, NORMAL INSPECTION, NORMOCEPHALIC - Eye Exam Eye Exam: EOMI, PERRL Pupil Exam: NORMAL ACCOMODATION - ENT Exam ENT Exam: Mucous Membranes Dry, Normal Exam - Neck Exam Neck Exam: Normal Inspection - Respiratory Exam Respiratory Exam: Decreased Breath Sounds (bibasilar ), Prolonged Expiratory Phase, Respiratory Distress. absent: Wheezes Additional comments: coarse breath sounds bilaterally - Cardiovascular Exam Cardiovascular Exam: Tachycardia, Irregular Rhythm - GI/Abdominal Exam GI & Abdominal Exam: Soft, Normal Bowel Sounds. absent: Distended, Guarding, Tenderness, Rebound - Rectal Exam Rectal Exam: Deferred - Extremities Exam Extremities Exam: absent: Calf Tenderness Additional comments: bilateral lower extremity warm to touch , RLE cooler , pulses decreased , with chronic erythematous skin changes - Neurological Exam Neurological Exam: Alert, Awake, CN II-XII Intact - Psychiatric Exam Psychiatric exam: Normal Affect - Skin Skin Exam: Dry Additional comments: multiple echymotic areas to abdomen and upper extremities LE chronic erythematos skin changes with leathery appearance Assessment and Plan - Assessment and Plan (Free Text) Assessment: 66 year old female PMHx Severe COPD, CHF, HTN, HLD, RA, Chronic LE Edema, PVD, MAT, 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 Prior to TCU, she was admitted to the ICU for Acute on Chronic Resp Failure, COPD exacerbation and Pneumonia. Patient is well known to our service from prior admissions. She is a chronic CO2 retainer with PCO2 baseline 80. Readmitted to the ICU, due to CO2 narcosis and was placed on Bipap in the ER with improvement of mental status, started on Duonebs, Solumedrol. Patient has very poor prognosis due to her respiratory status. She has episodes of lethargy due to CO2 narcosis but has been able to respond to BIPAP and high flow O2 ventilation so far ,avoiding intubation . Family requesting full code At present awake , alert oriented on High Flow O2 40 LPM FIO2 60 % 1. Acute on Chronic Respiratory Failure with Hypoxia and Hypercapnea likely sec to COPD Exacerbation Her mental status improved from yesterday , more awake and alert at present, tolerating BIPAp at night ad high flow O2 Pulmonary , Dr. Yusuf following Will continue BIPAP RR 24 20/6/50 % alternating with high Flow O2 40 LPM FIO2 60 % patient is full code. is aware of patient's general condition Continue Solumedrol , Duonebs, Acetazolamide Tapered Solumedrol 60 mg IV Q12 Patient has very poor prognosis 2. Metastatic squamous cell carcinoma of the lung Patient has been following up in [facility] Recent PET scan showed metastatic disease 3. Altered mental status secondary to CO2 narcosis more awake today Will continue BIPAP RR 24 20/6/50 % alternating with high Flow O2 40 LPM FIO2 60 % 4. Bilateral pneumonia ID consulted - Dr Larsen on Meropenem, Diflucan and Vanco f/u Sputum c/s 5. Multifocal Atrial Tachycardia and Episode of A Fib uncontrolled today with HR 133 ASA 81 mg PO daily Continue Metoprolol 100 mg PO daily follows with Dr. Cole, cardiology as an outpatient . currently not on anticoagulation Replace K d/c Plaquenil 6. Chronic CHF (congestive heart failure), Diastolic Dysfunction/Pulm HTN Continue Metoprolol and Lasix 7. HTN (hypertension) BP stable on Metoprolol 8. Hyperlipidemia Atorvastatin 10 mg PO QHS 9. GERD (gastroesophageal reflux disease) Protonix 40 mg 10. Rheumatoid arthritis/Peripheral Neuropathy of Bilateral Feet History Interstitial Lung Disease Methotrexate 15 mg PO every Saturday- will hold for now as discussed with Dr Covarrubias Folic Acid d/c Plaquenil due to cardiac arrythmias d/c Gabapentin due to lethargy 11. Peripheral Vascular Disease/Chronic Venous Insufficiency With chronic LE edema and venous stasis erythematous toes bilaterally and cool to touch Lac-hydrin lotion to dry skin LE Continue ASA 12. UTI Urine culture positive for Enteroccocus faecalis (09/24/16) repeat urine cx growing yeast Started on Diflucan continue Meropenem and Vanco 13. DVT prophylaxis Lovenox 40mg SC daily
[2016-10-09] MEDS: Fluconazole IV 100mg/50 ml NS 50 ML IVPB SCH (10:07)
[2016-10-09] MEDS: Potassium CL 10mEq/100ml 100 ML IVPB SCH ×2 (10:46→12:13)
--- NOTE | 2016-10-09 11:07 | RAD ---
PROCEDURE: CHEST RADIOGRAPH, 1 VIEW HISTORY: respiratory insufficiency COMPARISON: Prior chest radiograph 10/07/2016 FINDINGS: LUNGS: No interval change in bilateral mixed interstitial and alveolar infiltrates at the medial mid left lung extending to the apex and at the lateral right mid lung zone extending to the right base. No definitive pleural effusion appreciate this time and there is no definite pulmonary derangement identified either. PLEURA: No pneumothorax or pleural fluid seen. CARDIOVASCULAR: Cardiac silhouette appears stable. No pulmonary vascular derangement. OSSEOUS STRUCTURES: No significant abnormalities. VISUALIZED UPPER ABDOMEN: Normal. OTHER FINDINGS: Right sided PICC unchanged in position. IMPRESSION: Stable bilateral infiltrates are appreciated which appear mixed alveolar and interstitial without interval pleural effusion or pneumothorax. Right PICC unchanged in position.
[2016-10-09] MEDS: Meropenem 1 GM in Sodium Chloride 0.9% 100 ML IVPB SCH ×2 (14:29→21:13)
--- NOTE | 2016-10-09 15:36 | PN ---
CRITICAL CARE PROGRESS NOTE DATE: 10/09/2016 SUBJECTIVE: The patient is seen and examined at the bedside. Case was discussed in detail in rounds with multidisciplinary ICU team. Management were formulated. Events since admission and overnight reviewed. A 66-year-old female with severe chronic obstructive pulmonary disease, diastolic heart failure, hypertension, hyperlipidemia, rheumatoid arthritis, chronic lower extremity edema, peripheral vascular disease, multifocal tachycardia with episodes of atrial fibrillation and recently diagnosed metastatic squamous cell carcinoma of the left lung. Admitted with acute on chronic respiratory failure, bilateral pneumonia, and bilateral pleural effusion. Overnight on BiPAP, rate 24, IAP 20, EPAP 6, on 50% FiO2, tolerated well, had a restful night this morning. Alert, awake, and follows commands appropriate. Had breakfast assisted by the patient's . More wakeful, able to follow commands appropriate. PHYSICAL EXAMINATION: VITAL SIGNS: Temperature 98, heart rate 126-130 regular, blood pressure 105/61, respiratory rate 19-32. Thoracoabdominal, intake 1580, output not documented, weight 189 pounds. HEENT: Pupils were reactive. Conjunctiva is ingested. No nystagmus. Trachea, central. CHEST: Bilateral breath sounds. Markedly diminished scattered rhonchi. HEART: Rhythm regular. No audible murmur. ABDOMEN: Bowel sounds present and soft. Nondistended. EXTREMITIES: Dependent edema, dorsalis pedis palpable, equal in intensity, reduced. NEUROLOGIC: Nonfocal. LABORATORY DATA: WBC 13.6, hemoglobin 9.3, hematocrit 30.5, platelet count 103. SMA-7, sodium 147, potassium 3.4, chloride 98, CO2 45, blood urea nitrogen 33, creatinine 0.9, random glucose 161, calcium 9.1. Vanco trough level 18.5. ABG, pH of 7.36, pCO2 of 697, pO2 of 63 saturation 91.9 on BiPAP, rate 14, 50% 20/6. CURRENT MEDICATIONS: Tylenol 650 mg q.6h., p.r.n., Diamox 500 mg p.o. three times daily, DuoNeb 300 mL q.i.d., aspirin 81 mg daily, Lipitor 10 mg daily, vitamin D 2000 units p.o. daily, Pepcid 40 mg p.o. bedtime, fluconazole of 100 mg daily, folic acid 2 mg daily, Lasix 40 mg p.o. daily, vancomycin 1 g IV q.12h., potassium chloride supplements, Zofran 4 mg IV q.6h. p.r.n. ,Modafinil_ 200 mg p.o. daily, metoprolol 100 mg p.o. daily, Solu-Medrol 60 mg IV q.12h., meropenem 1 g IV q.12h., furosemide 40 mg p.o., folic acid 2 mg daily, fluconazole 100 mg daily. IMPRESSION: 1. Neuro: Resolving toxic metabolic encephalopathy, now alert and oriented to name, place, and time. 2. Pulmonary: Acute on chronic respiratory failure with hypercapnia and hypoxemia. Exacerbation of chronic obstructive pulmonary disease, still requiring BiPAP due to CO2 retention, currently on high flow nasal with 60% alternating with the BiPAP at night rate24,20/6 50%. Continue bronchodilator, and Solu-Medrol taper to 60 mg IV q.12h., reduce acetazolamide to 500 mg twice daily. Prognosis remains guarded. 3. Hematology: Anemia of choric disease, thrombocytopenia, noted mild-to- moderate expectoration of bloody sputum this morning, closely monitor. Not on anticoagulation. 4. Oncology: Metastatic squamous cell carcinoma of the left lung with metastasis.Awaiting gene expression testing from [facility],. 5. Infectious disease: Bilateral pneumonia followed by ID consult on meropenem, Diflucan, and vancomycin as per ID consult. 6. Cardiac: Multifocal atrial tachycardia with episodes of atrial fibrillation on metoprolol 100 mg daily, aspirin 81 mg daily, hold anticoagulation. Potassium supplement.l. Hypertension, controlled. Chronic diastolic heart failure. 7. GI: Gastroesophageal reflux disease on Protonix. History of rheumatoid arthritis, peripheral neuropathy for bilateral feet with interstitial lung disease, on methotrexate 15 mg p.o. once a week. Continue folic acid ,off Plaquenil due to cardiac arrhythmia, gabapentin discontinued due to lethargy . Peripheral vascular disease/chronic venous insufficiency, chronic lower extremity edema, and venous stasis, erythematous toes bilaterally and cold to touch.on Lac-Hydrin lotion for dry skin lower extremity. Continue DVT and GI prophylaxis. Closely monitor thrombocytopenia and further episodes of hemoptysis. Pedro Cifuentes MD MTDD
--- NOTE | 2016-10-09 18:16 | CP.PCM.PN ---
Subjective - Date & Time of Evaluation Date of Evaluation: 10/09/16 Time of Evaluation: 18:14 - Subjective Subjective: I D NOTE WBC:13.1 NO REAL CLINICAL CHANGECONTINUE SAME RX Objective - Vital Signs/Intake and Output Vital Signs (last 24 hours): Temp Pulse Resp BP Pulse Ox 98.2 F 115 H 17 97/64 L 92 L 10/09/16 16:00 10/09/16 16:00 10/09/16 16:00 10/09/16 16:00 10/09/16 16:00 Intake and Output: 10/09/16 10/09/16 06:59 18:59 Intake Total 700 1000 Balance 700 1000 - Medications Medications: Current Medications Acetaminophen (Tylenol 325mg Tab) 650 mg PO Q6 PRN PRN Reason: Fever >100.4 F Acetazolamide (Diamox 250 Mg Tab) 500 mg PO TID [facility] Last Admin: 10/09/16 16:06 Dose: 500 mg Albuterol/Ipratropium (Duoneb 3 Mg/0.5 Mg (3 Ml) Ud) 3 ml INH RQID [facility] Last Admin: 10/09/16 15:34 Dose: 3 ml Aspirin (Aspirin Chewable) 81 mg PO DAILY [facility] Last Admin: 10/09/16 09:17 Dose: 81 mg Atorvastatin Calcium (Lipitor) 10 mg PO DAILY [facility] Last Admin: 10/09/16 09:17 Dose: 10 mg Cholecalciferol (Vitamin D) 2,000 iu PO DAILY [facility] Last Admin: 10/09/16 09:21 Dose: 2,000 iu Famotidine (Pepcid) 40 mg PO HS [facility] Last Admin: 10/08/16 21:02 Dose: 40 mg Folic Acid (Folic Acid) 2 mg PO DAILY [facility] Last Admin: 10/09/16 09:20 Dose: 2 mg Furosemide (Lasix) 40 mg PO DAILY [facility] Last Admin: 10/09/16 10:48 Dose: 40 mg Hydroxychloroquine Sulfate (Plaquenil) 400 mg PO DAILY [facility] Last Admin: 10/08/16 08:45 Dose: 400 mg Vancomycin HCl 1 gm/ Sodium (Chloride) 250 mls @ 166.667 mls/hr IVPB Q12@0400, 1600 [facility] Last Admin: 10/09/16 16:05 Dose: 166.667 mls/hr Meropenem 1 gm/ Sodium (Chloride) 100 mls @ 100 mls/hr IVPB Q12 [facility] Last Admin: 10/09/16 14:29 Dose: 100 mls/hr Fluconazole (Diflucan Iv 100 Mg/50 Ml Ns) 50 mls @ 50 mls/hr IVPB DAILY [facility] Last Admin: 10/09/16 10:07 Dose: 50 mls/hr Methylprednisolone 60 mg/ (Sodium Chloride) 50 mls @ 100 mls/hr IVPB Q12 [facility] Last Admin: 10/09/16 09:14 Dose: 100 mls/hr Metoprolol Succinate (Toprol Xl) 100 mg PO DAILY [facility] Last Admin: 10/09/16 09:17 Dose: 100 mg Modafinil (Provigil) 200 mg PO DAILY [facility] Last Admin: 10/09/16 10:48 Dose: 200 mg Ondansetron HCl (Zofran Inj) 4 mg IVP Q6 PRN PRN Reason: Nausea/Vomiting - Labs Labs: 10/09/16 05:20 10/09/16 05:20
[2016-10-09] MEDS: acetaZOLAMIDE 500 mg SR Cap PO SCH (21:13)
[2016-10-10] MEDS ORDERED: Sterile Water 10 ML IV ONE (06:17)
[2016-10-10 07:29] LABS: BLOOD UREA NITROGEN 31 mg/dl (7-17); CALCIUM 8.9 mg/dL (8.4-10.2); CHLORIDE 96 mmol/L (98-107); GFR AFRICAN-AMERICAN > 60; GLUCOSE,RANDOM 169 mg/dL (65-105); POTASSIUM 3.9 MMOL/L (3.6-5.0); SODIUM 143 mmol/l (132-148)
[2016-10-10 07:31] LABS: HEMATOCRIT 30.8 % (34.0-47.0); MEAN CELL VOLUME 107.2 fl (81.0-99.0); MEAN CORPUSCULAR HEMOGLOBIN 33.4 pg (27.0-31.0); MEAN CORPUSCULAR HGB CONC 31.2 g/dL (33.0-37.0); RED CELL DISTRIBUTION WIDTH 16.3 % (11.5-14.5); WHITE BLOOD COUNT 11.6 K/uL (4.8-10.8)
[2016-10-10 07:49] LABS: CARBON DIOXIDE 46 mmol/L (22-30)
[2016-10-10] MEDS: Albuterol-Ipratrop 3 mg / 0.5 (3 ml) UD INH SCH ×4 (08:09→19:33)
[2016-10-10] MEDS: acetaZOLAMIDE 500 mg SR Cap PO SCH ×2 (08:22→20:01)
[2016-10-10] MEDS: Fluconazole IV 100mg/50 ml NS 50 ML IVPB SCH (08:23)
[2016-10-10] MEDS: methylPREDNISolone 60 MG in Sodium Chloride 0.9% 50 ML IVPB SCH ×2 (08:26→20:00)
[2016-10-10] MEDS: Metoprolol Succinate 100 mg XL Tab PO SCH (08:26)
--- NOTE | 2016-10-10 08:40 | CP.PCM.PN ---
Subjective - Date & Time of Evaluation Date of Evaluation: 10/10/16 Time of Evaluation: 08:20 - Subjective Subjective: Seen on AM rounds with at bedside. Discussion was had between and regarding possible intubation. Apparently she has expressed desire to NOT be intubated, and I will discuss this with her today. Presently on NPPV mask ventilation, awake and fairly alert. Neb treatment ongoing at present. Will switch over to HFNC after treatment and discuss the above with her. AM labs reviewed. Less hemoptysis overnight. Breath sounds present bilaterally with dry to medium rales (early) bilaterally. Inspiratory phase is shortened. No audible wheezes heard this morning. No dullness on percussion of the anterior chest wall. Heart rate around 110 BPM irregular. Depenedant edema ++. Prognosis is poor with advanced lung disease/hypercapnia. Multiple active comorbidities including metastatic SCC left upper lobe. Will discuss potential DNI status with her this morning and make addendum to the record. Objective - Vital Signs/Intake and Output Vital Signs (last 24 hours): Temp Pulse Resp BP Pulse Ox 98.8 F 114 H 18 94/56 L 94 L 10/10/16 07:33 10/10/16 08:13 10/10/16 07:33 10/10/16 06:00 10/10/16 07:33 Intake and Output: 10/09/16 10/10/16 23:59 11:59 Intake Total 890 470 Output Total 0 Balance 890 470 - Medications Medications: Current Medications Acetaminophen (Tylenol 325mg Tab) 650 mg PO Q6 PRN PRN Reason: Fever >100.4 F Acetazolamide (Diamox Sequels 500 Mg Sr Cap) 500 mg PO Q12 [facility] Last Admin: 10/09/16 21:13 Dose: 500 mg Albuterol/Ipratropium (Duoneb 3 Mg/0.5 Mg (3 Ml) Ud) 3 ml INH RQID [facility] Last Admin: 10/10/16 08:09 Dose: 3 ml Aspirin (Aspirin Chewable) 81 mg PO DAILY [facility] Last Admin: 10/09/16 09:17 Dose: 81 mg Cholecalciferol (Vitamin D) 2,000 iu PO DAILY [facility] Last Admin: 10/09/16 09:21 Dose: 2,000 iu Famotidine (Pepcid) 40 mg PO HS [facility] Last Admin: 10/09/16 21:12 Dose: 40 mg Folic Acid (Folic Acid) 2 mg PO DAILY [facility] Last Admin: 10/09/16 09:20 Dose: 2 mg Hydroxychloroquine Sulfate (Plaquenil) 400 mg PO DAILY [facility] Last Admin: 10/08/16 08:45 Dose: 400 mg Vancomycin HCl 1 gm/ Sodium (Chloride) 250 mls @ 166.667 mls/hr IVPB Q12@0400, 1600 [facility] Last Admin: 10/10/16 03:23 Dose: 166.667 mls/hr Meropenem 1 gm/ Sodium (Chloride) 100 mls @ 100 mls/hr IVPB Q12 [facility] Last Admin: 10/09/16 21:13 Dose: 100 mls/hr Fluconazole (Diflucan Iv 100 Mg/50 Ml Ns) 50 mls @ 50 mls/hr IVPB DAILY [facility] Last Admin: 10/09/16 10:07 Dose: 50 mls/hr Methylprednisolone 60 mg/ (Sodium Chloride) 50 mls @ 100 mls/hr IVPB Q12 [facility] Last Admin: 10/09/16 21:00 Dose: 100 mls/hr Metoprolol Succinate (Toprol Xl) 100 mg PO DAILY [facility] Last Admin: 10/09/16 09:17 Dose: 100 mg Modafinil (Provigil) 200 mg PO DAILY [facility] Last Admin: 10/09/16 10:48 Dose: 200 mg Ondansetron HCl (Zofran Inj) 4 mg IVP Q6 PRN PRN Reason: Nausea/Vomiting - Labs Labs: 10/10/16 07:12 10/10/16 07:12 Assessment and Plan (1) Pulmonary infiltrates on CXR Status: Acute (2) Acute on chronic respiratory failure with hypoxia and hypercapnia Status: Acute (3) Atrial fibrillation Status: Chronic (4) 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
--- NOTE | 2016-10-10 09:42 | CARD ---
APPROVED REPORT EKG Measurement Heart [id number] <Conclusion> Atrial fibrillation with rapid ventricular response ST & T wave abnormality, consider anterolateral ischemia Abnormal ECG
--- NOTE | 2016-10-10 10:19 | CP.CCUPN ---
CCU Subjective - Physician Review Events Since Last Encounter (Free Text): 10/10/16 10:17 Patient is anxious, taken off BIPAP and started on high flow oxygen. CCU Objective - Vital Signs / Intake & Output Vital Signs (Last 4 hours): Vital Signs Temp Pulse Resp BP Pulse Ox 10/10/16 08:26 126 H 105/59 L 10/10/16 08:13 114 H 10/10/16 07:33 98.8 F 128 H 18 94 L Intake and Output (Last 8hrs): Intake & Output 10/09/16 10/10/16 10/10/16 22:59 06:59 14:59 Intake Total 450 470 Output Total 0 Balance 450 470 Intake: IV 160 320 Oral 290 150 Output: Stool 0 Other: # Bowel Movements 1 1 - Physical Exam Head: Positive for: Normocephalic Pupils: Positive for: PERRL Extroacular Muscles: Positive for: EOMI Conjunctiva: Positive for: Normal. Negative for: Icteric Mouth: Positive for: Moist Mucous Membranes. Negative for: Drooling Pharnyx: Positive for: Normal. Negative for: ERYTHEMA, EXUDATE Neck: Positive for: Normal Range of Motion. Negative for: JVD Respiratory/Chest: Positive for: Decreased Breath Sounds. Negative for: Accessory Muscle Use, Wheezes Cardiovascular: Positive for: Regular Rate and Rhythm, Normal S1, S2. Negative for: Murmurs, Rub Abdomen: Positive for: Normal Bowel Sounds. Negative for: Tenderness, Distention Upper Extremity: Positive for: Other (RUE PICC) Lower Extremity: Negative for: Edema, CALF TENDERNESS, Cyanosis Neurological: Positive for: GCS=15, CN II-XII Intact, Motor Func Grossly Intact. Negative for: Speech Normal Skin: Positive for: Warm, Other (scattered areas of ecchymoses over both upper arms). Negative for: Rashes - Medications Active Medications: Active Medications Generic Name Dose Route Start Last Admin Trade Name Freq PRN Reason Stop Dose Admin Acetaminophen 650 mg 10/05/16 16:41 Tylenol 325mg Tab PO Q6 PRN Fever >100.4 F Acetazolamide 500 mg 10/09/16 21:00 10/10/16 08:22 Diamox Sequels 500 Mg Sr Cap PO 500 mg Q12 [facility] Administration Albuterol/Ipratropium 3 ml 10/05/16 20:00 10/10/16 08:09 Duoneb 3 Mg/0.5 Mg (3 Ml) Ud INH 3 ml RQID [facility] Administration Aspirin 81 mg 10/06/16 09:00 10/10/16 08:21 Aspirin Chewable PO 81 mg DAILY [facility] Administration Cholecalciferol 2,000 iu 10/06/16 09:00 10/10/16 08:27 Vitamin D PO 2,000 iu DAILY [facility] Administration Famotidine 40 mg 10/05/16 22:00 10/09/16 21:12 Pepcid PO 40 mg HS BROWN Administration Folic Acid 2 mg 10/06/16 09:00 10/10/16 08:24 Folic Acid PO 2 mg DAILY [facility] Administration Hydroxychloroquine Sulfate 400 mg 10/06/16 09:00 10/08/16 08:45 Plaquenil PO 400 mg DAILY [facility] Administration Vancomycin HCl 1 gm/ Sodium 250 mls @ 166.667 mls/hr 10/07/16 04:00 10/10/16 03:23 Chloride IVPB 166.667 mls/hr Q12@0400,1600 [facility] Administration Meropenem 1 gm/ Sodium 100 mls @ 100 mls/hr 10/07/16 21:00 10/09/16 21:13 Chloride IVPB 100 mls/hr Q12 [facility] Administration Fluconazole 50 mls @ 50 mls/hr 10/08/16 09:00 10/10/16 08:23 Diflucan Iv 100 Mg/50 Ml Ns IVPB 50 mls/hr DAILY [facility] Administration Methylprednisolone 60 mg/ 50 mls @ 100 mls/hr 10/08/16 21:00 10/10/16 08:26 Sodium Chloride IVPB 100 mls/hr Q12 [facility] Administration Metoprolol Succinate 100 mg 10/06/16 09:00 10/10/16 08:26 Toprol Xl PO 100 mg DAILY [facility] Administration Modafinil 200 mg 10/06/16 09:00 10/10/16 08:29 Provigil PO 200 mg DAILY [facility] Administration Ondansetron HCl 4 mg 10/05/16 16:40 Zofran Inj IVP Q6 PRN Nausea/Vomiting - Patient Studies Lab Studies: Microbiology Studies 10/07/16 15:15 Gram Stain - Final Sputum Sputum Culture - Final No growth. Lab Studies 10/10/16 10/10/16 Range/Units 07:12 07:12 WBC 11.6 H (4.8-10.8) K/uL RBC 2.88 L (3.80-5.20) Mil/uL Hgb 9.6 L (12.0-16.0) g/dL Hct 30.8 L (34.0-47.0) % MCV 107.2 H (81.0-99.0) fl MCH 33.4 H (27.0-31.0) pg MCHC 31.2 L (33.0-37.0) g/dL RDW 16.3 H (11.5-14.5) % Plt Count 100 L (130-400) K/uL Sodium 143 (132-148) mmol/l Potassium 3.9 (3.6-5.0) MMOL/L Chloride 96 L (98-107) mmol/L Carbon Dioxide 46 H* (22-30) mmol/L Anion Gap 5 L (10-20) BUN 31 H (7-17) mg/dl Creatinine 0.8 (0.7-1.2) mg/dL Est GFR ( Amer) > 60 Est GFR (Non-Af Amer) > 60 Random Glucose 169 H (65-105) mg/dL Calcium 8.9 (8.4-10.2) mg/dL Laboratory Results - last 24 hr 10/10/16 10/10/16 07:12 07:12 WBC 11.6 H RBC 2.88 L Hgb 9.6 L Hct 30.8 L MCV 107.2 H MCH 33.4 H MCHC 31.2 L RDW 16.3 H Plt Count 100 L Sodium 143 Potassium 3.9 Chloride 96 L Carbon Dioxide 46 H* Anion Gap 5 L BUN 31 H Creatinine 0.8 Est GFR ( Amer) > 60 Est GFR (Non-Af Amer) > 60 Random Glucose 169 H Calcium 8.9 EKG/Cardiology Studies: Cardiology / EKG Studies 10/09/16 22:49 EKG [ELECTROCARDIOGRAM] Stat Comment: Mode Of Transportation: PORTABLE Reason For Exam: elevated Heart rate R/O A-Fib RVR. Fingerstick Blood Sugar Results: 264 Review of Systems - Review of Systems All systems: reviewed and no additional remarkable complaints except - Respiratory Respiratory: Dyspnea - Psychiatric Psychiatric: Anxiety Critical Care Progress Note - Nutrition Nutrition: Nutrition Category Date Time Status Regular Diet [DIET] Diets 10/05/16 Dinner Active Assessment/Plan (1) Acute on chronic respiratory failure with hypoxia and hypercapnia Assessment and plan: 66yo F. 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 p/w acute on chronic respiratory failure secondary to bilateral pneumonia with effusions. Neuro: Alert and oriented 3 Pulm: Acute on chronic respiratory failure with hypercapnia and hypoxemia, Chronic CO2 retainer. patient transitioned from BiPAP to high flow oxygen. Continue duo nebs, IV steroids. Patient making decision about intubation status. Acetazolamide to hopefully wean off of BIPAP, questionable efficacy. CV: Multifocal atrial tachycardia with episodes of atrial fibrillation, continue beta tacos 100mg po daily. Still not rate controlled, deisy Bolus with cardizem IV and starting drip. Hem: anemia of chronic disease, no acute issues. Aspirin for CHF. Renal: no acute issue, urine output wnl, will monitor. Endo: no acute issues, monitoring glucose levels. Rheum: Rheumatoid arthritis continue methotrexate, Plaquenil stopped secondary to suspected arrhythmia. GI: regular diet with pulmocare supplementation. ID: Severe sepsis secondary to bilateral pneumonia continue meropenem, Diflucan , vancomycin. DVT proph - lovenox GI proph - Pepcid clark for strict I/O's during acute illness Code status - full code Critical Care Time spent 35 minutes Multi-disciplinary rounds were performed with house staff, nursing, speech therapy, respiratory therapy, pharmacy and nutrition with integrated input from the primary team/attending and other consulting services. The documented time is cumulative and includes review of patient data/exams/labs/chart review and examination of the patient on rounds and throughout the day; time is exclusive of any procedures or teaching time. Current Visit: No Status: Acute Priority: High Comment: ALBUTEROL/Atrovent Nebs q6h PRN IV Vanco, Zithromax and Zosyn IV Solumedrol Pulmonary evaluation appretiated Aggressive pulmonary toilet, chest PT, suctioning Wean off BIPAP keep SaO2 >92%
[2016-10-10] MEDS: Meropenem 1 GM in Sodium Chloride 0.9% 100 ML IVPB SCH ×2 (12:05→21:00)
--- NOTE | 2016-10-10 12:05 | CP.PCM.PN ---
Subjective - Date & Time of Evaluation Date of Evaluation: 10/10/16 Time of Evaluation: 11:30 - Subjective Subjective: Pt is now on High Flow Oxygen 40L/60% ( since 7:30 this am) States that she had a good breakfast No fever Tachycardic ( up to 150) - Outside Residential Sales Professional just gave Cardizem bolus an she was started on cardizem drip no CP no abd pain Prognosis remains poor Objective - Vital Signs/Intake and Output Vital Signs (last 24 hours): Temp Pulse Resp BP Pulse Ox 98.8 F 126 H 18 105/59 L 94 L 10/10/16 07:33 10/10/16 08:26 10/10/16 11:28 10/10/16 08:26 10/10/16 07:33 Intake and Output: 10/10/16 10/10/16 06:59 18:59 Intake Total 680 Output Total 0 Balance 680 - Medications Medications: Current Medications Acetaminophen (Tylenol 325mg Tab) 650 mg PO Q6 PRN PRN Reason: Fever >100.4 F Acetazolamide (Diamox Sequels 500 Mg Sr Cap) 500 mg PO Q12 [facility] Last Admin: 10/10/16 08:22 Dose: 500 mg Albuterol/Ipratropium (Duoneb 3 Mg/0.5 Mg (3 Ml) Ud) 3 ml INH RQID [facility] Last Admin: 10/10/16 11:26 Dose: 3 ml Aspirin (Aspirin Chewable) 81 mg PO DAILY [facility] Last Admin: 10/10/16 08:21 Dose: 81 mg Cholecalciferol (Vitamin D) 2,000 iu PO DAILY [facility] Last Admin: 10/10/16 08:27 Dose: 2,000 iu Enoxaparin Sodium (Lovenox) 40 mg SC DAILY [facility] PRN Reason: Protocol Famotidine (Pepcid) 40 mg PO HS [facility] Last Admin: 10/09/16 21:12 Dose: 40 mg Folic Acid (Folic Acid) 2 mg PO DAILY [facility] Last Admin: 10/10/16 08:24 Dose: 2 mg Hydroxychloroquine Sulfate (Plaquenil) 400 mg PO DAILY [facility] Last Admin: 10/08/16 08:45 Dose: 400 mg Vancomycin HCl 1 gm/ Sodium (Chloride) 250 mls @ 166.667 mls/hr IVPB Q12@0400, 1600 [facility] Last Admin: 10/10/16 03:23 Dose: 166.667 mls/hr Meropenem 1 gm/ Sodium (Chloride) 100 mls @ 100 mls/hr IVPB Q12 [facility] Last Admin: 10/09/16 21:13 Dose: 100 mls/hr Fluconazole (Diflucan Iv 100 Mg/50 Ml Ns) 50 mls @ 50 mls/hr IVPB DAILY [facility] Last Admin: 10/10/16 08:23 Dose: 50 mls/hr Methylprednisolone 60 mg/ (Sodium Chloride) 50 mls @ 100 mls/hr IVPB Q12 [facility] Last Admin: 10/10/16 08:26 Dose: 100 mls/hr Diltiazem HCl 125 mg/ Sodium (Chloride) 125 mls @ 5 mls/hr IV .Q24H ONE; 5 MG/ HR PRN Reason: Protocol Stop: 10/11/16 11:09 Metoprolol Succinate (Toprol Xl) 100 mg PO DAILY [facility] Last Admin: 10/10/16 08:26 Dose: 100 mg Modafinil (Provigil) 200 mg PO DAILY [facility] Last Admin: 10/10/16 08:29 Dose: 200 mg Ondansetron HCl (Zofran Inj) 4 mg IVP Q6 PRN PRN Reason: Nausea/Vomiting - Labs Labs: 10/10/16 07:12 10/10/16 07:12 - Constitutional Appears: Older Than Stated Age, Chronically Ill - Head Exam Head Exam: NORMAL INSPECTION, NORMOCEPHALIC - Eye Exam Eye Exam: EOMI, Normal appearance, PERRL - ENT Exam ENT Exam: Mucous Membranes Dry, Normal External Ear Exam - Neck Exam Neck Exam: Full ROM. absent: Meningismus - Respiratory Exam Respiratory Exam: Decreased Breath Sounds, Rales, Rhonchi, + wheezing Additional comments: On High Flow Oxygen - Cardiovascular Exam Cardiovascular Exam: IRREGULAR RHYTHM, +S1, +S2 - GI/Abdominal Exam GI & Abdominal Exam: Soft, Normal Bowel Sounds. absent: Tenderness - Extremities Exam Additional comments: erythematous bilat foot, toes cold - Back Exam Back Exam: Full ROM. 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 Prior to TCU, she was admitted to the ICU for Acute on Chronic Resp Failure, COPD exacerbation and Pneumonia. Patient is well known to our service from prior admissions. She is a chronic CO2 retainer with PCO2 baseline 80. Readmitted to the ICU, due to CO2 narcosis and was placed on Bipap in the ER with improvement of mental status, started on Duonebs, Solumedrol. Patient has very poor prognosis due to her respiratory status. She has episodes of lethargy due to CO2 narcosis but has been able to respond to BIPAP and high flow O2 ventilation so far ,avoiding intubation . At present awake , alert oriented on High Flow O2 40 LPM FIO2 60 % 1. Acute on Chronic Respiratory Failure with Hypoxia and Hypercapnea likely sec to COPD Exacerbation Her mental status improved , more awake and alert at present, tolerating BIPAP and High Flow Oxygen Pulmonary , Dr. Yusuf following Will continue BIPAP RR 24 20/6/50 % alternating with high Flow O2 40 LPM FIO2 60 % Continue Solumedrol , Duonebs, Acetazolamide Tapered Solumedrol 60 mg IV Q12 Patient has very poor prognosis - she is Full Code however dr Yusuf will speak with pt and regarding Code Status 2. Metastatic squamous cell carcinoma of the lung Patient has been following up in [facility] Recent PET scan showed metastatic disease 3. Altered mental status secondary to CO2 narcosis more awake today Will continue BIPAP RR 24 20/6/50 % alternating with high Flow O2 40 LPM FIO2 60 % 4. Bilateral pneumonia ID consulted - Dr Larsen on Meropenem, Diflucan and Vanco Sputum c/s: no organism 5. Multifocal Atrial Tachycardia/ Paroxysmal A Fib with RVR uncontrolled with HR elevated to 150s today Cardizem drip started ASA 81 mg PO daily Continue Metoprolol 100 mg PO daily follows with Dr. Cole, cardiology as an outpatient . currently not on anticoagulation Replace K d/c Plaquenil 6. Chronic CHF (congestive heart failure), Diastolic Dysfunction/Pulm HTN Continue Metoprolol and Lasix 7. HTN (hypertension) BP stable on Metoprolol 8. Hyperlipidemia Atorvastatin 10 mg PO QHS 9. GERD (gastroesophageal reflux disease) Protonix 40 mg 10. Rheumatoid arthritis/Peripheral Neuropathy of Bilateral Feet History Interstitial Lung Disease Methotrexate 15 mg PO every Saturday- will hold for now as discussed with Dr Covarrubias Folic Acid d/c Plaquenil due to cardiac arrythmias d/c Gabapentin due to lethargy 11. Peripheral Vascular Disease/Chronic Venous Insufficiency With chronic LE edema and venous stasis erythematous toes bilaterally and cool to touch Lac-hydrin lotion to dry skin LE Continue ASA 12. UTI Urine culture positive for Enteroccocus faecalis (09/24/16) repeat urine cx growing yeast Started on Diflucan continue Meropenem and Vanco 13. DVT prophylaxis Lovenox 40mg SC daily
[2016-10-10] MEDS: Enoxaparin 40 mg Syringe SC SCH (16:55)
[2016-10-11 05:14] LABS: BASO % 0.1 % (0.0-2.0); HEMATOCRIT 30.8 % (34.0-47.0); LYMPH # 0.1 K/uL (1.0-4.3); LYMPH % 1.6 % (20.0-40.0); MEAN CORPUSCULAR HEMOGLOBIN 33.3 pg (27.0-31.0); MEAN CORPUSCULAR HGB CONC 30.6 g/dL (33.0-37.0); MEAN PLATELET VOLUME 10.5 fl (7.2-11.7); MONO # 0.2 K/uL (0.0-0.8); MONO % 2.5 % (0.0-10.0); NEUT # 8.5 K/uL (1.8-7.0); NEUT % 95.8 % (50.0-75.0); NRBC % 0.3 % (0.0-0.0); PLATELET COUNT 84 K/uL (130-400); RED CELL DISTRIBUTION WIDTH 16.1 % (11.5-14.5); WHITE BLOOD COUNT 8.9 K/uL (4.8-10.8)
[2016-10-11 05:30] LABS: ALB/GLOB RATIO 1.2 (1.0-2.1); ALKALINE PHOSPHATASE 68 U/L (38-126); ALT/SGPT 75 U/L (9-52); AST/SGOT 42 U/L (14-36); BILIRUBIN,TOTAL 0.8 mg/dl (0.2-1.3); BLOOD UREA NITROGEN 32 mg/dl (7-17); CHLORIDE 97 mmol/L (98-107); GFR AFRICAN-AMERICAN > 60; GLUCOSE,RANDOM 194 mg/dL (65-105); POTASSIUM 3.9 MMOL/L (3.6-5.0); SODIUM 143 mmol/l (132-148); TOTAL PROTEIN 5.1 G/DL (6.3-8.2)
[2016-10-11 05:38] LABS: CARBON DIOXIDE 46 mmol/L (22-30)
[2016-10-11 06:51] LABS: NEUTROPHIL 96 % (42-75); REACTIVE LYMPHOCYTES 1 % (0-0); TOTAL CELLS COUNTED 100
[2016-10-11 06:52] LABS: STOMATOCYTES SLIGHT
[2016-10-11] MEDS: Albuterol-Ipratrop 3 mg / 0.5 (3 ml) UD INH SCH ×4 (07:55→19:21)
[2016-10-11] MEDS: Fluconazole IV 100mg/50 ml NS 50 ML IVPB SCH (08:41)
[2016-10-11] MEDS: acetaZOLAMIDE 500 mg SR Cap PO SCH (08:41)
[2016-10-11] MEDS: Enoxaparin 40 mg Syringe SC SCH (08:42)
[2016-10-11] MEDS: Meropenem 1 GM in Sodium Chloride 0.9% 100 ML IVPB SCH ×2 (08:43→20:13)
[2016-10-11] MEDS: methylPREDNISolone 60 MG in Sodium Chloride 0.9% 50 ML IVPB SCH ×2 (08:44→20:16)
[2016-10-11] MEDS: Metoprolol Succinate 100 mg XL Tab PO SCH (08:45)
--- NOTE | 2016-10-11 09:18 | CP.PCM.PN ---
Subjective - Date & Time of Evaluation Date of Evaluation: 10/11/16 Time of Evaluation: 09:18 - Subjective Subjective: Remains better than previous. Using NPPV mask ventilation overnight and on and off during the day. Level of consciousness remains improved, communicating using pen and paper. Oxygenation is fair. Heart rate remains high. Discussed with air tool operator and epic willow specialist. Still having dark blood mixed with sputum. Remains afebrile, no leukocytosis. Dependant edema ++, no cyanosis. Breath sounds are diminished with bilateral rhonchi and few scattered expiratory wheezes. Labs are slowly improving, CO2 down to 46. No leukocytosis, but Hgb and platelets are dropping. Discussed Home Hospice with her . Referral to [facility] for further input. Procalcitonin level requested. Objective - Vital Signs/Intake and Output Vital Signs (last 24 hours): Temp Pulse Resp BP Pulse Ox 98.6 F 110 H 23 120/62 92 L 10/11/16 08:00 10/11/16 08:45 10/11/16 08:10 10/11/16 08:45 10/11/16 08:00 Intake and Output: 10/10/16 10/11/16 23:59 11:59 Intake Total 308 525 Output Total 200 350 Balance 108 175 - Medications Medications: Current Medications Acetaminophen (Tylenol 325mg Tab) 650 mg PO Q6 PRN PRN Reason: Fever >100.4 F Acetazolamide (Diamox Sequels 500 Mg Sr Cap) 500 mg PO Q12 [facility] Last Admin: 10/11/16 08:41 Dose: 500 mg Albuterol/Ipratropium (Duoneb 3 Mg/0.5 Mg (3 Ml) Ud) 3 ml INH RQID [facility] Last Admin: 10/11/16 07:55 Dose: 3 ml Aspirin (Aspirin Chewable) 81 mg PO DAILY [facility] Last Admin: 10/11/16 08:41 Dose: 81 mg Cholecalciferol (Vitamin D) 2,000 iu PO DAILY [facility] Last Admin: 10/11/16 08:46 Dose: 2,000 iu Enoxaparin Sodium (Lovenox) 40 mg SC DAILY [facility] PRN Reason: Protocol Last Admin: 10/11/16 08:42 Dose: 40 mg Famotidine (Pepcid) 40 mg PO HS [facility] Last Admin: 10/10/16 21:01 Dose: 40 mg Folic Acid (Folic Acid) 2 mg PO DAILY [facility] Last Admin: 10/11/16 08:42 Dose: 2 mg Hydroxychloroquine Sulfate (Plaquenil) 400 mg PO DAILY [facility] Last Admin: 10/08/16 08:45 Dose: 400 mg Vancomycin HCl 1 gm/ Sodium (Chloride) 250 mls @ 166.667 mls/hr IVPB Q12@0400, 1600 [facility] Last Admin: 10/11/16 03:49 Dose: 166.667 mls/hr Meropenem 1 gm/ Sodium (Chloride) 100 mls @ 100 mls/hr IVPB Q12 [facility] Last Admin: 10/11/16 08:43 Dose: 100 mls/hr Fluconazole (Diflucan Iv 100 Mg/50 Ml Ns) 50 mls @ 50 mls/hr IVPB DAILY [facility] Last Admin: 10/11/16 08:41 Dose: 50 mls/hr Methylprednisolone 60 mg/ (Sodium Chloride) 50 mls @ 100 mls/hr IVPB Q12 [facility] Last Admin: 10/11/16 08:44 Dose: 100 mls/hr Diltiazem HCl 125 mg/ Sodium (Chloride) 125 mls @ 5 mls/hr IV .Q24H ONE; 5 MG/ HR PRN Reason: Protocol Stop: 10/11/16 11:09 Last Titration: 10/11/16 07:40 Dose: 7.5 mg/hr, 7.5 mls/hr Metoprolol Succinate (Toprol Xl) 100 mg PO DAILY [facility] Last Admin: 10/11/16 08:45 Dose: 100 mg Modafinil (Provigil) 200 mg PO DAILY [facility] Last Admin: 10/11/16 08:44 Dose: 200 mg Ondansetron HCl (Zofran Inj) 4 mg IVP Q6 PRN PRN Reason: Nausea/Vomiting - Labs Labs: 10/11/16 04:25 10/11/16 04:25 Assessment and Plan (1) Pulmonary infiltrates on CXR Status: Acute (2) Acute on chronic respiratory failure with hypoxia and hypercapnia Status: Acute (3) Atrial fibrillation Status: Chronic (4) 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
--- NOTE | 2016-10-11 09:30 | CP.CCUPN ---
CCU Subjective - Physician Review Subjective (Free Text): Awake and alert, on BiPAP overnight and just switched over to HFNC, at the bedside, no distress, SPo2 98%, remains on Cardizem drip, increased now to 10mg / hr, for HR in 130s now down to 110s. SBP 101-110 systolic. Denies any chest discomfort, palpitations, dizziness, SOB, n/v, nor other weakness. ROS: No other pertinent negs or positives on 10+ system review. Other PMSFH: All recent nursing and physician documentation reviewed and no new information noted relevant to current problems. MAJOR IMPRESSIONS / PLAN: 1. Chronic Resp failure 2 Hypercapnia 2. Metabolic Encephalopathy 2 #1 3. Bacterial pneumonia / Tracheobronchitis 4. Rapid A Fib PLAN: 1. Night time BiPAP support, similar to her home regimen. 2. Would increase Diamox back to TID dosing. 3. Steroids weaned as per Puljaylene. 4. Check Procalcitonin level, if low or normal, discuss with ID to stop Arie ( ? Effect on platelets). 5. Living will directives reviewed with Pulm and , discussions ensued over possibility of home hospice. 6. Cary placed 10/10/16 for onset of skin redness under groin and buttock areas. 7. Cardiology eval for A Fib rate control, discuss feasibility of Digoxin with Cardio. CCU Objective - Vital Signs / Intake & Output Vital Signs (Last 4 hours): Vital Signs Temp Pulse Resp BP Pulse Ox 10/11/16 08:45 110 H 120/62 10/11/16 08:10 23 10/11/16 08:00 98.6 F 117 H 20 120/62 92 L 10/11/16 07:46 98.6 F 130 H 23 101/62 95 10/11/16 07:00 115 H 24 101/62 96 10/11/16 06:07 110 H 10/11/16 06:00 104 H 26 H 104/64 97 Intake and Output (Last 8hrs): Intake & Output 10/10/16 10/11/16 10/11/16 22:59 06:59 14:59 Intake Total 178 450 75 Output Total 200 350 Balance -22 100 75 Intake: IV 20 0 75 Intake, Piggyback 158 270 Oral 180 Output: Urine 200 350 Urethral (Cary) 200 350 - Physical Exam Head: Positive for: Normocephalic Pupils: Positive for: PERRL Extroacular Muscles: Positive for: EOMI Conjunctiva: Positive for: Normal. Negative for: Icteric Mouth: Positive for: Moist Mucous Membranes. Negative for: Drooling Pharnyx: Positive for: Normal. Negative for: ERYTHEMA, EXUDATE Neck: Positive for: Normal Range of Motion. Negative for: JVD Respiratory/Chest: Positive for: Decreased Breath Sounds. Negative for: Accessory Muscle Use, Wheezes Cardiovascular: Positive for: Regular Rate and Rhythm, Normal S1, S2. Negative for: Murmurs, Rub Abdomen: Positive for: Normal Bowel Sounds. Negative for: Tenderness, Distention Upper Extremity: Positive for: Other (RUE PICC) Lower Extremity: Negative for: Edema, CALF TENDERNESS, Cyanosis Neurological: Positive for: GCS=15, CN II-XII Intact, Motor Func Grossly Intact. Negative for: Speech Normal Skin: Positive for: Warm, Other (scattered areas of ecchymoses over both upper arms). Negative for: Rashes - Medications Active Medications: Active Medications Generic Name Dose Route Start Last Admin Trade Name Freq PRN Reason Stop Dose Admin Acetaminophen 650 mg 10/05/16 16:41 Tylenol 325mg Tab PO Q6 PRN Fever >100.4 F Acetazolamide 500 mg 10/09/16 21:00 10/11/16 08:41 Diamox Sequels 500 Mg Sr Cap PO 500 mg Q12 BROWN Administration Albuterol/Ipratropium 3 ml 10/05/16 20:00 10/11/16 07:55 Duoneb 3 Mg/0.5 Mg (3 Ml) Ud INH 3 ml RQID BROWN Administration Aspirin 81 mg 10/06/16 09:00 10/11/16 08:41 Aspirin Chewable PO 81 mg DAILY BROWN Administration Cholecalciferol 2,000 iu 10/06/16 09:00 10/11/16 08:46 Vitamin D PO 2,000 iu DAILY BROWN Administration Enoxaparin Sodium 40 mg 10/10/16 11:00 10/11/16 08:42 Lovenox SC 40 mg DAILY BR[facility] Administration Protocol Famotidine 40 mg 10/05/16 22:00 10/10/16 21:01 Pepcid PO 40 mg HS BROWN Administration Folic Acid 2 mg 10/06/16 09:00 10/11/16 08:42 Folic Acid PO 2 mg DAILY [facility] Administration Hydroxychloroquine Sulfate 400 mg 10/06/16 09:00 10/08/16 08:45 Plaquenil PO 400 mg DAILY [facility] Administration Vancomycin HCl 1 gm/ Sodium 250 mls @ 166.667 mls/hr 10/07/16 04:00 10/11/16 03:49 Chloride IVPB 166.667 mls/hr Q12@0400,1600 BR[facility] Administration Meropenem 1 gm/ Sodium 100 mls @ 100 mls/hr 10/07/16 21:00 10/11/16 08:43 Chloride IVPB 100 mls/hr Q12 BROWN Administration Fluconazole 50 mls @ 50 mls/hr 10/08/16 09:00 10/11/16 08:41 Diflucan Iv 100 Mg/50 Ml Ns IVPB 50 mls/hr DAILY [facility] Administration Methylprednisolone 60 mg/ 50 mls @ 100 mls/hr 10/08/16 21:00 10/11/16 08:44 Sodium Chloride IVPB 100 mls/hr Q12 BROWN Administration Diltiazem HCl 125 mg/ Sodium 125 mls @ 5 mls/hr 10/10/16 11:10 10/11/16 07:40 Chloride IV 10/11/16 11:09 7.5 mg/hr .Q24H ONE 7.5 mls/hr Protocol Titration 5 MG/HR Metoprolol Succinate 100 mg 10/06/16 09:00 10/11/16 08:45 Toprol Xl PO 100 mg DAILY BROWN Administration Modafinil 200 mg 10/06/16 09:00 10/11/16 08:44 Provigil PO 200 mg DAILY [facility] Administration Ondansetron HCl 4 mg 10/05/16 16:40 Zofran Inj IVP Q6 PRN Nausea/Vomiting - Patient Studies Lab Studies: Lab Studies 10/11/16 10/11/16 Range/Units 04:25 04:25 WBC 8.9 (4.8-10.8) K/uL RBC 2.83 L (3.80-5.20) Mil/uL Hgb 9.4 L (12.0-16.0) g/dL Hct 30.8 L (34.0-47.0) % MCV 109.0 H (81.0-99.0) fl MCH 33.3 H (27.0-31.0) pg MCHC 30.6 L (33.0-37.0) g/dL RDW 16.1 H (11.5-14.5) % Plt Count 84 L (130-400) K/uL MPV 10.5 (7.2-11.7) fl Neut % (Auto) 95.8 H (50.0-75.0) % Lymph % (Auto) 1.6 L (20.0-40.0) % [place] % (Auto) 2.5 (0.0-10.0) % Eos % (Auto) 0.0 (0.0-4.0) % Baso % (Auto) 0.1 (0.0-2.0) % Neut # 8.5 H (1.8-7.0) K/uL Lymph # 0.1 L (1.0-4.3) K/uL [place] # 0.2 (0.0-0.8) K/uL Eos # 0.0 (0.0-0.7) K/uL Baso # 0.0 (0.0-0.2) K/uL Neutrophils % (Manual) 96 H (42-75) % Lymphocytes % (Manual) 3 L (20-50) % Reactive Lymphs % 1 H (0-0) % Monocytes % (Manual) 0 (0-10) % Platelet Estimate Markedly decreased L (NORMAL) Hypochromasia (manual) Slight Anisocytosis (manual) Slight Stomatocytes Slight Sodium 143 (132-148) mmol/l Potassium 3.9 (3.6-5.0) MMOL/L Chloride 97 L (98-107) mmol/L Carbon Dioxide 46 H* (22-30) mmol/L Anion Gap 4 L (10-20) BUN 32 H (7-17) mg/dl Creatinine 0.8 (0.7-1.2) mg/dL Est GFR ( Amer) > 60 Est GFR (Non-Af Amer) > 60 Random Glucose 194 H (65-105) mg/dL Calcium 9.0 (8.4-10.2) mg/dL Total Bilirubin 0.8 (0.2-1.3) mg/dl AST 42 H (14-36) U/L ALT 75 H (9-52) U/L Alkaline Phosphatase 68 (38-126) U/L Total Protein 5.1 L (6.3-8.2) G/DL Albumin 2.8 L (3.5-5.0) g/dL Globulin 2.3 (2.2-3.9) gm/dL Albumin/Globulin Ratio 1.2 (1.0-2.1) Laboratory Results - last 24 hr 10/11/16 10/11/16 04:25 04:25 WBC 8.9 RBC 2.83 L Hgb 9.4 L Hct 30.8 L MCV 109.0 H MCH 33.3 H MCHC 30.6 L RDW 16.1 H Plt Count 84 L MPV 10.5 Neut % (Auto) 95.8 H Lymph % (Auto) 1.6 L [place] % (Auto) 2.5 Eos % (Auto) 0.0 Baso % (Auto) 0.1 Neut # 8.5 H Lymph # 0.1 L [place] # 0.2 Eos # 0.0 Baso # 0.0 Neutrophils % (Manual) 96 H Lymphocytes % (Manual) 3 L Reactive Lymphs % 1 H Monocytes % (Manual) 0 Platelet Estimate Markedly decreased L Hypochromasia (manual) Slight Anisocytosis (manual) Slight Stomatocytes Slight Sodium 143 Potassium 3.9 Chloride 97 L Carbon Dioxide 46 H* Anion Gap 4 L BUN 32 H Creatinine 0.8 Est GFR ( Amer) > 60 Est GFR (Non-Af Amer) > 60 Random Glucose 194 H Calcium 9.0 Total Bilirubin 0.8 AST 42 H ALT 75 H Alkaline Phosphatase 68 Total Protein 5.1 L Albumin 2.8 L Globulin 2.3 Albumin/Globulin Ratio 1.2 Fingerstick Blood Sugar Results: 264 Review of Systems - Review of Systems Review of Systems: As Above Critical Care Progress Note - Nutrition Nutrition: Nutrition Category Date Time Status Regular Diet [DIET] Diets 10/05/16 Dinner Active
[2016-10-11] MEDS ORDERED: Digoxin 500 mcg/2ml (0.5 mg/2ml) Inj IVP ONE (09:32)
--- NOTE | 2016-10-11 11:10 | CP.PCM.CON ---
History of Present Illness - History of Present Illness History of Present Illness: this 66-year-old female is well-known to me over the last 10-15 years. She is a hypertensive with severe COPD and chronic exogenous obesity with severe rheumatoid arthritis. She has had severe hypoxic spells with CO2 narcosis on multiple occasions which has required hospitalization. She has now developed lung malignancy as well. The patient is now hospitalized with severe ventilatory insufficiency and markedly elevated PCO2 levels. Her mental status fluctuates depending on her CO2 levels. She has been kept on BiPAP machines for prolonged periods of time so as to manage her hypercapnea. This consolidation was requested with onset of atrial fibrillation for which she has been on intravenous Cardizem with minimal improvement in her heart rate. The patient has had multifocal atrial tachycardia in the past. On physical examination the patient appears alert and awake. Unable to speak because of involvement of recurrent laryngeal nerve.afebrile with a pulse rate of 120 bpm and irregularly irregular. Her blood pressure was 112/74 mmHg. her pulse oximetry showed a level of 87% while on oxygen simply bent with nasal cannula. Her jugular venous pressure could not be evaluated because of a short thick neck. There was no pedal edema. Pedal pulses were extremely feeble. There was no central or peripheral cyanosis. Chest was emphysematous and apex was not palpable. First and second heart sounds were distant.abdomen was soft liver and spleen are not palpable. Her electrocardiogram taken yesterday showed atrial flutter fibrillation with rapid heart rate. No Q waves were detected on the electric cardiogram. Her lab data was noted. Impression: atrial fibrillation in a patient with severe COPD and hypoventilation with recurrent CO2 toxicity. Lung malignancy. Rheumatoid arthritis. Chronic exogenous obesity with a history of hypertension. 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 I have recommended initiation of digitalis to control her heart rate. I will obtain another electrocardiogram. Her long-term prognosis appears poor. Past Patient History - Infectious Disease Hx of Infectious Diseases: None - Tetanus Immunizations Tetanus Immunization: Unknown - Past Medical History & Family History Past Medical History?: Yes - Past Social History Smoking Status: Former Smoker - CARDIAC Hx Cardiac Disorders: Yes - PULMONARY Hx Respiratory Disorders: Yes - NEUROLOGICAL Hx Neurological Disorder: No - HEENT Hx HEENT Problems: No - RENAL Hx Chronic Kidney Disease: No - ENDOCRINE/METABOLIC Hx Endocrine Disorders: Yes - HEMATOLOGICAL/ONCOLOGICAL Hx Blood Disorders: Yes - INTEGUMENTARY Hx Dermatological Problems: Yes - MUSCULOSKELETAL/RHEUMATOLOGICAL Hx Musculoskeletal Disorders: Yes Hx Falls: No - GASTROINTESTINAL Hx Gastrointestinal Disorders: Yes Hx Gastroesophageal Reflux: Yes - GENITOURINARY/GYNECOLOGICAL Hx Genitourinary Disorders: No - PSYCHIATRIC Hx Psychophysiologic Disorder: No Hx Substance Use: No - SURGICAL HISTORY Hx Cholecystectomy: Yes - ANESTHESIA Hx Anesthesia: Yes Hx Anesthesia Reactions: No Hx Malignant Hyperthermia: No Meds Allergies/Adverse Reactions: Allergies Allergy/AdvReac Type Severity Reaction Status Date / Time shellfish derived Allergy RASH Verified 09/24/16 08:13 strawberry Allergy RASH Verified 09/24/16 08:13 - Medications Medications: Current Medications Acetaminophen (Tylenol 325mg Tab) 650 mg PO Q6 PRN PRN Reason: Fever >100.4 F Acetazolamide (Diamox 250 Mg Tab) 500 mg PO TID [facility] Albuterol/Ipratropium (Duoneb 3 Mg/0.5 Mg (3 Ml) Ud) 3 ml INH RQID [facility] Last Admin: 10/11/16 07:55 Dose: 3 ml Aspirin (Aspirin Chewable) 81 mg PO DAILY [facility] Last Admin: 10/11/16 08:41 Dose: 81 mg Cholecalciferol (Vitamin D) 2,000 iu PO DAILY [facility] Last Admin: 10/11/16 08:46 Dose: 2,000 iu Enoxaparin Sodium (Lovenox) 40 mg SC DAILY [facility] PRN Reason: Protocol Last Admin: 10/11/16 08:42 Dose: 40 mg Famotidine (Pepcid) 40 mg PO HS [facility] Last Admin: 10/10/16 21:01 Dose: 40 mg Folic Acid (Folic Acid) 2 mg PO DAILY [facility] Last Admin: 10/11/16 08:42 Dose: 2 mg Hydroxychloroquine Sulfate (Plaquenil) 400 mg PO DAILY [facility] Last Admin: 10/08/16 08:45 Dose: 400 mg Vancomycin HCl 1 gm/ Sodium (Chloride) 250 mls @ 166.667 mls/hr IVPB Q12@0400, 1600 [facility] Last Admin: 10/11/16 03:49 Dose: 166.667 mls/hr Meropenem 1 gm/ Sodium (Chloride) 100 mls @ 100 mls/hr IVPB Q12 [facility] Last Admin: 10/11/16 08:43 Dose: 100 mls/hr Fluconazole (Diflucan Iv 100 Mg/50 Ml Ns) 50 mls @ 50 mls/hr IVPB DAILY [facility] Last Admin: 10/11/16 08:41 Dose: 50 mls/hr Methylprednisolone 60 mg/ (Sodium Chloride) 50 mls @ 100 mls/hr IVPB Q12 [facility] Last Admin: 10/11/16 08:44 Dose: 100 mls/hr Diltiazem HCl 125 mg/ Sodium (Chloride) 125 mls @ 5 mls/hr IV .Q24H ONE; 5 MG/ HR PRN Reason: Protocol Stop: 10/11/16 11:09 Last Titration: 10/11/16 09:07 Dose: 10 mg/hr, 10 mls/hr Metoprolol Succinate (Toprol Xl) 100 mg PO DAILY [facility] Last Admin: 10/11/16 08:45 Dose: 100 mg Modafinil (Provigil) 200 mg PO DAILY [facility] Last Admin: 10/11/16 08:44 Dose: 200 mg Ondansetron HCl (Zofran Inj) 4 mg IVP Q6 PRN PRN Reason: Nausea/Vomiting Results - Vital Signs Recent Vital Signs: Last Vital Signs Temp 98.6 F 10/11/16 08:00 Pulse 115 H 10/11/16 10:00 Resp 28 H 10/11/16 10:00 BP 121/52 L 10/11/16 10:00 Pulse Ox 86 L 10/11/16 10:00 - Labs Result Diagrams: 10/11/16 04:25 10/11/16 04:25 Labs: Laboratory Results - last 24 hr 10/11/16 10/11/16 04:25 04:25 WBC 8.9 RBC 2.83 L Hgb 9.4 L Hct 30.8 L MCV 109.0 H MCH 33.3 H MCHC 30.6 L RDW 16.1 H Plt Count 84 L MPV 10.5 Neut % (Auto) 95.8 H Lymph % (Auto) 1.6 L [place] % (Auto) 2.5 Eos % (Auto) 0.0 Baso % (Auto) 0.1 Neut # 8.5 H Lymph # 0.1 L [place] # 0.2 Eos # 0.0 Baso # 0.0 Neutrophils % (Manual) 96 H Lymphocytes % (Manual) 3 L Reactive Lymphs % 1 H Monocytes % (Manual) 0 Platelet Estimate Markedly decreased L Hypochromasia (manual) Slight Anisocytosis (manual) Slight Stomatocytes Slight Sodium 143 Potassium 3.9 Chloride 97 L Carbon Dioxide 46 H* Anion Gap 4 L BUN 32 H Creatinine 0.8 Est GFR ( Amer) > 60 Est GFR (Non-Af Amer) > 60 Random Glucose 194 H Calcium 9.0 Total Bilirubin 0.8 AST 42 H ALT 75 H Alkaline Phosphatase 68 Total Protein 5.1 L Albumin 2.8 L Globulin 2.3 Albumin/Globulin Ratio 1.2
--- NOTE | 2016-10-11 11:44 | CP.PCM.PN ---
Subjective - Date & Time of Evaluation Date of Evaluation: 10/11/16 Time of Evaluation: 11:00 - Subjective Subjective: Pt is on High Flow 40L/60% No fever Had hemoptysis this morning + cough no CP HR on monitor better ( 78-low 100s) no abd pain Pt wants to go home - does not want LTACH nor DAHIANA on discharge Will consult Hospice to speak with about Home Hospice Care Objective - Vital Signs/Intake and Output Vital Signs (last 24 hours): Temp Pulse Resp BP Pulse Ox 98.6 F 91 H 25 H 121/57 L 93 L 10/11/16 08:00 10/11/16 11:00 10/11/16 11:41 10/11/16 11:00 10/11/16 11:00 Intake and Output: 10/11/16 10/11/16 06:59 18:59 Intake Total 608 406.5 Output Total 350 Balance 258 406.5 - Medications Medications: Current Medications Acetaminophen (Tylenol 325mg Tab) 650 mg PO Q6 PRN PRN Reason: Fever >100.4 F Acetazolamide (Diamox 250 Mg Tab) 500 mg PO TID [facility] Albuterol/Ipratropium (Duoneb 3 Mg/0.5 Mg (3 Ml) Ud) 3 ml INH RQID [facility] Last Admin: 10/11/16 11:40 Dose: 3 ml Aspirin (Aspirin Chewable) 81 mg PO DAILY [facility] Last Admin: 10/11/16 08:41 Dose: 81 mg Cholecalciferol (Vitamin D) 2,000 iu PO DAILY [facility] Last Admin: 10/11/16 08:46 Dose: 2,000 iu Enoxaparin Sodium (Lovenox) 40 mg SC DAILY [facility] PRN Reason: Protocol Last Admin: 10/11/16 08:42 Dose: 40 mg Famotidine (Pepcid) 40 mg PO HS [facility] Last Admin: 10/10/16 21:01 Dose: 40 mg Folic Acid (Folic Acid) 2 mg PO DAILY [facility] Last Admin: 10/11/16 08:42 Dose: 2 mg Hydroxychloroquine Sulfate (Plaquenil) 400 mg PO DAILY [facility] Last Admin: 10/08/16 08:45 Dose: 400 mg Vancomycin HCl 1 gm/ Sodium (Chloride) 250 mls @ 166.667 mls/hr IVPB Q12@0400, 1600 [facility] Last Admin: 10/11/16 03:49 Dose: 166.667 mls/hr Meropenem 1 gm/ Sodium (Chloride) 100 mls @ 100 mls/hr IVPB Q12 [facility] Last Admin: 10/11/16 08:43 Dose: 100 mls/hr Fluconazole (Diflucan Iv 100 Mg/50 Ml Ns) 50 mls @ 50 mls/hr IVPB DAILY [facility] Last Admin: 10/11/16 08:41 Dose: 50 mls/hr Methylprednisolone 60 mg/ (Sodium Chloride) 50 mls @ 100 mls/hr IVPB Q12 [facility] Last Admin: 10/11/16 08:44 Dose: 100 mls/hr Metoprolol Succinate (Toprol Xl) 100 mg PO DAILY [facility] Last Admin: 10/11/16 08:45 Dose: 100 mg Modafinil (Provigil) 200 mg PO DAILY [facility] Last Admin: 10/11/16 08:44 Dose: 200 mg Ondansetron HCl (Zofran Inj) 4 mg IVP Q6 PRN PRN Reason: Nausea/Vomiting - Labs Labs: 10/11/16 04:25 10/11/16 04:25 - Constitutional Appears: Older Than Stated Age, Chronically Ill - Head Exam Head Exam: NORMAL INSPECTION, NORMOCEPHALIC - Eye Exam Eye Exam: EOMI, Normal appearance, PERRL - ENT Exam ENT Exam: Mucous Membranes Dry, Normal External Ear Exam - Neck Exam Neck Exam: Full ROM. absent: Meningismus - Respiratory Exam Respiratory Exam: Decreased Breath Sounds, Rales, Rhonchi, + wheezing Additional comments: On High Flow Oxygen - Cardiovascular Exam Cardiovascular Exam: IRREGULAR RHYTHM, +S1, +S2 - GI/Abdominal Exam GI & Abdominal Exam: Soft, Normal Bowel Sounds. absent: Tenderness - Extremities Exam Additional comments: erythematous bilat foot, toes cold - Back Exam Back Exam: Full ROM. 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 Prior to TCU, she was admitted to the ICU for Acute on Chronic Resp Failure, COPD exacerbation and Pneumonia. Patient is well known to our service from prior admissions. She is a chronic CO2 retainer with PCO2 baseline 80. Readmitted to the ICU, due to CO2 narcosis and was placed on Bipap in the ER with improvement of mental status, started on Duonebs, Solumedrol. Patient has very poor prognosis due to her respiratory status. She has episodes of lethargy due to CO2 narcosis but has been able to respond to BIPAP and high flow O2 ventilation so far ,avoiding intubation . At present awake , alert oriented on High Flow O2 40 LPM FIO2 60 % 1. Acute on Chronic Respiratory Failure with Hypoxia and Hypercapnea likely sec to COPD Exacerbation Her mental status improved , more awake and alert at present, tolerating BIPAP and High Flow Oxygen Pulmonary , Dr. Yusuf following Will continue BIPAP RR 24 20/6/50 % alternating with high Flow O2 40 LPM FIO2 60 % Continue Solumedrol , Duonebs, Acetazolamide Tapered Solumedrol 60 mg IV Q12 Patient has very poor prognosis - she is Full Code however dr Yusuf will speak with pt and regarding Code Status 2. Metastatic squamous cell carcinoma of the lung Patient has been following up in [facility] Recent PET scan showed metastatic disease 3. Altered mental status secondary to CO2 narcosis more awake today Will continue BIPAP RR 24 20/6/50 % alternating with high Flow O2 40 LPM FIO2 60 % 4. Bilateral pneumonia ID consulted - Dr Larsen on Meropenem, Diflucan and Vanco Sputum c/s: no organism 5. Paroxysmal A Fib with RVR and MATs uncontrolled with HR elevated to 150s Cardizem drip was started Dr peralta consulted - rec starting Digoxin ASA 81 mg PO daily Continue Metoprolol 100 mg PO daily currently not on anticoagulation Replace K d/ Plaquenil 6. Chronic CHF (congestive heart failure), Diastolic Dysfunction/Pulm HTN Continue Metoprolol and Lasix 7. HTN (hypertension) BP stable on Metoprolol 8. Hyperlipidemia Atorvastatin 10 mg PO QHS 9. GERD (gastroesophageal reflux disease) Protonix 40 mg 10. Rheumatoid arthritis/Peripheral Neuropathy of Bilateral Feet History Interstitial Lung Disease Methotrexate 15 mg PO every Saturday- will hold for now as discussed with Dr Covarrubias Folic Acid d/c Plaquenil due to cardiac arrythmias d/c Gabapentin due to lethargy 11. Peripheral Vascular Disease/Chronic Venous Insufficiency With chronic LE edema and venous stasis erythematous toes bilaterally and cool to touch Lac-hydrin lotion to dry skin LE Continue ASA 12. UTI Urine culture positive for Enteroccocus faecalis (09/24/16) repeat urine cx growing yeast Started on Diflucan continue Meropenem and Vanco 13. Thrombocytopenia - prob sec to Infection, meds - hold Lovenox for now as pLatelet is 84 - will monitor closely 13. DVT prophylaxis Lovenox 40mg SC daily- will hold for now as Platelet went down to 84 and pt has a lot of bruises
[2016-10-12 05:24] LABS: HEMATOCRIT 31.3 % (34.0-47.0); MEAN CELL VOLUME 109.1 fl (81.0-99.0); MEAN CORPUSCULAR HGB CONC 30.3 g/dL (33.0-37.0); RED CELL DISTRIBUTION WIDTH 16.5 % (11.5-14.5); WHITE BLOOD COUNT 8.5 K/uL (4.8-10.8)
[2016-10-12 05:35] LABS: BLOOD UREA NITROGEN 30 mg/dl (7-17); CALCIUM 9.2 mg/dL (8.4-10.2); CHLORIDE 99 mmol/L (98-107); GFR AFRICAN-AMERICAN > 60; GLUCOSE,RANDOM 164 mg/dL (65-105); POTASSIUM 4.2 MMOL/L (3.6-5.0); SODIUM 144 mmol/l (132-148)
[2016-10-12 05:59] LABS: CARBON DIOXIDE 44 mmol/L (22-30)
[2016-10-12] MEDS: Albuterol-Ipratrop 3 mg / 0.5 (3 ml) UD INH SCH ×4 (07:17→19:31)
--- NOTE | 2016-10-12 07:33 | CARD ---
APPROVED REPORT EKG Measurement Heart [id number] <Conclusion> A Fib ST & T wave abnormality, consider anterolateral ischemia Abnormal ECG
[2016-10-12] MEDS: methylPREDNISolone 60 MG in Sodium Chloride 0.9% 50 ML IVPB SCH ×2 (08:25→21:00)
[2016-10-12] MEDS: Meropenem 1 GM in Sodium Chloride 0.9% 100 ML IVPB SCH (08:26)
[2016-10-12] MEDS: Fluconazole IV 100mg/50 ml NS 50 ML IVPB SCH (08:26)
[2016-10-12] MEDS ORDERED: Digoxin 500 mcg/2ml (0.5 mg/2ml) Inj ONE (09:02)
[2016-10-12] MEDS ORDERED: Digoxin 500 mcg/2ml (0.5 mg/2ml) Inj IVP ONE (09:45)
--- NOTE | 2016-10-12 09:47 | CP.PCM.PN ---
Subjective - Date & Time of Evaluation Date of Evaluation: 10/12/16 Time of Evaluation: 09:20 - Subjective Subjective: Fairly alert, awke and lucid on BiPAP machine Quite unable to speak, communicates by writing on paper Afebrile A Fib at 120 BPM ( Following Bronchodilators an hr back) Responded well to Dig IV yesterday with HR dropping to 80 BPM 2 hrs following 0.5 mg of Digoxin BP 124/74 mm Hg Pulse ox 92% on O2 supplement with BiPAP No gallop Bilat wheez+ Labs show GFR>60 ml /min K+ normal Will give Digoxin and reduce beta blockade Prognosis remains poor Objective - Vital Signs/Intake and Output Vital Signs (last 24 hours): Temp Pulse Resp BP Pulse Ox 98.5 F 95 H 46 H 111/68 98 10/12/16 07:26 10/12/16 09:22 10/12/16 07:26 10/12/16 07:26 10/12/16 07:26 Intake and Output: 10/12/16 10/12/16 06:59 18:59 Intake Total 646 Output Total 350 Balance 296 - Medications Medications: Current Medications Acetaminophen (Tylenol 325mg Tab) 650 mg PO Q6 PRN PRN Reason: Fever >100.4 F Acetazolamide (Diamox 250 Mg Tab) 500 mg PO TID [facility] Last Admin: 10/11/16 17:15 Dose: 500 mg Albuterol/Ipratropium (Duoneb 3 Mg/0.5 Mg (3 Ml) Ud) 3 ml INH RQID [facility] Last Admin: 10/12/16 07:17 Dose: 3 ml Aspirin (Aspirin Chewable) 81 mg PO DAILY [facility] Last Admin: 10/11/16 08:41 Dose: 81 mg Cholecalciferol (Vitamin D) 2,000 iu PO DAILY [facility] Last Admin: 10/11/16 08:46 Dose: 2,000 iu Digoxin (Lanoxin) 0.25 mg IVP ONCE ONE Stop: 10/12/16 09:46 Digoxin (Lanoxin) 0.125 mg IVP DAILY [facility] Famotidine (Pepcid) 40 mg PO HS [facility] Last Admin: 10/11/16 22:00 Dose: 40 mg Folic Acid (Folic Acid) 2 mg PO DAILY [facility] Last Admin: 10/11/16 08:42 Dose: 2 mg Hydroxychloroquine Sulfate (Plaquenil) 400 mg PO DAILY [facility] Last Admin: 10/08/16 08:45 Dose: 400 mg Vancomycin HCl 1 gm/ Sodium (Chloride) 250 mls @ 166.667 mls/hr IVPB Q12@0400, 1600 [facility] Last Admin: 10/12/16 03:45 Dose: 166.667 mls/hr Meropenem 1 gm/ Sodium (Chloride) 100 mls @ 100 mls/hr IVPB Q12 [facility] Last Admin: 10/12/16 08:26 Dose: 100 mls/hr Fluconazole (Diflucan Iv 100 Mg/50 Ml Ns) 50 mls @ 50 mls/hr IVPB DAILY [facility] Last Admin: 10/12/16 08:26 Dose: 50 mls/hr Methylprednisolone 60 mg/ (Sodium Chloride) 50 mls @ 100 mls/hr IVPB Q12 [facility] Stop: 10/12/16 23:59 Last Admin: 10/12/16 08:25 Dose: 100 mls/hr Methylprednisolone 40 mg/ (Sodium Chloride) 50.64 mls @ 100 mls/hr IVPB Q12 [facility] Metoprolol Succinate (Toprol Xl) 50 mg PO DAILY [facility] Modafinil (Provigil) 200 mg PO DAILY [facility] Last Admin: 10/11/16 08:44 Dose: 200 mg Ondansetron HCl (Zofran Inj) 4 mg IVP Q6 PRN PRN Reason: Nausea/Vomiting - Labs Labs: 10/12/16 04:20 10/12/16 04:20
[2016-10-12] MEDS: Metoprolol Succinate 100 mg XL Tab PO SCH (09:58)
--- NOTE | 2016-10-12 10:20 | CP.PCM.PN ---
Subjective - Date & Time of Evaluation Date of Evaluation: 10/12/16 Time of Evaluation: 10:13 - Subjective Subjective: Case discussed today with cardiology and ICU team. Hospice rep in to talk with patient and family. Continued use of NPPV via BiPAP ventilator alternating with HFNC. More awake and alert, still has periods of SOB and anxiety. SpO2 maintained at 94% with O2 decreased to 40%. HR better after dig yesterday, but up to 110 this AM after neb treatment. Breath sounds are present bilaterally w/o audible wheezing this morning. Scattered rhonchi and dry rales are heard bilaterally. Heart sounds are distant and rhythm irregular. Dependant edema essentially the same, no cyanosis. Patient's was reluctant to consider aggressive approach with tracheostomy and home ventilator. He is essentially the sole care provider when she returns home and feels using a home vent may prove overwhelming. Antibiotics discontinued after discussion with ID. Will trial low dose anxiolytics. Reduce O2 supplement as tolerated. Pursue home hospice placement. Patient would likely be a very poor candidate for traditional chemotherapy. Objective - Vital Signs/Intake and Output Vital Signs (last 24 hours): Temp Pulse Resp BP Pulse Ox 98.5 F 115 H 46 H 110/62 98 10/12/16 07:26 10/12/16 09:58 10/12/16 07:26 10/12/16 09:58 10/12/16 07:26 Intake and Output: 10/11/16 10/12/16 23:59 11:59 Intake Total 1015 436 Output Total 400 350 Balance 615 86 - Medications Medications: Current Medications Acetaminophen (Tylenol 325mg Tab) 650 mg PO Q6 PRN PRN Reason: Fever >100.4 F Acetazolamide (Diamox 250 Mg Tab) 500 mg PO TID [facility] Last Admin: 10/12/16 09:59 Dose: 500 mg Albuterol/Ipratropium (Duoneb 3 Mg/0.5 Mg (3 Ml) Ud) 3 ml INH RQID [facility] Last Admin: 10/12/16 07:17 Dose: 3 ml Alprazolam (Xanax) 0.25 mg PO Q8 PRN PRN Reason: Agitation Stop: 10/19/16 09:49 Aspirin (Aspirin Chewable) 81 mg PO DAILY [facility] Last Admin: 10/12/16 09:59 Dose: 81 mg Cholecalciferol (Vitamin D) 2,000 iu PO DAILY [facility] Last Admin: 10/12/16 09:59 Dose: 2,000 iu Digoxin (Lanoxin) 0.125 mg IVP DAILY [facility] Famotidine (Pepcid) 40 mg PO HS [facility] Last Admin: 10/11/16 22:00 Dose: 40 mg Folic Acid (Folic Acid) 2 mg PO DAILY [facility] Last Admin: 10/12/16 09:59 Dose: 2 mg Hydroxychloroquine Sulfate (Plaquenil) 400 mg PO DAILY [facility] Last Admin: 10/08/16 08:45 Dose: 400 mg Vancomycin HCl 1 gm/ Sodium (Chloride) 250 mls @ 166.667 mls/hr IVPB Q12@0400, 1600 [facility] Last Admin: 10/12/16 03:45 Dose: 166.667 mls/hr Meropenem 1 gm/ Sodium (Chloride) 100 mls @ 100 mls/hr IVPB Q12 [facility] Last Admin: 10/12/16 08:26 Dose: 100 mls/hr Fluconazole (Diflucan Iv 100 Mg/50 Ml Ns) 50 mls @ 50 mls/hr IVPB DAILY [facility] Last Admin: 10/12/16 08:26 Dose: 50 mls/hr Methylprednisolone 60 mg/ (Sodium Chloride) 50 mls @ 100 mls/hr IVPB Q12 [facility] Stop: 10/12/16 23:59 Last Admin: 10/12/16 08:25 Dose: 100 mls/hr Methylprednisolone 40 mg/ (Sodium Chloride) 50.64 mls @ 100 mls/hr IVPB Q12 [facility] Metoprolol Succinate (Toprol Xl) 50 mg PO DAILY [facility] Modafinil (Provigil) 200 mg PO DAILY [facility] Last Admin: 10/11/16 08:44 Dose: 200 mg Ondansetron HCl (Zofran Inj) 4 mg IVP Q6 PRN PRN Reason: Nausea/Vomiting - Labs Labs: 10/12/16 04:20 10/12/16 04:20 Assessment and Plan (1) Pulmonary infiltrates on CXR Status: Acute (2) Acute on chronic respiratory failure with hypoxia and hypercapnia Status: Acute (3) Atrial fibrillation Status: Chronic (4) 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
--- NOTE | 2016-10-12 10:27 | CP.CCUPN ---
CCU Subjective - Physician Review Subjective (Free Text): Awake and alert, but appears more anxious at times, this AM , only tolerated approx. 10 mins on HFNC before anxiously grabbing onto the bed rails, and requesting to go back on BiPAP. HR acceleration and rapidity may be due partly to anxiety as well. HR was stable in 80-90s overnight, now up to 120-130s now in A Fib. Denies any chest discomfort, palpitations, dizziness, SOB, n/v, nor other weakness. Digoxin has been ordered by Cardio. ROS: No other pertinent negs or positives on 10+ system review. Other PMSFH: All recent nursing and physician documentation reviewed and no new information noted relevant to current problems. MAJOR IMPRESSIONS / PLAN: 1. Chronic Resp failure 2 Hypercapnia 2. Metabolic Encephalopathy 2 #1 3. Bacterial pneumonia / Tracheobronchitis, r/oed with normal PCT level. 4. Rapid A Fib PLAN: 1. Night time BiPAP support, similar to her home regimen. Will start cautious anxiolytics: Xanax 0.25mg Q8H prn. 2. Diamox at TID dosing. 3. Steroids weaned as per Pulm. 4. Procalcitonin level, is low normal, discuss with ID to stop Arie (? Effect on platelets). 5. Hospice eval. 6. Cary placed 10/10/16 for onset of skin redness under groin and buttock areas. CCU Objective - Vital Signs / Intake & Output Vital Signs (Last 4 hours): Vital Signs Temp Pulse Resp BP Pulse Ox 10/12/16 09:58 115 H 110/62 10/12/16 09:22 95 H 10/12/16 07:26 98.5 F 106 H 46 H 111/68 98 Intake and Output (Last 8hrs): Intake & Output 10/11/16 10/12/16 10/12/16 22:59 06:59 14:59 Intake Total 680 436 Output Total 400 350 Balance 280 86 Intake: IV 36 Intake, Piggyback 400 250 Oral 280 150 Output: Urine 400 350 Urethral (Cary) 400 350 - Physical Exam Head: Positive for: Normocephalic Pupils: Positive for: PERRL Extroacular Muscles: Positive for: EOMI Conjunctiva: Positive for: Normal. Negative for: Icteric Mouth: Positive for: Moist Mucous Membranes. Negative for: Drooling Pharnyx: Positive for: Normal. Negative for: ERYTHEMA, EXUDATE Neck: Positive for: Normal Range of Motion. Negative for: JVD Respiratory/Chest: Positive for: Decreased Breath Sounds. Negative for: Accessory Muscle Use, Wheezes Cardiovascular: Positive for: Regular Rate and Rhythm, Normal S1, S2. Negative for: Murmurs, Rub Abdomen: Positive for: Normal Bowel Sounds. Negative for: Tenderness, Distention Upper Extremity: Positive for: Other (RUE PICC) Lower Extremity: Negative for: Edema, CALF TENDERNESS, Cyanosis Neurological: Positive for: GCS=15, CN II-XII Intact, Motor Func Grossly Intact. Negative for: Speech Normal Skin: Positive for: Warm, Other (scattered areas of ecchymoses over both upper arms). Negative for: Rashes - Medications Active Medications: Active Medications Generic Name Dose Route Start Last Admin Trade Name Freq PRN Reason Stop Dose Admin Acetaminophen 650 mg 10/05/16 16:41 Tylenol 325mg Tab PO Q6 PRN Fever >100.4 F Acetazolamide 500 mg 10/11/16 13:00 10/12/16 09:59 Diamox 250 Mg Tab PO 500 mg TID [facility] Administration Albuterol/Ipratropium 3 ml 10/05/16 20:00 10/12/16 07:17 Duoneb 3 Mg/0.5 Mg (3 Ml) Ud INH 3 ml RQID [facility] Administration Alprazolam 0.25 mg 10/12/16 09:48 10/12/16 10:22 Xanax PO 10/19/16 09:49 0.25 mg Q8 PRN Administration Agitation Aspirin 81 mg 10/06/16 09:00 10/12/16 09:59 Aspirin Chewable PO 81 mg DAILY [facility] Administration Cholecalciferol 2,000 iu 10/06/16 09:00 10/12/16 09:59 Vitamin D PO 2,000 iu DAILY [facility] Administration Digoxin 0.125 mg 10/13/16 09:00 Lanoxin IVP DAILY [facility] Famotidine 40 mg 10/05/16 22:00 10/11/16 22:00 Pepcid PO 40 mg HS [facility] Administration Folic Acid 2 mg 10/06/16 09:00 10/12/16 09:59 Folic Acid PO 2 mg DAILY [facility] Administration Hydroxychloroquine Sulfate 400 mg 10/06/16 09:00 10/08/16 08:45 Plaquenil PO 400 mg DAILY [facility] Administration Fluconazole 50 mls @ 50 mls/hr 10/08/16 09:00 10/12/16 08:26 Diflucan Iv 100 Mg/50 Ml Ns IVPB 50 mls/hr DAILY [facility] Administration Methylprednisolone 60 mg/ 50 mls @ 100 mls/hr 10/08/16 21:00 10/12/16 08:25 Sodium Chloride IVPB 10/12/16 23:59 100 mls/hr Q12 [facility] Administration Methylprednisolone 40 mg/ 50.64 mls @ 100 mls/hr 10/13/16 09:00 Sodium Chloride IVPB Q12 [facility] Metoprolol Succinate 50 mg 10/12/16 09:45 Toprol Xl PO DAILY [facility] Modafinil 200 mg 10/06/16 09:00 10/12/16 10:22 Provigil PO 200 mg DAILY [facility] Administration Ondansetron HCl 4 mg 10/05/16 16:40 Zofran Inj IVP Q6 PRN Nausea/Vomiting - Patient Studies Lab Studies: Lab Studies 10/12/16 10/12/16 10/11/16 Range/Units 04:20 04:20 05:00 WBC 8.5 (4.8-10.8) K/uL RBC 2.87 L (3.80-5.20) Mil/uL Hgb 9.5 L (12.0-16.0) g/dL Hct 31.3 L (34.0-47.0) % MCV 109.1 H (81.0-99.0) fl MCH 33.0 H (27.0-31.0) pg MCHC 30.3 L (33.0-37.0) g/dL RDW 16.5 H (11.5-14.5) % Plt Count 78 L (130-400) K/uL Sodium 144 (132-148) mmol/l Potassium 4.2 (3.6-5.0) MMOL/L Chloride 99 (98-107) mmol/L Carbon Dioxide 44 H* (22-30) mmol/L Anion Gap 5 L (10-20) BUN 30 H (7-17) mg/dl Creatinine 0.8 (0.7-1.2) mg/dL Est GFR ( Amer) > 60 Est GFR (Non-Af Amer) > 60 Random Glucose 164 H (65-105) mg/dL Calcium 9.2 (8.4-10.2) mg/dL Procalcitonin < 0.05 L (0.19-0.49) NG/ML Laboratory Results - last 24 hr 10/11/16 10/12/16 10/12/16 05:00 04:20 04:20 WBC 8.5 RBC 2.87 L Hgb 9.5 L Hct 31.3 L MCV 109.1 H MCH 33.0 H MCHC 30.3 L RDW 16.5 H Plt Count 78 L Sodium 144 Potassium 4.2 Chloride 99 Carbon Dioxide 44 H* Anion Gap 5 L BUN 30 H Creatinine 0.8 Est GFR ( Amer) > 60 Est GFR (Non-Af Amer) > 60 Random Glucose 164 H Calcium 9.2 Procalcitonin < 0.05 L Fingerstick Blood Sugar Results: 264 Critical Care Progress Note - Nutrition Nutrition: Nutrition Category Date Time Status Regular Diet [DIET] Diets 10/05/16 Dinner Active
--- NOTE | 2016-10-12 11:31 | CP.PCM.PN ---
Subjective - Date & Time of Evaluation Date of Evaluation: 10/12/16 Time of Evaluation: 10:30 - Subjective Subjective: No fever Remains on Bipap alert, oriented at present feeling anxious - Xanax started + resp distress no CP no abd pain Platelet low Objective - Vital Signs/Intake and Output Vital Signs (last 24 hours): Temp Pulse Resp BP Pulse Ox 98.5 F 110 H 41 H 120/49 L 94 L 10/12/16 07:26 10/12/16 10:00 10/12/16 10:00 10/12/16 10:00 10/12/16 10:00 Intake and Output: 10/12/16 10/12/16 06:59 18:59 Intake Total 646 Output Total 350 Balance 296 - Medications Medications: Current Medications Acetaminophen (Tylenol 325mg Tab) 650 mg PO Q6 PRN PRN Reason: Fever >100.4 F Acetazolamide (Diamox 250 Mg Tab) 500 mg PO TID [facility] Last Admin: 10/12/16 09:59 Dose: 500 mg Albuterol/Ipratropium (Duoneb 3 Mg/0.5 Mg (3 Ml) Ud) 3 ml INH RQID [facility] Last Admin: 10/12/16 11:17 Dose: 3 ml Alprazolam (Xanax) 0.25 mg PO Q8 PRN PRN Reason: Agitation Stop: 10/19/16 09:49 Last Admin: 10/12/16 10:22 Dose: 0.25 mg Aspirin (Aspirin Chewable) 81 mg PO DAILY [facility] Last Admin: 10/12/16 09:59 Dose: 81 mg Digoxin (Lanoxin) 0.125 mg IVP DAILY [facility] Famotidine (Pepcid) 40 mg PO HS [facility] Last Admin: 10/11/16 22:00 Dose: 40 mg Folic Acid (Folic Acid) 2 mg PO DAILY [facility] Last Admin: 10/12/16 09:59 Dose: 2 mg Hydroxychloroquine Sulfate (Plaquenil) 400 mg PO DAILY [facility] Last Admin: 10/08/16 08:45 Dose: 400 mg Fluconazole (Diflucan Iv 100 Mg/50 Ml Ns) 50 mls @ 50 mls/hr IVPB DAILY [facility] Last Admin: 10/12/16 08:26 Dose: 50 mls/hr Methylprednisolone 60 mg/ (Sodium Chloride) 50 mls @ 100 mls/hr IVPB Q12 [facility] Stop: 10/12/16 23:59 Last Admin: 10/12/16 08:25 Dose: 100 mls/hr Methylprednisolone 40 mg/ (Sodium Chloride) 50.64 mls @ 100 mls/hr IVPB Q12 [facility] Metoprolol Succinate (Toprol Xl) 50 mg PO DAILY [facility] Modafinil (Provigil) 200 mg PO DAILY [facility] Last Admin: 10/12/16 10:22 Dose: 200 mg Ondansetron HCl (Zofran Inj) 4 mg IVP Q6 PRN PRN Reason: Nausea/Vomiting - Labs Labs: 10/12/16 04:20 10/12/16 04:20 - Constitutional Appears: Older Than Stated Age, Chronically Ill - Head Exam Head Exam: NORMAL INSPECTION, NORMOCEPHALIC - Eye Exam Eye Exam: EOMI, Normal appearance, PERRL - ENT Exam ENT Exam: Mucous Membranes Dry, Normal External Ear Exam - Neck Exam Neck Exam: Full ROM. absent: Meningismus - Respiratory Exam Respiratory Exam: Decreased Breath Sounds, Rales, Rhonchi, + wheezing Additional comments: On Bipap - Cardiovascular Exam Cardiovascular Exam: IRREGULAR RHYTHM, +S1, +S2 - GI/Abdominal Exam GI & Abdominal Exam: Soft, Normal Bowel Sounds. absent: Tenderness - Extremities Exam Additional comments: erythematous bilat foot, toes cold - Back Exam Back Exam: Full ROM. 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 Prior to TCU, she was admitted to the ICU for Acute on Chronic Resp Failure, COPD exacerbation and Pneumonia. Patient is well known to our service from prior admissions. She is a chronic CO2 retainer with PCO2 baseline 80. Readmitted to the ICU, due to CO2 narcosis and was placed on Bipap in the ER with improvement of mental status, started on Duonebs, Solumedrol. Patient has very poor prognosis due to her respiratory status. She has episodes of lethargy due to CO2 narcosis but has been able to respond to BIPAP and high flow O2 ventilation so far ,avoiding intubation . Hospice Care consulted 1. Acute on Chronic Respiratory Failure with Hypoxia and Hypercapnea likely sec to COPD Exacerbation Pt persistently hypercapneic and requires Bipap Pulmonary , Dr. Yusuf following Will continue BIPAP 22/08/23/50 % Continue Solumedrol , Duonebs, Acetazolamide Tapered Solumedrol 60 mg IV Q12 Patient has very poor prognosis Hospice consulted 2. Metastatic squamous cell carcinoma of the lung Patient has been following up in [facility] Recent PET scan showed metastatic disease 3. Altered mental status secondary to CO2 narcosis more awake today Will continue BIPAP 4. Bilateral pneumonia ID consulted - Dr Larsen Received Meropenem, Diflucan and Vanco Sputum c/s: no organism Procalcitonin normal- d/c IV abx 5. Paroxysmal A Fib with RVR and MATs uncontrolled with HR elevated to 150s Cardizem drip was started , now d/c Dr peralta consulted - rec starting Digoxin ASA 81 mg PO daily Continue Metoprolol 100 mg PO daily currently not on anticoagulation Replace K Hold Plaquenil as may exacerbate arrhythmia 6. Chronic CHF (congestive heart failure), Diastolic Dysfunction/Pulm HTN Continue Metoprolol and Lasix 7. HTN (hypertension) BP stable on Metoprolol 8. Hyperlipidemia Atorvastatin 10 mg PO QHS 9. GERD (gastroesophageal reflux disease) Protonix 40 mg 10. Rheumatoid arthritis/Peripheral Neuropathy of Bilateral Feet History Interstitial Lung Disease Methotrexate 15 mg PO every Saturday- will hold for now as discussed with Dr Satish alvarado Folic Acid d/c Plaquenil due to cardiac arrythmias d/c Gabapentin due to lethargy 11. Peripheral Vascular Disease/Chronic Venous Insufficiency With chronic LE edema and venous stasis erythematous toes bilaterally and cool to touch Lac-hydrin lotion to dry skin LE Continue ASA 12. UTI Urine culture positive for Enteroccocus faecalis (09/24/16) repeat urine cx growing yeast Started on Diflucan Pt received Meropenem and Vanco 13. Thrombocytopenia - prob sec to Infection, meds - hold Lovenox for now as pLatelet is 76 - will monitor closely - check HIT 13. DVT prophylaxis Lovenox 40mg SC daily- will hold for now as Platelet went down to 76 and pt has a lot of bruises
--- NOTE | 2016-10-12 14:47 | RAD ---
HISTORY: Shortness of breath. Portable study 10:48. COMPARISON: 10/09/2016. FINDINGS: LUNGS: Interval improvement multifocal infiltrates. Residual infiltrate primarily in the right upper lobe. PLEURA: No significant pleural effusion identified, no pneumothorax apparent. CARDIOVASCULAR: No radiographic findings to suggest acute or significant cardiovascular disease. PICC line in satisfactory position unchanged compared to prior studies. OSSEOUS STRUCTURES: No significant abnormalities. VISUALIZED UPPER ABDOMEN: Normal. OTHER FINDINGS: None. IMPRESSION: Improving multifocal infiltrates.
[2016-10-12] MEDS: Ammonium Lactate 12% Cream (140 g) TOP SCH ×2 (16:26→18:49)
[2016-10-12] MEDS: Metoprolol Succinate 50 mg XL Tab PO SCH (16:27)
[2016-10-13 06:04] LABS: HEMATOCRIT 31.8 % (34.0-47.0); MEAN CELL VOLUME 108.6 fl (81.0-99.0); MEAN CORPUSCULAR HGB CONC 30.4 g/dL (33.0-37.0); RED CELL DISTRIBUTION WIDTH 16.9 % (11.5-14.5)
[2016-10-13 06:11] LABS: ALB/GLOB RATIO 1.2 (1.0-2.1); ALKALINE PHOSPHATASE 66 U/L (38-126); ALT/SGPT 93 U/L (9-52); AST/SGOT 47 U/L (14-36); BILIRUBIN,TOTAL 0.7 mg/dl (0.2-1.3); BLOOD UREA NITROGEN 31 mg/dl (7-17); CALCIUM 9.6 mg/dL (8.4-10.2); CHLORIDE 99 mmol/L (98-107); GFR AFRICAN-AMERICAN > 60; GLUCOSE,RANDOM 182 mg/dL (65-105); POTASSIUM 4.3 MMOL/L (3.6-5.0); SODIUM 144 mmol/l (132-148); TOTAL PROTEIN 5.2 G/DL (6.3-8.2); WHITE BLOOD COUNT 8.7 K/uL (4.8-10.8)
[2016-10-13 06:20] LABS: CARBON DIOXIDE 42 mmol/L (22-30)
--- NOTE | 2016-10-13 07:21 | CP.CCUPN ---
CCU Subjective - Physician Review Subjective (Free Text): 10/13/16 12:17 The patient was Seen and examined by me at the bedside, Medical records reviewed and Management issues were discussed and formulated with the house staff. Clinically improving, more awake and responsive, Follows simple commands. Tolerating PO diet. Afebrile. No CP, less dyspneic Improved Respiratory status and unlabored breathing but SOB on minimal exertion. Continued on BIPAP machine with settings maintained 20/6 Rate 24 40% O2 alternating with HFNC. Antibiotics discontinued after discussion with PMD and ID. HR better controlled on digoxin and metoprolol Started on low dose Xanax 0.25mg Q8H PRN yesterday Labs showing decreasing Bicarb level to 42, no leukocytosis, Stable renal function and K of 4.3 CCU Objective - Vital Signs / Intake & Output Vital Signs (Last 4 hours): Vital Signs Temp Pulse Resp BP Pulse Ox 10/13/16 06:00 108 H 21 123/75 95 10/13/16 05:00 109 H 18 102/76 94 L 10/13/16 04:00 98.4 F 95 H 24 131/69 93 L Intake and Output (Last 8hrs): Intake & Output 10/12/16 10/13/16 10/13/16 22:59 06:59 14:59 Intake Total 760 66 Output Total 350 300 Balance 410 -234 Intake: IV 16 Intake, Piggyback 300 Oral 460 50 Output: Urine 350 300 Urethral (Cary) 350 300 Other: # Bowel Movements 0 - Physical Exam Head: Positive for: Normocephalic Pupils: Positive for: PERRL Extroacular Muscles: Positive for: EOMI Conjunctiva: Positive for: Normal. Negative for: Icteric Mouth: Positive for: Moist Mucous Membranes. Negative for: Drooling Pharnyx: Positive for: Normal. Negative for: ERYTHEMA, EXUDATE Neck: Positive for: Normal Range of Motion. Negative for: JVD Respiratory/Chest: Positive for: Decreased Breath Sounds. Negative for: Accessory Muscle Use, Wheezes Cardiovascular: Positive for: Regular Rate and Rhythm, Normal S1, S2. Negative for: Murmurs, Rub Abdomen: Positive for: Normal Bowel Sounds. Negative for: Tenderness, Distention Upper Extremity: Positive for: Other (RUE PICC) Lower Extremity: Negative for: Edema, CALF TENDERNESS, Cyanosis Neurological: Positive for: GCS=15, CN II-XII Intact, Motor Func Grossly Intact. Negative for: Speech Normal Skin: Positive for: Warm, Other (scattered areas of ecchymoses over both upper arms). Negative for: Rashes - Medications Active Medications: Active Medications Generic Name Dose Route Start Last Admin Trade Name Freq PRN Reason Stop Dose Admin Acetaminophen 650 mg 10/05/16 16:41 Tylenol 325mg Tab PO Q6 PRN Fever >100.4 F Acetazolamide 500 mg 10/11/16 13:00 10/12/16 16:25 Diamox 250 Mg Tab PO 500 mg TID BROWN Administration Albuterol/Ipratropium 3 ml 10/05/16 20:00 10/12/16 19:31 Duoneb 3 Mg/0.5 Mg (3 Ml) Ud INH 3 ml RQID BROWN Administration Alprazolam 0.5 mg 10/12/16 12:58 10/12/16 18:42 Xanax PO 10/19/16 09:49 0.5 mg Q8 PRN Administration Agitation Aspirin 81 mg 10/06/16 09:00 10/12/16 09:59 Aspirin Chewable PO 81 mg DAILY BROWN Administration Digoxin 0.125 mg 10/13/16 09:00 Lanoxin IVP DAILY BROWN Famotidine 40 mg 10/05/16 22:00 10/12/16 22:00 Pepcid PO 40 mg HS BROWN Administration Folic Acid 2 mg 10/06/16 09:00 10/12/16 09:59 Folic Acid PO 2 mg DAILY BROWN Administration Hydroxychloroquine Sulfate 400 mg 10/06/16 09:00 10/08/16 08:45 Plaquenil PO 400 mg DAILY BROWN Administration Fluconazole 50 mls @ 50 mls/hr 10/08/16 09:00 10/12/16 08:26 Diflucan Iv 100 Mg/50 Ml Ns IVPB 50 mls/hr DAILY BROWN Administration Methylprednisolone 40 mg/ 50.64 mls @ 100 mls/hr 10/13/16 09:00 Sodium Chloride IVPB Q12 BROWN Lactic Acid 1 ea 10/12/16 13:48 10/12/16 18:49 Lac-Hydrin 12% Cream (140 G) TOP Not Given BID [facility] Metoprolol Succinate 50 mg 10/12/16 09:45 10/12/16 16:27 Toprol Xl PO Not Given DAILY BROWN Modafinil 200 mg 10/06/16 09:00 10/12/16 10:22 Provigil PO 200 mg DAILY BROWN Administration Ondansetron HCl 4 mg 10/05/16 16:40 Zofran Inj IVP Q6 PRN Nausea/Vomiting - Patient Studies Lab Studies: Lab Studies 10/13/16 10/13/16 Range/Units 05:30 05:30 WBC 8.7 (4.8-10.8) K/uL RBC 2.93 L (3.80-5.20) Mil/uL Hgb 9.7 L (12.0-16.0) g/dL Hct 31.8 L (34.0-47.0) % MCV 108.6 H (81.0-99.0) fl MCH 33.0 H (27.0-31.0) pg MCHC 30.4 L (33.0-37.0) g/dL RDW 16.9 H (11.5-14.5) % Plt Count 78 L (130-400) K/uL Sodium 144 (132-148) mmol/l Potassium 4.3 (3.6-5.0) MMOL/L Chloride 99 (98-107) mmol/L Carbon Dioxide 42 H* (22-30) mmol/L Anion Gap 7 L (10-20) BUN 31 H (7-17) mg/dl Creatinine 0.8 (0.7-1.2) mg/dL Est GFR ( Amer) > 60 Est GFR (Non-Af Amer) > 60 Random Glucose 182 H (65-105) mg/dL Calcium 9.6 (8.4-10.2) mg/dL Total Bilirubin 0.7 (0.2-1.3) mg/dl AST 47 H (14-36) U/L ALT 93 H D (9-52) U/L Alkaline Phosphatase 66 (38-126) U/L Total Protein 5.2 L (6.3-8.2) G/DL Albumin 2.8 L (3.5-5.0) g/dL Globulin 2.4 (2.2-3.9) gm/dL Albumin/Globulin Ratio 1.2 (1.0-2.1) Laboratory Results - last 24 hr 10/13/16 10/13/16 05:30 05:30 WBC 8.7 RBC 2.93 L Hgb 9.7 L Hct 31.8 L MCV 108.6 H MCH 33.0 H MCHC 30.4 L RDW 16.9 H Plt Count 78 L Sodium 144 Potassium 4.3 Chloride 99 Carbon Dioxide 42 H* Anion Gap 7 L BUN 31 H Creatinine 0.8 Est GFR ( Amer) > 60 Est GFR (Non-Af Amer) > 60 Random Glucose 182 H Calcium 9.6 Total Bilirubin 0.7 AST 47 H ALT 93 H D Alkaline Phosphatase 66 Total Protein 5.2 L Albumin 2.8 L Globulin 2.4 Albumin/Globulin Ratio 1.2 Fingerstick Blood Sugar Results: 264 Review of Systems - Cardiovascular Cardiovascular: absent: Chest Pain, Chest Pain at Rest, Chest Pain with Activity - Respiratory Respiratory: Cough, Dyspnea. absent: Hemoptysis, Wheezing - Gastrointestinal Gastrointestinal: absent: Abdominal Pain Critical Care Progress Note - Nutrition Nutrition: Nutrition Category Date Time Status Regular Diet [DIET] Diets 10/05/16 Dinner Active Assessment/Plan (1) Acute on chronic respiratory failure with hypoxia and hypercapnia Current Visit: Yes Status: Acute Comment: Improved Respiratory status and unlabored breathing but SOB on minimal exertion. ALBUTEROL/Atrovent Nebs q6h PRN IV Solumedrol Pulmonary evaluation appretiated Aggressive pulmonary toilet, chest PT, suctioning Continued on BIPAP machine with settings maintained 20/6 Rate 24 40% O2 alternating with HFNC. Keep SaO2 >92% (2) COPD (chronic obstructive pulmonary disease) Current Visit: No Status: Chronic Priority: High Comment: As per Resp failure Methylprednisolone 40 mg IVPB Q12 BROWN (3) Metabolic encephalopathy Current Visit: Yes Status: Acute Comment: Improved mental status On Provigil 200 mg PO DAILY (4) Atrial fibrillation Current Visit: No Status: Chronic Priority: High Comment: HR better controlled on digoxin and metoprolol ASA 81 mg PO daily (5) Bronchogenic carcinoma of left lung Current Visit: No Status: Chronic Priority: High Comment: Stage 4 with ecent PET scan showing metastatic disease Pain controlled (6) Pulmonary hypertension Current Visit: No Status: Chronic Priority: High Comment: Due to underlying lung disease, supplemental oxygen. (7) Prophylactic measure Current Visit: No Status: Acute Comment: Pepcid 40 mg PO DAILY ASA 81 mg PO daily
[2016-10-13] MEDS: Albuterol-Ipratrop 3 mg / 0.5 (3 ml) UD INH SCH ×4 (07:30→19:00)
[2016-10-13] MEDS: Fluconazole IV 100mg/50 ml NS 50 ML IVPB SCH (08:47)
[2016-10-13] MEDS: Ammonium Lactate 12% Cream (140 g) TOP SCH ×2 (08:47→17:08)
[2016-10-13] MEDS: Metoprolol Succinate 50 mg XL Tab PO SCH (08:48)
[2016-10-13] MEDS: methylPREDNISolone 40 MG in Sodium Chloride 0.9% 50 ML IVPB SCH ×2 (09:19→20:00)
[2016-10-13] MEDS: Digoxin 500 mcg/2ml (0.5 mg/2ml) Inj IVP SCH (09:20)
--- NOTE | 2016-10-13 10:30 | CP.PCM.PN ---
Subjective - Date & Time of Evaluation Date of Evaluation: 10/13/16 Time of Evaluation: 10:15 - Subjective Subjective: Pt currently on Bipap 22/08/23/40% Looks comfortable on the Bipap, saturating at 97% No fever Slept well last night accdg to her no CP no abd pain Objective - Vital Signs/Intake and Output Vital Signs (last 24 hours): Temp Pulse Resp BP Pulse Ox 97.5 F L 109 H 27 H 140/80 90 L 10/13/16 08:00 10/13/16 09:00 10/13/16 09:00 10/13/16 09:00 10/13/16 09:00 Intake and Output: 10/13/16 10/13/16 06:59 18:59 Intake Total 176 100 Output Total 300 Balance -124 100 - Medications Medications: Current Medications Acetaminophen (Tylenol 325mg Tab) 650 mg PO Q6 PRN PRN Reason: Fever >100.4 F Acetazolamide (Diamox 250 Mg Tab) 500 mg PO TID [facility] Last Admin: 10/13/16 08:46 Dose: 500 mg Albuterol/Ipratropium (Duoneb 3 Mg/0.5 Mg (3 Ml) Ud) 3 ml INH RQID [facility] Last Admin: 10/13/16 07:30 Dose: 3 ml Alprazolam (Xanax) 0.5 mg PO Q8 PRN PRN Reason: Agitation Stop: 10/19/16 09:49 Last Admin: 10/12/16 18:42 Dose: 0.5 mg Aspirin (Aspirin Chewable) 81 mg PO DAILY [facility] Last Admin: 10/13/16 08:46 Dose: 81 mg Digoxin (Lanoxin) 0.125 mg IVP DAILY [facility] Last Admin: 10/13/16 09:20 Dose: 0.125 mg Famotidine (Pepcid) 40 mg PO HS [facility] Last Admin: 10/12/16 22:00 Dose: 40 mg Folic Acid (Folic Acid) 2 mg PO DAILY [facility] Last Admin: 10/13/16 08:47 Dose: 2 mg Hydroxychloroquine Sulfate (Plaquenil) 400 mg PO DAILY [facility] Last Admin: 10/08/16 08:45 Dose: 400 mg Fluconazole (Diflucan Iv 100 Mg/50 Ml Ns) 50 mls @ 50 mls/hr IVPB DAILY [facility] Last Admin: 10/13/16 08:47 Dose: 50 mls/hr Methylprednisolone 40 mg/ (Sodium Chloride) 50.64 mls @ 100 mls/hr IVPB Q12 [facility] Last Admin: 10/13/16 09:19 Dose: 100 mls/hr Lactic Acid (Lac-Hydrin 12% Cream (140 G)) 1 ea TOP BID [facility] Last Admin: 10/13/16 08:47 Dose: 1 applic Metoprolol Succinate (Toprol Xl) 50 mg PO DAILY [facility] Last Admin: 10/13/16 08:48 Dose: 50 mg Modafinil (Provigil) 200 mg PO DAILY [facility] Last Admin: 10/13/16 09:25 Dose: 200 mg Ondansetron HCl (Zofran Inj) 4 mg IVP Q6 PRN PRN Reason: Nausea/Vomiting - Labs Labs: 10/13/16 05:30 10/13/16 05:30 - Constitutional Appears: Older Than Stated Age, Chronically Ill on Bipap - Head Exam Head Exam: NORMAL INSPECTION, NORMOCEPHALIC - Eye Exam Eye Exam: EOMI, Normal appearance, PERRL - ENT Exam ENT Exam: Mucous Membranes Dry, Normal External Ear Exam - Neck Exam Neck Exam: Full ROM. absent: Meningismus - Respiratory Exam Respiratory Exam: Decreased Breath Sounds, Rales, Rhonchi, + wheezing Additional comments: On Bipap - Cardiovascular Exam Cardiovascular Exam: IRREGULAR RHYTHM, +S1, +S2 - GI/Abdominal Exam GI & Abdominal Exam: Soft, Normal Bowel Sounds. absent: Tenderness - Extremities Exam Additional comments: erythematous bilat foot, toes cold - Back Exam Back Exam: Full ROM. 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 Prior to TCU, she was admitted to the ICU for Acute on Chronic Resp Failure, COPD exacerbation and Pneumonia. Patient is well known to our service from prior admissions. She is a chronic CO2 retainer with PCO2 baseline 80. Readmitted to the ICU, due to CO2 narcosis and was placed on Bipap in the ER with improvement of mental status, started on Duonebs, Solumedrol. Patient has very poor prognosis due to her respiratory status. She has episodes of lethargy due to CO2 narcosis but has been able to respond to BIPAP and high flow O2 ventilation so far ,avoiding intubation . 1. Acute on Chronic Respiratory Failure with Hypoxia and Hypercapnea likely sec to COPD Exacerbation Pt persistently hypercapneic and requires Bipap Pulmonary , Dr. Yusuf following BIPAP 20/6/24/40 % Continue Solumedrol , Duonebs, Acetazolamide Tapered Solumedrol 60 mg IV Q12 Patient has very poor prognosis 2. Metastatic squamous cell carcinoma of the lung Patient has been following up in [facility] Recent PET scan showed metastatic disease 3. Altered mental status secondary to CO2 narcosis more awake today Will continue BIPAP 4. Bilateral pneumonia ID consulted - Dr Larsen Received Meropenem, Diflucan and Vanco Sputum c/s: no organism Procalcitonin normal- d/c IV abx 5. Paroxysmal A Fib with RVR and MATs uncontrolled with HR elevated to 150s Cardizem drip was started , now d/c Dr peralta consulted - rec starting Digoxin ASA 81 mg PO daily Continue Metoprolol 100 mg PO daily currently not on anticoagulation Replace K Hold Plaquenil as may exacerbate arrhythmia 6. Chronic CHF (congestive heart failure), Diastolic Dysfunction/Pulm HTN Continue Metoprolol and Lasix 7. HTN (hypertension) BP stable on Metoprolol 8. Hyperlipidemia Atorvastatin 10 mg PO QHS 9. GERD (gastroesophageal reflux disease) Protonix 40 mg 10. Rheumatoid arthritis/Peripheral Neuropathy of Bilateral Feet History Interstitial Lung Disease Methotrexate 15 mg PO every Saturday- will hold for now as discussed with Dr Satish alvarado Folic Acid d/c Plaquenil due to cardiac arrythmias d/c Gabapentin due to lethargy 11. Peripheral Vascular Disease/Chronic Venous Insufficiency With chronic LE edema and venous stasis erythematous toes bilaterally and cool to touch Lac-hydrin lotion to dry skin LE Continue ASA 12. UTI Urine culture positive for Enteroccocus faecalis (09/24/16) repeat urine cx growing yeast Started on Diflucan Pt received Meropenem and Vanco 13. Thrombocytopenia - prob sec to Infection, meds - hold Lovenox for now as pLatelet is 78 - will monitor closely -HIT- pending 13. DVT prophylaxis Lovenox 40mg SC daily- will hold for now as Platelet went down to 76 and pt has a lot of bruises
[2016-10-14] MEDS: Albuterol-Ipratrop 3 mg / 0.5 (3 ml) UD INH SCH ×4 (07:56→19:33)
[2016-10-14 08:08] LABS: HEMATOCRIT 35.2 % (34.0-47.0); MEAN CELL VOLUME 108.7 fl (81.0-99.0); MEAN CORPUSCULAR HGB CONC 30.3 g/dL (33.0-37.0); RED CELL DISTRIBUTION WIDTH 16.4 % (11.5-14.5); WHITE BLOOD COUNT 12.8 K/uL (4.8-10.8)
[2016-10-14] MEDS: Fluconazole IV 100mg/50 ml NS 50 ML IVPB SCH (08:26)
[2016-10-14] MEDS: Ammonium Lactate 12% Cream (140 g) TOP SCH ×2 (08:27→16:10)
[2016-10-14] MEDS: Digoxin 500 mcg/2ml (0.5 mg/2ml) Inj IVP SCH (08:27)
[2016-10-14] MEDS: methylPREDNISolone 40 MG in Sodium Chloride 0.9% 50 ML IVPB SCH ×2 (08:27→21:25)
[2016-10-14] MEDS: Metoprolol Succinate 50 mg XL Tab PO SCH (08:28)
[2016-10-14 08:32] LABS: BLOOD UREA NITROGEN 35 mg/dl (7-17); CALCIUM 9.9 mg/dL (8.4-10.2); CHLORIDE 98 mmol/L (98-107); GFR AFRICAN-AMERICAN > 60; GLUCOSE,RANDOM 183 mg/dL (65-105); POTASSIUM 4.5 MMOL/L (3.6-5.0); SODIUM 143 mmol/l (132-148)
[2016-10-14 09:41] LABS: CARBON DIOXIDE 43 mmol/L (22-30)
--- NOTE | 2016-10-14 09:56 | CP.CCUPN ---
CCU Subjective - Physician Review Events Since Last Encounter (Free Text): 10/14/16 09:53 On HFNC 40 LPM and doing better, saturation 95% and awake and alert. BP well controlled and also vent response to a fin Lab and meds reviewed from this am and d/w nurse. CCU Objective - Vital Signs / Intake & Output Vital Signs (Last 4 hours): Vital Signs Pulse BP 10/14/16 08:28 101 H 144/89 Intake and Output (Last 8hrs): Intake & Output 10/13/16 10/14/16 10/14/16 22:59 06:59 14:59 Intake Total 280 144 120 Output Total 300 350 Balance -20 -206 120 Intake: IV 24 Intake, Piggyback 50 Oral 230 120 120 Output: Urine 300 350 Urethral (Cary) 300 350 - Physical Exam Narrative Physical Exam (Free Text): 10/14/16 09:55 P/E Neck: No JVD Lungs : decreased breath sounds bilaterally Heart: S1 S2 irregular Abdomen: distended, soft, non-tender Ext: + 2 edema Head: Positive for: Normocephalic Pupils: Positive for: PERRL Extroacular Muscles: Positive for: EOMI Conjunctiva: Positive for: Normal. Negative for: Icteric Mouth: Positive for: Moist Mucous Membranes. Negative for: Drooling Pharnyx: Positive for: Normal. Negative for: ERYTHEMA, EXUDATE Neck: Positive for: Normal Range of Motion. Negative for: JVD Respiratory/Chest: Positive for: Decreased Breath Sounds. Negative for: Accessory Muscle Use, Wheezes Cardiovascular: Positive for: Regular Rate and Rhythm, Normal S1, S2. Negative for: Murmurs, Rub Abdomen: Positive for: Normal Bowel Sounds. Negative for: Tenderness, Distention Upper Extremity: Positive for: Other (RUE PICC) Lower Extremity: Negative for: Edema, CALF TENDERNESS, Cyanosis Neurological: Positive for: GCS=15, CN II-XII Intact, Motor Func Grossly Intact. Negative for: Speech Normal Skin: Positive for: Warm, Other (scattered areas of ecchymoses over both upper arms). Negative for: Rashes - Medications Active Medications: Active Medications Generic Name Dose Route Start Last Admin Trade Name Freq PRN Reason Stop Dose Admin Acetaminophen 650 mg 10/05/16 16:41 Tylenol 325mg Tab PO Q6 PRN Fever >100.4 F Acetazolamide 500 mg 10/11/16 13:00 10/14/16 08:26 Diamox 250 Mg Tab PO 500 mg TID BROWN Administration Albuterol/Ipratropium 3 ml 10/05/16 20:00 10/14/16 07:56 Duoneb 3 Mg/0.5 Mg (3 Ml) Ud INH 3 ml RQID BROWN Administration Alprazolam 0.5 mg 10/12/16 12:58 10/14/16 04:10 Xanax PO 10/19/16 09:49 0.5 mg Q8 PRN Administration Agitation Aspirin 81 mg 10/06/16 09:00 10/14/16 08:25 Aspirin Chewable PO 81 mg DAILY BROWN Administration Digoxin 0.125 mg 10/13/16 09:00 10/14/16 08:27 Lanoxin IVP 0.125 mg DAILY BROWN Administration Famotidine 40 mg 10/05/16 22:00 10/13/16 22:00 Pepcid PO 40 mg HS BROWN Administration Folic Acid 2 mg 10/06/16 09:00 10/14/16 08:26 Folic Acid PO 2 mg DAILY BROWN Administration Hydroxychloroquine Sulfate 400 mg 10/06/16 09:00 10/08/16 08:45 Plaquenil PO 400 mg DAILY BROWN Administration Fluconazole 50 mls @ 50 mls/hr 10/08/16 09:00 10/14/16 08:26 Diflucan Iv 100 Mg/50 Ml Ns IVPB 50 mls/hr DAILY BROWN Administration Methylprednisolone 40 mg/ 50.64 mls @ 100 mls/hr 10/13/16 09:00 10/14/16 08: 27 Sodium Chloride IVPB 100 mls/hr Q12 BROWN Administration Lactic Acid 1 ea 10/12/16 13:48 10/14/16 08:27 Lac-Hydrin 12% Cream (140 G) TOP 1 applic BID BROWN Administration Metoprolol Succinate 50 mg 10/12/16 09:45 10/14/16 08:28 Toprol Xl PO 50 mg DAILY BROWN Administration Modafinil 200 mg 10/06/16 09:00 10/14/16 08:30 Provigil PO 200 mg DAILY BROWN Administration Ondansetron HCl 4 mg 10/05/16 16:40 Zofran Inj IVP Q6 PRN Nausea/Vomiting - Patient Studies Lab Studies: Lab Studies 10/14/16 10/14/16 Range/Units 06:00 05:30 WBC 12.8 H (4.8-10.8) K/uL RBC 3.24 L (3.80-5.20) Mil/uL Hgb 10.7 L (12.0-16.0) g/dL Hct 35.2 (34.0-47.0) % MCV 108.7 H (81.0-99.0) fl MCH 33.0 H (27.0-31.0) pg MCHC 30.3 L (33.0-37.0) g/dL RDW 16.4 H (11.5-14.5) % Plt Count 98 L D (130-400) K/uL Sodium 143 (132-148) mmol/l Potassium 4.5 (3.6-5.0) MMOL/L Chloride 98 (98-107) mmol/L Carbon Dioxide 43 H* (22-30) mmol/L Anion Gap 7 L (10-20) BUN 35 H (7-17) mg/dl Creatinine 0.9 (0.7-1.2) mg/dL Est GFR ( Amer) > 60 Est GFR (Non-Af Amer) > 60 Random Glucose 183 H (65-105) mg/dL Calcium 9.9 (8.4-10.2) mg/dL Laboratory Results - last 24 hr 10/14/16 10/14/16 05:30 06:00 WBC 12.8 H RBC 3.24 L Hgb 10.7 L Hct 35.2 MCV 108.7 H MCH 33.0 H MCHC 30.3 L RDW 16.4 H Plt Count 98 L D Sodium 143 Potassium 4.5 Chloride 98 Carbon Dioxide 43 H* Anion Gap 7 L BUN 35 H Creatinine 0.9 Est GFR ( Amer) > 60 Est GFR (Non-Af Amer) > 60 Random Glucose 183 H Calcium 9.9 Fingerstick Blood Sugar Results: 264 Review of Systems - Review of Systems Systems not reviewed;Unavailable: Unstable Vital Signs - Constitutional Constitutional: Malaise - Cardiovascular Cardiovascular: Dyspnea - Respiratory Respiratory: Dyspnea, Wheezing - Gastrointestinal Gastrointestinal: UNREMARKABLE Critical Care Progress Note - Nutrition Nutrition: Nutrition Category Date Time Status Regular Diet [DIET] Diets 08/04/17 Dinner Active Assessment/Plan - Assessment and Plan (Free Text) Assessment: 1. Acute on Chronic Respiratory Failure with Hypoxia and Hypercapnea likely sec to COPD Exacerbation Pt persistently hypercapneic and requires Bipap On HFNL 40 LPM now , was on BiPAI, will continue Continue Solumedrol , Duonebs, Acetazolamide Tapered Solumedrol 40 mg IV Q12 2. Metastatic squamous cell carcinoma of the lung Patient has been following up in [facility] Recent PET scan showed metastatic disease 3. Bilateral pneumonia Received Meropenem, Diflucan and Vanco Sputum c/s: no organism Procalcitonin normal- d/c IV abx 4. Paroxysmal A Fib with RVR and MATs Vent respnsie, better controlled now Cardizem drip was started , now d/c On Dig Digoxin ASA 81 mg PO daily On Metoprolol 100 mg PO daily currently not on anticoagulation Replace K 5. Chronic CHF (congestive heart failure), Diastolic Dysfunction/Pulm HTN Continue Metoprolol and Lasix 6. GERD (gastroesophageal reflux disease) Protonix 40 mg 7. Rheumatoid arthritis/Peripheral Neuropathy of Bilateral Feet History Interstitial Lung Disease Methotrexate 15 mg PO every Saturday- will hold for now cont Folic Acid d/c Plaquenil due to cardiac arrythmias d/c Gabapentin due to lethargy 8. Peripheral Vascular Disease/Chronic Venous Insufficiency With chronic LE edema and venous stasis erythematous toes bilaterally and cool to touch Lac-hydrin lotion to dry skin LE Continue ASA 9. UTI Urine culture positive for Enteroccocus faecalis (09/24/16) repeat urine cx growing yeast Started on Diflucan Pt received Meropenem and Vanco 10. DVT prophylaxis Lovenox 40mg SC daily- will hold for now as Platelet went down to 76 and pt has a lot of bruises, plat: improving now 98
--- NOTE | 2016-10-14 14:08 | CP.PCM.PN ---
Subjective - Date & Time of Evaluation Date of Evaluation: 10/14/16 Time of Evaluation: 08:00 - Subjective Subjective: Patient seen and examined bedside. Chronically ill female , overweight , lying in bed in mild respiratory distress on high flow O2 40 LPM FIO2 60 % saturating 91%. With accessory muscle use and prolonged expiratory phase.tachycardic HR 101 , afebrile, BP stable No acute issues overnight, tolerating BIPAP Objective - Vital Signs/Intake and Output Vital Signs (last 24 hours): Temp Pulse Resp BP Pulse Ox 99.4 F 89 24 147/79 94 L 10/14/16 05:00 10/14/16 13:00 10/14/16 13:00 10/14/16 13:00 10/14/16 13:00 Intake and Output: 10/14/16 10/14/16 06:59 18:59 Intake Total 304 560 Output Total 350 Balance -46 560 - Medications Medications: Current Medications Acetaminophen (Tylenol 325mg Tab) 650 mg PO Q6 PRN PRN Reason: Fever >100.4 F Acetazolamide (Diamox 250 Mg Tab) 500 mg PO TID [facility] Last Admin: 10/14/16 12:32 Dose: 500 mg Albuterol/Ipratropium (Duoneb 3 Mg/0.5 Mg (3 Ml) Ud) 3 ml INH RQID [facility] Last Admin: 10/14/16 11:52 Dose: 3 ml Alprazolam (Xanax) 0.5 mg PO Q8 PRN PRN Reason: Agitation Stop: 10/19/16 09:49 Last Admin: 10/14/16 12:10 Dose: 0.5 mg Aspirin (Aspirin Chewable) 81 mg PO DAILY [facility] Last Admin: 10/14/16 08:25 Dose: 81 mg Digoxin (Lanoxin) 0.125 mg IVP DAILY [facility] Last Admin: 10/14/16 08:27 Dose: 0.125 mg Famotidine (Pepcid) 40 mg PO HS [facility] Last Admin: 10/13/16 22:00 Dose: 40 mg Folic Acid (Folic Acid) 2 mg PO DAILY [facility] Last Admin: 10/14/16 08:26 Dose: 2 mg Hydroxychloroquine Sulfate (Plaquenil) 400 mg PO DAILY [facility] Last Admin: 10/08/16 08:45 Dose: 400 mg Fluconazole (Diflucan Iv 100 Mg/50 Ml Ns) 50 mls @ 50 mls/hr IVPB DAILY [facility] Last Admin: 10/14/16 08:26 Dose: 50 mls/hr Methylprednisolone 40 mg/ (Sodium Chloride) 50.64 mls @ 100 mls/hr IVPB Q12 [facility] Last Admin: 10/14/16 08:27 Dose: 100 mls/hr Lactic Acid (Lac-Hydrin 12% Cream (140 G)) 1 ea TOP BID [facility] Last Admin: 10/14/16 08:27 Dose: 1 applic Metoprolol Succinate (Toprol Xl) 50 mg PO DAILY [facility] Last Admin: 10/14/16 08:28 Dose: 50 mg Modafinil (Provigil) 200 mg PO DAILY [facility] Last Admin: 10/14/16 08:30 Dose: 200 mg Ondansetron HCl (Zofran Inj) 4 mg IVP Q6 PRN PRN Reason: Nausea/Vomiting - Labs Labs: 10/14/16 06:00 10/14/16 05:30 - Constitutional Appears: In Acute Distress, Chronically Ill, Other (overweight ) - Head Exam Head Exam: ATRAUMATIC, NORMOCEPHALIC - Eye Exam Eye Exam: EOMI, PERRL - ENT Exam ENT Exam: Mucous Membranes Moist, Normal Exam - Neck Exam Neck Exam: Normal Inspection - Respiratory Exam Respiratory Exam: Accessory Muscle Use, Decreased Breath Sounds (bibasilar ), Prolonged Expiratory Phase Additional comments: coarse breath sounds bilaterally - Cardiovascular Exam Cardiovascular Exam: Tachycardia. absent: JVD - GI/Abdominal Exam GI & Abdominal Exam: Soft, Normal Bowel Sounds. absent: Guarding, Tenderness, Rebound - Rectal Exam Rectal Exam: Deferred - Extremities Exam Extremities Exam: Pedal Edema (1 = bilaterally with chronic venous skin changes with erythema ) - Neurological Exam Neurological Exam: Alert, Awake, Oriented x3 - Psychiatric Exam Psychiatric exam: Anxious - Skin Skin Exam: Dry, Warm Additional comments: multiple upper extremity echymotic areas Assessment and Plan - Assessment and Plan (Free Text) Assessment: 66 year old female PMHx Severe COPD, CHF, HTN, HLD, RA, Chronic LE Edema, PVD, MAT, 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 Prior to TCU, she was admitted to the ICU for Acute on Chronic Resp Failure, COPD exacerbation and Pneumonia. Patient is well known to our service from prior admissions. She is a chronic CO2 retainer with PCO2 baseline 80. Readmitted to the ICU, due to CO2 narcosis and was placed on Bipap in the ER with improvement of mental status, started on Duonebs, Solumedrol. Patient has very poor prognosis due to her respiratory status. She has episodes of lethargy due to CO2 narcosis but has been able to respond to BIPAP and high flow O2 ventilation so far ,avoiding intubation . 1. Acute on Chronic Respiratory Failure with Hypoxia and Hypercapnea likely sec to COPD Exacerbation Pt persistently hypercapneic and requires Bipap and high flow O2 Pulmonary , Dr. Yusuf following Continue BIPAP 21/08//40 % at night and high flow during the day Continue Solumedrol , Duonebs, Acetazolamide Tapered Solumedrol 40 mg IV Q12 Patient has very poor prognosis 2. Metastatic squamous cell carcinoma of the lung Patient has been following up in [facility] Recent PET scan showed metastatic disease 3. Altered mental status secondary to CO2 narcosis more awake today Will continue BIPAP 4. Bilateral pneumonia ID consulted - Dr Larsen Received Meropenem, Diflucan and Vanco Sputum c/s: no organism Procalcitonin normal- d/c IV abx 5. Paroxysmal A Fib with RVR and MATs better controlled Cardizem drip was started , now d/c Dr Badillo consulted on Digoxin ASA 81 mg PO daily Continue Metoprolol 100 mg PO daily currently not on anticoagulation Replace K Hold Plaquenil as may exacerbate arrhythmia 6. Chronic CHF (congestive heart failure), Diastolic Dysfunction/Pulm HTN Continue Metoprolol and Lasix 7. HTN (hypertension) BP stable on Metoprolol 8. Hyperlipidemia Atorvastatin 10 mg PO QHS 9. GERD (gastroesophageal reflux disease) Protonix 40 mg 10. Rheumatoid arthritis/Peripheral Neuropathy of Bilateral Feet History Interstitial Lung Disease Methotrexate 15 mg PO every Saturday- will hold for now as discussed with Dr Satish alvarado Folic Acid d/c Plaquenil due to cardiac arrythmias d/c Gabapentin due to lethargy 11. Peripheral Vascular Disease/Chronic Venous Insufficiency With chronic LE edema and venous stasis erythematous toes bilaterally and cool to touch Lac-hydrin lotion to dry skin LE Continue ASA 12. UTI Urine culture positive for Enteroccocus faecalis (09/24/16) repeat urine cx growing yeast Started on Diflucan Pt received Meropenem and Vanco 13. Thrombocytopenia/ anemia prob sec to Infection, meds hold Lovenox for now monitor closely HIT- pending 13. DVT prophylaxis Lovenox on hold
[2016-10-15] MEDS: Albuterol-Ipratrop 3 mg / 0.5 (3 ml) UD INH SCH ×4 (07:58→19:54)
[2016-10-15] MEDS: Digoxin 500 mcg/2ml (0.5 mg/2ml) Inj IVP SCH ×2 (08:25→17:44)
--- NOTE | 2016-10-15 08:25 | CP.PCM.PN ---
Subjective - Date & Time of Evaluation Date of Evaluation: 10/15/16 Time of Evaluation: 08:00 - Subjective Subjective: Easily arousable On a BiPAP machine with FiO2 of 50% Pulse ox 91-92% A Fib at 70-80 BPM BP 124/70 mm Hg No gallop Wheez+, exp prolonged Labs noted (Hb 10.7 gms) K+ normal/ GFR >60ml/min HR controlled with Dig Pt has not been anicoagulated due to hemoptysis Pulm status continues to deteriorate has requested DNR/DNI Hospice has seen pt Pt would benefit from comfort care Objective - Vital Signs/Intake and Output Vital Signs (last 24 hours): Temp Pulse Resp BP Pulse Ox 98.6 F 95 H 31 H 101/66 91 L 10/15/16 08:00 10/15/16 08:00 10/15/16 08:00 10/15/16 08:00 10/15/16 08:00 Intake and Output: 10/15/16 10/15/16 06:59 18:59 Intake Total 140 Output Total 400 Balance -260 - Medications Medications: Current Medications Acetaminophen (Tylenol 325mg Tab) 650 mg PO Q6 PRN PRN Reason: Fever >100.4 F Acetazolamide (Diamox 250 Mg Tab) 500 mg PO TID [facility] Last Admin: 10/14/16 16:09 Dose: 500 mg Albuterol/Ipratropium (Duoneb 3 Mg/0.5 Mg (3 Ml) Ud) 3 ml INH RQID [facility] Last Admin: 10/15/16 07:58 Dose: 3 ml Alprazolam (Xanax) 0.5 mg PO Q8 PRN PRN Reason: Agitation Stop: 10/19/16 09:49 Last Admin: 10/14/16 12:10 Dose: 0.5 mg Aspirin (Aspirin Chewable) 81 mg PO DAILY [facility] Last Admin: 10/14/16 08:25 Dose: 81 mg Digoxin (Lanoxin) 0.125 mg IVP DAILY [facility] Last Admin: 10/14/16 08:27 Dose: 0.125 mg Famotidine (Pepcid) 40 mg PO HS [facility] Last Admin: 10/14/16 22:00 Dose: Not Given Folic Acid (Folic Acid) 2 mg PO DAILY [facility] Last Admin: 10/14/16 08:26 Dose: 2 mg Hydroxychloroquine Sulfate (Plaquenil) 400 mg PO DAILY [facility] Last Admin: 10/08/16 08:45 Dose: 400 mg Fluconazole (Diflucan Iv 100 Mg/50 Ml Ns) 50 mls @ 50 mls/hr IVPB DAILY [facility] Last Admin: 10/14/16 08:26 Dose: 50 mls/hr Methylprednisolone 40 mg/ (Sodium Chloride) 50.64 mls @ 100 mls/hr IVPB Q12 [facility] Last Admin: 10/14/16 21:25 Dose: 100 mls/hr Lactic Acid (Lac-Hydrin 12% Cream (140 G)) 1 ea TOP BID [facility] Last Admin: 10/14/16 16:10 Dose: 1 applic Metoprolol Succinate (Toprol Xl) 50 mg PO DAILY [facility] Last Admin: 10/14/16 08:28 Dose: 50 mg Modafinil (Provigil) 200 mg PO DAILY [facility] Last Admin: 10/14/16 08:30 Dose: 200 mg Ondansetron HCl (Zofran Inj) 4 mg IVP Q6 PRN PRN Reason: Nausea/Vomiting - Labs Labs: 10/14/16 06:00 10/14/16 05:30
--- NOTE | 2016-10-15 08:26 | CP.PCM.PN ---
Subjective - Date & Time of Evaluation Date of Evaluation: 10/15/16 Time of Evaluation: 08:14 - Subjective Subjective: Interim events noted. Has been changed to DNR/DNI status. Presently on mask ventilation, awake and alert. Waiting for breakfast, hungry, receiving aerosol therapy. Improved this morning from late yesterday evening. Breath sounds are present bilaterally. Transmitted rhonchi from NPPV mask. No audible wheezing appreciated. Remains in a fib, V rate better controlled. Dependant edema relatively unchanged. at the bedside. Patient is Hospice appropriate. Maintain DNR/DNI status. Maintenance medications and NPPV to continue. Objective - Vital Signs/Intake and Output Vital Signs (last 24 hours): Temp Pulse Resp BP Pulse Ox 98.6 F 95 H 31 H 101/66 91 L 10/15/16 08:00 10/15/16 08:00 10/15/16 08:00 10/15/16 08:00 10/15/16 08:00 Intake and Output: 10/14/16 10/15/16 23:59 11:59 Intake Total 320 60 Output Total 275 325 Balance 45 -265 - Medications Medications: Current Medications Acetaminophen (Tylenol 325mg Tab) 650 mg PO Q6 PRN PRN Reason: Fever >100.4 F Acetazolamide (Diamox 250 Mg Tab) 500 mg PO TID [facility] Last Admin: 10/14/16 16:09 Dose: 500 mg Albuterol/Ipratropium (Duoneb 3 Mg/0.5 Mg (3 Ml) Ud) 3 ml INH RQID [facility] Last Admin: 10/15/16 07:58 Dose: 3 ml Alprazolam (Xanax) 0.5 mg PO Q8 PRN PRN Reason: Agitation Stop: 10/19/16 09:49 Last Admin: 10/14/16 12:10 Dose: 0.5 mg Aspirin (Aspirin Chewable) 81 mg PO DAILY [facility] Last Admin: 10/14/16 08:25 Dose: 81 mg Digoxin (Lanoxin) 0.125 mg IVP DAILY [facility] Last Admin: 10/14/16 08:27 Dose: 0.125 mg Famotidine (Pepcid) 40 mg PO HS [facility] Last Admin: 10/14/16 22:00 Dose: Not Given Folic Acid (Folic Acid) 2 mg PO DAILY [facility] Last Admin: 10/14/16 08:26 Dose: 2 mg Hydroxychloroquine Sulfate (Plaquenil) 400 mg PO DAILY [facility] Last Admin: 10/08/16 08:45 Dose: 400 mg Fluconazole (Diflucan Iv 100 Mg/50 Ml Ns) 50 mls @ 50 mls/hr IVPB DAILY [facility] Last Admin: 10/14/16 08:26 Dose: 50 mls/hr Methylprednisolone 40 mg/ (Sodium Chloride) 50.64 mls @ 100 mls/hr IVPB Q12 [facility] Last Admin: 10/14/16 21:25 Dose: 100 mls/hr Lactic Acid (Lac-Hydrin 12% Cream (140 G)) 1 ea TOP BID [facility] Last Admin: 10/14/16 16:10 Dose: 1 applic Metoprolol Succinate (Toprol Xl) 50 mg PO DAILY [facility] Last Admin: 10/14/16 08:28 Dose: 50 mg Modafinil (Provigil) 200 mg PO DAILY [facility] Last Admin: 10/14/16 08:30 Dose: 200 mg Ondansetron HCl (Zofran Inj) 4 mg IVP Q6 PRN PRN Reason: Nausea/Vomiting - Labs Labs: 10/14/16 06:00 10/14/16 05:30 Assessment and Plan (1) Pulmonary infiltrates on CXR Status: Acute (2) Acute on chronic respiratory failure with hypoxia and hypercapnia Status: Acute (3) Atrial fibrillation Status: Chronic (4) 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
[2016-10-15] MEDS: methylPREDNISolone 40 MG in Sodium Chloride 0.9% 50 ML IVPB SCH ×2 (08:27→20:42)
[2016-10-15] MEDS: Metoprolol Succinate 50 mg XL Tab PO SCH (08:30)
[2016-10-15] MEDS: Fluconazole IV 100mg/50 ml NS 50 ML IVPB SCH (09:05)
[2016-10-15] MEDS: Ammonium Lactate 12% Cream (140 g) TOP SCH ×2 (11:43→16:04)
--- NOTE | 2016-10-15 13:26 | CP.PCM.PN ---
Subjective - Date & Time of Evaluation Date of Evaluation: 10/15/16 Time of Evaluation: 08:00 - Subjective Subjective: Patient seen and examined bedside. Chronically ill female , overweight , lying in bed in mild respiratory distress on BIPAP IPAP 20 RR 24 EPAP 6 FIO2 50 % saturating 92 % . With accessory muscle use and prolonged expiratory phase.Tachycardic , afebrile, BP stable No acute issues overnight DNR / DNI a per Hospice consulted Objective - Vital Signs/Intake and Output Vital Signs (last 24 hours): Temp Pulse Resp BP Pulse Ox 98.2 F 91 H 16 127/81 96 10/15/16 12:00 10/15/16 12:00 10/15/16 12:00 10/15/16 12:00 10/15/16 12:00 Intake and Output: 10/15/16 10/15/16 06:59 18:59 Intake Total 140 390 Output Total 400 Balance -260 390 - Medications Medications: Current Medications Acetaminophen (Tylenol 325mg Tab) 650 mg PO Q6 PRN PRN Reason: Fever >100.4 F Acetazolamide (Diamox 250 Mg Tab) 500 mg PO TID [facility] Last Admin: 10/15/16 12:09 Dose: 500 mg Albuterol/Ipratropium (Duoneb 3 Mg/0.5 Mg (3 Ml) Ud) 3 ml INH RQID [facility] Last Admin: 10/15/16 11:31 Dose: 3 ml Aspirin (Aspirin Chewable) 81 mg PO DAILY [facility] Last Admin: 10/15/16 08:30 Dose: 81 mg Digoxin (Lanoxin) 0.125 mg IVP DAILY [facility] Last Admin: 10/15/16 08:25 Dose: 0.125 mg Famotidine (Pepcid) 40 mg PO HS [facility] Last Admin: 10/14/16 22:00 Dose: Not Given Folic Acid (Folic Acid) 2 mg PO DAILY [facility] Last Admin: 10/15/16 08:29 Dose: 2 mg Hydroxychloroquine Sulfate (Plaquenil) 400 mg PO DAILY [facility] Last Admin: 10/08/16 08:45 Dose: 400 mg Fluconazole (Diflucan Iv 100 Mg/50 Ml Ns) 50 mls @ 50 mls/hr IVPB DAILY [facility] Last Admin: 10/15/16 09:05 Dose: 50 mls/hr Methylprednisolone 40 mg/ (Sodium Chloride) 50.64 mls @ 100 mls/hr IVPB Q12 [facility] Last Admin: 10/15/16 08:27 Dose: 100 mls/hr Lactic Acid (Lac-Hydrin 12% Cream (140 G)) 1 ea TOP BID [facility] Last Admin: 10/15/16 11:43 Dose: 1 applic Metoprolol Succinate (Toprol Xl) 50 mg PO DAILY [facility] Last Admin: 10/15/16 08:30 Dose: 50 mg Modafinil (Provigil) 200 mg PO DAILY [facility] Last Admin: 10/15/16 12:09 Dose: 200 mg Morphine Sulfate (Morphine) 1 mg IVP Q4 PRN PRN Reason: Anxiety Ondansetron HCl (Zofran Inj) 4 mg IVP Q6 PRN PRN Reason: Nausea/Vomiting - Labs Labs: 10/14/16 06:00 10/14/16 05:30 - Constitutional Appears: Other (on BIPAP , mild respiratory distress, chronically ill ) - Head Exam Head Exam: NORMOCEPHALIC - Eye Exam Eye Exam: EOMI, PERRL - ENT Exam ENT Exam: Mucous Membranes Moist, Normal Exam - Neck Exam Neck Exam: Normal Inspection - Respiratory Exam Respiratory Exam: Accessory Muscle Use, Decreased Breath Sounds (bibasilar ), Prolonged Expiratory Phase, Rhonchi, Respiratory Distress. absent: Wheezes - Cardiovascular Exam Cardiovascular Exam: Tachycardia. absent: JVD - GI/Abdominal Exam GI & Abdominal Exam: Soft, Normal Bowel Sounds. absent: Distended, Guarding, Tenderness, Rebound - Rectal Exam Rectal Exam: Deferred - Extremities Exam Extremities Exam: Full ROM, Normal Inspection, Pedal Edema (1 + with chronic venuos stasis skimn changes with erythema bilaterally ) - Neurological Exam Neurological Exam: Alert, Awake, Oriented x3 - Psychiatric Exam Psychiatric exam: Flat Affect - Skin Skin Exam: Dry, Pallor, Warm Additional comments: multiple echymotic lesions to upper extremities Assessment and Plan - Assessment and Plan (Free Text) Assessment: 66 year old female PMHx Severe COPD, CHF, HTN, HLD, RA, Chronic LE Edema, PVD, MAT, 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 Prior to TCU, she was admitted to the ICU for Acute on Chronic Resp Failure, COPD exacerbation and Pneumonia. Patient is well known to our service from prior admissions. She is a chronic CO2 retainer with PCO2 baseline 80. Readmitted to the ICU, due to CO2 narcosis and was placed on Bipap in the ER with improvement of mental status, started on Duonebs, Solumedrol. Patient has very poor prognosis due to her respiratory status. She has episodes of lethargy due to CO2 narcosis on BIPAP and high flow O2 ventilation with high FIO2 requirements. Co0de status changed to DNR/DNI as per patient's ands husbands wishes Hospiceconsulted 1. Acute on Chronic Respiratory Failure with Hypoxia and Hypercapnea likely sec to COPD Exacerbation Pt persistently hypercapneic and requires Bipap and high flow O2 Pulmonary , Dr. Yusuf following Continue BIPAP 20/6/24/40 % at night and high flow during the day Continue Solumedrol , Duonebs, Acetazolamide Tapered Solumedrol 40 mg IV Q12 Patient has very poor prognosis DNR / DNI status Hospice consulted 2. Metastatic squamous cell carcinoma of the lung Patient has been following up in [facility] Recent PET scan showed metastatic disease 3. Altered mental status secondary to CO2 narcosis continue BIPAP and high flow O2 4. Bilateral pneumonia ID consulted - Dr Larsen Received Meropenem, Diflucan and Vanco Sputum c/s: no organism Procalcitonin normal all antibiotics discontinued 5. Paroxysmal A Fib with RVR and MATs better controlled Cardizem drip was started , now d/c Dr Badillo consulted on Digoxin ASA 81 mg PO daily Continue Metoprolol 100 mg PO daily currently not on anticoagulation Replace K Hold Plaquenil as may exacerbate arrhythmia 6. Chronic CHF (congestive heart failure), Diastolic Dysfunction/Pulm HTN Continue Metoprolol and Lasix 7. HTN (hypertension) BP stable on Metoprolol 8. Hyperlipidemia Atorvastatin 10 mg PO QHS 9. GERD (gastroesophageal reflux disease) Protonix 40 mg 10. Rheumatoid arthritis/Peripheral Neuropathy of Bilateral Feet History Interstitial Lung Disease Methotrexate 15 mg PO every Saturday- will hold for now as discussed with Dr Satish alvarado Folic Acid d/c Plaquenil due to cardiac arrythmias d/c Gabapentin due to lethargy 11. Peripheral Vascular Disease/Chronic Venous Insufficiency With chronic LE edema and venous stasis erythematous toes bilaterally and cool to touch Lac-hydrin lotion to dry skin LE Continue ASA 12. UTI Urine culture positive for Enteroccocus faecalis (09/24/16) repeat urine cx growing yeast Started on Diflucan Pt received Meropenem and Vanco 13. Thrombocytopenia/ anemia prob sec to Infection, meds hold Lovenox for now monitor closely HIT- pending 13. DVT prophylaxis Lovenox on hold
--- NOTE | 2016-10-15 15:16 | PN ---
CRITICAL CARE PROGRESS NOTE DATE: 10/15/2016 LOCATION: Patient in ICU, bed 425. TIME SPENT: 35 minutes. SUBJECTIVE: The patient is seen and examined at the bedside. Case was discussed in a.m. rounds. A 66-year-old female, reformed smoker, chronic obstructive pulmonary disease, metastatic squamous cell carcinoma of left lung, proximal atrial fibrillation, admitted with acute respiratory failure, requiring BiPAP at night and high flow nasal oxygen in the morning. Currently DNI/DNR status at the request of the patient's family. Overnight telemetry atrial fibrillation rate controlled, normotensive, afebrile; reportedly slept well throughout the night. This morning, alert, awake, off BiPAP; on high flow nasal oxygen saturating 96%. Denies shortness of breath at rest; able to tolerate minimum amount of breakfast fed by the patient's . No sign of aspiration. No chest pain, palpitation. No abdominal discomfort. PHYSICAL EXAMINATION: VITAL SIGNS: Temperature 98.2, heart rate 90 to 96. NECK: Supple. Trachea is central. CHEST: Bilateral breath sounds. Scattered rhonchi. HEART: Rhythm irregular. No audible murmur. ABDOMEN: Bowel sounds present, soft. EXTREMITIES: Dependant edema. Peripheral pulses are intact, symmetrical. NEUROLOGIC: Alert, oriented to name, place, time. No motor deficit. No cranial nerve deficit. LABORATORY DATA: WBC 12.8, hemoglobin 10.7, hematocrit 35.2, platelet count 98. SMA-7 sodium 143, potassium 4.5, chloride 98, CO2 of 43, blood urea nitrogen 35, creatinine 0.5, vancomycin trough level 18.5. CURRENT MEDICATIONS: Tylenol 650 q. 6 p.r.n., Diamox 500 mg p.o. three times daily, albuterol/atrovent inhalation 3 mL q.i.d., Xanax 0.5 mg q. 8 p.r.n., aspirin 81 mg daily, Lanoxin 0.125 mg IV daily, Pepcid 40 mg at bedtime, fluconazole 500 mg daily, folic acid 2 mg daily, lac-hydrin 12% cream one each topically twice daily, Solu-Medrol 40 mg IV q. 12, Toprol 50 mg daily, Provigil 200 mg p.o. daily, Zofran 4 mg IV q. 6 p.r.n. IMPRESSION: 1. Neuro: Encephalopathy secondary to hypercarbia, improved on BiPAP, tolerating well. 2. Pulmonary: Acute on chronic respiratory failure secondary to chronic obstructive pulmonary disease exacerbation. 3. Bilateral pneumonia. Currently on fluconazole and Solu-Medrol 40 mg IV q. 12; bronchodilator q.6 hours p.r.n. 4. Metastatic lung carcinoma; being followed at further intervention planned at this time. 5. Anemia of choric disease, stable. 6. Renal function remains stable. 7. History of rheumatoid arthritis, off Plaquenil secondary to cardiac arrhythmia. 8. History of atrial fibrillation, rate controlled, not on anticoagulation secondary to recent hemoptysis. PLAN: DNR/DNI, hospice care evaluation. Continue comfort care with current medications. Pedro Cifuentes MD
[2016-10-16 00:59] LABS: RESULT Negative (Negative)
[2016-10-16 05:15] LABS: HEMATOCRIT 34.7 % (34.0-47.0); MEAN CELL VOLUME 108.2 fl (81.0-99.0); MEAN CORPUSCULAR HEMOGLOBIN 32.8 pg (27.0-31.0); MEAN CORPUSCULAR HGB CONC 30.3 g/dL (33.0-37.0); RED CELL DISTRIBUTION WIDTH 16.5 % (11.5-14.5); WHITE BLOOD COUNT 16.9 K/uL (4.8-10.8)
[2016-10-16 05:23] LABS: BLOOD UREA NITROGEN 45 mg/dl (7-17); CALCIUM 9.5 mg/dL (8.4-10.2); CHLORIDE 99 mmol/L (98-107); GFR AFRICAN-AMERICAN > 60; GLUCOSE,RANDOM 226 mg/dL (65-105); POTASSIUM 4.7 MMOL/L (3.6-5.0); SODIUM 143 mmol/l (132-148)
[2016-10-16 05:35] LABS: CARBON DIOXIDE 41 mmol/L (22-30)
[2016-10-16 08:20] LABS: UFH SRA RESULT Negative (Negative)
[2016-10-16] MEDS: Fluconazole IV 100mg/50 ml NS 50 ML IVPB SCH (08:40)
[2016-10-16] MEDS: Ammonium Lactate 12% Cream (140 g) TOP SCH ×2 (08:41→16:58)
--- NOTE | 2016-10-16 08:42 | CP.PCM.PN ---
Subjective - Date & Time of Evaluation Date of Evaluation: 10/16/16 Time of Evaluation: 08:42 - Subjective Subjective: pt tolerating bipap well, saturating about 91-94 at rest, pt sat drops as she begins to try and self adjust bipap mask, high flow today as well. family still undecided regarding hospice. Pt does complain of some abdominal pain, morphine given, however abd exam benign. UA ordered by Dr. Yusuf, discussed, will follow up. no other complaints overnight Objective - Vital Signs/Intake and Output Vital Signs (last 24 hours): Temp Pulse Resp BP Pulse Ox 99.2 F 72 25 H 135/55 L 94 L 10/16/16 08:00 10/16/16 08:00 10/16/16 08:34 10/16/16 08:00 10/16/16 08:00 Vitals reviewed Constitutional- cooperative, awake, alert. Head- NCAT, PERRL Eye- PERRL, normal accommodation ENT- normal exam, MMM. Neck- normal inspection, supple, no JVD Respiratory- decreased BS, no wheezes rales rhonchi Cardiovascular- RRR, +S1, +S2 no MRG GI/Abdominal- normal bowel sounds, soft Extremities Exam- normal capillary refill, normal inspection Neurological Exam- alert, oriented Psych - normal mood, normal affect Intake and Output: 10/16/16 10/16/16 06:59 18:59 Intake Total 687 Output Total 300 Balance 387 - Medications Medications: Current Medications Acetaminophen (Tylenol 325mg Tab) 650 mg PO Q6 PRN PRN Reason: Fever >100.4 F Acetazolamide (Diamox 250 Mg Tab) 500 mg PO TID [facility] Last Admin: 10/15/16 17:19 Dose: 500 mg Albuterol/Ipratropium (Duoneb 3 Mg/0.5 Mg (3 Ml) Ud) 3 ml INH RQID [facility] Last Admin: 10/15/16 19:54 Dose: 3 ml Aspirin (Aspirin Chewable) 81 mg PO DAILY [facility] Last Admin: 10/15/16 08:30 Dose: 81 mg Digoxin (Lanoxin) 0.125 mg IVP DAILY [facility] Last Admin: 10/15/16 08:25 Dose: 0.125 mg Digoxin (Lanoxin) 0.125 mg IVP DAILY [facility] Last Admin: 10/15/16 17:44 Dose: 0.125 mg Diltiazem HCl (Cardizem) 30 mg PO QID [facility] Last Admin: 10/15/16 21:00 Dose: 30 mg Famotidine (Pepcid) 40 mg PO HS [facility] Last Admin: 10/15/16 21:00 Dose: 40 mg Folic Acid (Folic Acid) 2 mg PO DAILY [facility] Last Admin: 10/15/16 08:29 Dose: 2 mg Hydroxychloroquine Sulfate (Plaquenil) 400 mg PO DAILY [facility] Last Admin: 10/08/16 08:45 Dose: 400 mg Fluconazole (Diflucan Iv 100 Mg/50 Ml Ns) 50 mls @ 50 mls/hr IVPB DAILY [facility] Last Admin: 10/15/16 09:05 Dose: 50 mls/hr Methylprednisolone 40 mg/ (Sodium Chloride) 50.64 mls @ 100 mls/hr IVPB Q12 [facility] Stop: 10/16/16 10:00 Last Admin: 10/15/16 20:42 Dose: 100 mls/hr Methylprednisolone 30 mg/ (Sodium Chloride) 50.48 mls @ 100 mls/hr IVPB Q12 [facility] Lactic Acid (Lac-Hydrin 12% Cream (140 G)) 1 ea TOP BID [facility] Last Admin: 10/15/16 16:04 Dose: 1 applic Modafinil (Provigil) 200 mg PO DAILY [facility] Last Admin: 10/15/16 12:09 Dose: 200 mg Morphine Sulfate (Morphine) 1 mg IVP Q4 PRN PRN Reason: Anxiety Last Admin: 10/16/16 08:01 Dose: 1 mg Ondansetron HCl (Zofran Inj) 4 mg IVP Q6 PRN PRN Reason: Nausea/Vomiting - Labs Labs: 10/16/16 04:20 10/16/16 04:20 Assessment and Plan - Assessment and Plan (Free Text) Plan: 66 year old female PMHx Severe COPD, CHF, HTN, HLD, RA, Chronic LE Edema, PVD, MAT, 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 Prior to TCU, she was admitted to the ICU for Acute on Chronic Resp Failure, COPD exacerbation and Pneumonia. Patient is well known to our service from prior admissions. She is a chronic CO2 retainer with PCO2 baseline 80. Readmitted to the ICU, due to CO2 narcosis and was placed on Bipap in the ER with improvement of mental status, started on Duonebs, Solumedrol. Patient has very poor prognosis due to her respiratory status. She has episodes of lethargy due to CO2 narcosis on BIPAP and high flow O2 ventilation with high FIO2 requirements. Code status changed to DNR/DNI as per patient's ands husbands wishes Hospice consulted; patient family continues to be undecided. Discussed with Dr. Yusuf 1. Acute on Chronic Respiratory Failure with Hypoxia and Hypercapnea likely sec to COPD Exacerbation Pt persistently hypercapneic and requires Bipap and high flow O2 Pulmonary, Dr. Yusuf following Continue settings BIPAP 20/6/24/40 % at night and high flow during the day Continue Solumedrol , Duonebs, Acetazolamide Tapered Solumedrol 40 mg IV Q12 Patient has very poor prognosis DNR / DNI status Hospice consulted, patient family still undecided 2. Metastatic squamous cell carcinoma of the lung Patient has been following up in [facility] Recent PET scan showed metastatic disease 3. Altered mental status secondary to CO2 narcosis continue BIPAP and high flow O2 4. Bilateral pneumonia ID consulted - Dr Larsen Received Meropenem, Diflucan and Vanco Sputum c/s: no organism Procalcitonin normal all antibiotics discontinued 5. Paroxysmal A Fib with RVR and MATs better controlled Cardizem drip was started , now d/c Dr Badillo consulted on Digoxin ASA 81 mg PO daily Continue Metoprolol 100 mg PO daily currently not on anticoagulation Replace K Hold Plaquenil as may exacerbate arrhythmia 6. Chronic CHF (congestive heart failure), Diastolic Dysfunction/Pulm HTN Continue Metoprolol and Lasix 7. HTN (hypertension) BP stable on Metoprolol 8. Hyperlipidemia Atorvastatin 10 mg PO QHS 9. GERD (gastroesophageal reflux disease) Protonix 40 mg 10. Rheumatoid arthritis/Peripheral Neuropathy of Bilateral Feet History Interstitial Lung Disease Methotrexate 15 mg PO every Saturday- will hold for now as discussed with Dr Satish alvarado Folic Acid d/c Plaquenil due to cardiac arrythmias d/c Gabapentin due to lethargy 11. Peripheral Vascular Disease/Chronic Venous Insufficiency With chronic LE edema and venous stasis erythematous toes bilaterally and cool to touch Lac-hydrin lotion to dry skin LE Continue ASA 12. UTI Urine culture positive for Enteroccocus faecalis (09/24/16) repeat urine cx growing yeast Started on Diflucan Pt received Meropenem and Vanco 13. Thrombocytopenia/ anemia prob sec to Infection, meds hold Lovenox for now monitor closely HIT- pending 14. Abdominal Pain poss UTI abd exam unremarkable CMP tomorrow 15. Leukocytosis Trending up, on solumedrol, but trending up checking for UTI will monitor and follow up afebrile 16. DVT prophylaxis Lovenox on hold
[2016-10-16] MEDS: Digoxin 500 mcg/2ml (0.5 mg/2ml) Inj IVP SCH ×2 (08:44→09:35)
--- NOTE | 2016-10-16 08:45 | CP.PCM.PN ---
Subjective - Date & Time of Evaluation Date of Evaluation: 10/16/16 Time of Evaluation: 08:35 - Subjective Subjective: Interim events reviewed. Patient's family still unsure of Hospice. She continues to use BiPAP and HFNC interchangeably as needed. Still has tachypnea, but SpO2 remains >90% for the most part. Leukocytosis is increasing now and she does have complaint of lower abdominal discomfort today. Will recheck urine for possible recurrent infection. Has been started on low dose prn morphine w/o ill effect. Breath sounds are present bilaterally with a short I phase. Rhonchi are present bilaterally w/o audible wheezing. Dry rales are present in both lungs as well. No dullness to percussion anteriorly and no subcut emphysema. Dependant edema remains ++ w/o cyanosis. She is awake and cooperative with exam able to follow commands. Chronic respiratory failure, O2 and NPPV dependant. Poor QOL with little hope of further improvement. Would be NPPV/O2 bound going forward. Check for recurrent UTI. Continue PRN morphine (still low dose). Remains on modest dose steroids; Plaquenil and MTX have been discontinued. Objective - Vital Signs/Intake and Output Vital Signs (last 24 hours): Temp Pulse Resp BP Pulse Ox 98.8 F 78 40 H 165/77 H 95 10/16/16 04:00 10/16/16 06:22 10/16/16 06:00 10/16/16 06:00 10/16/16 06:00 Intake and Output: 10/15/16 10/16/16 23:59 11:59 Intake Total 605 567 Output Total 550 200 Balance 55 367 - Medications Medications: Current Medications Acetaminophen (Tylenol 325mg Tab) 650 mg PO Q6 PRN PRN Reason: Fever >100.4 F Acetazolamide (Diamox 250 Mg Tab) 500 mg PO TID [facility] Last Admin: 10/15/16 17:19 Dose: 500 mg Albuterol/Ipratropium (Duoneb 3 Mg/0.5 Mg (3 Ml) Ud) 3 ml INH RQID [facility] Last Admin: 10/15/16 19:54 Dose: 3 ml Aspirin (Aspirin Chewable) 81 mg PO DAILY [facility] Last Admin: 10/15/16 08:30 Dose: 81 mg Digoxin (Lanoxin) 0.125 mg IVP DAILY [facility] Last Admin: 10/15/16 08:25 Dose: 0.125 mg Digoxin (Lanoxin) 0.125 mg IVP DAILY [facility] Last Admin: 10/15/16 17:44 Dose: 0.125 mg Diltiazem HCl (Cardizem) 30 mg PO QID [facility] Last Admin: 10/15/16 21:00 Dose: 30 mg Famotidine (Pepcid) 40 mg PO HS [facility] Last Admin: 10/15/16 21:00 Dose: 40 mg Folic Acid (Folic Acid) 2 mg PO DAILY [facility] Last Admin: 10/15/16 08:29 Dose: 2 mg Hydroxychloroquine Sulfate (Plaquenil) 400 mg PO DAILY [facility] Last Admin: 10/08/16 08:45 Dose: 400 mg Fluconazole (Diflucan Iv 100 Mg/50 Ml Ns) 50 mls @ 50 mls/hr IVPB DAILY [facility] Last Admin: 10/15/16 09:05 Dose: 50 mls/hr Methylprednisolone 40 mg/ (Sodium Chloride) 50.64 mls @ 100 mls/hr IVPB Q12 [facility] Stop: 10/16/16 10:00 Last Admin: 10/15/16 20:42 Dose: 100 mls/hr Methylprednisolone 30 mg/ (Sodium Chloride) 50.48 mls @ 100 mls/hr IVPB Q12 [facility] Lactic Acid (Lac-Hydrin 12% Cream (140 G)) 1 ea TOP BID [facility] Last Admin: 10/15/16 16:04 Dose: 1 applic Modafinil (Provigil) 200 mg PO DAILY [facility] Last Admin: 10/15/16 12:09 Dose: 200 mg Morphine Sulfate (Morphine) 1 mg IVP Q4 PRN PRN Reason: Anxiety Last Admin: 10/16/16 08:01 Dose: 1 mg Ondansetron HCl (Zofran Inj) 4 mg IVP Q6 PRN PRN Reason: Nausea/Vomiting - Labs Labs: 10/16/16 04:20 10/16/16 04:20 Assessment and Plan (1) Pulmonary infiltrates on CXR Status: Acute (2) Acute on chronic respiratory failure with hypoxia and hypercapnia Status: Acute (3) Atrial fibrillation Status: Chronic (4) 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
[2016-10-16] MEDS: Albuterol-Ipratrop 3 mg / 0.5 (3 ml) UD INH SCH ×4 (09:26→19:45)
[2016-10-16] MEDS: methylPREDNISolone 40 MG in Sodium Chloride 0.9% 50 ML IVPB SCH (09:45)
--- NOTE | 2016-10-16 10:53 | CP.CCUPN ---
CCU Subjective - Physician Review Subjective (Free Text): The patient was Seen and examined by me at the bedside, Medical records reviewed and Management issues were discussed and formulated with the house staff. Clinically improving, more awake and responsive, Follows simple commands. Continued on BIPAP machine with settings maintained 20/6 Rate 24 40% O2 alternating with HFNC. Afebrile, 10/12 Antibiotics was discontinued after discussion with PMD and ID, Procalcitonin level normal Started on Diflucan IV 100 Mg IVPB DAILY for UTI with urine C/S growing yeast Complains of Abd pain, controlled with IV Morphine PRN No CP, less dyspneic Stable Respiratory status, Saturating 92-95% and unlabored breathing but SOB on minimal exertion. Tolerating PO diet. HR better controlled on digoxin and metoprolol Started on low dose Xanax 0.25mg Q8H PRN and helping Labs showing decreasing Bicarb level to 41, leukocytosis of 9.7-->12.8-->16.9 , Stable renal function and K of 4.7 Patient is DNR/DNI and family still undecided regarding Hospice care. CCU Objective - Vital Signs / Intake & Output Vital Signs (Last 4 hours): Vital Signs Temp Pulse Resp BP Pulse Ox 10/16/16 10:00 70 26 H 120/55 L 92 L 10/16/16 08:39 77 135/55 L 10/16/16 08:34 25 H 10/16/16 08:00 99.2 F 72 25 H 135/55 L 94 L Intake and Output (Last 8hrs): Intake & Output 10/15/16 10/16/16 10/16/16 22:59 06:59 14:59 Intake Total 365 567 300 Output Total 550 200 Balance -185 367 300 Intake: IV 70 60 200 Intake, Piggyback 5 Oral 290 507 100 Output: Urine 550 200 Urethral (Cary) 550 200 Stool 0 Other: # Bowel Movements 1 1 - Physical Exam Physical Exam Limitations: Positive for: Clinical Condition Head: Positive for: Normocephalic Pupils: Positive for: PERRL Extroacular Muscles: Positive for: EOMI Conjunctiva: Positive for: Normal. Negative for: Icteric Mouth: Positive for: Moist Mucous Membranes. Negative for: Drooling Pharnyx: Positive for: Normal. Negative for: ERYTHEMA, EXUDATE Neck: Positive for: Normal Range of Motion, Trachea Midline Respiratory/Chest: Positive for: Decreased Breath Sounds, Rales (Dry rales), Rhonchi. Negative for: Accessory Muscle Use, Wheezes Cardiovascular: Positive for: Regular Rate and Rhythm, Normal S1, S2. Negative for: Murmurs, Rub Abdomen: Positive for: Normal Bowel Sounds. Negative for: Tenderness, Distention Upper Extremity: Positive for: Edema, Other (RUE PICC, site clean, intact/patent ) Lower Extremity: Positive for: Edema, Capillary Refill < 2 s, Other (Bilateral feet cool to touch with all toes discolored (red-purplish in color). ). Negative for: CALF TENDERNESS, Cyanosis Neurological: Positive for: GCS=15, CN II-XII Intact, Motor Func Grossly Intact. Negative for: Speech Normal Skin: Positive for: Warm, Other (scattered areas of ecchymoses over both upper arms). Negative for: Rashes - Medications Active Medications: Active Medications Generic Name Dose Route Start Last Admin Trade Name Freq PRN Reason Stop Dose Admin Acetaminophen 650 mg 10/05/16 16:41 Tylenol 325mg Tab PO Q6 PRN Fever >100.4 F Acetazolamide 500 mg 10/11/16 13:00 10/16/16 08:40 Diamox 250 Mg Tab PO 500 mg TID [facility] Administration Albuterol/Ipratropium 3 ml 10/05/16 20:00 10/16/16 09:26 Duoneb 3 Mg/0.5 Mg (3 Ml) Ud INH 3 ml RQID [facility] Administration Aspirin 81 mg 10/06/16 09:00 10/16/16 08:39 Aspirin Chewable PO 81 mg DAILY [facility] Administration Digoxin 0.125 mg 10/13/16 09:00 10/16/16 08:44 Lanoxin IVP 0.125 mg DAILY [facility] Administration Digoxin 0.125 mg 10/15/16 16:45 10/16/16 09:35 Lanoxin IVP Not Given DAILY [facility] Diltiazem HCl 30 mg 10/15/16 22:00 10/16/16 08:39 Cardizem PO 30 mg QID [facility] Administration Famotidine 40 mg 10/05/16 22:00 10/15/16 21:00 Pepcid PO 40 mg HS [facility] Administration Folic Acid 2 mg 10/06/16 09:00 10/16/16 08:41 Folic Acid PO 2 mg DAILY [facility] Administration Hydroxychloroquine Sulfate 400 mg 10/06/16 09:00 10/08/16 08:45 Plaquenil PO 400 mg DAILY [facility] Administration Fluconazole 50 mls @ 50 mls/hr 10/08/16 09:00 10/16/16 08:40 Diflucan Iv 100 Mg/50 Ml Ns IVPB 50 mls/hr DAILY [facility] Administration Methylprednisolone 30 mg/ 50.48 mls @ 100 mls/hr 10/16/16 21:00 Sodium Chloride IVPB Q12 [facility] Lactic Acid 1 ea 10/12/16 13:48 10/16/16 08:41 Lac-Hydrin 12% Cream (140 G) TOP 1 applic BID [facility] Administration Modafinil 200 mg 10/06/16 09:00 10/16/16 08:47 Provigil PO 200 mg DAILY [facility] Administration Morphine Sulfate 1 mg 10/15/16 11:29 10/16/16 08:01 Morphine IVP 1 mg Q4 PRN Administration Anxiety Ondansetron HCl 4 mg 10/05/16 16:40 Zofran Inj IVP Q6 PRN Nausea/Vomiting - Patient Studies Lab Studies: Lab Studies 10/16/16 10/16/16 10/15/16 Range/Units 04:20 04:20 17:10 WBC 16.9 H (4.8-10.8) K/uL RBC 3.21 L (3.80-5.20) Mil/uL Hgb 10.5 L (12.0-16.0) g/dL Hct 34.7 (34.0-47.0) % MCV 108.2 H (81.0-99.0) fl MCH 32.8 H (27.0-31.0) pg MCHC 30.3 L (33.0-37.0) g/dL RDW 16.5 H (11.5-14.5) % Plt Count 105 L (130-400) K/uL Hep-[facility] Thrombocytopen (Negative) Sodium 143 (132-148) mmol/l Potassium 4.7 (3.6-5.0) MMOL/L Chloride 99 (98-107) mmol/L Carbon Dioxide 41 H* (22-30) mmol/L Anion Gap 8 L (10-20) BUN 45 H (7-17) mg/dl Creatinine 1.0 (0.7-1.2) mg/dL Est GFR ( Amer) > 60 Est GFR (Non-Af Amer) 55 Random Glucose 226 H (65-105) mg/dL Calcium 9.5 (8.4-10.2) mg/dL Digoxin 2.0 (0.8-2.0) ng/mL SADE UFH Low Dose 0.1 % Release SADE UFH Low Dose 0.5 % Release SADE UFH High Dose 100 % Release 10/12/16 Range/Units 09:15 WBC (4.8-10.8) K/uL RBC (3.80-5.20) Mil/uL Hgb (12.0-16.0) g/dL Hct (34.0-47.0) % MCV (81.0-99.0) fl MCH (27.0-31.0) pg MCHC (33.0-37.0) g/dL RDW (11.5-14.5) % Plt Count (130-400) K/uL Hep-[facility] Thrombocytopen Negative (Negative) Sodium (132-148) mmol/l Potassium (3.6-5.0) MMOL/L Chloride (98-107) mmol/L Carbon Dioxide (22-30) mmol/L Anion Gap (10-20) BUN (7-17) mg/dl Creatinine (0.7-1.2) mg/dL Est GFR ( Amer) Est GFR (Non-Af Amer) Random Glucose (65-105) mg/dL Calcium (8.4-10.2) mg/dL Digoxin (0.8-2.0) ng/mL SADE UFH Low Dose 0.1 0 % Release SADE UFH Low Dose 0.5 0 % Release SADE UFH High Dose 100 0 % Release Laboratory Results - last 24 hr 10/12/16 10/15/16 10/16/16 09:15 17:10 04:20 WBC RBC Hgb Hct MCV MCH MCHC RDW Plt Count Hep-[facility] Thrombocytopen Negative Sodium 143 Potassium 4.7 Chloride 99 Carbon Dioxide 41 H* Anion Gap 8 L BUN 45 H Creatinine 1.0 Est GFR ( Amer) > 60 Est GFR (Non-Af Amer) 55 Random Glucose 226 H Calcium 9.5 Digoxin 2.0 SADE UFH Low Dose 0.1 0 SADE UFH Low Dose 0.5 0 SADE UFH High Dose 100 0 10/16/16 04:20 WBC 16.9 H RBC 3.21 L Hgb 10.5 L Hct 34.7 MCV 108.2 H MCH 32.8 H MCHC 30.3 L RDW 16.5 H Plt Count 105 L Hep-[facility] Thrombocytopen Sodium Potassium Chloride Carbon Dioxide Anion Gap BUN Creatinine Est GFR ( Amer) Est GFR (Non-Af Amer) Random Glucose Calcium Digoxin SADE UFH Low Dose 0.1 SADE UFH Low Dose 0.5 SADE UFH High Dose 100 Fingerstick Blood Sugar Results: 264 Critical Care Progress Note - Nutrition Nutrition: Nutrition Category Date Time Status Regular Diet [DIET] Diets 10/05/16 Dinner Active Assessment/Plan (1) Acute on chronic respiratory failure with hypoxia and hypercapnia Current Visit: Yes Status: Acute Comment: Improved Respiratory status and unlabored breathing but SOB on minimal exertion. ALBUTEROL/Atrovent Nebs q6h PRN Wean off IV Solumedrol, dose down to 40 mg IV Q12 Pulmonary evaluation appretiated Aggressive pulmonary toilet, chest PT, suctioning Continued on BIPAP machine with settings maintained 20/6 Rate 24 40% O2 alternating with HFNC. Keep SaO2 >92% Acetazolamide (2) COPD (chronic obstructive pulmonary disease) Current Visit: No Status: Chronic Priority: High Comment: As per Resp failure Methylprednisolone 40 mg IVPB Q12 [facility] (3) Metabolic encephalopathy Current Visit: Yes Status: Acute Comment: Improved mental status On Provigil 200 mg PO DAILY (4) Atrial fibrillation Current Visit: No Status: Chronic Priority: High Comment: HR better controlled on digoxin and metoprolol 100 mg PO daily Off Cardizem drip ASA 81 mg PO daily (5) Bronchogenic carcinoma of left lung Current Visit: No Status: Chronic Priority: High Comment: Stage 4 with ecent PET scan showing metastatic disease Pain controlled (6) Pulmonary hypertension Current Visit: No Status: Chronic Priority: High Comment: Due to underlying lung disease, supplemental oxygen. (7) UTI (urinary tract infection) due to Enterococcus Current Visit: No Status: Acute Comment: 10/12 Antibiotics was discontinued after discussion with PMD and ID, Procalcitonin level normal Started on Diflucan IV 100 Mg IVPB DAILY for UTI with urine C/S growing yeast (8) Prophylactic measure Current Visit: No Status: Acute Comment: Pepcid 40 mg PO DAILY ASA 81 mg PO daily Traci hwang
[2016-10-16 12:38] LABS: RBC URINE 237 /hpf (0-3); URINE BILIRUBIN NEGATIVE (NEGATIVE); URINE BLOOD LARGE (NEGATIVE); URINE COLOR YELLOW (YELLOW); URINE GLUCOSE (UA) NEG (Normal); URINE KETONE NEGATIVE (NEGATIVE); URINE LEUKOCYTE ESTERASE NEG Leu/uL (Negative); URINE PROTEIN 30 mg/dL (NEGATIVE); WBC URINE 30 /hpf (0-5)
[2016-10-16] MEDS: methylPREDNISolone 30 MG in Sodium Chloride 0.9% 50 ML IVPB SCH (20:05)
[2016-10-17 05:19] LABS: BASO % 0.2 % (0.0-2.0); HEMATOCRIT 30.8 % (34.0-47.0); LYMPH # 0.1 K/uL (1.0-4.3); LYMPH % 1.3 % (20.0-40.0); MEAN CELL VOLUME 106.9 fl (81.0-99.0); MEAN CORPUSCULAR HEMOGLOBIN 33.2 pg (27.0-31.0); MEAN CORPUSCULAR HGB CONC 31.1 g/dL (33.0-37.0); MEAN PLATELET VOLUME 10.5 fl (7.2-11.7); MONO # 0.1 K/uL (0.0-0.8); MONO % 1.5 % (0.0-10.0); NEUT # 9.6 K/uL (1.8-7.0); NRBC % 0.2 % (0.0-0.0); PLATELET COUNT 79 K/uL (130-400); RED CELL DISTRIBUTION WIDTH 16.2 % (11.5-14.5); WHITE BLOOD COUNT 9.9 K/uL (4.8-10.8)
[2016-10-17 05:27] LABS: ALB/GLOB RATIO 1.2 (1.0-2.1); ALKALINE PHOSPHATASE 80 U/L (38-126); ALT/SGPT 73 U/L (9-52); AST/SGOT 36 U/L (14-36); BILIRUBIN,TOTAL 0.7 mg/dl (0.2-1.3); BLOOD UREA NITROGEN 38 mg/dl (7-17); CALCIUM 9.4 mg/dL (8.4-10.2); CHLORIDE 99 mmol/L (98-107); GFR AFRICAN-AMERICAN > 60; GLUCOSE,RANDOM 229 mg/dL (65-105); POTASSIUM 4.4 MMOL/L (3.6-5.0); SODIUM 144 mmol/l (132-148)
[2016-10-17 05:40] LABS: CARBON DIOXIDE 41 mmol/L (22-30)
[2016-10-17 07:08] LABS: NEUTROPHIL 96 % (42-75); TOTAL CELLS COUNTED 100
--- NOTE | 2016-10-17 08:06 | CP.PCM.PN ---
Subjective - Date & Time of Evaluation Date of Evaluation: 10/17/16 Time of Evaluation: 08:00 - Subjective Subjective: Patient seen bedside. On High flow O2 40 LPM FIO2 40 % saturating 97 %. Awake , alert oriented , with soft voice unable to vocalize sounds. No acute issues overnight. At present denies any pain or discomfort. Objective - Vital Signs/Intake and Output Vital Signs (last 24 hours): Temp Pulse Resp BP Pulse Ox 98.5 F 78 16 129/71 98 10/17/16 04:00 10/17/16 06:00 10/17/16 06:00 10/17/16 06:00 10/17/16 06:00 Intake and Output: 10/17/16 10/17/16 06:59 18:59 Intake Total 490 Output Total 450 Balance 40 - Medications Medications: Current Medications Acetaminophen (Tylenol 325mg Tab) 650 mg PO Q6 PRN PRN Reason: Fever >100.4 F Acetazolamide (Diamox 250 Mg Tab) 500 mg PO TID [facility] Last Admin: 10/16/16 16:58 Dose: 500 mg Albuterol/Ipratropium (Duoneb 3 Mg/0.5 Mg (3 Ml) Ud) 3 ml INH RQID [facility] Last Admin: 10/16/16 19:45 Dose: 3 ml Aspirin (Aspirin Chewable) 81 mg PO DAILY [facility] Last Admin: 10/16/16 08:39 Dose: 81 mg Digoxin (Lanoxin) 0.125 mg IVP DAILY [facility] Last Admin: 10/16/16 08:44 Dose: 0.125 mg Digoxin (Lanoxin) 0.125 mg IVP DAILY [facility] Last Admin: 10/16/16 09:35 Dose: Not Given Diltiazem HCl (Cardizem) 30 mg PO QID [facility] Last Admin: 10/16/16 16:57 Dose: 30 mg Famotidine (Pepcid) 40 mg PO HS [facility] Last Admin: 10/15/16 21:00 Dose: 40 mg Folic Acid (Folic Acid) 2 mg PO DAILY [facility] Last Admin: 10/16/16 08:41 Dose: 2 mg Hydroxychloroquine Sulfate (Plaquenil) 400 mg PO DAILY [facility] Last Admin: 10/08/16 08:45 Dose: 400 mg Fluconazole (Diflucan Iv 100 Mg/50 Ml Ns) 50 mls @ 50 mls/hr IVPB DAILY [facility] Last Admin: 10/16/16 08:40 Dose: 50 mls/hr Methylprednisolone 30 mg/ (Sodium Chloride) 50.48 mls @ 100 mls/hr IVPB Q12 [facility] Last Admin: 10/16/16 20:05 Dose: 100 mls/hr Lactic Acid (Lac-Hydrin 12% Cream (140 G)) 1 ea TOP BID [facility] Last Admin: 10/16/16 16:58 Dose: 1 applic Modafinil (Provigil) 200 mg PO DAILY [facility] Last Admin: 10/16/16 08:47 Dose: 200 mg Morphine Sulfate (Morphine) 1 mg IVP Q4 PRN PRN Reason: Anxiety Last Admin: 10/16/16 16:15 Dose: 1 mg Ondansetron HCl (Zofran Inj) 4 mg IVP Q6 PRN PRN Reason: Nausea/Vomiting - Labs Labs: 10/17/16 04:20 10/17/16 04:20 - Constitutional Appears: Chronically Ill, Other (in mild respiratory distress on high flow O2) - Head Exam Head Exam: ATRAUMATIC, NORMAL INSPECTION, NORMOCEPHALIC - Eye Exam Eye Exam: EOMI, PERRL Pupil Exam: NORMAL ACCOMODATION - ENT Exam ENT Exam: Mucous Membranes Dry, Normal Exam - Respiratory Exam Respiratory Exam: Accessory Muscle Use, Prolonged Expiratory Phase, Respiratory Distress Additional comments: decreased air entry bilaterally , no wheezing ,no rhonchi - Cardiovascular Exam Cardiovascular Exam: Irregular Rhythm. absent: JVD - GI/Abdominal Exam GI & Abdominal Exam: Soft, Normal Bowel Sounds. absent: Distended, Guarding, Tenderness, Rebound - Rectal Exam Rectal Exam: Deferred - Extremities Exam Extremities Exam: Pedal Edema (2 + to lower extremities , multiple echymotic areas to upper extremities,Toes cool to touch with purplish discoloration ) - Back Exam Back Exam: NORMAL INSPECTION - Neurological Exam Neurological Exam: Alert, Awake, CN II-XII Intact, Oriented x3 - Psychiatric Exam Psychiatric exam: Normal Affect - Skin Skin Exam: Dry, Pallor Assessment and Plan - Assessment and Plan (Free Text) Assessment: 66 year old female PMHx Severe COPD, CHF, HTN, HLD, RA, Chronic LE Edema, PVD, MAT, 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 Prior to TCU, she was admitted to the ICU for Acute on Chronic Resp Failure, COPD exacerbation and Pneumonia. Patient is well known to our service from prior admissions. She is a chronic CO2 retainer with PCO2 baseline 80. Readmitted to the ICU, due to CO2 narcosis and was placed on Bipap in the ER with improvement of mental status, started on Duonebs, Solumedrol. Patient has very poor prognosis due to her respiratory status. She has episodes of lethargy due to CO2 narcosis on BIPAP and high flow O2 ventilation with high FIO2 requirements. Code status changed to DNR/DNI as per patient's ands husbands wishes Hospice consulted; patient family continues to be undecided. 1. Acute on Chronic Respiratory Failure with Hypoxia and Hypercapnea likely sec to COPD Exacerbation Pt persistently hypercapneic and requires Bipap and high flow O2 Pulmonary, Dr. Yusuf following Continue settings BIPAP 20/6/24/40 % at night and high flow during the day 40/ 60 % Continue Solumedrol , Duonebs, Acetazolamide Tapered Solumedrol 30 mg IV Q12 Patient has very poor prognosis DNR / DNI status Hospice consulted, patient family still undecided 2. Metastatic squamous cell carcinoma of the lung Patient has been following up in [facility] Recent PET scan showed metastatic disease 3. Altered mental status secondary to CO2 narcosis continue BIPAP and high flow O2 4. Bilateral pneumonia ID consulted - Dr Larsen Received Meropenem, Diflucan and Vanco Sputum c/s: no organism Procalcitonin normal all antibiotics discontinued 5. Paroxysmal A Fib with RVR and MATs better controlled Cardizem drip was started , now d/c Dr Badillo consulted on Digoxin , cardizem PO ASA 81 mg PO daily Toprol discontinued currently not on anticoagulation Replace K Hold Plaquenil as may exacerbate arrhythmia 6. Chronic CHF (congestive heart failure), Diastolic Dysfunction/Pulm HTN Continue Lasix PRN 7. HTN (hypertension) BP stable 8. Hyperlipidemia Atorvastatin 10 mg PO QHS 9. GERD (gastroesophageal reflux disease) Protonix 40 mg 10. Rheumatoid arthritis/Peripheral Neuropathy of Bilateral Feet History Interstitial Lung Disease Methotrexate 15 mg PO every Saturday- will hold for now as discussed with Dr Satish alvarado Folic Acid d/c Plaquenil due to cardiac arrythmias d/c Gabapentin due to lethargy 11. Peripheral Vascular Disease/Chronic Venous Insufficiency With chronic LE edema and venous stasis erythematous toes bilaterally and cool to touch Lac-hydrin lotion to dry skin LE Continue ASA 12. UTI Urine culture positive for Enteroccocus faecalis (09/24/16) repeat urine cx growing yeast Started on Diflucan Pt received Meropenem and Vanco 13. Thrombocytopenia/ anemia prob sec to Infection, meds hold Lovenox for now monitor closely HIT-negative 14. Abdominal Pain-resolved poss UTI abd exam unremarkable 15. Leukocytosis --improving most likely steroid induced check uA and urine cx afebrile 16. DVT prophylaxis Lovenox on hold
[2016-10-17] MEDS: Albuterol-Ipratrop 3 mg / 0.5 (3 ml) UD INH SCH ×4 (08:16→19:59)
[2016-10-17] MEDS: Digoxin 500 mcg/2ml (0.5 mg/2ml) Inj IVP SCH ×2 (08:52→09:11)
[2016-10-17] MEDS: methylPREDNISolone 30 MG in Sodium Chloride 0.9% 50 ML IVPB SCH ×2 (08:53→20:27)
[2016-10-17] MEDS: Fluconazole IV 100mg/50 ml NS 50 ML IVPB SCH (08:54)
--- NOTE | 2016-10-17 08:55 | CP.PCM.PN ---
Subjective - Date & Time of Evaluation Date of Evaluation: 10/17/16 Time of Evaluation: 08:50 - Subjective Subjective: Awake and more alert this morning. Overnight events reviewed. Discussed with her . 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 Has remained afebrile, V rate controlled a fib. Small volume dark bloody sputum, difficult to expectorate. Dependant edema is unchanged. No cyanosis. SpO2 97% on HFNC. Breath sounds are present bilaterally w/o audible wheeze. Sonorous rhonchi in both LL's. Dry rales in UL's bilaterally. Heart sounds distant, irregular. WBC down to 9.9, Hgb 9.6, Plts 79. Glucose 229, ALT still elevated, CO2 41. Methylprednisolone reduced to 30MG BID. Trial OOB to chair this morning. May be moved out of ICU. HFNC reduced to 35LPM/50% O2. Objective - Vital Signs/Intake and Output Vital Signs (last 24 hours): Temp Pulse Resp BP Pulse Ox 98.1 F 84 34 H 138/67 93 L 10/17/16 08:00 10/17/16 08:00 10/17/16 08:17 10/17/16 08:00 10/17/16 08:00 Intake and Output: 10/16/16 10/17/16 23:59 11:59 Intake Total 830 360 Output Total 400 450 Balance 430 -90 - Medications Medications: Current Medications Acetaminophen (Tylenol 325mg Tab) 650 mg PO Q6 PRN PRN Reason: Fever >100.4 F Acetazolamide (Diamox 250 Mg Tab) 500 mg PO TID [facility] Last Admin: 10/16/16 16:58 Dose: 500 mg Albuterol/Ipratropium (Duoneb 3 Mg/0.5 Mg (3 Ml) Ud) 3 ml INH RQID [facility] Last Admin: 10/17/16 08:16 Dose: 3 ml Aspirin (Aspirin Chewable) 81 mg PO DAILY [facility] Last Admin: 10/16/16 08:39 Dose: 81 mg Digoxin (Lanoxin) 0.125 mg IVP DAILY [facility] Last Admin: 10/16/16 08:44 Dose: 0.125 mg Digoxin (Lanoxin) 0.125 mg IVP DAILY [facility] Last Admin: 10/16/16 09:35 Dose: Not Given Diltiazem HCl (Cardizem) 30 mg PO QID [facility] Last Admin: 10/16/16 16:57 Dose: 30 mg Famotidine (Pepcid) 40 mg PO HS [facility] Last Admin: 10/15/16 21:00 Dose: 40 mg Folic Acid (Folic Acid) 2 mg PO DAILY [facility] Last Admin: 10/16/16 08:41 Dose: 2 mg Hydroxychloroquine Sulfate (Plaquenil) 400 mg PO DAILY [facility] Last Admin: 10/08/16 08:45 Dose: 400 mg Fluconazole (Diflucan Iv 100 Mg/50 Ml Ns) 50 mls @ 50 mls/hr IVPB DAILY [facility] Last Admin: 10/16/16 08:40 Dose: 50 mls/hr Methylprednisolone 30 mg/ (Sodium Chloride) 50.48 mls @ 100 mls/hr IVPB Q12 [facility] Last Admin: 10/16/16 20:05 Dose: 100 mls/hr Lactic Acid (Lac-Hydrin 12% Cream (140 G)) 1 ea TOP BID [facility] Last Admin: 10/16/16 16:58 Dose: 1 applic Modafinil (Provigil) 200 mg PO DAILY [facility] Last Admin: 10/16/16 08:47 Dose: 200 mg Morphine Sulfate (Morphine) 1 mg IVP Q4 PRN PRN Reason: Anxiety Last Admin: 10/16/16 16:15 Dose: 1 mg Ondansetron HCl (Zofran Inj) 4 mg IVP Q6 PRN PRN Reason: Nausea/Vomiting - Labs Labs: 10/17/16 04:20 10/17/16 04:20 Assessment and Plan (1) Pulmonary infiltrates on CXR Status: Acute (2) Acute on chronic respiratory failure with hypoxia and hypercapnia Status: Acute (3) Atrial fibrillation Status: Chronic (4) 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
[2016-10-17] MEDS: Ammonium Lactate 12% Cream (140 g) TOP SCH ×3 (09:11→16:23)
--- NOTE | 2016-10-17 09:47 | CP.CCUPN ---
CCU Subjective - Physician Review Subjective (Free Text): The patient was Seen and examined by me at the bedside, Medical records reviewed and Management issues were discussed and formulated with the house staff. Awake, alert and oriented, communicate mostly by writing. Afebrile, Patient denies chest pain or palpations. less dyspneic, Abdominal pain, controlled with IV Morphine PRN Stable Respiratory status, Saturating 92-95% and unlabored breathing but SOB on minimal exertion. Continued on BIPAP machine with settings maintained 20/6 Rate 24, FIo2 of 50% O2 alternating with HFNC. Tolerating PO diet. HR better controlled on digoxin and Diltiazem 30 mg PO QID Started on low dose Xanax 0.25mg Q8H PRN and helping with anxiety and HR control IV Solumedrol, dose down to 30 mg IV Q12 10/12 Antibiotics was discontinued after discussion with PMD and ID, Procalcitonin level normal Started on Diflucan IV 100 Mg IVPB DAILY for UTI with urine C/S growing yeast Labs showing decreasing Bicarb level to 41, Improved leukocytosis of 12.8-->16.9 -->9.9 , Improved renal function 45/1-->38/.8 and K of 4.7 Patient is DNR/DNI and family still undecided regarding Hospice care. 10/17/16 11:02 CCU Objective - Vital Signs / Intake & Output Vital Signs (Last 4 hours): Vital Signs Temp Pulse Resp BP Pulse Ox 10/17/16 08:53 92 H 138/57 L 10/17/16 08:17 34 H 10/17/16 08:00 98.1 F 84 25 H 138/67 93 L 10/17/16 06:00 78 16 129/71 98 Intake and Output (Last 8hrs): Intake & Output 10/16/16 10/17/16 10/17/16 22:59 06:59 14:59 Intake Total 430 360 Output Total 400 450 Balance 30 -90 Intake: IV 70 Intake, Piggyback 50 Oral 380 290 Output: Urine 400 450 Urethral ([place]) 400 450 Other: # Bowel Movements 1 - Physical Exam Head: Positive for: Normocephalic Pupils: Positive for: PERRL Extroacular Muscles: Positive for: EOMI Conjunctiva: Positive for: Normal. Negative for: Icteric Mouth: Positive for: Moist Mucous Membranes. Negative for: Drooling Pharnyx: Positive for: Normal. Negative for: ERYTHEMA, EXUDATE Neck: Positive for: Normal Range of Motion, Trachea Midline Respiratory/Chest: Positive for: Decreased Breath Sounds, Rales (Dry rales), Rhonchi. Negative for: Accessory Muscle Use, Wheezes Cardiovascular: Positive for: Regular Rate and Rhythm, Normal S1, S2. Negative for: Murmurs, Rub Abdomen: Positive for: Normal Bowel Sounds. Negative for: Tenderness, Distention Upper Extremity: Positive for: Edema, Other (RUE PICC, site clean, intact/patent ) Lower Extremity: Positive for: Edema, Capillary Refill < 2 s, Other (Bilateral feet cool to touch with all toes discolored (red-purplish in color). ). Negative for: CALF TENDERNESS, Cyanosis Neurological: Positive for: GCS=15, CN II-XII Intact, Motor Func Grossly Intact. Negative for: Speech Normal Skin: Positive for: Warm, Other (scattered areas of ecchymoses over both upper arms). Negative for: Rashes - Medications Active Medications: Active Medications Generic Name Dose Route Start Last Admin Trade Name Freq PRN Reason Stop Dose Admin Acetaminophen 650 mg 10/05/16 16:41 Tylenol 325mg Tab PO Q6 PRN Fever >100.4 F Acetazolamide 500 mg 10/11/16 13:00 10/17/16 08:51 Diamox 250 Mg Tab PO 500 mg TID [facility] Administration Albuterol/Ipratropium 3 ml 10/05/16 20:00 10/17/16 08:16 Duoneb 3 Mg/0.5 Mg (3 Ml) Ud INH 3 ml RQID [facility] Administration Aspirin 81 mg 10/06/16 09:00 10/17/16 08:51 Aspirin Chewable PO 81 mg DAILY [facility] Administration Digoxin 0.125 mg 10/13/16 09:00 10/17/16 08:52 Lanoxin IVP 0.125 mg DAILY [facility] Administration Digoxin 0.125 mg 10/15/16 16:45 10/17/16 09:11 Lanoxin IVP Not Given DAILY [facility] Diltiazem HCl 30 mg 10/15/16 22:00 10/17/16 08:53 Cardizem PO 30 mg QID [facility] Administration Famotidine 40 mg 10/05/16 22:00 10/15/16 21:00 Pepcid PO 40 mg HS [facility] Administration Folic Acid 2 mg 10/06/16 09:00 10/17/16 08:51 Folic Acid PO 2 mg DAILY [facility] Administration Hydroxychloroquine Sulfate 400 mg 10/06/16 09:00 10/08/16 08:45 Plaquenil PO 400 mg DAILY [facility] Administration Fluconazole 50 mls @ 50 mls/hr 10/08/16 09:00 10/17/16 08:54 Diflucan Iv 100 Mg/50 Ml Ns IVPB 50 mls/hr DAILY [facility] Administration Methylprednisolone 30 mg/ 50.48 mls @ 100 mls/hr 10/16/16 21:00 10/17/16 08: 53 Sodium Chloride IVPB 100 mls/hr Q12 [facility] Administration Lactic Acid 1 ea 10/12/16 13:48 10/17/16 09:11 Lac-Hydrin 12% Cream (140 G) TOP Not Given BID [facility] Modafinil 200 mg 10/06/16 09:00 10/17/16 08:52 Provigil PO 200 mg DAILY [facility] Administration Morphine Sulfate 1 mg 10/15/16 11:29 10/17/16 08:55 Morphine IVP 1 mg Q4 PRN Administration Anxiety Ondansetron HCl 4 mg 10/05/16 16:40 Zofran Inj IVP Q6 PRN Nausea/Vomiting - Patient Studies Lab Studies: Lab Studies 10/17/16 10/17/16 10/16/16 Range/Units 04:20 04:20 08:28 WBC 9.9 (4.8-10.8) K/uL RBC 2.88 L (3.80-5.20) Mil/uL Hgb 9.6 L (12.0-16.0) g/dL Hct 30.8 L (34.0-47.0) % MCV 106.9 H (81.0-99.0) fl MCH 33.2 H (27.0-31.0) pg MCHC 31.1 L (33.0-37.0) g/dL RDW 16.2 H (11.5-14.5) % Plt Count 79 L D (130-400) K/uL MPV 10.5 (7.2-11.7) fl Neut % (Auto) 97.0 H (50.0-75.0) % Lymph % (Auto) 1.3 L (20.0-40.0) % [place] % (Auto) 1.5 (0.0-10.0) % Eos % (Auto) 0.0 (0.0-4.0) % Baso % (Auto) 0.2 (0.0-2.0) % Neut # 9.6 H (1.8-7.0) K/uL Lymph # 0.1 L (1.0-4.3) K/uL [place] # 0.1 (0.0-0.8) K/uL Eos # 0.0 (0.0-0.7) K/uL Baso # 0.0 (0.0-0.2) K/uL Neutrophils % (Manual) 96 H (42-75) % Lymphocytes % (Manual) 4 L (20-50) % Monocytes % (Manual) TEST NOT PERFORMED Platelet Estimate Decreased L (NORMAL) Polychromasia Slight Anisocytosis (manual) Slight Sodium 144 (132-148) mmol/l Potassium 4.4 (3.6-5.0) MMOL/L Chloride 99 (98-107) mmol/L Carbon Dioxide 41 H* (22-30) mmol/L Anion Gap 8 L (10-20) BUN 38 H (7-17) mg/dl Creatinine 0.8 (0.7-1.2) mg/dL Est GFR ( Amer) > 60 Est GFR (Non-Af Amer) > 60 Random Glucose 229 H (65-105) mg/dL Calcium 9.4 (8.4-10.2) mg/dL Total Bilirubin 0.7 (0.2-1.3) mg/dl AST 36 D (14-36) U/L ALT 73 H D (9-52) U/L Alkaline Phosphatase 80 (38-126) U/L Total Protein 5.0 L (6.3-8.2) G/DL Albumin 2.7 L (3.5-5.0) g/dL Globulin 2.3 (2.2-3.9) gm/dL Albumin/Globulin Ratio 1.2 (1.0-2.1) Urine Color Yellow (YELLOW) Urine Clarity Slighty-cloudy (Clear) Urine pH 6.0 (5.0-8.0) Ur Specific [place] 1.023 (1.003-1.030) Urine Protein 30 (NEGATIVE) mg/dL Urine Glucose (UA) Neg (Normal) mg/dL Urine Ketones Negative (NEGATIVE) mg/dL Urine Blood Large (NEGATIVE) Urine Nitrate Negative (NEGATIVE) Urine Bilirubin Negative (NEGATIVE) Urine Urobilinogen 4.0 H (0.2-1.0) mg/dL Ur Leukocyte Esterase Neg (Negative) April/uL Urine RBC (Auto) 237 H (0-3) /hpf Urine Microscopic WBC 30 H (0-5) /hpf Ur Squamous Epith Cells < 1 (0-5) /hpf Laboratory Results - last 24 hr 10/16/16 10/17/16 10/17/16 08:28 04:20 04:20 WBC 9.9 RBC 2.88 L Hgb 9.6 L Hct 30.8 L MCV 106.9 H MCH 33.2 H MCHC 31.1 L RDW 16.2 H Plt Count 79 L D MPV 10.5 Neut % (Auto) 97.0 H Lymph % (Auto) 1.3 L [place] % (Auto) 1.5 Eos % (Auto) 0.0 Baso % (Auto) 0.2 Neut # 9.6 H Lymph # 0.1 L [place] # 0.1 Eos # 0.0 Baso # 0.0 Neutrophils % (Manual) 96 H Lymphocytes % (Manual) 4 L Monocytes % (Manual) TEST NOT PERFORMED Platelet Estimate Decreased L Polychromasia Slight Anisocytosis (manual) Slight Sodium 144 Potassium 4.4 Chloride 99 Carbon Dioxide 41 H* Anion Gap 8 L BUN 38 H Creatinine 0.8 Est GFR ( Amer) > 60 Est GFR (Non-Af Amer) > 60 Random Glucose 229 H Calcium 9.4 Total Bilirubin 0.7 AST 36 D ALT 73 H D Alkaline Phosphatase 80 Total Protein 5.0 L Albumin 2.7 L Globulin 2.3 Albumin/Globulin Ratio 1.2 Urine Color Yellow Urine Clarity Slighty-cloudy Urine pH 6.0 Ur Specific [place] 1.023 Urine Protein 30 Urine Glucose (UA) Neg Urine Ketones Negative Urine Blood Large Urine Nitrate Negative Urine Bilirubin Negative Urine Urobilinogen 4.0 H Ur Leukocyte Esterase Neg Urine RBC (Auto) 237 H Urine Microscopic WBC 30 H Ur Squamous Epith Cells < 1 Fingerstick Blood Sugar Results: 264 Critical Care Progress Note - Nutrition Nutrition: Nutrition Category Date Time Status Regular Diet [DIET] Diets 10/05/16 Dinner Active Assessment/Plan (1) Acute on chronic respiratory failure with hypoxia and hypercapnia Current Visit: Yes Status: Acute Comment: Improved Respiratory status and unlabored breathing but SOB on minimal exertion. ALBUTEROL/Atrovent Nebs q6h PRN Wean off IV Solumedrol, dose down to 30 mg IV Q12 Pulmonary evaluation appretiated Aggressive pulmonary toilet, chest PT, suctioning Continued on BIPAP machine with settings maintained 20/6 Rate 24 40% O2 alternating with HFNC. Keep SaO2 >92% Acetazolamide (2) COPD (chronic obstructive pulmonary disease) Current Visit: No Status: Chronic Priority: High Comment: As per Resp failure Methylprednisolone 30 mg IVPB Q12 [facility] (3) Metabolic encephalopathy Current Visit: Yes Status: Acute Comment: Improved mental status On Provigil 200 mg PO DAILY (4) Atrial fibrillation Current Visit: No Status: Chronic Priority: High Comment: HR better controlled on digoxin 0.125 mg IVP DAILY and Diltiazem 30 mg PO QID Off Cardizem drip ASA 81 mg PO daily (5) Bronchogenic carcinoma of left lung Current Visit: No Status: Chronic Priority: High Comment: Stage 4 with ecent PET scan showing metastatic disease Pain controlled (6) Pulmonary hypertension Current Visit: No Status: Chronic Priority: High Comment: Due to underlying lung disease, supplemental oxygen. (7) UTI (urinary tract infection) due to Enterococcus Current Visit: No Status: Acute Comment: 10/12 Antibiotics was discontinued after discussion with PMD and ID, Procalcitonin level normal Started on Diflucan IV 100 Mg IVPB DAILY for UTI with urine C/S growing yeast (8) Prophylactic measure Current Visit: No Status: Acute Comment: Pepcid 40 mg PO DAILY ASA 81 mg PO daily Bilat Venodyne boots
[2016-10-18] MEDS: Albuterol-Ipratrop 3 mg / 0.5 (3 ml) UD INH SCH ×4 (07:42→20:20)
--- NOTE | 2016-10-18 09:08 | CP.PCM.PN ---
Subjective - Date & Time of Evaluation Date of Evaluation: 10/18/16 Time of Evaluation: 09:05 - Subjective Subjective: Seen on morning rounds in ICU. Interim events reviewed and discussed with [facility] certified concierge. Awake and alert, presently on HFNC. Maintains adequate oxygenation. Appears somewhat more alert, eating small amounts. Expectorated a small amount of dark bloody sputum during visit. Has remained OFF antibiotics except for fluconazole. Platelets were increasing, but dropped again yesterday to 79. Dependant edema still ++ w/o cyanosis. Small area of breakdown over nose from NPPV mask. No drainage from this wound. Neck is supple. Breath sounds are present bilaterally with medium rales posteriorly in upper lobes. No audible wheezing or bronchial breathing. Sonorous rhonchi in LL's posteriorly. Heart rhythm irregular in 70's. Abdomen is obese, soft and non-tender with + BS. Follow up CXR today. Reduced HFNC to 30L/50%. Same BiPAP settings. Replace dressing over nose when going back on mask ventilation. OOB to chair if possible. Transfer out of ICU. Considering LTAC. Objective - Vital Signs/Intake and Output Vital Signs (last 24 hours): Temp Pulse Resp BP Pulse Ox 98.5 F 78 34 H 132/70 98 10/18/16 07:32 10/18/16 07:38 10/18/16 07:42 10/18/16 07:32 10/18/16 07:32 Intake and Output: 10/17/16 10/18/16 23:59 11:59 Intake Total 450 110 Output Total 400 350 Balance 50 -240 - Medications Medications: Current Medications Acetaminophen (Tylenol 325mg Tab) 650 mg PO Q6 PRN PRN Reason: Fever >100.4 F Acetazolamide (Diamox 250 Mg Tab) 500 mg PO TID [facility] Last Admin: 10/17/16 16:23 Dose: 500 mg Albuterol/Ipratropium (Duoneb 3 Mg/0.5 Mg (3 Ml) Ud) 3 ml INH RQID [facility] Last Admin: 10/18/16 07:42 Dose: 3 ml Aspirin (Aspirin Chewable) 81 mg PO DAILY [facility] Last Admin: 10/17/16 08:51 Dose: 81 mg Digoxin (Lanoxin) 0.125 mg IVP DAILY [facility] Last Admin: 10/17/16 09:11 Dose: Not Given Diltiazem HCl (Cardizem) 30 mg PO QID [facility] Last Admin: 10/17/16 21:52 Dose: 30 mg Famotidine (Pepcid) 40 mg PO HS [facility] Last Admin: 10/17/16 21:50 Dose: 40 mg Folic Acid (Folic Acid) 2 mg PO DAILY [facility] Last Admin: 10/17/16 08:51 Dose: 2 mg Fluconazole (Diflucan Iv 100 Mg/50 Ml Ns) 50 mls @ 50 mls/hr IVPB DAILY [facility] Last Admin: 10/17/16 08:54 Dose: 50 mls/hr Methylprednisolone 30 mg/ (Sodium Chloride) 50.48 mls @ 100 mls/hr IVPB Q12 [facility] Stop: 10/18/16 12:00 Last Admin: 10/17/16 20:27 Dose: 100 mls/hr Methylprednisolone 20 mg/ (Sodium Chloride) 50.32 mls @ 100 mls/hr IVPB Q12 [facility] Lactic Acid (Lac-Hydrin 12% Cream (140 G)) 1 ea TOP BID [facility] Last Admin: 10/17/16 16:23 Dose: 1 applic Modafinil (Provigil) 200 mg PO DAILY [facility] Last Admin: 10/17/16 08:52 Dose: 200 mg Morphine Sulfate (Morphine) 1 mg IVP Q4 PRN PRN Reason: Anxiety Last Admin: 10/17/16 16:27 Dose: 1 mg Ondansetron HCl (Zofran Inj) 4 mg IVP Q6 PRN PRN Reason: Nausea/Vomiting - Labs Labs: 10/17/16 04:20 10/17/16 04:20 Assessment and Plan (1) Pulmonary infiltrates on CXR Status: Acute (2) Acute on chronic respiratory failure with hypoxia and hypercapnia Status: Acute (3) Atrial fibrillation Status: Chronic (4) 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
[2016-10-18] MEDS: Fluconazole IV 100mg/50 ml NS 50 ML IVPB SCH (10:13)
[2016-10-18] MEDS: Digoxin 500 mcg/2ml (0.5 mg/2ml) Inj IVP SCH (10:14)
[2016-10-18] MEDS: Ammonium Lactate 12% Cream (140 g) TOP SCH ×2 (10:14→17:14)
[2016-10-18] MEDS: methylPREDNISolone 30 MG in Sodium Chloride 0.9% 50 ML IVPB SCH (10:21)
--- NOTE | 2016-10-18 13:08 | CP.PCM.PN ---
Subjective - Date & Time of Evaluation Date of Evaluation: 10/18/16 Time of Evaluation: 07:30 - Subjective Subjective: Patient seen bedside.Chronically ill female, overweight lying in bed in NAD. On High flow O2 30 LPM FIO2 50 % saturating 97 %. Awake , alert oriented , with soft voice unable to vocalize sounds. No acute issues overnight. At present denies any pain or discomfort. Tolerating BPAP at night.expectorating minimal amount of sputum with some blood Objective - Vital Signs/Intake and Output Vital Signs (last 24 hours): Temp Pulse Resp BP Pulse Ox 98.5 F 95 H 31 H 126/59 L 97 10/18/16 07:32 10/18/16 11:35 10/18/16 10:00 10/18/16 10:12 10/18/16 10:00 Intake and Output: 10/18/16 10/18/16 06:59 18:59 Intake Total 320 240 Output Total 350 Balance -30 240 - Medications Medications: Current Medications Acetaminophen (Tylenol 325mg Tab) 650 mg PO Q6 PRN PRN Reason: Fever >100.4 F Acetazolamide (Diamox 250 Mg Tab) 500 mg PO TID [facility] Last Admin: 10/18/16 10:12 Dose: 500 mg Albuterol/Ipratropium (Duoneb 3 Mg/0.5 Mg (3 Ml) Ud) 3 ml INH RQID [facility] Last Admin: 10/18/16 11:35 Dose: 3 ml Aspirin (Aspirin Chewable) 81 mg PO DAILY [facility] Last Admin: 10/18/16 10:23 Dose: 81 mg Digoxin (Lanoxin) 0.125 mg IVP DAILY [facility] Last Admin: 10/18/16 10:14 Dose: 0.125 mg Diltiazem HCl (Cardizem) 30 mg PO QID [facility] Last Admin: 10/18/16 10:12 Dose: 30 mg Famotidine (Pepcid) 40 mg PO HS [facility] Last Admin: 10/17/16 21:50 Dose: 40 mg Folic Acid (Folic Acid) 2 mg PO DAILY [facility] Last Admin: 10/18/16 09:00 Dose: 2 mg Fluconazole (Diflucan Iv 100 Mg/50 Ml Ns) 50 mls @ 50 mls/hr IVPB DAILY [facility] Last Admin: 10/18/16 10:13 Dose: 50 mls/hr Methylprednisolone 20 mg/ (Sodium Chloride) 50.32 mls @ 100 mls/hr IVPB Q12 [facility] Lactic Acid (Lac-Hydrin 12% Cream (140 G)) 1 ea TOP BID [facility] Last Admin: 10/18/16 10:14 Dose: 1 applic Modafinil (Provigil) 200 mg PO DAILY [facility] Last Admin: 10/18/16 10:22 Dose: 200 mg Morphine Sulfate (Morphine) 1 mg IVP Q4 PRN PRN Reason: Anxiety Last Admin: 10/18/16 10:16 Dose: 1 mg Ondansetron HCl (Zofran Inj) 4 mg IVP Q6 PRN PRN Reason: Nausea/Vomiting - Labs Labs: 10/17/16 04:20 10/17/16 04:20 - Constitutional Appears: Chronically Ill, Other (mild respiratory distress ) - Head Exam Head Exam: ATRAUMATIC, NORMAL INSPECTION, NORMOCEPHALIC - Eye Exam Eye Exam: EOMI, PERRL Pupil Exam: NORMAL ACCOMODATION - ENT Exam ENT Exam: Mucous Membranes Dry, Normal Exam - Neck Exam Neck Exam: Normal Inspection - Respiratory Exam Respiratory Exam: Accessory Muscle Use, Decreased Breath Sounds (bibasilar), Prolonged Expiratory Phase. absent: Rhonchi, Wheezes - Cardiovascular Exam Cardiovascular Exam: Irregular Rhythm. absent: JVD - GI/Abdominal Exam GI & Abdominal Exam: Soft, Normal Bowel Sounds. 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 Prior to TCU, she was admitted to the ICU for Acute on Chronic Resp Failure, COPD exacerbation and Pneumonia. Patient is well known to our service from prior admissions. She is a chronic CO2 retainer with PCO2 baseline 80. Readmitted to the ICU, due to CO2 narcosis and was placed on Bipap in the ER with improvement of mental status, started on Duonebs, Solumedrol. Patient has very poor prognosis due to her respiratory status. She has episodes of lethargy due to CO2 narcosis on BIPAP and high flow O2 ventilation with high PS and FIO2 requirements. Code status DNR/DNI as per patient's and husbands wishes .Hospice consulted but still patient and family continues to be undecided. 1. Acute on Chronic Respiratory Failure with Hypoxia and Hypercapnea likely sec to COPD Exacerbation Pt persistently hypercapneic and requires Bipap and high flow O2 Pulmonary, Dr. Yusuf following Continue settings BIPAP 20/6/24/40 % at night Changed high flow to 30 LPM / 50 % Continue Solumedrol , Duonebs, Acetazolamide Tapered Solumedrol 20 mg IV Q12 Patient has very poor prognosis DNR / DNI status Hospice consulted, patient family still undecided will transfer out of ICU will refer for LTACH 2. Metastatic squamous cell carcinoma of the lung Patient has been following up in [facility] Recent PET scan showed metastatic disease 3. Altered mental status secondary to CO2 narcosis continue BIPAP and high flow O2 4. Bilateral pneumonia ID consulted - Dr Larsen Received Meropenem, Diflucan and Vanco Sputum c/s: no organism Procalcitonin normal all antibiotics discontinued 5. Paroxysmal A Fib with RVR and MATs better controlled Cardizem drip was started , now d/c Dr Badillo consulted on Digoxin , cardizem PO ASA 81 mg PO daily Toprol discontinued currently not on anticoagulation Replace K Hold Plaquenil as may exacerbate arrhythmia 6. Chronic CHF (congestive heart failure), Diastolic Dysfunction/Pulm HTN Continue Lasix PRN 7. HTN (hypertension) BP stable 8. Hyperlipidemia Atorvastatin 10 mg PO QHS 9. GERD (gastroesophageal reflux disease) Protonix 40 mg 10. Rheumatoid arthritis/Peripheral Neuropathy of Bilateral Feet History Interstitial Lung Disease Methotrexate 15 mg PO every Saturday- will hold for now as discussed with Dr Satish alvarado Folic Acid d/c Plaquenil due to cardiac arrythmias d/c Gabapentin due to lethargy 11. Peripheral Vascular Disease/Chronic Venous Insufficiency With chronic LE edema and venous stasis erythematous toes bilaterally and cool to touch Lac-hydrin lotion to dry skin LE Continue ASA 12. UTI Urine culture positive for Enteroccocus faecalis (09/24/16) repeat urine cx growing yeast Started on Diflucan Pt received Meropenem and Vanco 13. Thrombocytopenia/ anemia prob sec to Infection, meds hold Lovenox for now monitor closely HIT-negative 14. Abdominal Pain-resolved poss UTI abd exam unremarkable 15. Leukocytosis --improving most likely steroid induced uA showed large RB C and WBC but no LE and nitrates F/u urine cx afebrile 16. DVT prophylaxis Lovenox on hold
--- NOTE | 2016-10-18 17:25 | RAD ---
HISTORY: Shortness of breath. Technique: Portable study performed @ 09:30 COMPARISON: No prior. FINDINGS: LUNGS: Stable multifocal infiltrates. PLEURA: No significant pleural effusion identified, no pneumothorax apparent. CARDIOVASCULAR: No significant interval change compared to the prior examination(s). PICC line in satisfactory position unchanged. OSSEOUS STRUCTURES: No significant abnormalities. VISUALIZED UPPER ABDOMEN: Normal. OTHER FINDINGS: None. IMPRESSION: No significant interval change compared to the prior examination(s).
[2016-10-18] MEDS: methylPREDNISolone 20 MG in Sodium Chloride 0.9% 50 ML IVPB SCH (20:15)
[2016-10-19 06:42] LABS: HEMATOCRIT 29.6 % (34.0-47.0); MEAN CORPUSCULAR HEMOGLOBIN 33.8 pg (27.0-31.0); MEAN CORPUSCULAR HGB CONC 32.2 g/dL (33.0-37.0); RED CELL DISTRIBUTION WIDTH 16.2 % (11.5-14.5); WHITE BLOOD COUNT 10.6 K/uL (4.8-10.8)
[2016-10-19 06:47] LABS: BLOOD UREA NITROGEN 29 mg/dl (7-17); CARBON DIOXIDE 39 mmol/L (22-30); CHLORIDE 98 mmol/L (98-107); GFR AFRICAN-AMERICAN > 60; GLUCOSE,RANDOM 210 mg/dL (65-105); POTASSIUM 4.2 MMOL/L (3.6-5.0); SODIUM 141 mmol/l (132-148)
--- NOTE | 2016-10-19 07:30 | CP.PCM.PN ---
Subjective - Date & Time of Evaluation Date of Evaluation: 10/19/16 Time of Evaluation: 07:30 - Subjective Subjective: Patient seen bedside.Chronically ill female, overweight lying in bed in NAD.Appearas more awake and comfortable, in good spirits .On BIpap FIO2 40% . No acute issues overnight.Tolerating high flow during the day , 30 LPM FIO2 50 % saturating 97 %.sounds At present denies any pain or discomfort. Family agreeable for LTACH referral Objective - Vital Signs/Intake and Output Vital Signs (last 24 hours): Temp Pulse Resp BP Pulse Ox 98.3 F 79 24 141/59 L 97 10/19/16 04:00 10/19/16 06:00 10/19/16 06:00 10/19/16 06:00 10/19/16 06:00 Intake and Output: 10/19/16 10/19/16 06:59 18:59 Intake Total 270 Output Total 300 Balance -30 - Medications Medications: Current Medications Acetaminophen (Tylenol 325mg Tab) 650 mg PO Q6 PRN PRN Reason: Fever >100.4 F Acetazolamide (Diamox 250 Mg Tab) 500 mg PO TID [facility] Last Admin: 10/18/16 17:13 Dose: 500 mg Albuterol/Ipratropium (Duoneb 3 Mg/0.5 Mg (3 Ml) Ud) 3 ml INH RQID [facility] Last Admin: 10/18/16 20:20 Dose: 3 ml Aspirin (Aspirin Chewable) 81 mg PO DAILY [facility] Last Admin: 10/18/16 10:23 Dose: 81 mg Digoxin (Lanoxin) 0.125 mg IVP DAILY [facility] Last Admin: 10/18/16 10:14 Dose: 0.125 mg Diltiazem HCl (Cardizem) 30 mg PO QID [facility] Last Admin: 10/18/16 17:12 Dose: 30 mg Famotidine (Pepcid) 40 mg PO HS [facility] Last Admin: 10/18/16 22:00 Dose: 40 mg Folic Acid (Folic Acid) 2 mg PO DAILY [facility] Last Admin: 10/18/16 09:00 Dose: 2 mg Fluconazole (Diflucan Iv 100 Mg/50 Ml Ns) 50 mls @ 50 mls/hr IVPB DAILY [facility] Last Admin: 10/18/16 10:13 Dose: 50 mls/hr Methylprednisolone 20 mg/ (Sodium Chloride) 50.32 mls @ 100 mls/hr IVPB Q12 [facility] Last Admin: 10/18/16 20:15 Dose: 100 mls/hr Lactic Acid (Lac-Hydrin 12% Cream (140 G)) 1 ea TOP BID [facility] Last Admin: 10/18/16 17:14 Dose: 1 applic Modafinil (Provigil) 200 mg PO DAILY [facility] Last Admin: 10/18/16 10:22 Dose: 200 mg Morphine Sulfate (Morphine) 1 mg IVP Q4 PRN PRN Reason: Anxiety Last Admin: 10/18/16 10:16 Dose: 1 mg Ondansetron HCl (Zofran Inj) 4 mg IVP Q6 PRN PRN Reason: Nausea/Vomiting - Labs Labs: 10/19/16 06:32 10/19/16 06:32 - Constitutional Appears: Chronically Ill - Head Exam Head Exam: NORMAL INSPECTION, NORMOCEPHALIC - Eye Exam Eye Exam: EOMI, Normal appearance, PERRL Pupil Exam: NORMAL ACCOMODATION - ENT Exam ENT Exam: Mucous Membranes Dry, Normal Exam - Neck Exam Neck Exam: Full ROM, Normal Inspection - Respiratory Exam Respiratory Exam: Accessory Muscle Use, Decreased Breath Sounds (bibasilar ), Prolonged Expiratory Phase, Respiratory Distress. absent: Wheezes - Cardiovascular Exam Cardiovascular Exam: Irregular Rhythm, +S1, +S2. absent: JVD - GI/Abdominal Exam GI & Abdominal Exam: Soft, Normal Bowel Sounds. 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 Prior to TCU, she was admitted to the ICU for Acute on Chronic Resp Failure, COPD exacerbation and Pneumonia. Patient is well known to our service from prior admissions. She is a chronic CO2 retainer with PCO2 baseline 80. Readmitted to the ICU, due to CO2 narcosis and was placed on Bipap in the ER with improvement of mental status, started on Duonebs, Solumedrol. Patient has very poor prognosis due to her respiratory status. She has episodes of lethargy due to CO2 narcosis on BIPAP and high flow O2 ventilation with high PS and FIO2 requirements. Code status DNR/DNI as per patient's and husbands wishes .Hospice consulted but still patient and family undecided. 1. Acute on Chronic Respiratory Failure with Hypoxia and Hypercapnea likely sec to COPD Exacerbation Pt persistently hypercapneic and requires Bipap and high flow O2 Pulmonary, Dr. Yusuf following Continue settings BIPAP 20/6/24/40 % at night High flow O2 during the day 30 LPM / 50 % Continue Solumedrol , Duonebs, Acetazolamide Tapered Solumedrol 20 mg IV Q12 Patient has very poor prognosis DNR / DNI status Hospice consulted, patient family still undecided will transfer out of ICU will refer for LTACH 2. Metastatic squamous cell carcinoma of the lung Patient has been following up in [facility] Recent PET scan showed metastatic disease 3. Altered mental status secondary to CO2 narcosis continue BIPAP and high flow O2 4. Bilateral pneumonia ID consulted - Dr Larsen Received Meropenem, Diflucan and Vanco Sputum c/s: no organism Procalcitonin normal all antibiotics discontinued 5. Paroxysmal A Fib with RVR and MATs better controlled Cardizem drip was started , now d/c Dr Badillo consulted on Digoxin , cardizem PO ASA 81 mg PO daily Toprol discontinued currently not on anticoagulation Replace K Hold Plaquenil as may exacerbate arrhythmia 6. Chronic CHF (congestive heart failure), Diastolic Dysfunction/Pulm HTN Continue Lasix PRN 7. HTN (hypertension) BP stable 8. Hyperlipidemia Atorvastatin 10 mg PO QHS 9. GERD (gastroesophageal reflux disease) Protonix 40 mg 10. Rheumatoid arthritis/Peripheral Neuropathy of Bilateral Feet History Interstitial Lung Disease Methotrexate 15 mg PO every Saturday- will hold for now as discussed with Dr Satish alvarado Folic Acid d/c Plaquenil due to cardiac arrythmias d/c Gabapentin due to lethargy 11. Peripheral Vascular Disease/Chronic Venous Insufficiency With chronic LE edema and venous stasis erythematous toes bilaterally and cool to touch Lac-hydrin lotion to dry skin LE Continue ASA 12. UTI Urine culture positive for Enteroccocus faecalis (09/24/16) repeat urine cx growing yeast Started on Diflucan Pt received Meropenem and Vanco 13. Thrombocytopenia/ anemia prob sec to Infection, meds hold Lovenox for now monitor closely HIT-negative 14. Abdominal Pain-resolved poss UTI abd exam unremarkable 15. Leukocytosis --improving most likely steroid induced uA showed large RB C and WBC but no LE and nitrates F/u urine cx afebrile 16. DVT prophylaxis Lovenox on hold
[2016-10-19 07:35] LABS: NEUTROPHIL 98 % (42-75); TOTAL CELLS COUNTED 100
[2016-10-19 07:36] LABS: STOMATOCYTES SLIGHT
[2016-10-19 07:38] LABS: ACANTHOCYTES SLIGHT
[2016-10-19] MEDS: Albuterol-Ipratrop 3 mg / 0.5 (3 ml) UD INH SCH ×4 (07:43→19:28)
--- NOTE | 2016-10-19 09:03 | CP.PCM.PN ---
Subjective - Date & Time of Evaluation Date of Evaluation: 10/19/16 Time of Evaluation: 09:01 - Subjective Subjective: Case discussed with hospitalist. Present status discussed with patient's and brother. Currently awake and alert, waiting for breakfast. On BiPAP mask ventilation overnight, SpO2 98%. Uses HFNC on and off during the day. CBC is stable CO2 is gradually decreasing (39 today). Renal function is stable. Dependant edema remains++, no cyanosis, but erythema of both feet + w/o increased warmth. Neck is supple and trachea is midline. Breath sounds are present bilaterally, inspiratory phase is short, tachypneic at 22 BPM. Dry rales are present mostly in the upper lobes bilaterally. No wheezing is heard. Heart rate is controlled, rhythm irregular. CXR showing stable interstitial and alveolar infiltrates with STEPHEN mass. Would attempt to have her sit up OOB to chair if possible. Some level of physical therapy to improve strength as able. Slowly reduce supplemental oxygen percentage as tolerated. It seems she may be most appropriate now for LTAC. Maybe she will be able to return home eventually. I don't see her as appropriate for [facility], nor is she appropriate for inpatient hospice. I have discussed LTAC with her and he appears agreeable. Objective - Vital Signs/Intake and Output Vital Signs (last 24 hours): Temp Pulse Resp BP Pulse Ox 98.9 F 81 16 132/62 99 10/19/16 08:00 10/19/16 08:00 10/19/16 08:00 10/19/16 08:00 10/19/16 08:00 Intake and Output: 10/18/16 10/19/16 23:59 11:59 Intake Total 350 140 Output Total 500 300 Balance -150 -160 - Medications Medications: Current Medications Acetaminophen (Tylenol 325mg Tab) 650 mg PO Q6 PRN PRN Reason: Fever >100.4 F Acetazolamide (Diamox 250 Mg Tab) 500 mg PO TID [facility] Last Admin: 10/18/16 17:13 Dose: 500 mg Albuterol/Ipratropium (Duoneb 3 Mg/0.5 Mg (3 Ml) Ud) 3 ml INH RQID [facility] Last Admin: 10/19/16 07:43 Dose: 3 ml Aspirin (Aspirin Chewable) 81 mg PO DAILY [facility] Last Admin: 10/18/16 10:23 Dose: 81 mg Digoxin (Lanoxin) 0.125 mg IVP DAILY [facility] Last Admin: 10/18/16 10:14 Dose: 0.125 mg Diltiazem HCl (Cardizem) 30 mg PO QID [facility] Last Admin: 10/18/16 17:12 Dose: 30 mg Famotidine (Pepcid) 40 mg PO HS [facility] Last Admin: 10/18/16 22:00 Dose: 40 mg Folic Acid (Folic Acid) 2 mg PO DAILY [facility] Last Admin: 10/18/16 09:00 Dose: 2 mg Fluconazole (Diflucan Iv 100 Mg/50 Ml Ns) 50 mls @ 50 mls/hr IVPB DAILY [facility] Last Admin: 10/18/16 10:13 Dose: 50 mls/hr Methylprednisolone 20 mg/ (Sodium Chloride) 50.32 mls @ 100 mls/hr IVPB Q12 [facility] Last Admin: 10/18/16 20:15 Dose: 100 mls/hr Lactic Acid (Lac-Hydrin 12% Cream (140 G)) 1 ea TOP BID [facility] Last Admin: 10/18/16 17:14 Dose: 1 applic Modafinil (Provigil) 200 mg PO DAILY [facility] Last Admin: 10/18/16 10:22 Dose: 200 mg Morphine Sulfate (Morphine) 1 mg IVP Q4 PRN PRN Reason: Anxiety Last Admin: 10/18/16 10:16 Dose: 1 mg Ondansetron HCl (Zofran Inj) 4 mg IVP Q6 PRN PRN Reason: Nausea/Vomiting - Labs Labs: 10/19/16 06:32 10/19/16 06:32 Assessment and Plan (1) Pulmonary infiltrates on CXR Status: Acute (2) Acute on chronic respiratory failure with hypoxia and hypercapnia Status: Acute (3) Atrial fibrillation Status: Chronic (4) 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
[2016-10-19] MEDS: Fluconazole IV 100mg/50 ml NS 50 ML IVPB SCH (09:28)
[2016-10-19] MEDS: Digoxin 500 mcg/2ml (0.5 mg/2ml) Inj IVP SCH (09:29)
[2016-10-19] MEDS: Ammonium Lactate 12% Cream (140 g) TOP SCH ×2 (09:29→18:38)
[2016-10-19] MEDS: methylPREDNISolone 20 MG in Sodium Chloride 0.9% 50 ML IVPB SCH ×2 (14:07→20:09)
--- NOTE | 2016-10-19 18:06 | PN ---
LOCATION: The patient in ICU bed 422. TIME SPENT: 35 minutes. SUBJECTIVE: The patient is seen and examined at the bedside, discussed case in a.m. rounds. A 66-year-old female, reformed smoker, chronic obstructive pulmonary disease, metastatic squamous cell carcinoma of left lung, paroxysmal atrial fibrillation, admitted with acute respiratory failure, requiring BiPAP at night and high-flow nasal oxygen in the morning. Currently DNI/DNR status at the request of the patient's family. Overnight telemetry atrial fibrillation with rate controlled, normotensive, afebrile. This morning, alert, awake, off BiPAP; on high-flow nasal oxygen saturating 94%. Alert, awake, follows commands appropriate. Denies shortness of breath at rest; able to tolerate breakfast and feels hungry. PHYSICAL EXAMINATION: VITAL SIGNS: Temperature 98.9, heart rate 89, respiratory rate 28 thoracoabdominal saturating 94 on FiO2 50%. Intake 730 and output 800, negative balance 70 mL. HEAD, EYES, EARS, NOSE, AND THROAT: Pupils are reactive. Conjunctivae pink. Sclerae white. NECK: Supple. Trachea is central. CHEST: Breath sounds diminished bilaterally, prolonged expiration, crepitations bilaterally. No audible wheezing. HEART: Rhythm irregular. No audible murmur. ABDOMEN: Bowel sounds present and soft. EXTREMITIES: 1-2+ dependant edema. SKIN: Mild erythema with breakdown on the root of the nose from BiPAP. CURRENT MEDICATIONS: Tylenol 650 q. 6 p.r.n., Diamox 500 mg p.o. three times daily, DuoNeb 3 mL via nebulizer q.i.d., aspirin 81 mg daily, Lanoxin 0.125 mg IV daily, Cardizem 30 mg p.o. q.6 hours, Pepcid 40 mg p.o. at bedtime, Diflucan 100 mg IV daily, folic acid 2 mg daily, lac-hydrin 12% cream topically twice daily, Solu-Medrol 20 mg IV q. 12, Provigil 200 mg p.o. daily, morphine 1 mg IV q.4 p.r.n. for anxiety, Zofran 4 mg IV q. 6 p.r.n. LABORATORY DATA: WBC 10.6, hemoglobin 9.5, hematocrit 29.6, platelet count 85. Heparin induced thrombocytopenia, negative. SMA-7 sodium 141, potassium 4.2, chloride 98, CO2 of 39, blood urea nitrogen 29, creatinine 0.8, random glucose 210, calcium 10. Urinalysis: Urobilinogen 4, leukocyte esterase negative, rbc's 237, wbc's 30. Vancomycin trough level 18.5, digoxin 2. Urine culture negative. Sputum culture, no growth. Nasal smear, MRSA negative. Chest x-ray dated 10/18/2016, no significant pleural effusion. No pneumothorax. Stable multifocal infiltrates. IMPRESSION: 1. Neuro: Hypercarbia with encephalopathy related, improved on BiPAP at night and high-flow nasal oxygen in the morning. 2. Pulmonary: Acute on chronic respiratory failure secondary to chronic obstructive pulmonary disease exacerbation on Diamox, bronchodilator, systemic steroid. Bilateral pneumonia currently off antibiotic on fluconazole. 3. Hematology/oncology: Metastatic lung carcinoma; no active intervention planned. Thrombocytopenia, negative heparin induced antibody. Closely monitor. 4. Renal/endocrine: Continue current feeding, blood sugar less than 180 mg. 5. Renal function stable. 6. History of rheumatoid arthritis, off Plaquenil secondary to cardiac arrhythmia. 7. History of paroxysmal atrial fibrillation, rate uncontrolled, not on anticoagulation secondary to recent hemoptysis. PLAN: DNR/DNI, hospice care evaluation in progress. Continue comfort care with current medications. Leaking around [place] catheter with urine incontinence noted. Consider discontinuation if the patient can void urine. Pedro Cifuentes MD
[2016-10-20] MEDS: Albuterol-Ipratrop 3 mg / 0.5 (3 ml) UD INH SCH ×4 (07:37→19:12)
[2016-10-20] MEDS: Ammonium Lactate 12% Cream (140 g) TOP SCH ×2 (08:46→17:42)
[2016-10-20] MEDS: Digoxin 500 mcg/2ml (0.5 mg/2ml) Inj IVP SCH (08:47)
--- NOTE | 2016-10-20 08:47 | CP.PCM.PN ---
Subjective - Date & Time of Evaluation Date of Evaluation: 10/20/16 Time of Evaluation: 08:45 - Subjective Subjective: pt seen examined bedside, no acute events overnight. resting comfortably. HFNC 33LPM 50% SPO2 97% HD stable FOR LTACH Objective - Vital Signs/Intake and Output Vital Signs (last 24 hours): Temp Pulse Resp BP Pulse Ox 98.4 F 95 H 30 H 148/71 97 10/20/16 05:00 10/20/16 06:30 10/20/16 07:38 10/20/16 06:30 10/20/16 06:30 Intake and Output: 10/20/16 10/20/16 06:59 18:59 Intake Total 410 Output Total 430 Balance -20 - Medications Medications: Current Medications Acetaminophen (Tylenol 325mg Tab) 650 mg PO Q6 PRN PRN Reason: Fever >100.4 F Acetazolamide (Diamox 250 Mg Tab) 500 mg PO TID [facility] Last Admin: 10/19/16 18:38 Dose: 500 mg Albuterol/Ipratropium (Duoneb 3 Mg/0.5 Mg (3 Ml) Ud) 3 ml INH RQID [facility] Last Admin: 10/20/16 07:37 Dose: 3 ml Aspirin (Aspirin Chewable) 81 mg PO DAILY [facility] Last Admin: 10/19/16 09:27 Dose: 81 mg Digoxin (Lanoxin) 0.125 mg IVP DAILY [facility] Last Admin: 10/19/16 09:29 Dose: 0.125 mg Diltiazem HCl (Cardizem) 30 mg PO 0000,0600,1200,1800 [facility] Last Admin: 10/20/16 06:30 Dose: 30 mg Famotidine (Pepcid) 40 mg PO HS [facility] Last Admin: 10/19/16 21:17 Dose: 40 mg Folic Acid (Folic Acid) 2 mg PO DAILY [facility] Last Admin: 10/19/16 09:27 Dose: 2 mg Fluconazole (Diflucan Iv 100 Mg/50 Ml Ns) 50 mls @ 50 mls/hr IVPB DAILY [facility] Last Admin: 10/19/16 09:28 Dose: 50 mls/hr Methylprednisolone 20 mg/ (Sodium Chloride) 50.32 mls @ 100 mls/hr IVPB Q12 [facility] Last Admin: 10/19/16 20:09 Dose: 100 mls/hr Lactic Acid (Lac-Hydrin 12% Cream (140 G)) 1 ea TOP BID [facility] Last Admin: 10/19/16 18:38 Dose: 1 applic Modafinil (Provigil) 200 mg PO DAILY [facility] Last Admin: 10/19/16 09:38 Dose: 200 mg Morphine Sulfate (Morphine) 1 mg IVP Q4 PRN PRN Reason: Anxiety Last Admin: 10/19/16 10:31 Dose: 1 mg Ondansetron HCl (Zofran Inj) 4 mg IVP Q6 PRN PRN Reason: Nausea/Vomiting - Labs Labs: 10/19/16 06:32 10/19/16 06:32 - Constitutional Appears: Non-toxic, No Acute Distress - Head Exam Head Exam: ATRAUMATIC, NORMOCEPHALIC - Eye Exam Eye Exam: EOMI, Normal appearance - ENT Exam ENT Exam: Mucous Membranes Moist, Normal Oropharynx - Respiratory Exam Respiratory Exam: Decreased Breath Sounds, NORMAL BREATHING PATTERN. absent: Accessory Muscle Use, Wheezes - Cardiovascular Exam Cardiovascular Exam: RRR, +S1, +S2. absent: Gallop, Rubs - GI/Abdominal Exam GI & Abdominal Exam: Soft, Normal Bowel Sounds. absent: Tenderness, Organomegaly - Extremities Exam Extremities Exam: Full ROM, Normal Capillary Refill - Back Exam Back Exam: absent: CVA tenderness (L), CVA tenderness (R) - Neurological Exam Neurological Exam: Alert, Awake - Psychiatric Exam Psychiatric exam: Normal Affect, Normal Mood - Skin Skin Exam: Dry, Normal Color Assessment and Plan - Assessment and Plan (Free Text) Plan: 66 year old female PMHx Severe COPD, CHF, HTN, HLD, RA, Chronic LE Edema, PVD, MAT, 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 Prior to TCU, she was admitted to the ICU for Acute on Chronic Resp Failure, COPD exacerbation and Pneumonia. Patient is well known to our service from prior admissions. She is a chronic CO2 retainer with PCO2 baseline 80. Readmitted to the ICU, due to CO2 narcosis and was placed on Bipap in the ER with improvement of mental status, started on Duonebs, Solumedrol. Patient has very poor prognosis due to her respiratory status. She has episodes of lethargy due to CO2 narcosis on BIPAP and high flow O2 ventilation with high PS and FIO2 requirements. Code status DNR/DNI as per patient's and husbands wishes. Patient's family is agreeable for LTACH. 1. Acute on Chronic Respiratory Failure with Hypoxia and Hypercapnea likely sec to COPD Exacerbation Pt persistently hypercapneic and requires Bipap and high flow O2 Pulmonary, Dr. Yusuf following Continue settings BIPAP 20//24/40 % at night High flow O2 during the day 33 LPM / 50 % Continue Solumedrol , Duonebs, Acetazolamide Tapered Solumedrol 20 mg IV Q12 Patient has very poor prognosis DNR / DNI status Hospice consulted, patient family still undecided will transfer out of ICU will refer for LTACH 2. Metastatic squamous cell carcinoma of the lung Patient has been following up in [facility] Recent PET scan showed metastatic disease 3. Altered mental status secondary to CO2 narcosis continue BIPAP and high flow O2 4. Bilateral pneumonia ID consulted - Dr Larsen Received Meropenem, Diflucan and Vanco Sputum c/s: no organism Procalcitonin normal all antibiotics discontinued 5. Paroxysmal A Fib with RVR and MATs better controlled Cardizem drip was started , now d/c Dr Badillo consulted on Digoxin , cardizem PO ASA 81 mg PO daily Toprol discontinued currently not on anticoagulation Replace K Hold Plaquenil as may exacerbate arrhythmia 6. Chronic CHF (congestive heart failure), Diastolic Dysfunction/Pulm HTN Continue Lasix PRN 7. HTN (hypertension) BP stable 8. Hyperlipidemia Atorvastatin 10 mg PO QHS 9. GERD (gastroesophageal reflux disease) Protonix 40 mg 10. Rheumatoid arthritis/Peripheral Neuropathy of Bilateral Feet History Interstitial Lung Disease Methotrexate 15 mg PO every Saturday- will hold for now as discussed with Dr Satish alvarado Folic Acid d/c Plaquenil due to cardiac arrythmias d/c Gabapentin due to lethargy 11. Peripheral Vascular Disease/Chronic Venous Insufficiency With chronic LE edema and venous stasis erythematous toes bilaterally and cool to touch Lac-hydrin lotion to dry skin LE Continue ASA 12. UTI Urine culture positive for Enteroccocus faecalis (09/24/16) repeat urine cx growing yeast Started on Diflucan Pt received Meropenem and Vanco 13. Thrombocytopenia/ anemia prob sec to Infection, meds hold Lovenox for now monitor closely HIT-negative 14. Abdominal Pain-resolved poss UTI abd exam unremarkable 15. Leukocytosis --improving most likely steroid induced uA showed large RB C and WBC but no LE and nitrates F/u urine cx afebrile 16. DVT prophylaxis Lovenox on hold
[2016-10-20] MEDS: Fluconazole IV 100mg/50 ml NS 50 ML IVPB SCH (08:54)
[2016-10-20] MEDS: methylPREDNISolone 20 MG in Sodium Chloride 0.9% 50 ML IVPB SCH ×2 (10:30→22:05)
--- NOTE | 2016-10-20 23:17 | PN ---
CRITICAL CARE PROGRESS NOTE DATE: 10/20/2016 LOCATION: The patient in ICU, bed 422. TIME SPENT: 35 minutes. SUBJECTIVE: The patient is seen and examined at the bedside. A 66-year-old female, reformed smoker, chronic obstructive pulmonary disease recently diagnosed, metastatic squamous cell carcinoma of left lung, paroxysmal atrial fibrillation/MAT, urinary tract infection, admitted with acute respiratory failure, requiring BiPAP at night and high flow nasal oxygen in the morning. Currently, DO NOT RESUSCITATE/DO NOT INTUBATE status at the request of the patient and family. Overnight telemetry, still in AFib with rate controlled, remains normotensive, afebrile. This morning, alert, awake, off BiPAP; on high flow nasal oxygen saturating over 94%. Alert and awake, follows commands appropriate. No distress noted. Tolerating p.o. feeds. Denies shortness of breath at rest, occasional dry cough and itchy/irritation in the throat. PHYSICAL EXAMINATION: VITAL SIGNS: Temperature 98.4, heart rate 95 and irregular, blood pressure 148/71, respiratory rate 20-30 thoracoabdominal saturating 97% on high-flow nasal oxygen 30L with FiO2 of 50%. Intake 1180 and output 680. Positive balance of 100 mL. HEAD, EYES, EARS, NOSE AND THROAT: Pupils are reactive. Conjunctivae pink. Sclerae white. NECK: Supple. Slight skin breakdown with erythema on the root of the nose. Trachea central. CHEST: Bilateral breath sounds. Expiration prolonged. Scattered dry rales on both lungs. HEART: Rhythm irregular. No audible murmur. ABDOMEN: Bowel sounds present. Soft. Liver and spleen are not palpable. EXTREMITIES: 1+ dependent edema. Peripheral pulses are intact. No palpable cord. NEUROLOGIC: Follows commands appropriate. Moves all four extremities. No sensory impairment. Deep tendon reflex 2+ bilaterally. CURRENT MEDICATIONS: Tylenol 650 q. 6 hours p.r.n., Diamox 500 three times daily, DuoNeb 3 mL every 6 hours, aspirin 81 mg daily, Lanoxin 0.125 mg IV push daily, Cardizem 30 mg p.o. q. 6 hours, Pepcid 40 mg p.o. at bedtime, fluconazole 100 mg IV daily, folic acid 2 mg daily, Lac-Hydrin 12% one application twice daily topically, Solu-Medrol 20 mg IV q. 12 hours, Provigil 200 mg p.o. daily, morphine sulfate 1 mg IV q. 4 hours p.r.n. and Zofran 4 mg IV q. 6 hours p.r.n. LABORATORY DATA: WBC 10.6, hemoglobin 9.5, hematocrit 29.6 and platelet count 85. Heparin-induced thrombocytopenia, negative. SMA-7; sodium 141, potassium 4.2, chloride 98, CO2 of 39, blood urea nitrogen 29, creatinine 0.8, glucose 240, calcium 10. Urinalysis: Urobilinogen 4, rbc 237, microscopic wbc 30. Urine culture, no growth. Sputum culture, no growth. IMPRESSION: Neuro; oriented to name, place and time. Pulmonary; hypercapnic hypoxic respiratory failure, on bilevel positive airway pressure at night and high-flow nasal oxygen in the morning. No distress noted. Occasional dry cough improved on bronchodilator and systemic steroid Diamox and bronchodilator. Cardiac, atrial fibrillation, rate uncontrolled on Cardizem 30 mg p.o. q. 6 hours, off metoprolol. Gastrointestinal, tolerating p.o. feeds. No sign of aspiration. Hematology; thrombocytopenia, stable. Anemia of chronic disease. Endocrine, tolerating p.o. feeds and maintain blood sugar less than 180 mg. Renal, stable. Sacral decubitus partial thickness, continue wound care with frequent change from position. Continue comfort care. Awaiting for evaluation by [facility] for possible transfer and admission to continue physical therapy and respiratory care. Pedro Cifuentes MD
[2016-10-21] MEDS: Albuterol-Ipratrop 3 mg / 0.5 (3 ml) UD INH SCH ×4 (09:10→19:19)
[2016-10-21] MEDS: Ammonium Lactate 12% Cream (140 g) TOP SCH ×2 (10:03→17:02)
[2016-10-21] MEDS: Digoxin 500 mcg/2ml (0.5 mg/2ml) Inj IVP SCH (10:04)
[2016-10-21] MEDS: methylPREDNISolone 20 MG in Sodium Chloride 0.9% 50 ML IVPB SCH ×2 (10:07→21:11)
[2016-10-21] MEDS: Fluconazole IV 100mg/50 ml NS 50 ML IVPB SCH (10:18)
--- NOTE | 2016-10-21 10:49 | CP.PCM.PN ---
Subjective - Date & Time of Evaluation Date of Evaluation: 10/21/16 Time of Evaluation: 10:48 - Subjective Subjective: Pt continues to do well on Bipap and HFNC feeling well this morning tolerating bfast well will order PT for tomorrow for strength and deconditioning HD stable NAD Objective - Vital Signs/Intake and Output Vital Signs (last 24 hours): Temp Pulse Resp BP Pulse Ox 98.0 F 83 25 H 149/84 99 10/21/16 08:00 10/21/16 08:00 10/21/16 08:30 10/21/16 08:00 10/21/16 08:00 GEN: WDWN, ALERT, COOPERATIVE HEENT: NCAT, PERRL, EOMI HEART: +S1+S2, RRR NO MRG LUNG: CTAB, decreased bs bilaterally NO WRR ABD: SOFT BSX4 NT ND NO HSM NO MASS EXT: WARM, WELL PERFUSED NEURO: AA0X3, STRENGTH AND SENSATION EQUAL AND BILATERAL SKIN: WARM DRY PSYCH: NORMAL MOOD NORMAL AFFECT Intake and Output: 10/21/16 10/21/16 06:59 18:59 Intake Total 50 Output Total 250 Balance -200 - Medications Medications: Current Medications Acetaminophen (Tylenol 325mg Tab) 650 mg PO Q6 PRN PRN Reason: Fever >100.4 F Acetazolamide (Diamox 250 Mg Tab) 500 mg PO TID [facility] Last Admin: 10/21/16 10:02 Dose: 500 mg Albuterol/Ipratropium (Duoneb 3 Mg/0.5 Mg (3 Ml) Ud) 3 ml INH RQID [facility] Last Admin: 10/20/16 19:12 Dose: 3 ml Aspirin (Aspirin Chewable) 81 mg PO DAILY [facility] Last Admin: 10/21/16 10:01 Dose: 81 mg Digoxin (Lanoxin) 0.125 mg IVP DAILY [facility] Last Admin: 10/21/16 10:04 Dose: 0.125 mg Diltiazem HCl (Cardizem) 30 mg PO 0000,0600,1200,1800 [facility] Last Admin: 10/21/16 06:19 Dose: 30 mg Famotidine (Pepcid) 40 mg PO HS [facility] Last Admin: 10/20/16 22:26 Dose: Not Given Folic Acid (Folic Acid) 2 mg PO DAILY [facility] Last Admin: 10/21/16 10:03 Dose: 2 mg Fluconazole (Diflucan Iv 100 Mg/50 Ml Ns) 50 mls @ 50 mls/hr IVPB DAILY [facility] Last Admin: 10/21/16 10:18 Dose: 50 mls/hr Methylprednisolone 20 mg/ (Sodium Chloride) 50.32 mls @ 100 mls/hr IVPB Q12 [facility] Last Admin: 10/21/16 10:07 Dose: 100 mls/hr Lactic Acid (Lac-Hydrin 12% Cream (140 G)) 1 ea TOP BID [facility] Last Admin: 10/21/16 10:03 Dose: 1 applic Modafinil (Provigil) 200 mg PO DAILY [facility] Last Admin: 10/20/16 08:54 Dose: 200 mg Morphine Sulfate (Morphine) 1 mg IVP Q4 PRN PRN Reason: Anxiety Last Admin: 10/19/16 10:31 Dose: 1 mg Ondansetron HCl (Zofran Inj) 4 mg IVP Q6 PRN PRN Reason: Nausea/Vomiting - Labs Labs: 10/19/16 06:32 10/19/16 06:32 Assessment and Plan - Assessment and Plan (Free Text) Plan: 66 year old female PMHx Severe COPD, CHF, HTN, HLD, RA, Chronic LE Edema, PVD, MAT, 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 Prior to TCU, she was admitted to the ICU for Acute on Chronic Resp Failure, COPD exacerbation and Pneumonia. Patient is well known to our service from prior admissions. She is a chronic CO2 retainer with PCO2 baseline 80. Readmitted to the ICU, due to CO2 narcosis and was placed on Bipap in the ER with improvement of mental status, started on Duonebs, Solumedrol. Patient has very poor prognosis due to her respiratory status. She has episodes of lethargy due to CO2 narcosis on BIPAP and high flow O2 ventilation with high PS and FIO2 requirements. Code status DNR/DNI as per patient's and husbands wishes. Patient's family is agreeable for LTACH. 1. Acute on Chronic Respiratory Failure with Hypoxia and Hypercapnea likely sec to COPD Exacerbation Pt persistently hypercapneic and requires Bipap and high flow O2 Pulmonary, Dr. Yusuf following Continue settings BIPAP 20/6/24/40 % at night High flow O2 during the day 33 LPM / 50 % Continue Solumedrol , Duonebs, Acetazolamide Tapered Solumedrol 20 mg IV Q12 Patient has very poor prognosis DNR / DNI status Hospice consulted, patient family still undecided will refer for LTACH 2. Metastatic squamous cell carcinoma of the lung Patient has been following up in [facility] Recent PET scan showed metastatic disease 3. Altered mental status secondary to CO2 narcosis continue BIPAP and high flow O2 4. Bilateral pneumonia ID consulted - Dr Larsen Received Meropenem, Diflucan and Vanco Sputum c/s: no organism Procalcitonin normal all antibiotics discontinued 5. Paroxysmal A Fib with RVR and MATs better controlled Cardizem drip was started , now d/c Dr Badillo consulted on Digoxin , cardizem PO ASA 81 mg PO daily Toprol discontinued currently not on anticoagulation Replace K Hold Plaquenil as may exacerbate arrhythmia 6. Chronic CHF (congestive heart failure), Diastolic Dysfunction/Pulm HTN Continue Lasix PRN 7. HTN (hypertension) BP stable 8. Hyperlipidemia Atorvastatin 10 mg PO QHS 9. GERD (gastroesophageal reflux disease) Protonix 40 mg 10. Rheumatoid arthritis/Peripheral Neuropathy of Bilateral Feet History Interstitial Lung Disease Methotrexate 15 mg PO every Saturday- will hold for now as discussed with Dr Covarrubias cont Folic Acid d/c Plaquenil due to cardiac arrythmias d/c Gabapentin due to lethargy 11. Peripheral Vascular Disease/Chronic Venous Insufficiency With chronic LE edema and venous stasis erythematous toes bilaterally and cool to touch Lac-hydrin lotion to dry skin LE Continue ASA 12. UTI Urine culture positive for Enteroccocus faecalis (09/24/16) repeat urine cx growing yeast Started on Diflucan Pt received Meropenem and Vanco 13. Thrombocytopenia/ anemia prob sec to Infection, meds hold Lovenox for now monitor closely HIT-negative 14. Abdominal Pain-resolved poss UTI abd exam unremarkable 15. Leukocytosis --improving most likely steroid induced uA showed large RB C and WBC but no LE and nitrates F/u urine cx afebrile 16. DVT prophylaxis Lovenox on hold
[2016-10-21 13:23] LABS: HEMATOCRIT 30.2 % (34.0-47.0); MEAN CELL VOLUME 106.3 fl (81.0-99.0); MEAN CORPUSCULAR HGB CONC 31.1 g/dL (33.0-37.0); WHITE BLOOD COUNT 11.4 K/uL (4.8-10.8)
[2016-10-21 13:31] LABS: BLOOD UREA NITROGEN 22 mg/dl (7-17); CALCIUM 9.5 mg/dL (8.4-10.2); CARBON DIOXIDE 39 mmol/L (22-30); CHLORIDE 99 mmol/L (98-107); GFR AFRICAN-AMERICAN > 60; GLUCOSE,RANDOM 191 mg/dL (65-105); POTASSIUM 3.6 MMOL/L (3.6-5.0); SODIUM 140 mmol/l (132-148)
[2016-10-22 07:08] LABS: HEMATOCRIT 29.1 % (34.0-47.0); MEAN CELL VOLUME 104.9 fl (81.0-99.0); MEAN CORPUSCULAR HEMOGLOBIN 33.9 pg (27.0-31.0); MEAN CORPUSCULAR HGB CONC 32.3 g/dL (33.0-37.0); RED CELL DISTRIBUTION WIDTH 15.7 % (11.5-14.5); WHITE BLOOD COUNT 9.7 K/uL (4.8-10.8)
[2016-10-22 07:30] LABS: BLOOD UREA NITROGEN 21 mg/dl (7-17); CHLORIDE 97 mmol/L (98-107); GFR AFRICAN-AMERICAN > 60; GLUCOSE,RANDOM 169 mg/dL (65-105); POTASSIUM 3.7 MMOL/L (3.6-5.0); SODIUM 139 mmol/l (132-148)
[2016-10-22] MEDS: Albuterol-Ipratrop 3 mg / 0.5 (3 ml) UD INH SCH ×4 (07:50→19:38)
[2016-10-22 07:54] LABS: CARBON DIOXIDE 41 mmol/L (22-30)
--- NOTE | 2016-10-22 08:30 | CP.PCM.PN ---
Subjective - Date & Time of Evaluation Date of Evaluation: 10/22/16 Time of Evaluation: 08:27 - Subjective Subjective: Transferred to telemetry. Remains clinically stable. Rate controlled a fib with diltiazem and digoxin. Continues to use NPPV with BiPAP mask and HFNC. Had one dose of haloperidol the evening of transfer. All other meds have remained the same. No leukocytosis, stable Hgb, platelets dropped to 70. Remains hyperglycemic with finger stick levels from 164-348. Difficult to maintain good fit of face mask despite using gel pad. Placed on HFNC at 40% oxygen and 35LPM flow, SpO2 maintained around 90%. She did have a deep cough with expectoration of dark bloody sputum. Breath sounds are present bilaterally, shortened I phase, no wheezes, +dry rales bilaterally. Heart sounds are distant, rhythm irregular but rate controlled. Process for obtaining a bed in [facility] underway. Changed to PO medrol 12MG BID, fluconazole discontinued. Diltiazem changed to CD 120MG once daily. Objective - Vital Signs/Intake and Output Vital Signs (last 24 hours): Temp Pulse Resp BP Pulse Ox 98.7 F 90 24 103/54 L 99 10/22/16 08:00 10/22/16 08:00 10/22/16 08:00 10/22/16 08:00 10/22/16 08:00 Intake and Output: 10/21/16 10/22/16 23:59 11:59 Intake Total 700 470 Output Total 1000 350 Balance -300 120 - Medications Medications: Current Medications Acetaminophen (Tylenol 325mg Tab) 650 mg PO Q6 PRN PRN Reason: Fever >100.4 F Acetazolamide (Diamox 250 Mg Tab) 500 mg PO TID [facility] Last Admin: 10/21/16 16:59 Dose: 500 mg Albuterol/Ipratropium (Duoneb 3 Mg/0.5 Mg (3 Ml) Ud) 3 ml INH RQID [facility] Last Admin: 10/22/16 07:50 Dose: 3 ml Aspirin (Aspirin Chewable) 81 mg PO DAILY [facility] Last Admin: 10/21/16 10:01 Dose: 81 mg Digoxin (Lanoxin) 0.125 mg IVP DAILY [facility] Last Admin: 10/21/16 10:04 Dose: 0.125 mg Diltiazem HCl (Cardizem Cd) 120 mg PO DAILY [facility] Famotidine (Pepcid) 40 mg PO HS [facility] Last Admin: 10/21/16 21:14 Dose: 40 mg Folic Acid (Folic Acid) 2 mg PO DAILY [facility] Last Admin: 10/21/16 10:03 Dose: 2 mg Lactic Acid (Lac-Hydrin 12% Cream (140 G)) 1 ea TOP BID [facility] Last Admin: 10/21/16 17:02 Dose: 1 applic Methylprednisolone (Medrol) 12 mg PO BID [facility] Modafinil (Provigil) 200 mg PO DAILY [facility] Last Admin: 10/21/16 12:18 Dose: 200 mg Morphine Sulfate (Morphine) 1 mg IVP Q4 PRN PRN Reason: Anxiety Last Admin: 10/19/16 10:31 Dose: 1 mg Ondansetron HCl (Zofran Inj) 4 mg IVP Q6 PRN PRN Reason: Nausea/Vomiting - Labs Labs: 10/22/16 05:15 10/22/16 05:15 Assessment and Plan (1) Pulmonary infiltrates on CXR Status: Acute (2) Acute on chronic respiratory failure with hypoxia and hypercapnia Status: Acute (3) Atrial fibrillation Status: Chronic (4) 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
[2016-10-22] MEDS: Ammonium Lactate 12% Cream (140 g) TOP SCH ×2 (09:21→16:30)
[2016-10-22] MEDS: Digoxin 500 mcg/2ml (0.5 mg/2ml) Inj IVP SCH (09:33)
[2016-10-22] MEDS: diltiaZEM 120 mg/24 Hours CD Cap PO SCH ×2 (09:43→09:51)
--- NOTE | 2016-10-22 18:32 | CP.PCM.PN ---
Subjective - Date & Time of Evaluation Date of Evaluation: 10/22/16 Time of Evaluation: 07:30 - Subjective Subjective: Patient seen and examined bedside. No acute issues overnight. Chronically ill female lying in bed on Bipap with FIO2 50 % 20/6 RR 24 . Saturating 93-96 % , afebrile Afib on monitor , rate controlled Awake and alert , denies any pain. in Mild respiratory distress waiting for LTACH placement Objective - Vital Signs/Intake and Output Vital Signs (last 24 hours): Temp Pulse Resp BP Pulse Ox 98.2 F 103 H 20 133/64 93 L 10/22/16 15:36 10/22/16 15:36 10/22/16 15:52 10/22/16 15:36 10/22/16 15:36 Intake and Output: 10/22/16 10/22/16 06:59 18:59 Intake Total 475 920 Output Total 550 950 Balance -75 -30 - Medications Medications: Current Medications Acetaminophen (Tylenol 325mg Tab) 650 mg PO Q6 PRN PRN Reason: Fever >100.4 F Acetazolamide (Diamox 250 Mg Tab) 500 mg PO TID [facility] Last Admin: 10/22/16 16:29 Dose: 500 mg Albuterol/Ipratropium (Duoneb 3 Mg/0.5 Mg (3 Ml) Ud) 3 ml INH RQID [facility] Last Admin: 10/22/16 15:35 Dose: 3 ml Aspirin (Aspirin Chewable) 81 mg PO DAILY [facility] Last Admin: 10/22/16 09:21 Dose: 81 mg Digoxin (Lanoxin) 0.125 mg IVP DAILY [facility] Last Admin: 10/22/16 09:33 Dose: 0.125 mg Diltiazem HCl (Cardizem Cd) 120 mg PO DAILY [facility] Last Admin: 10/22/16 09:51 Dose: 120 mg Famotidine (Pepcid) 40 mg PO HS [facility] Last Admin: 10/21/16 21:14 Dose: 40 mg Folic Acid (Folic Acid) 2 mg PO DAILY [facility] Last Admin: 10/22/16 09:20 Dose: 2 mg Insulin Detemir (Levemir) 10 units SC HS [facility] Lactic Acid (Lac-Hydrin 12% Cream (140 G)) 1 ea TOP BID [facility] Last Admin: 10/22/16 16:30 Dose: 1 applic Methylprednisolone (Medrol) 12 mg PO BID [facility] Last Admin: 10/22/16 16:30 Dose: 12 mg Modafinil (Provigil) 200 mg PO DAILY [facility] Last Admin: 10/22/16 10:42 Dose: 200 mg Morphine Sulfate (Morphine) 1 mg IVP Q4 PRN PRN Reason: Anxiety Last Admin: 10/19/16 10:31 Dose: 1 mg Ondansetron HCl (Zofran Inj) 4 mg IVP Q6 PRN PRN Reason: Nausea/Vomiting - Labs Labs: 10/22/16 05:15 10/22/16 05:15 - Constitutional Appears: Chronically Ill, Other (overweight ) - Head Exam Head Exam: NORMOCEPHALIC Additional comments: nasal bridge pressure wound - Eye Exam Eye Exam: EOMI, PERRL - ENT Exam ENT Exam: Mucous Membranes Moist, Normal Exam - Neck Exam Neck Exam: Normal Inspection - Respiratory Exam Respiratory Exam: Accessory Muscle Use, Decreased Breath Sounds (bibasilar), Prolonged Expiratory Phase. absent: Wheezes - Cardiovascular Exam Cardiovascular Exam: Irregular Rhythm. absent: JVD - GI/Abdominal Exam GI & Abdominal Exam: Soft, Normal Bowel Sounds. absent: Distended, Guarding, Tenderness, Rebound - Rectal Exam Rectal Exam: Deferred - Extremities Exam Extremities Exam: Pedal Edema (2 +) Additional comments: multiple echymotic lesions to upper extremities bilaterally - Back Exam Back Exam: NORMAL INSPECTION - Neurological Exam Neurological Exam: Alert, Awake, Oriented x3 Additional comments: soft voice - Psychiatric Exam Psychiatric exam: Anxious - Skin Skin Exam: Dry, Pallor, Warm Assessment and Plan - Assessment and Plan (Free Text) Assessment: 66 year old female PMHx Severe COPD, CHF, HTN, HLD, RA, Chronic LE Edema, PVD, MAT, 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 Prior to TCU, she was admitted to the ICU for Acute on Chronic Resp Failure, COPD exacerbation and Pneumonia. Patient is well known to our service from prior admissions. She is a chronic CO2 retainer with PCO2 baseline 80. Readmitted to the ICU, due to CO2 narcosis and was placed on Bipap in the ER with improvement of mental status, started on Duonebs, Solumedrol. Patient has very poor prognosis due to her respiratory status. She has episodes of lethargy due to CO2 narcosis on BIPAP and high flow O2 ventilation with high PS and FIO2 requirements. Code status DNR/DNI as per patient's and husbands wishes. Patient's family is agreeable for LTACH. 1. Acute on Chronic Respiratory Failure with Hypoxia and Hypercapnea likely sec to COPD Exacerbation Pt persistently hypercapneic and requires Bipap and high flow O2 Pulmonary, Dr. Yusuf following Continue settings BIPAP 20//24/40 % at night High flow O2 during the day 33 LPM / 50 % Continue Solumedrol , Duonebs, Acetazolamide Changed to Methylprednisolone 1 2mg po BID Patient has very poor prognosis DNR / DNI status Hospice consulted, patient family still undecided Referred to LTACH 2. Metastatic squamous cell carcinoma of the lung Patient has been following up in [facility] Recent PET scan showed metastatic disease 3. Altered mental status secondary to CO2 narcosis continue BIPAP and high flow O2 4. Bilateral pneumonia- finished treatment ID was consulted Dr Larsen Received Meropenem, Diflucan and Vanco Sputum c/s: no organism Procalcitonin normal all antibiotics discontinued 5. Paroxysmal A Fib with RVR and MATs better controlled Cardizem drip was started , now d/c Dr Badillo consulted on Digoxin , cardizem PO Changed cardizem to 120 mg po daily today Continue ASA 81 mg PO daily Toprol discontinued currently not on anticoagulation Replace K Hold Plaquenil as may exacerbate arrhythmia 6. Chronic CHF (congestive heart failure), Diastolic Dysfunction/Pulm HTN Continue Lasix PRN 7. HTN (hypertension) BP stable 8. Hyperlipidemia Atorvastatin 10 mg PO QHS 9. GERD (gastroesophageal reflux disease) Protonix 40 mg 10. Rheumatoid arthritis/Peripheral Neuropathy of Bilateral Feet History Interstitial Lung Disease Methotrexate 15 mg PO every Saturday- will hold for now as discussed with Dr Satish alvarado Folic Acid d/c Plaquenil due to cardiac arrythmias d/c Gabapentin due to lethargy 11. Peripheral Vascular Disease/Chronic Venous Insufficiency With chronic LE edema and venous stasis erythematous toes bilaterally and cool to touch Lac-hydrin lotion to dry skin LE Continue ASA 12. UTI Urine culture positive for Enteroccocus faecalis (09/24/16) repeat urine cx growing yeast so was Started on Diflucan Pt received Meropenem and Vanco will d/c diflucan 13. Thrombocytopenia/ anemia prob sec to Infection, meds hold Lovenox for now plt 70 K monitor closely HIT-negative 14. Abdominal Pain-resolved poss UTI abd exam unremarkable 15. Leukocytosis --improving most likely steroid induced 16. DVT prophylaxis Lovenox on hold
[2016-10-22] MEDS ORDERED: Insulin Detemir 100 Units/ml Inj SC SCH (22:00)
[2016-10-23 05:35] LABS: MEAN CELL VOLUME 104.5 fl (81.0-99.0); MEAN CORPUSCULAR HGB CONC 31.6 g/dL (33.0-37.0); RED CELL DISTRIBUTION WIDTH 16.2 % (11.5-14.5); WHITE BLOOD COUNT 14.5 K/uL (4.8-10.8)
[2016-10-23 05:41] LABS: BLOOD UREA NITROGEN 18 mg/dl (7-17); CALCIUM 10.4 mg/dL (8.4-10.2); CHLORIDE 97 mmol/L (98-107); GFR AFRICAN-AMERICAN > 60; GLUCOSE,RANDOM 103 mg/dL (65-105); POTASSIUM 3.8 MMOL/L (3.6-5.0); SODIUM 140 mmol/l (132-148)
[2016-10-23 05:45] LABS: CARBON DIOXIDE 40 mmol/L (22-30)
[2016-10-23] MEDS: Albuterol-Ipratrop 3 mg / 0.5 (3 ml) UD INH SCH ×2 (07:19→11:06)
[2016-10-23] MEDS: Digoxin 500 mcg/2ml (0.5 mg/2ml) Inj IVP SCH (08:03)
[2016-10-23 08:04] VITALS: PULSE 132
[2016-10-23] MEDS: diltiaZEM 120 mg/24 Hours CD Cap PO SCH (08:04)
[2016-10-23] MEDS: Ammonium Lactate 12% Cream (140 g) TOP SCH (08:05)
--- NOTE | 2016-10-23 08:19 | CP.PCM.PN ---
Subjective - Date & Time of Evaluation Date of Evaluation: 10/23/16 Time of Evaluation: : - Subjective Subjective: Seen on morning rounds in telemetry. Still on BiPAP mask ventilation from the overnight. AM CXR done earlier, unable to review, program not working? AM plasma glucose 103, CO2 40. Vital signs have been stable overnight. Easily awakened and changed to HFNC. SpO2 remains stable at 90% on nasal canula. Expectorated moderate amount of thick, mucoid, dark bloody sputum. Breath sounds are present bilaterally w/o audible wheeze. Dry rales are present bilaterally. Heart rate controlled ~80 this morning; had transient increased HR yesterday after change to OD diltiazem. Dependant edema still ++ w/o cyanosis. Planned discharge to [facility] later today. Medical regimen will remain unchanged for now. Alternating BiPAP mask ventilation and HFNC to continue as well. Objective - Vital Signs/Intake and Output Vital Signs (last 24 hours): Temp Pulse Resp BP Pulse Ox 97.7 F 130 H 28 H 121/80 96 10/23/16 03:42 10/23/16 08:04 10/23/16 05:41 10/23/16 08:04 10/23/16 03:58 Intake and Output: 10/22/16 10/23/16 23:59 11:59 Intake Total 450 120 Output Total 600 575 Balance -150 -455 - Medications Medications: Current Medications Acetaminophen (Tylenol 325mg Tab) 650 mg PO Q6 PRN PRN Reason: Fever >100.4 F Acetazolamide (Diamox 250 Mg Tab) 500 mg PO TID [facility] Last Admin: 10/23/16 08:04 Dose: 500 mg Albuterol/Ipratropium (Duoneb 3 Mg/0.5 Mg (3 Ml) Ud) 3 ml INH RQID [facility] Last Admin: 10/23/16 07:19 Dose: 3 ml Aspirin (Aspirin Chewable) 81 mg PO DAILY [facility] Last Admin: 10/23/16 08:06 Dose: 81 mg Digoxin (Lanoxin) 0.125 mg IVP DAILY [facility] Last Admin: 10/23/16 08:03 Dose: 0.125 mg Diltiazem HCl (Cardizem Cd) 120 mg PO DAILY [facility] Last Admin: 10/23/16 08:04 Dose: 120 mg Famotidine (Pepcid) 40 mg PO HS [facility] Last Admin: 10/22/16 21:14 Dose: 40 mg Folic Acid (Folic Acid) 2 mg PO DAILY [facility] Last Admin: 10/23/16 08:06 Dose: 2 mg Insulin Detemir (Levemir) 10 units SC HS [facility] Last Admin: 10/22/16 21:14 Dose: 10 units Lactic Acid (Lac-Hydrin 12% Cream (140 G)) 1 ea TOP BID [facility] Last Admin: 10/23/16 08:05 Dose: 1 applic Methylprednisolone (Medrol) 12 mg PO BID [facility] Last Admin: 10/23/16 08:04 Dose: 12 mg Modafinil (Provigil) 200 mg PO DAILY [facility] Last Admin: 10/22/16 10:42 Dose: 200 mg Morphine Sulfate (Morphine) 1 mg IVP Q4 PRN PRN Reason: Anxiety Last Admin: 10/23/16 02:53 Dose: 1 mg Ondansetron HCl (Zofran Inj) 4 mg IVP Q6 PRN PRN Reason: Nausea/Vomiting - Labs Labs: 10/23/16 04:30 10/23/16 04:30 Assessment and Plan (1) Pulmonary infiltrates on CXR Status: Acute (2) Acute on chronic respiratory failure with hypoxia and hypercapnia Status: Acute (3) Atrial fibrillation Status: Chronic (4) 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
--- NOTE | 2016-10-23 09:44 | CP.PCM.DIS ---
Provider - Provider Date of Admission: 10/05/16 13:52 Attending physician: Sindy Castañeda DO Primary care physician: DR. Yusuf Consults: ID consult cardiology consult pulmonary consult critical care consult hospice consult Time Spent in preparation of Discharge (in minutes): 20 Hospital Course - Lab Results Lab Results: Micro Results 10/20/16 19:00 Naris MRSA Culture (Admit) - Final MRSA NOT DETECTED 10/16/16 11:00 Urine,Catheterized Urine Culture - Final No Growth (<1,000 CFU/ML) 10/07/16 15:15 Sputum Gram Stain - Final 10/07/16 15:15 Sputum Sputum Culture - Final No growth. 10/05/16 17:15 Nose MRSA Culture (Admit) - Final MRSA NOT DETECTED Most Recent Lab Values WBC 14.5 K/uL (4.8-10.8) H 10/23/16 04:30 RBC 3.25 Mil/uL (3.80-5.20) L 10/23/16 04:30 Hgb 10.7 g/dL (12.0-16.0) L 10/23/16 04:30 Hct 34.0 % (34.0-47.0) 10/23/16 04:30 MCV 104.5 fl (81.0-99.0) H 10/23/16 04:30 MCH 33.0 pg (27.0-31.0) H 10/23/16 04:30 MCHC 31.6 g/dL (33.0-37.0) L 10/23/16 04:30 RDW 16.2 % (11.5-14.5) H 10/23/16 04:30 Plt Count 101 K/uL (130-400) L D 10/23/16 04:30 MPV 10.5 fl (7.2-11.7) 10/17/16 04:20 Neut % (Auto) 97.0 % (50.0-75.0) H 10/17/16 04:20 Lymph % (Auto) 1.3 % (20.0-40.0) L 10/17/16 04:20 Emanuel % (Auto) 1.5 % (0.0-10.0) 10/17/16 04:20 Eos % (Auto) 0.0 % (0.0-4.0) 10/17/16 04:20 Baso % (Auto) 0.2 % (0.0-2.0) 10/17/16 04:20 Neut # 9.6 K/uL (1.8-7.0) H 10/17/16 04:20 Lymph # 0.1 K/uL (1.0-4.3) L 10/17/16 04:20 Emanuel # 0.1 K/uL (0.0-0.8) 10/17/16 04:20 Eos # 0.0 K/uL (0.0-0.7) 10/17/16 04:20 Baso # 0.0 K/uL (0.0-0.2) 10/17/16 04:20 Neutrophils % (Manual) 98 % (42-75) H 10/19/16 06:25 Band Neutrophils % 2 % (0-2) 10/19/16 06:25 Lymphocytes % (Manual) 1 % (20-50) L 10/19/16 06:25 Reactive Lymphs % 1 % (0-0) H 10/11/16 04:25 Monocytes % (Manual) 0 % (0-10) 10/19/16 06:25 Eosinophils % (Manual) Cancelled 10/07/16 05:30 Basophils % (Manual) Cancelled 10/07/16 05:30 Metamyelocytes % Cancelled 10/07/16 05:30 Myelocytes % Cancelled 10/07/16 05:30 Promyelocytes % Cancelled 10/07/16 05:30 Blast Cells % Cancelled 10/07/16 05:30 Plasma Cell % (Manual) Cancelled 10/07/16 05:30 Nucleated RBC % 1 % (0-0) H 10/08/16 06:03 Hypersegmented Polys Cancelled 10/07/16 05:30 Smudge Cells Cancelled 10/07/16 05:30 Toxic Granulation Present 10/06/16 05:30 Dohle Bodies Cancelled 10/07/16 05:30 Michelle Rods Cancelled 10/07/16 05:30 Platelet Estimate Markedly decreased (NORMAL) L 10/19/16 06:25 Plt Clumps, EDTA Cancelled 10/07/16 05:30 Large Platelets Present 10/06/16 05:30 Giant Platelets Present 10/06/16 05:30 RBC Morphology Cancelled 10/07/16 05:30 Polychromasia Slight 10/17/16 04:20 Hypochromasia (manual) Moderate 10/19/16 06:25 Poikilocytosis (manual Slight 10/05/16 14:17 Basophilic Stippling Slight 10/08/16 06:03 Anisocytosis (manual) Slight 10/17/16 04:20 Microcytosis (manual) Cancelled 10/07/16 05:30 Macrocytosis (manual) Slight 10/08/16 06:03 Spherocytes Cancelled 10/07/16 05:30 Sickle Cells Cancelled 10/07/16 05:30 Target Cells Cancelled 10/07/16 05:30 Tear Drop Cells Cancelled 10/07/16 05:30 Ovalocytes Slight 10/08/16 06:03 Stomatocytes Slight 10/19/16 06:25 Helmet Cells Cancelled 10/07/16 05:30 [place] Bodies Cancelled 10/07/16 05:30 Corazon Cells Cancelled 10/07/16 05:30 Acanthocytes (Spur) Slight 10/19/16 06:25 Rouleaux Cancelled 10/07/16 05:30 Schistocytes Cancelled 10/07/16 05:30 Hep-Luisana Thrombocytopen Negative (Negative) 10/12/16 09:15 pCO2 97 mm/Hg (35-45) H* 10/09/16 04:00 pO2 63 mm/Hg (80-100) L 10/09/16 04:00 HCO3 44.3 mmol/L (21-28) H* 10/09/16 04:00 ABG pH 7.36 (7.35-7.45) 10/09/16 04:00 ABG Total CO2 57.8 mmol/L (22-28) H 10/09/16 04:00 ABG O2 Saturation 95.4 % (95-98) 10/09/16 04:00 ABG O2 Content 13.1 ML/dL (15-23) L 10/09/16 04:00 ABG Base Excess 25.0 mmol/L (-2.0-3.0) H 10/09/16 04:00 ABG Hemoglobin 10.1 g/dL (11.7-17.4) L 10/09/16 04:00 ABG Carboxyhemoglobin 2.3 % (0.5-1.5) H 10/09/16 04:00 POC ABG HHb (Measured) 4.4 % (0.0-5.0) 10/09/16 04:00 ABG Methemoglobin 1.5 % (0.0-3.0) 10/09/16 04:00 ABG O2 Capacity 13.7 mL/dL (16-24) L 10/09/16 04:00 Jorge Luis Test Yes 10/09/16 04:00 ABG Potassium 3.1 mmol/L (3.6-5.2) L 10/06/16 05:10 VBG pH 7.30 (7.32-7.43) L 10/05/16 14:20 VBG pCO2 123 mmHg (40-60) H* 10/05/16 14:20 VBG HCO3 44.5 mmol/L 10/05/16 14:20 VBG Total CO2 64.3 mmol/L (22-28) H 10/05/16 14:20 VBG O2 Sat (Calc) 64.2 % (40-65) 10/05/16 14:20 VBG Base Excess 26.7 mmol/L (0.0-2.0) H 10/05/16 14:20 VBG Potassium 3.9 mmol/L (3.6-5.2) 10/05/16 14:20 A-a O2 Difference 172.0 mm/Hg 10/09/16 04:00 Hgb O2 Saturation 91.9 % (95.0-98.0) L 10/09/16 04:00 Sodium 142.0 mmol/L (132-148) 10/06/16 05:10 Chloride 93.0 mmol/L (98-107) L 10/06/16 05:10 Glucose 179 mg/dL (65-105) H 10/06/16 05:10 Lactate 0.9 mmol/L (0.7-2.1) 10/06/16 05:10 Vent Mode Bipap 10/07/16 05:57 Mechanical Rate 24 10/09/16 04:00 FiO2 50.0 % 10/09/16 04:00 Inspiratory BiPAP 20 10/09/16 04:00 Expiratory BiPAP 6 10/09/16 04:00 Crit Value Called To Juan Ramon rubi 10/09/16 04:00 Crit Value Called By Ted 10/09/16 04:00 Crit Value Read Back Y 10/09/16 04:00 Blood Gas Notified Time 546 10/09/16 04:00 Sodium 140 mmol/l (132-148) 10/23/16 04:30 Potassium 3.8 MMOL/L (3.6-5.0) 10/23/16 04:30 Chloride 97 mmol/L (98-107) L 10/23/16 04:30 Carbon Dioxide 40 mmol/L (22-30) H* 10/23/16 04:30 Anion Gap 7 (10-20) L 10/23/16 04:30 BUN 18 mg/dl (7-17) H 10/23/16 04:30 Creatinine 0.7 mg/dL (0.7-1.2) 10/23/16 04:30 Est GFR ( Amer) > 60 10/23/16 04:30 Est GFR (Non-Af Amer) > 60 10/23/16 04:30 POC Glucose (mg/dL) 101 mg/dL (65-110) 10/23/16 05:05 Random Glucose 103 mg/dL (65-105) 10/23/16 04:30 Lactic Acid 1.5 MMOL/L (0.7-2.1) 10/07/16 05:30 Calcium 10.4 mg/dL (8.4-10.2) H 10/23/16 04:30 Total Bilirubin 0.7 mg/dl (0.2-1.3) 10/17/16 04:20 AST 36 U/L (14-36) D 10/17/16 04:20 ALT 73 U/L (9-52) H D 10/17/16 04:20 Alkaline Phosphatase 80 U/L (38-126) 10/17/16 04:20 Total Protein 5.0 G/DL (6.3-8.2) L 10/17/16 04:20 Albumin 2.7 g/dL (3.5-5.0) L 10/17/16 04:20 Globulin 2.3 gm/dL (2.2-3.9) 10/17/16 04:20 Albumin/Globulin Ratio 1.2 (1.0-2.1) 10/17/16 04:20 Procalcitonin < 0.05 NG/ML (0.19-0.49) L 10/11/16 05:00 Arterial Blood Potassium 3.1 mmol/L (3.6-5.2) L 10/06/16 05:10 Venous Blood Potassium 3.9 mmol/L (3.6-5.2) 10/05/16 14:20 Urine Color Yellow (YELLOW) 10/16/16 08:28 Urine Clarity Slighty-cloudy (Clear) 10/16/16 08:28 Urine pH 6.0 (5.0-8.0) 10/16/16 08:28 Ur Specific [place] 1.023 (1.003-1.030) 10/16/16 08:28 Urine Protein 30 mg/dL (NEGATIVE) 10/16/16 08:28 Urine Glucose (UA) Neg mg/dL (Normal) 10/16/16 08:28 Urine Ketones Negative mg/dL (NEGATIVE) 10/16/16 08:28 Urine Blood Large (NEGATIVE) 10/16/16 08:28 Urine Nitrate Negative (NEGATIVE) 10/16/16 08:28 Urine Bilirubin Negative (NEGATIVE) 10/16/16 08:28 Urine Urobilinogen 4.0 mg/dL (0.2-1.0) H 10/16/16 08:28 Ur Leukocyte Esterase Neg April/uL (Negative) 10/16/16 08:28 Urine RBC (Auto) 237 /hpf (0-3) H 10/16/16 08:28 Urine Microscopic WBC 30 /hpf (0-5) H 10/16/16 08:28 Ur Squamous Epith Cells < 1 /hpf (0-5) 10/16/16 08:28 Vancomycin Trough 18.5 ug/mL (5.0-10.0) H 10/08/16 06:03 Digoxin 2.0 ng/mL (0.8-2.0) 10/15/16 17:10 SADE UFH Low Dose 0.1 0 % Release 10/12/16 09:15 SADE UFH Low Dose 0.5 0 % Release 10/12/16 09:15 SADE UFH High Dose 100 0 % Release 10/12/16 09:15 - Hospital Course Hospital Course: 66 year old female PMHx Severe COPD, CHF, HTN, HLD, RA, Chronic LE Edema, PVD, MAT, 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 Prior to TCU, she was admitted to the ICU for Acute on Chronic Resp Failure, COPD exacerbation and Pneumonia. Patient is well known to our service from prior admissions. She is a chronic CO2 retainer with PCO2 baseline 80. Readmitted to the ICU, due to CO2 narcosis and was placed on Bipap in the ER with improvement of mental status, started on Duonebs, Solumedrol. Patient has very poor prognosis due to her respiratory status. She has episodes of lethargy due to CO2 narcosis on BIPAP and high flow O2 ventilation with high PS and FIO2 requirements.She also was treated with Duonebs, Solumedrol Iv tapering dose ( now switched to Po 12 mg po BID ) She was treated for pneumonia and UTI this admission with full course of IV antibiotics.( including vanco, meropenem aqnd Diflucan) She also developed Afib with RVR and was started on cardizem PO and Digoxin with better control of HR . Code status DNR/DNI as per patient's and husbands wishes.She has very poor prognosis. will d/c patient to LTACH Patient's family is agreeable for LTACH. 1. Acute on Chronic Respiratory Failure with Hypoxia and Hypercapnea likely sec to COPD Exacerbation Pt persistently hypercapneic and requires Bipap and high flow O2 Pulmonary, Dr. Yusuf following Continue settings BIPAP 20/6/24/40 % at night High flow O2 during the day 33 LPM / 50 % Continue Solumedrol , Duonebs, Acetazolamide Changed to Methylprednisolone 1 2mg po BID Patient has very poor prognosis DNR / DNI status Hospice consulted, patient family still undecided d/c to LTACH 2. Metastatic squamous cell carcinoma of the lung Patient has been following up in [facility] Recent PET scan showed metastatic disease 3. Altered mental status secondary to CO2 narcosis continue BIPAP and high flow O2 4. Bilateral pneumonia- finished treatment ID was consulted Dr Larsen Received Meropenem, Diflucan and Vanco Sputum c/s: no organism Procalcitonin normal all antibiotics discontinued 5. Paroxysmal A Fib with RVR and MATs better controlled Cardizem drip was started , now d/c Dr Badillo consulted on Digoxin , cardizem PO Changed cardizem to 120 mg po daily today Continue ASA 81 mg PO daily Toprol discontinued currently not on anticoagulation Replace K Hold Plaquenil as may exacerbate arrhythmia 6. Chronic CHF (congestive heart failure), Diastolic Dysfunction/Pulm HTN Continue Lasix PRN 7. HTN (hypertension) BP stable 8. Hyperlipidemia Atorvastatin 10 mg PO QHS 9. GERD (gastroesophageal reflux disease) Protonix 40 mg 10. Rheumatoid arthritis/Peripheral Neuropathy of Bilateral Feet History Interstitial Lung Disease Methotrexate 15 mg PO every Saturday- will hold for now as discussed with Dr Satish alvarado Folic Acid d/c Plaquenil due to cardiac arrythmias d/c Gabapentin due to lethargy 11. Peripheral Vascular Disease/Chronic Venous Insufficiency With chronic LE edema and venous stasis erythematous toes bilaterally and cool to touch Lac-hydrin lotion to dry skin LE Continue ASA 12. UTI Urine culture positive for Enteroccocus faecalis (09/24/16) repeat urine cx growing yeast so was Started on Diflucan Pt received Meropenem and Vanco will d/c diflucan 13. Thrombocytopenia/ anemia prob sec to Infection, meds hold Lovenox for now plt 70 K monitor closely HIT-negative 14. Abdominal Pain-resolved poss UTI abd exam unremarkable 15. Leukocytosis most likely steroid induced 16. DVT prophylaxis Lovenox on hold Discharge Exam - Head Exam Head Exam: NORMOCEPHALIC Additional comments: chronically ill in mild respiratory distress , on BIPAp at night and high flow during the day nasal bridge pressure wound - Eye Exam Eye Exam: EOMI, PERRL - ENT Exam ENT Exam: Mucous Membranes Dry, Normal Exam - Neck Exam Neck exam: Normal Inspection - Respiratory Exam Respiratory Exam: Accessory Muscle Use, Prolonged Expiratory Phase, Respiratory Distress. absent: Wheezes - Cardiovascular Exam Cardiovascular Exam: Irregular Rhythm. absent: JVD - GI/Abdominal Exam GI & Abdominal Exam: Normal Bowel Sounds, Soft. absent: Guarding, Rebound, Tenderness - Rectal Exam Rectal Exam: Deferred - Extremities Exam Extremities exam: pedal edema (2 + with chronic venous stasis , multiple ecymotic areas to upper extremities) - Neurological Exam Neurological exam: Alert, CN II-XII Intact, Oriented x3 Additional comments: soft voice - Psychiatric Exam Psychiatric exam: Flat Affect, Normal Affect - Skin Skin Exam: Dry, Pallor, Warm Discharge Plan - Discharge Medications Prescriptions: Digoxin [Lanoxin] 0.125 mg PO DAILY #30 tab - Follow Up Plan Condition: GUARDED Disposition: Trans to Other Acute Care Hosp Patient education suggested?: Yes Additional Instructions: Discharge patient to LTACH DNR/DNI Referrals: Chapo Yusuf MD [Staff Provider] -
--- NOTE | 2016-10-23 09:55 | RAD ---
PROCEDURE: CHEST RADIOGRAPH, 1 VIEW HISTORY: respiratory insufficiency COMPARISON: 10/18/2016 FINDINGS: The right PICC line terminates in the SVC. LUNGS: There is interval improved aeration in both lungs with persistent diffuse interstitial thickening. No focal consolidation. PLEURA: No pneumothorax or pleural fluid seen. CARDIOVASCULAR: Normal. OSSEOUS STRUCTURES: No significant abnormalities. VISUALIZED UPPER ABDOMEN: Normal. OTHER FINDINGS: None. IMPRESSION: Interval improved aeration in both lungs with persistent pulmonary venous congestion/interstitial thickening.
[2016-10-23 12:28] VITALS: BP 126/75; PULSE 86; RESP 20; TEMP 99; O2SAT 94
== END 2016-10-23 14:00 | disposition short-term general hospital (02) | DRG 189 ==
LOC: H.ER 13:10 → H.ERHOLD 13:52 → H.ICU/CCU 15:43 → H.TEL 10-20 18:18
PROVIDERS: ADMIT Student in an Organized Health Care Education/Training Program; ATTEND Student in an Organized Health Care Education/Training Program
PROC: 5A09557 Assistance with Respiratory Ventilation, Greater than 96 Consecutive Hours, Continuous Positive Airway Pressure (ICD-10-PCS; principal; 2016-10-05)
DX: J96.22 Acute and chronic respiratory failure with hypercapnia (principal); G93.41 Metabolic encephalopathy; G92 Toxic encephalopathy; J84.9 Interstitial pulmonary disease, unspecified; J18.9 Pneumonia, unspecified organism; I11.0 Hypertensive heart disease with heart failure; I50.32 Chronic diastolic (congestive) heart failure; C79.9 Secondary malignant neoplasm of unspecified site; E87.2 Acidosis; C34.92 Malignant neoplasm of unspecified part of left bronchus or lung; I47.1 Supraventricular tachycardia; I48.92 Unspecified atrial flutter; J44.0 Chronic obstructive pulmonary disease with (acute) lower respiratory infection; J44.1 Chronic obstructive pulmonary disease with (acute) exacerbation; N39.0 Urinary tract infection, site not specified; R04.2 Hemoptysis; L89.159 Pressure ulcer of sacral region, unspecified stage; I27.2 Other secondary pulmonary hypertension; D69.6 Thrombocytopenia, unspecified; E11.65 Type 2 diabetes mellitus with hyperglycemia; G25.3 Myoclonus; B95.2 Enterococcus as the cause of diseases classified elsewhere; E78.5 Hyperlipidemia, unspecified; E66.09 Other obesity due to excess calories; D63.8 Anemia in other chronic diseases classified elsewhere; Z68.32 Body mass index [BMI] 32.0-32.9, adult; E78.00 Pure hypercholesterolemia, unspecified; F41.9 Anxiety disorder, unspecified; G62.9 Polyneuropathy, unspecified; G89.3 Neoplasm related pain (acute) (chronic); I48.0 Paroxysmal atrial fibrillation; I73.9 Peripheral vascular disease, unspecified; I87.2 Venous insufficiency (chronic) (peripheral); J96.21 Acute and chronic respiratory failure with hypoxia; K21.9 Gastro-esophageal reflux disease without esophagitis; M06.9 Rheumatoid arthritis, unspecified; T38.0X5A Adverse effect of glucocorticoids and synthetic analogues, initial encounter; Z51.5 Encounter for palliative care; Z66 Do not resuscitate; Z80.0 Family history of malignant neoplasm of digestive organs; Z83.3 Family history of diabetes mellitus; Z87.891 Personal history of nicotine dependence; Z99.81 Dependence on supplemental oxygen; J40 Bronchitis, not specified as acute or chronic; M19.90 Unspecified osteoarthritis, unspecified site; R09.02 Hypoxemia; R06.82 Tachypnea, not elsewhere classified